=== PATIENT | male | born 1965 | race Caucasian/White ===

== ENCOUNTER 2021-09-09 15:30 | Emergency (ER) | payer MEDICAID, SELFPAY ==
[2021-09-09 15:31] VITALS: BP 115/75; PULSE 68; RESP 18; TEMP 37.1; O2SAT 98; BMI 29.3
--- NOTE | 2021-09-09 15:49 | CT_ITS ---
EXAM: CT ABDOMEN AND PELVIS WITHOUT INTRAVENOUS CONTRAST CLINICAL INDICATION: abdominal pain TECHNIQUE: Helically acquired images were obtained of the abdomen and pelvis without intravenous contrast. This CT exam was performed using one or more of the following dose reduction techniques: automated exposure control, adjustment of the mA and/or kV according to patient size, and/or use of iterative reconstruction technique. This report was created using [employer] report generation technology. COMPARISON: None. FINDINGS: LOWER THORAX: Unremarkable. Lung bases are clear. No cardiomegaly. No significant pericardial effusion. ABDOMEN: LIVER: Unremarkable. Homogeneous. GALLBLADDER AND BILE DUCTS: Unremarkable. No calcified gallstones. No gallbladder distention or wall edema. No intra- or extrahepatic biliary ductal dilation. PANCREAS: Unremarkable. No focal cystic mass. SPLEEN: Unremarkable. Normal size without focal cystic or solid mass. ADRENALS: Unremarkable. No nodules. KIDNEYS AND URETERS: Unremarkable. Normal renal size and position. No hydronephrosis. STOMACH AND BOWEL: Unremarkable. No stomach or bowel distention. No focal inflammatory change. PELVIS: APPENDIX: No evidence of acute appendicitis. BLADDER: Unremarkable. REPRODUCTIVE: Unremarkable as visualized. No mass. ABDOMEN and PELVIS: INTRAPERITONEAL SPACE: Unremarkable. No ascites or other fluid collection. No free air. BONES/JOINTS: Unremarkable. No suspicious lytic or blastic abnormality. SOFT TISSUES: Unremarkable. No discrete abdominal or pelvic wall hernia. VASCULATURE: Unremarkable. Abdominal aorta is non-dilated. LYMPH NODES: Unremarkable. No enlarged lymph nodes. CT/Abdomen/Pelvis without Cont IMPRESSION: Negative CT of the abdomen and pelvis without intravenous contrast. Electronically Signed: Dennis Drew MD at 17:09 EDT ,
--- NOTE | 2021-09-09 15:50 | EDS_ITS ---
HPI History of Present Illness Chief Complaint: Cold Sx Detail of Chief Complaint: Vomiting and sore throat and headache and abdominal pain Informant: patient Narrative Narrative: Patient presents to the emergency department with multiple co mplaints. He is asking for a COVID test. Patient states that he is had abdominal pain for about 2 days. Yesterday started having nausea and vomiting and threw up about 3 or 4 times. Patient states that he was able to eat today and has not vomited today. Today he woke up with a sore throat and a headache. He has had subjective fever. He denies diarrhea. He denies exposures to COVID. He has had the COVID-vaccine but not the booster. Patient's had prior hernia repair. Prior similar symptoms: No PFSH PFSH Medical History (Updated 09/09/21 @ 18:[address] Margie Foster, DO) Asthma Myocardial infarct MARGARITO (obstructive sleep apnea) Allergy/AdvReac Type Severity Reaction Status Date / Time No Known Allergies Allergy Verified 09/09/21 15:33 Surgical History (Updated 09/09/21 @ 16:06 by Ida Rockwell) H/O hernia repair Stented coronary artery Social History Smoking Status: Former smoker ROS ROS ED Constitutional Constitutional ED: Reports systems reviewed and no addt'l complaints, except as documented; Denies body ache(s), change in weight or chills Eyes Eyes: Denies acute decrease in peripheral vision, change in vision, double vision or loss of vision ENT ENT ED: Reports none and sore throat; Denies ear pain, lip swelling, loss taste/smell, neck pain or otalgia Cardiovascular Cardiovascular: Reports none; Denies abdominal pain, chest pain with activity, leg edema, lightheadedness, palpitations, rapid heart rate or syncope Respiratory/Chest Respiratory/Chest: Reports none; Denies change in mental status, dry cough, dyspnea, hemoptysis, shortness of breath at rest or shortness of breath with exe rtion Gastrointestinal Gastrointestinal: Reports none, abdominal pain, nausea and vomiting; Denies sanford ge in stool character, diarrhea, hematemesis, hematochezia, melena or rectal bleeding Genitourinary Genitourinary ED: Reports none; Denies abdominal discomfort, anuria, dysuria, genital pain or polyuria Musculoskeletal Musculoskeletal: Reports none; Denies arthralgias, back pain, difficulty walking, extremity pain, muscle weakness or myalgias Integumentary Reports none; Denies abscess or rash Neurologic Neurologic: Reports none and headache(s); Denies abnormal gait, confusion, focal weakness, frequent falls, loss of vision, numbness, paresthesias, radicular pain, vertigo or weakness Psychiatric Psychiatric: Reports systems reviewed and no addt'l complaints, except as documented and none; Denies behavioral changes, confusion, difficulty concentrating, hallucinations, suicidal ideation, tactile hallucinations or visual hallucinations Endocrine Endocrinology: Denies none, cold intolerance, excessive sweating, fatigue or heat intolerance Hematologic/Lymphatic Hematologic/Lymphatic: Reports none; Denies anemia, easy bleeding or easy bruising Allergic/Immunologic Allergic/Immunologic ED: Denies as per HPI, none, lip swelling, mouth swelling, throat swelling, tongue swelling or hives EXAM Physical Exam Const Vital Signs: 09/09/21 15:31 09/09/21 16:07 Temperature 98.7 F Temperature Source Temporal Pulse Rate 68 Respiratory Rate 18 Respiratory Effort Normal Non-Labored Respiratory Pattern Normal Blood Pressure 115/75 Blood Pressure Mean 88 Pulse Ox 98 Oxygen Delivery Method Room Air Positive well nourished and well developed General Appearance ED: well developed and NAD HEENT Reports TM's clear and moist mucous membranes HEENT Narrative: Pharynx-no significant erythema. No exudates. Uvula midline. No trismus. normocephalic and atraumatic; Negative for trauma or tenderness Tympanic Membrane ED: Yes TM's clear Eyes PERRL and EOMs intact bilaterally General Eye ED: Negative for pale conjunctiva or scleral icterus Neck no lymphadenopathy, supple and no JVD General: Negative for tenderness Chest Wall inspection of chest normal and palpation of chest normal Chest: Negative for tenderness Resp normal respiratory effort and clear to auscultation bilaterally Effort and Inspection: Negative for respiratory distress or pain with movement Auscultation: Negative for rhonchi, wheezes or diminished lung sounds Cardio regular rate, regular rhythm, S1 normal heart sound, S2 normal heart sound and no murmurs Peripheral Pulses: pulses 2+ throughout GI normal to inspection, nondistended, normoactive bowel sounds, soft to palpation, non-distended and no masses GI Narrative: Patient with tenderness over the periumbilical region and right lower quadrant with some guarding. There is no rebound, rigidity, or peritoneal signs. No masses palpated. No evidence of incarcerated hernia noted. Palpation: soft and tender Back/Spine no CVA tenderness and no thoracic nor lumbar tenderness Extremity normal to inspection General Extremety ED: Negative for edema General Extremity: Negative for edema Neuro oriented x3, CN's II-XII intact bilaterally, no sensory deficits noted and gait normal Sensorium / Orientation: awake, alert, oriented to person, oriented to place and oriented to time Motor Exam: strength 5/5 throughout and strength abnormal Psych mental status grossly normal Skin no rashes or lesions noted and no wounds MDM MDM MDM Narrative Medical decision making narrative: IV line established on arrival. Lab work-up was unremarkable. Urinalysis was normal. CT of the abdomen pelvis were unremarkable. Patient was negative for influenza and COVID-19. At this point I suspect likely viral etiology for symptomatology. Given that his symptoms are started yesterday I advised him to repeat a home COVID test and 2 to 3 days. Patient to return if persistent vomiting, worsening abdominal pain, increasing shortness of breath, or condition should worsen anyway. Lab Data Attestation: I reviewed the patient's lab results. Labs: Laboratory Results - last 24 hr 09/09/21 09/09/21 09/09/21 16:00 16:00 17:00 WBC 7.5 RBC 4.81 Hgb 14.4 Hct 46.3 MCV 96.3 H MCH 29.9 MCHC 31.1 L RDW Std Deviation 47.5 H RDW Coeff of Leticia 13.2 Plt Count 316 MPV 9.7 Immature Gran % (Auto) 0.300 Neut % (Auto) 57.7 Lymph % (Auto) 22.3 Lyman % (Auto) 14.9 H Eos % (Auto) 3.2 Baso % (Auto) 1.6 H Absolute Neuts (auto) 4.4 Absolute Lymphs (auto) 1.68 Nucleated RBC % 0 Sodium 144 Potassium 3.6 Chloride 110 H Carbon Dioxide 28.0 Anion Gap 6 BUN 20 H Creatinine 0.91 Estim Creat Clear Calc 86.65 Est GFR (MDRD) Af Amer 110 Est GFR (MDRD) Non-Af 91 BUN/Creatinine Ratio 21.9 H Glucose 117 H Calcium 8.5 Total Bilirubin 0.50 AST 13 L ALT 22 Alkaline Phosphatase 120 H Total Protein 6.6 Albumin 3.0 L Globulin 3.6 Albumin/Globulin Ratio 0.8 L Urine Color Yellow Urine Clarity Clear Urine pH 6.0 Ur Specific [place] 1.025 Urine Protein Negative Urine Glucose (UA) Normal Urine Ketones Negative Urine Occult Blood Negative Urine Nitrite Negative Urine Bilirubin Negative Urine Urobilinogen Normal Ur Leukocyte Esterase Negative Radiography Diagnostic Testing: Clinical Impression(s) from Imaging Studies Abdomen/Pelvis CT 09/09/21 15:49 IMPRESSION: Negative CT of the abdomen and pelvis without intravenous contrast. Electronically Signed: Dennis Drew MD at 17:09 EDT , Discharge Plan Triage Chief Complaint: Cold Sx ED Provider: Margie Foster Dx/Rx/DC Orders Clinical Impression: Acute viral syndrome Instructions: ED Viral Syndrome (Adult) Primary Care Provider: Rekha Lyons NP Referrals: Rekha Lyons NP, HOUSE REPAIRER-C [Primary Care Provider] - 3-5 Days Disposition Disposition: Home, Self Care
[2021-09-09 16:10] LABS: Absolute Lymphocyte Count 1.68 X10^3/uL (0.83-4.51); Absolute Neutrophil Count 4.4 X10^3/uL (2.0-7.7); Basophil# 0.12 X10^3/uL; Basophil% 1.6 % (0-1); Eosinophil# 0.24 X10^3/uL; Eosinophils% 3.2 % (0-5); Hematocrit 46.3 % (40-54); Hemoglobin 14.4 g/dL (13.0-16.5); Lymphocyte # 1.68 X10^3/ul (0.83-4.51); Lymphocyte % 22.3 % (19-41); Mean Corp Hgb Conc 31.1 g/dL (32-36); Mean Corpuscular Hgb 29.9 pg (27.0-32.0); Mean Corpuscular Volume 96.3 fL (80-94); Mean Platelet Vol. 9.7 fl (6.2-12.0); Monocyte# 1.12 X10^3/uL; Monocyte% 14.9 % (0-10); NRBC Flagged by Analyzer 0 % (0-5); Neutrophil # 4.36 X10^3/uL (2.7-7.7); Neutrophil % 57.7 % (47-70); Platelet Count 316 K/mm3 (150-450); RBC Distribution Width CV 13.2 % (11.6-14.6); RBC Distribution Width SD 47.5 fl (35.1-43.9); Red Blood Count 4.81 M/mm3 (4.6-6.2); White Blood Count 7.5 K/mm3 (4.4-11.0)
[2021-09-09 16:26] LABS: ALB/GLOB Ratio 0.8 RATIO (0.9-2.4); AST(SGOT) 13 U/L (15-37); Alanine Aminotransfer ALT/SGPT 22 U/L (16-61); Alkaline Phosphatase 120 U/L (45-117); Anion Gap 6 (5-15); BUN 20 mg/dL (7-18); BUN/Creat Ratio 21.9 RATIO (10-20); Calcium,Total 8.5 mg/dL (8.5-10.1); Chloride 110 mmol/L (98-107); Creatinine, Serum 0.91 mg/dL (0.70-1.30); EST Glomerular Filtration Rate 91 mL/min (>60); Est Glom Filt Rate - Afr Amer 110 mL/min (>60); Estimated Creatinine Clearance 86.65 ml/min; Globulin 3.6 g/dL (2.2-4.2); Glucose 117 mg/dL (74-106); Potassium 3.6 mmol/L (3.5-5.1); Protein, Total 6.6 g/dL (6.4-8.2); Sodium Level 144 mmol/L (136-145)
[2021-09-09] MEDS: 0.9% Normal Saline 1,000 ML 150 ML IV (17:01)
[2021-09-09 17:08] LABS: Bacteria 0 SEEN /hpf (None Seen); Mucous, Urine 0 SEEN /hpf (<or=2+); Red Blood Cells-Urine 0 SEEN /hpf (0-5); Squamous Epithelial Cells - UA 0 SEEN /hpf (0-5); White Blood Cells 0 SEEN /hpf (0-5)
[2021-09-09 17:10] LABS: Color, Urine Yellow (Yellow); Glucose, Dipstick Normal (Normal); Ketone-Dipstick Negative (Negative); Leukocyte Esterase-Dipstick Negative /ul (Negative); Nitrite-Dipstick Negative (Negative); Occult Blood-Urine Negative /ul (Negative); Protein-Dipstick Negative (Negative); Specific Gravity, Urine 1.025 (1.002-1.030); Urine Bilirubin Dipstick Negative (Negative); Urine Clarity Clear (Clear); Urine Urobilinogen Normal (Normal)
[2021-09-09 18:00] VITALS: BP 142/94; PULSE 59; RESP 18; O2SAT 97
[2021-09-09 18:01] VITALS: BP 142/94; PULSE 59; RESP 16; O2SAT 97
== END 2021-09-09 18:17 | disposition home or self-care (01) ==
PROVIDERS: Emergency Provider Emergency Medicine; PCP Nurse Practitioner Family; Visit Provider Emergency Medicine
DX: B34.9 Viral infection, unspecified (principal); Z87.891 Personal history of nicotine dependence; R10.9 Unspecified abdominal pain; R11.2 Nausea with vomiting, unspecified; I25.2 Old myocardial infarction; J45.909 Unspecified asthma, uncomplicated; Z95.5 Presence of coronary angioplasty implant and graft
CPT/HCPCS: 74176; 80053; 81001; 85025; 87428; 96360; 96361; 99283; J7030; A4216

== ENCOUNTER 2021-11-09 15:16 | Observation (INO) | payer MEDICAID, SELFPAY ==
[2021-11-09 15:17] VITALS: BP 141/97; PULSE 81; RESP 18; TEMP 36.7; O2SAT 99; BMI 31.4
--- NOTE | 2021-11-09 15:44 | EDS_ITS ---
HPI History of Present Illness Chief Complaint: Wound Detail of Chief Complaint: Back pain postoperative, unable to care for self. Informant: patient Narrative Narrative: Patient had back surgery yesterday at [facility] with Dr. Jaimes. Patient states he was supposed to have L4 removed. He was discharged home in spite of his concerns for living alone. Patient states he is not able to care for himself. He has been in contact with his insurance company as well as Dr. Jaimes who advised him to come in for admission and will need placement. [facility] Medical History Asthma Encounter for laboratory testing for COVID-19 virus Myocardial infarct MARGARITO (obstructive sleep apnea) Shingles Home Medications prednisone 50 mg tablet 50 mg PO DAILY #5 tabs 09/12/21 [Rx Last Taken Unknown] valacyclovir 1 gram tablet 1,000 mg PO TID #21 tabs 09/12/21 [Rx Last Taken Unknown] acetaminophen 300 mg-codeine 30 mg tablet tab 11/09/21 [History Last Taken Unknown] albuterol sulfate 90 mcg/actuation aerosol inhaler (Ventolin HFA) inh inhalation 11/09/21 [History Last Taken Unknown] lisinopril 20 mg tablet tab 11/09/21 [History Last Taken Unknown] mometasone-formoterol HFA 200 mcg-5 mcg/actuation aerosol inhaler (Dulera) inh inhalation 11/09/21 [History Last Taken Unknown] valacyclovir 1 gram tablet mg 11/09/21 [History Last Taken Unknown] Allergy/AdvReac Type Severity Reaction Status Date / Time No Known Allergies Allergy Verified 11/09/21 15:18 Surgical History H/O hernia repair Stented coronary artery Social History Smoking Status: Former smoker ROS ROS ED Constitutional Constitutional ED: Denies chills or fever(s) Eyes Eyes: Denies change in vision or discharge from eye(s) ENT ENT ED: Denies discharge from eye(s), rhinorrhea or sore throat Cardiovascular Cardiovascular: Denies chest pain or palpitations Respiratory/Chest Respiratory/Chest: Denies cough or dyspnea Gastrointestinal Gastrointestinal: Denies abdominal pain, diarrhea, nausea or vomiting Genitourinary Genitourinary ED: Denies difficulty urinating or dysuria Musculoskeletal Musculoskeletal: Reports back pain and extremity pain Integumentary Denies Abrasions or rash Neurologic Neurologic: Denies headache(s) Psychiatric Psychiatric: Denies anxiety or depression Allergic/Immunologic Allergic/Immunologic ED: Denies lip swelling or urticaria EXAM Physical Exam Const Vital Signs: 11/09/21 15:17 Temperature 98.1 F Temperature Source Temporal Pulse Rate 81 Respiratory Rate 18 Blood Pressure 141/97 H Blood Pressure Mean 111 Pulse Ox 99 Oxygen Delivery Method Room Air Positive well nourished and well developed General Appearance ED: well developed HEENT Reports normocephalic and head/scalp atraumatic Eyes PERRL and EOMs intact bilaterally Neck supple Chest Wall inspection of chest normal and palpation of chest normal Resp normal respiratory effort and clear to auscultation bilaterally Cardio regular rate and regular rhythm GI normal to inspection, nondistended, normoactive bowel sounds Palpation: soft Back/Spine Back/Spine Narrative: Dressing in place to the lower back wound. No surrounding cellulitis noted. Extremity normal to inspection Neuro oriented x3 and no sensory deficits noted Sensorium / Orientation: alert Psych mental status grossly normal Skin no rashes or lesions noted MDM MDM MDM Narrative Medical decision making narrative: I did speak with social work. His insurance will require admission and a preauthorization. I will get CBC and chemistry studies will speak with the hospitalist for admission. Discharge Plan Triage Chief Complaint: Wound ED Provider: Calli Mcfadden Dx/Rx/DC Orders Clinical Impression: Post-op pain, Declining functional status Prescriptions: No Action valacyclovir 1 gram tablet 1,000 mg PO TID Qty: 21 0RF prednisone 50 mg tablet 50 mg PO DAILY Qty: 5 0RF valacyclovir 1 gram tablet Label Comments: TAKE 1 TABLET BY MOUTH 3 TIMES A DAY lisinopril 20 mg tablet acetaminophen-codeine 300-30 mg tablet Label Comments: take 1 tablet by mouth every 8 hours if needed for pain for 7 days albuterol sulfate [Ventolin HFA] 90 mcg/actuation HFA aerosol inhaler INHALATION Dulera 200-5 mcg/actuation HFA aerosol inhaler INHALATION Primary Care Provider: Rekha Lyons NP Referrals: Rekha Lyons NP, SOUNDSCRIBER MECHANIC-C [Primary Care Provider] - Disposition Disposition: Acute Care Hospital [facility]
--- NOTE | 2021-11-09 15:48 | CM.ED ---
CASI called and confirmed with ALECIA Faulkner and she confirmed patient will need precert for SNF with [facility]. CASI will update MD. Jenny JACKSON
[2021-11-09] MEDS: Ondansetron ODT 4 MG Tablet PO (16:05)
[2021-11-09 16:07] LABS: Absolute Neutrophil Count 8.4 X10^3/uL (2.0-7.7); Basophil# 0.07 X10^3/uL; Basophil% 0.5 % (0-1); Eosinophils% 0.7 % (0-5); Hematocrit 46.5 % (40-54); Hemoglobin 14.6 g/dL (13.0-16.5); Lymphocyte % 14.2 % (19-41); Mean Corp Hgb Conc 31.4 g/dL (32-36); Mean Corpuscular Hgb 30.3 pg (27.0-32.0); Mean Corpuscular Volume 96.5 fL (80-94); Mean Platelet Vol. 9.8 fl (6.2-12.0); Monocyte# 2.85 X10^3/uL; Monocyte% 21.3 % (0-10); NRBC Flagged by Analyzer 0 % (0-5); POSITIVE DIFFERENTIAL YES; Platelet Count 280 K/mm3 (150-450); RBC Distribution Width CV 13.6 % (11.6-14.6); RBC Distribution Width SD 48.6 fl (35.1-43.9); Red Blood Count 4.82 M/mm3 (4.6-6.2); White Blood Count 13.4 K/mm3 (4.4-11.0)
[2021-11-09 16:13] LABS: Differential Indicated SCAN CRITERIA MET
[2021-11-09 16:18] VITALS: BP 121/83; PULSE 76; RESP 16; TEMP 36.7; O2SAT 100
[2021-11-09 16:24] LABS: Anion Gap 3 (5-15); BUN 18 mg/dL (7-18); BUN/Creat Ratio 17.8 RATIO (10-20); Calcium,Total 8.8 mg/dL (8.5-10.1); Chloride 108 mmol/L (98-107); Creatinine, Serum 1.01 mg/dL (0.70-1.30); EST Glomerular Filtration Rate 81 mL/min (>60); Est Glom Filt Rate - Afr Amer 98 mL/min (>60); Estimated Creatinine Clearance 78.07 ml/min; Glucose 102 mg/dL (74-106); Sodium Level 142 mmol/L (136-145)
--- NOTE | 2021-11-09 16:28 | HP.PCM.HOS_ITS ---
HPI - General General Date of Admission: 11/09/21 HPI Narrative SHAWNA PRAJAPATI, is a 56 M who presents with intractable back pain. Per patient he underwent lumbar laminectomy at an outside hospital by Dr. Jaimes a day prior to his admission. He was apparently sent home following his procedure. Per patient has not been able to function since arriving at home. He is hardly been able to ambulate and carry out his activities of daily living. He called his orthopedic surgeon and was instructed to present to the ED. Admitted to regular nursing floor as a case of adult failure to thrive [facility] Medical History Asthma Encounter for laboratory testing for COVID-19 virus Myocardial infarct MARGARITO (obstructive sleep apnea) Shingles Home Medications acetaminophen 300 mg-codeine 30 mg tablet 1 tab PO Q8H pain 11/09/21 [History Last Taken 11/08/21] albuterol sulfate 90 mcg/actuation aerosol inhaler (Ventolin HFA) 1 inh inhalation BID SOB 11/09/21 [History Last Taken 11/09/21] lisinopril 20 mg tablet 20 mg PO DAILY bp 11/09/21 [History Last Taken 3 Months Ago ~08/10/21] mometasone-formoterol HFA 200 mcg-5 mcg/actuation aerosol inhaler (Dulera) 1 inh inhalation BID SOB 11/09/21 [History Last Taken 11/09/21] Allergy/AdvReac Type Severity Reaction Status Date / Time No Known Allergies Allergy Verified 11/09/21 15:18 Family History (Updated 11/09/21 @ 16:[address] Alfred Baptiste MD) Father No problems noted. Surgical History H/O hernia repair Stented coronary artery Social History Smoking Status: Former smoker ROS ROS Narrative GENERAL: denies fever, chills, night sweats, HEENT: denies headache, sinus congestion, RESPIRATORY: denies cough, sputum production, CARDIAC: denies chest pain, palpitations, orthopnea, GASTROINTESTINAL: denies abdominal pain, nausea, GENITOURINARY: denies dysuria, urgency, frequency, EXTREMITY: denies swelling MUSCULOSKELETAL: Back pain NEUROLOGIC: denies focal numbness, weakness, tingling HEMATOLOGIC: denies easy bruising and/or hemorrhage INTEGUMENT: denies rashes PSYCHIATRIC: denies suicidal or homicidal ideation Vital Signs Vital Signs Vital Signs: 11/09/21 15:17 11/09/21 16:18 Temperature 98.1 F 98.1 F Temperature Source Temporal Temporal Pulse Rate 81 76 Respiratory Rate 18 16 Blood Pressure 141/97 H 121/83 H Blood Pressure Mean 111 95 Pulse Ox 99 100 Oxygen Delivery Method Room Air Room Air Weight Weight: 93.894 kg Body Mass Index (BMI) 31.4 Physical Exam Narrative GENERAL: cooperative HEENT: Atraumatic; EYES; Anicteric, Normal Conjunctiva NECK; supple, normal thyroid, RESPIRATORY: Diminished to auscultation CARDIOVASCULAR: Regular S1 S2, GI: soft, normoactive bowel sounds, : No Renal angle tenderness; EXTREMITIES: No edema, no clubbing, MUSCULOSKELETAL: Surgical dressing on lower back NEURO: Awake; no lateralizing signs. SKIN: No Rash PSYCH; Flat affect Results Lab / Micro Data Result Diagrams: 11/09/21 16:00 11/09/21 16:00 Labs: Laboratory Results - last 24 hr 11/09/21 16:00: WBC 13.4 H, RBC 4.82, Hgb 14.6, Hct 46.5, MCV 96.5 H, MCH 30.3, MCHC 31.4 L, RDW Std Deviation 48.6 H, RDW Coeff of Leticia 13.6, Plt Count 280, MPV 9.8, Immature Gran % (Auto) 0.300, Neut % (Auto) 63.0, Lymph % (Auto) 14.2 L, [place] % (Auto) 21.3 H, Eos % (Auto) 0.7, Baso % (Auto) 0.5, Absolute Neuts (auto) 8.4 H, Absolute Lymphs (auto) 1.90, Nucleated RBC % 0 11/09/21 16:00: Sodium 142, Potassium 4.0, Chloride 108 H, Carbon Dioxide 31.0, Anion Gap 3 L, BUN 18, Creatinine 1.01, Estim Creat Clear Calc 78.07, Est GFR (MDRD) Af Amer 98, Est GFR (MDRD) Non-Af 81, BUN/Creatinine Ratio 17.8, Glucose 102, Calcium 8.8 Assessment & Plan Assessment/Plan (1) Declining functional status: (2) Post-op pain: PLAN: Plan Patient is a 56-year-old gentleman who presented to the [facility] ER a day after undergoing lumbar laminectomy at [facility] in [facility] 1. Adult failure to thrive ? Following recent back surgery at [place]. Patient has been admitted to regular nursing floor requested for PT OT eval and consultation placed to patient's surgeon 2. Coronary artery disease ? With previous stent placement 3. Mild intermittent asthma ? Currently not in exacerbation aerosol treatments as needed 4. COPD ? Stable aerosol treatments as needed 5. Hypertension - Blood pressure controlled, home medications continued with dose adjustment as needed 6. Class I obesity with BMI of 31.5 ? Weight loss advised 7. DVT prophylaxis ? SC Lovenox Charges/Coding Visit Charges OBSV E&M: 44727 Initial observation care L3
[2021-11-09 16:31] LABS: Anisocytosis RARE; Macrocytosis RARE; Platelet Estimate ADEQUATE (ADEQ); Red Cell Morphology N CHROM NORMAL (NORM C&C)
[2021-11-09] MEDS: Metoclopramide 10 MG/2 ML Vial 5 MG IV (17:17)
[2021-11-09] MEDS: DiphenhydrAMINE 50 MG/ML Syringe 25 MG IV (17:17)
[2021-11-09 17:54] VITALS: BMI 30.4
[2021-11-09 18:25] VITALS: BP 144/64; PULSE 92; RESP 18; TEMP 36.8; O2SAT 95
[2021-11-09] MEDS: Acetaminophen 500 MG Tablet 1000 MG PO ×2 (18:50→23:57)
--- NOTE | 2021-11-09 19:12 | MRI_ITS ---
EXAM: MR LUMBAR SPINE WITHOUT INTRAVENOUS CONTRAST CLINICAL INDICATION: post back surgery/ pain TECHNIQUE: Multiplanar and multisequence MR images of the lumbar spine without intravenous contrast. This report was created using [employer] technology. COMPARISON: CT scan of the abdomen and pelvis 09/09/2021. FINDINGS: VERTEBRAE: Status post L4 laminectomy. EPIDURAL SPACE: No definite epidural fluid collection. SPINAL CORD: Unremarkable. Normal position and signal intensity of the conus medullaris. SOFT TISSUES: Fluid collection measuring 6 x 4.5 x 2.2 cm with gas within it in the deep subcutaneous tissues at the wound site. DISCS/SPINAL CANAL/NEURAL FORAMINA: L1-L2: Unremarkable. Normal disc height and morphology. Normal spinal canal and lateral recesses. Normal neuroforamina. L2-L3: Unremarkable. Normal disc height and morphology. Normal spinal canal and lateral recesses. Normal neuroforamina. 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 Bilateral mild facet arthropathy. Normal neuroforamina. L4-L5: L4 laminectomy. Mild broad-based disc bulge. Severe spinal stenosis with narrowing of the sac to about 5 mm due to mild broad-based bulge and congenital narrowing of the canal with marked effacement of the CSF around the cauda equina. Severe degenerative changes about the L4-L5 facets. Normal neuroforamina. L5-S1: Mild generalized disc bulge. Moderate narrowing of the canal due to disc bulge and congenital short pedicles. Moderate bilateral facet arthropathy. Normal neuroforamina. MRI/Spine Lumbar (Routine) IMPRESSION: 1. Severe spinal stenosis at L4-L5 with narrowing of the canal to 5 mm and significant compression of the cauda equina. Status post L4 laminectomy. No definite epidural collection. 2. Fluid collection measuring 6 x 4.5 x 2.2 cm with gas within it in the deep subcutaneous tissues at the wound site. Abscess cannot be excluded. Electronically Signed: Marcus Alba MD at 20:25 EDT ,
[2021-11-09] MEDS: 0.9% Saline Lock 10 ML Syringe IV (21:01)
[2021-11-09] MEDS: Senna/Docusate Sodium 1 Tablet 2 TABLET PO (21:01)
[2021-11-09] MEDS: HYDROmorphone 1 MG/ML Syringe IV (21:01)
[2021-11-10] VITALS (10 sets, daily range): BP systolic 95–133; BP diastolic 58–90; PULSE 67–88; RESP 12–22; TEMP 36.8–37.2; O2SAT 96–99
[2021-11-10] MEDS: Acetaminophen 500 MG Tablet 1000 MG PO (06:07)
[2021-11-10 06:59] LABS: Absolute Lymphocyte Count 1.86 X10^3/uL (0.83-4.51); Absolute Neutrophil Count 7.9 X10^3/uL (2.0-7.7); Basophil# 0.09 X10^3/uL; Basophil% 0.7 % (0-1); Eosinophils% 0.8 % (0-5); Hematocrit 44.4 % (40-54); Hemoglobin 13.7 g/dL (13.0-16.5); Lymphocyte # 1.86 X10^3/ul (0.83-4.51); Lymphocyte % 14.7 % (19-41); Mean Corp Hgb Conc 30.9 g/dL (32-36); Mean Corpuscular Hgb 30.4 pg (27.0-32.0); Mean Corpuscular Volume 98.7 fL (80-94); Mean Platelet Vol. 10.1 fl (6.2-12.0); Monocyte# 2.69 X10^3/uL; Monocyte% 21.2 % (0-10); NRBC Flagged by Analyzer 0 % (0-5); Neutrophil # 7.87 X10^3/uL (2.7-7.7); Neutrophil % 62.2 % (47-70); POSITIVE DIFFERENTIAL YES; Platelet Count 254 K/mm3 (150-450); RBC Distribution Width CV 13.8 % (11.6-14.6); RBC Distribution Width SD 50.4 fl (35.1-43.9); White Blood Count 12.7 K/mm3 (4.4-11.0)
[2021-11-10 07:03] LABS: Differential Indicated SCAN CRITERIA MET
[2021-11-10 07:21] LABS: Differential Comment SCANNED
[2021-11-10] MEDS: Budesonide Respules 0.5 MG/2 ML AMPUL.NEB. INHALATION ×2 (07:21→18:59)
[2021-11-10] MEDS: Albuterol 2.5 MG/3 ML VIAL.NEB. INHALATION ×3 (07:21→18:59)
--- NOTE | 2021-11-10 07:24 | PCM.PN.HOSP ---
Subjective Subjective Patient is a 56-year-old gentleman who presented to the [facility] ER a day after undergoing lumbar laminectomy at [facility] in [facility] 11/10/2021; patient seen still complains of intractable pain. Scheduled to be evaluated by PT/OT and pediatric social worker Objective Data Objective Data Vital Signs: Vital Signs Temp Pulse Resp BP Pulse Ox O2 Del Method O2 Flow Rate 98.9 F 67 16 112/74 99 Nasal Cannula 2 11/10/21 05:45 11/10/21 05:45 11/10/21 05:45 11/10/21 05:45 11/10/21 05:45 11/10/21 05:45 11/10/21 00:00 Oxygen Flow Rate (L/min) 2 Oxygen Delivery Method Nasal Cannula Weight: 90.764 kg Body Mass Index (BMI) 30.4 Intake & Output: Intake and Output for Last 24 Hours 11/08/21 11/09/21 11/10/21 23:59 23:59 23:59 Intake Total 300 / 300 Output Total 350 / 350 Balance 300 / 200 -350 / -350 Lab / Micro Data Result Diagrams: 11/10/21 06:19 11/10/21 06:19 Labs: Laboratory Results - last 24 hr 11/09/21 16:00: WBC 13.4 H, RBC 4.82, Hgb 14.6, Hct 46.5, MCV 96.5 H, MCH 30.3, MCHC 31.4 L, RDW Std Deviation 48.6 H, RDW Coeff of Leticia 13.6, Plt Count 280, MPV 9.8, Immature Gran % (Auto) 0.300, Neut % (Auto) 63.0, Lymph % (Auto) 14.2 L, [place] % (Auto) 21.3 H, Eos % (Auto) 0.7, Baso % (Auto) 0.5, Absolute Neuts (auto) 8.4 H, Absolute Lymphs (auto) 1.90, Nucleated RBC % 0, Differential Comment SEE COMMENT, Diff Path Review May foll, Platelet Estimate ADEQUATE, RBC Morphology N CHROM, Anisocytosis RARE, Macrocytosis RARE 11/09/21 16:00: Sodium 142, Potassium 4.0, Chloride 108 H, Carbon Dioxide 31.0, Anion Gap 3 L, BUN 18, Creatinine 1.01, Estim Creat Clear Calc 78.07, Est GFR (MDRD) Af Amer 98, Est GFR (MDRD) Non-Af 81, BUN/Creatinine Ratio 17.8, Glucose 102, Calcium 8.8 11/10/21 06:19: WBC 12.7 H, RBC 4.50 L, Hgb 13.7, Hct 44.4, MCV 98.7 H, MCH 30.4, MCHC 30.9 L, RDW Std Deviation 50.4 H, RDW Coeff of Leticia 13.8, Plt Count 254, MPV 10.1, Immature Gran % (Auto) 0.400, Neut % (Auto) 62.2, Lymph % (Auto) 14.7 L, [place] % (Auto) 21.2 H, Eos % (Auto) 0.8, Baso % (Auto) 0.7, Absolute Neuts (auto) 7.9 H, Absolute Lymphs (auto) 1.86, Nucleated RBC % 0, Differential Comment SCANNED, Diff Path Review May foll Radiography Diagnostic Testing: Radiology Impression Lumbar Spine MRI 11/09/21 19:12 IMPRESSION: 1. Severe spinal stenosis at L4-L5 with narrowing of the canal to 5 mm and significant compression of the cauda equina. Status post L4 laminectomy. No definite epidural collection. 2. Fluid collection measuring 6 x 4.5 x 2.2 cm with gas within it in the deep subcutaneous tissues at the wound site. Abscess cannot be excluded. Electronically Signed: Marcus Alba MD at 20:25 EDT , Physical Exam Narrative GENERAL: cooperative HEENT: Atraumatic; EYES; Anicteric, Normal Conjunctiva NECK; supple, normal thyroid, RESPIRATORY: Diminished to auscultation CARDIOVASCULAR: Regular S1 S2, GI: soft, normoactive bowel sounds, : No Renal angle tenderness; EXTREMITIES: No edema, no clubbing, MUSCULOSKELETAL: Surgical dressing on lower back NEURO: Awake; no lateralizing signs. SKIN: No Rash PSYCH; Flat affect Assessment & Plan Assessment/Plan (1) Declining functional status: (2) Post-op pain: PLAN: Plan Patient is a 56-year-old gentleman who presented to the [facility] ER a day after undergoing lumbar laminectomy at [facility] in [facility] 1. Adult failure to thrive ? Following recent back surgery at [place]. Patient has been admitted to regular nursing floor requested for PT OT eval and consultation placed to patient's surgeon -11/10/2021; patient seen still complains of intractable pain. Scheduled to be evaluated by PT/OT and pediatric social worker 2. Coronary artery disease ? With previous stent placement 3. Mild intermittent asthma ? Currently not in exacerbation aerosol treatments as needed 4. COPD ? Stable aerosol treatments as needed 5. Hypertension - Blood pressure controlled, home medications continued with dose adjustment as needed 6. Class I obesity with BMI of 31.5 ? Weight loss advised 7. DVT prophylaxis ? SC Lovenox Charges/Coding Visit Charges OBSV E&M: 24277 Subsequent observation care L2
--- NOTE | 2021-11-10 07:26 | CPS ---
Pt wears a CPAP @[facility] at home, he will ask family to bring his machine. He was offered a [facility] machine but he declined.
[2021-11-10 07:31] LABS: Anion Gap 2 (5-15); BUN 18 mg/dL (7-18); BUN/Creat Ratio 18.2 RATIO (10-20); Calcium,Total 8.4 mg/dL (8.5-10.1); Chloride 109 mmol/L (98-107); Creatinine, Serum 0.99 mg/dL (0.70-1.30); EST Glomerular Filtration Rate 83 mL/min (>60); Est Glom Filt Rate - Afr Amer 100 mL/min (>60); Estimated Creatinine Clearance 79.65 ml/min; Glucose 94 mg/dL (74-106); Potassium 4.2 mmol/L (3.5-5.1); Sodium Level 142 mmol/L (136-145)
[2021-11-10] MEDS: HYDROmorphone 1 MG/ML Syringe IV ×2 (10:44→20:08)
[2021-11-10] MEDS: 0.9% Saline Lock 10 ML Syringe IV ×2 (10:45→20:08)
[2021-11-10] MEDS: Enoxaparin 40 MG/0.4 ML Syringe SC (10:48)
[2021-11-10] MEDS: Lisinopril 20 MG Tablet PO (10:48)
[2021-11-10] MEDS: Acetaminophen/Codeine #3 Tablet 1 TABLET PO (13:45)
[2021-11-10] MEDS: Senna/Docusate Sodium 1 Tablet 2 TABLET PO ×2 (13:45→20:10)
--- NOTE | 2021-11-10 16:31 | CASEMGMT ---
Social Work Note SW in to speak with pt. SW introduced self and role at [facility]. Pt confirms he is agreeable to going to SNF. Patient was provided a list of SNF providers including quality and resource use data and consistent with the patient?s preferred geographic region, medical needs, and insurance network. Pt states that his three choices are 1. [facility] 2. [facility] 3. [facility]. SW explained that referrals will be sent out Friday to SNF to inquire about bed availability and once a facility has accepted pt, a pre-cert will be needed. Pt states understanding. Plan: SNF pending acceptance and pre-cert Martita Meyer EARLY CHILDHOOD ASSISTANT, FLORICULTURIST
--- NOTE | 2021-11-10 22:32 | CPS ---
[2223] Pt. wasn't entirely sure what his CPAP pressure was at home, but he did state, I think there's a 1, 1 and 0 in a [place] on my machine. He did agree to wear one of our machines tonight because he's missing the pressure at night, and he stated that there was nobody able to bring in his home unit at this time. I put pt. on BiPAP 12/03 to see if he was okay with the settings. Pt. stated that the pressure felt really good, and he wanted to try BiPAP at this time, due to increase comfort it's providing him over CPAP +11.
[2021-11-11] VITALS (9 sets, daily range): BP systolic 112–143; BP diastolic 72–90; PULSE 66–95; RESP 12–22; TEMP 36.8–37.2; O2SAT 90–98
[2021-11-11] MEDS: Acetaminophen/Codeine #3 Tablet 1 TABLET PO ×2 (04:13→22:56)
--- NOTE | 2021-11-11 07:28 | PCM.PN.HOSP ---
Subjective Subjective Patient seen still complains of significant pain in the back. Patient was seen by case management plan is for patient to be transferred to a longterm facility pending insurance approval Objective Data Objective Data Vital Signs: Vital Signs Temp Pulse Resp BP Pulse Ox O2 Del Method O2 Flow Rate 98.3 F 66 18 112/72 94 Nasal Cannula 2 11/11/21 02:19 11/11/21 02:19 11/11/21 02:19 11/11/21 02:19 11/11/21 04:45 11/11/21 04:45 11/11/21 04:45 FiO2 28 11/11/21 00:31 Oxygen Flow Rate (L/min) 2 Oxygen Delivery Method Nasal Cannula Weight: 90.764 kg Body Mass Index (BMI) 30.4 Intake & Output: Intake and Output for Last 24 Hours 11/09/21 11/10/21 11/11/21 23:59 23:59 23:59 Intake Total 300 / 300 1650 / 1650 Output Total 1300 / 1900 1050 / 1050 Balance 300 / 200 350 / -250 -1050 / -1050 Lab / Micro Data Result Diagrams: 11/10/21 06:19 11/10/21 06:19 Labs: Laboratory Results - last 24 hr 11/10/21 06:19: Sodium 142, Potassium 4.2, Chloride 109 H, Carbon Dioxide 31.0, Anion Gap 2 L, BUN 18, Creatinine 0.99, Estim Creat Clear Calc 79.65, Est GFR (MDRD) Af Amer 100, Est GFR (MDRD) Non-Af 83, BUN/Creatinine Ratio 18.2, Glucose 94, Calcium 8.4 L Physical Exam Narrative GENERAL: cooperative HEENT: Atraumatic; EYES; Anicteric, Normal Conjunctiva NECK; supple, normal thyroid, RESPIRATORY: Diminished to auscultation CARDIOVASCULAR: Regular S1 S2, GI: soft, normoactive bowel sounds, : No Renal angle tenderness; EXTREMITIES: No edema, no clubbing, MUSCULOSKELETAL: Surgical dressing on lower back NEURO: Awake; no lateralizing signs. SKIN: No Rash PSYCH; Flat affect Assessment & Plan Assessment/Plan (1) Declining functional status: (2) Post-op pain: PLAN: Plan Patient is a 56-year-old gentleman who presented to the [facility] ER a day after undergoing lumbar laminectomy at [facility] in [facility] 1. Adult failure to thrive ? Following recent back surgery at [place]. Patient has been admitted to regular nursing floor requested for PT OT eval and consultation placed to patient's surgeon -11/10/2021; patient seen still complains of intractable pain. Scheduled to be evaluated by PT/OT and social studies teacher -11/11/2021; Patient seen still complains of significant pain in the back. Patient was seen by case management plan is for patient to be transferred to a longterm facility pending insurance approval 2. Coronary artery disease ? With previous stent placement 3. Mild intermittent asthma ? Currently not in exacerbation aerosol treatments as needed 4. COPD ? Stable aerosol treatments as needed 5. Hypertension - Blood pressure controlled, home medications continued with dose adjustment as needed 6. Class I obesity with BMI of 31.5 ? Weight loss advised 7. DVT prophylaxis ? MARIOLA Sherman Charges/Coding Visit Charges OBSV E&M: 47265 Subsequent observation care L2
[2021-11-11] MEDS: Budesonide Respules 0.5 MG/2 ML AMPUL.NEB. INHALATION ×2 (07:33→19:02)
[2021-11-11] MEDS: Albuterol 2.5 MG/3 ML VIAL.NEB. INHALATION ×3 (07:33→19:01)
[2021-11-11] MEDS: Senna/Docusate Sodium 1 Tablet 2 TABLET PO ×2 (08:26→22:56)
[2021-11-11] MEDS: Lisinopril 20 MG Tablet PO (10:13)
[2021-11-11] MEDS: Polyethylene Glycol 3350 17 GM PACKET PO (14:35)
--- NOTE | 2021-11-11 14:46 | NURSING ---
pt reports passing gas but that senna not working for constipation. not eating much as well d/t. dr. david texted and miralax ordered. pt given and told to not try and overdo it with fluids since bloated. pt refusing any pain meds till i move my bowels discussed with pt need of dulcolax if miralax not effective. pox only 90% on ra and pt given incentive spirometer and discussed importance of
--- NOTE | 2021-11-11 16:48 | RAD_ITS ---
INDICATION: r/o obstruction/ileus EXAMINATION/TECHNIQUE: X-RAY - AP XR Abdomen W/ Decub and/or Erect Views COMPARISON: CT abdomen and pelvis 09/09/2021 FINDINGS: BOWEL GAS PATTERN: No abnormally distended, air-filled bowel loops or air fluid levels. No abnormal stool load to suggest constipation. FREE AIR: Not assessed on a single supine view. ORGANOMEGALY: Not seen. CALCIFICATIONS: No abnormal calcifications observed. LOWER CHEST: No acute pathology. BONES AND SOFT TISSUES: No acute pathology. RAD/Abd Decub and/or Erect(Portabl IMPRESSION: No evidence of obstruction or ileus. Electronically Signed: Marcus Arellano DO at 19:57 EDT ,
[2021-11-11] MEDS: 0.9% Saline Lock 10 ML Syringe IV (18:36)
[2021-11-11] MEDS: Ondansetron 4 MG/2 ML Vial IV (18:36)
[2021-11-12] VITALS (11 sets, daily range): BP systolic 97–118; BP diastolic 52–70; PULSE 72–97; RESP 16–22; TEMP 36.6–36.8; O2SAT 86–97
[2021-11-12] MEDS: Albuterol 2.5 MG/3 ML VIAL.NEB. INHALATION ×3 (07:00→18:57)
[2021-11-12] MEDS: Budesonide Respules 0.5 MG/2 ML AMPUL.NEB. INHALATION ×2 (07:06→18:57)
--- NOTE | 2021-11-12 08:56 | CASEMGMT ---
Discharge Tanner Rotary Drum Continuous Process Leila Castro Recruitment Specialist faxed over a referral to [facility]. Will follow up. Leila Chinchilla Discharge Tanner Rotary [employer] Continuous Process
[2021-11-12] MEDS: Lisinopril 20 MG Tablet PO (09:41)
[2021-11-12] MEDS: Polyethylene Glycol 3350 17 GM PACKET PO (09:45)
[2021-11-12] MEDS: Fleet Enema 1 ML RC (10:13)
--- NOTE | 2021-11-12 10:20 | CASEMGMT ---
Discharge Pit Steward Leila Martin called [facility] to checked up on referral. Admissions is currently unavailable left a message with the telephone operator receptionist. Will keep following. Leila Chinchilla Discharge Pit Steward
--- NOTE | 2021-11-12 11:43 | PN.HOSP_ITS ---
Subjective Subjective Patient seen and examined. He complains of constipation and abdominal bloating. He is passing gas. He is still having some back pain. Review of systems is otherwise negative. Objective Data Objective Data Vital Signs: Vital Signs Temp Pulse Resp BP Pulse Ox O2 Del Method O2 Flow Rate 98.3 F 82 16 101/69 97 Room Air 2 11/12/21 09:29 11/12/21 09:29 11/12/21 09:29 11/12/21 09:29 11/12/21 09:29 11/12/21 09:29 11/12/21 08:00 FiO2 28 11/11/21 00:31 Oxygen Flow Rate (L/min) 2 Oxygen Delivery Method Room Air Weight: 200 lb 1.606 oz Body Mass Index (BMI) 30.4 Intake & Output: Intake and Output for Last 24 Hours 11/10/21 11/11/21 11/12/21 23:59 23:59 23:59 Intake Total 1650 / 1650 660 / 660 Output Total 1300 / 1900 1525 / 1975 700 / 700 Balance 350 / -250 -865 / -1315 -700 / -700 Lab / Micro Data Result Diagrams: 11/10/21 06:19 11/10/21 06:19 Radiography Diagnostic Testing: Radiology Impression Abdomen X-Ray 11/11/21 16:48 IMPRESSION: No evidence of obstruction or ileus. Electronically Signed: Marcus Arellano DO at 19:57 EDT , Physical Exam Const alert, oriented x3, no apparent distress and average body habitus HEENT head/scalp atraumatic, moist oral mucous membranes and oropharynx normal Eyes EOMs intact bilaterally and conjunctivae normal Neck no lymphadenopathy, supple and no JVD Resp normal respiratory effort and no retractions Cardio regular rate, regular rhythm, S1 normal heart sound, S2 normal heart sound and no murmurs GI GI Narrative: abdomen distended, normal bowel sounds, not tympanitic to percussion Extremity normal to inspection, full ROM and no clubbing, cyanosis or edema Neuro oriented x3, CN's II-XII intact bilaterally, moves all extremities and no focal motor deficits Sensorium / Orientation: awake and alert Motor Exam: strength 5/5 throughout Psych affect normal Assessment & Plan Assessment/Plan (1) Post-op pain: (2) Declining functional status: (3) Constipation: PLAN: Plan #Constipation * patient complains of distended abdomen; he is passing gas * abdominal xray showed no obsruction or ileus. * will give a water enema to help with bowel movement * this has likely been exacerbated by pain meds he is on for back pain post op * #Back pain * Still having back pain. Had back surgery a few days ago. * constipation is also likely contributing to this * Pt/OT on board. Fall precautions. * continue current pain meds * MRI of the lumbar spine done showed s/p laminectomy, and fluid collection measuriing 6 x 4.5 x 2.2cm with gas within it in the deep subcutaneous tissues at the wound site. Discussed with Dr Jaimes, and doesnt think this is an abscess. * #Spinal stenosis s/p L4 laminectomy * had surgery on 11/08/2021 * MRI as above. * PT./OT on board. Fall precautions * #Debility and adult failure to thrive * PT OT on board. Fall precautions. Awaiting placement. * #CAD s/p stent: Plan #mild intermittent asthma: Breathing treatments with bronchodilators. #Hypertension: Continue current home meds-lisinopril DVT prophylaxis: SCDs Disposition: Awaiting placement. Charges/Coding Visit Charges Inpatient E&M: 02371 Subs Hosp L2
[2021-11-12 11:58] LABS: Pathologist Review Reviewed
[2021-11-12 12:01] LABS: Pathologist Review Reviewed
--- NOTE | 2021-11-12 12:48 | CON.PCM.OR_ITS ---
HPI Consult Data Date of Consult: 11/12/21 HPI Narrative HPI Narrative: The patient is a 56-year-old male who is a patient of mine who underwent an L4 laminectomy decompression on 11/08/2021. My staff followed up with him over the phone and he was unable to care for himself. He was instructed to come to the ER here for admission until he can be placed at a facility for nursing care and rehab. He is doing well. He is sitting up in a chair relaxing eating lunch. His pain is controlled. He has been up with physical therapy walking the halls without difficulty. He states that he has had some constipation. He also complains of some mild vague paresthesias and weakness in the right lower extremity globally. Otherwise he denies any other acute numbness tingling weakness or changes in bowel or bladder function. He denies any fever chills nausea vomiting or headache. [facility], [facility] Medical History Asthma Encounter for laboratory testing for COVID-19 virus Myocardial infarct MARGARITO (obstructive sleep apnea) Shingles Home Medications acetaminophen 300 mg-codeine 30 mg tablet 1 tab PO Q8H pain 11/09/21 [History Last Taken 11/08/21] albuterol sulfate 90 mcg/actuation aerosol inhaler (Ventolin HFA) 1 inh inhalation BID SOB 11/09/21 [History Last Taken 11/09/21] lisinopril 20 mg tablet 20 mg PO DAILY bp 11/09/21 [History Last Taken 11/09/21] mometasone-formoterol HFA 200 mcg-5 mcg/actuation aerosol inhaler (Dulera) 1 inh inhalation BID SOB 11/09/21 [History Last Taken 11/09/21] Allergy/AdvReac Type Severity Reaction Status Date / Time cabbage Allergy can not Verified 11/09/21 17:52 swallow lettuce Allergy can not Verified 11/09/21 17:52 swallow onion Allergy Vomiting Verified 11/09/21 17:52 Family History (Updated 11/09/21 @ 16:[address] Alfred Baptiste MD) Father No problems noted. Surgical History H/O hernia repair Stented coronary artery Social History Smoking Status: Former smoker Vital Signs Vital Signs Vital Signs: 11/11/21 13:41 11/11/21 14:00 11/11/21 14:18 Temperature 99.0 F Temperature Source Oral Pulse Rate 91 Pulse Strength Respiratory Rate 22 H 16 Respiratory Effort Respiratory Depth Normal Respiratory Pattern Blood Pressure 127/79 H Blood Pressure Mean 95 Blood Pressure Source Monitor Blood Pressure Position Semi-Fowlers Blood Pressure Location Left Arm Pulse Ox 90 90 Oxygen Delivery Method Room Air Room Air Oxygen Flow Rate (L/min) 11/11/21 20:00 11/11/21 20:44 11/11/21 20:00 Temperature 98.7 F Temperature Source Oral Pulse Rate 95 Pulse Strength Weak (1+) Respiratory Rate 18 Respiratory Effort Normal Non-Labored Respiratory Depth Normal Respiratory Pattern Normal Blood Pressure 143/90 H Blood Pressure Mean 107 Blood Pressure Source Monitor Blood Pressure Position Semi-Fowlers Blood Pressure Location Right Arm Pulse Ox 94 Oxygen Delivery Method CPAP CPAP Oxygen Flow Rate (L/min) 11/11/21 19:03 11/12/21 02:00 11/12/21 07:00 Temperature 97.9 F Temperature Source Oral Pulse Rate 88 72 88 Pulse Strength Respiratory Rate 20 H 18 22 H Respiratory Effort Respiratory Depth Respiratory Pattern Normal Irregular Blood Pressure 118/52 L Blood Pressure Mean 74 Blood Pressure Source Monitor Blood Pressure Position Semi-Fowlers Blood Pressure Location Right Arm Pulse Ox 95 Oxygen Delivery Method CPAP Oxygen Flow Rate (L/min) 11/12/21 07:00 11/12/21 08:00 11/12/21 09:29 Temperature 98.3 F Temperature Source Oral Pulse Rate 82 Pulse Strength Respiratory Rate 16 Respiratory Effort Respiratory Depth Respiratory Pattern Blood Pressure 101/69 Blood Pressure Mean 79 Blood Pressure Source Monitor Blood Pressure Position Sitting Blood Pressure Location Right Arm Pulse Ox 86 95 97 Oxygen Delivery Method Room Air Room Air Oxygen Flow Rate (L/min) 2 Weight Weight: 200 lb 1.606 oz Body Mass Index (BMI) 30.4 Physical Exam Const alert, oriented x3 and no apparent distress General Appearance: cooperative, comfortable and well kempt HEENT normocephalic and head/scalp atraumatic Eyes EOMs intact bilaterally and conjunctivae normal Neck full ROM General: normal visual inspection Chest inspection of chest normal and palpation of chest normal Resp normal respiratory effort and normal air movement Effort and Inspection: able to speak in complete sentences Cardio regular rate and peripheral pulses 2+ throughout GI soft to palpation, non-tender and non-distended Back/Spine Back/Spine Narrative: Dressing clean dry and intact. 2 inch midline vertical incision in the lumbar region is well approximated with interrupted sutures in place. No tenderness erythema drainage or fluctuance Cervical Spine: cervical ROM normal Thoracic Spine / Upper Back: normal to inspection Lumbar Spine / Lower Back: normal to inspection Extremity normal to inspection, full ROM, normal capillary refill, no clubbing, cyanosis or edema and no calf tenderness Skin no rashes or lesions noted General Skin Exam: no breakdown Neuro oriented x3, CN's II-XII intact bilaterally, moves all extremities, no focal motor deficits, no sensory deficits noted and deep tendon reflexes 2+ bilaterally Motor Exam: strength 5/5 throughout and muscle tone normal throughout Lab / Micro Data Result Diagrams: 11/10/21 06:19 11/10/21 06:19 Labs: Laboratory Results - last 24 hr 11/09/21 16:00: Diff Path Review Reviewed 11/10/21 06:19: Diff Path Review Reviewed Radiology Impression Abdomen X-Ray 11/11/21 16:48 IMPRESSION: No evidence of obstruction or ileus. Electronically Signed: Marcus Arellano, at 19:57 EDT , Assessment & Plan Assessment/Plan (1) Lumbar stenosis: PLAN: Plan I had a lengthy discussion with the patient. I did review his most recent lumbar MRI which I feel shows normal postsurgical changes. At this point I recommend pain control and mobilization as tolerated with discharge planning to a facility for nursing and rehab. He can follow-up with me in the clinic as scheduled for suture removal in 3 weeks. He understands and agrees with the treatment plan.
--- NOTE | 2021-11-12 13:25 | CASEMGMT ---
Addendum entered by Leila Chinchilla 11/12/21 14:46: [facility] is still looking at referral will keep following up. Leila Chinchilla Discharge Supervisor [employer] Original Note: Discharge Supervisor [employer] Leila called [facility]. Spoke to Daria. Referral was never received. Leila sent referral via email. Will follow up. Leila Chinchilla Discharge Supervisor [employer]
--- NOTE | 2021-11-12 15:45 | CASEMGMT ---
Discharge Clinical Sciences Professor Leila Limon/jeffrey Real Estate Listing Consultant reached out to Daria at [facility]. Patient has been accepted and pre-cert has been started. CASI Escalante notified. Plan: Waiting on pre-cert, accepted at [facility] Leila Chinchilla Discharge Clinical Sciences Professor
--- NOTE | 2021-11-12 15:49 | CASEMGMT ---
Social Work SW met with pt and introduced self and role of SW. Pt has requested to go to SNF and preferred provider is [facility]. SW spoke with pt regarding his home situation. Pt lives alone in a first floor apartment with no steps to enter. Pt states that he had surgery on 11/08 and was discharged home on same day. Pt states he was having trouble getting out of bed, completing toileting tasks, cannot change the dressing on his back and cannot cook or do laundry. Pt states he has no family to help him. He does have a friend Fritz Trujillo who offered to help, but Fritz just left for a two week vacation. Pt has a walker, high rise toilet with grab bars, and a walk in shower with grab bars. Pt denies having alternate discharge plan as he states he cannot care for himself. Pt does state he has a Resolute Professional at [facility] who was suppose to set up aids but this never happened. Referral to [facility] and they have accepted. Pt aware and is also notified that precert will need to be received from insurance prior to discharge. LO Ramsey
[2021-11-13 04:11] VITALS: BP 110/72; PULSE 72; RESP 16; TEMP 36.6; O2SAT 93
[2021-11-13] MEDS: 0.9% Saline Lock 10 ML Syringe IV (05:40)
[2021-11-13] MEDS: Ondansetron 4 MG/2 ML Vial IV (05:40)
[2021-11-13 06:34] LABS: Absolute Lymphocyte Count 1.31 X10^3/uL (0.83-4.51); Absolute Neutrophil Count 5.6 X10^3/uL (2.0-7.7); Basophil# 0.09 X10^3/uL; Eosinophil# 0.27 X10^3/uL; Eosinophils% 3.1 % (0-5); Hematocrit 43.5 % (40-54); Hemoglobin 13.8 g/dL (13.0-16.5); Lymphocyte # 1.31 X10^3/ul (0.83-4.51); Lymphocyte % 14.8 % (19-41); Mean Corp Hgb Conc 31.7 g/dL (32-36); Mean Corpuscular Hgb 29.9 pg (27.0-32.0); Mean Corpuscular Volume 94.4 fL (80-94); Monocyte# 1.59 X10^3/uL; NRBC Flagged by Analyzer 0 % (0-5); Neutrophil # 5.55 X10^3/uL (2.7-7.7); Neutrophil % 62.8 % (47-70); POSITIVE DIFFERENTIAL YES; Platelet Count 295 K/mm3 (150-450); RBC Distribution Width CV 13.6 % (11.6-14.6); RBC Distribution Width SD 47.3 fl (35.1-43.9); Red Blood Count 4.61 M/mm3 (4.6-6.2); White Blood Count 8.8 K/mm3 (4.4-11.0)
[2021-11-13 06:38] LABS: Differential Indicated SCAN CRITERIA MET
[2021-11-13 07:03] LABS: Differential Comment SCANNED
[2021-11-13 07:05] LABS: Anion Gap 6 (5-15); BUN 23 mg/dL (7-18); BUN/Creat Ratio 24.7 RATIO (10-20); Calcium,Total 8.8 mg/dL (8.5-10.1); Chloride 101 mmol/L (98-107); Creatinine, Serum 0.93 mg/dL (0.70-1.30); EST Glomerular Filtration Rate 89 mL/min (>60); Est Glom Filt Rate - Afr Amer 107 mL/min (>60); Estimated Creatinine Clearance 84.78 ml/min; Glucose 90 mg/dL (74-106); Potassium 4.3 mmol/L (3.5-5.1); Sodium Level 137 mmol/L (136-145)
[2021-11-13 07:15] VITALS: PULSE 89; RESP 20
[2021-11-13] MEDS: Budesonide Respules 0.5 MG/2 ML AMPUL.NEB. INHALATION (07:17)
[2021-11-13] MEDS: Albuterol 2.5 MG/3 ML VIAL.NEB. INHALATION ×2 (07:17→13:43)
[2021-11-13 08:41] VITALS: O2SAT 93
[2021-11-13 09:00] VITALS: BP 110/66; PULSE 70; RESP 16; TEMP 36.7; O2SAT 96
[2021-11-13] MEDS: Polyethylene Glycol 3350 17 GM PACKET PO (09:18)
[2021-11-13] MEDS: Lisinopril 20 MG Tablet PO (09:18)
--- NOTE | 2021-11-13 09:45 | CASEMGMT ---
Discharge Supervisor Partial Denture Department Leila D/jeffrey Active Directory Architect faxed over CASI Escalante note to [facility]. Leila Chinchilla Discharge Supervisor Partial Denture Department
--- NOTE | 2021-11-13 11:10 | PN.HOSP_ITS ---
Subjective Subjective Patient seen and examined. He had a bowel movement yesterday after hte enema; He still complains of constipation and says he feels he still needs to have more bowel movements. He still complains of back pain. Review of systems otherwise negative. Objective Data Objective Data Vital Signs: Vital Signs Temp Pulse Resp BP Pulse Ox O2 Del Method O2 Flow Rate 98.0 F 70 16 110/66 96 Room Air 2 11/13/21 09:00 11/13/21 09:00 11/13/21 09:00 11/13/21 09:00 11/13/21 09:00 11/13/21 09:00 11/13/21 08:41 FiO2 28 11/11/21 00:31 Oxygen Flow Rate (L/min) 2 Oxygen Delivery Method Room Air Weight: 200 lb 1.606 oz Body Mass Index (BMI) 30.4 Intake & Output: Intake and Output for Last 24 Hours 11/11/21 11/12/21 11/13/21 23:59 23:59 23:59 Intake Total 660 / 660 200 / 200 Output Total 1525 / 1975 950 / 950 450 / 450 Balance -865 / -1315 -750 / -750 -450 / -450 Lab / Micro Data Result Diagrams: 11/13/21 05:40 11/13/21 05:40 Labs: Laboratory Results - last 24 hr 11/09/21 16:00: Diff Path Review Reviewed 11/10/21 06:19: Diff Path Review Reviewed 11/13/21 05:40: WBC 8.8, RBC 4.61, Hgb 13.8, Hct 43.5, MCV 94.4 H, MCH 29.9, MCHC 31.7 L, RDW Std Deviation 47.3 H, RDW Coeff of Leticia 13.6, Plt Count 295, MPV 10.0, Immature Gran % (Auto) 0.300, Neut % (Auto) 62.8, Lymph % (Auto) 14.8 L, [place] % (Auto) 18.0 H, Eos % (Auto) 3.1, Baso % (Auto) 1.0, Absolute Neuts (auto) 5.6, Absolute Lymphs (auto) 1.31, Nucleated RBC % 0, Differential Comment SCANNED 11/13/21 05:40: Sodium 137, Potassium 4.3, Chloride 101, Carbon Dioxide 30.0, Anion Gap 6, BUN 23 H, Creatinine 0.93, Estim Creat Clear Calc 84.78, Est GFR (MDRD) Af Amer 107, Est GFR (MDRD) Non-Af 89, BUN/Creatinine Ratio 24.7 H, Glucose 90, Calcium 8.8 Physical Exam Const alert, oriented x3, no apparent distress and average body habitus HEENT head/scalp atraumatic, moist oral mucous membranes and oropharynx normal Eyes PERRL, EOMs intact bilaterally and conjunctivae normal Neck no lymphadenopathy, supple and no JVD Resp normal respiratory effort and no retractions Cardio regular rate, regular rhythm, S1 normal heart sound, S2 normal heart sound and no murmurs GI GI Narrative: abdomen still mildly distended, normal bowel sounds, not tympanitic to percussion Extremity normal to inspection, full ROM and no clubbing, cyanosis or edema Neuro oriented x3, CN's II-XII intact bilaterally, moves all extremities and no focal motor deficits Sensorium / Orientation: awake and alert Motor Exam: strength 5/5 throughout Psych affect normal Assessment & Plan Assessment/Plan (1) Post-op pain: (2) Declining functional status: (3) Constipation: PLAN: Plan #Constipation * had a bowel movement yesterday, though he still feels constipated. * will repeat tap enema today. * * #Back pain * Still having back pain. * PT/OT on board. Fall precautions. * continue current pain meds * MRI of the lumbar spine done showed s/p laminectomy, and fluid collection measuriing 6 x 4.5 x 2.2cm with gas within it in the deep subcutaneous tissues at the wound site. Discussed with Dr Jaimes, and doesnt think this is an abscess. * #Spinal stenosis s/p L4 laminectomy * had surgery on 11/08/2021 * MRI as above. * PT./OT on board. Fall precautions * #Debility and adult failure to thrive * PT OT on board. Fall precautions. Awaiting placement. * #CAD s/p stent: stable. #mild intermittent asthma: Breathing treatments with bronchodilators. #Hypertension: Continue current home meds-lisinopril DVT prophylaxis: SCDs Disposition: Awaiting placement. Charges/Coding Visit Charges Inpatient E&M: 87589 Subs Hosp L2
[2021-11-13 14:19] VITALS: PULSE 84; RESP 18
--- NOTE | 2021-11-13 14:48 | CASEMGMT ---
Discharge Painter And Paperhanger Apprentice Liborio reached out. Pre-cert has been obtained. CASI Roberto notified. Leila Chinchilla Discharge Painter And Paperhanger Apprentice
--- NOTE | 2021-11-13 15:14 | DS.PCM_ITS ---
Providers Date of Admission: 11/09/21 Date of Discharge: 11/13/21 Primary Care Physician: Rekha Lyons, LIBBY-Amita Consultations 11/09/21 17:31 Consult: Orthopedics Routine Consulting Provider: Imer Jaimes Reason for Consult: s/p back surgery EMERGENT Consult: No MD Notified: Yes Date Notified: 11/09/21 Time Notified: 16:09 Method of Notification: telephone Method of Consult:: In-Person Reason For Visit: POST-OP PAIN Diagnosis Discharge Diagnosis (1) Post-op pain: Status: Acute Code(s): G89.18 - Other acute postprocedural pain (2) Declining functional status: Status: Acute Code(s): R53.81 - Other malaise (3) Constipation: Status: Acute Code(s): K59.00 - Constipation, unspecified Plan #Constipation * had a bowel movement yesterday, though he still feels constipated. * will repeat tap enema today. * * #Back pain * Still having back pain. * PT/OT on board. Fall precautions. * continue current pain meds * MRI of the lumbar spine done showed s/p laminectomy, and fluid collection me asuriing 6 x 4.5 x 2.2cm with gas within it in the deep subcutaneous tissues at the wound site. Discussed with Dr Jaimes, and doesnt think this is an abscess. * #Spinal stenosis s/p L4 laminectomy * had surgery on 11/08/2021 * MRI as above. * PT./OT on board. Fall precautions * #Debility and adult failure to thrive * PT OT on board. Fall precautions. Awaiting placement. * #CAD s/p stent: stable. #mild intermittent asthma: Breathing treatments with bronchodilators. #Hypertension: Continue current home meds-lisinopril DVT prophylaxis: SCDs Disposition: Awaiting placement. Medications at Discharge Home Medications acetaminophen 300 mg-codeine 30 mg tablet 1 tab PO Q8H pain 11/09/21 albuterol sulfate 90 mcg/actuation aerosol inhaler (Ventolin HFA) 1 inh inhalation BID SOB 11/09/21 lisinopril 20 mg tablet 20 mg PO DAILY bp 11/09/21 mometasone-formoterol HFA 200 mcg-5 mcg/actuation aerosol inhaler (Dulera) 1 inh inhalation BID SOB 11/09/21 Hospital Course Operations None Procedures None Summary of Care Provided Minutes Spent on Discharge: 40 Hospital Course: Patient is a 56-year-old male with a past medical history as outlined was admitted through the ED on 11/09/2021 with a complaint of intractable back pain. He had undergone lumbar laminectomy at an outside hospital a day prior to admission. He was discharged home but could not carry out his activities of daily living due to severe pain and so came back to the ED. He was admitted to be managed for debility due to intractable back pain from lumbar laminectomy. Orthopedic surgery was consulted and patient had an MRI of the lumbar spine which showed s/p laminectomy, and fluid collection measuriing 6 x 4.5 x 2.2cm with gas within it in the deep subcutaneous tissues at the wound site. His orthopedic surgeon did not think that this fluid collection was concerning for abscess and thought was likely normal postoperative changes. Hospital course was complicated by constipation which was relieved by tapwater enema. Patient remained stable and was discharged on 11/13/2021 to a skilled rehab facility. He is follow-up with his primary care doctor and follow-up with orthopedic surgery. Patient was seen and examined prior to discharge. He had no active complaints and had an uneventful night. Review of systems otherwise negative. Labs and vitals reviewed. Home medication reviewed and reconciled. Physical Exam Const alert, oriented x3, no apparent distress and average body habitus General Appearance: cooperative, comfortable and well kempt Exam Limitations: no limitations HEENT normocephalic, head/scalp atraumatic, hearing grossly normal bilaterally, moist oral mucous membranes and oropharynx normal Eyes PERRL, EOMs intact bilaterally and conjunctivae normal Neck no lymphadenopathy, supple and no JVD Resp normal respiratory effort and no retractions Cardio regular rate, regular rhythm, S1 normal heart sound, S2 normal heart sound and no murmurs GI GI Narrative: abdomen still mildly distended, normal bowel sounds, not tympanitic to percussion Extremity normal to inspection, full ROM and no clubbing, cyanosis or edema Skin no rashes or lesions noted and no wounds Neuro oriented x3, CN's II-XII intact bilaterally, moves all extremities and no focal motor deficits Sensorium / Orientation: awake and alert Motor Exam: strength 5/5 throughout Psych affect normal Weight / BMI Weight Weight: 200 lb 1.606 oz Body Mass Index (BMI) 30.4 ABG / Lab / Microbiology Data Result Diagrams: 11/13/21 05:40 11/13/21 05:40 Laboratory: Laboratory Results - last 24 hr 11/13/21 05:40: WBC 8.8, RBC 4.61, Hgb 13.8, Hct 43.5, MCV 94.4 H, MCH 29.9, MCHC 31.7 L, RDW Std Deviation 47.3 H, RDW Coeff of Leticia 13.6, Plt Count 295, MPV 10.0, Immature Gran % (Auto) 0.300, Neut % (Auto) 62.8, Lymph % (Auto) 14.8 L, [place] % (Auto) 18.0 H, Eos % (Auto) 3.1, Baso % (Auto) 1.0, Absolute Neuts (auto) 5.6, Absolute Lymphs (auto) 1.31, Nucleated RBC % 0, Differential Comment SCANNED 11/13/21 05:40: Sodium 137, Potassium 4.3, Chloride 101, Carbon Dioxide 30.0, Anion Gap 6, BUN 23 H, Creatinine 0.93, Estim Creat Clear Calc 84.78, Est GFR (MDRD) Af Amer 107, Est GFR (MDRD) Non-Af 89, BUN/Creatinine Ratio 24.7 H, Glucose 90, Calcium 8.8 D/C Instructions Discharge Diet: Low fat / Low cholesterol Discharge Activity: Return to Normal Activity Weight Bearing Status: Weight bearing as tolerated Call your doctor if your incision/area has: Continuous Slow Oozing, Sudden Increased Bleeding, Increased Pain/ Swelling, Increased Redness, Foul Smelling Discharge and Swelling at the incision site Call your doctor if you observe: Fever of 101 or Higher, Shortness of breath, Swelling in the ankles and Uncontrolled pain Meaningful Use Info Meaningful Use Diagnoses (Choose all that apply): None applicable Discharge Plan Admission Admit Date/Time: 11/09/21 16:03 Primary Reason for Your Visit: intractable back pain Attending Provider: Oyla Soliz Primary Care Provider: Rekha Lyons NP Consulting Providers: Imer Jaimes ; Alfred Baptiste Instructions Patient Instructions: Back Health After Surgery Discharge Orders/Prescriptions Prescriptions: Continued lisinopril 20 mg tablet 20 mg PO DAILY acetaminophen-codeine 300-30 mg tablet 1 tab PO Q8H Label Comments: take 1 tablet by mouth every 8 hours if needed for pain for 7 days albuterol sulfate [Ventolin HFA] 90 mcg/actuation HFA aerosol inhaler 1 inh INHALATION BID Dulera 200-5 mcg/actuation HFA aerosol inhaler 1 inh INHALATION BID Referrals / Follow Up: Imer Jaimes DO [STAFF PHYSICIAN] - Within 1 Week Rekha Lyons NP, NET DEVELOPMENT MANAGER-C [Primary Care Provider] - Within 2 Weeks Disposition Disposition (needs filled in before D/C Order can be placed): [facility] Facility Charges/Coding Visit Charges OBSV E&M: 69746 Observation care discharge
--- NOTE | 2021-11-13 15:19 | CASEMGMT ---
SW completed PASRR and submitted. [employer] Re[employer] Engineer to set up transport. D/c urban planning professor Leila spoke with family and patient. They are aware patient was approved and will go today. Plan: d/c to [place] under intermediate level of care on a PASRR as patient is observation status. [employer] Re[employer] Engineer is setting up transport. Felisa Stokes FEATHER DUSTER WINDER RONNELL
--- NOTE | 2021-11-13 15:21 | CASEMGMT ---
SW completed PASRR and submitted. Rough And Trueing Machine Operator to set up transport. SW spoke with patient and let him know he was approved to go to [facility] and he will go today. They are aware patient was approved and will go today. Plan: d/c to [facility] under intermediate level of care on a PASRR as patient is observation status. Rough And Trueing Machine Operator is setting up transport. Felisa REYNAGA
--- NOTE | 2021-11-13 15:22 | TREXTCAR_ITS ---
Diet Diet Order/Speech Therapy: 11/13/21 08:37 Diet: Cardiac - Heart Healthy Type of Dietary Supplement:: [place] Breakfast Is pt able to select menu?: Yes Routine Orders/Code Status Enema Type: Fleetz Enema Frequency: Daily PRN Suppository Type: Dulcolax 10mg Suppository Frequency: Daily PRN Wound(s) LOWER BACK: Wound Type: Surgical Incision Therapies Weight Bearing: Weight bearing as tolerated Physical Therapy: Eval and Treat Occupational Therapy: Eval and Treat Problem/Diagnosis (1) Post-op pain: Status: Acute Code(s): G89.18 - Other acute postprocedural pain (2) Declining functional status: Status: Acute Code(s): R53.81 - Other malaise (3) Constipation: Status: Acute Code(s): K59.00 - Constipation, unspecified Plan #Constipation * had a bowel movement yesterday, though he still feels constipated. * will repeat tap enema today. * * #Back pain * Still having back pain. * PT/OT on board. Fall precautions. * continue current pain meds * MRI of the lumbar spine done showed s/p laminectomy, and fluid collection measuriing 6 x 4.5 x 2.2cm with gas within it in the deep subcutaneous tissues at the wound site. Discussed with Dr Jaimes, and doesnt think this is an abscess. * #Spinal stenosis s/p L4 laminectomy * had surgery on 11/08/2021 * MRI as above. * PT./OT on board. Fall precautions * #Debility and adult failure to thrive * PT OT on board. Fall precautions. Awaiting placement. * #CAD s/p stent: stable. #mild intermittent asthma: Breathing treatments with bronchodilators. #Hypertension: Continue current home meds-lisinopril DVT prophylaxis: SCDs Disposition: Awaiting placement. Allergies/Procedures Done in Hospital Allergies cabbage Allergy (Verified 11/09/21 17:52) can not swallow lettuce Allergy (Verified 11/09/21 17:52) can not swallow onion Allergy (Verified 11/09/21 17:52) Vomiting Procedures: None Type of Care/Length of Stay Estimated LOS: Convalescent Care Less Than 30 days Type of Care Needed: Skilled Rehab Potential: Good Prognosis: Good Additional Orders/Day of Discharge Day of Discharge: 11/13/21 Dietary and Speech Recommendations Dietitian Recommendations/Changes: continue regular diet; will provide carnation instant breakfast w/ meals for additional protein if consumed. Discharge Plan Admission Admit Date/Time: 11/09/21 16:03 Primary Reason for Your Visit: intractable back pain Attending Provider: Olya Soliz Primary Care Provider: Rekha Lyons NP Consulting Providers: Imer Jaimes ; Alfred Baptiste Instructions Patient Instructions: Back Health After Surgery Discharge Orders/Prescriptions Prescriptions: Continued lisinopril 20 mg tablet 20 mg PO DAILY acetaminophen-codeine 300-30 mg tablet 1 tab PO Q8H Label Comments: take 1 tablet by mouth every 8 hours if needed for pain for 7 days albuterol sulfate [Ventolin HFA] 90 mcg/actuation HFA aerosol inhaler 1 inh INHALATION BID Dulera 200-5 mcg/actuation HFA aerosol inhaler 1 inh INHALATION BID Referrals / Follow Up: Imer Jaimes DO [STAFF PHYSICIAN] - Within 1 Week Rekha Lyons NP, OPERATIONS SUPPORT SPECIALIST-C [Primary Care Provider] - Within 2 Weeks Disposition Disposition (needs filled in before D/C Order can be placed): Group Home Facility
[2021-11-13 16:15] VITALS: BP 112/67; PULSE 81; RESP 16; TEMP 36.7; O2SAT 93
== END 2021-11-13 19:00 ==
LOC: ED 15:47 → MS3 16:28
PROVIDERS: Admitting Provider Internal Medicine; Emergency Provider Emergency Medicine; PCP Nurse Practitioner Family; Visit Provider Student in an Organized Health Care Education/Training Program
DX: G89.18 Other acute postprocedural pain (principal); J44.9 Chronic obstructive pulmonary disease, unspecified; M48.061 Spinal stenosis, lumbar region without neurogenic claudication; R62.7 Adult failure to thrive; K59.00 Constipation, unspecified; R53.81 Other malaise; Z79.51 Long term (current) use of inhaled steroids; I25.2 Old myocardial infarction; G47.33 Obstructive sleep apnea (adult) (pediatric); Z79.899 Other long term (current) drug therapy; Z79.52 Long term (current) use of systemic steroids; Z87.891 Personal history of nicotine dependence; E66.9 Obesity, unspecified; Z68.31 Body mass index [BMI] 31.0-31.9, adult; I25.10 Atherosclerotic heart disease of native coronary artery without angina pectoris
CPT/HCPCS: 36415; 72148; 74019; 80048; 85025; 87811; 94002; 94003; 94640; 94762; 96372; 96374; 96375; 96376; 97110; 97116; 97162; 97166; 97530; 97535; 97802; 99218; 99251; 99284; J7050; A4216; G0378; G0463; J2405

== ENCOUNTER 2022-02-18 13:48 | Emergency (ER) | payer MEDICAID, SELFPAY ==
[2022-02-18 13:49] VITALS: BP 187/132; PULSE 73; RESP 16; TEMP 36.4; O2SAT 92; BMI 33.3
--- NOTE | 2022-02-18 14:37 | RAD_ITS ---
STUDY: X-RAY CHEST REASON FOR EXAM: Male, 56 years old. Cough TECHNIQUE: Single AP portable view of the chest. COMPARISON: None. FINDINGS: EKG electrodes are seen. Hyperinflation. Partially calcified granuloma in the left lower lobe. There is no demonstrated pleural abnormality. Normal size heart. Normal mediastinum and joseph. Normal visualized pulmonary arteries. Normal visualized aortic arch and descending thoracic aorta. There are diffuse degenerative changes of the visualized thoracic spine. Normal visualized ribs, clavicles, and shoulders. There is no demonstrated abnormality of the visualized soft tissue structures of the upper abdomen. RAD/Chest 1 View (Portable) IMPRESSION: Hyperinflation. No acute abnormality is seen. Electronically Signed: Vladislav Mix MD at 15:11 EDT ,
--- NOTE | 2022-02-18 14:38 | EKG12_ITS ---
Test Reason : SOB Blood Pressure : / mmHG Vent. Rate : 070 BPM Atrial Rate : 070 BPM P-R Int : 152 ms QRS Dur : 094 ms QT Int : 380 ms P-R-T Axes : -04 077 049 degrees QTc Int : 410 ms Normal sinus rhythm Incomplete right bundle branch block Borderline ECG No previous ECGs available Confirmed by BAKARI FERRERA, JANEY ([id number]), newspaper editor WIN ARZATE ([id number]) on 02/22/2022 2:42:23 P M Referred By: Confirmed By:DANIEL VILLEGAS MD
--- NOTE | 2022-02-18 14:39 | EX.ED.VIS.UR ---
HPI HPI - URI History of Present Illness Chief Complaint: Shortness of Breath Informant: patient Narrative Narrative: Patient presents with about 2 or 3 days of cough variously productive of yellow-green white sputum other times no sputum. No real change in his wheezing. He has had fevers but has not measured it. He does live in a building where at least 1 person has COVID but he does not know who it is so he does not know how close he has been to them. He has had COVID immunizations. He states he has had some posttussive emesis but is not actually nauseated. He is not having chest pain. He does have some slight myalgias mostly in shoulders and lower back. He also has sore throat and nasal congestion. Nothing specifically makes this better or worse. He also does have high blood pressure I note his blood pressure is up today. He states he did not take his meds because he was not sure if he should take them when he was sick. I encouraged him to use his meds routinely. ROS ROS ED Constitutional Constitutional ED: Reports chills, fever(s) and subjective Eyes Eyes: Denies change in vision ENT ENT ED: Reports rhinorrhea and sore throat Cardiovascular Cardiovascular: Denies chest pain, palpitations or racing heartbeat Respiratory/Chest Respiratory/Chest: Reports cough and sputum; Denies dyspnea Gastrointestinal Gastrointestinal: Reports nausea, vomiting and other Details: Posttussive vomiting ; Denies abdominal pain or diarrhea Genitourinary Genitourinary ED: Denies hematuria Musculoskeletal Musculoskeletal: Reports myalgias Integumentary Denies rash Neurologic Neurologic: Denies headache(s) Endocrine Endocrinology: Denies polydipsia or polyuria Hematologic/Lymphatic Hematologic/Lymphatic: Reports other Details: Patient states he does take aspirin or is at least supposed to. Then he states he is taking it regularly. ; Denies easy bleeding, easy bruising or lymphadenopathy Allergic/Immunologic Allergic/Immunologic ED: Denies urticaria PFSH PFS Medical History Asthma Declining functional status Encounter for laboratory testing for COVID-19 virus Lumbar stenosis Myocardial infarct MARGARITO (obstructive sleep apnea) Post-op pain Shingles Home Medications albuterol sulfate 90 mcg/actuation aerosol inhaler (Ventolin HFA) 1 inh inhalation BID SOB 11/09/21 [History Last Taken 11/09/21] lisinopril 20 mg tablet 20 mg PO DAILY bp 11/09/21 [History Last Taken 11/09/21] mometasone-formoterol HFA 200 mcg-5 mcg/actuation aerosol inhaler (Dulera) 1 inh inhalation BID SOB 11/09/21 [History Last Taken 11/09/21] acetaminophen 300 mg-codeine 30 mg tablet 1 tab PO Q8H PRN Pain level 4-10 #6 tabs 11/13/21 [Rx Last Taken Unknown] acetaminophen 300 mg-codeine 30 mg tablet 1 tab PO Q8H pain 2 days #6 tabs 11/13/21 [Rx Last Taken 11/08/21] Allergy/AdvReac Type Severity Reaction Status Date / Time cabbage Allergy can not Verified 02/18/22 13:51 swallow lettuce Allergy can not Verified 02/18/22 13:51 swallow onion Allergy Vomiting Verified 02/18/22 13:51 Family History Father No problems noted. Surgical History H/O hernia repair Stented coronary artery Social History Smoking Status: Former smoker EXAM Physical Exam Const Vital Signs: 02/18/22 13:49 02/18/22 13:48 02/18/22 15:28 Temperature 97.6 F L Temperature Source Temporal Pulse Rate 73 Respiratory Rate 16 Respiratory Effort Short of Breath Respiratory Depth Normal Respiratory Pattern Normal Blood Pressure 187/132 H 122/81 H Blood Pressure Mean 150 94 Pulse Ox 92 Oxygen Delivery Method Room Air Room Air 02/18/22 15:28 Temperature Temperature Source Pulse Rate 68 Respiratory Rate 20 H Respiratory Effort Respiratory Depth Respiratory Pattern Blood Pressure 122/81 H Blood Pressure Mean 94 Pulse Ox 96 Oxygen Delivery Method Room Air Positive well nourished and well developed General Appearance ED: well developed; Negative for pallor HEENT Reports moist mucous membranes HEENT Narrative: Minimal erythema of the throat but no exudate or swelling. Face and Sinus: Negative for sinus tenderness Neck supple and no JVD Neck Narrative: No stridor. Resp normal respiratory effort Effort and Inspection: Negative for retractions or pain with movement Auscultation: Negative for rales, rhonchi or wheezes Cardio S1 normal heart sound and S2 normal heart sound Rate: Negative for tachycardic GI non-tender and non-distended Palpation: soft Back/Spine no CVA tenderness Extremity normal to inspection and full ROM General Extremety ED: Negative for tenderness Neuro Sensorium / Orientation: alert Psych mental status grossly normal Skin General Skin Exam: Negative for pallor MDM MDM MDM Narrative Medical decision making narrative: Chest x-ray shows no acute process. CBC is overall normal other than minimal nonspecific elevation of white count. Electrolytes look good. COVID is also negative as is influenza. Patient will go home. He has reading treatments at home. His blood pressure is down now when it was rechecked. He also stated he wanted to be checked for STDs. He has no symptoms whatsoever. He just wants to make sure that he does not have 1. I stated we would send this off but the result will not come back during the stay. Lab Data Attestation: I reviewed the patient's lab results. Labs: Laboratory Results - last 24 hr 02/18/22 02/18/22 14:45 14:45 WBC 11.8 H RBC 4.77 Hgb 14.3 Hct 46.0 MCV 96.4 H MCH 30.0 MCHC 31.1 L RDW Std Deviation 47.0 H RDW Coeff of Leticia 13.2 Plt Count 284 MPV 10.0 Immature Gran % (Auto) 0.300 Neut % (Auto) 72.0 H Lymph % (Auto) 11.4 L [place] % (Auto) 14.1 H Eos % (Auto) 1.4 Baso % (Auto) 0.8 Absolute Neuts (auto) 8.5 H Absolute Lymphs (auto) 1.34 Nucleated RBC % 0 Differential Comment SCANNED Diff Path Review May foll Sodium 143 Potassium 4.3 Chloride 109 H Carbon Dioxide 29.0 Anion Gap 5 BUN 16 Creatinine 1.00 Estim Creat Clear Calc 78.85 Est GFR (MDRD) Af Amer 99 Est GFR (MDRD) Non-Af 82 BUN/Creatinine Ratio 16.0 Glucose 108 H Calcium 9.4 Radiography Diagnostic Testing: Clinical Impression(s) from Imaging Studies Chest X-Ray 02/18/22 14:37 IMPRESSION: Hyperinflation. No acute abnormality is seen. Electronically Signed: Vladislav Mix MD at 15:11 EDT , Chest x-ray shows mild hyper inflation but no acute process Discharge Plan Triage Chief Complaint: Shortness of Breath ED Provider: Kenneth Zaragoza Dx/Rx/DC Orders Clinical Impression: Viral URI with cough Instructions: ED URI, Viral, No Abx (Adult) Prescriptions: No Action lisinopril 20 mg tablet 20 mg PO DAILY albuterol sulfate [Ventolin HFA] 90 mcg/actuation HFA aerosol inhaler 1 inh INHALATION BID Dulera 200-5 mcg/actuation HFA aerosol inhaler 1 inh INHALATION BID acetaminophen-codeine 300-30 mg Tablet 1 tab PO Q8H PRN (Reason: Pain level 4-10) Qty: 6 0RF acetaminophen-codeine 300-30 mg tablet 1 tab PO Q8H 2 Days Qty: 6 0RF Label Comments: take 1 tablet by mouth every 8 hours if needed for pain for 7 days Primary Care Provider: Rekha Lyons NP Referrals: Rekha Lyons NP, FINANCIAL REPORTING ADVISOR-C [Primary Care Provider] - 3-5 Days if not improving
[2022-02-18 14:59] LABS: Absolute Lymphocyte Count 1.34 X10^3/uL (0.83-4.51); Absolute Neutrophil Count 8.5 X10^3/uL (2.0-7.7); Basophil# 0.09 X10^3/uL; Basophil% 0.8 % (0-1); Eosinophil# 0.16 X10^3/uL; Eosinophils% 1.4 % (0-5); Hemoglobin 14.3 g/dL (13.0-16.5); Lymphocyte # 1.34 X10^3/ul (0.83-4.51); Lymphocyte % 11.4 % (19-41); Mean Corp Hgb Conc 31.1 g/dL (32-36); Mean Corpuscular Volume 96.4 fL (80-94); Monocyte# 1.66 X10^3/uL; Monocyte% 14.1 % (0-10); NRBC Flagged by Analyzer 0 % (0-5); Neutrophil # 8.51 X10^3/uL (2.7-7.7); POSITIVE DIFFERENTIAL YES; Platelet Count 284 K/mm3 (150-450); RBC Distribution Width CV 13.2 % (11.6-14.6); Red Blood Count 4.77 M/mm3 (4.6-6.2); White Blood Count 11.8 K/mm3 (4.4-11.0)
[2022-02-18 15:10] LABS: Differential Indicated SCAN CRITERIA MET
[2022-02-18 15:14] LABS: Anion Gap 5 (5-15); BUN 16 mg/dL (7-18); Calcium,Total 9.4 mg/dL (8.5-10.1); Chloride 109 mmol/L (98-107); EST Glomerular Filtration Rate 82 mL/min (>60); Est Glom Filt Rate - Afr Amer 99 mL/min (>60); Estimated Creatinine Clearance 78.85 ml/min; Glucose 108 mg/dL (74-106); Potassium 4.3 mmol/L (3.5-5.1); Sodium Level 143 mmol/L (136-145)
[2022-02-18 15:28] VITALS: BP 122/81; PULSE 68; RESP 20; O2SAT 96
[2022-02-18 15:28] LABS: Differential Comment SCANNED
[2022-02-18 16:42] VITALS: RESP 16
[2022-02-18 18:39] LABS: Chlamydia Trachomatis by PCR Negative (Negative); Neisserai gonorrhoeae by PCR Negative (Negative); Probe Check PASS; Sample Adequacy Control PASS; Specimen Processing Control PASS
[2022-02-19 15:13] LABS: Pathologist Review Reviewed
== END 2022-02-18 16:42 | disposition home or self-care (01) ==
PROVIDERS: Emergency Provider Emergency Medicine; PCP Nurse Practitioner Family; Visit Provider Emergency Medicine
DX: J06.9 Acute upper respiratory infection, unspecified (principal); G47.33 Obstructive sleep apnea (adult) (pediatric); Z87.891 Personal history of nicotine dependence
CPT/HCPCS: 71045; 80048; 85025; 87428; 87491; 87591; 93005; 99283; A4216

== ENCOUNTER 2022-04-12 13:04 | Emergency (ER) | payer MEDICAID, SELFPAY ==
[2022-04-12 13:06] VITALS: BP 126/73; PULSE 60; RESP 18; TEMP 36.6; O2SAT 94; BMI 25.5
--- NOTE | 2022-04-12 13:11 | RAD_ITS ---
STUDY: X-RAY CHEST REASON FOR EXAM: Male, 56 years old. Pneumonia. Cough TECHNIQUE: PA and lateral views of the chest. COMPARISON: Comparison is made with prior study 02/18/2022. FINDINGS: Hyperinflation. The lungs are clear. Scattered calcified granulomas. There is no demonstrated pleural abnormality. Normal size heart. Normal mediastinum and joseph. Normal visualized pulmonary arteries. Normal visualized aortic arch and descending thoracic aorta. Normal visualized thoracic spine. Normal visualized ribs, clavicles, and shoulders. There is no demonstrated abnormality of the visualized soft tissue structures of the upper abdomen. RAD/Chest PA and Lateral IMPRESSION: Hyperinflation. The lungs are clear. Electronically Signed: Vladislav Mix MD at 14:08 EST ,
--- NOTE | 2022-04-12 15:33 | EDS_ITS ---
HPI History of Present Illness Chief Complaint: Cough Informant: patient Narrative Narrative: Brought by EMS for evaluation worsening dyspnea and wheeze today. History of asthma COPD sleep apnea wears CPAP with oxygen at night. 5 days ago symptomatic cough sputum fevers headache myalgias. Saw his PCP 2 days ago clinically diagnosed with pneumonia placed on antibiotics and steroids and additional medicines that he cannot recall. He has inhaler and nebulizer at home. Has been using this. Today walked down the [place] got short of breath and was brought to ED by EMS. Is been in the waiting room noted for 2 hours due to busy department. Prior similar symptoms: Yes PFSH PFS Medical History Asthma Declining functional status Encounter for laboratory testing for COVID-19 virus Lumbar stenosis Myocardial infarct MARGARITO (obstructive sleep apnea) Post-op pain Shingles Home Medications albuterol sulfate 90 mcg/actuation aerosol inhaler (Ventolin HFA) 1 inh inhalation BID SOB 11/09/21 [History Last Taken 11/09/21] lisinopril 20 mg tablet 20 mg PO DAILY bp 11/09/21 [History Last Taken 11/09/21] mometasone-formoterol HFA 200 mcg-5 mcg/actuation aerosol inhaler (Dulera) 1 inh inhalation BID SOB 11/09/21 [History Last Taken 11/09/21] acetaminophen 300 mg-codeine 30 mg tablet 1 tab PO Q8H PRN Pain level 4-10 #6 tabs 11/13/21 [Rx Last Taken Unknown] acetaminophen 300 mg-codeine 30 mg tablet 1 tab PO Q8H pain 2 days #6 tabs 11/13/21 [Rx Last Taken 11/08/21] aspirin 81 mg tablet,delayed release 81 mg DAILY 04/12/22 [History Last Taken Unknown] atorvastatin 80 mg tablet 80 mg PO QHS 04/12/22 [History Last Taken Unknown] clopidogrel 75 mg tablet 75 mg PO DAILY 04/12/22 [History Last Taken Unknown] metoprolol tartrate 25 mg tablet 25 mg PO DAILY 04/12/22 [History Last Taken Unknown] Allergy/AdvReac Type Severity Reaction Status Date / Time cabbage Allergy can not Verified 04/12/22 13:05 swallow lettuce Allergy can not Verified 04/12/22 13:05 swallow onion Allergy Vomiting Verified 04/12/22 13:05 Family History Father No problems noted. Surgical History H/O hernia repair Stented coronary artery Social History Smoking Status: Former smoker ROS ROS ED Constitutional Constitutional ED: Reports chills and fever(s); Denies sweats Eyes Eyes: Denies change in vision ENT ENT ED: Denies dysphagia or sore throat Cardiovascular Cardiovascular: Denies chest pain, leg edema, palpitations or racing heartbeat Respiratory/Chest Respiratory/Chest: Reports cough, dyspnea and dyspnea on exertion Gastrointestinal Gastrointestinal: Denies abdominal pain, diarrhea, nausea or vomiting Genitourinary Genitourinary ED: Denies dysuria, hematuria or urinary frequency Musculoskeletal Musculoskeletal: Denies back pain, extremity pain or neck pain Integumentary Denies rash or wounds Neurologic Neurologic: Denies headache(s), paresthesias or weakness EXAM Physical Exam Const Vital Signs: 04/12/22 13:06 04/12/22 15:52 04/12/22 16:08 Temperature 97.8 F Temperature Source Temporal Pulse Rate 60 66 Respiratory Rate 18 20 H Respiratory Effort Short of Breath Respiratory Depth Normal Respiratory Pattern Normal Normal Blood Pressure 126/73 H Blood Pressure Mean 90 Pulse Ox 94 Oxygen Delivery Method Room Air Room Air 04/12/22 16:09 Temperature Temperature Source Pulse Rate 65 Respiratory Rate 18 Respiratory Effort Respiratory Depth Respiratory Pattern Blood Pressure 101/67 Blood Pressure Mean 78 Pulse Ox 93 Oxygen Delivery Method Room Air Positive well nourished and well developed General Appearance ED: well developed and NAD HEENT Reports moist mucous membranes normocephalic and atraumatic Eyes PERRL, EOMs intact bilaterally and conjunctivae normal General Eye ED: Yes normal appearance of both eyes Neck no lymphadenopathy and supple General: Negative for tenderness Chest Wall Chest: Negative for tenderness Resp Resp Narrative: Diminished breath sounds in the bases no active wheezing, no retractions. Effort and Inspection: symmetric chest movement; Negative for respiratory distress Cardio regular rate, regular rhythm and no murmurs Peripheral Pulses: pulses 2+ throughout GI normal to inspection, nondistended, normoactive bowel sounds and non-tender Palpation: Negative for guarding or rebound tenderness present Back/Spine no CVA tenderness and no thoracic nor lumbar tenderness Extremity normal to inspection General Extremety ED: Negative for edema or tenderness General Extremity: Negative for edema Neuro oriented x3 and no sensory deficits noted Sensorium / Orientation: awake and alert Skin no rashes or lesions noted and no wounds MDM MDM MDM Narrative Medical decision making narrative: Patient vital stable on arrival 94 in room air slight diminished breath sounds at bases. Clinical history possible concerns for influenza discussed this with the patient with viral syndrome he reports underlying COPD with asthma probably treated by his PCP steroids antibiotics as an outpatient. I discussed likely viral syndrome at this time. With him waiting 2 half hours with minutes sounds, will give a breathing treatment. Will reevaluate and ambulate with a pulse ox for disposition. Patient ambulated per nursing slight shortness of breath pulse ox maintained 91%. This not below 88. Discussed patient extending his treatment at home finishing his steroids and antibiotics. Adjunct therapy treatment discussed. Return precautions. All questions were answered. Radiography Diagnostic Testing: Clinical Impression(s) from Imaging Studies Chest X-Ray 04/12/22 13:11 IMPRESSION: Hyperinflation. The lungs are clear. Electronically Signed: Vladislav Mix MD at 14:08 EST , Discharge Plan Triage Chief Complaint: Cough Other Complaint: Fever Shortness of Breath ED Provider: Lance Prado Dx/Rx/DC Orders Clinical Impression: Viral illness, COPD (chronic obstructive pulmonary disease) Instructions: Asthma and COPD, Asthma COPD Trigger Control, ED Viral Syndrome (Adult) Prescriptions: No Action lisinopril 20 mg tablet 20 mg PO DAILY albuterol sulfate [Ventolin HFA] 90 mcg/actuation HFA aerosol inhaler 1 inh INHALATION BID Dulera 200-5 mcg/actuation HFA aerosol inhaler 1 inh INHALATION BID acetaminophen-codeine 300-30 mg Tablet 1 tab PO Q8H PRN (Reason: Pain level 4-10) Qty: 6 0RF acetaminophen-codeine 300-30 mg tablet 1 tab PO Q8H 2 Days Qty: 6 0RF Label Comments: take 1 tablet by mouth every 8 hours if needed for pain for 7 days atorvastatin 80 mg tablet 80 mg PO QHS Label Comments: TAKE 1 TABLET BY MOUTH AT BEDTIME clopidogrel 75 mg tablet 75 mg PO DAILY Label Comments: TAKE 1 TABLET BY MOUTH ONCE DAILY aspirin 81 mg tablet,delayed release (DR/EC) 81 mg DAILY Label Comments: TAKE 1 TABLET BY MOUTH DAILY metoprolol tartrate 25 mg tablet 25 mg PO DAILY Label Comments: TAKE 1 TABLET BY MOUTH TWICE DAILY Primary Care Provider: Rekha Lyons NP Referrals: Rekha Lyons NP, [employer] [Primary Care Provider] - 3-5 Days if not improving Activity Restrictions/Additional Instructions: Finish your antibiotic and steroids provided by your doctor. Continue inhaler treatments at home. May add humidifier vapor rubs to help with cough symptoms. Follow-up with your doctor return if any worsening symptoms. Disposition Disposition: Home, Self Care
[2022-04-12] MEDS: Ipratropium/Albuterol Sulfate 3 ML AMPUL.NEB INHALATION (15:51)
[2022-04-12 15:52] VITALS: PULSE 66; RESP 20
[2022-04-12 16:08] VITALS: O2SAT 92
[2022-04-12 16:09] VITALS: BP 101/67; PULSE 65; RESP 18; O2SAT 93
[2022-04-12 16:14] VITALS: O2SAT 93
== END 2022-04-12 16:36 | disposition home or self-care (01) ==
PROVIDERS: Emergency Provider Emergency Medicine; PCP Nurse Practitioner Family; Visit Provider Emergency Medicine
DX: B34.9 Viral infection, unspecified (principal); J44.9 Chronic obstructive pulmonary disease, unspecified; G47.33 Obstructive sleep apnea (adult) (pediatric); Z79.82 Long term (current) use of aspirin; Z79.02 Long term (current) use of antithrombotics/antiplatelets; Z79.899 Other long term (current) drug therapy; Z87.891 Personal history of nicotine dependence
CPT/HCPCS: 71046; 94640; 99284

== ENCOUNTER 2022-06-15 19:47 | Emergency (ER) | payer MEDICAID, SELFPAY ==
[2022-06-15 19:48] VITALS: BP 157/92; PULSE 58; RESP 16; TEMP 36.4; O2SAT 99; BMI 32.3
[2022-06-15 20:09] VITALS: BP 156/83; PULSE 55; RESP 18; O2SAT 96
--- NOTE | 2022-06-15 20:11 | ED.RN ---
PT REPORTS HE HAD A BOWEL MOVEMENT TODAY. PT REPORTS STOOL WAS HARD. PT WAS ABLE TO PASS HARD STOOL AND THEN HAD BRIGHT RED BLOOD AFTER BOWEL MOVEMENT. PT STATES HE THINKS ITS THE HEMORRHOIDS.
[2022-06-15 21:20] LABS: Absolute Neutrophil Count 5.1 X10^3/uL (2.0-7.7); Basophil# 0.11 X10^3/uL; Basophil% 1.2 % (0-1); Eosinophil# 0.31 X10^3/uL; Eosinophils% 3.5 % (0-5); Hematocrit 46.2 % (40-54); Lymphocyte % 23.6 % (19-41); Mean Corp Hgb Conc 30.3 g/dL (32-36); Mean Corpuscular Hgb 30.2 pg (27.0-32.0); Mean Corpuscular Volume 99.8 fL (80-94); Mean Platelet Vol. 10.1 fl (6.2-12.0); Monocyte# 1.26 X10^3/uL; Monocyte% 14.2 % (0-10); NRBC Flagged by Analyzer 0 % (0-5); Neutrophil # 5.09 X10^3/uL (2.7-7.7); Neutrophil % 57.2 % (47-70); Platelet Count 283 K/mm3 (150-450); RBC Distribution Width CV 13.9 % (11.6-14.6); RBC Distribution Width SD 50.4 fl (35.1-43.9); Red Blood Count 4.63 M/mm3 (4.6-6.2); White Blood Count 8.9 K/mm3 (4.4-11.0)
[2022-06-15 21:33] LABS: Prothrombin Time (Protime)PT. 13.1 SECONDS (11.7-14.9)
[2022-06-15 21:34] LABS: Partial Thromboplast Time 27.8 Seconds (24.1-36.2)
[2022-06-15 21:41] LABS: ALB/GLOB Ratio 0.9 RATIO (0.9-2.4); AST(SGOT) 17 U/L (15-37); Alanine Aminotransfer ALT/SGPT 32 U/L (16-61); Albumin, Serum 3.4 g/dL (3.2-5.0); Alkaline Phosphatase 147 U/L (45-117); Anion Gap 4 (5-15); BUN 15 mg/dL (7-18); BUN/Creat Ratio 15.1 RATIO (10-20); Calcium,Total 9.2 mg/dL (8.5-10.1); Chloride 106 mmol/L (98-107); Creatinine, Serum 0.99 mg/dL (0.70-1.30); EST Glomerular Filtration Rate 82 mL/min (>60); Est Glom Filt Rate - Afr Amer 100 mL/min (>60); Estimated Creatinine Clearance 76.97 ml/min; Globulin 3.7 g/dL (2.2-4.2); Glucose 84 mg/dL (74-106); Potassium 4.1 mmol/L (3.5-5.1); Protein, Total 7.1 g/dL (6.4-8.2); Sodium Level 143 mmol/L (136-145)
--- NOTE | 2022-06-15 21:41 | EDS_ITS ---
HPI HPI - GI History of Present Illness Chief Complaint: GI Bleed Informant: patient Abdominal Pain/Flank Pain Worsened by: Nothing Relieved by: Nothing Nausea/Vomiting/Emesis GI Symptom: Negative for Nausea or Vomiting Diarrhea/Melena/Hematochezia GI Symptom: Positive for Hematochezia Stool Quality: Positive for BRB per rectum Episodes: 1 Associated Symptoms Associated Symptoms: Negative for Dysuria, Frequency or Hematuria Narrative Narrative: Patient presents with rectal bleeding that began tonight. Patient states he was straining while he was having a bowel movement and then noted some bleeding from his rectum tonight. Patient states that he noted blood on the toilet paper when he wipes. Patient states he put this in the toilet bowl and sat there for nathaly le bit longer. Patient states that when he got up he noted more blood in the toilet. Patient denies any rectal pain. Patient denies any abdominal pain. Patient denies any other episodes of hematochezia. Patient denies any nausea or vomiting. Patient denies any fevers or chills. Patient denies any urinary complaints. [facility] Medical History Asthma Declining functional status Encounter for laboratory testing for COVID-19 virus Lumbar stenosis Myocardial infarct MARGARITO (obstructive sleep apnea) Post-op pain Shingles Home Medications albuterol sulfate 90 mcg/actuation aerosol inhaler (Ventolin HFA) 1 inh in halation BID SOB 11/09/21 [History Last Taken 11/09/21] lisinopril 20 mg tablet 20 mg PO DAILY bp 11/09/21 [History Last Taken 11/09/21] mometasone-formoterol HFA 200 mcg-5 mcg/actuation aerosol inhaler (Dulera) 1 inh inhalation BID SOB 11/09/21 [History Last Taken 11/09/21] acetaminophen 300 mg-codeine 30 mg tablet 1 tab PO Q8H PRN Pain level 4-10 #6 tabs 11/13/21 [Rx Last Taken Unknown] acetaminophen 300 mg-codeine 30 mg tablet 1 tab PO Q8H pain 2 days #6 tabs 11/13/21 [Rx Last Taken 11/08/21] aspirin 81 mg tablet,delayed release 81 mg DAILY 04/12/22 [History Last Taken Unknown] atorvastatin 80 mg tablet 80 mg PO QHS 04/12/22 [History Last Taken Unknown] clopidogrel 75 mg tablet 75 mg PO DAILY 04/12/22 [History Last Taken Unknown] metoprolol tartrate 25 mg tablet 25 mg PO DAILY 04/12/22 [History Last Taken Unknown] hydrocortisone 2.5 % topical cream with perineal applicator (Anusol-HC) 1 applic OR BID #30 grams 06/15/22 [Rx Last Taken Unknown] Allergy/AdvReac Type Severity Reaction Status Date / Time cabbage Allergy can not Verified 06/15/22 20:08 swallow lettuce Allergy can not Verified 06/15/22 20:08 swallow onion Allergy Vomiting Verified 06/15/22 20:08 Family History Father No problems noted. Surgical History H/O hernia repair Stented coronary artery Social History Smoking Status: Former smoker ROS ROS ED Constitutional Constitutional ED: Denies chills or fever(s) Eyes Eyes: Denies blurry vision or change in vision ENT ENT ED: Reports rhinorrhea; Denies sore throat Cardiovascular Cardiovascular: Denies chest pain or palpitations Respiratory/Chest Respiratory/Chest: Reports cough; Denies dyspnea Gastrointestinal Gastrointestinal: Denies nausea or vomiting Genitourinary Genitourinary ED: Denies dysuria or hematuria Musculoskeletal Musculoskeletal: Reports back pain; Denies neck pain Integumentary Denies abscess or rash Neurologic Neurologic: Denies headache(s) or weakness Allergic/Immunologic Allergic/Immunologic ED: Denies mouth swelling or urticaria EXAM Physical Exam Const Vital Signs: 06/15/22 19:48 06/15/22 20:09 Temperature 97.5 F L Temperature Source Temporal Pulse Rate 58 L 55 L Respiratory Rate 16 18 Blood Pressure 157/92 H 156/83 H Blood Pressure Mean 113 107 Pulse Ox 99 96 Oxygen Delivery Method Room Air Room Air Positive well nourished and well developed General Appearance ED: well developed HEENT Reports moist mucous membranes Neck supple and no JVD Resp normal respiratory effort and clear to auscultation bilaterally Cardio regular rate, regular rhythm and no murmurs GI normal to inspection, nondistended, normoactive bowel sounds and non-tender Palpation: soft Rectal Exam: normal sphincter tone, heme positive stool gross blood, external hemorrhoid(s) and tenderness Extremity normal to inspection General Extremety ED: Negative for edema or tenderness General Extremity: Negative for edema Neuro oriented x3, CN's II-XII intact bilaterally and no sensory deficits noted Sensorium / Orientation: alert Motor Exam: strength 5/5 throughout Psych mental status grossly normal Skin no rashes or lesions noted MDM MDM MDM Narrative Medical decision making narrative: Differential diagnosis includes lower gastrointestinal bleeding, external hemorrhoid bleeding, rectal fissure, coagulopathy, and internal hemorrhoid bleeding. Rectal exam showed bleeding external hemorrhoids so this is most likely the source. CBC will be obtained to assess for anemia and leukocytosis. PT with INR and PTT will be obtained to assess for coagulopathy. Comprehensive metabolic profile will be obtained to assess for renal function, hepatic function, and electrolyte abnormality. Lab Data Attestation: I reviewed the patient's lab results. Lab results narrative: CBC was reviewed and was within normal limits. There is no evidence of anemia. PT was INR and PTT were reviewed and were within normal limits. Comprehensive metabolic profile was reviewed and was within normal limits. Labs: Laboratory Results - last 24 hr 06/15/22 06/15/22 06/15/22 21:07 21:07 21:07 WBC 8.9 RBC 4.63 Hgb 14.0 Hct 46.2 MCV 99.8 H MCH 30.2 MCHC 30.3 L RDW Std Deviation 50.4 H RDW Coeff of Leticia 13.9 Plt Count 283 MPV 10.1 Immature Gran % (Auto) 0.300 Neut % (Auto) 57.2 Lymph % (Auto) 23.6 Cherry % (Auto) 14.2 H Eos % (Auto) 3.5 Baso % (Auto) 1.2 H Absolute Neuts (auto) 5.1 Absolute Lymphs (auto) 2.10 Nucleated RBC % 0 PT 13.1 INR 1.0 APTT 27.8 Sodium 143 Potassium 4.1 Chloride 106 Carbon Dioxide 33.0 H Anion Gap 4 L BUN 15 Creatinine 0.99 Estim Creat Clear Calc 76.97 Est GFR (MDRD) Af Amer 100 Est GFR (MDRD) Non-Af 82 BUN/Creatinine Ratio 15.1 Glucose 84 Calcium 9.2 Total Bilirubin 0.60 AST 17 ALT 32 Alkaline Phosphatase 147 H Total Protein 7.1 Albumin 3.4 Globulin 3.7 Albumin/Globulin Ratio 0.9 Treatment and Re-Evaluation Narrative: Patient was advised that this is most likely external hemorrhoidal bleeding. Patient was given a prescription for Anusol HC. Patient was instructed to follow-up with his primary care physician in 5 to 7 days. Patient understood and was agreeable with the plan. All questions were answered. Discharge Plan Triage Chief Complaint: GI Bleed ED Provider: Arley Alvarado Dx/Rx/DC Orders Clinical Impression: External hemorrhoid, bleeding Instructions: ED Hemorrhoids Prescriptions: New hydrocortisone [Anusol-HC] 2.5 % cream with perineal applicator 1 applic OR BID Qty: 30 0RF No Action lisinopril 20 mg tablet 20 mg PO DAILY albuterol sulfate [Ventolin HFA] 90 mcg/actuation HFA aerosol inhaler 1 inh INHALATION BID Dulera 200-5 mcg/actuation HFA aerosol inhaler 1 inh INHALATION BID acetaminophen-codeine 300-30 mg Tablet 1 tab PO Q8H PRN (Reason: Pain level 4-10) Qty: 6 0RF acetaminophen-codeine 300-30 mg tablet 1 tab PO Q8H 2 Days Qty: 6 0RF Label Comments: take 1 tablet by mouth every 8 hours if needed for pain for 7 days atorvastatin 80 mg tablet 80 mg PO QHS Label Comments: TAKE 1 TABLET BY MOUTH AT BEDTIME clopidogrel 75 mg tablet 75 mg PO DAILY Label Comments: TAKE 1 TABLET BY MOUTH ONCE DAILY aspirin 81 mg tablet,delayed release (DR/EC) 81 mg DAILY Label Comments: TAKE 1 TABLET BY MOUTH DAILY metoprolol tartrate 25 mg tablet 25 mg PO DAILY Label Comments: TAKE 1 TABLET BY MOUTH TWICE DAILY Primary Care Provider: Samir Hay Referrals: Samir Hay MD [Primary Care Provider] -
--- NOTE | 2022-06-15 22:25 | ED.RN ---
PER DR. HEBERT, STOOL SAMPLE (IFOB) NOT NEEDED PRIOR TO DISCHARGE.
[2022-06-15 22:28] VITALS: BP 161/76; PULSE 54; RESP 18; O2SAT 98
[2022-06-15] MEDS: Hydrocortisone 25 MG Suppository RC (22:35)
== END 2022-06-15 22:43 | disposition home or self-care (01) ==
LOC: ED 20:44
PROVIDERS: Emergency Provider Emergency Medicine; PCP Internal Medicine; Visit Provider Emergency Medicine
DX: K64.4 Residual hemorrhoidal skin tags (principal); G47.33 Obstructive sleep apnea (adult) (pediatric); I25.2 Old myocardial infarction; Z87.891 Personal history of nicotine dependence
CPT/HCPCS: 80053; 85025; 85610; 85730; 99283; A4216

== ENCOUNTER → 2022-06-24 | Outpatient (CLI) | payer MEDICAID, SELFPAY ==
--- NOTE | 2022-06-24 16:10 | RAD_ITS ---
INDICATION: M96.1 EXAMINATION/TECHNIQUE: X-RAY - XR Spine Lumbar 2 or 3 Views COMPARISON: MRI lumbar spine November 09, 2021. FINDINGS: VERTEBRAE: Preserved vertebral body height. No fracture. L4-5 laminectomy with suggestion of moderate bilateral facet arthropathy and unchanged grade 1 anterolisthesis compared with November 09, 2021. Mild facet arthropathy L5-S1 without listhesis. Preservation of the normal lumbar lordosis. Minimal diffuse endplate osteophyte formation.. DISCS: Mild disc height loss at L4-5. INCLUDED ABDOMEN: Included bowel gas pattern is non-obstructive. RAD/Lumbar Spine 2 or 3 Views IMPRESSION: L4-5 laminectomy with degenerative discogenic change and concern for moderate facet arthropathy. Unchanged L4-5 grade 1 anterolisthesis compared November 09, 2021. Electronically Signed: Marcel Palacios MD at 0:43 EST ,
== END | disposition home or self-care (01) ==
LOC: RAD 16:06
PROVIDERS: PCP Internal Medicine; Visit Provider Anesthesiology Pain Medicine
DX: M96.1 Postlaminectomy syndrome, not elsewhere classified (principal)
CPT/HCPCS: 72100

== ENCOUNTER 2022-09-04 09:43 | Emergency (ER) | payer MEDICAID, SELFPAY ==
[2022-09-04 09:44] VITALS: BP 140/89; PULSE 57; RESP 14; TEMP 36.8; O2SAT 97; BMI 32.8
--- NOTE | 2022-09-04 09:58 | EX.ED.UPPERE ---
HPI History of Present Illness Chief Complaint: Upper Extremity Injury Narrative Narrative: Patient presents with pain around the right shoulder. Patient states he was working to build a table all day yesterday. He was doing cutting wood lifting it screwing it together by using a drill that he had to push very hard on. It was a little bit sore doing this work but it was not hurting that much. In the evening it got a little more sore. When he woke up this morning it is tighter. He can internally and externally rotate his shoulder well. But if he tries to lift it over his head it hurts. He has pain around the scapula on the right. He denies feeling sick. He states he has no chest pain trouble breathing shortness of breath nausea or vomiting. He has had heart disease but states that this is nothing like that. He is on aspirin but no Plavix anymore. He has not had any fevers. No recent infections. He has had dislocation of the left shoulder in the past but never the right. He did not have a fall or impact trauma to the shoulder. This was more of an overuse episode yesterday. If he presses on the muscles around the shoulder and scapula it hurts. If he does not move it it feels better. [facility] Medical History Asthma Declining functional status Encounter for laboratory testing for COVID-19 virus Lumbar stenosis Myocardial infarct MARGARITO (obstructive sleep apnea) Post-op pain Shingles Home Medications albuterol sulfate 90 mcg/actuation aerosol inhaler (Ventolin HFA) 1 inh inhalation BID SOB 11/09/21 [History Last Taken 11/09/21] lisinopril 20 mg tablet 20 mg PO DAILY bp 11/09/21 [History Last Taken 11/09/21] mometasone-formoterol HFA 200 mcg-5 mcg/actuation aerosol inhaler (Dulera) 1 inh inhalation BID SOB 11/09/21 [History Last Taken 11/09/21] acetaminophen 300 mg-codeine 30 mg tablet 1 tab PO Q8H PRN Pain level 4-10 #6 tabs 11/13/21 [Rx Last Taken Unknown] acetaminophen 300 mg-codeine 30 mg tablet 1 tab PO Q8H pain 2 days #6 tabs 11/13/21 [Rx Last Taken 11/08/21] aspirin 81 mg tablet,delayed release 81 mg DAILY 04/12/22 [History Last Taken Unknown] atorvastatin 80 mg tablet 80 mg PO QHS 04/12/22 [History Last Taken Unknown] clopidogrel 75 mg tablet 75 mg PO DAILY 04/12/22 [History Last Taken Unknown] metoprolol tartrate 25 mg tablet 25 mg PO DAILY 04/12/22 [History Last Taken Unknown] hydrocortisone 2.5 % topical cream with perineal applicator (Anusol-HC) 1 applic TN BID #30 grams 06/15/22 [Rx Last Taken Unknown] acetaminophen 300 mg-codeine 30 mg tablet 1 tab PO Q6H PRN pain 3 days #10 tabs 09/04/22 [Rx Last Taken Unknown] Allergy/AdvReac Type Severity Reaction Status Date / Time cabbage Allergy can not Verified 09/04/22 09:45 swallow lettuce Allergy can not Verified 09/04/22 09:45 swallow onion Allergy Vomiting Verified 09/04/22 09:45 Family History Father No problems noted. Surgical History H/O hernia repair Stented coronary artery Social History Smoking Status: Former smoker ROS ROS ED Constitutional Constitutional ED: Denies chills, fever(s), subjective or sweats ENT ENT ED: Denies rhinorrhea Cardiovascular Cardiovascular: Denies chest pain, palpitations or racing heartbeat Respiratory/Chest Respiratory/Chest: Denies cough, dyspnea or dyspnea on exertion Gastrointestinal Gastrointestinal: Denies abdominal pain, nausea or vomiting Musculoskeletal Musculoskeletal: Reports myalgias and other Details: See history of present illness. ; Denies neck pain Integumentary Reports other Details: No recent skin infections ; Denies abscess or rash Endocrine Endocrinology: Denies polydipsia or polyuria Hematologic/Lymphatic Hematologic/Lymphatic: Denies easy bleeding or easy bruising Allergic/Immunologic Allergic/Immunologic ED: Denies urticaria EXAM Physical Exam Narrative Exam Narrative: Patient is awake and alert looks comfortable and pleasant sitting on the bed I walk in. HEENT shows no sign of trauma. Mucous membranes are moist. No petechiae intraorally. Neck is supple. He really does not have any paraspinal tenderness at this time or pain with range of motion. Lungs are clear bilaterally. He can take a good deep breath without difficulties. His saturations are normal at 97% on room air showing no hypoxia. Heart is regular with a rate of about 60. Note he is on metoprolol which is likely the cause of the slightly lower heart rate. But it is asymptomatic and his blood pressure is good. Abdomen is soft completely nontender. He has a small periumbilical hernia but it easily reduces is chronic and it is not tender. Extremity: Lower extremities show no swelling edema or cords. He has excellent range of motion of the left upper extremity. The right upper extremity has tenderness around the muscles really diffusely around the shoulder scapular region. I can feel humeral head lateral to the acromion. There is no anterior fullness. No indication on exam whatsoever of dislocation. I can internally and externally rotate his arm through excellent range of motion passively or actively. I see no indication of infected or inflamed joint. I think this is muscular injury around the shoulder. Skin shows no sign of erythema rash vesicles or other acute process. Neurologically he has no distal numbness tingling or weakness. Patient has excellent distal pulses and capillary refill. Const Vital Signs: 09/04/22 09:44 Temperature 98.3 F Temperature Source Temporal Pulse Rate 57 L Respiratory Rate 14 Blood Pressure 140/89 H Blood Pressure Mean 106 Pulse Ox 97 Oxygen Delivery Method Room Air MDM MDM MDM Narrative Medical decision making narrative: Patient has reproducible muscular tenderness around the shoulder after an overuse episode. There is no indication by history or exam of acute cardiac disease. There is no indication of septic joint. I do not think he needs blood work or x-rays. There is no indication of dislocation. He did not have an acute impact type trauma. Patient is comfortable with this plan. I discussed medication options with him. Although he can use Tylenol I do not know if this will help his symptoms significantly. With his history of heart disease and already being on aspirin I really would prefer not using nonsteroidals. Of note, although his med list lists Plavix he has been off of this for about a month now. He does not want to use Vicodin or Percocet due to family history of abuse although he has never had this. He has used Tylenol with codeine without difficulties in the past. I did do online prescribing report that shows a single prescription for this in the last 2 years. We will write him for a short course of this. We also discussed using ice rather than heat and reasons to return. Discharge Plan Triage Chief Complaint: Upper Extremity Injury ED Provider: Kenneth Zaragoza Dx/Rx/DC Orders Clinical Impression: Muscle strain of right scapular region Instructions: ED Shoulder Sprain Prescriptions: New acetaminophen-codeine 300-30 mg tablet 1 tab PO Q6H PRN (Reason: pain) 3 Days Qty: 10 0RF No Action lisinopril 20 mg tablet 20 mg PO DAILY albuterol sulfate [Ventolin HFA] 90 mcg/actuation HFA aerosol inhaler 1 inh INHALATION BID Dulera 200-5 mcg/actuation HFA aerosol inhaler 1 inh INHALATION BID acetaminophen-codeine 300-30 mg Tablet 1 tab PO Q8H PRN (Reason: Pain level 4-10) Qty: 6 0RF acetaminophen-codeine 300-30 mg tablet 1 tab PO Q8H 2 Days Qty: 6 0RF Label Comments: take 1 tablet by mouth every 8 hours if needed for pain for 7 days atorvastatin 80 mg tablet 80 mg PO QHS Label Comments: TAKE 1 TABLET BY MOUTH AT BEDTIME clopidogrel 75 mg tablet 75 mg PO DAILY Label Comments: TAKE 1 TABLET BY MOUTH ONCE DAILY aspirin 81 mg tablet,delayed release (DR/EC) 81 mg DAILY Label Comments: TAKE 1 TABLET BY MOUTH DAILY metoprolol tartrate 25 mg tablet 25 mg PO DAILY Label Comments: TAKE 1 TABLET BY MOUTH TWICE DAILY hydrocortisone [Anusol-HC] 2.5 % cream with perineal applicator 1 applic TN BID Qty: 30 0RF Primary Care Provider: Samir Hay Referrals: Samir Hay MD [Primary Care Provider] - 3-5 Days if not improving Disposition Disposition: Home, Self Care
== END 2022-09-04 10:21 | disposition home or self-care (01) ==
PROVIDERS: Emergency Provider Emergency Medicine; PCP Internal Medicine; Visit Provider Emergency Medicine
DX: S46.811A Strain of other muscles, fascia and tendons at shoulder and upper arm level, right arm, initial encounter (principal); X50.9XXA Other and unspecified overexertion or strenuous movements or postures, initial encounter; Y93.89 Activity, other specified; I25.2 Old myocardial infarction; Z79.82 Long term (current) use of aspirin; Z87.891 Personal history of nicotine dependence
CPT/HCPCS: 99282

== ENCOUNTER 2022-11-30 08:00 | Emergency (ER) | payer MEDICAID, SELFPAY ==
[2022-11-30 08:00] VITALS: BP 166/127; PULSE 63; RESP 18; TEMP 36; O2SAT 99; BMI 32.8
--- NOTE | 2022-11-30 08:38 | EKG12_ITS ---
Test Reason : Blood Pressure : / mmHG Vent. Rate : 057 BPM Atrial Rate : 057 BPM P-R Int : 178 ms QRS Dur : 096 ms QT Int : 446 ms P-R-T Axes : 053 067 042 degrees QTc Int : 434 ms Sinus bradycardia Incomplete right bundle branch block Borderline ECG Confirmed by SAY FERRERA, JACOB ([id number]), slot editor WIN ARZATE ([id number]) on 12/02/2022 1:24:07 PM Referred By: Confirmed By:JACOB DEAL MD
--- NOTE | 2022-11-30 08:55 | RAD_ITS ---
HISTORY: chest pain. TECHNIQUE: XR Chest 1 View. COMPARISON: 04/12/2022. FINDINGS: CARDIOMEDIASTINAL BORDERS: Cardiac silhouette within normal limits in size. Mediastinal contour unremarkable. LUNGS: Mild linear left basilar opacity. PLEURA: No pleural effusion or pneumothorax seen. OSSEOUS STRUCTURES: Degenerative change. RAD/Chest 1 View (Portable) IMPRESSION: Mild left basilar opacity, likely atelectasis. Electronically Signed: Laura Crowley MD at 9:26 EDT ,
--- NOTE | 2022-11-30 09:02 | ED.VIS.DYS ---
HPI History of Present Illness Chief Complaint: Cough Narrative Narrative: 57-year-old male presenting with blood that he coughed up. He brought this in a cup. There is 1 small clot and some sputum. Patient states he coughed up this morning. Patient states yesterday he was packing up to move because he is being evicted from his home and all of the work which he was doing caused him to have some chest discomfort. He states he is not really supposed to work that hard because he has a history of cardiac disease. When I asked the patient if he had any lung issues he states that he has had them since he was hatched. He states that he was not born, however [place] then he was adopted by his cousin and his bitch . 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 He does state that he is short of breath with exertion most of the time. He did a breathing treatment before coming in today. States this did not really help. He has not had any history of blood clots, recent travel, recent surgery, recent bleed being bedridden immobilized, history of exogenous hormones. He does not have any chest pain today. He denies fever or chills. He denies nausea or vomiting. He states the only blood thinner is on his aspirin. [facility] Medical History Asthma Declining functional status Encounter for laboratory testing for COVID-19 virus Lumbar stenosis Myocardial infarct MARGARITO (obstructive sleep apnea) Post-op pain Shingles Home Medications albuterol sulfate 90 mcg/actuation aerosol inhaler (Ventolin HFA) 1 inh inhalation BID SOB 11/09/21 [History Last Taken 11/09/21] lisinopril 20 mg tablet 20 mg PO DAILY bp 11/09/21 [History Last Taken 11/09/21] mometasone-formoterol HFA 200 mcg-5 mcg/actuation aerosol inhaler (Dulera) 1 inh inhalation BID SOB 11/09/21 [History Last Taken 11/09/21] acetaminophen 300 mg-codeine 30 mg tablet 1 tab PO Q8H PRN Pain level 4-10 #6 tabs 11/13/21 [Rx Last Taken Unknown] acetaminophen 300 mg-codeine 30 mg tablet 1 tab PO Q8H pain 2 days #6 tabs 11/13/21 [Rx Last Taken 11/08/21] aspirin 81 mg tablet,delayed release 81 mg DAILY 04/12/22 [History Last Taken Unknown] atorvastatin 80 mg tablet 80 mg PO QHS 04/12/22 [History Last Taken Unknown] clopidogrel 75 mg tablet 75 mg PO DAILY 04/12/22 [History Last Taken Unknown] metoprolol tartrate 25 mg tablet 25 mg PO DAILY 04/12/22 [History Last Taken Unknown] hydrocortisone 2.5 % topical cream with perineal applicator (Anusol-HC) 1 applic [place] BID #30 grams 06/15/22 [Rx Last Taken Unknown] acetaminophen 300 mg-codeine 30 mg tablet 1 tab PO Q6H PRN pain 3 days #10 tabs 09/04/22 [Rx Last Taken Unknown] prednisone 50 mg tablet 50 mg PO DAILY #5 tabs 11/30/22 [Rx Last Taken Unknown] Allergy/AdvReac Type Severity Reaction Status Date / Time cabbage Allergy can not Verified 09/04/22 09:45 swallow lettuce Allergy can not Verified 09/04/22 09:45 swallow onion Allergy Vomiting Verified 09/04/22 09:45 Family History Father No problems noted. Surgical History H/O hernia repair Stented coronary artery Social History Smoking Status: Former smoker ROS ROS ED Constitutional Constitutional ED: Denies chills, fever(s) or sweats Eyes Eyes: Denies blurry vision or change in vision ENT ENT ED: Denies ear pain or sore throat Cardiovascular Cardiovascular: Reports chest pain; Denies palpitations or racing heartbeat Respiratory/Chest Respiratory/Chest: Reports dyspnea, sputum and other Details: Hemoptysis ; Denies cough Gastrointestinal Gastrointestinal: Denies abdominal pain, constipation, diarrhea, nausea or vomiting Genitourinary Genitourinary ED: Denies dysuria, hematuria or urinary frequency Musculoskeletal Musculoskeletal: Denies arthralgias, myalgias or neck pain Integumentary Denies abscess, Abrasions or rash Neurologic Neurologic: Denies headache(s), paresthesias or weakness Psychiatric Psychiatric: Denies anxiety, depression, suicidal ideation or suicidal thoughts Endocrine Endocrinology: Denies polydipsia or polyuria EXAM Physical Exam Const Vital Signs: 11/30/22 08:00 11/30/22 08:21 11/30/22 08:38 Temperature 96.8 F L Temperature Source Temporal Pulse Rate 63 Respiratory Rate 18 Respiratory Effort Short of Breath Respiratory Depth Normal Respiratory Pattern Normal Blood Pressure 166/127 H Blood Pressure Mean 140 Pulse Ox 99 Oxygen Delivery Method Room Air Room Air Room Air 11/30/22 09:39 11/30/22 09:39 Temperature Temperature Source Pulse Rate 57 L Respiratory Rate 18 Respiratory Effort Respiratory Depth Respiratory Pattern Blood Pressure Blood Pressure Mean Pulse Ox 96 Oxygen Delivery Method Room Air Positive well nourished General Appearance ED: NAD; Negative for pallor HEENT Reports moist mucous membranes atraumatic Eyes PERRL and EOMs intact bilaterally Neck no lymphadenopathy Resp normal respiratory effort Auscultation: wheezes; Negative for rales or rhonchi Cardio regular rate and regular rhythm GI non-tender Neuro oriented x3 and CN's II-XII intact bilaterally Sensorium / Orientation: alert Psych Mood & Affect: Negative for anxious Skin no wounds and skin turgor normal General Skin Exam: Negative for jaundice or pallor MDM MDM MDM Narrative Medical decision making narrative: Patient presenting with hemoptysis. He said he was having some chest pain yesterday while he was working around the house and is not responsive to that due to his cardiac history. HEART score of 3. Differential includes ACS, CHF, PE, pneumonia, COPD exacerbation, dehydration, electrolyte normalities, anemia. Patient has mild wheezes on exam he is given breathing treatment and Solu-Medrol. CBC shows no leukocytosis. Hemoglobin hematocrit are stable. Platelets are normal. Renal function and electrolytes within normal limits. High-sensitivity troponin initially 15 and his delta troponin was 12. D-dimer 0.53. EKG on my interpretation shows sinus bradycardia with a ventricular to 57 bpm with out signs of ischemia or ectopy. Chest x-ray on my interpretation shows no acute cardiopulmonary process. The radiologist interprets and agrees. Given the patient's hemoptysis we did go ahead and do a CTA today to rule out PE or other acute etiologies and the CTA is negative for PE, dissection, pneumonia. I suspect this is bronchitis with wheezing. He is given steroids for home. He has home breathing treatments. Patient discharged home in stable condition. Impression: 1. Acute bronchitis 2. Hemoptysis Lab Data Attestation: I reviewed the patient's lab results. Labs: Laboratory Results - last 24 hr 11/30/22 11/30/22 08:50 11:10 WBC 8.3 RBC 4.41 L Hgb 13.7 Hct 44.5 MCV 100.9 H MCH 31.1 MCHC 30.8 L RDW Std Deviation 49.0 H RDW Coeff of Leticia 13.3 Plt Count 249 MPV 10.1 Immature Gran % (Auto) 0.500 Neut % (Auto) 66.9 Lymph % (Auto) 16.9 L Marin % (Auto) 12.8 H Eos % (Auto) 1.8 Baso % (Auto) 1.1 H Absolute Neuts (auto) 5.6 Absolute Lymphs (auto) 1.41 Nucleated RBC % 0 D-Dimer Quant (PE/DVT) 0.53 H* Sodium 141 Potassium 3.7 Chloride 105 Carbon Dioxide 32.0 Anion Gap 4 L BUN 14 Creatinine 0.99 Estim Creat Clear Calc 76.04 Est GFR (MDRD) Af Amer 100 Est GFR (MDRD) Non-Af 83 BUN/Creatinine Ratio 14.2 Glucose 104 Calcium 8.3 L Troponin I High Sens 15 12 Radiography Diagnostic Testing: Clinical Impression(s) from Imaging Studies Chest X-Ray 11/30/22 08:55 IMPRESSION: Mild left basilar opacity, likely atelectasis. Electronically Signed: Laura Crowley MD at 9:26 EDT , Chest CTA 11/30/22 10:19 IMPRESSION: No evidence of pulmonary embolism. Moderate pulmonary emphysema with mild biapical scarring and mild lingular atelectasis. Electronically Signed: Laura Crowley MD at 11:09 EDT , Discharge Plan Triage Chief Complaint: Cough ED Provider: Ki Vazquez Dx/Rx/DC Orders Instructions: ED Bronchitis with Wheezing (Adult) Prescriptions: New prednisone 50 mg tablet 50 mg PO DAILY Qty: 5 0RF No Action lisinopril 20 mg tablet 20 mg PO DAILY albuterol sulfate [Ventolin HFA] 90 mcg/actuation HFA aerosol inhaler 1 inh INHALATION BID Dulera 200-5 mcg/actuation HFA aerosol inhaler 1 inh INHALATION BID acetaminophen-codeine 300-30 mg Tablet 1 tab PO Q8H PRN (Reason: Pain level 4-10) Qty: 6 0RF acetaminophen-codeine 300-30 mg tablet 1 tab PO Q8H 2 Days Qty: 6 0RF Patient Comments: take 1 tablet by mouth every 8 hours if needed for pain for 7 days atorvastatin 80 mg tablet 80 mg PO QHS Patient Comments: TAKE 1 TABLET BY MOUTH AT BEDTIME clopidogrel 75 mg tablet 75 mg PO DAILY Patient Comments: TAKE 1 TABLET BY MOUTH ONCE DAILY aspirin 81 mg tablet,delayed release (DR/EC) 81 mg DAILY Patient Comments: TAKE 1 TABLET BY MOUTH DAILY metoprolol tartrate 25 mg tablet 25 mg PO DAILY Patient Comments: TAKE 1 TABLET BY MOUTH TWICE DAILY hydrocortisone [Anusol-HC] 2.5 % cream with perineal applicator 1 applic MO BID Qty: 30 0RF acetaminophen-codeine 300-30 mg tablet 1 tab PO Q6H PRN (Reason: pain) 3 Days Qty: 10 0RF Primary Care Provider: Samir Hay Referrals: Samir Hay MD [Primary Care Provider] - Disposition Disposition: Home, Self Care
[2022-11-30 09:12] LABS: Absolute Lymphocyte Count 1.41 X10^3/uL (0.83-4.51); Absolute Neutrophil Count 5.6 X10^3/uL (2.0-7.7); Basophil# 0.09 X10^3/uL; Basophil% 1.1 % (0-1); Eosinophil# 0.15 X10^3/uL; Eosinophils% 1.8 % (0-5); Hematocrit 44.5 % (40-54); Hemoglobin 13.7 g/dL (13.0-16.5); Lymphocyte # 1.41 X10^3/ul (0.83-4.51); Lymphocyte % 16.9 % (19-41); Mean Corp Hgb Conc 30.8 g/dL (32-36); Mean Corpuscular Hgb 31.1 pg (27.0-32.0); Mean Corpuscular Volume 100.9 fL (80-94); Mean Platelet Vol. 10.1 fl (6.2-12.0); Monocyte# 1.07 X10^3/uL; Monocyte% 12.8 % (0-10); NRBC Flagged by Analyzer 0 % (0-5); Neutrophil # 5.57 X10^3/uL (2.7-7.7); Neutrophil % 66.9 % (47-70); Platelet Count 249 K/mm3 (150-450); RBC Distribution Width CV 13.3 % (11.6-14.6); Red Blood Count 4.41 M/mm3 (4.6-6.2); White Blood Count 8.3 K/mm3 (4.4-11.0)
[2022-11-30 09:15] LABS: Anion Gap 4 (5-15); BUN 14 mg/dL (7-18); BUN/Creat Ratio 14.2 RATIO (10-20); Calcium,Total 8.3 mg/dL (8.5-10.1); Chloride 105 mmol/L (98-107); Creatinine, Serum 0.99 mg/dL (0.70-1.30); EST Glomerular Filtration Rate 83 mL/min (>60); Est Glom Filt Rate - Afr Amer 100 mL/min (>60); Estimated Creatinine Clearance 76.04 ml/min; Glucose 104 mg/dL (74-106); Potassium 3.7 mmol/L (3.5-5.1); Sodium Level 141 mmol/L (136-145); Troponin-I HS 15 pg/mL (3.0-78.0); Troponin-I HS (w/2H Reflex) 15 pg/mL (3.0-78.0)
[2022-11-30] MEDS: MethylPREDNISolone 125 MG/2 ML Vial IV (09:21)
[2022-11-30 09:29] LABS: D-Dimer Quantitative (DVT/PE) 0.53 FEU/ug/m (0.27-0.49)
[2022-11-30] MEDS: Albuterol 2.5 MG/3 ML VIAL.NEB. INHALATION (09:37)
[2022-11-30] MEDS: Ipratropium/Albuterol Sulfate 3 ML AMPUL.NEB INHALATION (09:37)
[2022-11-30 09:39] VITALS: PULSE 57; RESP 18; O2SAT 96
--- NOTE | 2022-11-30 10:19 | CT_ITS ---
HISTORY: hemoptysis. TECHNIQUE: CT angiogram of the chest was performed after the intravenous administration of 100 mL Isovue 370. Post-processing of the angiographic images was performed with multiplanar reformation and 3D reconstruction. Individualized dose optimization techniques were used for this CT. 1208 images. COMPARISON: XR same day. FINDINGS: CENTRAL AIRWAYS: Patent. LUNGS: Moderate emphysema with mild apical scarring. Mild lingular atelectasis. PLEURA: No pneumothorax or significant pleural effusion. HEART/PERICARDIUM: Heart within normal limits in size. No pericardial effusion. PULMONARY ARTERIES: No filling defect. AORTA/VESSELS: No thoracic aortic aneurysm or dissection flap. MEDIASTINUM/DIA: No pathologically enlarged lymph nodes. OSSEOUS STRUCTURES: Degenerative change. UPPER ABDOMEN: Unremarkable. CT/CTA Chest W/WO Contrast IMPRESSION: No evidence of pulmonary embolism. Moderate pulmonary emphysema with mild biapical scarring and mild lingular atelectasis. Electronically Signed: Laura Crowley MD at 11:09 EDT ,
[2022-11-30 10:55] LABS: Reflex Troponin-HS? (from REC) Y
[2022-11-30 11:41] LABS: Troponin-I HS 12 pg/mL (3.0-78.0)
[2022-11-30 12:00] VITALS: BP 164/101; PULSE 65; RESP 18; O2SAT 95
== END 2022-11-30 12:09 | disposition home or self-care (01) ==
PROVIDERS: Emergency Provider Student in an Organized Health Care Education/Training Program; PCP Internal Medicine; Visit Provider Student in an Organized Health Care Education/Training Program
DX: J20.9 Acute bronchitis, unspecified (principal); R04.2 Hemoptysis; I25.2 Old myocardial infarction; Z95.5 Presence of coronary angioplasty implant and graft; Z79.02 Long term (current) use of antithrombotics/antiplatelets; Z79.82 Long term (current) use of aspirin; Z79.899 Other long term (current) drug therapy; Z87.891 Personal history of nicotine dependence
CPT/HCPCS: 71045; 71275; 80048; 84484; 85025; 85379; 93005; 94640; 96374; 99285; Q9967; A4216

== ENCOUNTER 2022-12-21 21:28 | Inpatient (IN) | payer MEDICAID, SELFPAY ==
[2022-12-21 21:30] VITALS: BP 139/94; PULSE 72; RESP 16; TEMP 35.9; O2SAT 94; BMI 34.2
[2022-12-21 21:33] VITALS: BP 139/94; PULSE 72; RESP 16; TEMP 35.9; O2SAT 94
--- NOTE | 2022-12-21 21:56 | EKG12_ITS ---
Test Reason : DYSRYTHMIA Blood Pressure : / mmHG Vent. Rate : 071 BPM Atrial Rate : 071 BPM P-R Int : 160 ms QRS Dur : 098 ms QT Int : 418 ms P-R-T Axes : 064 072 031 degrees QTc Int : 454 ms Sinus rhythm with Premature atrial complexes Incomplete right bundle branch block Borderline ECG When compared with ECG of 30-NOV-2022 08:38, Premature atrial complexes are now Present Confirmed by SAY FERRERA, JACOB ([id number]), editor managing newspaper KOREY ALLRED ([id number]) on 02/12/2023 2:03:58 PM Referred By: Confirmed By:JACOB DEAL MD
[2022-12-21 22:10] LABS: Absolute Lymphocyte Count 1.17 X10^3/uL (0.83-4.51); Absolute Neutrophil Count 5.9 X10^3/uL (2.0-7.7); Basophil# 0.08 X10^3/uL; Eosinophil# 0.21 X10^3/uL; Eosinophils% 2.5 % (0-5); Hematocrit 43.6 % (40-54); Hemoglobin 13.4 g/dL (13.0-16.5); Lymphocyte # 1.17 X10^3/ul (0.83-4.51); Lymphocyte % 13.9 % (19-41); Mean Corp Hgb Conc 30.7 g/dL (32-36); Mean Corpuscular Hgb 30.3 pg (27.0-32.0); Mean Corpuscular Volume 98.6 fL (80-94); Mean Platelet Vol. 9.6 fl (6.2-12.0); Monocyte# 0.98 X10^3/uL; Monocyte% 11.7 % (0-10); NRBC Flagged by Analyzer 0 % (0-5); Neutrophil # 5.94 X10^3/uL (2.7-7.7); Neutrophil % 70.5 % (47-70); Platelet Count 272 K/mm3 (150-450); RBC Distribution Width CV 13.1 % (11.6-14.6); RBC Distribution Width SD 47.2 fl (35.1-43.9); Red Blood Count 4.42 M/mm3 (4.6-6.2); White Blood Count 8.4 K/mm3 (4.4-11.0)
--- NOTE | 2022-12-21 22:10 | RAD_ITS ---
INDICATION: chest pain EXAMINATION/TECHNIQUE: X-RAY - XR Chest 1 View COMPARISON: Chest x-ray from 11/30/2022 FINDINGS: LINES/DEVICES: None. LUNGS: Hyperexpanded upper lungs again noted. No pulmonary edema or focal airspace consolidation. No sizable pleural effusion. No pneumothorax detected. MEDIASTINUM AND CARDIOVASCULAR STRUCTURES: Heart size within normal limits. Mediastinal contours unremarkable. BONES AND SOFT TISSUES: Skeletal degenerative changes. RAD/Chest 1 View (Portable) IMPRESSION: COPD Electronically Signed: Leroy Briscoe MD at 22:34 EDT ,
[2022-12-21 22:39] LABS: Anion Gap 3 (5-15); BNP,B-Type NATRIURETIC PEPTIDE 40.6 pg/mL (0-100); BUN 11 mg/dL (7-18); BUN/Creat Ratio 10.2 RATIO (10-20); Calcium,Total 8.5 mg/dL (8.5-10.1); Chloride 108 mmol/L (98-107); Creatinine, Serum 1.08 mg/dL (0.70-1.30); EST Glomerular Filtration Rate 75 mL/min (>60); Est Glom Filt Rate - Afr Amer 90 mL/min (>60); Glucose 102 mg/dL (74-106); Potassium 3.4 mmol/L (3.5-5.1); Sodium Level 141 mmol/L (136-145); Troponin-I HS 14 pg/mL (3.0-78.0)
--- NOTE | 2022-12-21 22:45 | ED.VIS.DYS ---
HPI History of Present Illness Chief Complaint: Edema Detail of Chief Complaint: Bilateral lower leg swelling with shortness of breath. Informant: patient Onset/Context/Timing Onset: Weeks Context: gradual Timing: Intermittent Quality: Positive for Dyspnea on exertion and Orthopnea Current Severity: Moderate Maximum Severity: Moderate Worsened by: Exertion and Lying flat Relieved by: Rest Associated Symptoms Chest Pain: Positive for Intermittent Narrative Narrative: 57-year-old male history of an OR with 2 stents in 2020. He is on aspirin only no other blood thinners. States he quit smoking at that time. States the last several weeks maybe even months he had bilateral lower extremity swelling that comes and goes. He has had intermittent chest pain. And he gets short of breath. Shortness of breath is worse with exertion. Walking steps or lying flat. No prior history of CHF. No history of DVT or PE. No history of liver disease or kidney disease. PE Risk Factors: Negative for Cancer, OCP + Smoking + > 35, Prior DVT or PE, Recent immobilization, Recent surgery or Recent travel Prior similar symptoms: Yes Recent Illness/Hospitalization: No PFSH PFSH Medical History Asthma Declining functional status Encounter for laboratory testing for COVID-19 virus Lumbar stenosis Myocardial infarct MARGARITO (obstructive sleep apnea) Post-op pain Shingles Home Medications albuterol sulfate 90 mcg/actuation aerosol inhaler (Ventolin HFA) 1 inh inhalation BID SOB 11/09/21 [History Last Taken 11/09/21] lisinopril 20 mg tablet 20 mg PO DAILY bp 11/09/21 [History Last Taken 11/09/21] mometasone-formoterol HFA 200 mcg-5 mcg/actuation aerosol inhaler (Dulera) 1 inh inhalation BID SOB 11/09/21 [History Last Taken 11/09/21] acetaminophen 300 mg-codeine 30 mg tablet 1 tab PO Q8H PRN Pain level 4-10 #6 tabs 11/13/21 [Rx Last Taken Unknown] acetaminophen 300 mg-codeine 30 mg tablet 1 tab PO Q8H pain 2 days #6 tabs 11/13/21 [Rx Last Taken 11/08/21] aspirin 81 mg tablet,delayed release 81 mg PO DAILY 04/12/22 [History Last Taken Unknown] atorvastatin 80 mg tablet 80 mg PO QHS 04/12/22 [History Last Taken Unknown] metoprolol tartrate 25 mg tablet 25 mg PO DAILY 04/12/22 [History Last Taken Unknown] acetaminophen 300 mg-codeine 30 mg tablet 1 tab PO Q6H PRN pain 3 days #10 tabs 09/04/22 [Rx Last Taken Unknown] Allergy/AdvReac Type Severity Reaction Status Date / Time cabbage Allergy can not Verified 12/21/22 21:35 swallow lettuce Allergy can not Verified 12/21/22 21:35 swallow onion Allergy Vomiting Verified 12/21/22 21:35 garlic AdvReac Mild Abd Verified 12/21/22 21:35 cramps/diarrhea Family History Father No problems noted. Family History no significant family his Surgical History H/O hernia repair Stented coronary artery Social History housing: homeless Smoking Status: Former smoker ROS ROS ED ROS Narrative Shortness of breath. Chest pain. Bilateral leg swelling. Review of Systems ROS Unobtainable: Denies due to encephalopathy Constitutional Constitutional ED: Denies chills or fever(s) Eyes Eyes: Denies blurry vision ENT ENT ED: Denies ear pain Cardiovascular Cardiovascular: Reports chest pain and orthopnea; Denies palpitations or racing heartbeat Respiratory/Chest Respiratory/Chest: Reports dyspnea, dyspnea on exertion and orthopnea; Denies cough Gastrointestinal Gastrointestinal: Denies abdominal pain, constipation, diarrhea, melena, nausea or vomiting Genitourinary Genitourinary ED: Denies dysuria or hematuria Musculoskeletal Musculoskeletal: Denies arthralgias Integumentary Denies abscess Neurologic Neurologic: Denies headache(s) Psychiatric Psychiatric: Denies anxiety Endocrine Endocrinology: Denies cold intolerance Hematologic/Lymphatic Hematologic/Lymphatic: Denies easy bleeding, easy bruising or lymphadenopathy EXAM Physical Exam Narrative Exam Narrative: Well-appearing 49-year-old male sitting upright in bed. Vital signs are stable. He is afebrile. He does not look septic or toxic. He is in no distress. Pulse ox 94% on room air no signs hypoxia. H EENT exam unremarkable. Posterior pharynx normal. Neck nontender. No JVD. No lymphadenopathy. Lungs clear to auscultation bilaterally. Heart regular rhythm rate about 70 no murmur. Abdomen soft nontender normal bowel sounds no peritoneal signs. Moving all 4 extremities. 1+ pitting edema both lower extremities. Calves are nontender. Neurologically is awake and alert with no focal motor deficits. Const Vital Signs: 12/21/22 21:30 12/21/22 21:33 12/21/22 21:47 Temperature 96.6 F L 96.6 F L Temperature Source Temporal Temporal Pulse Rate 72 72 Respiratory Rate 16 16 Respiratory Effort Short of Breath Blood Pressure 139/94 H 139/94 H Blood Pressure Mean 109 109 Pulse Ox 94 94 Oxygen Delivery Method Room Air Room Air 12/21/22 22:12 Temperature Temperature Source Pulse Rate Respiratory Rate Respiratory Effort Blood Pressure Blood Pressure Mean Pulse Ox Oxygen Delivery Method Room Air Positive well nourished and well developed; Negative for cachectic, contractures or unkempt General Appearance ED: well developed and NAD; Negative for unkempt, cachectic, contractures or pallor Nutritional Appearance: Negative for cachectic HEENT Reports moist mucous membranes; Denies dry mucous membranes atraumatic; Negative for trauma or tenderness Mouth ED: No dry mucous membranes Mouth: No dry mucous membranes Eyes PERRL and EOMs intact bilaterally General Eye ED: Negative for pale conjunctiva or scleral icterus Neck no lymphadenopathy, supple, no meningeal signs and no JVD General: Negative for tenderness Lymph Lymphatic: Negative for other Chest Wall Chest: Negative for other Resp normal respiratory effort and clear to auscultation bilaterally Effort and Inspection: Negative for pain with movement Auscultation: Negative for rales, rhonchi or wheezes Cardio regular rate, regular rhythm, S1 normal heart sound, S2 normal heart sound and no murmurs Rate: Negative for bradycardia or tachycardic Rhythm: Negative for abnormal rhythm GI non-tender, non-distended and no masses Inspection: Negative for other Auscultation: normoactive bowel sounds Palpation: soft; Negative for tender or guarding Bladder / Kidney Exam: No other Back/Spine no CVA tenderness and normal to inspection General Back: Negative for CVA tenderness Extremity Negative for normal to inspection Extremity Narrative: Bilateral lower extremity 1+ pitting edema. General Extremety ED: Yes edema; Negative for tenderness General Extremity: edema Neuro oriented x3 and CN's II-XII intact bilaterally Sensorium / Orientation: alert, oriented to person, oriented to place and oriented to time; Negative for orientation impaired, confused, lethargic or stuporous Speech: speech normal Motor Exam: strength 5/5 throughout Psych mental status grossly normal Appearance: Negative for unkempt Attitude: No agitated Mood & Affect: Negative for depressed, anxious or tearful Thought Process: normal thought process Skin no wounds and skin turgor normal General Skin Exam: Negative for jaundice or pallor Lesions: no lesions Rashes: no rashes Trauma: Negative for abrasion or laceration MDM MDM MDM Narrative Medical decision making narrative: 57-year-old male OR 2 years ago with 2 stents. Now developing signs and symptoms of congestive heart failure with bilateral pedal edema, exertional dyspnea and orthopnea. Undergo cardiac work-up. Repeat exam patient is resting comfortably at 11:06 PM. He is sitting upright in bed. He and I went over his test results. He is unsure if he is ever had an echocardiogram. He has never had one here. Told me that he parked about 50 yards from the front door of the emergency department. Stated he had to stop 3 times prior to walking in because he gets so short of breath. I already spoke to the hospitalist he will be admitted for suspected CHF. She did want me to obtain a D-dimer prior to admission. If that is positive we will order a CTA. Be checked out the overnight physician. History & Record Review Discussion w/independent historian: Patient Additional record(s) reviewed:: Prior inpatient record, Prior outpatient record, Prior ED visit and Prior labs Lab Data Attestation: I reviewed the patient's lab results. Lab results narrative: CBC unremarkable white count 8.4. H&H of 13 and 43. Platelets 272. BMP shows a potassium of 3.4. A gap of 3. Normal BUN of 11 and creatinine of 1. Troponin is normal at 14. BNP is 40. Labs: Laboratory Results - last 24 hr 12/21/22 22:01 WBC 8.4 RBC 4.42 L Hgb 13.4 Hct 43.6 MCV 98.6 H MCH 30.3 MCHC 30.7 L RDW Std Deviation 47.2 H RDW Coeff of Leticia 13.1 Plt Count 272 MPV 9.6 Immature Gran % (Auto) 0.400 Neut % (Auto) 70.5 H Lymph % (Auto) 13.9 L [place] % (Auto) 11.7 H Eos % (Auto) 2.5 Baso % (Auto) 1.0 Absolute Neuts (auto) 5.9 Absolute Lymphs (auto) 1.17 Nucleated RBC % 0 Sodium 141 Potassium 3.4 L Chloride 108 H Carbon Dioxide 30.0 Anion Gap 3 L BUN 11 Creatinine 1.08 Estim Creat Clear Calc 69.70 Est GFR (MDRD) Af Amer 90 Est GFR (MDRD) Non-Af 75 BUN/Creatinine Ratio 10.2 Glucose 102 Calcium 8.5 Troponin I High Sens 14 B-Natriuretic Peptide 40.6 Radiography Chest X-Ray - ED: 1 View, Read by ED Physician, Normal, Heart, Lungs, Mediastinum, Bony Structures and No Acute Disease Diagnostic Testing: Clinical Impression(s) from Imaging Studies Chest X-Ray 12/21/22 22:10 IMPRESSION: COPD Electronically Signed: Leroy Briscoe MD at 22:34 EDT , Chest x-ray, portable, single view interpreted both by myself and the radiologist shows chronic changes no acute process. No cardiomegaly. No CHF or pleural effusions. Rhythm Strip Rhythm Strip: Sinus Rhythm Rate: 71 Ectopy: PAC(s) EKG Initial EKG: Attestation: I personally reviewed and interpreted this EKG as follows: Comments: Normal sinus rhythm rate of 71. No acute signs of OR or ischemia. Incomplete right bundle branch block. Occasional PACs. Discharge Plan Triage Chief Complaint: Edema ED Provider: Chucho Raphael Dx/Rx/DC Orders Clinical Impression: History of OR (myocardial infarction), Bilateral lower extremity edema, History of COPD, Exertional dyspnea, History of coronary artery stent placement, CHF (congestive heart failure) Prescriptions: No Action lisinopril 20 mg tablet 20 mg PO DAILY albuterol sulfate [Ventolin HFA] 90 mcg/actuation HFA aerosol inhaler 1 inh INHALATION BID Dulera 200-5 mcg/actuation HFA aerosol inhaler 1 inh INHALATION BID acetaminophen-codeine 300-30 mg Tablet 1 tab PO Q8H PRN (Reason: Pain level 4-10) Qty: 6 0RF acetaminophen-codeine 300-30 mg tablet 1 tab PO Q8H 2 Days Qty: 6 0RF Patient Comments: take 1 tablet by mouth every 8 hours if needed for pain for 7 days atorvastatin 80 mg tablet 80 mg PO QHS Patient Comments: TAKE 1 TABLET BY MOUTH AT BEDTIME aspirin 81 mg tablet,delayed release (DR/EC) 81 mg PO DAILY Patient Comments: TAKE 1 TABLET BY MOUTH DAILY metoprolol tartrate 25 mg tablet 25 mg PO DAILY Patient Comments: TAKE 1 TABLET BY MOUTH TWICE DAILY acetaminophen-codeine 300-30 mg tablet 1 tab PO Q6H PRN (Reason: pain) 3 Days Qty: 10 0RF Primary Care Provider: Samir Hay Referrals: Samir Hay MD [Primary Care Provider] - Disposition Disposition: Acute Care Hospital [facility]
[2022-12-21 23:12] LABS: AST(SGOT) 35 U/L (15-37); Alanine Aminotransfer ALT/SGPT 51 U/L (16-61); Albumin, Serum 2.9 g/dL (3.2-5.0); Alkaline Phosphatase 135 U/L (45-117); Bilirubin, Direct 0.16 mg/dL (0.00-0.30); Globulin 3.5 g/dL (2.2-4.2); Protein, Total 6.4 g/dL (6.4-8.2)
--- NOTE | 2022-12-21 23:16 | HP.PCM.HOS_ITS ---
[facility] - General General Date of Admission: 12/21/22 Date of Service: 12/21/22 Chief Complaint: Exertional SOB and LE Edema HPI Narrative SHAWNA PRAJAPATI, is a 57 M who presented to the emergency department at [facility] on 12/21/2022 complaining of exertional dyspnea and bilateral lower extremity swelling. He stated initially a few weeks ago he started having swelling and the swelling would go down when his legs were elevated however now its been persistent. He is currently homeless and living out of his jeep and has been doing so for pretty much the entire month of November at this point. He is supposed to be on oxygen at 2 L [id number] at baseline and then wearing a CPAP nocturnally. He has not been able to do this at all since he is been homeless living out of his jeep. He does complain of some right-sided calf pain with ambulation however not much at rest. There is some tenderness with palpation however. 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 He reported that he was hatched at area and then adopted by his cousin and his bitch . He did reiterate that to nursing as well however did not report this to me this evening. Patient denies any chest pain. He is not short of breath at rest. He does follow with Dr. Daria Escamilla at [facility] for pulmonary medicine and I was able to review her most recent note. He has gold stage III COPD at baseline. He has history of remote tobacco abuse and has been an asthmatic his whole life. He reports he quit smoking when he had his heart attack. He had a recent stress test that was performed on 11/18/2022 that was unremarkable for inducible ischemia and his EF on that was 71%. On presentation his temperature is 96.6, heart rate 72, blood pressure was 139/94, respiratory rate was 16 oxygen saturation was 94% on room air at rest however with exertion on room air his oxygen saturations dropped to 84%. This was done on room air. During the time of my eval we discussed his lung disease further and he admitted that he is to be on 2 L [id number] but is not due to the above circumstances. CBC is unremarkable. Chemistry panel showed mild hypokalemia with a potassium of 3.4 but was otherwise unremarkable. Liver functions normal. Troponin was 14 and BNP was 40.6. EKG was normal sinus rhythm with no ST-T wave changes concerning for acute ischemia and normal intervals. D-dimer was elevated at 1.54. Chest x-ray was unremarkable other than findings consistent with COPD and CTA of his chest was done given an elevated D-dimer and showed COPD and atherosclerotic disease but no pulmonary embolus. [facility] Medical History (Updated 12/22/22 @ 02:[address] Cammy Alberto DO) Asthma CAD (coronary artery disease) History of COPD History of OK (myocardial infarction) HTN (hypertension) Hyperlipemia Lumbar stenosis Myocardial infarct MARGARITO (obstructive sleep apnea) Home Medications albuterol sulfate 90 mcg/actuation aerosol inhaler (Ventolin HFA) 1 inh inhalation BID SOB 11/09/21 [History Last Taken 11/09/21] lisinopril 20 mg tablet 20 mg PO DAILY bp 11/09/21 [History Last Taken 11/09/21] mometasone-formoterol HFA 200 mcg-5 mcg/actuation aerosol inhaler (Dulera) 1 inh inhalation BID SOB 11/09/21 [History Last Taken 11/09/21] acetaminophen 300 mg-codeine 30 mg tablet 1 tab PO Q8H PRN Pain level 4-10 #6 tabs 11/13/21 [Rx Last Taken Unknown] acetaminophen 300 mg-codeine 30 mg tablet 1 tab PO Q8H pain 2 days #6 tabs 11/13/21 [Rx Last Taken 11/08/21] aspirin 81 mg tablet,delayed release 81 mg PO DAILY 04/12/22 [History Last Taken Unknown] atorvastatin 80 mg tablet 80 mg PO QHS 04/12/22 [History Last Taken Unknown] metoprolol tartrate 25 mg tablet 25 mg PO DAILY 04/12/22 [History Last Taken Unknown] acetaminophen 300 mg-codeine 30 mg tablet 1 tab PO Q6H PRN pain 3 days #10 tabs 09/04/22 [Rx Last Taken Unknown] Allergy/AdvReac Type Severity Reaction Status Date / Time cabbage Allergy can not Verified 12/21/22 21:35 swallow lettuce Allergy can not Verified 12/21/22 21:35 swallow onion Allergy Vomiting Verified 12/21/22 21:35 garlic AdvReac Mild Abd Verified 12/21/22 21:35 cramps/diarrhea Family History Father No problems noted. Family History no significant family his Surgical History H/O hernia repair Stented coronary artery Social History (Updated 12/22/22 @ 02:[address] Cammy Alberto DO) housing: homeless other: Patient is currently living out of his car and is supposed to be on o xygen Smoking Status: Former smoker alcohol intake: never substance use type: does not use ROS Constitutional Constitutional: Reports change in weight; Denies anorexia, chills, fatigue, fever(s), malaise, night sweats, weakness or other Eyes Eyes: Denies blurry vision, change in eye color, change in vision, discharge from eye(s), double vision, erythema, eye pain, loss of vision or other ENT HEENT: Denies abnormal hearing, dysphagia, ear pain, epistaxis, headache(s), hearing loss, nasal congestion, nasal discharge, post nasal drip, sinus pressure, sore throat or other Cardiovascular Cardiovascular: Reports dyspnea on exertion, edema and paroxysmal nocturnal d yspnea; Denies chest pain, claudication, lightheadedness, orthopnea, palpitations, rapid heart rate, syncope or other Respiratory/Chest Respiratory/Chest: Reports dyspnea and shortness of breath with exertion; Denies cough, excessive phlegm production, hemoptysis, productive cough, shortness of breath at rest, wheezing or other Gastrointestinal Gastrointestinal: Denies abdominal pain, coffee ground emesis, constipation, diarrhea, dyspepsia, hematemesis, hematochezia, loose stools, melena, nausea, vomiting or other Genitourinary Genitourinary: Denies burning urination, difficulty urinating, dysuria, hematuria, nocturia, urinary frequency, urinary hesitancy, urinary incontinence, urinary urgency or other Musculoskeletal Musculoskeletal: Denies arthralgias, back pain, joint pain, joint stiffness, joint swelling, myalgias, neck pain or other Neurologic Neurologic: Denies abnormal gait, abnormal speech, confusion, disequilibrium, dizziness, focal weakness, headache(s), numbness, paresthesias, seizure-like activity, seizures, syncope, tingling, tremor(s) or other Psychiatric Psychiatric: Denies anxiety, depression, homicidal ideation, suicidal ideation or other Endocrine Endocrinology: Denies change in body appearance, cold intolerance, excessive sweating, heat intolerance, polydipsia, polyuria or other Hematologic/Lymphatic Hematologic/Lymphatic: Denies anemia, easy bleeding, easy bruising, lymphadenopathy or other Allergic/Immunologic Allergic/Immunologic: Denies rhinitis, hives, eczemia, asthma or other Vital Signs Vital Signs Vital Signs: 12/21/22 21:30 12/21/22 21:33 12/21/22 21:47 Temperature 96.6 F L 96.6 F L Temperature Source Temporal Temporal Pulse Rate 72 72 Respiratory Rate 16 16 Respiratory Effort Short of Breath Blood Pressure 139/94 H 139/94 H Blood Pressure Mean 109 109 Pulse Ox 94 94 Oxygen Delivery Method Room Air Room Air 12/21/22 22:12 Temperature Temperature Source Pulse Rate Respiratory Rate Respiratory Effort Blood Pressure Blood Pressure Mean Pulse Ox Oxygen Delivery Method Room Air Weight Weight: 99.1 kg Body Mass Index (BMI) 34.2 Physical Exam Const alert, oriented x3, no apparent distress and well nourished Constitutional Narrative: Obese, middle-aged, white male, appears older than stated age, sitting up in bed, appears comfortable and nontoxic, currently on 2 L nasal cannula with saturations at 97%. General Appearance: cooperative HEENT normocephalic, head/scalp atraumatic and hearing grossly normal bilaterally HEENT Narrative: Dentures in place, Mallampati 3, no thrush Eyes PERRL, EOMs intact bilaterally and conjunctivae normal Eyes Narrative: No scleral icterus Neck no lymphadenopathy and supple Neck Narrative: Trachea midline, no thyroid enlargement Resp normal respiratory effort, no retractions, no use of accessory muscles and clear to auscultation bilaterally Resp Narrative: Diffusely diminished but clear improved aeration at the bases compared to the apices Auscultation: Negative for rales, rhonchi or wheezes Cardio regular rate, regular rhythm, S1 normal heart sound, S2 normal heart sound, no murmurs, no rub, no gallops and no clicks GI normal to inspection, nondistended, normoactive bowel sounds and soft to palpation GI Narrative: Umbilical hernia noted-tender at this area Extremity Extremity Narrative: 2+ doughy pitting edema up to just distal to the knees, no cyanosis or clubbing, positive Homans' sign on right Skin no wounds, skin turgor normal, no jaundice, no petechiae and no mottling Skin Narrative: Skin is pale without any significant wounds noted, seborrheic dermatitis noted on his face Neuro oriented x3, CN's II-XII intact bilaterally, moves all extremities and no focal motor deficits Speech: speech normal Psych cooperative and affect normal Psych Narrative: Patient with tangential thought processes at time and Appearance: unkempt and disheveled Attitude: calm and engaged Activity / Motor Behavior: appropriate eye contact Speech: normal speech Mood & Affect: euthymic mood Thought Process: illogical Thought Content: delusion(s) Delusional Thought Content Details: Positive for other Insight: limited Judgement: fair Results Lab / Micro Data Attestation: I reviewed the patient's lab results. 12/21/22 22:01 12/21/22 22:01 Labs: Laboratory Results - last 24 hr 12/21/22 22:01: WBC 8.4, RBC 4.42 L, Hgb 13.4, Hct 43.6, MCV 98.6 H, MCH 30.3, MCHC 30.7 L, RDW Std Deviation 47.2 H, RDW Coeff of Leticia 13.1, Plt Count 272, MPV 9.6, Immature Gran % (Auto) 0.400, Neut % (Auto) 70.5 H, Lymph % (Auto) 13.9 L, Christian % (Auto) 11.7 H, Eos % (Auto) 2.5, Baso % (Auto) 1.0, Absolute Neuts (auto) 5.9, Absolute Lymphs (auto) 1.17, Nucleated RBC % 0, Sodium 141, Potassium 3.4 L , Chloride 108 H, Carbon Dioxide 30.0, Anion Gap 3 L, BUN 11, Creatinine 1.08, Estim Creat Clear Calc 69.70, Est GFR (MDRD) Af Amer 90, Est GFR (MDRD) Non-Af 75, BUN/Creatinine Ratio 10.2, Glucose 102, Calcium 8.5, Total Bilirubin 0.60, Direct Bilirubin 0.16, AST 35, ALT 51, Alkaline Phosphatase 135 H, Troponin I High Sens 14, B-Natriuretic Peptide 40.6, Total Protein 6.4, Albumin 2.9 L, Globulin 3.5 Rhythm Strip Rhythm Strip: Sinus Rhythm Rate: 71 Ectopy: PAC(s) Radiology Impression Chest X-Ray 12/21/22 22:10 IMPRESSION: COPD Electronically Signed: Leroy Briscoe MD at 22:34 EDT , Assessment & Plan Assessment/Plan (1) Exertional dyspnea: (2) Hypokalemia: (3) Bilateral lower extremity edema: (4) Delusions: (5) Hypoxia: (6) Homelessness: PLAN: Plan Exertional dyspnea/hypoxia/bilateral lower extremity edema -Patient is supposed to be on 2 L nasal cannula [id number] however he has not been doing this due to being homeless and not having supplies -He to is also supposed to be wearing CPAP at night and again has not been able to do this due to his homelessness -I highly suspect this is the probable cause for his shortness of breath with exertion as well as his edema in his lower extremities--> the chronic hypoxia over the last month is probably caused increasing pulmonary hypertension causing swelling and exertional dyspnea -We will consult social work/case management to assist with discharge planning and to assure patient can get his oxygen and have CPAP available -Continue supplemental oxygen at 2 L -We will check bilateral lower extremity Dopplers with negative CTA of chest, positive Homans' sign, and elevated D-dimer -We will place him on Eliquis 10 mg twice daily for now until we can rule out DVT -Check echocardiogram -Lasix 40 mg IV push twice daily -Fluid restriction to 1750 cc daily -Sodium restricted diet -Daily weights -Monitor electrolytes Hypokalemia -Potassium replacement 40 mill equivalents x1 dose -We will monitor given diuretics and check a.m. magnesium level Elevated D-dimer -CTA negative for PE -With swelling we will check Dopplers of lower extremities -Homans' sign is positive on right -We will fully anticoagulate until we can rule out DVT with Dopplers Delusions -Patient has told people many times that he was hat[place] 50 and that he is not human and has multiple bits of different types of DNA. He also reports that he was adopted by his cousin and his bitch . -May need psychiatric evaluation while he is hospitalized as I suspect this may be contributing to his homelessness and overall social issues Gold stage III COPD/asthma/overlap syndrome -Continue home inhalers -Patient is oxygen dependent at baseline at 2 L however has not been compliant due to social circumstances as noted above -Continue oxygen at 2 L -As needed albuterol CAD/HTN/HPL -Previous PCI in [place] remotely -Patient had a stress test done on 11/18/2022 that was negative for any inducible ischemia and estimated EF at that time was 71% -Continue home aspirin -Continue home atorvastatin -Continue home metoprolol -Continue home lisinopril DVT prophylaxis -Full anticoagulation for now given elevated D-dimer and positive Homans' sign -Eliquis 10 mg p.o. twice daily -Dopplers are negative [facility] CODE STATUS Full code Charges/Coding Visit Charges Inpatient E&M: 43120 Init Hosp L3
[2022-12-21 23:54] LABS: D-Dimer Quantitative (DVT/PE) 1.66 FEU/ug/m (0.27-0.49)
[2022-12-22] VITALS (12 sets, daily range): BP systolic 107–155; BP diastolic 69–98; PULSE 54–89; RESP 12–24; TEMP 35.9–36.7; O2SAT 84–98; BMI 33.1; BMI 32.7
--- NOTE | 2022-12-22 02:48 | VDLE_ITS ---
Reason For Study: Bilateral leg swelling RIGHT LEFT GSV is normal. GSV is normal. CFV is compressible, spontaneous, phasic, CFV is compressible, spontaneous, phasic, competent and demonstrates normal competent, and demonstrates normal augmentation. augmentation. FV is compressible, spontaneous, phasic, FV is compressible, spontaneous, phasic, competent and demonstrates normal competent and demonstrates normal augmentation. augmentation. POP V is compressible, spontaneous, phasic, POP V is compressible, spontaneous, phasic, competent and demonstrates normal competent and demonstrates normal augmentation. augmentation. T/P Trunk is compressible. T/P Trunk is compressible. PTV is compressible. PTV is compressible. RT PerV is compressible. LT PerV is compressible. Right Gastroc vein is partially noncompressible with bright intraluminal echoes. Procedure This is a venous duplex using B-mode, color flow and spectral Doppler. Exam performed portable in patient room. A preliminary report was called and/or faxed to [facility]. VL/Venous Duplex US - Dionisio Extrem Interpretation Summary Chronic deep vein thrombosis is noted in the right gastrocnemius vein. Deep veins of the left lower extremity are patent and compressible segmentally. There is no evidence of left lower extremity deep vein thrombosis. The bilateral great saphenous vei ns appear patent and compressible segmentally. Ordering Physician: Cammy Alberto Referring Physician: Samir Hay M.D. Performed By: Martita Gold RVT
--- NOTE | 2022-12-22 02:48 | ECHOCS_ITS ---
Version 2 Reason For Study: SOB, Edema Procedure This was a 2D Doppler, Color Flow transthoracic echocardiogram. The study was technically difficult. Contrast injection was performed. Exam performed portable in patient room. Left Ventricle Normal LV size. The estimated ejection fraction is 55-60 %. No evidence for diastolic dysfunction. No regional wall motion abnormalities noted. Right Ventricle Normal RV size. Normal systolic function. Atria Normal left atrium. Normal right atrium. No doppler evidence for ASD. A few bubbles are noticed in the left atrium. The right-sided chambers are very well opacified with bubbles at the beginning of imaging. It is unclear how soon after right-sided opacification the bubbles enter the left side. If further evaluation of right to left shunt is required, consider repeating echo with bubble study. Mitral Valve There is no mitral valve stenosis. No mitral valve insufficiency. Tricuspid Valve There is no tricuspid stenosis. Trivial tricuspid valve insufficiency. Pulmonary artery systolic pressure is 35 mmHg. Aortic Valve Trisinus/trileaflet aortic valve. There is no aortic stenosis. No aortic valve insufficiency. Pulmonic Valve There is no pulmonic valvular stenosis. Trivial pulmonic valve insufficiency. Great Vessels Normal aortic root. Pericardium/Pleural No pericardial effusion. Medication Diluted definity 2ml given slow IV push to enhance endocardial definition. Performed a rapid injection of agitated mix of 9 cc saline and 1cc air to assess for atrial septal defect. MMode/2D Measurements & Calculations LVIDd: 4.0 cm IVSd: 1.0 cm Ao root diam: 3.1 cm LVIDs: 2.9 cm LVPWd: 1.1 cm LA dimension: 3.3 cm RVDd: 4.1 cm FS: 27.6 % LAV(MOD-bp): 25.0 ml LVAd ap4: 31.5 cm2 SV(MOD-sp4): 66.8 ml LAV(MOD-bp) Indexed: 11.9 ml/m2 LVLd ap4: 8.5 cm LAV(MOD-sp2): 19.1 ml EDV(MOD-sp4): 96.5 ml LAV(MOD-sp4): 28.5 ml EDV(sp4-el): 99.6 ml LVAs ap4: 15.6 cm2 LVLs ap4: 6.6 cm ESV(MOD-sp4): 29.7 ml ESV(sp4-el): 31.1 ml EF(MOD-sp4): 69.2 % EF(sp4-el): 68.8 % SV(sp4-el): 68.5 ml LA A4 area: 13.4 cm2 RA A4 area: 11.6 cm2 TAPSE: 2.3 cm Time Measurements MV dec time: 0.22 sec Doppler Measurements & Calculations MV E max jaswinder: 54.2 cm/sec Lat Peak E' Jaswinder: 12.7 cm/sec Med Peak E' Jaswinder: 8.1 cm/sec MV A max jaswinder: 69.3 cm/sec E/E' lat: 4.3 E/E' med: 6.7 MV E/A: 0.78 MV V2 max: 68.9 cm/sec MV P1/2t max jaswinder: 61.7 cm/sec Ao V2 max: 116.2 cm/sec MV max P.9 mmHg MV P1/2t: 75.1 msec Ao max P.4 mmHg MV V2 mean: 38.6 cm/sec Ao V2 mean: 71.6 cm/sec MV mean P.69 mmHg MV dec slope: 240.8 cm/sec2 Ao mean P.5 mmHg MV V2 VTI: 21.1 cm MVA(P1/2t): 2.9 cm2 Ao V2 VTI: 22.1 cm AV (velocity ratio): 0.93 LV V1 max: 109.9 cm/sec PA V2 max: 148.2 cm/sec TR max jaswinder: 268.4 cm/sec LV V1 max P.8 mmHg TR max P.8 mmHg LV V1 mean P.2 mmHg LV V1 mean: 68.9 cm/sec LV V1 VTI: 20.5 cm ECHO/Echo Complete W/ Contrast Interpretation Summary The estimated ejection fraction is 55-60 %. No evidence for diastolic dysfunction. Please see the body of the report for details regarding bubble study. Ordering Physician: Cammy Alberto Referring Physician: Samir Hay M.D. Performed By: Gerry Eric RCS
[2022-12-22] MEDS: Furosemide 40 MG/4 ML Vial IV ×3 (04:26→17:22)
[2022-12-22] MEDS: Potassium Chloride Oral Tablet 20 MEQ 40 MEQ PO (04:26)
[2022-12-22] MEDS: APIXABAN 5 MG TABLET 10 MG PO ×3 (05:18→21:31)
[2022-12-22] MEDS: Acetaminophen 500 MG Tablet 1000 MG PO ×3 (05:20→21:31)
[2022-12-22 06:53] LABS: Absolute Lymphocyte Count 1.25 X10^3/uL (0.83-4.51); Absolute Neutrophil Count 3.5 X10^3/uL (2.0-7.7); Basophil# 0.08 X10^3/uL; Basophil% 1.3 % (0-1); Eosinophil# 0.18 X10^3/uL; Hematocrit 44.5 % (40-54); Hemoglobin 14.2 g/dL (13.0-16.5); Lymphocyte # 1.25 X10^3/ul (0.83-4.51); Lymphocyte % 20.8 % (19-41); Mean Corp Hgb Conc 31.9 g/dL (32-36); Mean Corpuscular Hgb 31.6 pg (27.0-32.0); Mean Corpuscular Volume 98.9 fL (80-94); Mean Platelet Vol. 9.6 fl (6.2-12.0); Monocyte# 0.96 X10^3/uL; NRBC Flagged by Analyzer 0 % (0-5); Neutrophil # 3.52 X10^3/uL (2.7-7.7); Neutrophil % 58.7 % (47-70); Platelet Count 268 K/mm3 (150-450); RBC Distribution Width CV 13.2 % (11.6-14.6)
[2022-12-22] MEDS: Budesonide Respules 0.5 MG/2 ML AMPUL.NEB. INHALATION (07:07)
[2022-12-22] MEDS: Albuterol 2.5 MG/3 ML VIAL.NEB. INHALATION ×2 (07:07→12:39)
[2022-12-22 07:28] LABS: Anion Gap 1 (5-15); BUN 10 mg/dL (7-18); BUN/Creat Ratio 8.2 RATIO (10-20); Calcium,Total 8.6 mg/dL (8.5-10.1); Chloride 106 mmol/L (98-107); Creatinine, Serum 1.22 mg/dL (0.70-1.30); EST Glomerular Filtration Rate 65 mL/min (>60); Est Glom Filt Rate - Afr Amer 78 mL/min (>60); Estimated Creatinine Clearance 61.71 ml/min; Glucose 106 mg/dL (74-106); Phosphorus 3.1 mg/dL (2.5-4.9); Potassium 3.5 mmol/L (3.5-5.1); Sodium Level 141 mmol/L (136-145); Thyroid Stim Hormone (TSH) 1.38 uIU/mL (0.358-3.74)
--- NOTE | 2022-12-22 07:43 | PN.HOSP_ITS ---
Reason for Visit Reason for Visit: Diagnoses Hypokalemia (12/22/22) Delusional disorders (12/22/22) Other forms of dyspnea (12/22/22) Hypoxemia (12/22/22) Localized edema (12/22/22) Homelessness unspecified (12/22/22) Subjective Subjective Patient is a 57-year-old male admitted with shortness of breath with exertion as well as bilateral lower extremity edema Objective Data Objective Data Vital Signs: Vital Signs Temp Pulse Resp BP Pulse Ox O2 Del Method O2 Flow Rate 98.0 F 68 18 107/70 94 Nasal Cannula 2 12/22/22 06:39 12/22/22 07:07 12/22/22 07:07 12/22/22 06:39 12/22/22 07:07 12/22/22 07:07 12/22/22 07:07 Oxygen Flow Rate (L/min) 2 Oxygen Delivery Method Nasal Cannula Weight: 94.8 kg Body Mass Index (BMI) 32.7 Intake & Output: Intake and Output for Last 24 Hours 12/20/22 12/21/22 12/22/22 23:59 23:59 23:59 Intake Total 220 / 220 Output Total 1700 / 1700 Balance -1480 / -1480 Lab / Micro Data 12/22/22 06:16 12/22/22 06:16 Labs: Laboratory Results - last 24 hr 12/21/22 22:01: WBC 8.4, RBC 4.42 L, Hgb 13.4, Hct 43.6, MCV 98.6 H, MCH 30.3, MCHC 30.7 L, RDW Std Deviation 47.2 H, RDW Coeff of Leticia 13.1, Plt Count 272, MPV 9.6, Immature Gran % (Auto) 0.400, Neut % (Auto) 70.5 H, Lymph % (Auto) 13.9 L, [place] % (Auto) 11.7 H, Eos % (Auto) 2.5, Baso % (Auto) 1.0, Absolute Neuts (auto) 5.9, Absolute Lymphs (auto) 1.17, Nucleated RBC % 0, Sodium 141, Potassium 3.4 L , Chloride 108 H, Carbon Dioxide 30.0, Anion Gap 3 L, BUN 11, Creatinine 1.08, Estim Creat Clear Calc 69.70, Est GFR (MDRD) Af Amer 90, Est GFR (MDRD) Non-Af 75, BUN/Creatinine Ratio 10.2, Glucose 102, Calcium 8.5, Total Bilirubin 0.60, Direct Bilirubin 0.16, AST 35, ALT 51, Alkaline Phosphatase 135 H, Troponin I High Sens 14, B-Natriuretic Peptide 40.6, Total Protein 6.4, Albumin 2.9 L, Globulin 3.5 12/21/22 23:16: D-Dimer Quant (PE/DVT) 1.66 H* 12/22/22 06:16: WBC 6.0, RBC 4.50 L, Hgb 14.2, Hct 44.5, MCV 98.9 H, MCH 31.6, MCHC 31.9 L, RDW Std Deviation 48.0 H, RDW Coeff of Leticia 13.2, Plt Count 268, MPV 9.6, Immature Gran % (Auto) 0.200, Neut % (Auto) 58.7, Lymph % (Auto) 20.8, [place] % (Auto) 16.0 H, Eos % (Auto) 3.0, Baso % (Auto) 1.3 H, Absolute Neuts (auto) 3. 5, Absolute Lymphs (auto) 1.25, Nucleated RBC % 0, Sodium 141, Potassium 3.5, Chloride 106, Carbon Dioxide 34.0 H, Anion Gap 1 L, BUN 10, Creatinine 1.22, Estim Creat Clear Calc 61.71, Est GFR (MDRD) Af Amer 78, Est GFR (MDRD) Non-Af 65, BUN/Creatinine Ratio 8.2 L, Glucose 106, Calcium 8.6, Phosphorus 3.1, Magnesium 2.0, TSH 1.38 Radiography Diagnostic Testing: Radiology Impression Chest X-Ray 12/21/22 22:10 IMPRESSION: COPD Electronically Signed: Leroy Briscoe MD at 22:34 EDT , Chest CTA 12/22/22 23:54 IMPRESSION: COPD and atherosclerotic disease with no pulmonary embolus identified. Electronically Signed: Leroy Briscoe MD at 1:55 EDT , Rhythm Strip Rhythm Strip: Sinus Rhythm Rate: 71 Ectopy: PAC(s) Physical Exam Narrative GENERAL: cooperative HEENT: Atraumatic; normocephalic EYES; Anicteric, Normal Conjunctiva NECK; supple, normal thyroid, RESPIRATORY: Diminished to auscultation CARDIOVASCULAR: Regular S1 S2, GI: soft, normoactive bowel sounds, : No Renal angle tenderness; EXTREMITIES: edema, no clubbing, MUSCULOSKELETAL: no muscle wasting NEURO: Awake; no lateralizing signs. SKIN: No Rash PSYCH; Flat affect Assessment & Plan Assessment/Plan (1) Exertional dyspnea: PLAN: Plan Patient is a 57-year-old male admitted with shortness of breath with exertion as well as bilateral lower extremity edema 1. Acute congestive heart failure ? Unspecified. Admitted to monitored bed. Managed with diuresis, strict input and output, daily weight supplemental oxygen. Echo ordered for EF assessment 2. Coronary artery disease ? With previous stent placement 3. Hypokalemia -Corrected per protocol 4. Overlap syndrome with mild intermittent asthma/COPD ? Aerosol treatment as needed 5. Hypertension - Blood pressure controlled, home medications continued with dose adjustment as needed 6. Class I obesity with BMI of 32 ? Complicating care weight loss advised 7. Dyslipidemia -Patient is on statin therapy, continued at home dose 8. Obstructive sleep apnea ? Patient is apparently supposed to be on CPAP. Patient patient is however Homeless and has therefore not been compliant 9. Elevated D-dimer ? CTA of the chest was negative for PE patient was however started on full dose systemic anticoagulation and venous duplex ordered if negative will be discontinued and patient placed on prophylactic dose 10. DVT prophylaxis ? Patient is on full dose systemic anticoagulation Time spent in the patient's overall evaluation,decision-making process, review of diagnostic data, adjustment of management, discussion with other providers, nursing nursing and ancillary staff involved in patient's care documentation, 50 Minutes Charges/Coding Visit Charges Inpatient E&M: 68085 [facility] Hosp L3
[2022-12-22] MEDS: Metoprolol Tartrate 25 MG Tablet PO (09:33)
[2022-12-22] MEDS: Aspirin E.C. 81 MG Tablet PO (09:33)
[2022-12-22] MEDS: Lisinopril 20 MG Tablet PO (09:36)
[2022-12-22] MEDS: 0.9% Saline Lock 10 ML Syringe IV (17:22)
[2022-12-22] MEDS: MELATONIN 3 MG TABLET PO (21:31)
[2022-12-22] MEDS: Atorvastatin Calcium 80 MG Tablet PO (21:31)
--- NOTE | 2022-12-22 23:54 | CT_ITS ---
STUDY: CTA CHEST REASON FOR EXAM: Male, 57 years old with dyspnea with elevated d-dimer TECHNIQUE: CT angiogram of chest was performed with the intravenous administration of 100 ml Isovue-370. Post-processing of the angiographic images was performed, with MIP and MPR reconstructions. Individualized dose optimization techniques were used for this CT. COMPARISON: CTA chest from 11/30/2022 FINDINGS: PULMONARY ARTERIES: No pulmonary arterial filling defects identified. AORTA AND VISUALIZED GREAT VESSELS: No thoracic aortic aneurysm or dissection. Great vessels are patent. HEART AND PERICARDIUM: Heart size within normal limits. Coronary arterial calcifications and stents noted. No significant pericardial effusion. MEDIASTINUM AND DIA: No mediastinal or hilar adenopathy. Esophagus is unremarkable. LUNGS, PLEURA AND LARGE AIRWAYS: Hyperexpanded lungs and pulmonary emphysema again noted with mild apical scarring. No pulmonary mass or consolidation. No pleural effusion. No pneumothorax. BONES: Intact with no suspicious osseous lesion. CHEST WALL: No chest wall mass or acute findings. VISUALIZED ABDOMEN: No acute findings. CT/CTA Chest W/WO Contrast IMPRESSION: COPD and atherosclerotic disease with no pulmonary embolus identified. Electronically Signed: Leroy Briscoe MD at 1:55 EDT ,
[2022-12-23] VITALS (9 sets, daily range): BP systolic 104–129; BP diastolic 64–80; PULSE 54–81; RESP 14–19; TEMP 36.2–36.6; O2SAT 94–98; BMI 31.9
--- NOTE | 2022-12-23 03:27 | CPS ---
RT did not get to pt for tx or I.s and PEP. Increased work load caused RT to be later than normal time. By then, pt was already sleeping. RN notified.
[2022-12-23] MEDS: Acetaminophen 500 MG Tablet 1000 MG PO ×3 (05:29→21:15)
[2022-12-23] MEDS: Albuterol 2.5 MG/3 ML VIAL.NEB. INHALATION ×3 (07:50→19:45)
[2022-12-23] MEDS: Budesonide Respules 0.5 MG/2 ML AMPUL.NEB. INHALATION ×2 (07:50→19:45)
[2022-12-23] MEDS: Aspirin E.C. 81 MG Tablet PO (09:27)
[2022-12-23] MEDS: Metoprolol Tartrate 25 MG Tablet PO (09:28)
[2022-12-23] MEDS: APIXABAN 5 MG TABLET 10 MG PO (09:28)
[2022-12-23] MEDS: Lisinopril 20 MG Tablet PO (09:28)
[2022-12-23] MEDS: Furosemide 40 MG/4 ML Vial IV ×2 (09:30→17:22)
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
--- NOTE | 2022-12-23 20:31 | PN.HOSP_ITS ---
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 Patient has stated some nonsensical conversations to social work administrator and case management today, echocardiogram was done today which showed minimal pulmonary hypertension and normal EF, patient had venous duplexes of his legs which showed a chronic DVT in the right gastrocnemius vein, I talked to vascular surgery concerning this and they felt that it was best that the patient be monitored and he not be placed on anticoagulation partially due to the fact that he is noncompliant with medications and he does not have reliable follow-up with physicians. Objective Data Objective Data Vital Signs: Vital Signs Temp Pulse Resp BP Pulse Ox O2 Del Method O2 Flow Rate 97.1 F L 75 18 104/64 94 Nasal Cannula 2 12/23/22 14:26 12/23/22 15:30 12/23/22 15:30 12/23/22 14:26 12/23/22 14:26 12/23/22 15:00 12/23/22 16:08 Oxygen Flow Rate (L/min) 2 Oxygen Delivery Method Nasal Cannula Weight: 92.5 kg Body Mass Index (BMI) 31.9 Intake & Output: Intake and Output for Last 24 Hours 12/21/22 12/22/22 12/23/22 23:59 23:59 23:59 Intake Total 900 / 900 320 / 320 Output Total 6050 / 6050 450 / 450 Balance -5150 / -5150 -130 / -130 Lab / Micro Data 12/22/22 06:16 12/22/22 06:16 Radiography Diagnostic Testing: Radiology Impression Echocardiogram 12/22/22 02:48 Interpretation Summary The estimated ejection fraction is 55-60 %. No evidence for diastolic dysfunction. Ordering Physician: Cammy Alberto Referring Physician: Samir Hay M.D. Performed By: Gerry Eric RCS Venous Doppler Study 12/22/22 02:48 Interpretation Summary Chronic deep vein thrombosis is noted in the right gastrocnemius vein. Deep veins of the left lower extremity are patent and compressible segmentally. There is no evidence of left lower extremity deep vein thrombosis. The bilateral great saphenous veins appear patent and compressible segmentally. Ordering Physician: Cammy Alberto Referring Physician: Samir Hay M.D. Performed By: Martita Gold RVT Rhythm Strip Rhythm Strip: Sinus Rhythm Rate: 71 Ectopy: PAC(s) Physical Exam Const alert, oriented x3, no apparent distress, average body habitus and healthy appearing General Appearance: cooperative, well kempt and well developed Orientation / Consciousness: awake, oriented to person, oriented to place and oriented to time HEENT normocephalic, head/scalp atraumatic and moist oral mucous membranes Eyes PERRL, EOMs intact bilaterally and conjunctivae normal Neck supple, no JVD, thyroid normal and no carotid bruits General: trachea midline Resp normal respiratory effort, no retractions, no use of accessory muscles and clear to auscultation bilaterally Auscultation: Negative for rales, rhonchi or wheezes Cardio regular rate, regular rhythm, S1 normal heart sound, S2 normal heart sound, no murmurs, no rub and no gallops GI normal to inspection, nondistended, normoactive bowel sounds, soft to palpation, non-tender and non-distended Extremity Extremity Narrative: There is some generalized edema in the lower legs bilaterally this is not severe. Skin no rashes or lesions noted General Skin Exam: no breakdown Neuro oriented x3, CN's II-XII intact bilaterally, no focal motor deficits and no sensory deficits noted Sensorium / Orientation: awake, alert, oriented to person, oriented to place and oriented to time Speech: speech normal Psych Psych Narrative: Patient has bizarre affect and talks about nonsensical topics while carrying on conversation. Assessment & Plan Assessment/Plan (1) Hypoxia: PLAN: Plan 1. Chronic hypoxia-we are attempting to locate a facility where the patient will be able to live and uses oxygen concentrator. Patient has an oxygen concentrator but it is in the storage unit and he has been living out of his car. #2 chronic COPD-complicates care, medical course, recovery, and prognosis #3 peripheral edema-etiology unclear, patient has responded to IV diuretics, hayden singer's ejection fraction was 55 to 60% on his echocardiogram and his pulmonary artery pressures 35 mm #4 probable schizoaffective disorder-patient has some nonsensical conversation with this examiner and fellow care workers, he is on no medication for any psychiatric illness. Patient does not appear to be a threat to himself. Total clinical time spent by myself addressing the patient's medical issues, reviewing the data, and collaborating with the patient's care team: 35 minutes Charges/Coding Visit Charges Inpatient E&M: 95718 Subs Hosp L2
[2022-12-23] MEDS: Atorvastatin Calcium 80 MG Tablet PO (21:15)
[2022-12-23] MEDS: MELATONIN 3 MG TABLET PO (21:26)
[2022-12-24] VITALS (9 sets, daily range): BP systolic 95–130; BP diastolic 62–84; PULSE 57–72; RESP 16–18; TEMP 36.4–36.5; O2SAT 89–97; BMI 31.9
[2022-12-24] MEDS: Acetaminophen 500 MG Tablet 1000 MG PO ×2 (05:22→13:21)
[2022-12-24] MEDS: Budesonide Respules 0.5 MG/2 ML AMPUL.NEB. INHALATION (07:38)
[2022-12-24] MEDS: Albuterol 2.5 MG/3 ML VIAL.NEB. INHALATION ×2 (07:38→13:02)
[2022-12-24] MEDS: Metoprolol Tartrate 25 MG Tablet PO (08:23)
[2022-12-24] MEDS: Lisinopril 20 MG Tablet PO (08:23)
[2022-12-24] MEDS: Aspirin E.C. 81 MG Tablet PO (08:23)
[2022-12-24] MEDS: Furosemide 40 MG/4 ML Vial IV (08:24)
[2022-12-24] MEDS: 0.9% Saline Lock 10 ML Syringe IV (08:25)
--- NOTE | 2022-12-24 14:56 | CASEMGMT ---
SW met with patient to see if he had the name of the residential he said he could go to in [place] and SW could try and call. Patient said he called [facility] in [place] and they can take him. SW asked patient if he will get his concentrator and cpap out of storage so he can use it. Patient said he is not going to take it out of storage until he has a permanent place to go. CASI updated physician. Felisa Stokes ALMOND PASTE MOLDER RONNELL
--- NOTE | 2022-12-24 15:35 | PCM.DC ---
Discharge Instructions Diet Discharge Diet: No restrictions Activity Discharge Activity: Return to Normal Activity Weight Bearing Status: Full weight bearing Follow Up Care Test Results: Test results from this visit will be discussed in further detail at your follow-up appointment, if applicable. Discharge Plan Admission Admit Date/Time: 12/22/22 02:00 Primary Reason for Your Visit: Hypoxia Attending Provider: Leroy Keating Primary Care Provider: Samir Hay Consulting Providers: Cammy Alberto; Alfred Baptiste Instructions Additional Instructions / Restrictions: I would recommend you use your CPAP at night along with 2 L of oxygen Discharge Orders/Prescriptions Prescriptions: New furosemide [Lasix] 40 mg tablet 40 mg PO DAILY Qty: 30 0RF Rx Instructions: For leg swelling potassium chloride 10 mEq tablet extended release 20 meq PO DAILY Qty: 60 0RF Continued lisinopril 20 mg tablet 20 mg PO DAILY albuterol sulfate [Ventolin HFA] 90 mcg/actuation HFA aerosol inhaler 1 inh INHALATION BID Dulera 200-5 mcg/actuation HFA aerosol inhaler 1 inh INHALATION BID acetaminophen-codeine 300-30 mg Tablet 1 tab PO Q8H PRN (Reason: Pain level 4-10) Qty: 6 0RF acetaminophen-codeine 300-30 mg tablet 1 tab PO Q8H 2 Days Qty: 6 0RF Patient Comments: take 1 tablet by mouth every 8 hours if needed for pain for 7 days atorvastatin 80 mg tablet 80 mg PO QHS Patient Comments: TAKE 1 TABLET BY MOUTH AT BEDTIME aspirin 81 mg tablet,delayed release (DR/EC) 81 mg PO DAILY Patient Comments: TAKE 1 TABLET BY MOUTH DAILY metoprolol tartrate 25 mg tablet 25 mg PO DAILY Patient Comments: TAKE 1 TABLET BY MOUTH TWICE DAILY acetaminophen-codeine 300-30 mg tablet 1 tab PO Q6H PRN (Reason: pain) 3 Days Qty: 10 0RF Referrals / Follow Up: Samir Hay MD [Primary Care Provider] - Within 1 Month Disposition Disposition (needs filled in before D/C Order can be placed): Home, Self Care
--- NOTE | 2022-12-24 15:40 | PCM.DC.SUM ---
Providers Date of Admission: 12/22/22 Date of Discharge: 12/24/22 Primary Care Physician: Dr. Samir Hay MD Reason For Visit: HYPOXIA AND EDEMA Diagnosis Discharge Diagnosis (1) Exertional dyspnea: Status: Acute Code(s): R06.09 - Other forms of dyspnea Plan 1. Chronic hypoxia-we are attempting to locate a facility where the patient will be able to live and uses oxygen concentrator. Patient has an oxygen concentrator but it is in the storage unit and he has been living out of his car. #2 chronic COPD-complicates care, medical course, recovery, and prognosis #3 peripheral edema-etiology unclear, patient has responded to IV diuretics, patient's ejection fraction was 55 to 60% on his echocardiogram and his pulmonary artery pressures 35 mm #4 probable schizoaffective disorder-patient has some nonsensical conversation with this examiner and fellow care workers, he is on no medication for any psychiatric illness. Patient does not appear to be a threat to himself. Medications at Discharge Home Medications albuterol sulfate 90 mcg/actuation aerosol inhaler (Ventolin HFA) 1 inh inhalation BID SOB 11/09/21 lisinopril 20 mg tablet 20 mg PO DAILY bp 11/09/21 mometasone-formoterol HFA 200 mcg-5 mcg/actuation aerosol inhaler (Dulera) 1 inh inhalation BID SOB 11/09/21 acetaminophen 300 mg-codeine 30 mg tablet 1 tab PO Q8H PRN Pain level 4-10 #6 tabs 11/13/21 acetaminophen 300 mg-codeine 30 mg tablet 1 tab PO Q8H pain 2 days #6 tabs 11/13/21 aspirin 81 mg tablet,delayed release 81 mg PO DAILY 04/12/22 atorvastatin 80 mg tablet 80 mg PO QHS 04/12/22 metoprolol tartrate 25 mg tablet 25 mg PO DAILY 04/12/22 acetaminophen 300 mg-codeine 30 mg tablet 1 tab PO Q6H PRN pain 3 days #10 tabs 09/04/22 furosemide 40 mg tablet (Lasix) 40 mg PO DAILY #30 tabs 12/24/22 potassium chloride 10 mEq tablet,extended release 20 meq (2 x 10 mEq) PO DAILY #60 tabs 12/24/22 Hospital Course Operations None Procedures 2-D Echocardiogram Summary of Care Provided Minutes Spent on Discharge: 31 Hospital Course: In theThis 57-year-old white male urgency room at [facility] with complaints of dyspnea on exertion and orthopnea. The symptoms had been present over the last several weeks and possibly months, he was supposed to wear home oxygen with CPAP but the patient is homeless and lives out of his car and his oxygen concentrator and CPAP order and a storage unit. Evaluation in the emergency room included a chest x-ray which showed no evidence of congestive heart failure-possible COPD was noted, patient's labs were unremarkable. Patient was admitted to PCU, he was placed on IV Lasix and had an echocardiogram performed which showed a normal ejection fraction, patient required 2 L of oxygen during his hospital stay and this examiner did not feel the patient had congestive heart failure. Due to the patient's chronic hypoxia, attempts were made to locate a homeless detention for the patient to be discharged to at the time of discharge from the hospital, patient made arrangements to go to a homeless detention in [place], he made a decision not to go get his oxygen concentrator and he felt he was stable for discharge there without oxygen even though he knew that he would require oxygen at least at night. Patient's pulse ox on room air was 94% at the time of discharge. On 12/24/2022, patient was seen and examined: On examination he appeared in good health and spirits. Vital signs as documented. Skin warm and dry and without overt rashes. Neck without JVD, neck was supple, trachea midline, thyroid was normal. Lungs clear bilaterally, normal air movement was noted. Heart exam notable for regular rhythm, normal sounds and absence of murmurs, rubs or gallops. Abdomen unremarkable and without evidence of organomegaly, masses, or abdominal aortic enlargement. Bowel sounds are present, abdomen is not distended. Extremities nonedematous, no cyanosis was noted, no clubbing was noted. Neuro: Cranial nerves II through XII are grossly intact, no focal motor deficits were noted, sensation to light touch and pinprick intact, motor exam 5/5 throughout. Psych: Patient is alert and oriented x3, he does not appear anxious or depressed, he does not appear agitated. Patient was discharged in stable condition on 12/24/2022 Weight / BMI Weight Weight: 92.5 kg Body Mass Index (BMI) 31.9 ABG / Lab / Microbiology Data 12/22/22 06:16 12/22/22 06:16 Radiography Diagnostic Testing: Radiology Impression Echocardiogram 12/22/22 02:48 Interpretation Summary The estimated ejection fraction is 55-60 %. No evidence for diastolic dysfunction. Please see the body of the report for details regarding bubble study. Ordering Physician: Cammy Alberto Referring Physician: Samir Hay M.D. Performed By: Gerry Eric RCS D/C Instructions Discharge Diet: No restrictions Weight Bearing Status: Full weight bearing Meaningful Use Info Meaningful Use Diagnoses (Choose all that apply): None applicable Discharge Plan Admission Admit Date/Time: 12/22/22 02:00 Primary Reason for Your Visit: Hypoxia Attending Provider: Leroy Keating Primary Care Provider: Samir Hay Consulting Providers: Cammy Alberto; Alfred Baptiste Instructions Additional Instructions / Restrictions: I would recommend you use your CPAP at night along with 2 L of oxygen Discharge Orders/Prescriptions Prescriptions: New furosemide [Lasix] 40 mg tablet 40 mg PO DAILY Qty: 30 0RF Rx Instructions: For leg swelling potassium chloride 10 mEq tablet extended release 20 meq PO DAILY Qty: 60 0RF Continued lisinopril 20 mg tablet 20 mg PO DAILY albuterol sulfate [Ventolin HFA] 90 mcg/actuation HFA aerosol inhaler 1 inh INHALATION BID Dulera 200-5 mcg/actuation HFA aerosol inhaler 1 inh INHALATION BID acetaminophen-codeine 300-30 mg Tablet 1 tab PO Q8H PRN (Reason: Pain level 4-10) Qty: 6 0RF acetaminophen-codeine 300-30 mg tablet 1 tab PO Q8H 2 Days Qty: 6 0RF Patient Comments: take 1 tablet by mouth every 8 hours if needed for pain for 7 days atorvastatin 80 mg tablet 80 mg PO QHS Patient Comments: TAKE 1 TABLET BY MOUTH AT BEDTIME aspirin 81 mg tablet,delayed release (DR/EC) 81 mg PO DAILY Patient Comments: TAKE 1 TABLET BY MOUTH DAILY metoprolol tartrate 25 mg tablet 25 mg PO DAILY Patient Comments: TAKE 1 TABLET BY MOUTH TWICE DAILY acetaminophen-codeine 300-30 mg tablet 1 tab PO Q6H PRN (Reason: pain) 3 Days Qty: 10 0RF Referrals / Follow Up: Samir Hay MD [Primary Care Provider] - Within 1 Month Disposition Disposition (needs filled in before D/C Order can be placed): Home, Self Care Charges/Coding Visit Charges Inpatient E&M: 40169 Disch Hosp >30min
== END 2022-12-24 17:42 | disposition home or self-care (01) | DRG 144 ==
LOC: ED 23:09 → PCU 12-22 03:07
PROVIDERS: Admitting Provider Internal Medicine; Emergency Provider Emergency Medicine; PCP Internal Medicine; Visit Provider Internal Medicine
DX: R09.02 Hypoxemia (principal); F25.9 Schizoaffective disorder, unspecified; Z99.81 Dependence on supplemental oxygen; J44.9 Chronic obstructive pulmonary disease, unspecified; I82.561 Chronic embolism and thrombosis of right calf muscular vein; I10 Essential (primary) hypertension; J45.20 Mild intermittent asthma, uncomplicated; I25.10 Atherosclerotic heart disease of native coronary artery without angina pectoris; E78.5 Hyperlipidemia, unspecified; I25.2 Old myocardial infarction; E87.6 Hypokalemia; E66.9 Obesity, unspecified; Z68.34 Body mass index [BMI] 34.0-34.9, adult; R79.1 Abnormal coagulation profile; Z91.148 Patient's other noncompliance with medication regimen for other reason; Z91.198 Patient's noncompliance with other medical treatment and regimen for other reason; Z59.02 Unsheltered homelessness; Z95.5 Presence of coronary angioplasty implant and graft; Z79.51 Long term (current) use of inhaled steroids; Z79.82 Long term (current) use of aspirin; Z79.899 Other long term (current) drug therapy; Z87.891 Personal history of nicotine dependence
CPT/HCPCS: 36415; 71045; 71275; 80048; 80076; 83735; 83880; 84100; 84443; 84484; 85025; 85379; 93005; 93306; 93970; 94640; 94668; 97161; 97166; 97530; 97535; 99285; Q9957; Q9967; A4216; C8929; J1940

== ENCOUNTER 2023-02-09 13:28 | Emergency (ER) | payer MEDICAID, SELFPAY ==
[2023-02-09 13:30] VITALS: BP 149/110; PULSE 68; RESP 18; TEMP 36.3; O2SAT 96; BMI 34.5
--- NOTE | 2023-02-09 14:01 | EDS_ITS ---
HPI History of Present Illness Chief Complaint: Back Informant: patient Narrative Narrative: 3 days of gradual onset soreness in his low back without any associated neurologic symptoms, or systemic symptoms such as fevers or chills. Yesterday he noticed a small amount of drainage coming from there. He was at latter day today and noticed that the pain was worse and hurts more to walk so he presents to the ER. He had surgery on his low back a year or more ago. [facility] Medical History Asthma CAD (coronary artery disease) History of COPD History of [place] (myocardial infarction) Homelessness HTN (hypertension) Hyperlipemia Lumbar stenosis Myocardial infarct MARGARITO (obstructive sleep apnea) Home Medications albuterol sulfate 90 mcg/actuation aerosol inhaler (Ventolin HFA) 1 inh inhalation BID SOB 11/09/21 [History Last Taken 11/09/21] lisinopril 20 mg tablet 20 mg PO DAILY bp 11/09/21 [History Last Taken 11/09/21] aspirin 81 mg tablet,delayed release 81 mg PO DAILY 04/12/22 [History Last Taken Unknown] atorvastatin 80 mg tablet 80 mg PO QHS 04/12/22 [History Last Taken Unknown] metoprolol tartrate 25 mg tablet 25 mg PO DAILY 04/12/22 [History Last Taken Unknown] budesonide 160 mcg-glycopyr 9 mcg-formot 4.8 mcg/actuation HFA inhaler (Breztri Aerosphere) 2 inh inhalation BID 02/09/23 [History Last Taken Unknown] rivaroxaban 15 mg (42)-20 mg (9) tablets in a starter pack (Xarelto DVT-PE Treatment 30-Day Starter) 1 tab PO DAILY 02/09/23 [History Last Taken Unknown] sulfamethoxazole 800 mg-trimethoprim 160 mg tablet 1 tab PO BID #14 TABLETS 02/09/23 [Rx Last Taken Unknown] Allergy/AdvReac Type Severity Reaction Status Date / Time cabbage Allergy can not Verified 02/09/23 13:30 swallow lettuce Allergy can not Verified 02/09/23 13:30 swallow onion Allergy Vomiting Verified 02/09/23 13:30 peanut Allergy Anaphylaxis Verified 02/09/23 13:30 garlic AdvReac Mild Abd Verified 02/09/23 13:30 cramps/diarrhea Family History Father No problems noted. Family History no significant family his Surgical History H/O hernia repair Stented coronary artery Social History housing: homeless other: Patient is currently living out of his car and is supposed to be on oxygen Smoking Status: Former smoker alcohol intake: never substance use type: does not use ROS ROS ED Constitutional Constitutional ED: Denies chills or fever(s) Gastrointestinal Gastrointestinal: Denies abdominal pain, constipation, fecal incontinence, nausea or vomiting Genitourinary Genitourinary ED: Reports other Details: no urinary retention ; Denies abdominal discomfort or urinary incontinence Musculoskeletal Musculoskeletal: Reports as per HPI and back pain; Denies neck pain Integumentary Reports abscess and wounds; Denies rash Neurologic Neurologic: Denies headache(s), paresthesias or weakness EXAM Physical Exam Const Vital Signs: 02/09/23 13:30 Temperature 97.4 F L Temperature Source Temporal Pulse Rate 68 Respiratory Rate 18 Blood Pressure 149/110 H Blood Pressure Mean 123 Pulse Ox 96 Oxygen Delivery Method Room Air Positive well nourished and well developed General Appearance ED: well developed and NAD HEENT Negative for trauma or tenderness Eyes PERRL and EOMs intact bilaterally Neck full ROM and supple GI normal to inspection, nondistended, normoactive bowel sounds, soft to palpation and non-tender Back/Spine Back/Spine Narrative: Well-healed surgical incision midline lumbosacral spine, there is a very small superficial abscess with mild amount of surrounding erythema within the mid- caudal aspect of the incision, this is not dehiscence it is a small abscess. There is small amount of purulent material easily expressible from it, and it is not fluctuant. It is tender. Lumbar Spine / Lower Back: ROM limited, paraspinal muscle tenderness and straight leg raise negative bilaterally; Negative for lumbar spinal tenderness Extremity normal to inspection, full ROM and no pedal edema Neuro oriented x3 and no sensory deficits noted Sensorium / Orientation: alert Motor Exam: strength 5/5 throughout and clonus absent Deep Tendon Reflexes: Rt Patellar (L4): 2+, Lt Patellar (L4): 2+, Rt Ankle (S1): 2+ and Lt Ankle (S1): 2+ Deep Tendon Reflexes Back: Rt Patellar (L4): 2+, Lt Patellar (L4): 2+, Rt Ankle (S1): 2+ and Lt Ankle (S1): 2+ Plantar Reflex: Downgoing: bilateral Psych mental status grossly normal and thought process normal Skin Skin Narrative: Small abscess superficial in the skin of the low back incision see above MDM MDM MDM Narrative Medical decision making narrative: There are 2 small openings over this abscess, I was able to express purulent material from both of them, and I do not think it will benefit the patient more to perform formal incision and the loculation/drainage. I advised him with regards to soaks, dressing changes, and prescribed him Bactrim and advised close outpatient follow-up with his doctor. Discharge Plan Triage Chief Complaint: Back ED Provider: Tyler Desir Dx/Rx/DC Orders Clinical Impression: Cutaneous abscess of back excluding buttocks Instructions: ED Abscess Antibiotic Treatment Only Prescriptions: New sulfamethoxazole-trimethoprim [sulfamethoxazole-trimethoprim] 800-160 mg tablet 1 tab PO BID Qty: 14 0RF No Action lisinopril 20 mg tablet 20 mg PO DAILY albuterol sulfate [Ventolin HFA] 90 mcg/actuation HFA aerosol inhaler 1 inh INHALATION BID atorvastatin 80 mg tablet 80 mg PO QHS Patient Comments: TAKE 1 TABLET BY MOUTH AT BEDTIME aspirin 81 mg tablet,delayed release (DR/EC) 81 mg PO DAILY Patient Comments: TAKE 1 TABLET BY MOUTH DAILY metoprolol tartrate 25 mg tablet 25 mg PO DAILY Patient Comments: TAKE 1 TABLET BY MOUTH TWICE DAILY Xarelto DVT-PE Treat 30d Start 15 mg (42)- 20 mg (9) tablets,dose pack 1 tab PO DAILY Patient Comments: TAKE ONE 15MG TABLET BY MOUTH TWICE DAILY WITH FOOD FOR 21 DAYS, THEN TAKE ONE 20MG TABLET ONCE DAILY WITH FOOD FOR 9 DAYS Breztri Aerosphere 160-9-4.8 mcg/actuation HFA aerosol inhaler 2 inh INHALATION BID Patient Comments: INHALE TWO (2) PUFFS BY MOUTH TWICE DAILY INSTRUCTED Primary Care Provider: Samir Hay Referrals: Samir Hay MD [Primary Care Provider] - 3-5 Days if not improving Activity Restrictions/Additional Instructions: For the next 2 nights, soaking your low back in bathtub with warm-hot soapy water would be a good idea, patting dry and placing a clean dressing afterwards with antibiotic ointment on it to the affected area. Change the dressing 2-3 times per day for the first couple days then once thereafter until no more drainage on it. Disposition Disposition: Home, Self Care
[2023-02-09] MEDS: Smz/Tmp Ds Tablet 1 TABLET PO (14:22)
== END 2023-02-09 14:23 | disposition home or self-care (01) ==
PROVIDERS: Emergency Provider Emergency Medicine; PCP Internal Medicine; Visit Provider Emergency Medicine
DX: L02.91 Cutaneous abscess, unspecified (principal); J44.9 Chronic obstructive pulmonary disease, unspecified; I25.10 Atherosclerotic heart disease of native coronary artery without angina pectoris; E78.5 Hyperlipidemia, unspecified; Z87.891 Personal history of nicotine dependence; I10 Essential (primary) hypertension; Z59.02 Unsheltered homelessness; G47.33 Obstructive sleep apnea (adult) (pediatric); Z79.899 Other long term (current) drug therapy; Z79.82 Long term (current) use of aspirin; Z79.01 Long term (current) use of anticoagulants
CPT/HCPCS: 99282

== ENCOUNTER 2023-06-15 02:14 | Emergency (ER) | payer MEDICAID, SELFPAY ==
[2023-06-15 02:17] VITALS: BP 170/101; PULSE 79; RESP 24; TEMP 36.4; O2SAT 87; BMI 32.6
[2023-06-15 02:23] VITALS: O2SAT 93
--- NOTE | 2023-06-15 03:16 | ED.VIS.DYS ---
HPI History of Present Illness Chief Complaint: Shortness of Breath Informant: patient Onset/Context/Timing Onset: Yesterday Context: gradual Timing: Continuous Quality: Positive for Dyspnea on exertion Worsened by: Exertion Relieved by: Rest Associated Symptoms cough, rhinorrhea, subjective, chills, white sputum and green sputum; Negative for ear pain, fever, sore throat, clear sputum or yellow sputum Chest Pain: Positive for None and Dull Narrative Narrative: Patient presents with shortness of breath that began yesterday. Patient states it came on gradually. Patient states it is worse with any exertion. Patient states it is better with rest. Patient was to a cough with some white and green sputum. Patient admits to some rhinorrhea. Patient admits to some subjective chills. Patient also admits to some mild substernal chest pain. Patient also states his feet feel like they are frozen. Patient states this has been constant for the past week. Patient states he saw his primary care physician for this who diagnosed him with arthritis. Patient states he does not believe that his pain is due to arthritis in his feet. PE Risk Factors: Negative for Cancer, OCP + Smoking + > 35, Prior DVT or PE, Recent immobilization, Recent surgery or Recent travel [facility] Medical History Asthma CAD (coronary artery disease) History of COPD History of [place] (myocardial infarction) Homelessness HTN (hypertension) Hyperlipemia Lumbar stenosis Myocardial infarct MARGARITO (obstructive sleep apnea) Home Medications albuterol sulfate 90 mcg/actuation aerosol inhaler (Ventolin HFA) 1 inh inhalation BID SOB 11/09/21 [History Last Taken 11/09/21] lisinopril 20 mg tablet 20 mg PO DAILY bp 11/09/21 [History Last Taken 11/09/21] aspirin 81 mg tablet,delayed release 81 mg PO DAILY 04/12/22 [History Last Taken Unknown] atorvastatin 80 mg tablet 80 mg PO QHS 04/12/22 [History Last Taken Unknown] metoprolol tartrate 25 mg tablet 25 mg PO DAILY 04/12/22 [History Last Taken Unknown] budesonide 160 mcg-glycopyr 9 mcg-formot 4.8 mcg/actuation HFA inhaler (Breztri Aerosphere) 2 inh inhalation BID 02/09/23 [History Last Taken Unknown] rivaroxaban 15 mg (42)-20 mg (9) tablets in a starter pack (Xarelto DVT-PE Treatment 30-Day Starter) 1 tab PO DAILY 02/09/23 [History Last Taken Unknown] sulfamethoxazole 800 mg-trimethoprim 160 mg tablet 1 tab PO BID #14 TABLETS 02/09/23 [Rx Last Taken Unknown] Allergy/AdvReac Type Severity Reaction Status Date / Time cabbage Allergy can not Verified 02/09/23 13:30 swallow lettuce Allergy can not Verified 02/09/23 13:30 swallow onion Allergy Vomiting Verified 02/09/23 13:30 peanut Allergy Anaphylaxis Verified 02/09/23 13:30 garlic AdvReac Mild Abd Verified 02/09/23 13:30 cramps/diarrhea Family History Father No problems noted. Family History no significant family his Surgical History H/O hernia repair Stented coronary artery Social History housing: homeless other: Patient is currently living out of his car and is supposed to be on oxygen Smoking Status: Former smoker alcohol intake: never substance use type: does not use ROS ROS ED Constitutional Constitutional ED: Reports chills; Denies fever(s) Eyes Eyes: Reports blurry vision; Denies change in vision ENT ENT ED: Reports rhinorrhea; Denies sore throat Cardiovascular Cardiovascular: Reports chest pain; Denies palpitations Respiratory/Chest Respiratory/Chest: Reports cough and dyspnea Gastrointestinal Gastrointestinal: Reports vomiting; Denies nausea Genitourinary Genitourinary ED: Denies dysuria or hematuria Musculoskeletal Musculoskeletal: Reports back pain; Denies neck pain Integumentary Denies abscess or rash Neurologic Neurologic: Denies headache(s) or weakness Allergic/Immunologic Allergic/Immunologic ED: Denies mouth swelling or urticaria EXAM Physical Exam Const Vital Signs: 06/15/23 02:17 06/15/23 02:22 06/15/23 02:23 Temperature 97.6 F L Temperature Source Oral Pulse Rate 79 Respiratory Rate 24 H Respiratory Effort Short of Breath Respiratory Depth Shallow Respiratory Pattern Tachypnea Blood Pressure 170/101 H Blood Pressure Mean 124 Pulse Ox 87 93 Oxygen Delivery Method Room Air Room Air 06/15/23 03:33 06/15/23 03:35 06/15/23 04:14 Temperature Temperature Source Pulse Rate 66 62 Respiratory Rate 21 H 20 H Respiratory Effort Respiratory Depth Respiratory Pattern Normal Blood Pressure 133/81 H Blood Pressure Mean 98 Pulse Ox 97 Oxygen Delivery Method Room Air Room Air Positive well nourished and well developed General Appearance ED: well developed and NAD HEENT Reports moist mucous membranes Neck supple and no JVD Resp normal respiratory effort Auscultation: wheezes expiratory wheezes and throughout Cardio regular rate and regular rhythm GI non-tender and non-distended Palpation: soft Extremity Extremity Narrative: There is 1+ edema of the lower extremities bilaterally. Pedal pulses are equal bilaterally. Sensation was intact to light touch in all digits. Capillary refill was less than 2 seconds in all digits. There is full range of motion of the lower extremities bilaterally. Neuro oriented x3, CN's II-XII intact bilaterally and no sensory deficits noted [place] Coma Scale: document GCS findings Spontaneous Obeys Commands Oriented 15 Sensorium / Orientation: alert Speech: speech normal Motor Exam: strength 5/5 throughout Psych mental status grossly normal MDM MDM MDM Narrative Medical decision making narrative: Differential diagnosis includes asthma exacerbation, COPD exacerbation, pneumonia, pneumothorax, cardiac dysrhythmia, cardiac ischemia, congestive heart failure, and anxiety. Chest x-ray will be obtained to assess for pneumonia, congestive heart failure, and pneumothorax. EKG will be obtained to assess for cardiac dysrhythmia and cardiac ischemia. CBC will be obtained to assess for leukocytosis and anemia. Basic metabolic profile will be obtained to assess for electrolyte abnormality and renal function. High-sensitivity troponin will be obtained to assess for cardiac ischemia. 2-hour repeat high-sensitivity troponin will be obtained to assess for ongoing cardiac ischemia. BNP will be obtained to assess for congestive heart failure. Lab Data Attestation: I reviewed the patient's lab results. Lab results narrative: CBC was reviewed and was within normal limits. Basic metabolic profile was reviewed and was within normal limits. High-sensitivity troponin was reviewed and was normal at 16. BNP was reviewed and was normal at 30.8. 2-hour repeat high-sensitivity troponin was reviewed and was normal at 18. COVID-19 PCR was reviewed and was negative. Influenza PCR was reviewed and was negative for influenza A and influenza B. RSV PCR was reviewed and was negative. Labs: Laboratory Results - last 24 hr 06/15/23 06/15/23 03:30 05:32 WBC 7.1 RBC 4.77 Hgb 14.6 Hct 46.8 MCV 98.1 H MCH 30.6 MCHC 31.2 L RDW Std Deviation 50.3 H RDW Coeff of Leticia 13.9 Plt Count 245 MPV 9.8 Immature Gran % (Auto) 0.400 Neut % (Auto) 62.0 Lymph % (Auto) 15.9 L Mchenry % (Auto) 17.6 H Eos % (Auto) 3.1 Baso % (Auto) 1.0 Absolute Neuts (auto) 4.4 Absolute Lymphs (auto) 1.13 Nucleated RBC % 0 Sodium 143 Potassium 3.9 Chloride 108 H Carbon Dioxide 33.0 H Anion Gap 2 L BUN 16 Creatinine 0.94 Estim Creat Clear Calc 93.85 Est GFR (MDRD) Af Amer 105 Est GFR (MDRD) Non-Af 87 BUN/Creatinine Ratio 16.9 Glucose 100 Calcium 8.9 Troponin I High Sens 16 18 B-Natriuretic Peptide 30.8 Radiography Chest X-Ray - ED: 2 View, Read by ED Physician, Read by Radiologist and No Acute Disease Diagnostic Testing: Clinical Impression(s) from Imaging Studies Chest X-Ray 06/15/23 03:41 IMPRESSION: No acute pulmonary disease. Electronically Signed: Tyler Carbajal MD at 4:35 EST , [place] and lateral chest x-ray was obtained. There are 2 views. On my independent interpretation, lung watkins are clear. There is normal cardiac silhouette. Bony thorax is normal. There is no acute process noted. Radiologist also interpreted the x-ray and agrees. EKG Initial EKG: Attestation: I personally reviewed and interpreted this EKG as follows: Interpretation: Sinus Rhythm (64) and No Acute Injury Pattern Comments: EKG was obtained. On my independent interpretation, it showed a normal sinus rhythm with a rate of 64. AL interval, QRS interval, and QTc intervals were all normal. [place] was normal. There are no acute ST or T wave changes. Prior EKG tracings: available for review Prior: Unchanged (12/22/2022) Treatment and Re-Evaluation :: Patient was given a DuoNeb aerosol here. Patient was advised of his findings. Patient has a HEART score of 3. Patient was advised that this is low risk for acute cardiac event. Patient is resting comfortably on reevaluation. Patient was instructed to follow-up with his primary care physician in 3 to 5 days. Patient was instructed to return if worse in any way. Patient understood and was agreeable with the plan. All questions were answered. Discharge Plan Triage Chief Complaint: Shortness of Breath ED Provider: Arley Alvarado Dx/Rx/DC Orders Clinical Impression: Exertional dyspnea, Asthma exacerbation in COPD Instructions: ED COPD Flare, ED Dyspnea Prescriptions: No Action lisinopril 20 mg tablet 20 mg PO DAILY albuterol sulfate [Ventolin HFA] 90 mcg/actuation HFA aerosol inhaler 1 inh INHALATION BID atorvastatin 80 mg tablet 80 mg PO QHS Patient Comments: TAKE 1 TABLET BY MOUTH AT BEDTIME aspirin 81 mg tablet,delayed release (DR/EC) 81 mg PO DAILY Patient Comments: TAKE 1 TABLET BY MOUTH DAILY metoprolol tartrate 25 mg tablet 25 mg PO DAILY Patient Comments: TAKE 1 TABLET BY MOUTH TWICE DAILY Xarelto DVT-PE Treat 30d Start 15 mg (42)- 20 mg (9) tablets,dose pack 1 tab PO DAILY Patient Comments: TAKE ONE 15MG TABLET BY MOUTH TWICE DAILY WITH FOOD FOR 21 DAYS, THEN TAKE ONE 20MG TABLET ONCE DAILY WITH FOOD FOR 9 DAYS Breztri Aerosphere 160-9-4.8 mcg/actuation HFA aerosol inhaler 2 inh INHALATION BID Patient Comments: INHALE TWO (2) PUFFS BY MOUTH TWICE DAILY INSTRUCTED sulfamethoxazole-trimethoprim [sulfamethoxazole-trimethoprim] 800-160 mg tablet 1 tab PO BID Qty: 14 0RF Primary Care Provider: Samir Hay Referrals: Samir Hay MD [Primary Care Provider] - 3-5 Days Disposition Disposition: Home, Self Care
--- NOTE | 2023-06-15 03:22 | EKG12_ITS ---
Test Reason : SOB Blood Pressure : / mmHG Vent. Rate : 064 BPM Atrial Rate : 064 BPM P-R Int : 152 ms QRS Dur : 086 ms QT Int : 422 ms P-R-T Axes : 073 086 067 degrees QTc Int : 435 ms Normal sinus rhythm Normal ECG Confirmed by SAY FERRERA, JACOB ([id number]), brands editor WIN ARZATE ([id number]) on 06/16/2023 10:09:41 AM Referred By: ANUP Confirmed By:JACOB DEAL MD
[2023-06-15 03:35] VITALS: PULSE 66; RESP 21
[2023-06-15] MEDS: Ipratropium/Albuterol Sulfate 3 ML AMPUL.NEB INHALATION (03:35)
[2023-06-15 03:39] LABS: Absolute Lymphocyte Count 1.13 X10^3/uL (0.83-4.51); Absolute Neutrophil Count 4.4 X10^3/uL (2.0-7.7); Basophil# 0.07 X10^3/uL; Eosinophil# 0.22 X10^3/uL; Eosinophils% 3.1 % (0-5); Hematocrit 46.8 % (40-54); Hemoglobin 14.6 g/dL (13.0-16.5); Lymphocyte # 1.13 X10^3/ul (0.83-4.51); Lymphocyte % 15.9 % (19-41); Mean Corp Hgb Conc 31.2 g/dL (32-36); Mean Corpuscular Hgb 30.6 pg (27.0-32.0); Mean Corpuscular Volume 98.1 fL (80-94); Mean Platelet Vol. 9.8 fl (6.2-12.0); Monocyte# 1.25 X10^3/uL; Monocyte% 17.6 % (0-10); NRBC Flagged by Analyzer 0 % (0-5); Platelet Count 245 K/mm3 (150-450); RBC Distribution Width CV 13.9 % (11.6-14.6); RBC Distribution Width SD 50.3 fl (35.1-43.9); Red Blood Count 4.77 M/mm3 (4.6-6.2); White Blood Count 7.1 K/mm3 (4.4-11.0)
--- NOTE | 2023-06-15 03:41 | RAD_ITS ---
INDICATION: Shortness of breath EXAMINATION: Frontal and lateral views of the chest. COMPARISON: Chest x-ray December 21, 2022. FINDINGS: Frontal and lateral views of the chest were obtained. The cardiac silhouette is not enlarged. Emphysematous changes. No confluent airspace disease. No pleural effusion or pneumothorax. RAD/Chest PA and Lateral IMPRESSION: No acute pulmonary disease. Electronically Signed: Tyler Carbajal MD at 4:35 EST ,
[2023-06-15 03:55] LABS: BNP,B-Type NATRIURETIC PEPTIDE 30.8 pg/mL (0-100)
[2023-06-15 04:00] LABS: Anion Gap 2 (5-15); BUN 16 mg/dL (7-18); BUN/Creat Ratio 16.9 RATIO (10-20); Calcium,Total 8.9 mg/dL (8.5-10.1); Chloride 108 mmol/L (98-107); Creatinine, Serum 0.94 mg/dL (0.70-1.30); EST Glomerular Filtration Rate 87 mL/min (>60); Est Glom Filt Rate - Afr Amer 105 mL/min (>60); Estimated Creatinine Clearance 93.85 ml/min; Glucose 100 mg/dL (74-106); Potassium 3.9 mmol/L (3.5-5.1); Sodium Level 143 mmol/L (136-145); Troponin-I HS (w/2H Reflex) 16 pg/mL (3.0-78.0)
[2023-06-15 04:14] VITALS: BP 133/81; PULSE 62; RESP 20; O2SAT 97
[2023-06-15 05:34] LABS: Reflex Troponin-HS? (from REC) Y
[2023-06-15 05:55] LABS: Troponin-I HS 18 pg/mL (3.0-78.0)
[2023-06-15 06:32] VITALS: BP 123/70; PULSE 70; RESP 16; TEMP 36.4; O2SAT 96
== END 2023-06-15 06:37 | disposition home or self-care (01) ==
PROVIDERS: Emergency Provider Emergency Medicine; PCP Internal Medicine; Visit Provider Emergency Medicine
DX: J44.1 Chronic obstructive pulmonary disease with (acute) exacerbation (principal); I25.10 Atherosclerotic heart disease of native coronary artery without angina pectoris; I25.2 Old myocardial infarction; I10 Essential (primary) hypertension; E78.5 Hyperlipidemia, unspecified; Z59.02 Unsheltered homelessness; Z79.51 Long term (current) use of inhaled steroids; Z79.82 Long term (current) use of aspirin; Z79.899 Other long term (current) drug therapy; Z87.891 Personal history of nicotine dependence
CPT/HCPCS: 71046; 80048; 83880; 84484; 85025; 87631; 93005; 94640; 99284; A4216

== ENCOUNTER 2023-07-26 22:38 | Emergency (ER) | payer MEDICAID, SELFPAY ==
[2023-07-26 22:38] VITALS: BP 106/91; PULSE 60; RESP 15; TEMP 36.1; O2SAT 95
[2023-07-27 00:28] LABS: Bacteria 0 SEEN /hpf (None Seen); Mucous, Urine 0 SEEN /hpf (<or=2+); Squamous Epithelial Cells - UA 0 SEEN /hpf (0-5)
[2023-07-27 00:32] LABS: Color, Urine Yellow (Yellow); Glucose, Dipstick Normal (Normal); Ketone-Dipstick Negative (Negative); Leukocyte Esterase-Dipstick 25 /ul (Negative); Nitrite-Dipstick Negative (Negative); Occult Blood-Urine 250 /ul (Negative); Protein-Dipstick 15 mg/dl (Negative); Urine Bilirubin Dipstick Negative (Negative); Urine Clarity Clear (Clear); Urine Urobilinogen Normal (Normal)
[2023-07-27 00:37] LABS: Absolute Lymphocyte Count 1.82 X10^3/uL (0.83-4.51); Absolute Neutrophil Count 3.4 X10^3/uL (2.0-7.7); Basophil# 0.12 X10^3/uL; Basophil% 1.7 % (0-1); Eosinophil# 0.33 X10^3/uL; Eosinophils% 4.8 % (0-5); Hematocrit 45.6 % (40-54); Hemoglobin 14.3 g/dL (13.0-16.5); Lymphocyte # 1.82 X10^3/ul (0.83-4.51); Lymphocyte % 26.3 % (19-41); Mean Corp Hgb Conc 31.4 g/dL (32-36); Mean Corpuscular Volume 95.8 fL (80-94); Mean Platelet Vol. 10.5 fl (6.2-12.0); Monocyte# 1.24 X10^3/uL; Monocyte% 17.9 % (0-10); NRBC Flagged by Analyzer 0 % (0-5); Platelet Count 260 K/mm3 (150-450); RBC Distribution Width CV 13.8 % (11.6-14.6); RBC Distribution Width SD 48.9 fl (35.1-43.9); Red Blood Count 4.76 M/mm3 (4.6-6.2); White Blood Count 6.9 K/mm3 (4.4-11.0)
[2023-07-27 00:38] VITALS: BP 137/84; PULSE 60; RESP 18; O2SAT 96
[2023-07-27 00:40] LABS: International Normalized Ratio 1.8; Prothrombin Time (Protime)PT. 20.7 SECONDS (11.7-14.9)
[2023-07-27 00:41] LABS: Partial Thromboplast Time 35.4 Seconds (24.1-36.2)
[2023-07-27] MEDS: Lidocaine Jelly 2% 20 ML Syringe (URO-JET) 1 APPLIC TOPICAL (00:44)
[2023-07-27 00:45] LABS: Anion Gap 4 (5-15); BUN 15 mg/dL (7-18); BUN/Creat Ratio 14.3 RATIO (10-20); Calcium,Total 8.9 mg/dL (8.5-10.1); Chloride 107 mmol/L (98-107); Creatinine, Serum 1.05 mg/dL (0.70-1.30); EST Glomerular Filtration Rate 77 mL/min (>60); Est Glom Filt Rate - Afr Amer 93 mL/min (>60); Glucose 93 mg/dL (74-106); Potassium 3.9 mmol/L (3.5-5.1); Sodium Level 141 mmol/L (136-145)
[2023-07-27 00:51] LABS: Red Blood Cells-Urine 5-10 SEEN /hpf (0-5); White Blood Cells 0-5 SEEN /hpf (0-5)
--- NOTE | 2023-07-27 01:28 | EX.ED.DYSGE1 ---
HPI History of Present Illness Chief Complaint: Complaint Informant: patient Narrative Narrative: Patient is a 58-year-old male with past medical history of hypertension hyperlipidemia COPD and cardiovascular disease currently on Xarelto. He states that this morning when he awoke and urinated it was slightly blood-tinged in nature. He states he did not have much concern for this but later in the day he started having gross blood with urination and oozing from his penis. He denies any trauma. He denies any back pain or history of prostate issues. He states that as symptoms have worsened throughout the day this concerned him and therefore he comes in for evaluation [facility] Medical History Asthma CAD (coronary artery disease) History of COPD History of [place] (myocardial infarction) Homelessness HTN (hypertension) Hyperlipemia Lumbar stenosis Myocardial infarct MARGARITO (obstructive sleep apnea) Home Medications albuterol sulfate 90 mcg/actuation aerosol inhaler (Ventolin HFA) 1 inh inhalation BID SOB 11/09/21 [History Last Taken 11/09/21] lisinopril 20 mg tablet 20 mg PO DAILY bp 11/09/21 [History Last Taken 11/09/21] aspirin 81 mg tablet,delayed release 81 mg PO DAILY 04/12/22 [History Last Taken Unknown] atorvastatin 80 mg tablet 80 mg PO QHS 04/12/22 [History Last Taken Unknown] metoprolol tartrate 25 mg tablet 25 mg PO DAILY 04/12/22 [History Last Taken Unknown] budesonide 160 mcg-glycopyr 9 mcg-formot 4.8 mcg/actuation HFA inhaler (Breztri Aerosphere) 2 inh inhalation BID 02/09/23 [History Last Taken Unknown] rivaroxaban 15 mg (42)-20 mg (9) tablets in a starter pack (Xarelto DVT-PE Treatment 30-Day Starter) 1 tab PO DAILY 02/09/23 [History Last Taken Unknown] sulfamethoxazole 800 mg-trimethoprim 160 mg tablet 1 tab PO BID #14 TABLETS 02/09/23 [Rx Last Taken Unknown] Allergy/AdvReac Type Severity Reaction Status Date / Time cabbage Allergy can not Verified 07/26/23 22:44 swallow lettuce Allergy can not Verified 07/26/23 22:44 swallow onion Allergy Vomiting Verified 07/26/23 22:44 peanut Allergy Anaphylaxis Verified 07/26/23 22:44 garlic AdvReac Mild Abd Verified 07/26/23 22:44 cramps/diarrhea Family History Father No problems noted. Family History no significant family his Surgical History H/O hernia repair Stented coronary artery Social History housing: homeless other: Patient is currently living out of his car and is supposed to be on oxygen Smoking Status: Former smoker alcohol intake: never substance use type: does not use ROS ROS ED Constitutional Constitutional ED: Denies chills or fever(s) ENT ENT ED: Denies sore throat Cardiovascular Cardiovascular: Denies chest pain Respiratory/Chest Respiratory/Chest: Denies cough or dyspnea Gastrointestinal Gastrointestinal: Denies abdominal pain, diarrhea, nausea or vomiting Genitourinary Genitourinary ED: Reports hematuria; Denies dysuria or urinary frequency Musculoskeletal Musculoskeletal: Denies back pain or myalgias Integumentary Denies rash Neurologic Neurologic: Denies headache(s) Hematologic/Lymphatic Hematologic/Lymphatic: Reports easy bleeding and easy bruising EXAM Physical Exam Const Vital Signs: 07/26/23 22:38 07/27/23 00:38 07/27/23 02:00 Temperature 97.0 F L Temperature Source Temporal Pulse Rate 60 60 65 Respiratory Rate 15 18 15 Blood Pressure 106/91 H 137/84 H 124/74 H Blood Pressure Mean 96 101 90 Pulse Ox 95 96 95 Oxygen Delivery Method Room Air Room Air Room Air 07/27/23 02:24 Temperature 98.1 F Temperature Source Pulse Rate 65 Respiratory Rate 15 Blood Pressure 124/74 H Blood Pressure Mean 90 Pulse Ox 95 Oxygen Delivery Method Positive well nourished and well developed General Appearance ED: well developed; Negative for pallor HEENT HEENT Narrative: Normocephalic atraumatic Eyes PERRL and EOMs intact bilaterally General Eye ED: Negative for pale conjunctiva or scleral icterus Neck supple Resp normal respiratory effort Resp Narrative: Breath sounds are diminished throughout with faint expiratory wheeze consistent with history of COPD but no nasal flaring retractions tachypnea or accessory muscle use Cardio regular rate and regular rhythm GI normal to inspection, nondistended, normoactive bowel sounds, non-tender, non-distended and no masses GI Narrative: Abdomen is soft nontender nondistended with normal active bowel sounds. No voluntary guarding or rigidity or pulsatile mass. No organomegaly noted Auscultation: normoactive bowel sounds Palpation: soft Narrative: Circumcised male with dried blood at the urethral meatus. No scrotal swelling or masses noted. No soft tissue changes to suggest Sosa's gangrene Back/Spine no CVA tenderness Extremity normal to inspection Neuro oriented x3, CN's II-XII intact bilaterally and no sensory deficits noted Sensorium / Orientation: alert Motor Exam: strength 5/5 throughout Psych mental status grossly normal Skin no rashes or lesions noted General Skin Exam: Negative for jaundice or pallor MDM MDM MDM Narrative Medical decision making narrative: Patient presented to the ER with stable vitals but reported gross hematuria. Differential diagnosis is for spontaneous internal bleeding secondary to Xarelto use versus urinary tract infection versus kidney stone versus urinary retention versus acute kidney injury. Secondary to his basic blood work was obtained. Labs revealed no white count as well as a stable H&H and normal platelet volume. Kidney function was normal as well going against acute kidney injury and there is no clinically significant electrolyte abnormality. Urine also showed no sign of infection. A Johnston catheter was placed as there was concern the patient may need continuous bladder irrigation. But after passage of a few small clots urine became clear yellow and there was no further bleeding. Therefore at this time his vitals are stable he does not have infectious process or signs of acute kidney injury and the bleeding has resolved there is no need for further workup or admission to the hospital and this can be followed on an outpatient basis History & Record Review Discussion w/independent historian: Patient Lab Data Attestation: I reviewed the patient's lab results. Labs: Laboratory Results - last 24 hr 07/27/23 00:20 WBC 6.9 RBC 4.76 Hgb 14.3 Hct 45.6 MCV 95.8 H MCH 30.0 MCHC 31.4 L RDW Std Deviation 48.9 H RDW Coeff of Leticia 13.8 Plt Count 260 MPV 10.5 Immature Gran % (Auto) 0.300 Neut % (Auto) 49.0 Lymph % (Auto) 26.3 [place] % (Auto) 17.9 H Eos % (Auto) 4.8 Baso % (Auto) 1.7 H Absolute Neuts (auto) 3.4 Absolute Lymphs (auto) 1.82 Nucleated RBC % 0 PT 20.7 H INR 1.8 APTT 35.4 Sodium 141 Potassium 3.9 Chloride 107 Carbon Dioxide 30.0 Anion Gap 4 L BUN 15 Creatinine 1.05 Est GFR (MDRD) Af Amer 93 Est GFR (MDRD) Non-Af 77 BUN/Creatinine Ratio 14.3 Glucose 93 Calcium 8.9 Urine Color Yellow Urine Clarity Clear Urine pH 6.0 Ur Specific [place] 1.010 Urine Protein 15 H Urine Glucose (UA) Normal Urine Ketones Negative Urine Occult Blood 250 H Urine Nitrite Negative Urine Bilirubin Negative Urine Urobilinogen Normal Ur Leukocyte Esterase 25 H Urine RBC 5-10 SEEN Urine WBC 0-5 SEEN Ur Squamous Epith Cells 0 SEEN Urine Bacteria 0 SEEN Urine Mucus 0 SEEN Discharge Plan Triage Chief Complaint: Complaint ED Provider: Domenic Senior Dx/Rx/DC Orders Clinical Impression: Hematuria, Coronary artery disease, 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, Hypertension Instructions: ED Hematuria Prescriptions: No Action lisinopril 20 mg tablet 20 mg PO DAILY albuterol sulfate [Ventolin HFA] 90 mcg/actuation HFA aerosol inhaler 1 inh INHALATION BID atorvastatin 80 mg tablet 80 mg PO QHS Patient Comments: TAKE 1 TABLET BY MOUTH AT BEDTIME aspirin 81 mg tablet,delayed release (DR/EC) 81 mg PO DAILY Patient Comments: TAKE 1 TABLET BY MOUTH DAILY metoprolol tartrate 25 mg tablet 25 mg PO DAILY Patient Comments: TAKE 1 TABLET BY MOUTH TWICE DAILY Xarelto DVT-PE Treat 30d Start 15 mg (42)- 20 mg (9) tablets,dose pack 1 tab PO DAILY Patient Comments: TAKE ONE 15MG TABLET BY MOUTH TWICE DAILY WITH FOOD FOR 21 DAYS, THEN TAKE ONE 20MG TABLET ONCE DAILY WITH FOOD FOR 9 DAYS Breztri Aerosphere 160-9-4.8 mcg/actuation HFA aerosol inhaler 2 inh INHALATION BID Patient Comments: INHALE TWO (2) PUFFS BY MOUTH TWICE DAILY INSTRUCTED sulfamethoxazole-trimethoprim [sulfamethoxazole-trimethoprim] 800-160 mg tablet 1 tab PO BID Qty: 14 0RF Primary Care Provider: Samir Hay Referrals: Juan Carlos Amezquita MD [Med Staff - Active Staff] - Samir Hay MD [Primary Care Provider] - Activity Restrictions/Additional Instructions: Your blood work shows no sign of kidney damage and normal blood volume and your urine shows no sign of infection indicating that your hematuria/blood in urine is most likely related to your Xarelto/blood thinner. Talk to your doctor about stopping this medication and return to the ER should you have any further concerns. Follow-up with urology for repeat evaluation Disposition Disposition: Home, Self Care Discharge Date/Time: 07/27/23 02:26
[2023-07-27 02:00] VITALS: BP 124/74; PULSE 65; RESP 15; O2SAT 95
[2023-07-27 02:24] VITALS: BP 124/74; PULSE 65; RESP 15; TEMP 36.7; O2SAT 95
== END 2023-07-27 02:26 | disposition home or self-care (01) ==
PROVIDERS: Emergency Provider Emergency Medicine; PCP Internal Medicine; Visit Provider Emergency Medicine
DX: R31.0 Gross hematuria (principal); J44.9 Chronic obstructive pulmonary disease, unspecified; I25.10 Atherosclerotic heart disease of native coronary artery without angina pectoris; Z59.02 Unsheltered homelessness; I10 Essential (primary) hypertension; I25.2 Old myocardial infarction; Z95.5 Presence of coronary angioplasty implant and graft; Z79.01 Long term (current) use of anticoagulants; Z79.51 Long term (current) use of inhaled steroids; Z79.82 Long term (current) use of aspirin; Z79.899 Other long term (current) drug therapy; Z87.891 Personal history of nicotine dependence
CPT/HCPCS: 51702; 80048; 81001; 85025; 85610; 85730; 99283; A4216

== ENCOUNTER 2023-10-20 16:23 | Emergency (ER) | payer MEDICAID, SELFPAY ==
[2023-10-20 16:24] VITALS: BP 110/66; PULSE 89; RESP 14; TEMP 36.1; O2SAT 94; BMI 31.4
--- NOTE | 2023-10-20 16:29 | ED.RN ---
DISCUSSED SX WITH DR. SAAB. WILL SEE WHEN PT IS IN A ROOM.
[2023-10-20 17:08] VITALS: BMI 31.6
[2023-10-20] MEDS: 0.9% Normal Saline (1000mL) 1,000 ML 1000 ML IV ×2 (17:33→18:36)
[2023-10-20 17:44] LABS: Absolute Lymphocyte Count 1.99 X10^3/uL (0.83-4.51); Basophil# 0.15 X10^3/uL; Basophil% 1.2 % (0-1); Eosinophils% 3.3 % (0-5); Hematocrit 49.4 % (40-54); Hemoglobin 15.3 g/dL (13.0-16.5); Lymphocyte # 1.99 X10^3/ul (0.83-4.51); Lymphocyte % 16.3 % (19-41); Mean Corpuscular Hgb 30.7 pg (27.0-32.0); Mean Corpuscular Volume 99.2 fL (80-94); Mean Platelet Vol. 9.6 fl (6.2-12.0); Monocyte# 1.56 X10^3/uL; Monocyte% 12.7 % (0-10); NRBC Flagged by Analyzer 0 % (0-5); Neutrophil # 8.04 X10^3/uL (2.7-7.7); Neutrophil % 65.7 % (47-70); POSITIVE DIFFERENTIAL YES; Platelet Count 320 K/mm3 (150-450); RBC Distribution Width CV 14.2 % (11.6-14.6); RBC Distribution Width SD 51.8 fl (35.1-43.9); Red Blood Count 4.98 M/mm3 (4.6-6.2); White Blood Count 12.2 K/mm3 (4.4-11.0)
[2023-10-20 17:59] LABS: Anion Gap 4 (5-15); BUN 22 mg/dL (7-18); BUN/Creat Ratio 17.9 RATIO (10-20); Calcium,Total 8.9 mg/dL (8.5-10.1); Chloride 104 mmol/L (98-107); Creatinine, Serum 1.23 mg/dL (0.70-1.30); EST Glomerular Filtration Rate 64 mL/min (>60); Est Glom Filt Rate - Afr Amer 77 mL/min (>60); Estimated Creatinine Clearance 72.11 ml/min; Glucose 98 mg/dL (74-106); Potassium 3.8 mmol/L (3.5-5.1); Sodium Level 139 mmol/L (136-145)
--- NOTE | 2023-10-20 18:00 | EDS_ITS ---
HPI History of Present Illness Chief Complaint: Neuro S/Sx Detail of Chief Complaint: Cramping swelling of his fingers and toes left side yesterday at [employer] Informant: patient Onset/Context/Timing Onset: Yesterday Context: Sudden Onset Timing: Intermittent and Lasts (Duration 15 minutes) Quality: Curling of his fingers and toes causing him pain on the left side Location: Left side Current Severity: Gone Maximum Severity: Severe Worsened by: Nothing Relieved by: Nothing Associated Symptoms Associated Symptoms: No other symptoms Narrative Narrative: Patient is a 58-year-old male. [facility]. He has been out in the warm weather the past several days. He has not been eating or drinking much. He is presently unemployed. Has been unemployed since 2011 due to back injury. Patient denies headache. Patient [place] visual, ocular auditory symptoms. Patient denies trouble with speech or swallowing. Patient denies paresthesia, anesthesia or motor weakness upper or lower extremities. Patient denies problems with coordination or balance. Patient has been out in the sun a lot. Prior similar symptoms: No Recent Illness/Hospitalization: [facility] Medical History Homelessness Hyperlipemia HTN (hypertension) CAD (coronary artery disease) History of COPD History of [place] (myocardial infarction) Lumbar stenosis MARGARITO (obstructive sleep apnea) Asthma Myocardial infarct Home Medications ?Medication ?Instructions ?Recorded ?Last Taken ?Type albuterol sulfate 90 mcg/actuation 1 inh inhalation BID SOB 11/09/21 11/09/21 History aerosol inhaler (Ventolin HFA) lisinopril 20 mg tablet 20 mg PO DAILY bp 11/09/21 11/09/21 History aspirin 81 mg tablet,delayed 81 mg PO DAILY 04/12/22 Unknown History release atorvastatin 80 mg tablet 80 mg PO QHS 04/12/22 Unknown History metoprolol tartrate 25 mg tablet 25 mg PO DAILY 04/12/22 Unknown History budesonide 160 mcg-glycopyr 9 2 inh inhalation BID 02/09/23 Unknown History mcg-formot 4.8 mcg/actuation HFA inhaler (Breztri Aerosphere) rivaroxaban 15 mg (42)-20 mg (9) 1 tab PO DAILY 02/09/23 Unknown History tablets in a starter pack (Xarelto DVT-PE Treatment 30-Day Starter) sulfamethoxazole 800 1 tab PO BID #14 TABLETS 02/09/23 Unknown Rx mg-trimethoprim 160 mg tablet chlorthalidone 25 mg tablet 25 mg PO DAILY 10/20/23 Unknown History Allergy/AdvReac Type Severity Reaction Status Date / Time cabbage Allergy can not Verified 10/20/23 17:12 swallow lettuce Allergy can not Verified 10/20/23 17:12 swallow onion Allergy Vomiting Verified 10/20/23 17:12 peanut Allergy Anaphylaxis Verified 10/20/23 17:12 garlic AdvReac Mild Abd Verified 10/20/23 17:12 cramps/diarrhea Family History Father No problems noted. Surgical History H/O hernia repair Stented coronary artery Social History housing: homeless other: Patient is currently living out of his car and is supposed to be on oxygen Smoking Status: Former smoker alcohol intake: never substance use type: does not use ROS ROS ED Constitutional Constitutional ED: Reports sweats and other Details: Sweats due to the hot weather and high heat index. ; Denies chills, fever(s), subjective or weight loss Eyes Eyes: Denies blurry vision, change in vision or diplopia ENT ENT ED: Denies ear pain, rhinorrhea or sore throat Cardiovascular Cardiovascular: Denies chest pain or palpitations Respiratory/Chest Respiratory/Chest: Denies cough, dyspnea or dyspnea on exertion Gastrointestinal Gastrointestinal: Denies abdominal pain, diarrhea, nausea or vomiting Genitourinary Genitourinary ED: Reports other Details: Urine has been darker recently. ; Denies dysuria, hematuria or urinary frequency Musculoskeletal Musculoskeletal: Denies arthralgias or myalgias Integumentary Reports other Details: Patient does have sunburn to his upper torso and extremities. ; Denies rash Neurologic Neurologic: Denies headache(s), paresthesias or weakness Psychiatric Psychiatric: Denies anxiety Hematologic/Lymphatic Hematologic/Lymphatic: Reports systems reviewed and no addt'l complaints, except as documented EXAM Physical Exam Const Vital Signs: 10/20/23 16:24 06/24/24 18:24 Temperature 96.9 F L Temperature Source Temporal Pulse Rate 89 79 Respiratory Rate 14 16 Blood Pressure 110/66 114/73 Blood Pressure Mean 80 86 Pulse Ox 94 95 Oxygen Delivery Method Room Air Room Air Positive well nourished, well developed and unkempt General Appearance ED: unkempt, well developed and NAD; Negative for cyanotic, diaphoretic or pallor HEENT Reports dry mucous membranes HEENT Narrative: Head is atraumatic and normocephalic. Ears normal. Nares patent. Mouth ED: Yes dry mucous membranes Mouth: dry mucous membranes Eyes PERRL and EOMs intact bilaterally General Eye ED: Negative for pale conjunctiva or scleral icterus Neck no lymphadenopathy, supple and no JVD Chest Wall inspection of chest normal and palpation of chest normal Chest Narrative: Sunburn left greater than right Resp normal respiratory effort and clear to auscultation bilaterally Cardio regular rate, regular rhythm, S1 normal heart sound, S2 normal heart sound and no murmurs GI normal to inspection, nondistended, normoactive bowel sounds, non-tender, non- distended and no masses; Negative for hepatosplenomegaly Auscultation: normoactive bowel sounds Palpation: soft Back/Spine no CVA tenderness Extremity Extremity Narrative: Edema of his lower extremities. He said this for the past several months. This may be due to the fact that he is sleeping in his jeep with his feet low on the floor board. General Extremety ED: Yes edema General Extremity: edema Neuro oriented x3, CN's II-XII intact bilaterally and no sensory deficits noted Sensorium / Orientation: alert Motor Exam: strength 5/5 throughout Psych mental status grossly normal Appearance: unkempt Skin no rashes or lesions noted and no wounds General Skin Exam: Negative for jaundice or pallor MDM MDM MDM Narrative Medical decision making narrative: Patient's symptoms are consistent with heat exhaustion. He also is probably having heat cramps. Will obtain electrolyte panel to assess renal function, electrolytes and CO2 anion gap. IV fluids were ordered. Lab Data Attestation: I reviewed the patient's lab results. Lab results narrative: Basic metabolic panel is remarkable for an elevated BUN/creatinine of 22 and 1.23 with an estimated GFR of 64. His BUN to creatinine ratio is approximately 18-1. Labs: Laboratory Results - last 24 hr 10/20/23 17:35 WBC 12.2 H RBC 4.98 Hgb 15.3 Hct 49.4 MCV 99.2 H MCH 30.7 MCHC 31.0 L RDW Std Deviation 51.8 H RDW Coeff of Leticia 14.2 Plt Count 320 MPV 9.6 Immature Gran % (Auto) 0.800 Neut % (Auto) 65.7 Lymph % (Auto) 16.3 L [place] % (Auto) 12.7 H Eos % (Auto) 3.3 Baso % (Auto) 1.2 H Absolute Neuts (auto) 8.0 H Absolute Lymphs (auto) 1.99 Nucleated RBC % 0 Differential Comment SEE COMMENT Diff Path Review May foll Platelet Estimate ADEQUATE RBC Morphology N CHROM Anisocytosis 1+ Macrocytosis 1+ Sodium 139 Potassium 3.8 Chloride 104 Carbon Dioxide 31.0 Anion Gap 4 L BUN 22 H Creatinine 1.23 Estim Creat Clear Calc 72.11 Est GFR (MDRD) Af Amer 77 Est GFR (MDRD) Non-Af 64 BUN/Creatinine Ratio 17.9 Glucose 98 Calcium 8.9 Treatment and Re-Evaluation :: Patient improved with IV fluids. Plan is to discharge to home. Discharge Plan Triage Chief Complaint: Neuro S/Sx ED Provider: Ángel Christie Dx/Rx/DC Orders Clinical Impression: Effects of heat cramp, Heat exhaustion Instructions: ED Heat Cramps, ED Heat Exhaustion Prescriptions: No Action lisinopril 20 mg tablet 20 mg PO DAILY albuterol sulfate [Ventolin HFA] 90 mcg/actuation HFA aerosol inhaler 1 inh INHALATION BID atorvastatin 80 mg tablet 80 mg PO QHS Patient Comments: TAKE 1 TABLET BY MOUTH AT BEDTIME aspirin 81 mg tablet,delayed release (DR/EC) 81 mg PO DAILY Patient Comments: TAKE 1 TABLET BY MOUTH DAILY metoprolol tartrate 25 mg tablet 25 mg PO DAILY Patient Comments: TAKE 1 TABLET BY MOUTH TWICE DAILY Xarelto DVT-PE Treat 30d Start 15 mg (42)- 20 mg (9) tablets,dose pack 1 tab PO DAILY Patient Comments: TAKE ONE 15MG TABLET BY MOUTH TWICE DAILY WITH FOOD FOR 21 DAYS, THEN TAKE ONE 20MG TABLET ONCE DAILY WITH FOOD FOR 9 DAYS Breztri Aerosphere 160-9-4.8 mcg/actuation HFA aerosol inhaler 2 inh INHALATION BID Patient Comments: INHALE TWO (2) PUFFS BY MOUTH TWICE DAILY INSTRUCTED sulfamethoxazole-trimethoprim [sulfamethoxazole-trimethoprim] 800-160 mg tablet 1 tab PO BID Qty: 14 0RF chlorthalidone 25 mg tablet 25 mg PO DAILY Primary Care Provider: Samir Hay Referrals: Samir Hay MD [Primary Care Provider] - As Needed Print Language: Serbian Disposition Disposition: Home, Self Care
[2023-10-20 18:24] VITALS: BP 114/73; PULSE 79; RESP 16; O2SAT 95
[2023-10-20 18:24] LABS: Differential Indicated SCAN CRITERIA MET
[2023-10-20 18:28] LABS: Anisocytosis 1+; Platelet Estimate ADEQUATE (ADEQ); Red Cell Morphology N CHROM NORMAL (NORM C&C)
[2023-10-20 18:29] LABS: Macrocytosis 1+
[2023-10-20 18:52] VITALS: BP 123/85; PULSE 72; RESP 20; TEMP 36.4; O2SAT 95
[2023-10-21 13:46] LABS: Pathologist Review Reviewed
== END 2023-10-20 18:59 | disposition home or self-care (01) ==
PROVIDERS: Emergency Provider Emergency Medicine; PCP Internal Medicine; Visit Provider Emergency Medicine
DX: T67.2XXA Heat cramp, initial encounter (principal); J44.9 Chronic obstructive pulmonary disease, unspecified; Z87.891 Personal history of nicotine dependence; Z59.00 Homelessness unspecified; E78.5 Hyperlipidemia, unspecified; I10 Essential (primary) hypertension; I25.10 Atherosclerotic heart disease of native coronary artery without angina pectoris; I25.2 Old myocardial infarction; Z79.899 Other long term (current) drug therapy; Z79.82 Long term (current) use of aspirin; Z79.51 Long term (current) use of inhaled steroids; Z79.01 Long term (current) use of anticoagulants
CPT/HCPCS: 80048; 85025; 96360; 96361; 99284; J7030; A4216

== ENCOUNTER 2024-05-31 18:24 | Emergency (ER) | payer MEDICAID, SELFPAY ==
[2024-05-31 18:25] VITALS: BP 112/80; PULSE 95; RESP 16; TEMP 36.3; O2SAT 69
[2024-05-31 18:29] VITALS: BMI 31.1
--- NOTE | 2024-05-31 21:17 | EKG12_ITS ---
Test Reason : DYSRHYTHMIA Blood Pressure : */* mmHG Vent. Rate : 64 BPM Atrial Rate : 64 BPM P-R Int : 168 ms QRS Dur : 90 ms QT Int : 394 ms P-R-T Axes : 75 82 50 degrees QTcB Int : 406 ms Normal sinus rhythm with sinus arrhythmia Normal ECG Confirmed by SAY FERRERA, JACOB ([id number]), commissioning editor WIN ARZATE ([id number]) on 06/01/2024 8:54:29 AM Referred By: Confirmed By: JACOB DEAL MD
--- NOTE | 2024-05-31 21:17 | CT_ITS ---
PROCEDURE: CTA ABD/PELVIS W/WO CONTRAST REASON FOR EXAM: Abdominal pain. Hypotension. TECHNIQUE: CTA imaging of the abdomen and pelvis with intravenous contrast. 3D reconstructions. COMPARISON: CT abdomen/pelvis from 09/09/2021. FINDINGS: Abdominal aorta demonstrates normal caliber with no evidence of aneurysm or dissection. There are atherosclerotic calcifications of the abdominal aorta. Celiac artery, superior mesenteric artery, bilateral renal arteries, and inferior mesenteric artery are patent. Bilateral common iliac, internal iliac, and external iliac arteries are patent with atherosclerotic calcifications. However, there is a focal aneurysm involving the left internal iliac artery measuring 2.6 x 2.4 x 2.3 cm. Lung bases demonstrates mild emphysematous changes. Gallbladder, pancreas, biliary system, and adrenal glands are unremarkable. Liver and spleen are limited due to the phase of contrast. Bilateral kidneys enhance homogeneously without hydronephrosis or hydroureter. Bilateral renal cysts are present. Urinary bladder is smoothly contoured. There is a fat containing right inguinal hernia and suggestion of a small fat containing left inguinal hernia. Colonic diverticulosis is identified without diverticulitis. There is [id number] retained stool in the colon without obstruction. Appendix is unremarkable. Small bowel demonstrates a normal caliber. No free air or free fluid is identified. Evaluation of the osseous structures demonstrates no acute findings. Degenerative changes are present. There is grade 1 anterolisthesis of L4-L5. There are prior postsurgical changes posteriorly at L4-L5. CT/CTA Abd/Pelvis W/WO Contrast IMPRESSION: 1. 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 2. Atherosclerotic calcifications with no evidence of abdominal aortic aneurysm or dissection. 3. Colonic diverticulosis without diverticulitis. 4. Additional findings as above. One or more dose reduction techniques were used (e.g., Automated exposure contr ol, adjustment of the mA and/or kV according to patient size, use of iterative reconstruction technique). [facility]
--- NOTE | 2024-05-31 21:19 | EX.ED.DYSGE1 ---
HPI History of Present Illness Chief Complaint: Hypotension Informant: patient Narrative Narrative: Sent from PCP office for worsening abdominal pain. Patient states pain for the last month and a half. Pain in the mid abdomen. Nausea and vomiting over a week ago. He had a bowel movement this morning. Nonbloody. Inguinal hernia repairs in the past. No other abdominal surgeries. He is on Xarelto for history of paroxysmal A-fib. He had 2 stents in 2020. He is on Xarelto and aspirin. He states he is in his doctor's office today was told he was A-fib. He had worsening pain therefore was sent here. Prior similar symptoms: No [facility] Medical History Homelessness Hyperlipemia HTN (hypertension) CAD (coronary artery disease) History of COPD History of [place] (myocardial infarction) Lumbar stenosis [place] (obstructive sleep apnea) Asthma Myocardial infarct Home Medications ?Medication ?Instructions ?Recorded ?Last Taken ?Type albuterol sulfate 90 mcg/actuation 1 inh inhalation BID SOB 11/09/21 11/09/21 History aerosol inhaler (Ventolin HFA) lisinopril 20 mg tablet 20 mg PO DAILY bp 11/09/21 11/09/21 History aspirin 81 mg tablet,delayed 81 mg PO DAILY 04/12/22 Unknown History release atorvastatin 80 mg tablet 80 mg PO QHS 04/12/22 Unknown History metoprolol tartrate 25 mg tablet 25 mg PO DAILY 04/12/22 Unknown History budesonide 160 mcg-glycopyr 9 2 inh inhalation BID 02/09/23 Unknown History mcg-formot 4.8 mcg/actuation HFA inhaler (Breztri Aerosphere) rivaroxaban 15 mg (42)-20 mg (9) 1 tab PO DAILY 02/09/23 Unknown History tablets in a starter pack (Xarelto DVT-PE Treatment 30-Day Starter) sulfamethoxazole 800 1 tab PO BID #14 TABLETS 02/09/23 Unknown Rx mg-trimethoprim 160 mg tablet chlorthalidone 25 mg tablet 25 mg PO DAILY 10/20/23 Unknown History Allergy/AdvReac Type Severity Reaction Status Date / Time cabbage Allergy can not Verified 10/20/23 17:12 swallow lettuce Allergy can not Verified 10/20/23 17:12 swallow onion Allergy Vomiting Verified 10/20/23 17:12 peanut Allergy Anaphylaxis Verified 10/20/23 17:12 garlic AdvReac Mild Abd Verified 10/20/23 17:12 cramps/diarrhea Family History Father No problems noted. Surgical History H/O hernia repair Stented coronary artery Social History housing: homeless other: Patient is currently living out of his car and is supposed to be on oxygen Smoking Status: Former smoker alcohol intake: never substance use type: does not use ROS ROS ED Constitutional Constitutional ED: Denies chills, fever(s) or sweats ENT ENT ED: Denies sore throat Cardiovascular Cardiovascular: Denies chest pain, leg edema, palpitations or racing heartbeat Respiratory/Chest Respiratory/Chest: Denies cough, dyspnea or dyspnea on exertion Gastrointestinal Gastrointestinal: Reports abdominal pain; Denies diarrhea, nausea or vomiting Genitourinary Genitourinary ED: Denies dysuria, hematuria or urinary frequency Musculoskeletal Musculoskeletal: Denies back pain, extremity pain or neck pain Integumentary Denies rash or wounds Neurologic Neurologic: Denies headache(s), paresthesias or weakness EXAM Physical Exam Const Vital Signs: 05/31/24 18:25 Temperature 97.4 F L Temperature Source Temporal Pulse Rate 95 Respiratory Rate 16 Blood Pressure 112/80 Blood Pressure Mean 90 Pulse Ox 69 Oxygen Delivery Method Room Air Positive well nourished and well developed General Appearance ED: well developed and NAD HEENT Reports moist mucous membranes normocephalic and atraumatic Eyes General Eye ED: Yes normal appearance of both eyes Neck full ROM Chest Wall Chest: Negative for tenderness Resp normal respiratory effort and normal air movement Effort and Inspection: symmetric chest movement; Negative for respiratory distress Cardio regular rate, regular rhythm and no murmurs Peripheral Pulses: pulses 2+ throughout GI GI Narrative: Distended tender mid abdomen. Negative De Santiago's or McBurney's tenderness. Palpation: Negative for guarding or rebound tenderness present Extremity normal to inspection General Extremety ED: Negative for edema or tenderness General Extremity: Negative for edema Neuro oriented x3 and no sensory deficits noted Sensorium / Orientation: awake and alert Skin no rashes or lesions noted and no wounds MDM MDM MDM Narrative Medical decision making narrative: Interventions / MDM: Differential diagnosis: Abdominal pain, aneurysm, Hernia Diagnosis considered but do not suspect: Ischemic colitis however CT negative. My EKG interpretation: Sinus rate of 64, no ST or T wave changes. Imaging independently reviewed and interpreted by myself: CT angiogram abdomen: Left iliac artery up to 2.6 cm. Bilateral fat containing inguinal hernia. Normal appendix. External documents reviewed: N/A Test considered but not ordered:N/A ED course: Worsening pain mid abdomen reported A-fib in the doctor's office earlier. Will obtain EKG. Abdominal labs. Will obtain CT angiogram for further evaluation. He declines any pain medicines stating never to give him opioids.. 0: CT scan normal appendix there is left iliac aneurysm up to 2.6 cm. Fat-containing inguinal hernias. No ventral hernias. Labs with slight renal sufficiency creatinine 1.4 up from 1.2,7 months ago. He was given a liter of IV fluids. Reassured on findings. He is given follow-up with vascular surgery for his iliac aneurysm. Also follow-up with his PCP to recheck labs. All questions were answered. Re-evaluation: stable Disposition discussed with patient/family/significant other: Patient Case discussed with consulting clinician: N/A This note was generated with [employer] dictation software. It may contain incorrect words, spelling, and punctuation that were not noted in checking the note before signing. Lab Data Attestation: I reviewed the patient's lab results. Labs: Laboratory Results - last 24 hr 05/31/24 21:25 WBC 10.1 RBC 4.12 L Hgb 11.5 L Hct 37.2 L MCV 90.3 MCH 27.9 MCHC 30.9 L RDW Std Deviation 46.0 H RDW Coeff of Leticia 14.0 Plt Count 412 MPV 9.3 Immature Gran % (Auto) 0.500 Neut % (Auto) 57.5 Lymph % (Auto) 21.8 [place] % (Auto) 15.8 H Eos % (Auto) 3.2 Baso % (Auto) 1.2 H Absolute Neuts (auto) 5.8 Absolute Lymphs (auto) 2.20 Nucleated RBC % 0 Differential Comment SCANNED Sodium 137 Potassium 4.2 Chloride 105 Carbon Dioxide 28.0 Anion Gap 5 BUN 34 H Creatinine 1.41 H Estim Creat Clear Calc 62.55 Est GFR (MDRD) Af Amer 66 Est GFR (MDRD) Non-Af 55 L BUN/Creatinine Ratio 24.1 H Glucose 92 Lactic Acid 0.7 Calcium 8.9 Total Bilirubin 0.30 Direct Bilirubin 0.10 AST 10 L ALT 15 L Alkaline Phosphatase 104 Total Protein 6.9 Albumin 3.2 Globulin 3.7 Albumin/Globulin Ratio 0.9 Lipase 34 Radiography Diagnostic Testing: Clinical Impression(s) from Imaging Studies Abdomen/Pelvis CTA 05/31/24 21:17 IMPRESSION: 1. 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 2. Atherosclerotic calcifications with no evidence of abdominal aortic aneurysm or dissection. 3. Colonic diverticulosis without diverticulitis. 4. Additional findings as above. One or more dose reduction techniques were used (e.g., Automated exposure control, adjustment of the mA and/or kV according to patient size, use of iterative reconstruction technique). Reading Location: [facility] Discharge Plan Triage Chief Complaint: Hypotension ED Provider: Lance Prado Dx/Rx/DC Orders Clinical Impression: Abdominal pain, Iliac artery aneurysm, left, Acute renal insufficiency Instructions: Abdominal Pain, ED Renal Insufficiency Prescriptions: No Action lisinopril 20 mg tablet 20 mg PO DAILY albuterol sulfate [Ventolin HFA] 90 mcg/actuation HFA aerosol inhaler 1 inh INHALATION BID atorvastatin 80 mg tablet 80 mg PO QHS Patient Comments: TAKE 1 TABLET BY MOUTH AT BEDTIME aspirin 81 mg tablet,delayed release (DR/EC) 81 mg PO DAILY Patient Comments: TAKE 1 TABLET BY MOUTH DAILY metoprolol tartrate 25 mg tablet 25 mg PO DAILY Patient Comments: TAKE 1 TABLET BY MOUTH TWICE DAILY Xarelto DVT-PE Treat 30d Start 15 mg (42)- 20 mg (9) tablets,dose pack 1 tab PO DAILY Patient Comments: TAKE ONE 15MG TABLET BY MOUTH TWICE DAILY WITH FOOD FOR 21 DAYS, THEN TAKE ONE 20MG TABLET ONCE DAILY WITH FOOD FOR 9 DAYS Breztri Aerosphere 160-9-4.8 mcg/actuation HFA aerosol inhaler 2 inh INHALATION BID Patient Comments: INHALE TWO (2) PUFFS BY MOUTH TWICE DAILY INSTRUCTED sulfamethoxazole-trimethoprim [sulfamethoxazole-trimethoprim] 800-160 mg tablet 1 tab PO BID Qty: 14 0RF chlorthalidone 25 mg tablet 25 mg PO DAILY Primary Care Provider: Samir Hay Referrals: Arley Pompa MD [Med Staff - Active Staff] - 1-2 Weeks Samir Hay MD [Primary Care Provider] - 3-5 Days Activity Restrictions/Additional Instructions: CTA abdomen notes left iliac aneurysm 2.6 cm. Follow-up with Dr. Pompa. Fat-containing bilateral inguinal hernia. No obstruction. Normal appendix. Labs slight renal insufficiency with creatinine 1.41 up from 1.2 this past September. You are given a liter of fluids. Continue oral fluids for hydration. Follow-up with your doctor. Print Language: Macedonian Disposition Disposition: Home, Self Care Discharge Date/Time: 05/31/24 22:59
[2024-05-31 21:34] LABS: Absolute Neutrophil Count 5.8 X10^3/uL (2.0-7.7); Basophil# 0.12 X10^3/uL; Basophil% 1.2 % (0-1); Eosinophil# 0.32 X10^3/uL; Eosinophils% 3.2 % (0-5); Hematocrit 37.2 % (40-54); Hemoglobin 11.5 g/dL (13.0-16.5); Lymphocyte % 21.8 % (19-41); Mean Corp Hgb Conc 30.9 g/dL (32-36); Mean Corpuscular Hgb 27.9 pg (27.0-32.0); Mean Corpuscular Volume 90.3 fL (80-94); Mean Platelet Vol. 9.3 fl (6.2-12.0); Monocyte# 1.59 X10^3/uL; Monocyte% 15.8 % (0-10); NRBC Flagged by Analyzer 0 % (0-5); Neutrophil % 57.5 % (47-70); POSITIVE DIFFERENTIAL YES; Platelet Count 412 K/mm3 (150-450); Red Blood Count 4.12 M/mm3 (4.6-6.2); White Blood Count 10.1 K/mm3 (4.4-11.0)
[2024-05-31 21:38] LABS: Differential Indicated SCAN CRITERIA MET
[2024-05-31] MEDS: 0.9% Normal Saline (500mL Bag) 500 ML 999 ML IV (21:44)
[2024-05-31 21:51] LABS: ALB/GLOB Ratio 0.9 RATIO (0.9-2.4); AST(SGOT) 10 U/L (15-37); Alanine Aminotransfer ALT/SGPT 15 U/L (16-61); Albumin, Serum 3.2 g/dL (3.2-5.0); Alkaline Phosphatase 104 U/L (45-117); Anion Gap 5 (5-15); BUN 34 mg/dL (7-18); BUN/Creat Ratio 24.1 RATIO (10-20); Calcium,Total 8.9 mg/dL (8.5-10.1); Chloride 105 mmol/L (98-107); Creatinine, Serum 1.41 mg/dL (0.70-1.30); EST Glomerular Filtration Rate 55 mL/min (>60); Est Glom Filt Rate - Afr Amer 66 mL/min (>60); Estimated Creatinine Clearance 62.55 ml/min; Globulin 3.7 g/dL (2.2-4.2); Glucose 92 mg/dL (74-106); Lipase 34 U/L (13-75); Potassium 4.2 mmol/L (3.5-5.1); Protein, Total 6.9 g/dL (6.4-8.2); Sodium Level 137 mmol/L (136-145)
[2024-05-31 22:04] LABS: Lactic Acid 0.7 mmol/L (0.4-1.9)
[2024-05-31 22:08] LABS: Differential Comment SCANNED
== END 2024-05-31 22:59 | disposition home or self-care (01) ==
PROVIDERS: Emergency Provider Emergency Medicine; PCP Internal Medicine; Visit Provider Emergency Medicine
DX: I72.3 Aneurysm of iliac artery (principal); I48.0 Paroxysmal atrial fibrillation; N28.9 Disorder of kidney and ureter, unspecified; I25.10 Atherosclerotic heart disease of native coronary artery without angina pectoris; I10 Essential (primary) hypertension; Z95.5 Presence of coronary angioplasty implant and graft; Z79.01 Long term (current) use of anticoagulants; Z79.899 Other long term (current) drug therapy; Z87.891 Personal history of nicotine dependence; Z59.02 Unsheltered homelessness
CPT/HCPCS: 74174; 80053; 82248; 83605; 83690; 85025; 93005; 96360; 99283; Q9967; A4216

== ENCOUNTER 2025-01-05 22:03 | Emergency (ER) | payer MEDICAID, SELFPAY ==
[2025-01-05 22:05] VITALS: BP 130/80; PULSE 93; RESP 14; TEMP 36.4; O2SAT 93
[2025-01-05 22:22] VITALS: BMI 33.8
[2025-01-06 00:07] VITALS: BP 139/76; PULSE 69; RESP 14; O2SAT 97
[2025-01-06] MEDS: Orphenadrine 100 MG Tablet PO (00:08)
[2025-01-06] MEDS: HYDROmorphone 0.5 MG/0.5 ML SYRINGE IV ×2 (00:08→01:00)
[2025-01-06 00:20] LABS: Hematocrit 37.4 % (40-54); Hemoglobin 11.1 g/dL (13.0-16.5); Immature Granulocytes Count 0.020 X10^3/uL (0.0-0.0); Mean Corp Hgb Conc 29.7 g/dL (32-36); Mean Corpuscular Volume 82.6 fL (80-94); Mean Platelet Vol. 9.7 fl (6.2-12.0); NRBC Flagged by Analyzer 0 % (0-5); POSITIVE DIFFERENTIAL YES; Platelet Count 342 K/mm3 (150-450); RBC Distribution Width CV 17.1 % (11.6-14.6); RBC Distribution Width SD 50.9 fl (35.1-43.9); Red Blood Count 4.53 M/mm3 (4.6-6.2); White Blood Count 8.6 K/mm3 (4.4-11.0)
[2025-01-06 00:22] LABS: Differential Indicated SCAN CRITERIA MET
[2025-01-06 00:30] LABS: Anion Gap 10 (5-15); BUN 22 mg/dL (4-19); BUN/Creat Ratio 14.7 RATIO (10-20); Calcium,Total 9.0 mg/dL (7.6-11.0); Carbon Dioxide 27.0 mmol/L (21.0-32.0); Chloride 101 mmol/L (98-108); Estimated Creatinine Clearance 59.93 ml/min (50-250); Glucose 98 mg/dL (70-99); Magnesium 2.0 mg/dL (1.5-2.2); Potassium 4.3 mmol/L (3.3-5.1)
--- OUTSIDE RECORDS SUMMARY | 2025-01-06 00:36 | XMS RPT_ITS | CCD ---
Author Organization [facility] Care Team Providers Care Artist Color Separation Name Role Phone Shawna Rodriguez Unavailable [phone] LORI SHAWNA LAYLA Primary Care Unavailab ALEA Cheatham Attending SHAWNA Flaherty Admitting Unavailab SHAWNA Rock Primary Care Unavailab SHAWNA Rock Primary Care Unavailab BEATRICE Foster Attending UnavailMELANIE Flores Admitting Unavai lable SYSTEM, PROVIDER NOT IN Referring Unavaila CRISTELA Padilla Consulting Unavaila Shawna Bernstein Primary Care Provider Charles Charles CNP Primary Care Provider JENNIFER FERRERA, YENNY Amador Consulting Unavailable CHARLES CHARLES Primary Care Unavailable DENT DO, FEMI K Attending Unavailable DENT DO, FEMI K Admitting Unavailable Joaquim [phone], Marcus [phone] C onsulting Unavailable DENT DO, FEMI K Consulting Unavailable CHARLES CHARLES Consulting Unavailable WOOD DO, TUCKER A Attending Unavailable WOOD DO, TUCKER A Admitting Unavailable ARGELIA DE LA VEGA APRN Consulting Unavail able CHARLES CHARLES Primary Care Unavailable CHARLES CHARLES Consulting Unavailable TITO TUCKER MD Consulting Unavailable TITO TUCKER MD Admitting Unavailable CHARLES CHARLES Primary Care Unavailable TITO TUCKER MD Attending Unavailable CHARLES CHARLES Consulting Unavailable WOOD DO, TUCKER A Attending Unavailable WOOD DO, TUCKER A Admitting Unavailable CHARLES CHARLES Primary Care Unavailable Ani CORTES Consulting Unavailable WOOD DO, TUCKER A Consulting Unavailable CHARLES CHARLES Consulting Unavailable Melvin INSTRUCTOR OF EDUCATION, INSTRUCTOR OF EDUCATION-C Charles Primary Care Provider [phone] Melvin INSTRUCTOR OF EDUCATION, INSTRUCTOR OF EDUCATION-C Charles Referring Provider Melissa RYAN, SHELBY Carrera Attending Provider [phone] Dr. Calli Mcfadden Emergency Provider Dr. Alfred Baptiste Admit Provider Unavailable Emile, Dr. Simon Attending Provider Unavailable Dr. Alfred Baptiste Other Provider Unavailable Dr. Imer Maldonado Other Provider [phone] Heydi, Dr. Olya Mejia Attending Provider Koram, Dr. Olya Mejia Other Provider MELVINCHARLES MICHAEL ASSISTANT TODDLER TEACHER Admitting Unavailable MELVIN, CHARLES ASSISTANT TODDLER TEACHER Primary Care Unavailable MELVIN, CHARLES ASSISTANT TODDLER TEACHER Consulting Unavailable MELVINCHARLES MICHAEL CNP Attending Unavailable PROVIDER, UNKNOWN Consulting Unavailable PROVIDER, UNKNOWN Consulting Unavailable MELVIN, CHARLES ASSISTANT TODDLER TEACHER Admitting Unavailable MELVIN, CHARLES ASSISTANT TODDLER TEACHER Primary Care Unavailable MELVINCHARLES MICHAEL ASSISTANT TODDLER TEACHER Consulting Unavailable MELVINCHARLES MICHAEL CNP Attending Unavailable PROVIDER, UNKNOWN Consulting Unavailable PROVIDER, UNKNOWN Consulting Unavailable MELVIN, CHARLES ASSISTANT TODDLER TEACHER Admitting Unavailable MELVINCHARLES ASSISTANT TODDLER TEACHER Primary Care Unavailable MELVINCHARLES ASSISTANT TODDLER TEACHER Consulting Unavailable MELVINCHARLES MICHAEL ASSISTANT TODDLER TEACHER Attending Unavailable PROVIDER, UNKNOWN Consulting Unavailable PROVIDER, UNKNOWN Consulting Unavailable MELVIN, CHARLES ASSISTANT TODDLER TEACHER Admitting Unavailable MELVIN, CHARLES ASSISTANT TODDLER TEACHER Primary Care Unavailable MELVIN, CHARLES ASSISTANT TODDLER TEACHER Attending Unavailable MELVIN, CHARLES ASSISTANT TODDLER TEACHER Consulting Unavailable PROVIDER, UNKNOWN Consulting Unavailable PROVIDER, UNKNOWN Consulting Unavailable CARLOS A, NATI PAC Primary Care Unavailable CARLOS A, NATI PAC Attending Unavailable MELVIN, CHARLES ASSISTANT TODDLER TEACHER Consulting Unavailable CARLOS A, NATI PAC Admitting Unavailable PROVIDER, UNKNOWN Consulting Unavailable PROVIDER, UNKNOWN Consulting Unavailable LUKE HOOK Attending Unavailable MELVINCHARLES ASSISTANT TODDLER TEACHER Consulting Unavailable HOOK, LUKE Admitting Unavailable HOOK, LUKE Primary Care Unavailable PROVIDER, UNKNOWN Consulting Unavailable PROVIDER, UNKNOWN Consulting Unavailable MELVIN, CHARLES ASSISTANT TODDLER TEACHER Primary Care Unavailable MELVIN, CHARLES ASSISTANT TODDLER TEACHER Consulting Unavailable EMLVIN, CHARLES ASSISTANT TODDLER TEACHER Admitting Unavailable MELVINCHARLES ASSISTANT TODDLER TEACHER Attending Unavailable PROVIDER, UNKNOWN Consulting Unavailable PROVIDER, UNKNOWN Consulting Unavailable MELVIN, CHARLES ASSISTANT TODDLER TEACHER Consulting Unavailable IMER MALDONADO DO Admitting Unavailable IMER MALDONADO DO Primary Care Unavailable IMER MALDONADO DO Attending Unavailable PROVIDER, UNKNOWN Consulting Unavailable PROVIDER, UNKNOWN Consulting Unavailable CHARLES CHARLES CNP Primary Care Unavailable CHARLES CHARLES CNP Consulting Unavailable CHARLES CHARLES CNP Admitting Unavailable CHARLES CHARLES CNP Attending Unavailable PROVIDER, UNKNOWN Consulting Unavailable PROVIDER, UNKNOWN Consulting Unavailable Melvin INSTRUCTOR OF EDUCATION, INSTRUCTOR OF EDUCATION-C Charles Primary Care Provider [phone] Melvin INSTRUCTOR OF EDUCATION, INSTRUCTOR OF EDUCATION-C Charles Primary Care Provider Dr. Claritza Galvez Attending Provider Dr. Kenneth Zaragoza Referring Provider Samir Jordan MD Primary Care Provider MING ALBARRAN Attending Unavailable SAMIR JORDAN Referring Unavailable SAMIR JORDAN Primary Care Unavailable Dr. Samir Jordan Primary Care Provider Dr. Chucho Raphael Emergency Provider Dr. Cammy Alberto Admit Provider Dr. Cammy Alberto Attending Provider Dr. Cammy Alberto Other Provider Dr. Alrfed Baptiste Attending Provider Unavailable Dr. Alfred Baptiste Other Provider Unavailable Dr. Arley Pompa Attending Provider Dr. Claritza Galvez Attending Provider Dr. Cammy Alberto Referring Provider Dr. Leroy Keating Attending Provider Dr. Leroy Keating Other Provider Samir Jordan MD Primary Care Provider Neel 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, Leah M Unavailable PROVIDER, UNKNOWN Admitting Unavailable PROVIDER, UNKNOWN Attending Unavailable SAMIR JORDAN Primary Care Unavailable Ángel Christie Attending Unavailable Satnam, Samir Primary Care Unavailable Marcus Sierra Attending Unavailable Samir Jordan Referring Unavailable Satnam, Samir Primary Care Unavailable Satnam, Samir Primary Care Unavailable Lance Prado Attending Unavailable SAMIR JORDAN Primary Care Unavailable JORDAN, JULIUS Referring Unavailable JORDAN, JULIUS Primary Care Unavailable MICHELLE CASTANEDA Attending Unavailable JORDAN, JULIUS Primary Care Unavailable LEAH SHAIKH Referring Unavailable JORDAN, JULIUS Primary Care Unavailable LEAH SHAIKH Referring Unavailable JORDAN, JULIUS Referring Unavailable JORDAN, SAMIR Hurley Primary Care Unavailable JORDAN, JULIUS Attending Unavailable JORDAN, SAMIR Hurley Primary Care Unavailable VICTORIA JURADO Attending Unavailable JORDAN, JULIUS Primary Care Unavailable JORDAN, JULIUS Referring Unavailable JORDAN, JULIUS Primary Care Unavailable ОЛЬГА HUGHES Attending Unavailable HOMERO ESCAMILLA Referring Unavailable JORDAN, JULIUS Primary Care Unavailable JORDAN, JULIUS Attending Unavailable JORDAN, SAMIR Hurley Primary Care Unavailable ОЛЬГА HUGHES Referring Unavailable JORDAN, JULISU Referring Unavailable JORDAN, SAMIR Hurley Primary Care Unavailable JORDAN, SAMIR Hurley Primary Care Unavailable JORDAN, SAMIR Hurley Primary Care Unavailable JORDAN, JULIUS Referring Unavailable ALISSA RACHEL Referring Unavailable JORDAN, JULIUS Primary Care Unavailable JORDAN, JULIUS Primary Care Unavailable LEAH SHAIKH Attending Unavailable LEAH SHAIKH Referring Unavailable ALISSA RACHEL Attending Unavailable JORDAN, JULIUS Primary Care Unavailable JORDAN, JULIUS Primary Care Unavailable HOMERO ESCAMILLA Referring Unavailable JORDAN, JULIUS Primary Care Unavailable MICHELLE CASTANEDA Referring Unavailable ALISSA RACHEL Attending Unavailable JORDAN, JULIUS Primary Care Unavailable ALISSA RACHEL Referring Unavailable JORDAN, JULIUS Primary Care Unavailable HOMERO ESCAMILLA Referring Unavailable JORDAN, SAMIR Hurley Primary Care Unavailable HOMERO ESCAMILLA Attending Unavailable LEAH SHAIKH Attending Unavailable JORDAN, JULIUS Primary Care Unavailable JORDAN, JULIUS Primary Care Unavailable LEAH SHAIKH Attending Unavailable MICHELLE CASTANEDA Attending Unavailable JORDAN, JULIUS Primary Care Unavailable Allergies Allergy Classification Reported Allergen(s) Allergy Type Date of Onset Reaction(s) Facility Cabbage preparation (5 sources) Cabbage preparation Drug Allergy 2 Other: See Comments [facility] Work Phone: Garlic preparation (5 sources) Garlic preparation Drug Allergy 3 GI Upset [facility] lettuce allergenic extract (5 sources) lettuce allergenic extract Drug Allergy 2 Other: See Comments [facility] Onion extract (5 sources) Onion extract Drug Allergy 2 Vomiting [facility] (20 sources) Cabbage preparation; Translations: [CABBAGE] Drug Allergy 2 Other: See Comments [facility] Work Phone: (20 sources) lettuce allergenic extract; Translations: [LETTUCE] Drug Allergy 2 Other: See Comments [facility] Work Phone: (20 sources) Onion extract Drug Allergy 2 Vomiting [facility] Work Phone: (1 source) Dicyclomine Drug Allergy [facility] Repository (20 sources) Garlic preparation; Translations: [GARLIC OIL] Drug Allergy 3 GI Upset [facility] (3 sources) Onion extract; Translations: [ONION EXTRACT] Drug Allergy 2 [facility] Repository (3 sources) peanut allergenic extract Drug Allergy 3 Anaphylaxis [facility] (20 sources) Nut - Unspecified; Translations: [NUT - UNSPECIFIED] Drug Allergy 5 Anaphylaxis [facility] (1 source) Cabbage preparation Drug Allergy 4 [facility] Repository (1 source) Garlic preparation Drug Allergy 4 [facility] Repository (1 source) lettuce allergenic extract Drug Allergy 4 [facility] Repository (1 source) Onion extract Drug Allergy 4 [facility] Repository (1 source) peanut allergenic extract Drug Allergy 4 [facility] Repository Medications Current Medications Medication Drug Class(es) Dates Sig (Normalized) Sig (Original) acetaminophen 325 mg / oxyCODONE hydrochloride 5 mg oral tablet (1 source) Opioid Agonist Start: 07-27-2024 End: 08-01-2024 take 1 tablet by mouth four times daily as needed for pain oxyCODONE-acetami nophen (PERCOCET) 5-325 mg tablet Indications: History of cigarette smoking Take 1 tablet by mouth four times a day as needed for pain for up to 5 days. FOR PAIN. 12 tablet 07/27/2024 12:19 PM EDT 07/27/2024 08/01/2024 Active albuterol 0.83 mg/ml inhalation solution (20 sources) beta2-Adrenergic Agonist Start: 07-20-2024 End: 10-01-2024 take 2 puff(s) by inhalation every four hours as needed albuterol HFA (PROVENTIL HFA, VENTOLIN HFA) 90 mcg/actuation inhaler Inhale 2 puffs as instructed every 4 hours as needed. 1 each 2 10/01/2024 Active Start: 08-20-2022 End: 10-12-2024 albuterol (PROVENTIL) 2.5 mg /3 mL (0.083 %) nebulizer solution Indications: Uncomplicated asthma, unspecified asthma severity, unspecified whether persistent (HCC) , Chronic obstructive pulmonary disease with acute exacerbation (HCC) Use one vial every 4 hours as needed for wheezing/shortness of breath. Use over 5-15minutes. 60 mL 5 10/12/2024 Active Start: 06-27-2022 End: 10-01-2024 take 2 puff(s) by inhalation every four hours as needed for wheezing albuterol HFA (PROVENTIL HFA, VENTOLIN HFA) 90 mcg/actuation inhaler Inhale 2 Puffs as instructed every 4 hours as needed for wheezing/shortness of breath. 18 g 11 12/17/2023 10/01/2024 Discontinued (Duplicate Entry) Start: 05-17-2022 End: 08-20-2022 take 2.5 mg by inhalation every four hours as needed albuterol (PROVENTIL) 2.5 mg /3 mL (0.083 %) nebulizer solution Use 3 mL via nebulizer every 4 hours as needed for wheezing/shortness of breath. Use over 5-15minutes. 0 05/17/2022 08/20/2022 Discontinued Start: 11-09-2021 Albuterol Sulf ate (Ventolin Hfa) 90 mcg/actuation HFA aerosol inhaler Active 1 INH INHALATION TWICE A DAY November 09, 2021 12:00am Start: 05-04-2020 End: 05-05-2020 take 2.5 mg by inhalation every six hours as needed albuterol (PROVENTIL) 2.5 mg /3 mL (0.083 %) nebulizer solution 2.5 mg Start: 09-15-2019 End: 06-25-2022 take 2 puff(s) by mouth every four hours as needed for cough albuterol HFA (PROVENTIL HFA, VENTOLIN HFA) 90 mcg/actuation inhaler INHALE 2 PUFFS BY MOUTH EVERY 4 HOURS NEEDED FOR SHORTNESS OF BREATH WHEEZING PERSISTANT COUGH 0 09/15/2019 06/25/2022 Discontinued Start: 01-29-2018 End: 05-05-2020 take 2 puff(s) by inhalation every six hours as needed for wheezing albuterol 90 mcg/actuation inhaler Inhale 2 (two) puffs every 6 (six) hours as needed for wheezing. 1 Inhaler 0 01/29/2018 05/05/2020 Discontinued albuterol 90 mcg /actuation inhaler Inhale 2 puffs every 6 (six) hours as needed for wheezing. Active Comment on above: INHALE 2 PUFFS BY MO UTH EVERY 4 HOURS NEEDED FOR SHORTNESS OF BREATH WHEEZING PERSISTANT COUGH Use 3 mL via nebuliz er every 4 hours as needed for wheezing/shortness of breath. Use over 5-15minutes. Inhale 2 Puffs as in structed every 4 hours as needed for wheezing/shortness of breath. Use one vial every 4 hours as needed for wheezing/shortness of breath. Use over 5-15minutes. albuterol 90 mcg/actuation inhaler (3 sources) Start: take 2 puff(s) by inhalation every six hours as needed for wheezing albuterol 90 mcg/actuation inhaler Inhale 2 (two) puffs every 6 (six) hours as needed for wheezing . 1 Inhaler 0 05/05/2020 Active Start: 05-05-2020 End: 06-04-2020 take 2 puff(s) by inhalation every six hours as needed for wheezing albuterol 90 mcg/actuation inhaler Inhale 2 (two) puffs every 6 (six) hours as needed for wheezing . 1 Inhaler 0 05/05/2020 06/04/2020 Active Start: 05-05-2020 End: 05-05-2020 take 2 puff(s) by inhalation every six hours as needed for wheezing albuterol 90 mcg/actuation inhaler Inhale 2 (two) puffs every 6 (six) hours as needed for wheezing . 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 30 tablet 5 10/12/2024 Active ASPIRIN 81 PO Ta ke by mouth. 0 Active Comment on above: Take 81 mg by mouth once daily. Take 1 tablet by mayda once daily. 120 actuat budesonide 0.16 mg/actuat / formoterol fumarate 0.0048 mg/actuat / glycopyrrolate 0.009 mg/actuat metered dose inhaler (20 sources) Corticosteroid, beta2-Adrenergic Agonist Start: 10-02-2023 End: 08-27-2024 take 2 puff(s) by mouth twice daily KAELAI AEROSPHERE 160-9-4.8 mcg/actuation HFA aerosol inhaler INHALE 2 PUFFS BY MOUTH TWICE DAILY DIRECTED 10.7 g 11 08/27/2024 Active Start: 02-09-2023 Budesonide-Gly copyr-Formoterol [Budesonide 160 Mcg-Glycopyr 9 Mcg-Formot 4.8 Mcg/Actuation Hfa Inhaler] (Budesonide 160 Mcg-Glycopyr 9 Mcg-Formot 4.8 ) 160-9-4.8 mcg/actuation HFA aerosol inhaler Active 2 INH INHALATION TWICE A DAY February 08, 2023 11:00pm Start: 02-09-2023 Budesonide-Gly copyr-Formoterol [Budesonide 160 Mcg-Glycopyr 9 Mcg-Formot 4.8 Mcg/Actuation Hfa Inhaler] (Budesonide 160 Mcg-Glycopyr 9 Mcg-Formot 4.8 ) 160-9-4.8 mcg/actuation HFA aerosol inhaler Active 2 INH INHALATION TWICE A DAY February 09, 2023 12:00am Start: 11-14-2022 End: 10-02-2023 take 2 puff(s) by inhalation twice daily BREZTRI AEROSPHERE 160-9-4.8 mcg/actuati on HFA aerosol inhaler INHALE TWO (2) PUFFS TWICE DAILY INSTRUCTED 10.7 g 10 11/14/2022 10/02/2023 Discontinued Start: 07-29-2022 End: 11-14-2022 take 2 puff(s) by inhalation twice daily mkyenmbbxr-ywzcihqi-vvvkzvaafc (BREZTRI) 160-9-4.8 mcg/actuation HFA aerosol inhaler Indications: Chronic bronchitis, unspecified chronic bronchitis type (HCC) Inhale 2 Puffs as instructed twice daily. 1 Each 3 07/29/2022 08/28/2022 Active Comment on above: Inhale 2 Puffs as in structed twice daily. INHALE TWO (2) PUFFS TWICE DAILY INSTRUCTED chlorthalidone 25 mg oral tablet (20 sources) Thiazide-like Diuretic Start: 024 End: take 1 tablet by mouth once daily chlorthalidone (HYGROTON) 25 mg tablet Indications: Bilateral edema of lower extremity Take 1 tablet by mouth once daily. 30 tablet 5 12/14/2024 Active Comment on above: Take 1 tablet by mayda once daily. enteric contrast (will be provided with radiology test) (1 source) Start: 023 End: 023 enteric contrast (will be provided with radiology test) For CT ABD/PEL W IVCON Routine order Administer, As Directed One Time Only, via Oral, Rectal, both Oral and Rectal, Enteric Tube, Stoma or Indwelling Catheter, Enteric Contrast as designated per enteric contrast guidelines 1 Each 0 07/02/2022 07/03/2022 Active Comment on above: For CT ABD/PEL W IVC ON Routine order Administer, As Directed One Time Only, via Oral, Rectal, both Oral and Rectal, Enteric Tube, Stoma or Indwelling Catheter, Enteric Contrast as designated per enteric contrast guidelines fluticasone propionate 0.05 mg/actuat metered dose nasal spray (20 sources) Corticosteroid Start: take 2 spray(s) nasal route once daily fluticasone (FLONASE ALLERGY RELIEF) 50 mcg/actuation nasal spray Use 2 Sprays in each nostril once daily. 3 Each 2 07/20/2024 Active Start: 07-29-2022 End: 09-27-2022 take 2 spray(s) nasal route twice daily, then take 2 spray(s) nasal route twice daily, then take 2 spray(s) nasal route once daily fluticasone (FLONASE ALLERGY RELIEF) 50 mcg/actuation nasal spray Indications: Chronic rhinitis Use 2 Sprays in each nostril twice daily. 2 Sprays in each nostril twice daily x 2 weeks, Then decrease to 2 sprays in each nostril once daily 9.9 mL 3 07/29/2022 08/16/2022 Discontinued Comment on above: Use 2 Sprays in each nostril twice daily. 2 Sprays in each nostril twice daily x 2 weeks, Then decrease to 2 sprays in each nostril once daily 24 hr isosorbide mononitrate 30 mg extended release oral tablet (2 sources) Nitrate Vasodilator Start: 05-05-19 21 End: 06-04-19 21 take 1 tablet by mouth once daily isosorbide mononitrate (IMDUR) 30 MG 24 hr tablet Take 1 (one) tablet (30 mg total) by mouth daily . 30 tablet 0 05/05/2020 Active iv contrast (will be provided with radiology test) (1 source) Start: 07-03-19 23 End: 07-04-19 23 iv contrast (will be provided with radiology test) CT ABD/PEL -Inject, intravenously, once for 1 dose.No IV access, insert saline lock prior to the beginning of sedation, infusion, injection of imaging exam. Discontinue saline lock post exam. If Pt. has a central line or IVAD, may access for administration according to line specific nursing protocol. Once exam is complete flush line and de-access according to line specific nursing protocol in the CT contrast administration guidelines link. 1 Each 0 07/02/2022 07/03/2022 Active Comment on above: CT ABD/PEL -Inject, intravenously, once for 1 dose.No IV access, insert saline lock prior to the beginning of sedation, infusion, injection of imaging exam. Discontinue saline lock post exam. If Pt. has a central line or IVAD, may access for administration according to line specific nursing protocol. Once exam is complete flush line and de-access according to line specific nursing protocol in the CT contrast administration guidelines link. lisinopril 5 mg oral tablet (20 sources) Angiotensin Converting Enzyme Inhibitor Start: 08-31-19 take 1 tablet by mouth once daily lisinopril (ZESTRIL) 5 mg tablet Indications: Primary hypertension Take 1 tablet by mouth once daily. 30 tablet 11 08/30/2024 Active Start: 07-17-2023 End: 08-30-2024 take 1 tablet by mouth once daily lisinopril (ZESTRIL) 10 mg tablet Indications: Primary hypertension Take 1 tablet by mouth once daily. 30 tablet 11 12/17/2023 08/30/2024 Discontinued Start: 11-09-2021 End: 07-17-2023 take 1 tablet by mouth once daily lisinopril (ZESTRIL) 20 mg tablet Take 1 tablet by mouth once daily. 30 tablet 5 03/27/2023 07/17/2023 Discontinued (Dosage adjustment) Start: 05-05-2020 End: 06-04-2020 take 1 tablet by mouth once daily at lunch lisinopriL (PRINIVIL,ZESTRIL) 5 MG tablet Take 1 (one) tablet (5 mg total) by mouth daily with lunch . 30 tablet 0 05/05/2020 Active Start: 05-05-2020 End: 05-05-2020 lisinopriL (PRINIVIL,ZESTRIL ) tablet 5 mg Comment on above: Take 20 mg by mouth once daily. Take 1 tablet by mayda th once daily. 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 60 tablet 5 10/12/2024 Active Start: 04-12-2022 take 25 mg by mouth once daily Metoprolol Tartrate Active 25 MG PO DAILY April 12, 2022 1:00am Start: 05-04-2020 End: 06-04-2020 take 1 tablet by mouth twice daily metoprolol tartrate (LOPRESSOR) 25 MG tablet Take 1 (one) tablet (25 mg total) by mouth 2 (two) times a day . 60 tablet 0 05/05/2020 Active Comment on above: Take 1 tablet by mayda twice daily. montelukast 10 mg oral tablet (20 sources) Leukotriene Receptor Antagonist Start: 07-21-19 take 1 tablet by mouth once daily at bedtime montelukast (SINGULAIR) 10 mg tablet Take 1 tablet by mouth daily at bedtime. 90 tablet 2 07/20/2024 Active omeprazole 40 mg delayed release oral capsule (20 sources) Proton Pump Inhibitor Start: 11-11-19 End: 07-14-19 take 1 capsule by mouth once daily omeprazole (PRILOSEC) 40 mg capsule Indications: Gastroesophageal reflux disease without esophagitis Take 1 capsule by mouth once daily. 30 capsule 5 07/13/2024 Active Start: 10-14-2022 End: 10-20-2024 take 1 capsule by mouth once daily omeprazole (PRILOSEC) 20 mg capsule Indications: Gastroesophageal reflux disease without esophagitis Take 1 capsule by mouth once daily. 90 capsule 3 03/27/2023 10/24/2023 Discontinued Start: 07-29-2022 End: 08-28-2022 take 1 capsule by mouth once daily omeprazole (PRILOSEC) 20 mg capsule Indications: Gastroesophageal reflux disease without esophagitis Take 1 capsule by mouth once daily. 30 capsule 3 07/29/2022 08/16/2022 Discontinued Comment on above: Take 1 capsule by [facility] once daily. predniSONE 20 mg oral tablet (20 sources) Start: 04-25-2024 End: 04-30-2024 take 2 tablets by mouth once daily predniSONE (DELTASONE) 20 mg tablet Take 2 tablets by mouth once daily for 5 days. 10 tablet 04/25/2024 04/30/2024 Active Start: 10-11-2023 End: 10-16-2023 take 2 tablets by mouth once daily predniSONE (DELTASONE) 20 mg tablet Indications: Sinobronchitis , History of COPD Take 2 tablets by mouth once daily for 5 days. 10 tablet 10/11/2023 10/16/2023 Start: 05-08-2023 End: 06-26-2023 take 4 tablets by mouth once daily, then take 3 tablets by mouth once daily, then take 2 tablets by mouth once daily, then take 1 tablet by mouth once daily predniSONE (DELTASONE) 10 mg tablet Indications: Podagra TAKE BY MOUTH 4 TABLETS DAILY FOR 2 DAYS, THEN 3 TABLETS DAILY FOR 2 DAYS, THEN 2 TABLETS DAILY FOR 2 DAYS, THEN 1 TABLET DAILY FOR 2 DAYS. 20 tablet 0 06/04/2023 06/26/2023 Discontinued Start: 04-23-2023 End: 04-28-2023 take 2 tablets by mouth once daily predniSONE (DELTASONE) 20 mg tablet Take 2 tablets by mouth once daily for 5 days. 10 tablet 04/23/2023 04/28/2023 Start: 11-30-2022 End: 12-21-2022 take 50 mg by mouth once daily Prednisone Discontinued 50 MG PO DAILY November 30, 2022 12:00am December 21, 2022 9:49pm Comment on above: TAKE BY MOUTH 4 TABL ETS DAILY FOR 2 DAYS, THEN 3 TABLETS DAILY FOR 2 DAYS, THEN 2 TABLETS DAILY FOR 2 DAYS, THEN 1 TABLET DAILY FOR 2 DAYS. rivaroxaban 20 mg oral tablet (20 sources) Factor Xa Inhibitor Start: 03-27-2023 End: 09-07-2024 take 1 tablet by mouth once daily at dinner rivaroxaban (XARELTO) 20 mg tablet Indications: Chronic deep vein thrombosis (DVT) of calf muscle vein of right lower extremity (HCC) Take 1 tablet by mouth daily with dinner. 30 tablet 5 09/07/2024 Active Start: 02-09-2023 take 1 tablet by mayda [facility] once daily Rivaroxaban (Rivaroxaban 15 Mg (42)-20 Mg (9) Tablets In A Starter Pack) 15 mg (42)- 20 mg (9) tablets,dose pack Active 1 TABLET PO DAILY February 08, 2023 11:00pm Start: 02-09-2023 take 1 tablet by [facility] once daily Rivaroxaban (Rivaroxaban 15 Mg (42)-20 Mg (9) Tablets In A Starter Pack) 15 mg (42)- 20 mg (9) tablets,dose pack Active 1 TABLET PO DAILY February 09, 2023 12:00am Start: 12-26-2022 End: 03-27-2023 take 1 tablet by mouth twice daily at mealtime rivaroxaban (XARELTO DVT-PE TREAT 30D START) 15 mg (42)- 20 mg (9) DsPk Indications: Chronic deep vein thrombosis (DVT) of calf muscle vein of right lower extremity (HCC) Take 1 tablet (15 mg) by mouth twice daily with food for 21 days. Then take 1 tablet (20 mg) by mouth once daily with food for 9 days. 51 tablet 0 12/26/2022 03/27/2023 Discontinued Comment on above: Take 1 tablet (15 mg ) by mouth twice daily with food for 21 days. Then take 1 tablet (20 mg) by mouth once daily with food for 9 days. Take 1 tablet by mayda th daily with dinner. sulfamethoxazole 800 mg / trimethoprim 160 mg oral tablet (3 sources) Dihydrofolate Reductase Inhibitor Antibacterial, Sulfonamide Antimicrobial Start: take 1 tablet by mouth twice daily Sulfamethoxazole -Trimethoprim Active 1 TABLET PO TWICE A DAY February 09, 2023 12:00am 60 actuat tiotropium 0.0025 mg/actuat metered dose inhaler (4 sources) Anticholinergic Start: End: take 1 puff(s) by inhalation once daily tiotropium bromide (SPIRIVA RESPIMAT) 2.5 mcg/actuation Mist Inhale 1 (one) puff daily Start: 05/06/20. 4 g 0 05/06/2020 Active Start: 05-04-2020 End: 05-05-2020 tiotropium bromide (SPIRIVA RESPIMAT) 2.5 mcg/actuation inhaler 2 puff Completed/Discontinued Medications Medication Drug Class(es) Dates Sig (Normalized) Sig (Original) acetaminophen 325 mg oral tablet (2 sources) Start: 05-03-2020 End: 05-05-2020 take 1 tablet by mouth every four hours as needed acetaminophen (TYLENOL) tablet 650 mg Start: 04-27-2017 End: 04-27-2017 take 1 tablet by mouth once acetaminophen (TYLENOL) ta blet 975 mg 975 mg, Oral, Once, 04/27/17 at 1225, For 1 dose Given 04/27/2017 13:06 EST 975 mg acetaminophen 300 mg / codeine phosphate 30 mg oral tablet (20 sources) Opioid Agonist Start: 09-04-2022 End: 02-09-2023 take 1 tablet by mouth every six hours Acetaminophen-Codeine Discontinued 1 TABLET PO EVERY 6 HOURS 10 3 September 04, 2022 10:01am February 09, 2023 1:38pm Start: 11-13-2021 End: 12-26-2022 take 1 tablet by mouth every six hours as needed acetaminophen-codeine (TYLENOL-COD #3) 300-30 mg per tablet Take 1 tablet by mouth every 6 hours as needed for pain. 0 09/04/2022 Active Start: 11-09-2021 End: 02-09-2023 take 1 tablet by mouth every eight hours Acetaminophen-Codeine Discontinued 1 TABLET PO Q8H 6 2 November 13, 2021 7:49pm February 09, 2023 1:38pm Comment on above: Take 1 tablet by mayda [facility] every 6 hours as needed for pain. EVERY 6 HOURS acetaminophen 325 mg / HYDROcodone bitartrate 5 mg oral tablet (4 sources) Opioid Agonist Start: 06-22-19 16 End: 05-05-19 take 1 tablet by mouth every six hours as needed HYDROcodone-acetamin ophen (NORCO) 5-325 mg per tablet Take 1 tablet by mouth every 6 (six) hours as needed for pain. 12 tablet 0 06/22/2015 05/05/2020 Discontinued (Stop Taking at Discharge) albuterol 0.833 mg/ml / ipratropium bromide 0.167 mg/ml inhalant solution (1 source) Anticholinergic, beta2-Adrenergic Agonist Start: 04-27-20 End: 04-27-20 take 3 mL by inhalation once, then take 3 mL by inhalation ipratropium-albutero l (DUO-NEB) 0.5-2.5 mg/3 ml nebulizer solution 3 mL 3 mL, Inhalation, Once, 04/27/17 at 1225, For 1 dose Given 04/27/2017 12:43 EST 3 mL aluminum hydroxide 40 mg/ml / magnesium hydroxide 40 mg/ml / simethicone 4 mg/ml oral suspension (1 source) Start: 05-03-19 End: 05-05-19 take 30 mL by mouth every four hours as needed aluminum-magnesium hydroxide-simethicon e (MAALOX PLUS) 200-200-20 mg/5 mL suspension 30 mL atorvastatin 80 mg oral tablet (20 sources) HMG-CoA Reductase Inhibitor Start: 05-05-19 End: 05-05-19 atorvastatin (LIPITOR) tablet 80 mg Start: 05-05-2020 End: 08-22-2023 take 1 tablet by mouth once daily atorvastatin (LIPITOR) 80 mg tablet Take 1 tablet by mouth once daily. 30 tablet 5 03/27/2023 08/22/2023 Discontinued (Clinical Decision) Start: 05-04-2020 End: 05-04-2020 atorvastatin (LIPITOR) table t 40 mg Comment on above: Take 80 mg by mouth once daily. Take 1 tablet by mayda once daily. azithromycin (3 sources) Macrolide Antimicrobial Start: End: take 2 tablets by mouth once daily, then take 1 tablet by mouth, then take 1 tablet by mouth once daily azithromycin (Z-JESUS) 5 day dose pack Take two tablets by mouth on day 1, then one tablet by mouth daily until finished.. 6 tablet 0 01/29/2018 05/05/2020 Discontinued (Stop Taking at Discharge) Start: 04-27-2017 take 2 tablets by [facility] once daily, then take 1 tablet by mouth, then take 1 tablet by mouth once daily azithromycin (Z-JESUS) 5 day dose pack Take two tablets by mouth on day 1, then one tablet by mouth daily until finished.. 6 tablet 0 04/27/2017 Active benzonatate 100 mg oral capsule (8 sources) Non-narcotic Antitussive Start: 04-25-2024 End: 07-15-2024 take 2 capsules by mouth every eight hours as needed benzonatate (TESSALON PERLE) 100 mg capsule Take 2 capsules by mouth three times a day as needed. 30 capsule 04/25/2024 07/15/2024 Discontinued Start: 01-29-2018 End: 05-05-2020 take 1 capsule by mouth three times daily as needed for cough benzonatate (TESSALON) 200 MG capsule Take 1 (one) capsule (200 mg total) by mouth 3 (three) times a day as needed for cough. 12 capsule 0 01/29/2018 05/05/2020 Discontinued (Stop Taking at Discharge) clopidogrel 75 mg oral tablet (20 sources) [id number] Platelet Inhibitor Start: 04-12-2022 End: 12-21-2022 take 75 mg by mouth once daily Clopidogrel Discontinued 75 MG PO DAILY April 12, 2022 1:00am December 21, 2022 9:50pm Comment on above: Take 75 mg by mouth once daily. cyclobenzaprine hydrochloride 10 mg oral tablet (12 sources) Muscle Relaxant Start: 04-14-2024 End: 07-15-2024 take 1 tablet by mouth at bedtime as needed for muscle spasms cyclobenzaprine (FLEXERIL) 10 mg tablet Indications: Bilateral leg cramps Take 1 tablet by mouth at bedtime as needed for muscle spasm. 14 tablet 04/14/2024 07/15/2024 Discontinued docusate sodium 100 mg oral capsule (1 source) Start: 05-03-2020 End: 05-05-2020 docusate sodium (COLACE) capsule 100 mg doxycycline hyclate 100 mg oral tablet (8 sources) Tetracycline-cl ass Drug Start: 10-11-2023 End: 10-18-2023 take 1 tablet by mouth twice daily doxycycline (VIBRA-TABS) 100 mg tablet Indications: Sinobronchitis Take 1 tablet by mouth two times a day for 7 days. 14 tablet 10/11/2023 10/18/2023 famotidine 20 mg oral tablet (12 sources) Histamine-2 Receptor Antagonist Start: 05-30-2017 End: 03-27-2023 take 1 tablet by mouth twice daily famotidine (PEPCID) 20 mg tablet Take 1 tablet by mouth twice daily. 0 05/30/2017 03/27/2023 Discontinued (Clinical Decision) Comment on above: Take 1 tablet by mayda th twice daily. fluticasone-umeclidi n-vilanter (TRELEGY ELLIPTA) 200-62.5-25 mcg inhalation powder (16 sources) Start: 05-28-2022 End: 10-14-2022 take 1 puff(s) by inhalation once daily fluticasone-umeclidi n-vilanter (TRELEGY ELLIPTA) 200-62.5-25 mcg inhalation powder Inhale 1 Puff as instructed once daily. 1 Each 05/28/2022 10/14/2022 Discontinued (Not on Formulary) Start: 05-28-2022 take 1 puff(s) by inhalation once daily skgnhmzlpyk-ujgbytvxy-luthloni (TRELEGY ELLIPTA) 200-62.5-25 mcg inhalation powder Inhale 1 Puff as instructed once daily. 1 Each 05/28/2022 Active Comment on above: Inhale 1 Puff as ins tructed once daily. 60 actuat formoterol fumarate 0.005 mg/actuat / mometasone furoate 0.2 mg/actuat metered dose inhaler (8 sources) Corticosteroid, beta2-Adrenergic Agonist Start: 0 End: 3 take 2 puff(s) by inhalation twice daily DULERA 200-5 mcg/actuation inhaler Inhale 2 Puffs as instructed twice daily. 0 09/15/2019 07/29/2022 Discontinued (Course of therapy completed) Comment on above: Inhale 2 Puffs as in structed twice daily. furosemide 40 mg oral tablet (6 sources) Loop Diuretic Start: 3 End: 3 take 1 tablet by mouth once daily Furosemide (Lasix) 40 mg tablet Discontinued 40 MG PO DAILY December 24, 2022 12:00am February 09, 2023 1:38pm For leg swelling Start: 05-18-2021 End: 05-23-2021 take 1 tablet by mouth once daily furosemide (LASIX) 20 MG tablet Take 1 tablet by mouth daily for 5 days. 5 tablet 0 05/18/2021 05/23/2021 Active Comment on above: Take 40 mg by mouth once daily. For leg swelling 12 hr guaiFENesin 600 mg extended release oral tablet (7 sources) Star t: 03-29 End: 06-27 25 take 2 tablets by mouth twice daily guaiFENesin (MUCINEX) 600 mg 12 hr tablet Take 2 tablets by mouth two times a day. 24 tablet 04/25/2024 07/15/2024 Discontinued 250 ml heparin sodium, porcine 100 unt/ml injection (1 source) Unfractionated Heparin, Anti-coagulant Star t: 11-14 End: 11-14 heparin (porcine) 25,000 unit/250 mL in 0.45% NaCl infusion hydroCHLOROthiazide 12.5 mg oral capsule (4 sources) Thiazide Diuretic Star t: 04-28 End: 06-27 take 1 capsule by mouth once daily hydroCHLOROthiazide 12.5 mg capsule Indications: Primary hypertension Take 1 capsule by mouth once daily. 30 capsule 5 05/08/2023 07/17/2023 Discontinued (Dosage adjustment) Comment on above: Take 1 capsule by [facility] once daily. hydrocortisone 25 mg/ml topical cream (8 sources) Corticosteroid Star t: 05-29 End: 11-27 Hydrocortisone (Anusol-Hc) 2.5 % cream with perineal applicator Discontinued 1 APPLIC RC TWICE A DAY June 15, 2022 1:00am December 21, 2022 9:50pm iopamidol (1 source) Radiographic Contrast Agent Star t: 07-15 End: 07-15 iopamidol (ISOVUE-370) 76 % injection 75 mL 200 actuat ipratropium bromide 0.017 mg/actuat metered dose inhaler (4 sources) Anticholinergic End: 12-15 take 2 puff(s) by inhalation four times daily ipratropium (ATROVENT HFA) 17 mcg/actuation inhaler Inhale 2 puffs 4 (four) times a day. 0 05/05/2020 Discontinued (Stop Taking at Discharge) 1 ml ketorolac tromethamine 30 mg/ml injection (2 sources) Nonsteroidal Anti-inflammatory Drug, Cyclooxygenase Inhibitor Star t: 11-14 End: 11-14 keTORolac 30 mg injection (Toradol) Start: 09-05-2022 End: 09-05-2022 keTORolac 60 mg injection (T oradol) Mometasone-Formoterol (Duler a) 200-5 mcg/actuation HFA aerosol inhaler (12 sources) Start: 11-09-2021 End: 02-09-2023 Mometasone-Formoterol (Duler a) 200-5 mcg/actuation HFA aerosol inhaler Discontinued 1 INH INHALATION TWICE A DAY November 08, 2021 11:00pm February 09, 2023 12:41pm Start: 11-09-2021 End: 02-09-2023 Mometasone-Formoterol (Duler a) 200-5 mcg/actuation HFA aerosol inhaler Discontinued 1 INH INHALATION TWICE A DAY November 09, 2021 12:00am February 09, 2023 1:41pm Start: 11-09-2021 Mometasone-For moterol (Dulera) 200-5 mcg/actuation HFA aerosol inhaler Active 1 INH INHALATION TWICE A DAY November 08, 2021 11:00pm Start: 11-09-2021 Mometasone-For moterol (Dulera) 200-5 mcg/actuation HFA aerosol inhaler Active 1 INH INHALATION TWICE A DAY November 09, 2021 12:00am nitroglycerin 0.4 mg sublingual tablet (1 source) Nitrate Vasodilator Start: 05-03-2020 End: 05-05-2020 nitroGLYCERIN (NITROSTAT) SL tablet 0.4 mg nystatin 579948 unt/ml oral suspension (20 sources) Polyene Antifungal Start: 10-13-2023 End: 07-15-2024 nystatin (MYCOSTATIN) 100,000 unit/mL suspension Indications: Thrush (oral) Take 5 mL by mouth four times daily. 1tsp swish in mouth for several minutes, then swallow (or expectorate) 4 times daily until gone. 200 mL 10/21/2023 07/15/2024 Discontinued 2 ml ondansetron 2 mg/ml injection (1 source) Serotonin-3 Receptor Antagonist Start: 04-27-2017 End: 04-27-2017 ondansetron (ZOFRAN) injection 4 mg 4 mg, Intravenous, Once, 04/27/17 at 1225, For 1 dose Given 04/27/2017 13:06 EST 4 mg ondansetron (ZOFRAN-ODT) disintegrating tablet 4 mg (1 source) Start: 05-03-2020 End: 05-05-2020 take 1 tablet by mouth every six hours as needed ondansetron (ZOFRAN-ODT) disintegrating tablet 4 mg pantoprazole 40 mg delayed release oral tablet (3 sources) Proton Pump Inhibitor Start: 10-28-2017 End: 05-05-2020 take 1 tablet by mouth once daily pantoprazole (PROTONIX) 40 MG tablet Take 1 (one) tablet (40 mg total) by mouth daily. 30 tablet 0 10/28/2017 05/05/2020 Discontinued (Stop Taking at Discharge) Start: 10-28-2017 pantoprazole ( PROTONIX) injection 40 mg perflutren lipid microspheres (DEFINITY) 0.143 mg/mL solution 0-10 mL of mixture (1 source) Start: 05-04-2020 End: 05-05-2020 perflutren lipid microspheres (DEFINITY) 0.143 mg/mL solution 0-10 mL of mixture polyethylene glycol 3350 12975 mg powder for oral solution (16 sources) Osmotic Laxative Start: 11-11-2023 End: 07-15-2024 polyethylene glycol 3350 (MIRALAX) 17 gram packet Take 1 Packet by mouth once daily. Dissolve dose in 4 - 8 ounces of liquid 30 Packet 5 11/11/2023 07/15/2024 Discontinued polyethylene glycol 3350 657328 mg / potassium chloride 2980 mg / sodium bicarbonate 6720 mg / sodium chloride 5840 mg / sodium sulfate 50117 mg powder for oral solution (1 source) Osmotic Laxative Start: 08-15-2022 End: 08-15-2022 peg 3350-electrolytes (COLYTE) 240-22.72-6.72 -5.84 gram solution Indications: Special screening for malignant neoplasms, colon Take 4,000 mL by mouth one time only for 1 dose. 4000 mL 0 08/15/2022 08/15/2022 Comment on above: [facility] 1 dose. potassium chloride 10 meq extended release oral tablet (5 sources) Start: 12-24-2022 End: 12-26-2022 take 2 tablets by mouth once daily potassium chloride (K-TAB) 10 mEq tablet Take 2 tablets by mouth once daily. 0 12/24/2022 12/26/2022 Discontinued (Clinical Decision) Start: 12-24-2022 End: 02-09-2023 take 20 mEq by mouth once daily Potassium Chloride Discontinued 20 MEQ PO DAILY 60 December 24, 2022 12:00am February 09, 2023 1:41pm Comment on above: Take 2 tablets by [facility] once daily. Sodium Chloride (1 source) Start: 05-03-2020 End: 05-05-2020 sodium chloride (PF) (NS) flush 5 mL ticagrelor 90 mg oral tablet (5 sources) Start: 05-04-2020 End: 06-04-2020 take 1 tablet by mouth twice daily ticagrelor (BriLINTA) 90 mg Tab tablet Take 1 (one) tablet (90 mg total) by mouth 2 (two) times a day . 60 tablet 11 05/05/2020 05/05/2020 Discontinued Problems Active Problems Problem Classification Problem Date Documented Da te Episodic/Chronic Acute myocardial infarction (3 sources) Myocardial infarction; Translations: [NSTEMI (non-ST elevated myocardial infarction)] Onset: 1 05-03-2020 Chronic Aortic; peripheral; and visceral artery aneurysms (20 sources) Aneurysm of left iliac artery; Translations: [Aneurysm of iliac artery] Onset: 5 09-03-2024 Chronic Asthma (20 sources) Asthma; Translations: [Unspecified asthma, uncomplicated] Onset: 1 05-17-2022 Chronic Chronic obstructive pulmonary disease and bronchiectasis (20 sources) Acute exacerbation of chronic obstructive airways disease; Translations: [Chronic obstructive lung disease] Onset: 5 03-22-2015 Chronic Coronary atherosclerosis and other heart disease (20 sources) Coronary arteriosclerosis in [place] artery; Translations: [Coronary arteriosclerosis] Onset: 3 Chronic Disorders of lipid metabolism (20 sources) Hyperlipidemia, unspecified; Translations: [Hyperlipidemia] Onset: 2 05-17-2022 Chronic Esophageal disorders (20 sources) Gastroesophageal reflux disease without esophagitis; Translations: [Gastro-esophageal reflux disease without esophagitis] Onset: 3 Chronic Essential hypertension (20 sources) Essential (primary) hypertension; Translations: [Hypertensive disorder] Onset: 2 05-17-2022 Chronic Fluid and electrolyte disorders (8 sources) Hypokalemia; Translations: [Hypokalemia] 12-21-2022 Episodic Genitourinary symptoms and ill-defined conditions (1 source) Blood in urine; Translations: [Hematuria, unspecified] 07-27-2023 Episodic Gout and other crystal arthropathies (1 source) Podagra; Translations: [Gout, unspecified] 06-04-2023 Chronic Hemorrhoids (8 sources) Bleeding external hemorrhoids; Translations: [Residual hemorrhoidal skin tags] 06-15-2022 Episodic Immunizations and screening for infectious disease (20 sources) Patient encounter status; Translations: [Encounter for laboratory testing for COVID-19 virus] Onset: 2 Episodic Malaise and fatigue (10 sources) Decline in functional status; Translations: [Other malaise] Episodic Mycoses (2 sources) Candidiasis of mouth; Translations: [Candidal stomatitis] 10-13-2023 Episodic Nonspecific chest pain (2 sources) Chest pain, unspecified; Translations: [CHEST PAIN UNSPECIFIED] Onset: 1 Episodic Other circulatory disease (1 source) Low blood pressure; Translations: [Hypotension, unspecified] 05-31-2024 Episodic Other connective tissue disease (1 source) Pain of toes of bilateral feet; Translations: [Pain in right toe(s)] 06-26-2023 Episodic Other connective tissue disease (1 source) Bilateral cramp of muscle of lower limbs; Translations: [Cramp and spasm] 04-14-2024 Episodic Other diseases of kidney and ureters (2 sources) Renal impairment; Translations: [Disorder of kidney and ureter, unspecified] 04-15-2024 Episodic Other gastrointestinal disorders (1 source) Dysphagia; Translations: [Dysphagia, unspecified] Episodic Other gastrointestinal disorders (3 sources) Swollen abdomen; Translations: [Abdominal distension (gaseous)] 01-15-2023 Episodic Other lower respiratory disease (2 sources) Shortness of breath; Translations: [SHORTNESS OF BREATH] Onset: 1 Episodic Other lower respiratory disease (5 sources) Dyspnea; Translations: [Shortness of breath] Episodic Other lower respiratory disease (6 sources) History of chronic obstructive airway disease; Translations: [Personal history of other diseases of the respiratory system] 12-22-2022 Episodic Other lower respiratory disease (5 sources) Dyspnea on exertion; Translations: [Other forms of dyspnea] 12-21-2022 Episodic Other lower respiratory disease (5 sources) Hypoxia; Translations: [Hypoxemia] 12-22-2022 Episodic Other lower respiratory disease (3 sources) Other forms of dyspnea; Translations: [Other respiratory abnormalities] 12-21-2022 Episodic Other lower respiratory disease (3 sources) Hypoxemia; Translations: [Hypoxemia] 12-21-2022 Episodic Other lower respiratory disease (2 sources) Cough; Translations: [Acute cough] 08-30-2024 Episodic Other nervous system disorders (12 sources) Postoperative pain ; Translations: [Other acute postprocedural pain] 11-21-2021 Episodic Other nervous system disorders (2 sources) Other acute postprocedural pain; Translations: [Other acute postoperative pain] Episodic Other non-traumatic joint disorders (1 source) Shoulder pain; Translations: [Pain in right shoulder] Episodic Other non-traumatic joint disorders (1 source) Pain in right shoulder; Translations: [Pain in joint, shoulder region] 09-05-2022 Episodic Other nutritional; endocrine; and metabolic disorders (1 source) Morbid (severe) obesity due to excess calories; Translations: [Morbid (severe) obesity due to excess calories] Onset: 2 Chronic Other nutritional; endocrine; and metabolic disorders (20 sources) Obese class I; Translations: [Obesity, unspecified] Onset: 3 12-26-2022 Chronic Other nutritional; endocrine; and metabolic disorders (1 source) Weight gain; Translations: [Abnormal weight gain] 01-15-2023 Episodic Other screening for suspected conditions (not mental disorders or infectious disease) (3 sources) Other specified abnormal findings of blood chemistry; Translations: [Other abnormal blood chemistry] 01-16-2023 Episodic Other skin disorders (1 source) Nodule of subcutaneous tissue of back; Translations: [Localized swelling, mass and lump, trunk] 09-24-2022 Episodic Other upper respiratory disease (1 source) Chronic rhinitis; Translations: [Chronic rhinitis] Chronic Other upper respiratory disease (5 sources) Unspecified disorder of nose and nasal sinuses; Translations: [Disorder of nasal sinus] 06-21-2015 Episodic Other upper respiratory disease (2 sources) Other specified disorders of nose and nasal sinuses; Translations: [OTH SPEC D/O NOSE NASAL SINUSES] Onset: 2 Episodic Other upper respiratory infections (1 source) Chronic sinusitis; Translations: [Chronic sinusitis, unspecified] 10-11-2023 Chronic Other upper respiratory infections (13 sources) Viral upper respiratory tract infection; Translations: [Acute upper respiratory infection, unspecified] 02-26-2022 Episodic Peripheral and visceral atherosclerosis (20 sources) Peripheral vascular disease; Translations: [Peripheral vascular disease, unspecified] Onset: 5 07-26-2024 Chronic Phlebitis; thrombophlebitis and thromboembolism (20 sources) Chronic deep venous thrombosis of calf; Translations: [Chronic embolism and thrombosis of right calf muscular vein] Onset: 3 12-26-2022 Chronic Residual codes; unclassified (20 sources) Obstructive sleep apnea syndrome; Translations: [Obstructive sleep apnea (adult) (pediatric)] Onset: 3 05-17-2022 Chronic Residual codes; unclassified (1 source) Obstructive sleep apnea (adult) (pediatric); Translations: [MARGARITO (obstructive sleep apnea)] Onset: 5 Chronic Residual codes; unclassified (4 sources) Other problems related to lifestyle; Translations: [Other problems related to lifestyle] Onset: 2 Episodic Residual codes; unclassified (1 source) Tobacco user; Translations: [Tobacco use] Episodic Residual codes; unclassified (3 sources) Localized edema; Translations: [Edema] 12-21-2022 Episodic Residual codes; unclassified (2 sources) H/O: respiratory disease; Translations: [Personal history of other specified conditions] 10-13-2023 Episodic Schizophrenia and other psychotic disorders (20 sources) Delusions; Translations: [Delusional disorders] Onset: 3 12-22-2022 Chronic Skin and subcutaneous tissue infections (3 sources) Abscess of back, except buttock; Translations: [Cutaneous abscess of back [any part, except buttock]] 02-09-2023 Episodic Spondylosis; intervertebral disc disorders; other back problems (3 sources) Spondylosis without myelopathy or radiculopathy, lumbar region; Translations: [Other intervertebral disc degeneration, lumbar region] Onset: 2 Chronic Spondylosis; intervertebral disc disorders; other back problems (20 sources) Backache; Translations: [Spinal stenosis of lumbar region] Onset: 2 06-21-2015 Episodic Sprains and strains (6 sources) Strain of muscle of upper limb; Translations: [Strain of unspecified muscle, fascia and tendon at shoulder and upper arm level, right arm, initial encounter] 09-12-2022 Episodic Substance-related disorders (3 sources) Tobacco dependence in remission; Translations: [Tobacco abuse, in remission] Onset: 1 05-04-2020 Chronic Superficial injury; contusion (1 source) Abrasion, left foot, initial encounter; Translations: [Abrasion or friction burn of foot and toe(s), without mention of infection] 08-22-2023 Episodic Unclassified (1 source) COUGH, UNSPECIFIED; Translations: [COUGH, UNSPECIFIED] Onset: 2 Unclassified (1 source) Acute cough; Translations: [Acute cough] Onset: 5 Unclassified (1 source) Autogenerated Problem Onset: 5 12-30-2024 Varicose veins of lower extremity (7 sources) Varicose veins of lower extremity; Translations: [Varicose veins of bilateral lower extremities with other complications] Onset: 5 11-16-2024 Episodic Viral infection (20 sources) Acute viral disease; Translations: [Viral infection, unspecified] Episodic Past or Other Problems Problem Classification Problem Date Documented Da te Episodic/Chronic Abdominal hernia (11 sources) Umbilical hernia; Translations: [Umbilical hernia without obstruction or gangrene] Onset: 07-27-2024 Episodic Abdominal pain (10 sources) Upper abdominal pain; Translations: [Generalized abdominal pain] Onset: 06-17-2024 11-11-2023 Episodic Administrative/social admission (20 sources) Homeless; Translations: [Homeless] Onset: 12-26-2022 12-22-2022 Episodic Other connective tissue disease (1 source) Cramp and spasm; Translations: [Bilateral leg cramps] Onset: 04-14-2024 Episodic Other diseases of kidney and ureters (1 source) Disorder of kidney and ureter, unspecified; Translations: [Kidney insufficiency] Onset: 07-20-2024 Episodic Other gastrointestinal disorders (20 sources) Constipation; Translations: [Constipation, unspecified] Onset: 11-26-2023 11-21-2021 Episodic Other gastrointestinal disorders (3 sources) Constipation, unspecified; Translations: [Constipation, unspecified] Onset: 11-26-2023 Episodic Other inflammatory condition of skin (20 sources) Seborrheic dermatitis; Translations: [Seborrheic dermatitis, unspecified] Onset: 11-26-2019 11-26-2019 Episodic Other injuries and conditions due to external causes (1 source) Heat cramp, initial encounter; Translations: [Heat cramp, initial encounter] Onset: 11-08-2023 Episodic Other lower respiratory disease (20 sources) Multiple nodules of lung; Translations: [Other nonspecific abnormal finding of lung field] Onset: 04-30-2024 01-28-2023 Episodic Other skin disorders (20 sources) Epidermoid cyst; Translations: [Epidermal cyst] Onset: 11-26-2019 Resolved: 05-17-2022 05-17-2022 Episodic Other skin disorders (20 sources) Folliculitis; Translations: [Follicular disorder, unspecified] Onset: 11-26-2019 Resolved: 05-17-2022 05-17-2022 Episodic Residual codes; unclassified (20 sources) Bilateral lower limb edema; Translations: [Localized edema] Onset: 07-17-2023 Episodic Screening and history of mental health and substance abuse codes (20 sources) Ex-cigarette smoker; Translations: [Personal history of nicotine dependence] Onset: 04-30-2024 Episodic Unclassified (1 source) COUGH, UNSPECIFIED; Translations: [COUGH, UNSPECIFIED] Onset: 06-21-2021 Results Test Name Value Interpretation Reference Range Facility [facility] 12-14-2024 [facility] Telephone (MICHELLED) SHAWNA PRAJAPATI ([id number]) 1965 M Date Time Provider Department 12/14/24 ALISSA RACHEL During your visit today, we recorded the following information about you: Abbie Hernandez 12/14/2024 2:30 PM Signed Patient is calling in regards to arranging a procedure please advise the patient Nava Caal 12/22/2024 8:59 AM Signed Patient called front edger regarding the procedure date. He stated he needs 48 hour notice due to needing a ride through his insurance company. Tracy Painter 12/23/2024 4:05 PM Signed Spoke to patient to schedule procedure, he will check with his transportation and he will call back to set up a date. Encounter closed. Allergies As of Date: 12/14/2024 Noted Allergy Reaction CABBAGE 11/09/2021 14 - Other: See Comments Comments: dysphagia LETTUCE 11/09/2021 14 - Other: See Comments Comments: dysphagia ONION EXTRACT 11/09/2021 11 - Vomiting GARLIC OIL 07/02/2022 8 - GI Upset NUT - UNSPECIFIED 08/30/2024 10 - Anaphylaxis Comments: ALL NUTS Date Reviewed: 11/23/2024 Reviewed by: Shayy Vasquez OCCA - Fully Assessed Reason for Visit: Appointment [[id number]] Prescriptions as of 12/23/2024 - chlorthalidone (HYGROTON) 25 mg tablet Take 1 tablet by mouth once daily. - albuterol (PROVENTIL) 2.5 mg /3 mL (0.083 %) nebulizer solution Use one vial every 4 hours as needed for wheezing/shortness of breath. Use over 5-15minutes. - aspirin, enteric coated (ASPIRIN, ENTERIC COATED) 81 mg EC tablet Take 1 tablet by mouth once daily. - metoprolol tartrate, short acting, (LOPRESSOR) 25 mg tablet Take 1 tablet by mouth two times a day. - albuterol HFA (PROVENTIL HFA, VENTOLIN HFA) 90 mcg/actuation inhaler Inhale 2 puffs as instructed every 4 hours as needed. - rivaroxaban (XARELTO) 20 mg tablet Take 1 tablet by mouth daily with dinner. - lisinopril (ZESTRIL) 5 mg tablet Take 1 tablet by mouth once daily. - BREZTRI AEROSPHERE 160-9-4.8 mcg/actuation HFA aerosol inhaler INHALE 2 PUFFS BY MOUTH TWICE DAILY DIRECTED - fluticasone (FLONASE ALLERGY RELIEF) 50 mcg/actuation nasal spray Use 2 Sprays in each nostril once daily. - montelukast (SINGULAIR) 10 mg tablet Take 1 tablet by mouth daily at bedtime. - omeprazole (PRILOSEC) 40 mg capsule Take 1 capsule by mouth once daily. Problem List As Of Date 12/14/2024 Noted Resolved EIC (epidermal inclusion cyst) [L72.0] 11/26/2019 05/17/2022 Folliculitis [L73.9] 11/26/2019 05/17/2022 Seborrheic dermatitis [L21.9] 11/26/2019 Asthma [J45.909] 1990 COPD (chronic obstructive pulmonary disease) (H*2021 MARGARITO on CPAP [G47.33] 2012 Hyperlipidemia [E78.5] 07/17/2021 Hypertension [I10] 07/17/2021 Coronary artery disease involving pechanga heart *08/15/2022 Obesity, Class I, BMI 30-34.9 [E66.811] 12/26/2022 Homelessness [Z59.00] 12/26/2022 Chronic deep vein thrombosis (DVT) of calf musc*03/27/2023 Gastroesophageal reflux disease without esophag*03/27/2023 Delusions (HCC) [F22] 03/28/2023 Bilateral edema of lower extremity [R60.0] 07/17/2023 Constipation [K59.00] 11/26/2023 Lung nodules [R91.8] 04/30/2024 History of cigarette smoking [Z87.891] 04/30/2024 PVD (peripheral vascular disease) [I73.9] 07/26/2024 Iliac artery aneurysm, left [I72.3] 09/03/2024 Encounter Status:Closed by TRACY PAINTER on 12/23/24 [facility] Neel[place] 11-29-2024 [place] Telephone ([facility]) SHAWNA PRAJAPATI ([id number]) 1965 M Date Time Provider Department 11/29/24 IGGY DARDEN [facility] During your visit today, we recorded the following information about you: Kemi Baig MA 11/29/2024 9:57 AM Signed We received pharmacy notification via fax that Breztri needs PA. PA has been submitted via cover my meds. Kemi Baig MA November 29, 2024 9:57 AM SHAWNA DAWKINS (Abrams: [id number]) [place] Rx #: [id number] Need Help? Call us at Status Sent to Plan today Drug Breztri Aerosphere 160-9-4.8MCG/ACT aerosol Form [place] Medicaid [employer] PA Form (2016 [facility]) Original Claim Info 75 Allergies As of Date: 11/29/2024 Noted Allergy Reaction CABBAGE 11/09/2021 14 - Other: See Comments Comments: dysphagia LETTUCE 11/09/2021 14 - Other: See Comments Comments: dysphagia ONION EXTRACT 11/09/2021 11 - Vomiting GARLIC OIL 07/02/2022 8 - GI Upset NUT - UNSPECIFIED 08/30/2024 10 - Anaphylaxis Comments: ALL NUTS Date Reviewed: 11/23/2024 Reviewed by: Shayy Vasquez OCCA - Fully Assessed Prescriptions as of 11/29/2024 - albuterol (PROVENTIL) 2.5 mg /3 mL (0.083 %) nebulizer solution Use one vial every 4 hours as needed for wheezing/shortness of breath. Use over 5-15minutes. - aspirin, enteric coated (ASPIRIN, ENTERIC COATED) 81 mg EC tablet Take 1 tablet by mouth once daily. - metoprolol tartrate, short acting, (LOPRESSOR) 25 mg tablet Take 1 tablet by mouth two times a day. - albuterol HFA (PROVENTIL HFA, VENTOLIN HFA) 90 mcg/actuation inhaler Inhale 2 puffs as instructed every 4 hours as needed. - rivaroxaban (XARELTO) 20 mg tablet Take 1 tablet by mouth daily with dinner. - lisinopril (ZESTRIL) 5 mg tablet Take 1 tablet by mouth once daily. - BREZTRI AEROSPHERE 160-9-4.8 mcg/actuation HFA aerosol inhaler INHALE 2 PUFFS BY MOUTH TWICE DAILY DIRECTED - fluticasone (FLONASE ALLERGY RELIEF) 50 mcg/actuation nasal spray Use 2 Sprays in each nostril once daily. - montelukast (SINGULAIR) 10 mg tablet Take 1 tablet by mouth daily at bedtime. - omeprazole (PRILOSEC) 40 mg capsule Take 1 capsule by mouth once daily. - chlorthalidone (HYGROTON) 25 mg tablet Take 1 tablet by mouth once daily. Problem List As Of Date 11/29/2024 Noted Resolved EIC (epidermal inclusion cyst) [L72.0] 11/26/2019 05/17/2022 Folliculitis [L73.9] 11/26/2019 05/17/2022 Seborrheic dermatitis [L21.9] 11/26/2019 Asthma [J45.909] 1990 COPD (chronic obstructive pulmonary disease) (H*2021 MARGARITO on CPAP [G47.33] 2012 Hyperlipidemia [E78.5] 07/17/2021 Hypertension [I10] 07/17/2021 Coronary artery disease involving pechanga heart *08/15/2022 Obesity, Class I, BMI 30-34.9 [E66.811] 12/26/2022 Homelessness [Z59.00] 12/26/2022 Chronic deep vein thrombosis (DVT) of calf musc*03/27/2023 Gastroesophageal reflux disease without esophag*03/27/2023 Delusions (HCC) [F22] 03/28/2023 Bilateral edema of lower extremity [R60.0] 07/17/2023 Constipation [K59.00] 11/26/2023 Lung nodules [R91.8] 04/30/2024 History of cigarette smoking [Z87.891] 04/30/2024 PVD (peripheral vascular disease) [I73.9] 07/26/2024 Iliac artery aneurysm, left [I72.3] 09/03/2024 Encounter Status:Closed by KEMI BAIG on 11/29/24 [facility] Erika 11-23-2024 CNOV Office Visit ([facility] ) SHAWNA PRAJAPATI ([id number]) 1965 M Date Time Provider Department 11/23/24 2:45 PM ALISSA RACHEL During your visit today, we recorded the following information about you: Pulse Blood pressure 60/minute 102/71 Alissa Rachel, DO 11/23/2024 5:24 PM Signed [facility]GERY OUTPATIENT VISIT DATE November 23, 2024 OUTPATIENT VISIT TYPE ESTABLISHED SERVICE DATE: 11/23/2024 SERVICE TIME: 2:55 PM PRIMARY CARE PHYSICIAN: Samir Jordan MD HISTORY OF PRESENT ILLNESS: Mr. Prajapati is a 59 year old male who presents today for a vascular surgery follow-up visit after venous reflux testing. PAST MEDICAL HISTORY Diagnosis Date Asthma ([facility]) 1990 Chronic deep vein thrombosis (DVT) of calf muscle vein of right lower extremity ([facility]) 03/27/2023 COPD (chronic obstructive pulmonary disease) ([facility]) 2021 Coronary artery disease COVID-19 07/05/2021 EIC (epidermal inclusion cyst) 11/26/2019 Fibromyalgia 10/28/2016 Folliculitis 11/26/2019 GERD (gastroesophageal reflux disease) 01/27/2019 Hyperlipidemia 07/17/2021 Hypertension 07/17/2021 Inguinal hernia Irregular heartbeat NSTEMI (non-ST elevation myocardial infarction) ([facility]) 05/03/2020 [place], [place] MARGARITO on CPAP 2012 with nocturnal O2. Pancreatitis, chronic ([facility]) 09/07/2019 Seborrheic dermatitis 11/26/2019 Shingles outbreak 09/12/2021 Spinal stenosis, lumbar region with neurogenic claudication 11/20/2015 PAST SURGICAL HISTORY Procedure Laterality Date CC CORONARY STENT 05/04/2020 [facility] to LAD AND Circ, [facility] HERNIA REPAIR HX Right 1965 inguinal HERNIA REPAIR HX Left 1990 inguinal HERNIA REPAIR HX 07/27/2024 LAMINECTOMY,LUMBAR 11/08/2021 Dr. Cristóbal Maldonado LAP HERNIA REPAIR W/MESH 07/27/2024 SOCIAL HISTORY Social History Tobacco Use Smoking status: Former Current packs/day: 0.00 Average packs/day: 3.0 packs/day for 38.8 years (116.4 ttl pk-yrs) Types: Cigarettes Start date: 1981 Quit date: 05/02/2020 Years since quittin.5 Smokeless tobacco: Former Types: Snuff Quit date: 05/02/2020 Tobacco comments: Age 16-05/02/2019 Vaping Use Vaping status: Former Substance Use Topics Alcohol use: Not Currently Drug use: Never MEDICATIONS: albuterol (PROVENTIL) 2.5 mg /3 mL (0.083 %) nebulizer solution Use one vial every 4 hours as needed for wheezing/shortness of breath. Use over 5-15minutes. aspirin, enteric coated (ASPIRIN, ENTERIC COATED) 81 mg EC tablet Take 1 tablet by mouth once daily. metoprolol tartrate, short acting, (LOPRESSOR) 25 mg tablet Take 1 tablet by mouth two times a day. albuterol HFA (PROVENTIL HFA, VENTOLIN HFA) 90 mcg/actuation inhaler Inhale 2 puffs as instructed every 4 hours as needed. rivaroxaban (XARELTO) 20 mg tablet Take 1 tablet by mouth daily with dinner. lisinopril (ZESTRIL) 5 mg tablet Take 1 tablet by mouth once daily. BREZTRI AEROSPHERE 160-9-4.8 mcg/actuation HFA aerosol inhaler INHALE 2 PUFFS BY MOUTH TWICE DAILY DIRECTED fluticasone (FLONASE ALLERGY RELIEF) 50 mcg/actuation nasal spray Use 2 Sprays in each nostril once daily. montelukast (SINGULAIR) 10 mg tablet Take 1 tablet by mouth daily at bedtime. omeprazole (PRILOSEC) 40 mg capsule Take 1 capsule by mouth once daily. chlorthalidone (HYGROTON) 25 mg tablet Take 1 tablet by mouth once daily. ALLERGIES: ALLERGIES Allergen Reactions Cabbage Other: See Comments dysphagia Lettuce Other: See Comments dysphagia Onion Extract Vomiting Garlic Oil GI Upset Nut - Unspecified Anaphylaxis ALL NUTS PHYSICAL EXAM: BP 102/71 (BP Site: Right Arm, BP Position: Sitting, BP Cuff Size: Regular Adult) Pulse 60 SpO2 97% General: Alert and oriented Integumentary: Normal color, no rash, no lesions. HEENT: EOM, pupils equal, round and reactive. Cardiovascular: Pulse regular. Lungs: No chest deformities or chest wall tenderness. Extremities: varicose veins bilaterally, trace edema Neurological: Normal cognition and motor skills. Diagnostic tests reviewed for today's visit: Most recent labs Most recent imaging Venous Reflux Testing RIGHT SIDE - DEEP VEINS Negative for acute deep vein thrombosis in vessels visualized. Positive for valvular incompetency in the common femoral vein. RIGHT SIDE - SUPERFICIAL VEINS Positive for valvular incompetency in the great saphenous vein. Incompetent GSV follows straight path to knee leads to several branches. Incompetent medical radiation therapist communicates at GSV at knee. Negative for valvular incompetency in the small saphenous vein. Negative for superficial thrombophlebitis in the great saphenous vein and small saphenous vein. LEFT SIDE - DEEP VEINS Negative for acute deep vein thrombosis in vessels visualized. Positive for valvular incompeten (more content not included)... Normal [facility] VENOUS INCOMPETENCY CARO V LABon 11-15-2024 VENOUS INCOMPETENCY CARO VAS LAB Non-Invasive Vascular Laboratory [facility] Venous Valvular Incompetency Bilateral/Complete Date of service/time: 11/15/2024 1:46:56 PM Name: MR. SHAWNA PRAJAPATI Date of : 1965 Age: 59 years Gender: M Clinical Indication Lower extremity swelling and varicose veins. TECHNIQUE -------- A venous duplex ultrasound examination was performed, including grayscale imaging with compression maneuvers and color Doppler and spectral Doppler examination with augmentation maneuvers and response to respiration of the below mentioned veins. FINDINGS -------- Patient position reverse Trendelenburg 45 degrees. RIGHT SIDE Method of augmentation: manual. Common femoral vein Doppler: normal flow. Compression: normal. Femoral vein Doppler: normal flow. Compression: normal. Popliteal vein Doppler: normal flow. Compression: normal. Great saphenous vein Compression: normal. Small saphenous vein Compression: normal. RIGHT GREAT SAPHENOUS VEIN Saphenofemoral junction Valsalva reflux greater than or equal to 0.5 second. Size 0.79 cm. Proximal thigh Augmentation reflux greater than or equal to 0.5 second. Size 0.56 cm. Mid thigh Augmentation reflux greater than or equal to 0.5 second. Size 0.56 cm. Distal thigh Augmentation reflux greater than or equal to 0.5 second. Size 0.51 cm. At Knee Augmentation reflux greater than or equal to 0.5 second. Size 0.62 cm. Proximal calf Augmentation reflux greater than or equal to 0.5 second. Size 0.41 cm. Mid calf Augmentation reflux greater than or equal to 0.5 second. Size 0.39 cm. Distal calf Augmentation reflux greater than or equal to 0.5 second. Size 0.34 cm. RIGHT SMALL SAPHENOUS VEIN Saphenopopliteal junction Size 0.16 cm. Proximal calf Size 0.18 cm. RIGHT BRANCHES AND PERFORATORS Canvas Cutter Machine vein at knee to GSV Augmentation reflux none. Size 0.32 cm. Varicosity off GSV knee Augmentation reflux greater than or equal to 0.5 second. Size 0.35 cm. Varicosity at knee off GSV Augmentation reflux greater than or equal to 0.5 second. Size 0.46 cm. Varicosity at knee off GSV Augmentation reflux greater than or equal to 0.5 second. Size 0.43 cm. Varicosity at knee off GSV Augmentation reflux greater than or equal to 0.5 second. Size 0.40 cm. Canvas Cutter Machine vein mid calf Augmentation reflux greater than or equal to 0.5 second. Size 0.40 cm. Varicosity off mid calf GSV Augmentation reflux greater than or equal to 0.5 second. Size 0.34 cm. LEFT SIDE Method of augmentation: manual. Common femoral vein Doppler: normal flow. Compression: normal. Femoral vein Doppler: normal flow. Compression: normal. Popliteal vein Doppler: normal flow. Compression: normal. Great saphenous vein Compression: normal. Small saphenous vein Compression: normal. LEFT GREAT SAPHENOUS VEIN Saphenofemoral junction Valsalva reflux greater than or equal to 0.5 second. Size 0.83 cm. Proximal thigh Augmentation reflux none. Size 0.50 cm. Mid calf Augmentation reflux greater than or equal to 0.5 second. Size 0.39 cm. Distal calf Augmentation reflux greater than or equal to 0.5 second. Size 0.34 cm. LEFT SMALL SAPHENOUS VEIN Saphenopopliteal junction Augmentation reflux none. Size 0.17 cm. Proximal calf Augmentation reflux none. Size 0.16 cm. LEFT BRANCHES AND PERFORATORS Canvas Cutter Machine vein proximal thigh to GSV Augmentation reflux greater than or equal to 0.5 second. Size 0.40 cm. Canvas Cutter Machine vein mid thigh to GSV Augmentation reflux greater than or equal to 0.5 second. Size 0.59 cm. Branch vein Mid thigh Augmentation reflux greater than or equal to 0.5 second. Size 0.57 cm. Branch vein distal thigh Augmentation reflux greater than or equal to 0.5 second. Size 0.57 cm. Branch vein at knee Augmentation reflux greater than or equal to 0.5 second. Size 0.31 cm. Varicosity off GSV branch at knee Augmentation reflux greater than or equal to 0.5 second. Size 0.75 cm. Varicosity off GSV branch at knee Augmentation reflux greater than or equal to 0.5 second. Size 0.51 cm. Varicosity off GSV branch at knee Augmentation reflux greater than or equal to 0.5 second. Size 0.49 cm. IMPRESSION RIGHT SIDE - DEEP VEINS Negative for acute deep vein thrombosis in vessels visualized. Positive for valvular incompetency in the common femoral vein. RIGHT SIDE - SUPERFICIAL VEINS Positive for valvular incompetency in the great saphenous vein. Incompetent GSV follows straight path to knee leads to several branches. Incompetent medical radiation therapist communicates at GSV at knee. Negative for valvular incompetency in the small saphenous vein. Negative for superficial thrombophlebitis in the great saphenous vein and small saphenous vein. LEFT SIDE - DEEP VEINS Negative for acute deep vein thro (more content not included)... Normal [facility] US Vein - bilateralon 2024 Non-Invasive Vascular Laboratory [facility] Venous Valvular Incompetency Bilateral/Complete Date of service/time: 11/15/2024 1:46:56 PM Name: MR. SHAWNA PRAJAPATI Date of : 1965 Age: 59 years Gender: M Clinical Indication Lower extremity swelling and varicose veins. TECHNIQUE -------- A venous duplex ultrasound examination was performed, including grayscale imaging with compression maneuvers and color Doppler and spectral Doppler examination with augmentation maneuvers and response to respiration of the below mentioned veins. FINDINGS -------- Patient position reverse Trendelenburg 45 degrees. RIGHT SIDE Method of augmentation: manual. Common femoral vein Doppler: normal flow. Compression: normal. Femoral vein Doppler: normal flow. Compression: normal. Popliteal vein Doppler: normal flow. Compression: normal. Great saphenous vein Compression: normal. Small saphenous vein Compression: normal. RIGHT GREAT SAPHENOUS VEIN Saphenofemoral junction Valsalva reflux greater than or equal to 0.5 second. Size 0.79 cm. Proximal thigh Augmentation reflux greater than or equal to 0.5 second. Size 0.56 cm. Mid thigh Augmentation reflux greater than or equal to 0.5 second. Size 0.56 cm. Distal thigh Augmentation reflux greater than or equal to 0.5 second. Size 0.51 cm. At Knee Augmentation reflux greater than or equal to 0.5 second. Size 0.62 cm. Proximal calf Augmentation reflux greater than or equal to 0.5 second. Size 0.41 cm. Mid calf Augmentation reflux greater than or equal to 0.5 second. Size 0.39 cm. Distal calf Augmentation reflux greater than or equal to 0.5 second. Size 0.34 cm. RIGHT SMALL SAPHENOUS VEIN Saphenopopliteal junction Size 0.16 cm. Proximal calf Size 0.18 cm. RIGHT BRANCHES AND PERFORATORS Canvas Cutter Machine vein at knee to GSV Augmentation reflux none. Size 0.32 cm. Varicosity off GSV knee Augmentation reflux greater than or equal to 0.5 second. Size 0.35 cm. Varicosity at knee off GSV Augmentation reflux greater than or equal to 0.5 second. Size 0.46 cm. Varicosity at knee off GSV Augmentation reflux greater than or equal to 0.5 second. Size 0.43 cm. Varicosity at knee off GSV Augmentation reflux greater than or equal to 0.5 second. Size 0.40 cm. Canvas Cutter Machine vein mid calf Augmentation reflux greater than or equal to 0.5 second. Size 0.40 cm. Varicosity off mid calf GSV Augmentation reflux greater than or equal to 0.5 second. Size 0.34 cm. LEFT SIDE Method of augmentation: manual. Common femoral vein Doppler: normal flow. Compression: normal. Femoral vein Doppler: normal flow. Compression: normal. Popliteal vein Doppler: normal flow. Compression: normal. Great saphenous vein Compression: normal. Small saphenous vein Compression: normal. LEFT GREAT SAPHENOUS VEIN Saphenofemoral junction Valsalva reflux greater than or equal to 0.5 second. Size 0.83 cm. Proximal thigh Augmentation reflux none. Size 0.50 cm. Mid calf Augmentation reflux greater than or equal to 0.5 second. Size 0.39 cm. Distal calf Augmentation reflux greater than or equal to 0.5 second. Size 0.34 cm. LEFT SMALL SAPHENOUS VEIN Saphenopopliteal junction Augmentation reflux none. Size 0.17 cm. Proximal calf Augmentation reflux none. Size 0.16 cm. LEFT BRANCHES AND PERFORATORS Canvas Cutter Machine vein proximal thigh to GSV Augmentation reflux greater than or equal to 0.5 second. Size 0.40 cm. Canvas Cutter Machine vein mid thigh to GSV Augmentation reflux greater than or equal to 0.5 second. Size 0.59 cm. Branch vein Mid thigh Augmentation reflux greater than or equal to 0.5 second. Size 0.57 cm. Branch vein distal thigh Augmentation reflux greater than or equal to 0.5 second. Size 0.57 cm. Branch vein at knee Augmentation reflux greater than or equal to 0.5 second. Size 0.31 cm. Varicosity off GSV branch at knee Augmentation reflux greater than or equal to 0.5 second. Size 0.75 cm. Varicosity off GSV branch at knee Augmentation reflux greater than or equal to 0.5 second. Size 0.51 cm. Varicosity off GSV branch at knee Augmentation reflux greater than or equal to 0.5 second. Size 0.49 cm. IMPRESSION RIGHT SIDE - DEEP VEINS Negative for acute deep vein thrombosis in vessels visualized. Positive for valvular incompetency in the common femoral vein. RIGHT SIDE - SUPERFICIAL VEINS Positive for valvular incompetency in the great saphenous vein. Incompetent GSV follows straight path to knee leads to several branches. Incompetent medical radiation therapist communicates at GSV at knee. Negative for valvular incompetency in the small saphenous vein. Negative for superficial thrombophlebitis in the great saphenous vein and small saphenous vein. LEFT SIDE - DEEP VEINS Neg (more content not included)... [facility] Neel[place] 11-12-2024 [place] Telephone ([facility]) SHAWNA PRAJAPATI ([id number]) 1965 M Date Time Provider Department 11/12/24 SAMIR JORDAN During your visit today, we recorded the following information about you: Kwabena Phelan 11/12/2024 4:23 PM Signed Patient called in wanting to know if the providers or clinic could help him with finding senior citizen housing/ housing, unsure if geriatric social work professor could possibly help. Sophia Pal MSW 11/15/2024 1:30 PM Signed Sw called patient to discuss housing needs. Patient reports that the property institution director and study manager where he lives are bothdumber then dog crap. Patient reports that he does have a case manage Tyler Gardiner through [facility]. Patient stateshe is no help and worthless. Sw asked patient about [employer] for help with housing support. Patient states [employer] does not do anything write. Patient states I am at an appt and will need you to call me back another time. Sw will try patient back another day. Sophia Pal MSW 11/17/2024 12:53 PM Signed Sw left patient message in regards to housing and if patient has any further housing assistance needs to let this SW know. Sophia Pal MSW 11/18/2024 3:50 PM Signed Patient reports that his residential case manager though counseling center is working actively on locating housing. Patient reports that the thought he found an apt, but it was a 2 bedroom and they would only rent to a couple. Patient notes that he may have a rental possibility that patient is looking in to regarding apt option. This Sw noted that if she learns of any rental housing options that are available, she will reach out to patient. Allergies As of Date: 11/12/2024 Noted Allergy Reaction CABBAGE 11/09/2021 14 - Other: See Comments Comments: dysphagia LETTUCE 11/09/2021 14 - Other: See Comments Comments: dysphagia ONION EXTRACT 11/09/2021 11 - Vomiting GARLIC OIL 07/02/2022 8 - GI Upset NUT - UNSPECIFIED 08/30/2024 10 - Anaphylaxis Comments: ALL NUTS Date Reviewed: 10/19/2024 Reviewed by: Shayy Vasquez OCCA - Fully Assessed Reason for Visit: Patient Question [0357] Prescriptions as of 11/18/2024 - albuterol (PROVENTIL) 2.5 mg /3 mL (0.083 %) nebulizer solution Use one vial every 4 hours as needed for wheezing/shortness of breath. Use over 5-15minutes. - aspirin, enteric coated (ASPIRIN, ENTERIC COATED) 81 mg EC tablet Take 1 tablet by mouth once daily. - metoprolol tartrate, short acting, (LOPRESSOR) 25 mg tablet Take 1 tablet by mouth two times a day. - albuterol HFA (PROVENTIL HFA, VENTOLIN HFA) 90 mcg/actuation inhaler Inhale 2 puffs as instructed every 4 hours as needed. - rivaroxaban (XARELTO) 20 mg tablet Take 1 tablet by mouth daily with dinner. - lisinopril (ZESTRIL) 5 mg tablet Take 1 tablet by mouth once daily. - BREZTRI AEROSPHERE 160-9-4.8 mcg/actuation HFA aerosol inhaler INHALE 2 PUFFS BY MOUTH TWICE DAILY DIRECTED - fluticasone (FLONASE ALLERGY RELIEF) 50 mcg/actuation nasal spray Use 2 Sprays in each nostril once daily. - montelukast (SINGULAIR) 10 mg tablet Take 1 tablet by mouth daily at bedtime. - omeprazole (PRILOSEC) 40 mg capsule Take 1 capsule by mouth once daily. - chlorthalidone (HYGROTON) 25 mg tablet Take 1 tablet by mouth once daily. Problem List As Of Date 11/12/2024 Noted Resolved EIC (epidermal inclusion cyst) [L72.0] 11/26/2019 05/17/2022 Folliculitis [L73.9] 11/26/2019 05/17/2022 Seborrheic dermatitis [L21.9] 11/26/2019 Asthma [J45.909] 1990 COPD (chronic obstructive pulmonary disease) (H*2021 MARGARITO on CPAP [G47.33] 2013 Hyperlipidemia [E78.5] 07/17/2021 Hypertension [I10] 07/17/2021 Coronary artery disease involving pechanga heart *08/15/2022 Obesity, Class I, BMI 30-34.9 [E66.811] 12/26/2022 Homelessness [Z59.00] 12/26/2022 Chronic deep vein thrombosis (DVT) of calf musc*03/27/2023 Gastroesophageal reflux disease without esophag*03/27/2023 Delusions (HCC) [F22] 03/28/2023 Bilateral edema of lower extremity [R60.0] 07/17/2023 Constipation [K59.00] 11/26/2023 Lung nodules [R91.8] 04/30/2024 History of cigarette smoking [Z87.891] 04/30/2024 PVD (peripheral vascular disease) [I73.9] 07/26/2024 Iliac artery aneurysm, left [I72.3] 09/03/2024 Encounter Status:Closed by SOPHIA PAL on 11/18/24 [facility] Neelima 11-11-2024 CNPN Telephone (GENSWS) SHAWNA PRAJAPATI ([id number]) 1965 M Date Time Provider Department 11/11/24 MICHELLE CASTANEDA During your visit today, we recorded the following information about you: Jackie Lackey, RN 11/11/2024 12:13 PM Signed Patient calling in with request for a letter for his landlord stating that can not walk up stairs due to hernia repair. Patient starts becoming more agitated on the phone as he explains other people have been evicted and that they are wanting evict him. Patient starts cussing at this nurse. This nurse asked the patient to please refrain from cussing at her and she understands that he is upset. Laparoscopic hernia repair was 07/27/24 No restrictions noted in Last office visit with Dr. Castaneda on 09/15/24. The following plan noted: PLAN: If the patient notes any problems or signs of wound infections, he should contact me immediately. The patient was recommended to be careful with lifting and avoid lifting heavy items that would cause him muscle strain and discomfort in the area. The hernia repair appears intact. From the standpoint of his repair he is now 8 weeks post and that he sites should be well-healed. The following plan noted from 08/11/24 visit with Victoria Jurado: PLAN: Post-op patient instructions were reviewed with the patient. I have explained to Mr. Prajapati that he may return to normal activity with the following restrictions: No heavy lifting, pushing, or pulling greater than 20 lbs for 8 weeks post-operatively. We discussed thoroughly the reason for the restrictions and he acknowledges potential adverse effects of not following the activity restrictions. I have encouraged him to contact me at any time with any questions or concerns that may arise. Patient becoming more upset when notified that no restrictions were noted. This nurse offered to send a message to Dr. Castaneda with patient request/question or sent him up with an appointment to see a provider. Patient keeps stating that he was told something different at his 09/15/24 appointment regarding incisional healing and states that he is going to contact his telemedicine physician due to feeling like he is getting inconsistent information. Due to patient raising voice at this nurse and becoming increasing agitated this nurse requested that he take a deep breath and allow her offer him the assistance that she can. The patient proceeded to yell How does it feel! I have something to say! [facility] [place] sucks! Patient hung up the phone. Filiberto Haley LPN 11/12/2024 4:15 PM Signed Called patient. No answer- left message. Patient is asking for restrictions despite Dr. Castaneda noting no restrictions as of . Patient can schedule an appointment with a provider if new issues GI are happening or he can see his PCP. Filiberto Haley LPN Allergies As of Date: 11/11/2024 Noted Allergy Reaction CABBAGE 11/09/2021 14 - Other: See Comments Comments: dysphagia LETTUCE 11/09/2021 14 - Other: See Comments Comments: dysphagia ONION EXTRACT 11/09/2021 11 - Vomiting GARLIC OIL 07/02/2022 8 - GI Upset NUT - UNSPECIFIED 08/30/2024 10 - Anaphylaxis Comments: ALL NUTS Date Reviewed: 10/19/2024 Reviewed by: Shayy Vasquez OCCA - Fully Assessed Reason for Visit: Activity Restrictions [Other] Prescriptions as of 11/25/2024 - albuterol (PROVENTIL) 2.5 mg /3 mL (0.083 %) nebulizer solution Use one vial every 4 hours as needed for wheezing/shortness of breath. Use over 5-15minutes. - aspirin, enteric coated (ASPIRIN, ENTERIC COATED) 81 mg EC tablet Take 1 tablet by mouth once daily. - metoprolol tartrate, short acting, (LOPRESSOR) 25 mg tablet Take 1 tablet by mouth two times a day. - albuterol HFA (PROVENTIL HFA, VENTOLIN HFA) 90 mcg/actuation inhaler Inhale 2 puffs as instructed every 4 hours as needed. - rivaroxaban (XARELTO) 20 mg tablet Take 1 tablet by mouth daily with dinner. - lisinopril (ZESTRIL) 5 mg tablet Take 1 tablet by mouth once daily. - BREZTRI AEROSPHERE 160-9-4.8 mcg/actuation HFA aerosol inhaler INHALE 2 PUFFS BY MOUTH TWICE DAILY DIRECTED - fluticasone (FLONASE ALLERGY RELIEF) 50 mcg/actuation nasal spray Use 2 Sprays in each nostril once daily. - montelukast (SINGULAIR) 10 mg tablet Take 1 tablet by mouth daily at bedtime. - omeprazole (PRILOSEC) 40 mg capsule Take 1 capsule by mouth once daily. - chlorthalidone (HYGROTON) 25 mg tablet Take 1 tablet by mouth once daily. Problem List As Of Date 11/11/2024 Noted Resolved EIC (epidermal inclusion cyst) [L72.0] 11/26/2019 05/17/2022 Folliculitis [L73.9] 11/26/2019 05/17/2022 Seborrheic dermatitis [L21.9] 11/26/2019 Asthma [J45.909] 1990 COPD (chronic obstructive pulmonary disease) (H*2021 MARGARITO on CPAP [G47.33] 2013 Hyperlipidemia [E78.5] 07/17/2021 Hypertension [I10] 07/17/2021 Coronary artery disease i (more content not included)... Normal [facility] CNPN Telephone (INTMWS) SHAWNA PRAJAPATI ([id number]) 1965 M Date Time Provider Department 11/11/24 SAMIR JORDAN INTMWS During your visit today, we recorded the following information about you: Abbie Davis RN 11/11/2024 12:23 PM Signed Patient calling in and states the Ordnance Keeper of the home he is currently residing at is trying to get him to move out of the home at the end of this month. Pt is requesting his PCP write a letter to give to the Ordnance Keeper that states that patient is not to move out/be evicted until he can find appropriate alternative housing due to his medical conditions of asthma, MARGARITO with CPAP, and arterial aneurysm near his groin awaiting vascular surgery. Pt reports he has a Clinical Admissions Manager who assists him with housing that he has been in contact with. Pt states he would like to come package pick up the letter, once it's completed, if provider agreeable to completing request. Please call patient with an update, . STAR Alejandre Naz M, 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.[facility] 11/12/2024 7:19 AM Signed Letter completed Leah Shaikh APRN.Homero Arzola MA 11/12/2024 12:17 PM Signed Letter is ready and at medical records for package pick up and patient notified Homero Carrasco Allergies As of Date: 11/11/2024 Noted Allergy Reaction CABBAGE 11/09/2021 14 - Other: See Comments Comments: dysphagia LETTUCE 11/09/2021 14 - Other: See Comments Comments: dysphagia ONION EXTRACT 11/09/2021 11 - Vomiting GARLIC OIL 07/02/2022 8 - GI Upset NUT - UNSPECIFIED 08/30/2024 10 - Anaphylaxis Comments: ALL NUTS Date Reviewed: 10/19/2024 Reviewed by: Shayy Vasquez OCCA - Fully Assessed Reason for Visit: Letter Request [Other] Prescriptions as of 11/12/2024 - albuterol (PROVENTIL) 2.5 mg /3 mL (0.083 %) nebulizer solution Use one vial every 4 hours as needed for wheezing/shortness of breath. Use over 5-15minutes. - aspirin, enteric coated (ASPIRIN, ENTERIC COATED) 81 mg EC tablet Take 1 tablet by mouth once daily. - metoprolol tartrate, short acting, (LOPRESSOR) 25 mg tablet Take 1 tablet by mouth two times a day. - albuterol HFA (PROVENTIL HFA, VENTOLIN HFA) 90 mcg/actuation inhaler Inhale 2 puffs as instructed every 4 hours as needed. - rivaroxaban (XARELTO) 20 mg tablet Take 1 tablet by mouth daily with dinner. - lisinopril (ZESTRIL) 5 mg tablet Take 1 tablet by mouth once daily. - BREZTRI AEROSPHERE 160-9-4.8 mcg/actuation HFA aerosol inhaler INHALE 2 PUFFS BY MOUTH TWICE DAILY DIRECTED - fluticasone (FLONASE ALLERGY RELIEF) 50 mcg/actuation nasal spray Use 2 Sprays in each nostril once daily. - montelukast (SINGULAIR) 10 mg tablet Take 1 tablet by mouth daily at bedtime. - omeprazole (PRILOSEC) 40 mg capsule Take 1 capsule by mouth once daily. - chlorthalidone (HYGROTON) 25 mg tablet Take 1 tablet by mouth once daily. Problem List As Of Date 11/11/2024 Noted Resolved EIC (epidermal inclusion cyst) [L72.0] 11/26/2019 05/17/2022 Folliculitis [L73.9] 11/26/2019 05/17/2022 Seborrheic dermatitis [L21.9] 11/26/2019 Asthma [J45.909] 1990 COPD (chronic obstructive pulmonary disease) (H*2021 MARGARITO on CPAP [G47.33] 2012 Hyperlipidemia [E78.5] 07/17/2021 Hypertension [I10] 07/17/2021 Coronary artery disease involving pechanga heart *08/15/2022 Obesity, Class I, BMI 30-34.9 [E66.811] 12/26/2022 Homelessness [Z59.00] 12/26/2022 Chronic deep vein thrombosis (DVT) of calf musc*03/27/2023 Gastroesophageal reflux disease without esophag*03/27/2023 Delusions (HCC) [F22] 03/28/2023 Bilateral edema of lower extremity [R60.0] 07/17/2023 Constipation [K59.00] 11/26/2023 Lung nodules [R91.8] 04/30/2024 History of cigarette smoking [Z87.891] 04/30/2024 PVD (peripheral vascular disease) [I73.9] 07/26/2024 Iliac artery aneurysm, left [I72.3] 09/03/2024 Letter Text Encounter Status:Closed by HOMERO CARRASCO on 11/12/24 [facility]20[facility] PRAJAPATI ([id number]) 1965 M Date Time Provider Department 10/20/24 LEAH SHAIKH INTWS During your visit today, we recorded the following information about you: Abbie Davis, STAR 10/20/2024 11:05 AM Signed Patient calling and asking if provider will type a note that states that due to his medical conditions, he needs to have air conditioning. Reports that he is living with others at a residence in [place] and one other resident there has removed the air conditioning control box last night, and pt does not have air conditioning currently. Pt states there is an institution director of the home and a Ordnance Keeper also. He has contacted the institution director who said to contact Ordnance Keeper. Pt contacted Ordnance Keeper by text and has not received a reply back yet. Expresses his frustration. States he is thinking of getting an dumb waiter operator involved. Patient states he would package pick up the letter when it was completed, if provider is agreeable to completing this. Please call patient with update. [phone] STAR Alejandre Helen E, LPN 10/26/2024 3:29 PM Signed Patient notified letter written AND faxed to [facility]. Promise Bernal LPN Allergies As of Date: 10/20/2024 Noted Allergy Reaction CABBAGE 11/09/2021 14 - Other: See Comments Comments: dysphagia LETTUCE 11/09/2021 14 - Other: See Comments Comments: dysphagia ONION EXTRACT 11/09/2021 11 - Vomiting GARLIC OIL 07/02/2022 8 - GI Upset NUT - UNSPECIFIED 08/30/2024 10 - Anaphylaxis Comments: ALL NUTS Date Reviewed: 10/19/2024 Reviewed by: Shayy Vasquez OCCA - Fully Assessed Reason for Visit: Letter Request [Other] Prescriptions as of 10/26/2024 - albuterol (PROVENTIL) 2.5 mg /3 mL (0.083 %) nebulizer solution Use one vial every 4 hours as needed for wheezing/shortness of breath. Use over 5-15minutes. - aspirin, enteric coated (ASPIRIN, ENTERIC COATED) 81 mg EC tablet Take 1 tablet by mouth once daily. - metoprolol tartrate, short acting, (LOPRESSOR) 25 mg tablet Take 1 tablet by mouth two times a day. - albuterol HFA (PROVENTIL HFA, VENTOLIN HFA) 90 mcg/actuation inhaler Inhale 2 puffs as instructed every 4 hours as needed. - rivaroxaban (XARELTO) 20 mg tablet Take 1 tablet by mouth daily with dinner. - lisinopril (ZESTRIL) 5 mg tablet Take 1 tablet by mouth once daily. - BREZTRI AEROSPHERE 160-9-4.8 mcg/actuation HFA aerosol inhaler INHALE 2 PUFFS BY MOUTH TWICE DAILY DIRECTED - fluticasone (FLONASE ALLERGY RELIEF) 50 mcg/actuation nasal spray Use 2 Sprays in each nostril once daily. - montelukast (SINGULAIR) 10 mg tablet Take 1 tablet by mouth daily at bedtime. - omeprazole (PRILOSEC) 40 mg capsule Take 1 capsule by mouth once daily. - chlorthalidone (HYGROTON) 25 mg tablet Take 1 tablet by mouth once daily. Problem List As Of Date 10/20/2024 Noted Resolved EIC (epidermal inclusion cyst) [L72.0] 11/26/2019 05/17/2022 Folliculitis [L73.9] 11/26/2019 05/17/2022 Seborrheic dermatitis [L21.9] 11/26/2019 Asthma [J45.909] 1990 COPD (chronic obstructive pulmonary disease) (H*2021 MARGARITO on CPAP [G47.33] 2012 Hyperlipidemia [E78.5] 07/17/2021 Hypertension [I10] 07/17/2021 Coronary artery disease involving pechanga heart *08/15/2022 Obesity, Class I, BMI 30-34.9 [E66.811] 12/26/2022 Homelessness [Z59.00] 12/26/2022 Chronic deep vein thrombosis (DVT) of calf musc*03/27/2023 Gastroesophageal reflux disease without esophag*03/27/2023 Delusions (HCC) [F22] 03/28/2023 Bilateral edema of lower extremity [R60.0] 07/17/2023 Constipation [K59.00] 11/26/2023 Lung nodules [R91.8] 04/30/2024 History of cigarette smoking [Z87.891] 04/30/2024 PVD (peripheral vascular disease) [I73.9] 07/26/2024 Iliac artery aneurysm, left [I72.3] 09/03/2024 Letter Text Encounter Status:Closed by PROMISE BERNAL on 10/26/24 [facility] CNOVdianne 10-19-2024 CNOV Office Visit (VASSWS ) SHAWNA PRAJAPATI ([id number]) 1965 M Date Time Provider Department 10/19/24 11:00 AM ALISSA RACHEL During your visit today, we recorded the following information about you: Pulse Blood pressure 68/minute 110/64 Alissa Rachel, DO 11/16/2024 5:31 PM Signed [facility] DEPART[facility] OF VASCULAR SURGERY OUTPATIENT VISIT DATE October 19, 2024 OUTPATIENT VISIT TYPE CONSULTATION SERVICE DATE: 10/19/2024 SERVICE TIME: 11:33 AM PRIMARY CARE PHYSICIAN: Samir Jordan MD REFERRING PROVIDER: Leah Shaikh [address] [facility] [id number] Consult requested for an opinion regarding the evaluation and treatment of the above. My final impression and recommendations will be communicated back to the requesting physician by way of the shared medical record or letter via [place] mail. CHIEF COMPLAINT: Iliac artery aneurysm HISTORY OF PRESENT ILLNESS: Vascular consultation at the request of Dr. Leah Shaikh. A copy of this consultation note will be provided to the requesting physician by way of shared Medical record or letter to requesting physician via US mail. Mr. Prajapati is a 59 year old male who is seen today for left internal iliac artery aneurysm. He does report bilateral lower extremity cramping especially at night- bilateral hips and thighs. He also reports fullness noted. He is very concerned about aneurysm and he was told he had issues with circulation returning back to his heart. PAST MEDICAL HISTORY Diagnosis Date Asthma ([facility]) 1990 Chronic deep vein thrombosis (DVT) of calf muscle vein of right lower extremity ([facility]) 03/27/2023 COPD (chronic obstructive pulmonary disease) ([facility]) 2021 Coronary artery disease COVID-19 07/05/2021 EIC (epidermal inclusion cyst) 11/26/2019 Fibromyalgia 10/28/2016 Folliculitis 11/26/2019 GERD (gastroesophageal reflux disease) 01/27/2019 Hyperlipidemia 07/17/2021 Hypertension 07/17/2021 Inguinal hernia Irregular heartbeat NSTEMI (non-ST elevation myocardial infarction) ([facility]) 05/03/2020 [place], [place] MARGARITO on CPAP 2012 with nocturnal O2. Pancreatitis, chronic ([facility]) 09/07/2019 Seborrheic dermatitis 11/26/2019 Shingles outbreak 09/12/2021 Spinal stenosis, lumbar region with neurogenic claudication 11/20/2015 PAST SURGICAL HISTORY Procedure Laterality Date CC CORONARY STENT 05/04/2020 [facility] to [facility], [facility] HERNIA REPAIR HX Right 1965 inguinal HERNIA REPAIR HX Left 1990 inguinal HERNIA REPAIR HX 07/27/2024 LAMINECTOMY,LUMBAR 11/08/2021 Dr. Cristóbal Maldonado LAP HERNIA REPAIR W/MESH 07/27/2024 SOCIAL HISTORY: Social History Tobacco Use Smoking status: Former Current packs/day: 0.00 Average packs/day: 3.0 packs/day for 38.8 years (116.4 ttl pk-yrs) Types: Cigarettes Start date: 1981 Quit date: 05/02/2020 Years since quittin.4 Smokeless tobacco: Former Types: Snuff Quit date: 05/02/2020 Tobacco comments: Age 16-05/02/2019 Vaping Use Vaping status: Former Substance Use Topics Alcohol use: Not Currently Drug use: Never FAMILY HISTORY Adopted: Yes Family history unknown: Yes MEDICATIONS: albuterol (PROVENTIL) 2.5 mg /3 mL (0.083 %) nebulizer solution Use one vial every 4 hours as needed for wheezing/shortness of breath. Use over 5-15minutes. aspirin, enteric coated (ASPIRIN, ENTERIC COATED) 81 mg EC tablet Take 1 tablet by mouth once daily. metoprolol tartrate, short acting, (LOPRESSOR) 25 mg tablet Take 1 tablet by mouth two times a day. albuterol HFA (PROVENTIL HFA, VENTOLIN HFA) 90 mcg/actuation inhaler Inhale 2 puffs as instructed every 4 hours as needed. rivaroxaban (XARELTO) 20 mg tablet Take 1 tablet by mouth daily with dinner. lisinopril (ZESTRIL) 5 mg tablet Take 1 tablet by mouth once daily. BREZTRI AEROSPHERE 160-9-4.8 mcg/actuation HFA aerosol inhaler INHALE 2 PUFFS BY MOUTH TWICE DAILY DIRECTED fluticasone (FLONASE ALLERGY RELIEF) 50 mcg/actuation nasal spray Use 2 Sprays in each nostril once daily. montelukast (SINGULAIR) 10 mg tablet Take 1 tablet by mouth daily at bedtime. omeprazole (PRILOSEC) 40 mg capsule Take 1 capsule by mouth once daily. chlorthalidone (HYGROTON) 25 mg tablet Take 1 tablet by mouth once daily. ALLERGIES: ALLERGIES Allergen Reactions Cabbage Other: See Comments dysphagia Lettuce Other: See Comments dysphagia Onion Extract Vomiting Garlic Oil GI Upset Nut - Unspecified Anaphylaxis ALL NUTS REVIEW OF SYSTEM: Constitutional: No weight loss, malaise or fevers. HEENT: Negative for frequent or significant headaches, Negative for significant change in vision and nasal discharge or nose bleeds, Ears Positive for hearing loss Respiratory: Positive for chronic cough and shortness of breath on exertion Cardiovascular: Negative for (more content not included)... Normal [facility] CNOVon 10-01-2024 CNOV Office Visit (INTMWS ) SHAWNA PRAJAPATI ([id number]) 1965 M Date Time Provider Department 10/01/24 1:00 PM LEAH SHAIKH INTMWS During your visit today, we recorded the following information about you: Pulse Respiration Blood pressure Weight 94/minute 12/minute 122/78 91.7 kg Leah Shaikh, 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 10/01/2024 1:03 PM Signed We discussed your blood pressure: - Your blood pressure today was 122/78, which is excellent. - Continue taking Lisinopril 5 mg daily as prescribed. This dosage appears to be working well for you. We discussed your asthma and inhaler use: - Continue using Breztri, 2 puffs twice daily, as your maintenance inhaler. This helps prevent asthma symptoms and reduces the need for your rescue inhaler. - Use Albuterol only as needed for emergencies, such as shortness of breath or chest tightness. If you find you are using more than one Albuterol inhaler per month, please let us know, as this may indicate your asthma is not well controlled. - Refills for Albuterol have been sent to your preferred pharmacy, [facility]. We discussed your artery aneurysm: - I will send a referral to a vascular specialist to evaluate and address the artery aneurysm near your groin. - Please stop at the front edger to schedule this appointment. Follow-up: - We will see you back in 6 months for a routine follow-up. - If you have any concerns or changes in your symptoms before then, please contact our office. Leah Shaikh, WILLIAM.ASSISTANT TODDLER TEACHER 10/01/2024 2:07 PM Signed CC: Patient presents with: Follow Up: 4 weeks BP HPI Recording using [employer] software for draft documentation of the visit was discussed with the patient/authorized patient portal representative; all questions welcomed and answered. Patient/authorized patient portal representative agreed to proceed Shawna Prajapati is a 59-year-old male with a history of HTN, asthma, and an arterial aneurysm, presenting for a blood pressure follow-up. Shawna reports confusion regarding his current medical management and expresses frustration with the coordination of his care. He mentions a recent CT scan of his abdomen, which was performed in the context of a hernia operation by Dr. Rai. The scan revealed an arterial aneurysm near his groin, described as a lump. He was informed that the condition could be managed with stent placement to improve blood flow. He has not yet been scheduled with vascular surgeon as recommended and would like assistance to facilitate appointment Shawna is currently taking lisinopril 5 mg daily for blood pressure control, which was recently adjusted from a higher dose due to episodes of hypotension. He reports that his blood pressure has been stable since the adjustment. He is also using Breztri inhaler, 2 puffs twice daily, as a maintenance medication for asthma. He has been using his albuterol inhaler more frequently than prescribed, taking 2 puffs in the morning and 2 in the afternoon because he thought he was instructed to take this way. He requests a refill for his albuterol inhaler. Review of Systems See HPI PAST MEDICAL HISTORY Diagnosis Date Asthma ([facility]) 1990 Chronic deep vein thrombosis (DVT) of calf muscle vein of right lower extremity ([facility]) 03/27/2023 COPD (chronic obstructive pulmonary disease) [facility] [place]) 2021 Coronary artery disease COVID-19 07/05/2021 EIC (epidermal inclusion cyst) 11/26/2019 Fibromyalgia 10/28/2016 Folliculitis 11/26/2019 GERD (gastroesophageal reflux disease) 01/27/2019 Hyperlipidemia 07/17/2021 Hypertension 07/17/2021 Inguinal hernia Irregular heartbeat NSTEMI (non-ST elevation myocardial infarction) (HCC) 05/03/2020 [place], [place] MARGARITO on CPAP 2012 with nocturnal O2. Pancreatitis, chronic (HCC) 09/07/2019 Seborrheic dermatitis 11/26/2019 Shingles outbreak 09/12/2021 Spinal stenosis, lumbar region with neurogenic claudication 11/20/2015 PAST SURGICAL HISTORY Procedure Laterality Date CC CORONARY STENT 05/04/2020 ARNOLD to LAD AND Circ, [facility] HERNIA REPAIR HX Right 1965 inguinal HERNIA REPAIR HX Left 1990 inguinal HERNIA REPAIR HX 07/27/2024 LAMINECTOMY,LUMBAR 11/08/2021 Dr. Cristóbal Maldonado LAP HERNIA REPAIR W/MESH 07/27/2024 ALLERGIES Cabbage, Lettuce, Onion Extract, Garlic Oil, and Nut - Unspecified MEDICATIONS rivaroxaban (XARELTO) 20 mg tablet Take 1 tablet by mouth daily with dinner. lisinopril (ZESTRIL) 5 mg tablet Take 1 tablet by mouth once daily. BREZTRI AEROSPHERE 160-9-4.8 mcg/actuation HFA aerosol inhaler INHALE 2 PUFFS BY MOUTH TWICE DAILY DIRECTED fluticasone (FLONASE ALLERGY RELIEF) 50 mcg/actuation nasal spray Use 2 Sprays in each nostril once daily. montelukast (SINGULAIR) 10 mg tablet Take 1 tablet by mouth daily at bedtime. omeprazole (PRILOSEC) 40 mg capsule Take 1 capsule by mouth once daily. aspirin, en (more content not included)... Normal [facility] CNOVon 09-15-2024 CNOV Office Visit (SWS ) SHAWNA PRAJAPATI ([id number]) 1965 M Date Time Provider Department 09/15/24 1:45 PM TONYA, MICHELLE T GENSWS During your visit today, we recorded the following information about you: Temperature Pulse Respiration Blood pressure 97.5 degrees 68/minute 16/minute 102/62 Weight Height 91.6 kg 1.702 m Michelle Castaneda MD 09/16/2024 8:34 AM Signed FOLLOW UP VISIT - POST OP NAME: Shawna Ochoa [facility] NO.: [id number] DATE OF SERVICE: 09/15/2024 : 1965 REFERRING PHYSICIAN: Samir Jordan MD Shawna is a patient I am following for a ventral hernia. He most recently presented to [facility] emergency department with complaint of worsening abdominal pain on May 31, 2024. He was noted to be on Xarelto at that time. On exam he was noted to be tender in the mid abdominal region. CT scan of the abdomen pelvis demonstrated a 2.6 cm left iliac aneurysm was felt to be a fat-containing inguinal hernia but no ventral hernia. It was recommended he follow-up with vascular surgery for his iliac aneurysm. I initially seen Shawna when he was a 56 year old male with a complaint of a bulge and discomfort in his mid abdomen. The patient notes discomfort in this area with pressing on the supraumbilical area. The symptoms have increased, over the past 3 months. The patient notes no symptoms of bowel obstruction and denies nausea or vomiting. The patient was seen by his primary care physician who felt the patient has a hernia. Shawna was referred for evaluation and treatment. On evaluation I suspect that he had a supraumbilical hernia but got approved so. I was also concerned given his past history that he could have a degree of cirrhosis and/or ascites. I obtained a CT scan of the abdomen pelvis. This was obtained on July 15, 2022. This demonstrated: IMPRESSION: 1. Small supraumbilical hernia with haziness of the fat suggesting some degree of inflammation. 2. 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 Suggest nonemergent vascular consult. 3. Hepatic steatosis. Patient has a history of asthma COPD. Spirometry notes an FVC of 69% predicted and an FEV1 of 37% predicted with an FEV1 of 1.43 L. He notes a history of myocardial infarction 2020 with stent placement and is currently on Plavix. He states his professor of psychology was Dr. Hanson in [place] but has not seen him for some time and needs to establish with cardiology locally. Did obtain records from Dr. Hanson's office. We received a reply that the patient did not follow-up with Dr. Hanson after his initial stent placement in 2000. Upon further discussion with the patient today he states he has not seen a professor of psychology since discharge from the hospital for stent placement after his myocardial infarction The patient is being seen by me at the request of Dr. Samir Jordan MD for my opinion and advice regarding ventral hernia. [facility] He had an echocardiogram in December 15, 2022. This demonstrated a 55 to 6% ejection fraction and otherwise no specific abnormalities. I performed a laparoscopic ventral hernia repair in conjunction with Carin Bueno on July 27, 2024. An 8.6 cm [place] mesh was placed for the repair. The patient had initial follow-up with Filiberto Jurado on August 11, 2024. He had no complaints at that time. The patient currently notes that he is having a pulling sensation in his upper abdomen. He made the appointment due to this discomfort. He had been lifting things which were relatively heavy. He states overall he feels better in the past few days. This actually is in his upper abdomen and subcostal area not at the site of his hernia repair. his appetite has been good. VITALS: Blood pressure 102/62, pulse 68, temperature 36.4 ?C (97.5 ?F), temperature source Temporal, resp. rate 16, height 170.2 cm (5' 7), weight 91.6 kg (202 lb), SpO2 97%. On examination, the hernia site is well-healed with no signs of recurrence Assessment IMPRESSION: Status post laparoscopic umbilical hernia repair reinforced with mesh. No signs of recurrent hernia PLAN: If the patient notes any problems or signs of wound infections, he should contact me immediately. The patient was recommended to be careful with lifting and avoid lifting heavy items that would cause him muscle strain and discomfort in the area. The hernia repair appears intact. From the standpoint of his repair he is now 8 weeks post and that he sites should be well-healed. Diagnoses: (K43.7) Ventral hernia with gangrene (primary encounter diagnosis) Return to Clinic: The patient is instructed to follow-up with me as needed. Michelle T Tonya, MD Allergies As of Date: 09/15/2024 Noted Allergy Reaction CABBAGE 11/09/2021 14 - Other: See Comments Comments: dyspha (more content not included)... Normal [facility] POLYSOMNOGRAM (PSG)/HOME SLE EP APNEA TEST (HSAT)on 09-07-2024 POLYSOMNOGRAM (PSG)/HOME SLEEP APNEA TEST (HSAT) [facility] at [address], [address] [address] ; Home Sleep Apnea Test (HSAT) Study Report Name: SHAWNA PRAJAPATI Date of Study: 09/07/2024 [facility]#: [id number] Age: 59 (: 1965) ESS: N/A Neck Circ. (cm): N/A Height (cm): 170.2 Weight (kg): 90.6 BMI: 31.3 Referring Provider: ОЛЬГА HUGHES Mailcode: Sleep history: The patient is a 59 year old male with a history of obstructive sleep apnea, no records available. The patient is not currently using PAP and endorses, witnessed apneas, and multiple awakenings from sleep. Repeat testing needed to requalify for PAP equipment/supplies. The patient is here for reassessment of obstructive sleep apnea. The patient does not endorse a habitual sleep position. Pertinent medical history: Asthma, Chronic obstructive pulmonary disease, Coronary artery disease, GERD, Hyperlipidemia, Hypertension, Obesity, Obstructive sleep apnea Medications: Albuterol, Aspirin, Chlorthalidone, Fluticasone, Lisinopril, Metoprolol Tartrate, Montelukast, Omeprazole, Xarelto Sleep procedure: PSG unattended Type III, minimum of 4 parameters (75002) Procedure: This study was performed using a Type III ambulatory PSG device and was unattended. The patient was instructed on proper use of the device by a registered certified ophthalmic technologist. The monitored parameters included heart rate, oxygen saturation, continuous airflow with thermistor and nasal pressure transducer, snoring via nasal pressure transducer, chest and abdominal effort, and body position. GEE definition: Respiratory event index (GEE), calculated as respiratory events x 60 / TRT (total recording time in minutes). Note: the apnea hypopnea index has been replaced by the respiratory event index for home sleep apnea test. Since the home sleep apnea test does not measure sleep, the GEE is most accurate index of respiratory events. The GEE is a surrogate of the AHI per the AASM Manual for Scoring of Sleep and Associated Events version 3. Apnea definition: The peak signal excursions drop by >90% of pre-event baseline using an oronasal thermal sensor (diagnostic study), PAP device flow (titration study) or an alternative apnea sensor (diagnostic study). The duration of the >90% drop in signal excursion is >=10 seconds. Hypopnea definition: The peak signal excursions drop by >= 30% of pre-event baseline using nasal pressure (diagnostic study), PAP device flow (titration study) or an alternative hypopnea sensor (diagnostic study). The duration of the >= 30% drop in signal excursion is >=10 seconds. There is a greater than or equal to 3% oxygen desaturation from pre-event baseline. RESPIRATORY DATA: The study started at 21:15:33 and ended at 02:35:06 and the total recording time was 319 minutes. By convention, sleep is assumed for the whole recording. Snoring was noted. There was a total of 36 respiratory events. Of these events, the total number of apneas was 2 (2 obstructive, 0 mixed, and 0 central (0.0%)) and 34 hypopneas. The central apnea index (NANCY) was 0.0. The respiratory event index (GEE) was 6.8 events per hour of study time. The mean oxygen saturation during the study was 89.0%, with a minimum oxygen saturation of 83.0%. The patient spent 189.4 minutes at oxygen saturation measured less than 90% (60.4% of recording time) and 116.5 minutes at oxygen saturation measured at or less than 88% (36.5% of recording time). Time GEE/AHI Supine 270.0 min 7.3 Off-Supine 49.5 min 3.6 Total 319.5 min 6.8 ECG DATA: The average heart rate was 60 bpm with a range of 49 bpm to 155 bpm. ICSD DIAGNOSIS: Obstructive Sleep Apnea Syndrome [G47.33] Sleep Related Hypoxia [G47.34] IMPRESSION/RECOMMENDAT IONS: 1. This study confirms a diagnosis of at least mild obstructive sleep apnea. 2. The results of this study may represent an underestimation of the degree of obstructive sleep apnea, especially hypopneas, because of the known limitations of HSAT, such as inability to record arousals because EEG is not recorded. 3. Treatment of mild sleep apnea can include weight loss, positional therapy, treatment of allergies, oral appliance therapy or ENT evaluation of any airway abnormalities. PAP therapy may be considered in patients with documented symptoms of daytime sleepiness, impaired cognition, mood disorder, insomnia, or documented hypertension, ischemic heart disease, or history of stroke. 4. Hypoxia was noted, even in the absence of respiratory events. It is uncertain if this represents true hypoxia or technical artifact. An in-lab sleep study or nocturnal pulse oximetry may help to clarify whether or not there is true hypoxia. INTERPRETING PHYSICIAN: Gutierrez Kitchen MD I attest that I have performed epoch by epoch review of the entire raw data and have found this study to be technically adeq (more content not included)... Normal [facility] CNOVon 09-03-2024 CNOV Office Visit (INTMWS ) SHAWNA PRAJAPATI ([id number]) 1965 M Date Time Provider Department 09/03/24 1:00 PM LEAH SHAIKH INTMWS During your visit today, we recorded the following information about you: Pulse Respiration Blood pressure Weight 58/minute 14/minute 116/86 90.6 kg Leah Shaikh, 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 09/03/2024 1:02 PM Addendum We discussed your abdominal pain: - You are still experiencing abdominal pain, though it has improved slightly. There are no new symptoms, and your chest x-ray was normal. - I recommend following up with general surgery to evaluate whether your abdominal pain could be related to your prior hernia surgery or any other issues. Please schedule this appointment at the front edger. - If your pain worsens or you develop new symptoms such as chest pain, worsening shortness of breath, heart palpitations, or severe abdominal pain, please go to the ER immediately. We discussed your blood pressure and medications: - Your blood pressure today was 116/86, which is an improvement from your last visit (100/66). You reported feeling less dizzy and less like you might pass out. - You mentioned you stopped taking your 10 mg dose of Lisinopril because you were unable to split the tablet. I have sent in a new prescription for the correct dose. Please pick this up and resume taking it as prescribed. We discussed your COPD: - Dr. Escamilla has confirmed that you have COPD. While there is no cure, avoiding smoking can help prevent further progression of the disease. - COPD is typically managed with inhalers. Please continue using your inhalers as prescribed. - Dr. Escamilla recommended a follow-up in 6 months to monitor your condition. We discussed your lab results: - Your kidney function has improved compared to the past 6 months, and your potassium levels are now back to normal. - Your blood count remains slightly anemic. Please let me know if you experience any worsening symptoms related to this. Next steps: - Schedule an appointment with general surgery to evaluate your abdominal pain and vascular concerns. 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 - Continue using your inhalers for COPD management and follow up with Dr. Escamilla in 6 months. - Monitor your symptoms and seek immediate care if you experience worsening abdominal pain, chest pain, worsening shortness of breath, or other concerning symptoms. Leah Shaikh, 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.[facility] 09/03/2024 1:33 PM Signed CC: Patient presents with: Abdominal Pain HPI Recording using [employer] software for draft documentation of the visit was discussed with the patient/authorized patient portal representative; all questions welcomed and answered. Patient/authorized patient portal representative agreed to proceed Shawna is a 59-year-old male with a history of asthma, COPD, and inguinal hernia, presenting for follow-up on abdominal pain. He was seen for this five days ago. Upper abdominal pain was an 8 out of 10 but not accompanied by any other symptoms including GI or . He recently had a ventral hernia repair last month but no pain in the surgical area. He also mentioned similar symptoms with a previous [place], EKG showed incomplete RBBB but otherwise no evidence of ischemia. He was advised to go to the ER due to severe pain however he declined. He was worked up outpatient with chest x-ray and labs which were unremarkable. Today Shawna reports persistent sharp abdominal pain, which has slightly improved but is not yet resolved. He denies new symptoms and has not experienced chest pain or worsening dyspnea, attributing any shortness of breath to his asthma. He denies heartburn, reflux, indigestion, or nausea when eating. He has a history of GERD and is taking Prilosec 40 mg daily. His BP had been chronically low and he reported symptoms of lightheadedness and fatigue, Lisinopril was decreased to 5 mg daily. He was unable to break the 10 mg tablets in half and has not taken the Lisinopril. He reports feeling less dizzy and less like he is going to pass out since stopping the medication. His blood pressure today is 116/86, an improvement from 100/66 last week. Review of Systems See HPI PAST MEDICAL HISTORY Diagnosis Date Asthma ([facility] [place]) 1990 Chronic deep vein thrombosis (DVT) of calf muscle vein of right lower extremity ([facility] [place]) 03/27/2023 COPD (chronic obstructive pulmonary disease) ([facility] [place]) 2021 Coronary artery disease COVID-19 07/05/2021 EIC (epidermal inclusion cyst) 11/26/2019 Fibromyalgia 10/28/2016 Folliculitis 11/26/2019 GERD (gastroesophageal reflux disease) 01/27/2019 Hyperlipidemia 07/17/2021 Hypertension 07/17/2021 Inguinal hernia Irregular heartbeat NSTEMI (non-ST elevation myocardial infarction) ([facility]) 05/03/2020 [facility] [place] on CPAP 2012 with nocturnal O2. Pancreatitis, chronic (more content not included)... Normal [facility] CBC panel Auto (Bld)on 08-30 Erythrocyte distribution width (RBC) [Ratio] 14.7 % 11.5 - 15.0 % [facility] Hematocrit (Bld) [Volume fraction] 39.3 % 39.0 - 51.0 % [facility] Hemoglobin (Bld) [Mass/Vol] 11.5 g/dL Low 13.0 - 17.0 g/dL [facility] Interpretation and review of laboratory results Abnormal [facility] MCH (RBC) [Entitic mass] 25.1 pg Low 26. 0 - 34.0 pg [facility] MCHC (RBC) [Mass/Vol] 29.3 g/dL Low 30.5 - 36.0 g/dL [facility] MCV (RBC) [Entitic vol] 85.6 fL 80.0 - 100.0 fL [facility] Nucleated RBC (Bld) [#/Vol] NINF [facility] Platelet mean volume (Bld) [Entitic vol] 10 fL 9.0 - 12.7 fL [facility] Platelets (Bld) [#/Vol] 370 10*3/uL [facility] RBC (Bld) [#/Vol] 4.59 10*6/uL 4.20 - 6.0 0 m/uL [facility] WBC (Bld) [#/Vol] 9.89 10*3/uL [facility] Erythrocyte distribution width (RBC) [Ratio] 14.7 % Normal 11.5-15.0 [facility] Comment on above: Order Comment: Speci men Type: BLOOD SPECIMENOrdering Facility: Address: [address] [place] [address] Performed By: #### 5 8410-2 ####[facility] PAL[facility] SPRINGS CAMPUSAlyssa [id number] [place] [address] [place] [facility] Hematocrit (Bld) [Volume fraction] 39.3 % Normal 39.0-51.0 [facility] Comment on above: Order Comment: Speci men Type: BLOOD SPECIMENOrdering Facility: Address: [address] [place] [address] Performed By: #### 5 8410-2 ####[facility] CENTERLIA [id number] [place] [address] [place] Hemoglobin (Bld) [Mass/Vol] 11.5 g/dL Low 13.0-17.0 [facility] Comment on above: Order Comment: Speci men Type: BLOOD SPECIMENOrdering Facility: Address: [address] [place] [address] Performed By: #### 5 8410-2 ####[facility] MED[facility] CENTERLIA [id number] [place] [address] [place] MCH (RBC) [Entitic mass] 25.1 pg Low 26.0-34.0 [facility] Comment on above: Order Comment: Speci men Type: BLOOD SPECIMENOrdering Facility: Address: [address] [place] [address] Performed By: #### 5 8410-2 ####[facility] [id number] [place] [address] [place] MCHC (RBC) [Mass/Vol] 29.3 g/dL Low 30.5-36.0 [facility] Comment on above: Order Comment: Speci men Type: BLOOD SPECIMENOrdering Facility: Address: [address] [place] [address] Performed By: #### 5 8410-2 ####[facility] [id number] [place] [address] [place] MCV (RBC) [Entitic vol] 85.6 fL Normal 80.0-100.0 [facility] Comment on above: Order Comment: Speci men Type: BLOOD SPECIMENOrdering Facility: Address: [address] [place] [address] Performed By: #### 5 8410-2 ####[facility] [id number] [place] [address] [place] Nucleated RBC (Bld) [#/Vol] 10*3/uL Normal <0.01 [facility] Comment on above: Order Comment: Speci men Type: BLOOD SPECIMENOrdering Facility: Address: [address] [place] [address] Performed By: #### 5 8410-2 ####[facility] [id number] [place] [address] [place] Platelet mean volume (Bld) [Entitic vol] 10.0 fL Normal 9.0-12.7 [facility] Comment on above: Order Comment: Speci men Type: BLOOD SPECIMENOrdering Facility: Address: [address] [place] [address] Performed By: #### 5 8410-2 ####[facility]MEENCL[facility] [id number] [place] [address] [place] Platelets (Bld) [#/Vol] 370 10*3/uL Normal 150-400 [facility] Comment on above: Order Comment: Speci men Type: BLOOD SPECIMENOrdering Facility: Address: [address] [place] [address] Performed By: #### 5 8410-2 ####[facility] [id number] [place] [address] [place] RBC (Bld) [#/Vol] 4.59 10*6/uL Normal 4.20-6.00 [facility] Comment on above: Order Comment: Speci men Type: BLOOD SPECIMENOrdering Facility: Address: [address] [place] [address] Performed By: #### 5 8410-2 ####[facility] [id number] [place] [address] [place] WBC (Bld) [#/Vol] 9.89 10*3/uL Normal 3.70-11.00 [facility] Comment on above: Order Comment: Speci men Type: BLOOD SPECIMENOrdering Facility: Address: [address] [place] [address] Performed By: #### 5 8410-2 ####[facility]ME[facility]CL[facility] [id number] [place] [address] [place] CNOVon 08-30-2024 CNOV Office Visit (INTMWS ) PRAJAPATISHAWNA CHINCHILLA ([id number]) 1965 M Date Time Provider Department 08/30/24 1:00 PM LEAH SHAIKH INTMWS During your visit today, we recorded the following information about you: Pulse Respiration Blood pressure Weight 72/minute 14/minute 100/66 90.9 kg Leah Shaikh, 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 08/30/2024 1:32 PM Signed We discussed your abdominal pain: - You reported new, sharp abdominal pain that worsens with movement, particularly when getting out of bed. This pain is different from the pain you experienced before your hernia surgery. - I performed an EKG, which showed changes compared to your May EKG. These changes are similar to those seen in 2020 when you had a heart attack. While I cannot confirm the cause of your abdominal pain (heart, lungs, or gastrointestinal), I strongly recommend that you go to the emergency room if this pain feels similar to your heart attack or if it worsens. - If you experience chest pain, back pain, or any new or worsening symptoms, please go to the emergency room immediately or call 911. - I ordered blood work and a chest x-ray to further evaluate your symptoms. Please complete these tests as soon as possible. - I will review the results and contact you with any updates or further recommendations We discussed your blood pressure: - Your blood pressure has been low, and you reported occasional lightheadedness. To address this, I am decreasing your Lisinopril dose from 10 mg to 5 mg daily. - Split your remaining 10 mg tablets in half to make 5 mg doses until your new prescription is ready. - Your new prescription for 5 mg Lisinopril has been sent to [facility]. Please take one whole 5 mg tablet daily once you pick it up. Important instructions: - If your abdominal pain worsens, or if you experience chest pain, back pain, or any new or concerning symptoms, please go to the emergency room immediately. - Continue monitoring your symptoms and let us know if anything changes. Leah Shaikh, WILLIAM.ASSISTANT TODDLER TEACHER 08/30/2024 1:45 PM Signed CC: Patient presents with: Abdominal Pain: X 1 days Cough: X 2 weeks HPI Recording using [employer] software for draft documentation of the visit was discussed with the patient/authorized patient portal representative; all questions welcomed and answered. Patient/authorized patient portal representative agreed to proceed Shawna is a 59-year-old male with a history of asthma and a previous [place], presenting for follow-up and evaluation of new-onset severe abdominal pain and a persistent cough. Shawna reports a new onset of severe, sharp abdominal pain that began early this morning and is distinct from any previous pain experienced before his recent hernia surgery. He describes the pain as feeling like somebody's in there with a knife just whacking away. The pain is constant but can lighten up at times; it intensifies with certain movements, particularly when standing up or getting out of bed. His appetite remains normal, and eating does not exacerbate the abdominal pain. He has been feeling bloated and reports a recent bowel movement at 1030, which was larger than usual and somewhat difficult to pass, though he does not consider it constipation. He denies any urinary symptoms such as burning, urgency, or frequency and feels that he empties his bladder completely when urinating. Shawna denies any similar pain prior to the surgery and notes that the pain is different from the hernia-related pain he had before. He denies any severe pain at the surgical site, noting only a small bump and some scarring. However he does report similar abdominal pain when he had his heart attack a few years ago. Shawna also reports a persistent cough that has been ongoing for 2-3 weeks, which sometimes causes him to nearly vomit. He denies any new dyspnea, chest pain, palpitations, or wheezing associated with the cough, noting that dyspnea only occurs when his asthma exacerbates. He denies fever or chills. He reports feeling more fatigued since the onset of the cough, stating, my giddy up and go seems like a giddy up and went. He denies any new or unusual swelling in his ankles or feet. Shawna is currently taking lisinopril 10 mg daily for blood pressure management but expresses concern about his blood pressure being a little bit low and reports occasional lightheadedness. Review of Systems See HPI PAST MEDICAL HISTORY Diagnosis Date Asthma (HCC) 1990 Chronic deep vein thrombosis (DVT) of calf muscle vein of right lower extremity ([facility]) 03/27/2023 COPD (chronic obstructive pulmonary disease) ([facility]) 2021 Coronary artery disease COVID-19 07/05/2021 EIC (epidermal inclusion cyst) 11/26/2019 Fibromyalgia 10/28/2016 Folliculitis 11/26/2019 GERD (gastroesophageal reflux disease) 01/27/2019 Hyperlipidemia 07/17/2021 Hypertension 06/27 (more content not included)... Normal [facility] 08-30-2024 CNPN Telephone (INTMWS) SHAWNA PRAJAPATI ([id number]) 1965 Date Time Provider Department 08/30/24 SAMIR JORDAN INTMWS During your visit today, we recorded the following information about you: Emi You 08/30/2024 3:20 PM Signed Spoke with patient and he asked when the results of the x-ray would be in. Please advise. Leah Norman, WILLIAM.ASSISTANT TODDLER TEACHER 08/30/2024 4:22 PM Signed Chest x-ray was normal Leah Shaikh APRN.Win Medel RN 08/30/2024 5:15 PM Signed Pt called and is notified of providers results. Pt voices understanding. Pt was asking about blood work and urine. I let him know that not all the results were in and they were probably waiting on all the results to come in to call on those. Win Pitt RN Allergies As of Date: 08/30/2024 Noted Allergy Reaction CABBAGE 11/09/2021 14 - Other: See Comments Comments: dysphagia LETTUCE 11/09/2021 14 - Other: See Comments Comments: dysphagia ONION EXTRACT 11/09/2021 11 - Vomiting GARLIC OIL 07/02/2022 8 - GI Upset NUT - UNSPECIFIED 08/30/2024 10 - Anaphylaxis Comments: ALL NUTS Date Reviewed: 08/30/2024 Reviewed by: Leah Shaikh APRN.ASSISTANT TODDLER TEACHER - Fully Assessed Reason for Visit: Results [95] Prescriptions as of 08/30/2024 - lisinopril (ZESTRIL) 5 mg tablet Take 1 tablet by mouth once daily. - BREZTRI AEROSPHERE 160-9-4.8 mcg/actuation HFA aerosol inhaler INHALE 2 PUFFS BY MOUTH TWICE DAILY DIRECTED - rivaroxaban (XARELTO) 20 mg tablet Take 20 mg by mouth daily with dinner. - fluticasone (FLONASE ALLERGY RELIEF) 50 mcg/actuation nasal spray Use 2 Sprays in each nostril once daily. - albuterol HFA (PROVENTIL HFA, VENTOLIN HFA) 90 mcg/actuation inhaler Inhale 2 Puffs as instructed every 4 hours as needed. - montelukast (SINGULAIR) 10 mg tablet Take 1 tablet by mouth daily at bedtime. - omeprazole (PRILOSEC) 40 mg capsule Take 1 capsule by mouth once daily. - aspirin, enteric coated (ASPIRIN, ENTERIC COATED) 81 mg EC tablet Take 1 tablet by mouth once daily. - metoprolol tartrate, short acting, (LOPRESSOR) 25 mg tablet Take 1 tablet by mouth two times a day. - albuterol (PROVENTIL) 2.5 mg /3 mL (0.083 %) nebulizer solution Use one vial every 4 hours as needed for wheezing/shortness of breath. Use over 5-15minutes. - albuterol HFA (PROVENTIL HFA, VENTOLIN HFA) 90 mcg/actuation inhaler Inhale 2 Puffs as instructed every 4 hours as needed for wheezing/shortness of breath. - chlorthalidone (HYGROTON) 25 mg tablet Take 1 tablet by mouth once daily. Problem List As Of Date 08/30/2024 Noted Resolved EIC (epidermal inclusion cyst) [L72.0] 11/26/2019 05/17/2022 Folliculitis [L73.9] 11/26/2019 05/17/2022 Seborrheic dermatitis [L21.9] 11/26/2019 Asthma [J45.909] 1990 COPD (chronic obstructive pulmonary disease) (H*2021 MARGARITO on CPAP [G47.33] 2012 Hyperlipidemia [E78.5] 07/17/2021 Hypertension [I10] 07/17/2021 Coronary artery disease involving pechanga heart *08/15/2022 Obesity, Class I, BMI 30-34.9 [E66.811] 12/26/2022 Homelessness [Z59.00] 12/26/2022 Chronic deep vein thrombosis (DVT) of calf musc*03/27/2023 Gastroesophageal reflux disease without esophag*03/27/2023 Delusions (HCC) [F22] 03/28/2023 Bilateral edema of lower extremity [R60.0] 07/17/2023 Constipation [K59.00] 11/26/2023 Lung nodules [R91.8] 04/30/2024 History of cigarette smoking [Z87.891] 04/30/2024 PVD (peripheral vascular disease) [I73.9] 07/26/2024 Encounter Status:Closed by WIN PITT on 08/30/24 Normal [facility] Comprehensive metabolic 2000 panelOrdered By: Kat Jacobs on 08-30-2024 Albumin [Mass/Vol] 3.8 g/dL Low 3.9 - 4.9 g/dL [facility] ALP [Catalytic activity/Vol] 126 U/L High 38 - 113 U/L [facility] ALT [Catalytic activity/Vol] 12 U/L 10 - 54 U/L [facility] Anion gap [Moles/Vol] 8 mmol/L 8 - 15 mmol/L [facility] AST [Catalytic activity/Vol] 15 U/L 14 - 40 U/L [facility] Bilirubin [Mass/Vol] 0.4 mg/dL 0.2 - 1 .3 mg/dL [facility] Calcium [Mass/Vol] 9.3 mg/dL 8.5 - 10. 2 mg/dL [facility] Chloride [Moles/Vol] 105 mmol/L 98 - 10 7 mmol/L [facility] CO2 [Moles/Vol] 27 mmol/L 22 - 30 mmol/L [facility] Creatinine [Mass/Vol] 1.33 mg/dL High 0.73 - 1.22 mg/dL [facility] GFR/1.73 sq M.predicted among non-blacks MDRD (S/P/Bld) [Vol rate/Area] 61 mL/min/{1.73_m2} - PINF [facility] Comment on above: Estimated Glomerular Filtration Rate (eGFR) is calculated using the 202 CKD-EPI creatinine equation. This equation utilizes serum creatinine, sex, and age as parameters. The creatinine assay has traceable calibration to isotope dilution-mass spectrometry. Refer to KDIGO guidelines for clinical interpretation. In patients with unstable renal function, e.g. those with acute kidney injury, the eGFR may not accurately reflect actual GFR. Glucose [Mass/Vol] 103 mg/dL High 74 - 99 mg/dL [facility] Comment on above: The Spanish Diabete s Association (ADA) provides guidance for cutoff values for fasting glucose and random glucose. The ADA defines fasting as no caloric intake for at least 8 hours. Fasting plasma glucose results between 100 to 125 mg/dL indicate increased risk for diabetes (prediabetes). Fasting plasma glucose results greater than or equal to 126 mg/dL meet the criteria for diagnosis of diabetes. In the absence of unequivocal hyperglycemia, results should be confirmed by repeat testing. In a patient with classic symptoms of hyperglycemia or hyperglycemic crisis, random plasma glucose results greater than or equal to 200 mg/dL meet the criteria for diagnosis of diabetes. Reference: Standards of Medical Care in Diabetes 2016, Spanish Diabetes Association. Diabetes Care. 2016.39(Suppl 1). Interpretation and review of laboratory results Abnormal [facility] Potassium [Moles/Vol] 4.7 mmol/L 3.7 - 5.1 mmol/L [facility] Protein [Mass/Vol] 7 g/dL 6.3 - 8.0 g/dL [facility] Sodium [Moles/Vol] 140 mmol/L 136 - 144 mmol/L [facility] Urea nitrogen [Mass/Vol] 26 mg/dL High 9 - 24 mg/dL [facility] Comprehensive metabolic 2000 panelon 08-30-2024 Albumin [Mass/Vol] 3.8 g/dL Low 3.9-4.9 [facility] Comment on above: Order Comment: Speci men Type: BLOOD SPECIMENOrdering Facility: Address: [facility] [place] [address] Performed By: #### 2 4323-8 ####[facility] [id number] [place] [address] [place]#### LIPNF ####[facility] LABCLIA [id number] [place] [address] [place] ALP [Catalytic activity/Vol] 126 U/L High 38-113 [facility] Comment on above: Order Comment: Speci men Type: BLOOD SPECIMENOrdering Facility: Address: [address] [place] [address] Performed By: #### 2 4323-8 ####[facility] [id number] [place] [address] [place]#### LIPNF ####[facility] LABCLIA [id number] [place] [address] [place] ALT [Catalytic activity/Vol] 12 U/L Normal 10-54 [facility] Comment on above: Order Comment: Speci men Type: BLOOD SPECIMENOrdering Facility: Address: [address] [place] [address] Performed By: #### 2 4323-8 ####[facility] [id number] [place] [address] [place]#### LIPNF ####[facility] LABCLIA [id number] [place] [address] [place] Anion gap [Moles/Vol] 8 mmol/L Normal 8-15 [facility] Comment on above: Order Comment: Speci men Type: BLOOD SPECIMENOrdering Facility: Address: [address] [place] [address] Performed By: #### 2 4323-8 ####[facility] MILLTOWNCLIA [id number] [place] [address] [place]#### LIPNF ####[facility] LABCLIA [id number] [address] [address] [place] AST [Catalytic activity/Vol] 15 U/L Normal 14-40 [facility] Comment on above: Order Comment: Speci men Type: BLOOD SPECIMENOrdering Facility: Address: [address] [place] [address] Performed By: #### 2 4323-8 ####[facility] MILLTOWNCLIA [id number] [place] [address] [place]#### LIPNF ####[facility] LABCLIA [id number] [place] [address] [place] Bilirubin [Mass/Vol] 0.4 mg/dL Normal 0.2-1.3 [facility] Comment on above: Order Comment: Speci men Type: BLOOD SPECIMENOrdering Facility: Address: [address] [place] [address] Performed By: #### 2 4323-8 ####[facility] [id number] [place] [address] [place]#### LIPNF ####[facility] LABCLIA [id number] [place] [address] [place] Calcium [Mass/Vol] 9.3 mg/dL Normal 8.5-10.2 [facility] Comment on above: Order Comment: Speci men Type: BLOOD SPECIMENOrdering Facility: Address: [address] [place], [place] [address] Performed By: #### 2 4323-8 ####[facility] MILLTOWNCLIA [id number] [place] [address] [place]#### LIPNF ####[facility] LABCLIA [id number] [place] [id number] [place] Chloride [Moles/Vol] 105 mmol/L Normal 98-107 [facility] Comment on above: Order Comment: Speci men Type: BLOOD SPECIMENOrdering Facility: Address: [address] [place] [address] Performed By: #### 2 4323-8 ####[facility] MILLTOWNCLIA [id number] [place] [address] [place]#### LIPNF ####[facility] LABCLIA [id number] [place] [address] [place] CO2 [Moles/Vol] 27 mmol/L Normal 22-30 [facility] Comment on above: Order Comment: Speci men Type: BLOOD SPECIMENOrdering Facility: Address: [address] [place] [address] Performed By: #### 2 4323-8 ####[facility] [id number] [place] [address] [place]#### LIPNF ####[facility] LABCLIA [id number] [place] [address] [place] Creatinine [Mass/Vol] 1.33 mg/dL High 0.73-1.22 [facility] Comment on above: Order Comment: Speci men Type: BLOOD SPECIMENOrdering Facility: Address: [address] [place] [address] Performed By: #### 2 4323-8 ####[facility] MILLWNCLIA [id number] [place] [address] [place]#### LIPNF ####[facility] LABCLIA [id number] [place] [address] [place] Creatinine and Glomerular filtration rate.predicted panel (S/P/Bld) 61 mL/min/1.73m??? Normal >=60 [facility] Comment on above: Order Comment: Gilma palomares Type: BLOOD SPECIMENOrdering Facility: Address: [address] [place] [address] Result Comment: Delaney mated Glomerular Filtration Rate (eGFR) is calculated using the 2020 CKD-EPI creatinine equation. This equation utilizes serum creatinine, sex, and age as parameters. The creatinine assay has traceable calibration to isotope dilution-mass spectrometry. Refer to KDIGO guidelines for clinical interpretation. In patients with unstable renal function, e.g. those with acute kidney injury, the eGFR may not accurately reflect actual GFR. Performed By: #### 2 4323-8 ####[facility] [id number] [place] [address] [place]#### LIPNF ####[facility] LABCLIA [id number] [place] [address] [place] Glucose [Mass/Vol] 103 mg/dL High 74-99 [facility] Comment on above: Order Comment: Gilma palomares Type: BLOOD SPECIMENOrdering Facility: Address: [address] [place] [address] Result Comment: The Spanish Diabetes Association (ADA) provides guidance for cutoff values for fasting glucose and random glucose. The ADA defines fasting as no caloric intake for at least 8 hours. Fasting plasma glucose results between 100 to 125 mg/dL indicate increased risk for diabetes (prediabetes). Fasting plasma glucose results greater than or equal to 126 mg/dL meet the criteria for diagnosis of diabetes. In the absence of unequivocal hyperglycemia, results should be confirmed by repeat testing. In a patient with classic symptoms of hyperglycemia or hyperglycemic crisis, random plasma glucose results greater than or equal to 200 mg/dL meet the criteria for diagnosis of diabetes. Reference: Standards of Medical Care in Diabetes 2016, Spanish Diabetes Association. Diabetes Care. 2016.39(Suppl 1). Performed By: #### 2 4323-8 ####[facility] [id number] [place] [address] [place]#### LIPNF ####[facility] LABCLIA [id number] [place] [id number] [place] Potassium [Moles/Vol] 4.7 mmol/L Normal 3.7-5.1 [facility] Comment on above: Order Comment: Speci men Type: BLOOD SPECIMENOrdering Facility: Address: [address] [place] [address] Performed By: #### 2 4323-8 ####[facility] MILLWNCLIA [id number] [place] [address] [place]#### LIPNF ####[facility] LABCLIA [id number] [place] [address] [place] Protein [Mass/Vol] 7.0 g/dL Normal 6.3-8.0 [facility] Comment on above: Order Comment: Speci men Type: BLOOD SPECIMENOrdering Facility: Address: [address] [place] [address] Performed By: #### 2 4323-8 ####[facility] [id number] [place] [address] [place]#### LIPNF ####[facility] LABCLIA [id number] [place] [address] [place] Sodium [Moles/Vol] 140 mmol/L Normal 136-144 [facility] Comment on above: Order Comment: Speci men Type: BLOOD SPECIMENOrdering Facility: Address: [address] [place], [place] [address] Performed By: #### 2 4323-8 ####[facility] MILLWNCLIA [id number] [place] [address] [place]#### LIPNF ####[facility] LABCLIA [id number] [address] [address] [place] Urea nitrogen [Mass/Vol] 26 mg/dL High 9-24 [facility] Comment on above: Order Comment: Speci men Type: BLOOD SPECIMENOrdering Facility: Address: [address] [place], [place] [address] Performed By: #### 2 4323-8 ####[facility] VICKYJACK[facility] ALTUSLIA [id number] [place] [address] [place]#### LIPNF ####[facility] LABCLIA [id number] [place] [id number] [facility] [id number] 08-30-2024 ECG01 Ventricular Rate : 5 8 BPM Atrial Rate : 58 BPM P-R Interval : 168 ms QRS Duration : 100 ms Q-T Interval : 404 ms QTC Calculation(Bazett) : 396 ms Calculated P Warren : 57 degrees Calculated R Warren : 78 degrees Calculated T Warren : 48 degrees SINUS BRADYCARDIA INCOMPLETE RIGHT BUNDLE BRANCH BLOCK BORDERLINE ECG Confirmed by JOSUE ESTRELLA MD ([id number]) on 10/01/2024 4:22:03 PM NAME : SHAWNA PRAJAPATI PID : [id number] : 1965 Gender : Male Race : ORD : Procedure Date : Aug 30 2024 13:19:38 Edit Date : Oct 01 2024 16:22:04 Diagnosis: SINUS BRADYCARDIA INCOMPLETE RIGHT BUNDLE BRANCH BLOCK BORDERLINE ECG Confirmed by JOSUE ESTRELLA MD ([id number]) on 10/01/2024 4:22:03 PM Test Reason : Location : 185 : [facility] Overread By : JOSUE ESTRELLA MD Edited By : JOSUE ESTRELLA MD Referred By : , Acquired by : eb, Normal [facility] LIPID PANEL, NONFASTINGon Cholesterol [Mass/Vol] 148 mg/dL NINF - 200 mg/dL [facility] Comment on above: <200 mg/dL, Desirabl e 200-239 mg/dL, Borderline high >239 mg/dL, High HDL Cholesterol, Nonfasting 23 mg/dL Low 39 - PINF mg/dL [facility] Comment on above: 40-59 mg/dL, Accepta ble >59 mg/dL, High: Negative risk factor for coronary heart disease <40 mg/dL, Low: Positive risk factor for coronary heart disease Interpretation and review of laboratory results Abnormal [facility] LDL Cholesterol Calculated, Nonfasting 105 mg/dL High NINF - 100 mg/dL [facility] Comment on above: <100 mg/dL, Optimal 100-129 mg/dL, Near optimal/above optimal 130-159 mg/dL, Borderline high 160-189 mg/dL, High >189 mg/dL, Very high Secondary prevention optimal LDL Cholesterol levels are recommended to be <70 mg/dL LDL cholesterol is calculated using the Wise-NIH equation. LDL/HDL Ratio, Nonfasting 4.57 mg/dL High NINF - 2.54 mg/dL [facility] Comment on above: Reference: 1. National Cholesterol Education Program ATP III Guideline At-A-Glance Quick Desk Reference: National Heart, Lung, and Blood [place]. National Institutes of Health. 2001: NIH Publication No. 01-3305. 2. An International Atherosclerosis Society position paper: global recommendations for the management of dyslipidemia: executive summary, Atherosclerosis. 2014: 232(2):410-413. Non HDL Cholesterol, Nonfasting 125 mg/dL NINF - 130 mg/dL [facility] Comment on above: <130 mg/dL, Optimal 130-159 mg/dL, Near optimal/above optimal 160-189 mg/dL, Borderline high 190-219 mg/dL, High >219 mg/dL, Very high Secondary prevention optimal non HDL Cholesterol levels are recommended to be <100 mg/dL Total Chol/HDL Ratio, Nonfasting 6.43 mg/dL High NINF - 5.10 mg/dL [facility] Triglycerides, Nonfasting 106 mg/dL NINF - 150 mg/dL [facility] Comment on above: <150 mg/dL, Normal 150-199 mg/dL, Borderline high 200-499 mg/dL, High >499 mg/dL, Very high VLDL Cholesterol, Nonfasting 18 mg/dL NINF - 30 mg/dL [facility] Cholesterol [Mass/Vol] 148 mg/dL Normal <200 [facility] Comment on above: Order Comment: Speci men Type: BLOOD SPECIMENOrdering Facility: Address: [address] [place] [address] Result Comment: <200 mg/dL, Desirable 200-239 mg/dL, Borderline high >239 mg/dL, High Performed By: #### 2 4323-8 ####[facility] MILLWNCLIA [id number] [place] [address] [place]#### LIPNF ####[facility] LABCLIA [id number] [place] [address] [place] HDL CHOLESTEROL, NF 23 mg/dL Low >39 [facility] Comment on above: Order Comment: Speci men Type: BLOOD SPECIMENOrdering Facility: Address: [address] [place] [address] Result Comment: 40-5 9 mg/dL, Acceptable >59 mg/dL, High: Negative risk factor for coronary heart disease <40 mg/dL, Low: Positive risk factor for coronary heart disease Performed By: #### 2 4323-8 ####[facility] [id number] [place] [address] [place]#### LIPNF ####[facility] LABCLIA [id number] [address] [place] LDL CHOLESTEROL CALCULATED, NF 105 mg/dL High <100 [facility] Comment on above: Order Comment: Speci men Type: BLOOD SPECIMENOrdering Facility: Address: [address] [place] [address] Result Comment: <100 mg/dL, Optimal 100-129 mg/dL, Near optimal/above optimal 130-159 mg/dL, Borderline high 160-189 mg/dL, High >189 mg/dL, Very high Secondary prevention optimal LDL Cholesterol levels are recommended to be <70 mg/dL LDL cholesterol is calculated using the Wise-NIH equation. Performed By: #### 2 4323-8 ####[facility] [id number] [place] [address] [place]#### LIPNF ####[facility] LABCLIA [id number] [place] [address] [place] LDL/HDL RATIO, NF 4.57 mg/dL High <2.54 [facility] Comment on above: Order Comment: Speci men Type: BLOOD SPECIMENOrdering Facility: Address: [address] [place] [address] Result Comment: Refe rence: 1. National Cholesterol Education Program ATP III Guideline At-A-Glance Quick Desk Reference: National Heart, Lung, and Blood [place]ck[place]. National Institutes of Health. 2001: NIH Publication No. 01-3305. 2. An International Atherosclerosis Society position paper: global recommendations for the management of dyslipidemia: executive summary, Atherosclerosis. 2014: 232(2):410-413. Performed By: #### 2 4323-8 ####[facility] [id number] [place] [address] [place]#### LIPNF ####[facility] [id number] [place] [address] [place] NON HDL CHOL, NF 125 mg/dL Normal <130 [facility] Comment on above: Order Comment: Speci men Type: BLOOD SPECIMENOrdering Facility: Address: [address] [place] [address] Result Comment: <130 mg/dL, Optimal 130-159 mg/dL, Near optimal/above optimal 160-189 mg/dL, Borderline high 190-219 mg/dL, High >219 mg/dL, Very high Secondary prevention optimal non HDL Cholesterol levels are recommended to be <100 mg/dL Performed By: #### 2 4323-8 ####[facility] [id number] [place] [address] [place]#### LIPNF ####[facility] LABIA [id number] [place] [address] [place] T CHOL/HDL RATIO NF 6.43 mg/dL High <5.10 [facility] Comment on above: Order Comment: Speci men Type: BLOOD SPECIMENOrdering Facility: Address: [address] [place] [address] Performed By: #### 2 4323-8 ####[facility] [id number] [place] [address] [place]#### LIPNF ####[facility] LABCLIA [id number] [place] [address] [place] TRIGLYCERIDES, NF 106 mg/dL Normal <150 [facility] Comment on above: Order Comment: Speci men Type: BLOOD SPECIMENOrdering Facility: Address: [address] [place] [address] Result Comment: <150 mg/dL, Normal 150-199 mg/dL, Borderline high 200-499 mg/dL, High >499 mg/dL, Very high Performed By: #### 2 4323-8 ####[facility] [id number] [place] [address] [place]#### LIPNF ####[facility] LABCLIA [id number] [place] [address] [place] VLDL CHOLESTEROL, NF 18 mg/dL Normal <30 [facility] Comment on above: Order Comment: Speci men Type: BLOOD SPECIMENOrdering Facility: Address: [address] [place] [address] Performed By: #### 2 4323-8 ####[facility] [id number] [place] [address] [place]#### LIPNF ####[facility] LABCLIA [id number] [place] [address] [place] Urinalysis complete panel (U )on 08-30-2024 Bacteria LM.HPF (Urine sed) [#/Area] Negative Negative /HPF [facility] Bilirubin Ql (U) Negative Negative [facility] Clarity (Unsp spec) Clear Clear [facility] Color (U) Yellow Yellow [facility] Epithelial cells LM.HPF (Urine sed) [#/Area] None Seen /HPF [facility] Glucose Test strip (U) [Mass/Vol] Negative Negative [facility] Hemoglobin Ql (U) Negative Negative [facility] Hyaline casts (Urine sed) [#/Area] 1-3 /LPF Abnormal 0 /LPF [facility] Interpretation and review of laboratory results Abnormal [facility] Ketones Ql (U) Negative Negative [facility] Leukocyte esterase Test strip Ql (U) Negative Negative [facility] Nitrite Ql (U) Negative Negative [facility] pH (U) 5.5 [pH] NINF - 8.5 [facility] Protein (U) [Mass/Vol] Negative Negative [facility] RBC LM.HPF (Urine sed) [#/Area] 0-2 /HPF 0-2 /HPF [facility] Specific gravity (U) [Rel density] 1.015 1.005 - 1.030 [facility] Urobilinogen Ql (U) 0.2 EU/dL 0.2-1.0 EU/dL [facility] WBC LM.HPF (Urine sed) [#/Area] 0-5 /HPF 0-5 /HPF [facility] This test was developed and its performance characteristics determined by [facility] Path[facility] Medicine [place] ([facility]). It has not been cleared or approved by the FDA. [facility] is regulated under CLIA as qualified to perform high-complexity testing. This test is used for clinical purposes. It should not be regarded as investigational or for research. [facility] Bacteria LM.HPF (Urine sed) [#/Area] Negative Normal Negative [facility] Comment on above: Order Comment: Speci men Type: URINE SPECIMENOrdering Facility: Address: [address] [place] [address] Performed By: #### 2 4356-8 ####[facility] LABCLIA [id number] [place] [address] [place] Bilirubin Ql (U) Negative Normal Negative [facility] Comment on above: Order Comment: Speci men Type: URINE SPECIMENOrdering Facility: Address: [facility] [place] [address] Performed By: #### 2 4356-8 ####[facility] LABCLIA [id number] [address] [place] [address] [place] Clarity (Unsp spec) Clear Normal Clear [facility] Comment on above: Order Comment: Speci men Type: URINE SPECIMENOrdering Facility: Address: [address] [place] [address] Performed By: #### 2 4356-8 ####[facility] LABCLIA [id number] [place] [address] [place] Color (U) Yellow Normal Yellow [facility] Comment on above: Order Comment: Speci men Type: URINE SPECIMENOrdering Facility: Address: [address] [place] [address] Performed By: #### 2 4356-8 ####[facility] LABCLIA [id number] [place] [address] [place] Epithelial cells LM.HPF (Urine sed) [#/Area] None Seen Normal [facility] Comment on above: Order Comment: Speci men Type: URINE SPECIMENOrdering Facility: Address: [address] [place] [address] Performed By: #### 2 4356-8 ####[facility] LABCLIA [id number] [address] [address] [place] Glucose Test strip (U) [Mass/Vol] Negative Normal Negative [facility] Comment on above: Order Comment: Speci men Type: URINE SPECIMENOrdering Facility: Address: [address] [place] [address] Performed By: #### 2 4356-8 ####[facility] LABCLIA [id number] [place] [address] [place] Hemoglobin Ql (U) Negative Normal Negative [facility] Comment on above: Order Comment: Speci men Type: URINE SPECIMENOrdering Facility: Address: [address] [place] [address] Performed By: #### 2 4356-8 ####[facility] LABCLIA [id number] [place] [address] [place] Hyaline casts (Urine sed) [#/Area] 1-3 /LPF Abnormal 0 /LPF [facility] Comment on above: Order Comment: Speci men Type: URINE SPECIMENOrdering Facility: Address: [address] [place] [address] Performed By: #### 2 4356-8 ####[facility] LABCLIA [id number] [place] [address] [place] Ketones Ql (U) Negative Normal Negative [facility] Comment on above: Order Comment: Speci men Type: URINE SPECIMENOrdering Facility: Address: [address] [place] [address] Performed By: #### 2 4356-8 ####[facility] LABCLIA [id number] [address], [place] [address] [place] Leukocyte esterase Test strip Ql (U) Negative Normal Negative [facility] Comment on above: Order Comment: Speci men Type: URINE SPECIMENOrdering Facility: Address: [address] [place] [address] Performed By: #### 2 4356-8 ####[facility] LABCLIA [id number] [place] [address] [place] Nitrite Ql (U) Negative Normal Negative [facility] Comment on above: Order Comment: Speci men Type: URINE SPECIMENOrdering Facility: Address: [address] [place] [address] Performed By: #### 2 4356-8 ####[facility] LABCLIA [id number] [place] [address] [place] pH (U) 5.5 [pH] Normal <8.5 [facility] Comment on above: Order Comment: Speci men Type: URINE SPECIMENOrdering Facility: Address: [address] [place] [address] Performed By: #### 2 4356-8 ####[facility] LABCLIA [id number] [place] [address] [place] Protein (U) [Mass/Vol] Negative Normal Negative [facility] Comment on above: Order Comment: Speci men Type: URINE SPECIMENOrdering Facility: Address: [address] [place] [address] Performed By: #### 2 4356-8 ####[facility] LABIA [id number] [place] [address] [place] RBC LM.HPF (Urine sed) [#/Area] 0-2 /HPF Normal 0-2 /HPF [facility] Comment on above: Order Comment: Speci men Type: URINE SPECIMENOrdering Facility: Address: [address] [place] [address] Performed By: #### 2 4356-8 ####[facility] LABIA [id number] [place] [address] [place] Specific gravity (U) [Rel density] 1.015 Normal 1.005-1.030 [facility] Comment on above: Order Comment: Speci men Type: URINE SPECIMENOrdering Facility: Address: [address] [place] [address] Performed By: #### 2 4356-8 ####[facility] LABIA [id number] [place] [id number] [place] Urobilinogen Ql (U) 0.2 EU/dL Normal 0.2-1.0 EU/dL [facility] Comment on above: Order Comment: Speci men Type: URINE SPECIMENOrdering Facility: Address: [address] [place] [address] Performed By: #### 2 4356-8 ####[facility] LABIA [id number] [place] [address] [place] WBC LM.HPF (Urine sed) [#/Area] 0-5 /HPF Normal 0-5 /HPF [facility] Comment on above: Order Comment: Speci men Type: URINE SPECIMENOrdering Facility: Address: [address] [place] [address] Performed By: #### 2 4356-8 ####[facility] [id number] [place] [address] [place] XR CHEST 2V FRONTAL/LATon XR CHEST 2V FRONTAL/LAT * * *Final Repor t* * * DATE OF EXAM: Aug 30 2024 1:57PM WOX 5291 - XR CHEST 2V FRONTAL/LAT / PROCEDURE REASON: multiple diagnoses * * * * Physician Interpretation * * * * EXAMINATION: CHEST RADIOGRAPH (2 VIEW FRONTAL and LATERAL) CLINICAL HISTORY: Upper abdominal pain Acute cough MQ: XC2_6 EXAM DATE/TIME: 08/30/2024 1:57 PM COMPARISON: Chest x-ray dated 04/14/2024 RESULT: Lines, tubes, and devices: None. Lungs and pleura: Stable right apical pleural-parenchymal scarring. No consolidation. No lung mass. No pleural effusion. No pneumothorax. Cardiomediastinal silhouette: Normal cardiomediastinal silhouette. Bones and soft tissues: Degenerative changes are present within the thoracic spine. IMPRESSION: No acute radiographic abnormality. Computer Analyst Supervisor: [employer] Transcribe Date/Time: Aug 30 2024 2:03P Dictated by : HOLGER HURTADO MD This examination was interpreted and the report reviewed and electronically signed by: HOLGER HURTADO MD on Aug 30 2024 2:04PM EST [id number] Normal [facility] XR Chest PA and Lateralon IMPRESSION: No acute radiographic abnormality. Computer Analyst Supervisor: MASON Transcribe Date/Time: Aug 30 2024 2:03P Dictated by : HOLGER HURTADO MD This examination was interpreted and the report reviewed and electronically signed by: HOLGER HURTADO MD on Aug 30 2024 2:04PM [facility] DIVISION OF RADIOLOGY * * *Final Report* * * DATE OF EXAM: Aug 30 2024 1:57PM WOX 5291 - XR CHEST 2V FRONTAL/LAT / PROCEDURE REASON: multiple diagnoses * * * * Physician Interpretation * * * * EXAMINATION: CHEST RADIOGRAPH (2 VIEW FRONTAL & LATERAL) CLINICAL HISTORY: Upper abdominal pain Acute cough MQ: XC2_6 EXAM DATE/TIME: 08/30/2024 1:57 PM COMPARISON: Chest x-ray dated 04/14/2024 RESULT: Lines, tubes, and devices: None. Lungs and pleura: Stable right apical pleural-parenchymal scarring. No consolidation. No lung mass. No pleural effusion. No pneumothorax. Cardiomediastinal silhouette: Normal cardiomediastinal silhouette. Bones and soft tissues: Degenerative changes are present within the thoracic spine. DIVISION OF RADIOLOGY Provider, [facility] - 08/30/2024 * * *Final Report* * * DATE OF EXAM: Aug 30 2024 1:57PM WOX 5291 - XR CHEST 2V FRONTAL/LAT / PROCEDURE REASON: multiple diagnoses * * * * Physician Interpretation * * * * EXAMINATION: CHEST RADIOGRAPH (2 VIEW FRONTAL & LATERAL) CLINICAL HISTORY: Upper abdominal pain Acute cough MQ: XC2_6 EXAM DATE/TIME: 08/30/2024 1:57 PM COMPARISON: Chest x-ray dated 04/14/2024 RESULT: Lines, tubes, and devices: None. Lungs and pleura: Stable right apical pleural-parenchymal scarring. No consolidation. No lung mass. No pleural effusion. No pneumothorax. Cardiomediastinal silhouette: Normal cardiomediastinal silhouette. Bones and soft tissues: Degenerative changes are present within the thoracic spine. IMPRESSION IMPRESSION: No acute radiographic abnormality. Computer Analyst Supervisor: [facility] Transcribe Date/Time: Aug 30 2024 2:03P Dictated by : HOLGER HURTADO MD This examination was interpreted and the report reviewed and electronically signed by: HOLGER HURTADO MD on Aug 30 2024 2:04PM EST [facility] Radiology Study observation (narrative) Raquel vaughan [facility] XR Chest PA and LateralOrder ed By: Ccf Provider on 08-30-2024 [facility] Basic metabolic 2000 panelon 08-19-2024 Anion gap [Moles/Vol] 11 mmol/L 8 - 15 mmol/L [facility] Calcium [Mass/Vol] 9.5 mg/dL 8.5 - 10. 2 mg/dL [facility] Chloride [Moles/Vol] 102 mmol/L 98 - 10 7 mmol/L [facility] CO2 [Moles/Vol] 24 mmol/L 22 - 30 mmol/L [facility] Creatinine [Mass/Vol] 1.48 mg/dL High 0.73 - 1.22 mg/dL [facility] GFR/1.73 sq M.predicted among non-blacks MDRD (S/P/Bld) [Vol rate/Area] 54 mL/min/{1.73_m2} Low - PINF [facility] Comment on above: Estimated Glomerular Filtration Rate (eGFR) is calculated using the 2020 CKD-EPI creatinine equation. This equation utilizes serum creatinine, sex, and age as parameters. The creatinine assay has traceable calibration to isotope dilution-mass spectrometry. Refer to KDIGO guidelines for clinical interpretation. In patients with unstable renal function, e.g. those with acute kidney injury, the eGFR may not accurately reflect actual GFR. Glucose [Mass/Vol] 87 mg/dL 74 - 99 mg/dL [facility] Comment on above: The [place] Diabete s Association (ADA) provides guidance for cutoff values for fasting glucose and random glucose. The ADA defines fasting as no caloric intake for at least 8 hours. Fasting plasma glucose results between 100 to 125 mg/dL indicate increased risk for diabetes (prediabetes). Fasting plasma glucose results greater than or equal to 126 mg/dL meet the criteria for diagnosis of diabetes. In the absence of unequivocal hyperglycemia, results should be confirmed by repeat testing. In a patient with classic symptoms of hyperglycemia or hyperglycemic crisis, random plasma glucose results greater than or equal to 200 mg/dL meet the criteria for diagnosis of diabetes. Reference: Standards of Medical Care in Diabetes 2016, [place] Diabetes Association. Diabetes Care. 2016.39(Suppl 1). Interpretation and review of laboratory results Abnormal [facility] Potassium [Moles/Vol] 5.2 mmol/L High 3.7 - 5.1 mmol/L [facility] Sodium [Moles/Vol] 137 mmol/L 136 - 144 mmol/L [facility] Urea nitrogen [Mass/Vol] 42 mg/dL High 9 - 24 mg/dL [facility] Anion gap [Moles/Vol] 11 mmol/L Normal 8-15 [facility] Comment on above: Order Comment: Speci men Type: BLOOD SPECIMENOrdering Facility: Address: [address] [place] [address] Performed By: #### 2 4321-2 ####[facility] LABCLIA [id number] [place] [address] [place] Calcium [Mass/Vol] 9.5 mg/dL Normal 8.5-10.2 [facility] Comment on above: Order Comment: Speci men Type: BLOOD SPECIMENOrdering Facility: Address: [address] [place] [address] Performed By: #### 2 4321-2 ####[facility] LABCLIA [id number] [place] [address] [place] Chloride [Moles/Vol] 102 mmol/L Normal 98-107 [facility] Comment on above: Order Comment: Speci men Type: BLOOD SPECIMENOrdering Facility: Address: [address] [place] [address] Performed By: #### 2 4321-2 ####[facility] LABCLIA [id number] [place] [id number] [place] CO2 [Moles/Vol] 24 mmol/L Normal 22-30 [facility] Comment on above: Order Comment: Speci men Type: BLOOD SPECIMENOrdering Facility: Address: [address] [place] [address] Performed By: #### 2 4321-2 ####[facility] LABCLIA [id number] [place] [id number] [place] Creatinine [Mass/Vol] 1.48 mg/dL High 0.73-1.22 [facility] Comment on above: Order Comment: Gilma palomares Type: BLOOD SPECIMENOrdering Facility: Address: [address] [place] [address] Performed By: #### 2 4321-2 ####[facility] LABIA [id number] [address] OF [facility] Creatinine and Glomerular filtration rate.predicted panel (S/P/Bld) 54 mL/min/1.73m??? Low >=60 [facility] Comment on above: Order Comment: Gilma palomares Type: BLOOD SPECIMENOrdering Facility: Address: [address] [place] [address] Result Comment: Delaney mated Glomerular Filtration Rate (eGFR) is calculated using the 2020 CKD-EPI creatinine equation. This equation utilizes serum creatinine, sex, and age as parameters. The creatinine assay has traceable calibration to isotope dilution-mass spectrometry. Refer to KDIGO guidelines for clinical interpretation. In patients with unstable renal function, e.g. those with acute kidney injury, the eGFR may not accurately reflect actual GFR. Performed By: #### 2 4321-2 ####[facility] LABCLIA [id number] [place] [address] [place] Glucose [Mass/Vol] 87 mg/dL Normal 74-99 [facility] Comment on above: Order Comment: Gilma palomares Type: BLOOD SPECIMENOrdering Facility: Address: [address] [place] [address] Result Comment: The [place] Diabetes Association (ADA) provides guidance for cutoff values for fasting glucose and random glucose. The ADA defines fasting as no caloric intake for at least 8 hours. Fasting plasma glucose results between 100 to 125 mg/dL indicate increased risk for diabetes (prediabetes). Fasting plasma glucose results greater than or equal to 126 mg/dL meet the criteria for diagnosis of diabetes. In the absence of unequivocal hyperglycemia, results should be confirmed by repeat testing. In a patient with classic symptoms of hyperglycemia or hyperglycemic crisis, random plasma glucose results greater than or equal to 200 mg/dL meet the criteria for diagnosis of diabetes. Reference: Standards of Medical Care in Diabetes 2016, [place] Diabetes Association. Diabetes Care. 2016.39(Suppl 1). Performed By: #### 2 4321-2 ####[facility] LABCLIA [id number] [address] [address] [place] Potassium [Moles/Vol] 5.2 mmol/L High 3.7-5.1 [facility] Comment on above: Order Comment: Salavdori men Type: BLOOD SPECIMENOrdering Facility: Address: [address] [place] [address] Performed By: #### 2 4321-2 ####[facility] LABCLIA [id number] [address] [address] [place] Sodium [Moles/Vol] 137 mmol/L Normal 136-144 [facility] Comment on above: Order Comment: Gilma palomares Type: BLOOD SPECIMENOrdering Facility: Address: [address] [place], [place] [address] Performed By: #### 2 1-2 ####[facility] LABCLIA [id number] [place] [id number] [place] Urea nitrogen [Mass/Vol] 42 mg/dL High 9-24 [facility] Comment on above: Order Comment: Gilma palomares Type: BLOOD SPECIMENOrdering Facility: Address: [address] [place] [address] Performed By: #### 2 4321-2 ####[facility] LABCLIA [id number] [address] [address] [place] CBC panel Auto (Bld)on 08-19 Erythrocyte distribution width (RBC) [Ratio] 14.8 % 11.5 - 15.0 % [facility] Hematocrit (Bld) [Volume fraction] 39.9 % 39.0 - 51.0 % [facility] Hemoglobin (Bld) [Mass/Vol] 11.6 g/dL Low 13.0 - 17.0 g/dL [facility] Interpretation and review of laboratory results Abnormal [facility] MCH (RBC) [Entitic mass] 25.1 pg Low 26. 0 - 34.0 pg [facility] MCHC (RBC) [Mass/Vol] 29.1 g/dL Low 30.5 - 36.0 g/dL [facility] MCV (RBC) [Entitic vol] 86.2 fL 80.0 - 100.0 fL [facility] Nucleated RBC (Bld) [#/Vol] NINF [facility] Platelet mean volume (Bld) [Entitic vol] 10.8 fL 9.0 - 12.7 fL [facility] Platelets (Bld) [#/Vol] 442 10*3/uL High [facility] RBC (Bld) [#/Vol] 4.63 10*6/uL 4.20 - 6.0 0 m/uL [facility] WBC (Bld) [#/Vol] 11.75 10*3/uL High [facility] Erythrocyte distribution width (RBC) [Ratio] 14.8 % Normal 11.5-15.0 [facility] Comment on above: Order Comment: Speci men Type: BLOOD SPECIMENOrdering Facility: Address: [address] [place] [address] Performed By: #### 5 8410-2 ####[facility] [id number] [place] [address] [place] Hematocrit (Bld) [Volume fraction] 39.9 % Normal 39.0-51.0 [facility] Comment on above: Order Comment: Speci men Type: BLOOD SPECIMENOrdering Facility: Address: [address] [place] [address] Performed By: #### 5 8410-2 ####[facility] LABIA [id number] [place] [address] [place] Hemoglobin (Bld) [Mass/Vol] 11.6 g/dL Low 13.0-17.0 [facility] Comment on above: Order Comment: Speci men Type: BLOOD SPECIMENOrdering Facility: Address: [address] [place] [address] Performed By: #### 5 8410-2 ####[facility] [id number] [place] [address] [place] MCH (RBC) [Entitic mass] 25.1 pg Low 26.0-34.0 [facility] Comment on above: Order Comment: Speci men Type: BLOOD SPECIMENOrdering Facility: Address: [address] [place] [address] Performed By: #### 5 8410-2 ####[facility] [id number] [place] [address] [place] MCHC (RBC) [Mass/Vol] 29.1 g/dL Low 30.5-36.0 [facility] Comment on above: Order Comment: Speci men Type: BLOOD SPECIMENOrdering Facility: Address: [address] [place] [address] Performed By: #### 5 8410-2 ####[facility] [id number] [place] [address] [place] MCV (RBC) [Entitic vol] 86.2 fL Normal 80.0-100.0 [facility] Comment on above: Order Comment: Speci men Type: BLOOD SPECIMENOrdering Facility: Address: [address] [place] [address] Performed By: #### 5 8410-2 ####[facility] [id number] [place] [address] [place] Nucleated RBC (Bld) [#/Vol] 10*3/uL Normal <0.01 [facility] Comment on above: Order Comment: Speci men Type: BLOOD SPECIMENOrdering Facility: Address: [address] [place] [address] Performed By: #### 5 8410-2 ####[facility] LABCLIA [id number] [address] [place] [address] [place] Platelet mean volume (Bld) [Entitic vol] 10.8 fL Normal 9.0-12.7 [facility] Comment on above: Order Comment: Speci men Type: BLOOD SPECIMENOrdering Facility: Address: [address] [place] [address] Performed By: #### 5 8410-2 ####[facility] LABCLIA [id number] [address], [facility]95 [place] Platelets (Bld) [#/Vol] 442 10*3/uL High 150-400 [facility] Comment on above: Order Comment: Speci men Type: BLOOD SPECIMENOrdering Facility: Address: [address] [place] [address] Performed By: #### 5 8410-2 ####[facility] LABIA [id number] [place] [address] [place] RBC (Bld) [#/Vol] 4.63 10*6/uL Normal 4.20-6.00 [facility] Comment on above: Order Comment: Speci men Type: BLOOD SPECIMENOrdering Facility: Address: [address] [place] [address] Performed By: #### 5 8410-2 ####[facility] LABIA [id number] [place] [id number] [place] WBC (Bld) [#/Vol] 11.75 10*3/uL High 3.70-11.00 [facility] Comment on above: Order Comment: Speci men Type: BLOOD SPECIMENOrdering Facility: Address: [address] [place] [address] Performed By: #### 5 8410-2 ####[facility] LABIA [id number] [place] [id number] [place] CNOVon 08-19-2024 CNOV Office Visit (SLEWST ) SHAWNA PRAJAPATI ([id number]) 1965 M Date Time Provider Department 08/19/24 1:00 PM ОЛЬГА HUGHES SLEWST During your visit today, we recorded the following information about you: Pulse Respiration Blood pressure Weight 64/minute 18/minute 98/62 91 kg Ольга Hughes APRN.CNP 08/19/2024 11:51 AM Signed A home sleep study will be scheduled for you; the sleep aquaculture and fisheries professor will arrange the delivery of the equipment via [employer]. When you receive the equipment, please review and follow the included photos for proper sensor placement At bedtime, turn on the device by pressing the start button, and turn it off when you wake up in the morning. If the device shows a red light, replace the battery with one of the extra batteries provided. Expect further communication regarding a new CPAP machine, as your current one is over 5 years old. The results will be available after 1-2 weeks. Then we'll see if we need a PAP titration study in the sleep lab. Then I will prescribe a new PAP machine for you. Ольга Hughes APRN.CNP 08/24/2024 7:36 AM Addendum Recording using ambient Güdpod software for draft documentation of the visit was discussed with the patient/authorized patient portal representative; all questions welcomed and answered. Patient/authorized patient portal representative agreed to proceed [facility] New Patient Evaluation PATIENT NAME: Shawna Prajapati DATE OF SERVICE: August 19, 2024 CONSULTING PROVIDER: Homero Escamilla (Maryam) [address] [facility] [id number] REASON FOR CONSULT: Homero Escamilla sends the patient for an opinion about MARGARITO, no longer has PAP (was homeless). My findings and recommendations will be transmitted electronically via shared medical record to the consulting provider. HPI: Shawna Prajapati is a 59 year old male. Sleep-related history: MARGARITO, needs a replacement PAP device, his was lost during a housing issue, it was >5 yrs old 1. Concerns: - Sleep Apnea - Patient is a 59-year-old male presenting with a history of sleep apnea. Needs a replacement CPAP. - Diagnosed with sleep apnea at [facility] over 5 years ago. - Previously used CPAP therapy, which was helpful. Got machine more than 5 yrs ago, it was lost due to a housing issue. - Used oxygen in conjunction with CPAP approximately 2-3 years ago. - Reports significant improvement in sleep quality with CPAP and oxygen. - Living Situation - Currently renting a room in a house with three other individuals. - Sleep Behaviors - Reports fighting, cussing, and screaming in his sleep. - These behaviors resolved with CPAP use. - Acid Reflux - Reports having acid reflux. - Leg Pains - Experiences sharp pains in his legs but denies restless legs. - Daytime Sleepiness - Denies significant daytime sleepiness. - Reports being active and willing to go about his day. - Caffeine Use - Drinks 1-2 cups of coffee daily with sugar and creamer. - Occasionally drinks sweet tea and prefers sugar-free sparkling water. 2. Sleep history: - Overall goals of treatment: Improve sleep quality and reduce apneas. - Sleep habits: - Typical bedtime: Between 20:00 and 21:00 - Typical wake time: Between 07:00 and 09:00 - Time to fall asleep: Varies; quicker with relaxing music. - Nighttime awakening number: Varies; 1-3 times per night to use the bathroom. - Nap schedule: Rarely takes naps. Patient Questionnaires Sleep Scores PAST TREATMENTS: PAP, w/ O2 bleed in about 2 yrs ago PRIOR SLEEP STUDIES: Not available OTHER RELEVANT LABS AND STUDIES: 12/22/22 Echo EF 55-60% PAST MEDICAL HISTORY Diagnosis Date Asthma ([facility]) 1990 Chronic deep vein thrombosis (DVT) of calf muscle vein of right lower extremity ([facility]) 03/27/2023 COPD (chronic obstructive pulmonary disease) ([facility]) 2021 Coronary artery disease COVID-19 07/05/2021 EIC (epidermal inclusion cyst) 11/26/2019 Fibromyalgia 10/28/2016 Folliculitis 11/26/2019 GERD (gastroesophageal reflux disease) 01/27/2019 Hyperlipidemia 07/17/2021 Hypertension 07/17/2021 Inguinal hernia Irregular heartbeat NSTEMI (non-ST elevation myocardial infarction) (HCC) 05/03/2020 [place], [place] MARGARITO on CPAP 2012 with nocturnal O2. Pancreatitis, chronic (HCC) 09/07/2019 Seborrheic dermatitis 11/26/2019 Shingles outbreak 09/12/2021 Spinal stenosis, lumbar region with neurogenic claudication 11/20/2015 PAST SURGICAL HISTORY Procedure Laterality Date CC CORONARY STENT 05/04/2020 [facility] to [facility], [facility] HERNIA REPAIR HX Right 1964 inguinal HERNIA REPAIR HX Left 1990 inguinal HERNIA REPAIR HX 07/27/2024 LAMINECTOMY,LUMBAR 11/08/2021 Dr. Cristóbal Maldonado ACTIVE PROBLEM LIST Seborrheic Dermatitis Asthma (Hcc) Copd (Chronic Obstructive Pulmonary Disease) (Hcc) Margarito On Cpap Hyperlipidemia H (more content not included)... Normal [facility] CNOVon 08-11-2024 CNOV Office Visit (GENSWS ) VICTORINASHAWNA ([id number]) 1965 M Date Time Provider Department 08/11/24 2:30 PM VICTORIA JURADO During your visit today, we recorded the following information about you: Temperature 98.3 degrees Victoria Jurado APRN.ASSISTANT TODDLER TEACHER 08/11/2024 2:57 PM Signed SUBJECTIVE: Shawna Ochoa Prajapati presents for follow up of his ventral hernia repair WITH mesh. On 07/27/2024 he underwent a hernia repair, tolerated the procedure well and was discharged home. Patient complaints: None He denies pain, drainage, redness around wound, difficulty voiding, and constipation. Shawna does admit to lifting 25lb sugar bag and not following the rules. He has had multiple hernia repairs and is aware of the consequences of not adhering to activity restrictions. OBJECTIVE: Temp 36.8 ?C (98.3 ?F) (Temporal) General Appearance: Well developed, No acute distress Abdomen: Abdomen soft, non-distended. Incision: no drainage, no erythema, no swelling, mild ecchymosis, and no tenderness Participation of a fellow, resident, medical student, or advanced practice provider student in performing the sensitive examination was discussed with the patient or authorized patient portal representative. The patient or authorized patient portal representative has agreed to proceed with the sensitive examination. IMPRESSION: Post op course: Normal PLAN: Post-op patient instructions were reviewed with the patient. I have explained to Mr. Prajapati that he may return to normal activity with the following restrictions: No heavy lifting, pushing, or pulling greater than 20 lbs for 8 weeks post-operatively. We discussed thoroughly the reason for the restrictions and he acknowledges potential adverse effects of not following the activity restrictions. I have encouraged him to contact me at any time with any questions or concerns that may arise. 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 - fluticasone (FLONASE ALLERGY RELIEF) 50 mcg/actuation nasal spray Use 2 Sprays in each nostril once daily. - albuterol HFA (PROVENTIL HFA, VENTOLIN HFA) 90 mcg/actuation inhaler Inhale 2 Puffs as instructed every 4 hours as needed. - montelukast (SINGULAIR) 10 mg tablet Take 1 tablet by mouth daily at bedtime. - omeprazole (PRILOSEC) 40 mg capsule Take 1 capsule by mouth once daily. - aspirin, enteric coated (ASPIRIN, ENTERIC COATED) 81 mg EC tablet Take 1 tablet by mouth once daily. - metoprolol tartrate, short acting, (LOPRESSOR) 25 mg tablet Take 1 tablet by mouth two times a day. - albuterol (PROVENTIL) 2.5 mg /3 mL (0.083 %) nebulizer solution Use one vial every 4 hours as needed for wheezing/shortness of breath. Use over 5-15minutes. - albuterol HFA (PROVENTIL HFA, VENTOLIN HFA) 90 mcg/actuation inhaler Inhale 2 Puffs as instructed every 4 hours as needed for wheezing/shortness of breath. - lisinopril (ZESTRIL) 10 mg tablet Take 1 tablet by mouth once daily. - chlorthalidone (HYGROTON) 25 mg tablet Take 1 tablet by mouth once daily. - BREZTRI AEROSPHERE 160-9-4.8 mcg/actuation HFA aerosol inhaler INHALE TWO (2) PUFFS BY MOUTH TWICE DAILY INSTRUCTED Problem List As Of Date 08/11/2024 Noted Resolved EIC (epidermal inclusion cyst) [L72.0] 11/26/2019 05/17/2022 Folliculitis [L73.9] 11/26/2019 05/17/2022 Seborrheic dermatitis [L21.9] 11/26/2019 Asthma [J45.909] 1990 COPD (chronic obstructive pulmonary disease) (H*2021 MARGARITO on CPAP [G47.33] 2012 Hyperlipidemia [E78.5] 07/17/2021 Hypertension [I10] 07/17/2021 Coronary artery disease involving pechanga heart *08/15/2022 Obesity, Class I, BMI 30-34.9 [E66.811] 12/26/2022 Homelessness [Z59.00] 12/26/2022 Chronic deep vein thrombosis (DVT) of calf musc*03/27/2023 Gastroesophageal reflux disease without esophag*03/27/2023 Delusions (HCC) [F22] 03/28/2023 Bilateral edema of lower extremity [R60.0] 07/17/2023 Constipation [K59.00] 11/26/2023 Lung nodules [R91.8] 04/30/2024 History of cigarette smoking [Z87.891] 04/30/2024 PVD (peripheral vascular disease) [I73.9] 07/26/2024 Encounter Status:Closed by VICTORIA JURADO [facility]/11/24 [facility] Tele[facility] (INTMWS) PRAJAPATISHAWNA REYNA ([id number]) 1965 M Date Time Provider Department 07/30/24 SAMIR JORDAN INTMWS During your visit today, we recorded the following information about you: Abbie Davis RN 07/30/2024 3:54 PM Signed Patient reports he had surgery 3 days ago (Per record: LAPAROSCOPIC HERNIORRHAPHY FOR REDUCIBLE VENTRAL LESS THAN 3cm with Michelle Castaneda MD on 07/27/2024 ). Patient asking Dr[address] Jordan if he should start taking his Xarelto and Metoprolol medication again? States he stopped taking them for the procedure and has not restarted them yet. Please call patient today, with reply, if possible. STAR Alejandre Victor H, MD 07/31/2024 8:15 AM Signed Resume all chronic medications, including metoprolol and Xarelto. Hiram Hair LPN 07/31/2024 8:48 AM Signed Phoned patient went over notes from Dr Jordan with understanding. He will restart the medications today. Allergies As of Date: 07/30/2024 Noted Allergy Reaction CABBAGE 11/09/2021 14 - Other: See Comments Comments: dysphagia LETTUCE 11/09/2021 14 - Other: See Comments Comments: dysphagia ONION EXTRACT 11/09/2021 11 - Vomiting GARLIC OIL 07/02/2022 8 - GI Upset Date Reviewed: 07/27/2024 Reviewed by: Jennifer Bravo, STAR - Fully Assessed Reason for Visit: Patient Question [6307] Prescriptions as of 07/31/2024 - rivaroxaban (XARELTO) 20 mg tablet Take 20 mg by mouth daily with dinner. - oxyCODONE-acetaminophe n (PERCOCET) 5-325 mg tablet Take 1 tablet by mouth four times a day as needed for pain for up to 5 days. FOR PAIN. - fluticasone (FLONASE ALLERGY RELIEF) 50 mcg/actuation nasal spray Use 2 Sprays in each nostril once daily. - albuterol HFA (PROVENTIL HFA, VENTOLIN HFA) 90 mcg/actuation inhaler Inhale 2 Puffs as instructed every 4 hours as needed. - montelukast (SINGULAIR) 10 mg tablet Take 1 tablet by mouth daily at bedtime. - omeprazole (PRILOSEC) 40 mg capsule Take 1 capsule by mouth once daily. - aspirin, enteric coated (ASPIRIN, ENTERIC COATED) 81 mg EC tablet Take 1 tablet by mouth once daily. - metoprolol tartrate, short acting, (LOPRESSOR) 25 mg tablet Take 1 tablet by mouth two times a day. - albuterol (PROVENTIL) 2.5 mg /3 mL (0.083 %) nebulizer solution Use one vial every 4 hours as needed for wheezing/shortness of breath. Use over 5-15minutes. - albuterol HFA (PROVENTIL HFA, VENTOLIN HFA) 90 mcg/actuation inhaler Inhale 2 Puffs as instructed every 4 hours as needed for wheezing/shortness of breath. - lisinopril (ZESTRIL) 10 mg tablet Take 1 tablet by mouth once daily. - chlorthalidone (HYGROTON) 25 mg tablet Take 1 tablet by mouth once daily. - BREZTRI AEROSPHERE 160-9-4.8 mcg/actuation HFA aerosol inhaler INHALE TWO (2) PUFFS BY MOUTH TWICE DAILY INSTRUCTED Problem List As Of Date 07/30/2024 Noted Resolved EIC (epidermal inclusion cyst) [L72.0] 11/26/2019 05/17/2022 Folliculitis [L73.9] 11/26/2019 05/17/2022 Seborrheic dermatitis [L21.9] 11/26/2019 Asthma [J45.909] 1990 COPD (chronic obstructive pulmonary disease) (H*2021 MARGARITO on CPAP [G47.33] 2012 Hyperlipidemia [E78.5] 07/17/2021 Hypertension [I10] 07/17/2021 Coronary artery disease involving pechanga heart *08/15/2022 Obesity, Class I, BMI 30-34.9 [E66.811] 12/26/2022 Homelessness [Z59.00] 12/26/2022 Chronic deep vein thrombosis (DVT) of calf musc*03/27/2023 Gastroesophageal reflux disease without esophag*03/27/2023 Delusions (HCC) [F22] 03/28/2023 Bilateral edema of lower extremity [R60.0] 07/17/2023 Constipation [K59.00] 11/26/2023 Lung nodules [R91.8] 04/30/2024 History of cigarette smoking [Z87.891] 04/30/2024 PVD (peripheral vascular disease) [I73.9] 07/26/2024 Encounter Status:Closed by HIRAM HAIR on 07/31/24 [facility] ANES POSTPROC EVALon 025 ANES POSTPROC EVAL HNO ID: [id number] Author: DEMAR BARNETT MD Service: Anesthesiology Author Type: Anesthesiologist Type: Anesthesia Postprocedure Evaluation Filed: 07/27/2024 12:39 Note Text: POST ANESTHESIA EVALUATION NOTE : 1965 Procedure Summary Date: 07/27/24 Room / Location: AL OR / AL OR Anesthesia Start: 1005 Anesthesia Stop: 1147 Procedure: LAPAROSCOPIC HERNIORRHAPHY FOR REDUCIBLE VENTRAL LESS THAN 3cm (Abdomen) Diagnosis: Ventral hernia with gangrene (Ventral hernia with gangrene [K43.7]) Surgeons: Michelle Castaneda MD Responsible Provider: Demar Barnett MD Anesthesia Type: general ASA Status: 3 Anesthesia Type: general Airway Type: ETT Last Vitals Vitals Value Taken Time BP 111/61 07/27/24 1230 Temp 36.3 ?C (97.3 ?F) 07/27/24 1145 Pulse 73 07/27/24 1238 Resp 17 07/27/24 1238 SpO2 97 % 07/27/24 1238 Vitals shown include unfiled device data. Post Anesthesia Patient Status Patient Evaluation: bedside. Anticipated Disposition: phase 2 then home. Neurological Status: aware and responsive. Pulmonary Status: breathing comfortably on room air Airway Control: returned to baseline unsupported. Cardiovascular Status: stable. Pain Management: clinically adequate Postoperative Hydration: acceptable. Intraoperative Events: no significant anesthesia events Post Operative Nausea/Vomiting Status: no significant post operative nausea or vomiting Recommendation: continue current plan of care. Anesthesia Observations No Documentation SIGNATURE: Demar Barnett MD PATIENT NAME: Shawna Prajapati DATE: July 27, 2024 TIME: 12:39 PM CSN: [id number] [facility] ANES PRE-OPon 07-27-2024 ANES PRE-OP HNO ID: [id number] Author: DEMAR BARNETT MD Service: Anesthesiology Author Type: Anesthesiologist Type: Anesthesia Preprocedure Evaluation Filed: 07/27/2024 08:01 Note Text: ANESTHESIOLOGY DAY OF SURGERY NOTE : 1965 Procedure Information Date/Time: 07/27/24915 Procedure: LAPAROSCOPIC HERNIORRHAPHY FOR REDUCIBLE VENTRAL LESS THAN 3cm (Abdomen) Location: AL OR05 / AL OR Surgeons: Michelle Castaneda MD Estimated body mass index is 31.17 kg/m? as calculated from the following: Height as of 07/20/24: 170.2 cm (5' 7). Weight as of 07/20/24: 90.3 kg (199 lb). Most recent hematocrit and potassium results: Hematocrit 39.8 07/20/2024 Potassium 4.7 07/20/2024 Relevant Problems ANESTHESIA (+) MARGARITO on CPAP CARDIO (+) Chronic deep vein thrombosis (DVT) of calf muscle vein of right lower extremity (HCC) (+) 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 (+) Hypertension GI (+) Gastroesophageal reflux disease without esophagitis PULMONARY (+) Asthma (HCC) (+) COPD (chronic obstructive pulmonary disease) (HCC) (+) MARGARITO on CPAP I - PHYSICAL EVALUATION AIRWAY Patient intubated: No. Tracheostomy tube not present Mallampati: II. TM distance: >3 FB. Neck ROM: full ROM without neurological symptoms. Mouth opening: adequate. Short neck: no. Thick neck: no DENTAL Normal dental observations. Dental findings: edentulous. Dentures, upper: complete. Dentures, lower: complete. II - ANESTHESIA PLAN ASA Score: 3 Anesthetic Plan: general Airway type: ETT The patient is not a current smoker. NPO Status: adequate Beta Abran Monitoring Plan Monitoring plan: standard ASA. Post Procedure Analgesic Plan Postoperative analgesic plan: parenteral or oral opioids and multimodal analgesia. Informed Consent Anesthetic risks, benefits, alternatives, personnel and consent discussed: yes. Patient / Responsible Libertarian agrees to proceed: yes Patient / Surrogate agrees to blood products: blood products not planned DNR status not reviewed with patient and/or family prior to surgery. Significant changes in the patient condition since the History and Physical, not otherwise documented in primary service progress note: no. Potential Anesthesia issues that may suggest increased risk of complications or contraindication to planned procedure: none. Discussed the possibility of lip / dental damage: yes No vitals data found for the desired time range. Facility-Administered Medications as of 07/27/2024 Medication Dose Route Frequency lidocaine (PF) 10 mg/mL (1 %) 1-2 mg injection (XYLOCAINE) 0.1-0.2 mL INTRADERMAL PRN lactated ringers iv infusion 5-30 mL/hr INTRAVENOUS CONTINUOUS NaCl 0.9% iv flush bag 20 mL INTRAVENOUS PRN ceFAZolin iv piggyback 2 g in D5W (iso-osmotic) 100 mL (ANCEF) 2 g INTRAVENOUS Pre-Op Once acetaminophen 1,000 mg tab(s) (TYLENOL) 1,000 mg ORAL Pre-Op Once promethazine 12.5 mg tab(s) (PHENERGAN) 12.5 mg ORAL Pre-Op Once scopolamine (delivers 1 mg over 3 days) 1 Patch (TRANSDERM-SCOP) 1 Patch TRANSDERMAL ONCE scopolamine - VERIFY patch OTHER q 8 H [START ON 07/28/2024] scopolamine - REMOVE PATCH OTHER ONCE lactated ringers iv infusion 30 mL/hr INTRAVENOUS CONTINUOUS ipratropium-albuterol 3 mL nebulizer solution (DUONEB) 3 mL INHALATION ONCE Outpatient Medications as of 07/27/2024 Medication Sig omeprazole (PRILOSEC) 40 mg capsule Take 1 capsule by mouth once daily. aspirin, enteric coated (ASPIRIN, ENTERIC COATED) 81 mg EC tablet Take 1 tablet by mouth once daily. metoprolol tartrate, short acting, (LOPRESSOR) 25 mg tablet Take 1 tablet by mouth two times a day. albuterol (PROVENTIL) 2.5 mg /3 mL (0.083 %) nebulizer solution Use one vial every 4 hours as needed for wheezing/shortness of breath. Use over 5-15minutes. lisinopril (ZESTRIL) 10 mg tablet Take 1 tablet by mouth once daily. chlorthalidone (HYGROTON) 25 mg tablet Take 1 tablet by mouth once daily. BREZTRI AEROSPHERE 160-9-4.8 mcg/actuation HFA aerosol inhaler INHALE TWO (2) PUFFS BY MOUTH TWICE DAILY INSTRUCTED rivaroxaban (XARELTO) 20 mg tablet Take 20 mg by mouth daily with dinner. albuterol HFA (PROVENTIL HFA, VENTOLIN HFA) 90 mcg/actuation inhaler Inhale 2 Puffs as instructed every 4 hours as needed for wheezing/shortness of breath. I have interviewed and examined the patient. I have reviewed the medical record and/or the pre-anesthesia evaluation, pertinent labs, and test results. This contains updated information obtained within 48 hours of Surgery/Procedure. SIGNATURE: Demar Barnett MD PATIENT NAME: Shawna Prajapati DATE: July 27, 2024 TIME: 8:01 AM CSN: [id number] [facility] BRIEF OP NOTon 07-27-2024 BRIEF OP NOT HNO ID: [id number] Author: MICHELLE CASTANEDA MD Service: General Surgery Author Type: Physician Type: Brief Op Note Filed: 07/29/2024 16:35 Note Text: BRIEF OPERATIVE NOTATION FOR SURGICAL PROCEDURE. Shawna Prajapati 1965 [id number] male LOG ID: [id number] Surgery/Procedure Date: 07/27/2024 Incision/Procedure Start Time: 10:30 AM Incision Close/Procedure End Time: 11:27 AM Surgeon(s)/Procedurali st(s) and Window Shade Ring Coverer(s): Surgeons and Role: * Michelle Castaneda MD - Primary Physician Window Shade Ring Coverer: Tess Lebron PA-C REFERRING PHYSICIAN: Outpatient DEPT: [facility] PROVIDER: Kassidy POS: 2B2=IUCENILRME ANESTHESIA: General ASA CLASS: 3 - Severe DIAGNOSIS: supraumbilical ventral hernia PROCEDURE: Initial anterior abdominal hernia repair: 23735 - <3 cm incarcerated or strangulated - Laparoscopic intraperitoneal onlay mesh repair IVF: 1500 EBL: 26 Specimens: hernia sac ADDITIONAL DIAGNOSES: FINDINGS: 1cm defect COMPLICATIONS: None PMHx - PAST MEDICAL HISTORY Diagnosis Date Asthma 1990 Chronic deep vein thrombosis (DVT) of calf muscle vein of right lower extremity ([facility]) 03/27/2023 COPD (chronic obstructive pulmonary disease) ([facility]) 2021 Coronary artery disease COVID-19 07/05/2021 EIC (epidermal inclusion cyst) 11/26/2019 Fibromyalgia 10/28/2016 Folliculitis 11/26/2019 GERD (gastroesophageal reflux disease) 01/27/2019 Hyperlipidemia 07/17/2021 Hypertension 07/17/2021 Inguinal hernia Irregular heartbeat NSTEMI (non-ST elevation myocardial infarction) ([facility]) 05/03/2020 [place] MARGARITO on CPAP 2012 with nocturnal O2. Pancreatitis, chronic ([facility]) 09/07/2019 Seborrheic dermatitis 11/26/2019 Shingles outbreak 09/12/2021 Spinal stenosis, lumbar region with neurogenic claudication 11/20/2015 COMORBIDITIES - COPD, Coumadin Tx, CAD, and [place] Post Op Occurrences - None Wound Classification - Clean Operative note dictated in the dictation system. Michelle Castaneda MD [facility] HISTORY PHYSICALon HISTORY PHYSICAL HNO ID: [id number] Author: MICHELLE CASTANEDA MD Service: General Surgery Author Type: Physician Type: H&P Filed: 07/27/2024 09:27 Note Text: HISTORY AND PHYSICAL Shawna Ochoa Victorina 1965 REFERRING PHYSICIAN: Samir Jordan MD CHIEF COMPLAINT: Consult (Umb hernia) HPI: Shawna returns today with complaints of worsening discomfort in his ventral hernia site along with questionable issues in his inguinal regions. He most recently presented to [facility] emergency department with complaint of worsening abdominal pain on May 31, 2024. He was noted to be on Xarelto at that time. On exam he was noted to be tender in the mid abdominal region. CT scan of the abdomen pelvis demonstrated a 2.6 cm left iliac aneurysm was felt to be a fat-containing inguinal hernia but no ventral hernia. It was recommended he follow-up with vascular surgery for his iliac aneurysm. I initially seen Shawna when he was a 56 year old male with a complaint of a bulge and discomfort in his mid abdomen. The patient notes discomfort in this area with pressing on the supraumbilical area. The symptoms have increased, over the past 3 months. The patient notes no symptoms of bowel obstruction and denies nausea or vomiting. The patient was seen by his primary care physician who felt the patient has a hernia. Shawna was referred for evaluation and treatment. On evaluation I suspect that he had a supraumbilical hernia but got approved so. I was also concerned given his past history that he could have a degree of cirrhosis and/or ascites. I obtained a CT scan of the abdomen pelvis. This was obtained on July 15, 2022. This demonstrated: IMPRESSION: 1. Small supraumbilical hernia with haziness of the fat suggesting some degree of inflammation. 2. 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 Suggest nonemergent vascular consult. 3. Hepatic steatosis. Patient has a history of asthma COPD. Spirometry notes an FVC of 69% predicted and an FEV1 of 37% predicted with an FEV1 of 1.43 L. He notes a history of myocardial infarction 2020 with stent placement and is currently on Plavix. He states his professor of psychology was Dr. Hanson in [place] but has not seen him for some time and needs to establish with cardiology locally. Did obtain records from Dr. Hanson's office. We received a reply that the patient did not follow-up with Dr. Hanson after his initial stent placement in 2000. Upon further discussion with the patient today he states he has not seen a professor of psychology since discharge from the hospital for stent placement after his myocardial infarction The patient is being seen by me at the request of Dr. Samir Jordan MD for my opinion and advice regarding ventral hernia. He did establish with the [facility] heart group. He had an echocardiogram in December 15, 2022. This demonstrated a 55 to 6% ejection fraction and otherwise no specific abnormalities. PAST MEDICAL HISTORY PAST MEDICAL HISTORY Diagnosis Date Asthma 1990 Chronic deep vein thrombosis (DVT) of calf muscle vein of right lower extremity ([facility]) 03/27/2023 COPD (chronic obstructive pulmonary disease) ([facility]) 2021 Coronary artery disease COVID-19 07/05/2021 EIC (epidermal inclusion cyst) 11/26/2019 Fibromyalgia 10/28/2016 Folliculitis 11/26/2019 GERD (gastroesophageal reflux disease) 01/27/2019 Hyperlipidemia 07/17/2021 Hypertension 07/17/2021 Inguinal hernia Irregular heartbeat NSTEMI (non-ST elevation myocardial infarction) (HCC) 05/03/2020 [place], [place] MARGARITO on CPAP 2012 with nocturnal O2. Pancreatitis, chronic (HCC) 09/07/2019 Seborrheic dermatitis 11/26/2019 Shingles outbreak 09/12/2021 Spinal stenosis, lumbar region with neurogenic claudication 11/20/2015 PAST SURGICAL HISTORY PAST SURGICAL HISTORY Procedure Laterality Date CC CORONARY STENT 05/04/2020 ARNOLD to LAD AND Circ, [facility] HERNIA REPAIR HX Right 1964 inguinal HERNIA REPAIR HX Left 1990 inguinal LAMINECTOMY,LUMBAR 11/08/2021 Dr. Cristóbal Maldonado CURRENT MEDICATIONS Current Outpatient Medications Medication Sig omeprazole (PRILOSEC) 40 mg capsule Take 1 capsule by mouth once daily. aspirin, enteric coated (ASPIRIN, ENTERIC COATED) 81 mg EC tablet Take 1 tablet by mouth once daily. metoprolol tartrate, short acting, (LOPRESSOR) 25 mg tablet Take 1 tablet by mouth two times a day. albuterol (PROVENTIL) 2.5 mg /3 mL (0.083 %) nebulizer solution Use one vial every 4 hours as needed for wheezing/shortness of breath. Use over 5-15minutes. albuterol HFA (PROVENTIL HFA, VENTOLIN HFA) 90 mcg/actuation inhaler Inhale 2 Puffs as instructed every 4 hours as needed for wheezing/shortness of breath. lisinopril (ZESTRIL) 10 mg tablet Take 1 tablet by mouth once daily. chlorthalidone (HYGROTON) 25 mg tablet Take 1 tablet by mouth once daily. BREZTRI AEROSPHERE 160-9-4.8 mcg/actuation HFA aerosol in (more content not included)... Normal [facility] OPERATIVE NOon 07-27-2024 OPERATIVE NO HNO ID: [id number] Author: MICHELLE CASTANEDA MD Service: General Surgery Author Type: Resident Type: Operative Report Filed: 07/28/2024 05:14 Note Text: Attestation signed by Michelle Castaneda MD at 07/28/2024 5:14 AM PARTICIPATION IN SURGERY/PROCEDURE: Resident performed the procedure, under direct supervision and the remainder of the procedure was performed by the primary surgeon/proceduralist with assistance. OPERATIVE/PROCEDURE REPORT LOG ID: [id number] SURGERY/PROCEDURE DATE: 07/27/2024 INCISION/PROCEDURE START TIME: 10:30 AM INCISION CLOSE/PROCEDURE END TIME: 11:27 AM SURGEON(S)/PROCEDURALI ST(S) AND ANIMAL KEEPER HEAD(S): Surgeons and Role: * Michelle Castaneda MD - Primary * Carin Bueno DO - Resident - Assisting Physician Window Shade Ring Coverer: Tess Lebron PA-C SURGERY/PROCEDURE(S): LAPAROSCOPIC HERNIORRHAPHY FOR REDUCIBLE VENTRAL LESS THAN 3cm: 38116 (CPT?) ANESTHESIA: General SURGERY/PROCEDURE DETAILS: The risks and benefits of the procedure were explained to the patient and informed consent obtained. The patient was transferred from preoperative area to the operating suite on [facility]. The patient was positioned supine with both arms tucked. A sign-in was conducted confirming the patient, procedure and laterality. Anesthesia was induced smoothly without complication. The patient was then prepped and draped in usual sterile fashion. A final timeout was then conducted. A supraumbilical vertical midline incision was sharply made, the subcutaneous tissue was dissected bluntly and the umbilical stalk grasped. There was a small 1-cm fascial defect containing a moderate amount of incarcerated preperitoneal fat. The hernia sac and preperitoneal fat was transected and sent to pathology. A 5-mm port was placed through the fascial defect, insufflation initiated and well tolerated. The abdomen was inspected, no injury was entry was found. Two 5-mm ports were placed in the left lateral abdomen. There was a single band with associated colon adhered to the fascial defect. This adhesion was sharply lysed to protect the bowel. A 12-mm port was then placed through the midline incision. An 8.6-cm round mesh with 2-0 prolene stitch at the middle was introduced into the abdomen. The prolene stitch was used to center the mesh under the fascial defect. The fascia was closed with interrupted 2-0 prolene in figure of eight fashion. The mesh was fixed with 4 cardinal trans-fascial sutures of 2-0 prolene and surgitacks. The mesh was well approximated and laying flat. Local anesthesia was injected at the skin and fascial level. The port sites were removed under direct vision and abdomen exsufflated. Skin incisions were closed with 4-0 subcuticular Monocryl and sterile dressings applied. All instrument, sponge and needle counts were correct. Anesthesia was reversed without difficulty and patient was taken to PACU in stable condition. PRE-OP/PRE-PROCEDURE DIAGNOSIS: Ventral hernia POST-OP/POST-PROCEDURE DIAGNOSIS: Same as Preop ESTIMATED BLOOD LOSS: 10 mls SPECIMENS: ID Type Source Tests Collected by Time Destination A : Tissue Hernia Sac SURGICAL PATHOLOGY Michelle Castaneda MD 07/27/2024 11:15 AM IMPLANTABLE DEVICES: Implant Name Type Inv. Item Serial No. Dough Maker Lot No. LRB No. Used Action MESH PARIETEX 8.6CM SMALL COLLAGEN SURGICAL PATCH SELF CENTER COMPOSITE - [id number] Mesh MESH PARIETEX 8.6CM SMALL COLLAGEN SURGICAL PATCH SELF CENTER COMPOSITE [employer] [id number] N/A 1 Implanted DRAINS: None COMPLICATIONS: None CLOSURE TECHNIQUE: Primary PARTICIPATION IN SURGERY/PROCEDURE: I/primary surgeon/proceduralist performed the procedure with assistance. The TEJ assisted with moving and prepping the patient. SIGNATURE: Carin Bueno DO PATIENT NAME: Shawna Prajapati DATE: July 27, 2024 TIME: 11:44 AM [facility] Pathology biopsy report Fred (Tiss)on 07-27-2024 AP DISCLAIMER [facility] Comment on above: Order Comment: Speci men Type: TISSUE SPECIMEN Ordering Facility: Address: [address] [place] [address] Result Comment: Harley romero Developed Test (LDT) Disclaimer: Performance characteristics of immunohistochemical, immunofluorescent, and chromogenic in-situ hybridization tests have been determined by the performing laboratory within [facility] Jhon Cristóbal [facility] Pathology and Laboratory Medicine Department ([facility], [facility], [facility], [facility], [facility], [facility], or [facility]) in a manner consistent with CLIA requirements. One or more of these tests may not have been cleared or approved by the FDA. [facility] is regulated under CLIA as qualified to perform high-complexity testing. These tests are used for clinical purposes. These should not be regarded as investigational or for research. Positive and negative controls stain appropriately. Performed By: #### 6 6121-5 #### [facility] CLIA [id number] [address] [place] [address] [place] CASE REPORT Normal [facility] Comment on above: Order Comment: Speci men Type: TISSUE SPECIMEN Ordering Facility: Address: [address] [place] [address] Result Comment: [facility] Report Case: [id number] Authorizing Provider: Michelle Castaneda MD Collected: 07/27/2024 11:15 AM Ordering Location: [facility] Surgery Received: 07/27/2024 12:06 PM Pathologist: Carmen Acuna MD Specimen: Hernia Sac Performed By: #### 6 6121-5 #### [facility] CLIA [id number] [address] [place] [address] [place] CLINICAL HISTORY Normal [facility] Comment on above: Order Comment: Speci men Type: TISSUE SPECIMEN Ordering Facility: Address: [address] [place] [address] Result Comment: Pre- op diagnosis: Ventral hernia with gangrene [K43.7] Performed By: #### 6 6121-5 #### [facility] CLIA [id number] [address] [place] [address] [place] FINAL DIAGNOSIS Normal [facility] Comment on above: Order Comment: Speci men Type: TISSUE SPECIMEN Ordering Facility: Address: [address] [place] [address] Result Comment: A. S oft tissue, ventral, herniorrhaphy: - Hernia sac. at 1408 EDT Performed By: #### 6 6121-5 #### [facility] CLIA [id number] [address] [place] [address] [place] FINAL PERFORMING LAB Normal [facility] Comment on above: Order Comment: Speci men Type: TISSUE SPECIMEN Ordering Facility: Address: [address] [place] [address] Result Comment: Diag nostic interpretation performed at: [facility], [address] [place] [address] CLIA# [id number] Metal Stamping Machine Operator: Jose Price MD Performed By: #### 6 6121-5 #### [facility] CLIA [id number] [address] [place] [address] [place] GROSS DESCRIPTION A. Hernia Sac Normal [facility] Comment on above: Order Comment: Speci men Type: TISSUE SPECIMEN Ordering Facility: Address: [address] [place] [address] Result Comment: Rece ived in formalin labeled hernia sac is a segment of yellow-pink fibroadipose and membranous soft tissue measuring 3.2 x 2.4 x 1.7 cm. No nodularity or induration is identified. A patient portal representative section is submitted in formalin in cassette A1. Gross examination performed at [facility], [address] [place] [address] 07/27/24 4:15 PM Performed By: #### 6 6121-5 #### [facility] CLIA [id number] [address] [place] [address] [place] Basic metabolic 2000 panelon 07-20-2024 Anion gap [Moles/Vol] 10 mmol/L Normal 8-15 [facility] Comment on above: Order Comment: Speci men Type: BLOOD SPECIMENOrdering Facility: Address: [address] [place] [address] Performed By: #### 2 4321-2 ####[facility] VICKY MILLTOWNCLIA [id number] [place] [address] [place] Calcium [Mass/Vol] 9.1 mg/dL Normal 8.5-10.2 [facility] Comment on above: Order Comment: Speci men Type: BLOOD SPECIMENOrdering Facility: Address: [address] [place] [address] Performed By: #### 2 4321-2 ####[facility] MILLTOWNCLIA [id number] [place] [address] [place] Chloride [Moles/Vol] 101 mmol/L Normal 98-107 [facility] Comment on above: Order Comment: Speci men Type: BLOOD SPECIMENOrdering Facility: Address: [address] [place] [address] Performed By: #### 2 4321-2 ####[facility] MILLTOWNCLIA [id number] [place] [address] [place] CO2 [Moles/Vol] 26 mmol/L Normal 22-30 [facility] Comment on above: Order Comment: Speci men Type: BLOOD SPECIMENOrdering Facility: Address: [address] [place] [address] Performed By: #### 2 4321-2 ####[facility] MILLTOWNCLIA [id number] [place] [address] [place] Creatinine [Mass/Vol] 1.43 mg/dL High 0.73-1.22 [facility] Comment on above: Order Comment: Speci men Type: BLOOD SPECIMENOrdering Facility: Address: [address] [place] [address] Performed By: #### 2 4321-2 ####[facility] [id number] [place] [address] [place] Creatinine and Glomerular filtration rate.predicted panel (S/P/Bld) 56 mL/min/1.73m??? Low >=60 [facility] Comment on above: Order Comment: Gilma palomares Type: BLOOD SPECIMENOrdering Facility: Address: [address] [place] [address] Result Comment: Delaney mated Glomerular Filtration Rate (eGFR) is calculated using the 2020 CKD-EPI creatinine equation. This equation utilizes serum creatinine, sex, and age as parameters. The creatinine assay has traceable calibration to isotope dilution-mass spectrometry. Refer to KDIGO guidelines for clinical interpretation. In patients with unstable renal function, e.g. those with acute kidney injury, the eGFR may not accurately reflect actual GFR. Performed By: #### 2 4321-2 ####[facility] [id number] [place] [address] [place] Glucose [Mass/Vol] 100 mg/dL High 74-99 [facility] Comment on above: Order Comment: Gilma palomares Type: BLOOD SPECIMENOrdering Facility: Address: [address] [place] [address] Result Comment: The [place] Diabetes Association (ADA) provides guidance for cutoff values for fasting glucose and random glucose. The ADA defines fasting as no caloric intake for at least 8 hours. Fasting plasma glucose results between 100 to 125 mg/dL indicate increased risk for diabetes (prediabetes). Fasting plasma glucose results greater than or equal to 126 mg/dL meet the criteria for diagnosis of diabetes. In the absence of unequivocal hyperglycemia, results should be confirmed by repeat testing. In a patient with classic symptoms of hyperglycemia or hyperglycemic crisis, random plasma glucose results greater than or equal to 200 mg/dL meet the criteria for diagnosis of diabetes. Reference: Standards of Medical Care in Diabetes 2016, [place] Diabetes Association. Diabetes Care. 2016.39(Suppl 1). Performed By: #### 2 4321-2 ####[facility] [id number] [place] [address] [place] Potassium [Moles/Vol] 4.7 mmol/L Normal 3.7-5.1 [facility] Comment on above: Order Comment: Speci men Type: BLOOD SPECIMENOrdering Facility: Address: [address] [place] [address] Performed By: #### 2 4321-2 ####[facility]ICWWILMERL[facility] [id number] [place] [address] [place] Sodium [Moles/Vol] 137 mmol/L Normal 136-144 [facility] Comment on above: Order Comment: Speci men Type: BLOOD SPECIMENOrdering Facility: Address: [address] [place] [address] Performed By: #### 2 4321-2 ####[facility] [id number] [place] [address] [place] Urea nitrogen [Mass/Vol] 32 mg/dL High 9-24 [facility] Comment on above: Order Comment: Speci men Type: BLOOD SPECIMENOrdering Facility: Address: [address] [place] [address] Performed By: #### 2 4321-2 ####[facility] [id number] [place] [address] [place] CBC panel Auto (Bld)on 07-20 Erythrocyte distribution width (RBC) [Ratio] 14.6 % Normal 11.5-15.0 [facility] Comment on above: Order Comment: Speci men Type: BLOOD SPECIMENOrdering Facility: Address: [address] [place] [address] Performed By: #### 5 8410-2 ####[facility] [id number] [place] [address] [place] Hematocrit (Bld) [Volume fraction] 39.8 % Normal 39.0-51.0 [facility] Comment on above: Order Comment: Speci men Type: BLOOD SPECIMENOrdering Facility: Address: [address] [place] [address] Performed By: #### 5 8410-2 ####[facility] ONEIDAOLIVER SPRINGSNCDANDRE [id number] [place] [address] [place] Hemoglobin (Bld) [Mass/Vol] 11.4 g/dL Low 13.0-17.0 [facility] Comment on above: Order Comment: Speci men Type: BLOOD SPECIMENOrdering Facility: Address: [address] [place] [address] Performed By: #### 5 8410-2 ####[facility] [id number] [place] [address] [place] MCH (RBC) [Entitic mass] 25.4 pg Low 26.0-34.0 [facility] Comment on above: Order Comment: Speci men Type: BLOOD SPECIMENOrdering Facility: Address: [address] [place] [address] Performed By: #### 5 8410-2 ####[facility] [id number] [address] [place] MCHC (RBC) [Mass/Vol] 28.6 g/dL Low 30.5-36.0 [facility] Comment on above: Order Comment: Speci men Type: BLOOD SPECIMENOrdering Facility: Address: [address] [place] [address] Performed By: #### 5 8410-2 ####[facility] [id number] [address] [place] MCV (RBC) [Entitic vol] 88.8 fL Normal 80.0-100.0 [facility] Comment on above: Order Comment: Speci men Type: BLOOD SPECIMENOrdering Facility: Address: [address] [place] [address] Performed By: #### 5 8410-2 ####[facility] ONEIDAMILEYA [id number] [place] [address] [place] Nucleated RBC (Bld) [#/Vol] 10*3/uL Normal <0.01 [facility] Comment on above: Order Comment: Speci men Type: BLOOD SPECIMENOrdering Facility: Address: [address] [place] [address] Performed By: #### 5 8410-2 ####[facility]IMMEEWILMERAlyssa [id number] [place] [address] [place] Platelet mean volume (Bld) [Entitic vol] 9.8 fL Normal 9.0-12.7 [facility] Comment on above: Order Comment: Speci men Type: BLOOD SPECIMENOrdering Facility: Address: [address] [place] [address] Performed By: #### 5 8410-2 ####[facility] [id number] [place] [address] [place] Platelets (Bld) [#/Vol] 384 10*3/uL Normal 150-400 [facility] Comment on above: Order Comment: Speci men Type: BLOOD SPECIMENOrdering Facility: Address: [address] [place] [address] Performed By: #### 5 8410-2 ####[facility] ONEIDARIVERVIEW HOSPITALLIA [id number] [place] [address] [place] RBC (Bld) [#/Vol] 4.48 10*6/uL Normal 4.20-6.00 [facility] Comment on above: Order Comment: Speci men Type: BLOOD SPECIMENOrdering Facility: Address: [address] [place] [address] Performed By: #### 5 8410-2 ####[facility]ICWNCLIA [id number] [place] [address] [place] WBC (Bld) [#/Vol] 11.95 10*3/uL High 3.70-11.00 [facility] Comment on above: Order Comment: Speci men Type: BLOOD SPECIMENOrdering Facility: Address: [facility] [place] [address] Performed By: #### 5 8410-2 ####[facility] K[facility]IMMEENCL[facility] [id number] [place] [address] [place] CNOVon 07-20-2024 CNOV Office Visit (PULMWS ) SHAWNA PRAJAPATI ([id number]) 1965 M Date Time Provider Department 07/20/24 10:30 AM HOMERO ESCAMILLA PULMWS During your visit today, we recorded the following information about you: Pulse Respiration Blood pressure Weight 65/minute 16/minute 128/58 91.2 kg Height 1.702 m Homero Escamilla MD 07/20/2024 11:14 AM Signed . Respiratory [place] Note Patient name: Shawna Prajapati PCP: Samir Jordan MD CC: Preoperative respiratory exam HPI: Shawna Prajapati 59 year old male former 40-ktpt-saau smoker quitting in 2020 with PMH significant for obesity, asthma COPD overlap syndrome/GOLD stage 3, GERD, HLD, HTN, MARGARITO requiring CPAP, CAD s/p stents, allergies requiring immunotherapy in the past pending ventral hernia repair. Current inhaled therapy consists of Breztri with as needed albuterol. He was homeless for a while so he no longer has his CPAP machine but has been compliant with his inhaler usage. Current issue with throat clearing and mucus production mainly related to postnasal drip. He has been having significant rhinorrhea as this is allergy season. He was previously on Singulair but has not had a refill in some time. He denies recent bronchitis or hospitalization for his COPD. He remains tobacco free and is pending updated lung cancer screening CT. He denies any wheezing, severe shortness of breath or chest pain. He uses his albuterol on a daily basis. DATA: PFT today: PFTs show severe obstruction without improvement postbronchodilator Imaging / Diagnostic Studies: 03/2024: Chest x-ray shows hyperinflation PAST MEDICAL HISTORY Diagnosis Date Asthma 1990 Chronic deep vein thrombosis (DVT) of calf muscle vein of right lower extremity ([facility]) 03/27/2023 COPD (chronic obstructive pulmonary disease) ([facility]) 2021 Coronary artery disease COVID-19 07/05/2021 EIC (epidermal inclusion cyst) 11/26/2019 Fibromyalgia 10/28/2016 Folliculitis 11/26/2019 GERD (gastroesophageal reflux disease) 01/27/2019 Hyperlipidemia 07/17/2021 Hypertension 07/17/2021 Inguinal hernia Irregular heartbeat NSTEMI (non-ST elevation myocardial infarction) ([facility]) 05/03/2020 [place] MARGARITO on CPAP 2012 with nocturnal O2. Pancreatitis, chronic ([facility]) 09/07/2019 Seborrheic dermatitis 11/26/2019 Shingles outbreak 09/12/2021 Spinal stenosis, lumbar region with neurogenic claudication 11/20/2015 ALLERGIES Allergen Reactions Cabbage Other: See Comments dysphagia Lettuce Other: See Comments dysphagia Onion Extract Vomiting Garlic Oil GI Upset omeprazole (PRILOSEC) 40 mg capsule Take 1 capsule by mouth once daily. aspirin, enteric coated (ASPIRIN, ENTERIC COATED) 81 mg EC tablet Take 1 tablet by mouth once daily. metoprolol tartrate, short acting, (LOPRESSOR) 25 mg tablet Take 1 tablet by mouth two times a day. albuterol (PROVENTIL) 2.5 mg /3 mL (0.083 %) nebulizer solution Use one vial every 4 hours as needed for wheezing/shortness of breath. Use over 5-15minutes. albuterol HFA (PROVENTIL HFA, VENTOLIN HFA) 90 mcg/actuation inhaler Inhale 2 Puffs as instructed every 4 hours as needed for wheezing/shortness of breath. lisinopril (ZESTRIL) 10 mg tablet Take 1 tablet by mouth once daily. chlorthalidone (HYGROTON) 25 mg tablet Take 1 tablet by mouth once daily. BREZTRI AEROSPHERE 160-9-4.8 mcg/actuation HFA aerosol inhaler INHALE TWO (2) PUFFS BY MOUTH TWICE DAILY INSTRUCTED Social History Tobacco Use Smoking status: Former Current packs/day: 0.00 Average packs/day: 3.0 packs/day for 38.8 years (116.4 ttl pk-yrs) Types: Cigarettes Start date: 1981 Quit date: 05/02/2020 Years since quittin.2 Smokeless tobacco: Former Types: Snuff Quit date: 05/02/2020 Tobacco comments: Age 16-05/02/2019 Vaping Use Vaping status: Former Substance Use Topics Alcohol use: Not Currently Drug use: Never FAMILY HISTORY Adopted: Yes Family history unknown: Yes PAST SURGICAL HISTORY Procedure Laterality Date CC CORONARY STENT 05/04/2020 ARNOLD to LAD AND Circ, [facility] HERNIA REPAIR HX Right 1964 inguinal HERNIA REPAIR HX Left 1990 inguinal LAMINECTOMY,LUMBAR 11/08/2021 Dr. Cristóbal Maldonado [facility], Social history, family history and surgical history reviewed and updated in EMR REVIEW OF SYSTEMS: CONSTITUTIONAL: No fevers, chills, nightsweats, unintended weight loss HEENT: Positive nasal congestion/sinus symptoms, allergy problems, postnasal drip CARDIOVASCULAR: No chest pain, dyspnea, palpitations, orthopnea, edema. PULM: See HPI GI: Abdominal pain NEURO: No balance problems, peripheral weakness/paresthesias or numbness of concern. MUSC-SKEL: No joint pain, swelling, or erythema. INTEGUMENTARY: No new skin changes ( PHYSICAL EXAMINATION: BP 128/58 Pulse 65 Resp 16 H (more content not included)... Normal [facility] Neelima 07-20-2024 RAFAEL Telephone ([email or web address]) SHAWNA PRAJAPATI ([id number]) 1965 M Date Time Provider Department 07/20/24 MICHELLE CASTANEDA During your visit today, we recorded the following information about you: iFliberto Haley LPN 07/20/2024 2:45 PM Signed Received medical records from [facility] Medical Records. Filiberto TAMRA Haley Allergies As of Date: 07/20/2024 Noted Allergy Reaction CABBAGE 11/09/2021 14 - Other: See Comments Comments: dysphagia LETTUCE 11/09/2021 14 - Other: See Comments Comments: dysphagia ONION EXTRACT 11/09/2021 11 - Vomiting GARLIC OIL 07/02/2022 8 - GI Upset Date Reviewed: 07/20/2024 Reviewed by: Kacie Palma APRN.ASSISTANT TODDLER TEACHER - Fully Assessed Reason for Visit: Received Outside Medical Records [[id number]] Prescriptions as of 07/20/2024 - fluticasone (FLONASE ALLERGY RELIEF) 50 mcg/actuation nasal spray Use 2 Sprays in each nostril once daily. - albuterol HFA (PROVENTIL HFA, VENTOLIN HFA) 90 mcg/actuation inhaler Inhale 2 Puffs as instructed every 4 hours as needed. - montelukast (SINGULAIR) 10 mg tablet Take 1 tablet by mouth daily at bedtime. - omeprazole (PRILOSEC) 40 mg capsule Take 1 capsule by mouth once daily. - aspirin, enteric coated (ASPIRIN, ENTERIC COATED) 81 mg EC tablet Take 1 tablet by mouth once daily. - metoprolol tartrate, short acting, (LOPRESSOR) 25 mg tablet Take 1 tablet by mouth two times a day. - albuterol (PROVENTIL) 2.5 mg /3 mL (0.083 %) nebulizer solution Use one vial every 4 hours as needed for wheezing/shortness of breath. Use over 5-15minutes. - albuterol HFA (PROVENTIL HFA, VENTOLIN HFA) 90 mcg/actuation inhaler Inhale 2 Puffs as instructed every 4 hours as needed for wheezing/shortness of breath. - lisinopril (ZESTRIL) 10 mg tablet Take 1 tablet by mouth once daily. - chlorthalidone (HYGROTON) 25 mg tablet Take 1 tablet by mouth once daily. - BREZTRI AEROSPHERE 160-9-4.8 mcg/actuation HFA aerosol inhaler INHALE TWO (2) PUFFS BY MOUTH TWICE DAILY INSTRUCTED Problem List As Of Date 07/20/2024 Noted Resolved EIC (epidermal inclusion cyst) [L72.0] 11/26/2019 05/17/2022 Folliculitis [L73.9] 11/26/2019 05/17/2022 Seborrheic dermatitis [L21.9] 11/26/2019 Asthma [J45.909] 1990 COPD (chronic obstructive pulmonary disease) (H*2021 MARGARITO on CPAP [G47.33] 2012 Hyperlipidemia [E78.5] 07/17/2021 Hypertension [I10] 07/17/2021 Coronary artery disease involving pechanga heart *08/15/2022 Obesity, Class I, BMI 30-34.9 [E66.811] 12/26/2022 Homelessness [Z59.00] 12/26/2022 Chronic deep vein thrombosis (DVT) of calf musc*03/27/2023 Gastroesophageal reflux disease without esophag*03/27/2023 Delusions (HCC) [F22] 03/28/2023 Bilateral edema of lower extremity [R60.0] 07/17/2023 Constipation [K59.00] 11/26/2023 Lung nodules [R91.8] 04/30/2024 History of cigarette smoking [Z87.891] 04/30/2024 Encounter Status:Closed by FILIBERTO HALEY on 07/20/24 [facility] HISTORY PHYSICALon HISTORY PHYSICAL HNO ID: [id number] Author: KACIE PALMA APRN.CNP Service: ? Author Type: Nurse Practitioner Type: H&P Filed: 07/26/2024 11:47 Note Text: [facility] HISTORY AND PHYSICAL EXAMINATION SERVICE DATE: 07/20/2024 SERVICE TIME: 11:45 AM PRIMARY CARE PHYSICIAN: Samir Jordan MD Assessment Patient has the following medical conditions which may affect sandra-operative course: COPD (chronic obstructive pulmonary disease) (HCC) Assessment: c/w inhaler usage, received pulmonary optimization below 07/20/2024 Dr. Escamilla, [facility] Pulmonary Assessment/Plan: 1. Preoperative pulmonary assessment -Patient is on maximal inhaled therapy -ARISCAT score 42 placing him at intermediate risk for postoperative pulmonary complications including pneumonia, atelectasis, bronchospasm -[facility] respiratory failure index 24 placing him at a 5% risk of postoperative respiratory failure -Continue Breztri -Perioperative therapy -Aggressive postoperative bronchopulmonary hygiene with flutter/Acapella device and Mucomyst 2. Severe COPD/GOLD stage 3 -Pulmonary function test shows severe obstruction with FEV1 of 40% -See #1 3. MARGARITO -Has history of severe sleep apnea previously on CPAP machine -Referral to sleep medicine -Recommend auto CPAP pre and postoperatively 4. Former cigarette smoker -Former smoker with sequelae of COPD -Continue abstinence -Pending updated lung cancer screening evaluation 5. Postnasal drip -Current mucus production likely related to his rhinorrhea with postnasal drip related to allergies -Restarted Singulair and recommend Flonase nasal spray Hypertension Assessment: controlled on rx Last 14 BP Last 14 Encounter BP Readings: Date: BP: 07/20/2024 128/58 07/20/2024 134/62 07/15/2024 116/70 05/31/2024 88/62 04/25/2024 82/60 04/14/2024 102/62 11/26/2023 100/64 11/11/2023 102/64 10/13/2023 100/62 10/11/2023 98/62 08/22/2023 118/78 07/30/2023 138/72 07/23/2023 116/73 07/17/2023 126/70 Hyperlipidemia Assessment: c/w statin 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 Assessment: hx stents, c/w daily ASA, statin, BB. PCP has been managing, hx homelessness 04/2020 Heart Cath Scanned into [employer] Echo Scanned into Epic 01/06/202310/2022 Pharm/stress test CONCLUSIONS: 1. SPECT Perfusion Study: Normal. 2. There is no scintigraphic evidence for inducible ischemia. 3. No evidence of scarred myocardium. 4. Left ventricle is normal in size. The left ventricle systolic function is normal. 5. Right ventricle is normal in size. The right ventricle systolic function is normal. 6. This is a low risk scan. Gated Stress FBP LVEF % 71 08/16/2022 Ming Ballesteros MD ASSESSMENT/PLAN: 1. 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, unspecified vessel or lesion type - ICD9: 414.01, ICD10: I25.10 (primary diagnosis) His coronary artery disease appears clinically stable at this time as he has no complaints of angina or any anginal equivalents. Having said this he is very minimally active due to his severe shortness of breath from his COPD. Continue aspirin, beta-abran, DIMITRIS inhibitor, statin. Would recommend discontinuing Plavix at this time as he has fulfilled over 2 years of dual antiplatelet therapy. - ECG B/O W INTERP (MED OFFICE) 2. Encounter for other preprocedural examination - ICD9: V72.83, ICD10: Z01.818 He had stenting to his proximal left anterior descending artery and his proximal dominant left circumflex coronary artery. Since then he has had no complaints of chest pain or pressure, but he is not significantly active as he has severe shortness of breath on minimal exertion. Recommend further risk stratification with a nuclear medicine stress test. Those results are readily available, I will report back to his surgeon for the next step. - NM CARDIAC PERF STRESS/PHARM 3. Essential hypertension - ICD9: 401.9, ICD10: I10 - good control - Recommended regular aerobic exercise. - Recommend home blood pressure monitoring, to bring results in on next visit - Goal of BP <130/80 4. Mixed hyperlipidemia - ICD9: 272.2, ICD10: E78.2 - good control - Continue current medication. MARGARITO on CPAP Assessment: 2/2 hx homelessness no current PAP use, following pulmonary History of cigarette smoking Assessment: former [id number]-yeba smoker quitting in 2020 Lung nodules Assessment: under surveillance, following pulmonary Gastroesophageal reflux disease without esophagitis Assessment: controlled on rx Chronic deep vein thrombosis (DVT) of calf muscle vein of right lower extremity (HCC) Assessment: hx, tx with Xarelto, daily ASA currently Bilateral edema of lower extremity Assessment: controlled on rx Delusions (HCC) Assessment: hx, pt with very elaborate stories of past social/family hx Homelessness Assessment: hx (more content not included)... Normal [facility] Panel Informationon 07-20 [facility] [address] [place] [address] Test Date: 2024-07-20 Pat Name: SHAWNA PRAJAPATI Department: Room: Gender: M Artist Color Separation: : 1965 Requested By: Order Number: [id number] Reading MD: Homero Escamilla MD Interpretive Statements Medications and Allergies were reviewed for possible drug interactions per policy. No contraindications or sensitivities were noted. Meds taken: Breztri and Albuterol 3 hours before testing. PRE/POST BRONCHODILATOR: The two largest FVCs were repeatable. The two largest FEV1s were repeatable. Glottic closure detected. 4 puffs Albuterol (360 mcg) delivered by MDI via holding chamber. HR pre = 64/min, HR post = 64/min. The two acceptable DLCO measurements obtained were repeatable. Breath hold time exceeded ATS criteria. IMPRESSION: Spirometry indicates severe obstruction. Negative bronchodilator response. The diffusing capacity (uncorrected for hemoglobin) is reduced. The reduced kCO (DLCO/VA) reflects an alteration of the normal transfer/diffusion of CO from the alveolar regions to the blood. Clinical correlation recommended. Electronically Signed On 07-20-2024 15:00:41 EDT by Homero Escamilla MD ID: [id number] Name: SHAWNA PRAJAPATI Race: White Ht: 67.00 in Wt: 209.99 lbs Age: 59 Gender: Male : 1965 Dx: Stage 3 severe COPD by GOLD classification_ Smoking Hx: Non-smoker Doctor: HOMERO ESCAMILLA Test Date: 07/20/2024 Site: [facility] [place]: Katrina Waite PRE-BRONCH POST-BRONCH Edith LLN Pred ULN %Pred ZScore Edith %Pred %Chg ZScore SPIROMETRY FVC 2.90 2.90 3.86 4.83 75 -1.64 2.89 74 0 -1.68 FEV1 1.22 2.26 3.04 3.78 40 -3.62 1.25 41 0 -3.56 FEV1/FVC 0.42 0.67 0.79 0.89 53 -3.82 0.43 55 3 -3.74 FEFMax 2.92 6.44 8.56 10.68 34 -4.37 2.74 31 -6 -4.51 FEF50 0.45 1.78 3.90 6.03 11 -2.67 0.46 11 3 -2.66 FIF50 2.14 2.17 1 FEF50/FIF50 0.21 90-100 0.21 1 FIVC 2.57 2.60 1 DCT06-90 0.40 1.36 2.78 4.69 14 -3.42 0.36 12 -11 -3.54 ExpiredTime 10.30 14.96 45 TimeToFEFMax 0.06 0.08 39 MOUSTAPHA 0.03 0.03 32 VolExtrap% 1 1 33 LUNG DIFFUSION DLCOunc 11.19 17.23 27.17 37.11 41 -2.65 DLCOStdPB 10.97 17.23 27.17 37.11 40 -2.68 VA 4.34 4.88 6.24 7.61 69 -2.30 Kco 2.53 3.27 4.32 5.46 58 -2.92 Comments: Medications and Allergies were reviewed for possible drug interactions per policy. No contraindications or sensitivities were noted. Meds taken: Breztri and Albuterol 3 hours before testing. PRE/POST BRONCHODILATOR: The two largest FVCs were repeatable. The two largest FEV1s were repeatable. Glottic closure detected. 4 puffs Albuterol (360 mcg) delivered by MDI via holding chamber. HR pre = 64/min, HR post = 64/min. The two acceptable DLCO measurements obtained were repeatable. Breath hold time exceeded ATS criteria. PULMONARY FUNCTION LAB [facility] SPIROMETRY WITH DILATOR IF O BSTRUCTEDon 07-20-2024 DLCO (ml/min/mmHg) 11.19 ml/min/mmHg [facility] DLCO LLN (ml/min/mmHg) 17.23 ml/min/mmHg [place] DLCO PREDICTED (ml/min/mmHg) 27.17 ml/min/mmHg [facility] DLCO ULN (ml/min/mmHg) 37.11 ml/min/mmHg C [facility] DLCO/VA (ml/min/mmHg/L) 0.03 ml/m in/mmHg /L [facility] DLCO/VA PREDICTED (ml/min/mmHg/L) 0.04 ml/min/mmHg /L [facility] DLCO/VAcor (ml/min/mmHg/L) 0.03 ml/min/mmHg /[facility] DLCOcor (ml/min/mmHg) 10.97 ml/min/mmHg [facility] DLCOcor PREDICTED (ml/min/mmHg) 27.17 ml/min/mmHg [facility] ERV PREDICTED (L) 1.29 L/S [facility] FEF25% POST (L/S) 1.18 L/S [facility] FEF25% PRE (L/S) 1.18 L[facility]S [facility] GBH28-50% LLN (L/S) 1.36 L/S [place] [facility] OCL32-20% POST (L/S) 0.36 L/S [facility] AGD89-75% PRE (L/S) 0.4 L/S [facility] land [facility] TKY32-11% PREDICTED (L/S) 2.78 L/S [facility] FEF75% LLN (L/S) 0.34 L/S [facility] FEF75% POST (L/S) 0.13 L[facility]S [facility] FEF75% PRE (L/S0 0.21 L/S [facility] FEF75% PREDICTED (L/S) 0.84 L/S [facility] FEF75% ULN (L/S) 1.95 L/S [facility] FET POST (S) 14.96 S [facility] FET PRE (S) 10.3 S [facility] FEV1 LLN (L) 2.26 L [facility] FEV1 PRE (L) 1.22 L [facility] FEV1 PREDICTED (L) 3.04 L [facility] FEV1 ULN (L) 3.[address] FEV1/FVC LLN (%) 67 % [facility] FEV1/FVC POST (%) 43 % [facility] FEV1/FVC PRE (%) 42 % [facility] FEV1/FVC PREDICTED (%) 79 % [facility] FEV1_POST (L) 1.[address] FVC LLN (L) 2.9 L [facility] FVC POST (L) 2.[address] [facility] FVC PRE (L) 2.9 L [facility] FVC PREDICTED (L) 3.86 L [facility] FVC ULN (L) 4.83 L [facility] IC PREDICTED (L) 2.57 L/S [facility] PEF LLN (L/S) 6.44 L/S [facility] PEF POST (L/S) 2.74 L/S [facility] PEF PRE (L/S) 2.92 L/S [facility] PEF ULN (L/S) 10.68 L/S [facility] SVC LLN (L) 2.9 L/S [facility] SVC PREDICTED (L) 3.86 L/S [facility] SVC ULN (L) 4.83 L/S [facility] VA (L) 4.34 L [facility] VA PREDICTED (L) 6.24 L [facility] CNOVon 07-15-2024 CN Office Visit (GENCASIS ) SHAWNA PRAJAPATI ([id number]) 1965 M Date Time Provider Department 07/15/24 1:30 PM MICHELLE CASTANEDA During your visit today, we recorded the following information about you: Temperature Pulse Respiration Blood pressure 98.2 degrees 80/minute 17/minute 116/70 Weight 88 kg Michelle Castaneda MD 07/15/2024 3:28 PM Signed The following instructions are important for you related to your office visit today with the [facility]. INSTRUCTIONS FOR YOUR SURGICAL PROCEDURE - HERNIA - NON SMOKER We discussed that a hernia is a weakness in the fascia - the strength layer of the abdominal wall. We discussed would rather you hernias repaired with mesh or sutures, open or laparoscopically, it is important to allow your bodies collagen to form a strong permanent repair to minimize the risk of hernia recurrence. It is very important that no heavy lifting be performed for 8 weeks following surgery. We discussed the risks and benefits of your planned procedure. If you have any additional questions, please contact our office immediately. Preadmission testing is an important part of preparation for your procedure. All laboratory studies, x-rays, and additional testing must be available for the preadmission testing staff to help ready you for surgery. You should not take your xeralto blood thinners for 5 days prior to surgery. You should not have anything to eat or drink after midnight the night prior to your surgery. You should wear comfortable clothes for your procedure. Please understand that the operating room schedule is an estimated time for your surgical procedure. Your procedure may be somewhat earlier or somewhat later than the estimated time. You'll be discharged home with postoperative instructions and typically pain medications. Please be aware that many pain medications may cause nausea. You should typically eat light foods as you take your pain medications. Your dressing will usually be able to be removed two to three days following surgery. You may typically shower three days after surgery. If you have Steri-Strips on your incision (little white tapes) you should leave these in place until they fall off. You will typically have a followup office visit 1 to 2 weeks after surgery. Again, if you have any difficulties or concerns, contact our office immediately. If you note any additional difficulties, questions, or concerns, you should contact our office immediately @ [phone] and ask to be transferred to the General Surgery department. Michelle Castaneda MD 07/16/2024 9:48 PM Signed HISTORY AND PHYSICAL Shawna Ochoa Prajapati 1965 REFERRING PHYSICIAN: Samir Jordan MD CHIEF COMPLAINT: Consult (Umb hernia) HPI: Shawna returns today with complaints of worsening discomfort in his ventral hernia site along with questionable issues in his inguinal regions. He most recently presented to [facility] emergency department with complaint of worsening abdominal pain on May 31, 2024. He was noted to be on Xarelto at that time. On exam he was noted to be tender in the mid abdominal region. CT scan of the abdomen pelvis demonstrated a 2.6 cm left iliac aneurysm was felt to be a fat-containing inguinal hernia but no ventral hernia. It was recommended he follow-up with vascular surgery for his iliac aneurysm. I initially seen Shawna when he was a 56 year old male with a complaint of a bulge and discomfort in his mid abdomen. The patient notes discomfort in this area with pressing on the supraumbilical area. The symptoms have increased, over the past 3 months. The patient notes no symptoms of bowel obstruction and denies nausea or vomiting. The patient was seen by his primary care physician who felt the patient has a hernia. Shawna was referred for evaluation and treatment. On evaluation I suspect that he had a supraumbilical hernia but got approved so. I was also concerned given his past history that he could have a degree of cirrhosis and/or ascites. I obtained a CT scan of the abdomen pelvis. This was obtained on July 15, 2022. This demonstrated: IMPRESSION: 1. Small supraumbilical hernia with haziness of the fat suggesting some degree of inflammation. 2. 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 Suggest nonemergent vascular consult. 3. Hepatic steatosis. Patient has a history of asthma COPD. Spirometry notes an FVC of 69% predicted and an FEV1 of 37% predicted with an FEV1 of 1.43 L. He notes a history of myocardial infarction 2020 with stent placement and is currently on Plavix. He states his professor of psychology was Dr. Hanson in [place] but has not seen him for some time and needs to establish with cardiology locally. Did obtain records from Dr. Hanson's office. We received a reply that the p (more content not included)... [facility]INTTagorizeWS[facility] VICTORINASHAWNA P ([id number]) 1965 M Date Time Provider Department 07/08/24 SAMIR JORDAN INTWS During your visit today, we recorded the following information about you: Deandre Ham, RN 07/08/2024 1:43 PM Signed Daiana Morelos- reports pt had some equipment with them, then became homeless for a while. Pt now has a home and would like to have the oxygen he had previous. She will tell pt to schedule and appt with pcp, to get new testing for the oxygen. Reports pt also had a non invasive ventilator at night, and would like to have that back. Tamy states she can push that through electronically with a verbal from pcp. Please phone Tamy for verbal and with any questions: [phone] Samir Jordan MD 07/08/2024 7:40 PM Signed Request information (original order, diagnosis, parameters, etc.) Homero Carrasco MA 2024 8:24 AM Signed Looking at chart patient used to see pulmonary and pcp advised needed to see pulmonary again but not scheduled. Called Tamy and she is aware nothing will be signed/ordered on our end and patient will need to schedule. PSS staff please call patient and schedule with pulmonology. FLORENCIA Gonzales Krystle, RN 07/15/2024 3:14 PM Signed Tamy with Daiana calls back to report that she has spoke with patient and he is not able to get in with Pulmonology until November 2024. Patient reported to Tamy that he is not able to sleep at night because of breathing. He reported to her that he feels he is dying a little each night. Tamy is asking if provider would consider ordering atleast the oxygen for patient until he can be seen by pulmonology if provider is not comfortable ordering the ventilator portion. Tamy reports she will fax over forms that would help qualify patient for the oxygen. Tamy requesting call back at [phone]. STAR Guerrero Victor H, MD 07/15/2024 5:30 PM Signed No. He needs to see pulmonary. Oxygen levels here have been good. Schedule follow up with Dr. Elena Escamilla or Cristóbal Desir. Last seen 07/30/23. November appointment is lung cancer screening, not COPD follow up. Win Pitt, STAR 07/15/2024 5:59 PM Signed Called and left a voicemail for Tamy with Daiana to call back and ask for a nurse to receive the providers message. PSS please schedule Pt with Pulmonary. STAR Graves Michelle 07/16/2024 9:19 AM Signed 1st attempt to reschedule appt in November Abbie Hernandez 07/16/2024 3:42 PM Signed Can pulmonary nurse review and advise what if any testing would be needed prior to arranging a follow up with Pulmonary providers. Thank you Alissa Ochoa LPN 07/19/2024 9:30 AM Signed Appointment in November is with Eliana Cortes for annual LCS follow up (booked as COPD), but CT is not scheduled. He was recently seen July 2023 with Catherine, he should schedule with Kat Click in next available appointment. Noted that patient is scheduled for hernia repair on 07/27 with [facility] on 07/20. Scheduled pre op with EB and PFTs prior at 10AM. LM for patient re: same. [facility] notified. TAMRA Bolaños Krista, LPN 07/19/2024 11:56 AM Signed Tamy with Daiana notified of provider's message. Tamy voiced understanding. TAMRA De Anda Kathleen, LPN 07/19/2024 1:08 PM Signed Spoke with patient about pre op appts Alissa Ochoa LPN Allergies As of Date: 07/08/2024 Noted Allergy Reaction CABBAGE 11/09/2021 14 - Other: See Comments Comments: dysphagia LETTUCE 11/09/2021 14 - Other: See Comments Comments: dysphagia ONION EXTRACT 11/09/2021 11 - Vomiting GARLIC OIL 07/02/2022 8 - GI Upset Date Reviewed: 05/31/2024 Reviewed by: Promise Bernal LPN - Fully Assessed Reason for Visit: Equipment for patient [Other] Prescriptions as of 07/19/2024 - omeprazole (PRILOSEC) 40 mg capsule Take 1 capsule by mouth once daily. - aspirin, enteric coated (ASPIRIN, ENTERIC COATED) 81 mg EC tablet Take 1 tablet by mouth once daily. - metoprolol tartrate, short acting, (LOPRESSOR) 25 mg tablet Take 1 tablet by mouth two times a day. - albuterol (PROVENTIL) 2.5 mg /3 mL (0.083 %) nebulizer solution Use one vial every 4 hours as needed for wheezing/shortness of breath. Use over 5-15minutes. - albuterol HFA (PROVENTIL HFA, VENTOLIN HFA) 90 mcg/actuation inhaler Inhale 2 Puffs as instructed every 4 hours as needed for wheezing/shortness of breath. - lisinopril (ZESTRIL) 10 mg tablet Take 1 tablet by mouth once daily. - chlorthalidone (HYGROTON) 25 mg tablet Take 1 tablet by mouth once daily. - BREZTRI AEROSPHERE 160-9-4.8 mcg/actuation HFA aerosol inhaler INHALE TWO (2) PUFFS BY MOUTH TWICE DAILY INSTRUCTED Problem List As Of Date 07/08/2024 Noted Resolved EIC (epidermal inclusion cyst) [L72.0] 11/26/2019 05/17/2022 Folliculiti (more content not included)... Normal [facility] 12 Lead EKGon 05-31-2024 12 Lead EKG [facility] Cardiovascular Services [address] [place] [address] 12 Lead EKG 05/31/24 2139 MR#: [id number] Acct: [id number] Name: SHAWNA PRAJAPATI Rep #: [id number] : 1965 58 From: Rei Negron MD Attending Dr: Status: DEP ER Ordering Dr: Lance Prado DO Date: 05/31/24 Location: ED Sex: M UTD Admitted: Test Reason : DYSRHYTHMIA Blood Pressure : */* mmHG Vent. Rate : 64 BPM Atrial Rate : 64 BPM P-R Int : 168 ms QRS Dur : 90 ms QT Int : 394 ms P-R-T Axes : 75 82 50 degrees QTcB Int : 406 ms Normal sinus rhythm with sinus arrhythmia Normal ECG Confirmed by REI NEGRON MD ([id number]), international editorial producer WIN ARZATE ([id number]) on 06/01/2024 8:54:29 AM Referred By: Confirmed By: REI NEGRON MD 06/01/24 0854 Date Rei Negron MD CC: Dr. Lance Prado DO; Dr. Samir Jordan MD Signed [facility] CBC W/Diff, Automatedon 02-0 SMEAR COMMENT SCANNED Normal [facility] Comment on above: Result Comment: MONO CYTOSIS NOTED Performed By: #### L 500.4050, L100.0100, L501.4700, L500.3400, L503.6005, L501.2450 #### [facility] [address] [place], [address] CNOVon 05-31-2024 CNOV Office Visit (INTMWS ) SHAWNA PRAJAPATI ([id number]) 1965 M Date Time Provider Department 05/31/24 5:20 PM SAMIR JORDAN INTMWS During your visit today, we recorded the following information about you: Temperature Pulse Respiration Blood pressure 98.5 degrees 72/minute 24/minute 88/62 Weight 96.3 kg Samir Jordan MD 05/31/2024 6:46 PM Signed This note was created using [employer]. Subjective Patient presents with: F/U 6 months Shawna Prajapati is a 58 year old male. He complained constant sharp moderate to severe abdominal pain for one month, that woke him up from sleep at times, occasionally radiating to his ribs. There was no specific trigger or relation to oral intake. He had non bloody diarrhea this weekend, and may have developed a hemorrhoid. His abdomen was feeling distended. Other symptoms were ongoing dyspnea and cough. He was diagnosed with Covid and chest X-ray was negative then. Review of Systems Constitutional: Positive for fatigue. Negative for chills, diaphoresis and fever. HENT: Negative for congestion and sore throat. Respiratory: Positive for cough, chest tightness and shortness of breath. Cardiovascular: Negative for chest pain, palpitations and leg swelling. Gastrointestinal: Positive for abdominal distention, abdominal pain and diarrhea. Negative for blood in stool, constipation, nausea and vomiting. Genitourinary: Negative for difficulty urinating and dysuria. Neurological: Positive for light-headedness. Negative for headaches. 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 Muscle Vein of Right Lower Extremity (Hcc) Gastroesophageal Reflux Disease Without Esophagitis Delusions (Hcc) Bilateral Edema of Lower Extremity Constipation Lung Nodules History of Cigarette Smoking Social History Tobacco Use Smoking status: Former Current packs/day: 0.00 Average packs/day: 3.0 packs/day for 38.8 years (116.4 ttl pk-yrs) Types: Cigarettes Start date: 1981 Quit date: 05/02/2020 Years since quittin.0 Smokeless tobacco: Former Types: Snuff Quit date: 05/02/2020 Tobacco comments: Age 16-05/02/2019 Vaping Use Vaping status: Former Substance Use Topics Alcohol use: Not Currently Drug use: Never Current Outpatient Medications Medication Sig aspirin, enteric coated (ASPIRIN, ENTERIC COATED) 81 mg EC tablet Take 1 tablet by mouth once daily. metoprolol tartrate, short acting, (LOPRESSOR) 25 mg tablet Take 1 tablet by mouth two times a day. albuterol (PROVENTIL) 2.5 mg /3 mL (0.083 %) nebulizer solution Use one vial every 4 hours as needed for wheezing/shortness of breath. Use over 5-15minutes. albuterol HFA (PROVENTIL HFA, VENTOLIN HFA) 90 mcg/actuation inhaler Inhale 2 Puffs as instructed every 4 hours as needed for wheezing/shortness of breath. lisinopril (ZESTRIL) 10 mg tablet Take 1 tablet by mouth once daily. chlorthalidone (HYGROTON) 25 mg tablet Take 1 tablet by mouth once daily. omeprazole (PRILOSEC) 40 mg capsule Take 1 capsule by mouth once daily. BREZTRI AEROSPHERE 160-9-4.8 mcg/actuation HFA aerosol inhaler INHALE TWO (2) PUFFS BY MOUTH TWICE DAILY INSTRUCTED benzonatate (TESSALON PERLE) 100 mg capsule Take 2 capsules by mouth three times a day as needed. (Patient not taking: Reported on 05/31/2024) guaiFENesin (MUCINEX) 600 mg 12 hr tablet Take 2 tablets by mouth two times a day. (Patient not taking: Reported on 05/31/2024) cyclobenzaprine (FLEXERIL) 10 mg tablet Take 1 tablet by mouth at bedtime as needed for muscle spasm. (Patient not taking: Reported on 05/31/2024) polyethylene glycol 3350 (MIRALAX) 17 gram packet Take 1 Packet by mouth once daily. Dissolve dose in 4 - 8 ounces of liquid (Patient not taking: Reported on 05/31/2024) nystatin (MYCOSTATIN) 100,000 unit/mL suspension Take 5 mL by mouth four times daily. 1tsp swish in mouth for several minutes, then swallow (or expectorate) 4 times daily until gone. (Patient not taking: Reported on 05/31/2024) No current facility-administered medications for this visit. Objective BP 88/62 (BP Site: Left Arm, BP Position: Sitting, BP Cuff Size: Large Adult) Pulse 72 Temp 36.9 ?C (98.5 ?F) (Temporal) Resp 24 Wt 96.3 kg (212 lb 4.9 oz) SpO2 94% BMI 33.25 kg/m? Physical Exam Constitutional: General: He is not in acute distress. Appearance: He is ill-appearing. He is not diaphoretic. HENT: Nose: No congestion or rhinorrhea. Mouth/Throat: Mouth: Mucous membranes are moist. Eyes: Conjunctiva/sclera: Conjunctivae normal. Cardiovascular: Rate and Rhythm: Normal rate and regular rhyt (more content not included)... Normal [facility] CTA Abd/Pelvis W/WO Contrast on 05-31-2024 CTA Abd/Pelvis W/WO Contrast [facility] Imaging Services [address] [place] [address] CTA Abd/Pelvis W/WO Contrast MR#: [id number] Acct: [id number] Name: SHAWNA PRAJAPATI Rep #: [id number] : 1965 M 58 From: [facility] DO PCP: Dr. Samir Jordan MD Status: REG ER Study: CTA Abd/Pelvis W/WO Contrast Date of Exam: 07/20 Exam# [id number] Ordering Dr: Lance Prado DO PROCEDURE: CTA ABD/PELVIS W/WO CONTRAST REASON FOR EXAM: Abdominal pain. Hypotension. TECHNIQUE: CTA imaging of the abdomen and pelvis with intravenous contrast. 3D reconstructions. COMPARISON: CT abdomen/pelvis from 09/09/2021. FINDINGS: Abdominal aorta demonstrates normal caliber with no evidence of aneurysm or dissection. There are atherosclerotic calcifications of the abdominal aorta. Celiac artery, superior mesenteric artery, bilateral renal arteries, and inferior mesenteric artery are patent. Bilateral common iliac, internal iliac, and external iliac arteries are patent with atherosclerotic calcifications. However, there is a focal aneurysm involving the left internal iliac artery measuring 2.6 x 2.4 x 2.3 cm. Lung bases demonstrates mild emphysematous changes. Gallbladder, pancreas, biliary system, and adrenal glands are unremarkable. Liver and spleen are limited due to the phase of contrast. Bilateral kidneys enhance homogeneously without hydronephrosis or hydroureter. Bilateral renal cysts are present. Urinary bladder is smoothly contoured. There is a fat containing right inguinal hernia and suggestion of a small fat containing left inguinal hernia. Colonic diverticulosis is identified without diverticulitis. There is [id number] retained stool in the colon without obstruction. Appendix is unremarkable. Small bowel demonstrates a normal caliber. No free air or free fluid is identified. Evaluation of the osseous structures demonstrates no acute findings. Degenerative changes are present. There is grade 1 anterolisthesis of L4-L5. There are prior postsurgical changes posteriorly at L4-L5. CT/CTA Abd/Pelvis W/WO Contrast IMPRESSION: 1. 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 2. Atherosclerotic calcifications with no evidence of abdominal aortic aneurysm or dissection. 3. Colonic diverticulosis without diverticulitis. 4. Additional findings as above. One or more dose reduction techniques were used (e.g., Automated exposure control, adjustment of the mA and/or kV according to patient size, use of iterative reconstruction technique). Reading Location: [facility] CC: Dr. Lance Prado DO; Dr. Samir Jordan MD Computer Analyst Supervisor: Signed Normal [facility] [id number] 05-31-2024 ECG01 Ventricular Rate : 6 3 BPM Atrial Rate : 63 BPM P-R Interval : 158 ms QRS Duration : 90 ms Q-T Interval : 394 ms QTC Calculation(Bazett) : 403 ms Calculated P Warren : 37 degrees Calculated R Warren : 84 degrees Calculated T Warren : 59 degrees NORMAL SINUS RHYTHM NORMAL ECG Confirmed by MD SHARMA QARAB ([id number]) on 06/04/2024 9:58:45 AM NAME : SHAWNA PRAJAPATI PID : [id number] : 1965 Gender : Male Race : ORD : Procedure Date : May 31 2024 17:52:04 Edit Date : Jun 04 2024 09:58:46 Diagnosis: NORMAL SINUS RHYTHM NORMAL ECG Confirmed by MD SHARMA QARAB ([id number]) on 06/04/2024 9:58:45 AM Test Reason : Location : [facility] : [facility] Overread By : MD SHARMA QARAB Edited By : MD SHARMA QARAB Referred By : Samir Jordan Acquired by : Janneth muñoz [facility] Emergency Department Summary on 05-31-2024 Emergency Department Summary [facility] Medical Records Department [address] [place] [address] Emergency Department Summary 05/31/24 MR#: [id number] Acct: [id number] Name: SHAWNA PRAJAPATI Rep #: [id number] : 1965 58 From: [facility] PCP: Dr. Samir Jordan MD Status:DEP ER Location: ED HPI History of Present Illness Chief Complaint: Hypotension Informant: patient Narrative Narrative: Sent from PCP office for worsening abdominal pain. Patient states pain for the last month and a half. Pain in the mid abdomen. Nausea and vomiting over a week ago. He had a bowel movement this morning. Nonbloody. Inguinal hernia repairs in the past. No other abdominal surgeries. He is on Xarelto for history of paroxysmal A-fib. He had 2 stents in 2020. He is on Xarelto and aspirin. He states he is in his doctor's office today was told he was A-fib. He had worsening pain therefore was sent here. Prior similar symptoms: No PFSH PFS Medical History Homelessness Hyperlipemia HTN (hypertension) CAD (coronary artery disease) History of COPD History of [place] (myocardial infarction) Lumbar stenosis MARGARITO (obstructive sleep apnea) Asthma Myocardial infarct Home Medications ???Medication ???Instructions ???Recorded ???Last Taken ???Type albuterol sulfate 90 mcg/actuation 1 inh inhalation BID SOB 2 11/09/21 History aerosol inhaler (Ventolin HFA) lisinopril 20 mg tablet 20 mg PO DAILY bp 11/09/21 2 History aspirin 81 mg tablet,delayed 81 mg PO DAILY 04/12/22 Unknown Hi story release atorvastatin 80 mg tablet 80 mg PO QHS 04/12/22 Unknown Hist ory metoprolol tartrate 25 mg tablet 25 mg PO DAILY 04/12/22 Unknown Hi story budesonide 160 mcg-glycopyr 9 2 inh inhalation BID 02/09/23 Unkn own History mcg-formot 4.8 mcg/actuation HFA inhaler (Breztri Aerosphere) rivaroxaban 15 mg (42)-20 mg (9) 1 tab PO DAILY 02/09/23 Unknown Hi story tablets in a starter pack (Xarelto DVT-PE Treatment 30-Day Starter) sulfamethoxazole 800 1 tab PO BID #14 TABLETS 02/09/23 Unknown Rx mg-trimethoprim 160 mg tablet chlorthalidone 25 mg tablet 25 mg PO DAILY 10/20/23 Unknown Hi story Allergy/AdvReac Type Severity Reaction Status Date / Time cabbage Allergy can not Verified 10/20/23 17:12 swallow lettuce Allergy can not Verified 10/20/23 17:12 swallow onion Allergy Vomiting Verified 10/20/23 17:12 peanut Allergy Anaphylaxis Verified 10/20/23 17:12 garlic AdvReac Mild Abd Verified 10/20/23 17:12 cramps/diarrhea Family History Father No problems noted. Surgical History H/O hernia repair Stented coronary artery Social History housing: homeless other: Patient is currently living out of his car and is supposed to be on oxygen Smoking Status: Former smoker alcohol intake: never substance use type: does not use ROS ROS ED Constitutional Constitutional ED: Denies chills, fever(s) or sweats ENT ENT ED: Denies sore throat Cardiovascular Cardiovascular: Denies chest pain, leg edema, palpitations or racing heartbeat Respiratory/Chest Respiratory/Chest: Denies cough, dyspnea or dyspnea on exertion Gastrointestinal Gastrointestinal: Reports abdominal pain; Denies diarrhea, nausea or vomiting Genitourinary Genitourinary ED: Denies dysuria, hematuria or urinary frequency Musculoskeletal Musculoskeletal: Denies back pain, extremity pain or neck pain Integumentary Denies rash or wounds Neurologic Neurologic: Denies headache(s), paresthesias or weakness EXAM Physical Exam Const Vital Signs: 05/31/24 18:25 Temperature 97.4 F L Temperature Source Temporal Pulse Rate 95 Respiratory Rate 16 Blood Pressure 112/80 Blood Pressure Mean 90 Pulse Ox 69 Oxygen Delivery Method Room Air Positive well nourished and well developed General Appearance ED: well developed and NAD HEENT Reports moist mucous membranes normocephalic and atraumatic Eyes General Eye ED: Yes normal appearance of both eyes Neck full ROM Chest Wall Chest: Negative for tenderness Resp normal respiratory effort and normal air movement Effort and Inspection: symmetric chest movement; Negative for respiratory distress Cardio regular rate, regular rhythm and no murmurs Peripheral Pulses: pulses 2+ throughout GI GI Narrative: Distended tender mid abdomen. Negative De Santiago's or McBurney's tenderness. Palpation: Negative for guarding or rebound tenderness present Extremity normal to inspection General Extremety ED: Negative for edema or tenderness General Extremity: Negative for edema (more content not included)... Normal [facility] Lactic Acidon 05-31-2024 Lactate [Moles/Vol] 0.7 mmol/L Normal 0.4-1.9 [facility] Comment on above: Order Comment: Y Performed By: #### L 500.4050, L100.0100, L501.4700, L500.3400, L503.6005, L501.2450 #### [facility] [address] [place], [address] Lipaseon 05-31-2024 Lipase [Catalytic activity/Vol] 34 U/L Normal 13-75 [facility] Comment on above: Result Comment: Lissette castrejon note: LIPASE revised reference range effective 22. New Lipase methodology. Expected to produce lower values than the previous assay method. NEW Reference Range: 13 - 75 U/L Performed By: #### L 500.4050, L100.0100, L501.4700, L500.3400, L503.6005, L501.2450 #### [facility] [address] [place], [address] Liver Profileon 05-31-2024 Albumin [Mass/Vol] 3.2 g/dL Normal 3.2-5.0 [facility] Comment on above: Performed By: #### L 500.4050, L100.0100, L501.4700, L500.3400, L503.6005, L501.2450 #### [facility] [address] [place], [address] ALK P 104 U/L Normal 45-117 [facility] Comment on above: Performed By: #### L 500.4050, L100.0100, L501.4700, L500.3400, L503.6005, L501.2450 #### [facility] [address] [place], [address] ALT [Catalytic activity/Vol] 15 U/L Low 16-61 [facility] Comment on above: Performed By: #### L 500.4050, L100.0100, L501.4700, L500.3400, L503.6005, L501.2450 #### [facility] [address] [place], [address] AST [Catalytic activity/Vol] 10 U/L Low 15-37 [facility] Comment on above: Performed By: #### L 500.4050, L100.0100, L501.4700, L500.3400, L503.6005, L501.2450 #### [facility] [address] [place], [address] Bilirubin [Mass/Vol] 0.30 mg/dL Normal 0.20-1.00 [facility] Comment on above: Result Comment: For patients on eltrombopag therapy, use of Dimension [place] TBIL is not recommended. Performed By: #### L 500.4050, L100.0100, L501.4700, L500.3400, L503.6005, L501.2450 #### [facility] [address] [place], [address] Bilirubin.direct [Mass/Vol] 0.10 mg/dL Normal 0.00-0.30 [facility] Comment on above: Performed By: #### L 500.4050, L100.0100, L501.4700, L500.3400, L503.6005, L501.2450 #### [facility] [address] [place], [address] Globulin (S) [Mass/Vol] 3.7 g/dL Normal 2.2-4.2 [facility] Comment on above: Performed By: #### L 500.4050, L100.0100, L501.4700, L500.3400, L503.6005, L501.2450 #### [facility] [address] [place], [address] T PROT 6.9 g/dL Normal 6.4-8.2 [facility] Comment on above: Performed By: #### L 500.4050, L100.0100, L501.4700, L500.3400, L503.6005, L501.2450 #### [facility] [address] [place], [address] Neelima 04-26-2024 [place] Telephone ([facility]) PRAJAPATISHAWNA REYNA ([id number]) 1965 M Date Time Provider Department 04/26/24 LENNY QUIÑONES [facility] During your visit today, we recorded the following information about you: Lenny Quiñones MD 04/26/2024 7:43 AM Signed COVID test was positive. Stay home until symptoms are improving and fever free for 24 hours without taking fever reducing medication. You can reduce spread of COVID by wearing a mask around others for 5 additional days. Treat with supportive care such as cough medicine, cold medicine, and pain relievers. Follow up with worsening symptoms; in the ER if severe. Alee Ruiz MA 04/26/2024 7:46 AM Signed Pt was notified of the results. Pt verbalized understanding. Alee Ruiz MA Allergies As of Date: 04/26/2024 Noted Allergy Reaction CABBAGE 11/09/2021 14 - Other: See Comments Comments: dysphagia LETTUCE 11/09/2021 14 - Other: See Comments Comments: dysphagia ONION EXTRACT 11/09/2021 11 - Vomiting GARLIC OIL 07/02/2022 8 - GI Upset Date Reviewed: 04/25/2024 Reviewed by: Shantelle Qureshi APRN.ASSISTANT TODDLER TEACHER - Fully Assessed Reason for Visit: Results [95] Cmt: COVID+ Prescriptions as of 04/26/2024 - predniSONE (DELTASONE) 20 mg tablet Take 2 tablets by mouth once daily for 5 days. - benzonatate (TESSALON PERLE) 100 mg capsule Take 2 capsules by mouth three times a day as needed. - guaiFENesin (MUCINEX) 600 mg 12 hr tablet Take 2 tablets by mouth two times a day. - cyclobenzaprine (FLEXERIL) 10 mg tablet Take 1 tablet by mouth at bedtime as needed for muscle spasm. - aspirin, enteric coated (ASPIRIN, ENTERIC COATED) 81 mg EC tablet Take 1 tablet by mouth once daily. - metoprolol tartrate, short acting, (LOPRESSOR) 25 mg tablet Take 1 tablet by mouth two times a day. - albuterol (PROVENTIL) 2.5 mg /3 mL (0.083 %) nebulizer solution Use one vial every 4 hours as needed for wheezing/shortness of breath. Use over 5-15minutes. - albuterol HFA (PROVENTIL HFA, VENTOLIN HFA) 90 mcg/actuation inhaler Inhale 2 Puffs as instructed every 4 hours as needed for wheezing/shortness of breath. - lisinopril (ZESTRIL) 10 mg tablet Take 1 tablet by mouth once daily. - chlorthalidone (HYGROTON) 25 mg tablet Take 1 tablet by mouth once daily. - omeprazole (PRILOSEC) 40 mg capsule Take 1 capsule by mouth once daily. - polyethylene glycol 3350 (MIRALAX) 17 gram packet Take 1 Packet by mouth once daily. Dissolve dose in 4 - 8 ounces of liquid - rivaroxaban (XARELTO) 20 mg tablet Take 1 tablet by mouth daily with dinner. - nystatin (MYCOSTATIN) 100,000 unit/mL suspension Take 5 mL by mouth four times daily. 1tsp swish in mouth for several minutes, then swallow (or expectorate) 4 times daily until gone. - BREZTRI AEROSPHERE 160-9-4.8 mcg/actuation HFA aerosol inhaler INHALE TWO (2) PUFFS BY MOUTH TWICE DAILY INSTRUCTED Problem List As Of Date 04/26/2024 Noted Resolved EIC (epidermal inclusion cyst) [L72.0] 11/26/2019 05/17/2022 Folliculitis [L73.9] 11/26/2019 05/17/2022 Seborrheic dermatitis [L21.9] 11/26/2019 Asthma [J45.909] 1990 COPD (chronic obstructive pulmonary disease) (H*2021 MARGARITO on CPAP [G47.33] 2012 Hyperlipidemia [E78.5] 07/17/2021 Hypertension [I10] 07/17/2021 Coronary artery disease involving pechanga heart *08/15/2022 Obesity, Class I, BMI 30-34.9 [E66.811] 12/26/2022 Homelessness [Z59.00] 12/26/2022 Chronic deep vein thrombosis (DVT) of calf musc*03/27/2023 Gastroesophageal reflux disease without esophag*03/27/2023 Delusions (HCC) [F22] 03/28/2023 Bilateral edema of lower extremity [R60.0] 07/17/2023 Constipation [K59.00] 11/26/2023 Encounter Status:Closed by ALEE RUIZ on 04/26/24 [facility] CNOVon 04-25-2024 CNOV Office Visit (UCWSTR ) SHAWNA PRAJAPATI ([id number]) 1965 M Date Time Provider Department 04/25/24 10:15 AM SHANTELLE QURESHI [facility] During your visit today, we recorded the following information about you: Temperature Pulse Respiration Blood pressure 98.4 degrees 79/minute 20/minute 82/60 Weight 88.3 kg Shantelle Qureshi APRN.ASSISTANT TODDLER TEACHER 04/25/2024 11:11 AM Signed Subjective The history is provided by the patient. No batch trucker was used. HPI Shawna Prajapati is a 58 year old male who presents today for CC of cough, congestion, short of breath, fever that started 12.26. He has used no treatment or medications.. He got flu/covid vaccine Friday . H/o asthma, copd BP 82/60 Pulse 79 Temp 36.9 ?C (98.4 ?F) (Right Tympanic) Resp 20 Wt 88.3 kg (194 lb 10.7 oz) SpO2 96% BMI 30.49 kg/m? Social History Tobacco Use Smoking status: Former Current packs/day: 0.00 Average packs/day: 3.0 packs/day for 38.8 years (116.4 ttl pk-yrs) Types: Cigarettes Start date: 1981 Quit date: 05/02/2020 Years since quittin.9 Smokeless tobacco: Former Types: Snuff Quit date: 05/02/2020 Tobacco comments: Age 16-05/02/2019 Vaping Use Vaping status: Former Substance Use Topics Alcohol use: Not Currently Drug use: Never PAST MEDICAL HISTORY Diagnosis Date Asthma 1990 Chronic deep vein thrombosis (DVT) of calf muscle vein of right lower extremity ([facility]) 03/27/2023 COPD (chronic obstructive pulmonary disease) ([facility]) 2021 Coronary artery disease COVID-19 07/05/2021 EIC (epidermal inclusion cyst) 11/26/2019 Fibromyalgia 10/28/2016 Folliculitis 11/26/2019 GERD (gastroesophageal reflux disease) 01/27/2019 Hyperlipidemia 07/17/2021 Hypertension 07/17/2021 Inguinal hernia Irregular heartbeat NSTEMI (non-ST elevation myocardial infarction) ([facility]) 05/03/2020 [facility] [place], [place] MARGARITO on CPAP 2012 with nocturnal O2. Pancreatitis, chronic ([facility]) 09/07/2019 Seborrheic dermatitis 11/26/2019 Shingles outbreak 09/12/2021 Spinal stenosis, lumbar region with neurogenic claudication 11/20/2015 I have confirmed and edited as necessary, the [facility] Review of Systems Constitutional: Positive for chills, fever and malaise/fatigue. HENT: Positive for congestion and sinus pain. Negative for ear pain and sore throat. Respiratory: Positive for cough and shortness of breath. Negative for sputum production and wheezing. Cardiovascular: Negative for chest pain. Gastrointestinal: Negative for abdominal pain, diarrhea, nausea and vomiting. Musculoskeletal: Negative for myalgias. Neurological: Negative for headaches. Objective Physical Exam Vitals and nursing note reviewed. Constitutional: Appearance: He is not toxic-appearing. HENT: Head: Normocephalic and atraumatic. Right Ear: Tympanic membrane, ear canal and external ear normal. Left Ear: Tympanic membrane, ear canal and external ear normal. Nose: Mucosal edema, congestion and rhinorrhea present. Right Sinus: No maxillary sinus tenderness or frontal sinus tenderness. Left Sinus: No maxillary sinus tenderness or frontal sinus tenderness. Mouth/Throat: Pharynx: Uvula midline. Posterior oropharyngeal erythema present. No oropharyngeal exudate. Tonsils: No tonsillar abscesses. Cardiovascular: Rate and Rhythm: Normal rate and regular rhythm. Heart sounds: Normal heart sounds. Pulmonary: Effort: Pulmonary effort is normal. Breath sounds: Normal breath sounds. No decreased breath sounds, wheezing, rhonchi or rales. Lymphadenopathy: Head: Right side of head: No submental, submandibular, tonsillar or preauricular adenopathy. Left side of head: No submental, submandibular, tonsillar or preauricular adenopathy. Cervical: No cervical adenopathy. Right cervical: No superficial cervical adenopathy. Left cervical: No superficial cervical adenopathy. Neurological: Mental Status: He is alert. ASSESSMENT/PLAN: 1. URI with cough and congestion - ICD9: 465.9, ICD10: J06.9 - Discussed viral etiology and rationale for treatment. - Symptomatic treatment with prn analgesia - Supportive care with fluids and rest - The patient may also use OTC cough and cold meds as needed and warm salt water gargles, throat lozenges and/or OTC throat spray as needed. - Follow up in one week if symptoms persist or sooner if worsening of symptoms - COVID AND INFLUENZA A/B AND RSV PCR, ROUTINE Prednisone, tessalon perls, mucinex Diagnosis and treatment plan were discussed and questions were answered to the patient's satisfaction. Pt acknowledged understanding of concepts and follow up plan. Specific signs and symptoms that would indicate the need for higher level of care were discussed in detail warranting prompt ER evaluation. Shantelle Qureshi APRN.Shantelle Marie APRN.[place] 04/25/2024 11:11 AM Signed covid and influenza test ordered You (more content not included)... Normal [facility] COVID AND INFLUENZA A/B AND RSV PCR, ROUTINEon 04-25-2024 SARS-CoV-2 (COVID-19) RNA STEPHEN+probe Ql (Unsp spec) SARS-COV-2 (AGENT OF COVID-19) RNA: Detected INFLUENZA A RNA: Not detected INFLUENZA B RNA: Not detected RESPIRATORY SYNCYTIAL VIRUS (RSV) RNA: Not detected Abnormal [facility] Comment on above: Performed By: #### C VFLRS ####[facility] LABCLIA [id number] [place] [address] [place] Neelima 04-15-2024 RAFAEL Telephone (INTMWS) VICTORINASHAWNA Ochoa ([id number]) 1965 M Date Time Provider Department 04/15/24 SAMIR JORDNA During your visit today, we recorded the following information about you: Promise Bernal LPN 04/15/2024 4:29 PM Signed ----- Message from Samir Jordan MD sent at 04/15/2024 4:19 PM EST ----- chest X-ray with no acute disease. Promise Bernal LPN 04/15/2024 4:31 PM Signed Patient notified, verbalized understanding. Promise Bernal LPN Allergies As of Date: 04/15/2024 Noted Allergy Reaction CABBAGE 11/09/2021 14 - Other: See Comments Comments: dysphagia LETTUCE 11/09/2021 14 - Other: See Comments Comments: dysphagia ONION EXTRACT 11/09/2021 11 - Vomiting GARLIC OIL 07/02/2022 8 - GI Upset Date Reviewed: 04/14/2024 Reviewed by: Promise Bernal LPN - Fully Assessed Reason for Visit: Results [95] Prescriptions as of 04/15/2024 - cyclobenzaprine (FLEXERIL) 10 mg tablet Take 1 tablet by mouth at bedtime as needed for muscle spasm. - aspirin, enteric coated (ASPIRIN, ENTERIC COATED) 81 mg EC tablet Take 1 tablet by mouth once daily. - metoprolol tartrate, short acting, (LOPRESSOR) 25 mg tablet Take 1 tablet by mouth two times a day. - albuterol (PROVENTIL) 2.5 mg /3 mL (0.083 %) nebulizer solution Use one vial every 4 hours as needed for wheezing/shortness of breath. Use over 5-15minutes. - albuterol HFA (PROVENTIL HFA, VENTOLIN HFA) 90 mcg/actuation inhaler Inhale 2 Puffs as instructed every 4 hours as needed for wheezing/shortness of breath. - lisinopril (ZESTRIL) 10 mg tablet Take 1 tablet by mouth once daily. - chlorthalidone (HYGROTON) 25 mg tablet Take 1 tablet by mouth once daily. - omeprazole (PRILOSEC) 40 mg capsule Take 1 capsule by mouth once daily. - polyethylene glycol 3350 (MIRALAX) 17 gram packet Take 1 Packet by mouth once daily. Dissolve dose in 4 - 8 ounces of liquid - rivaroxaban (XARELTO) 20 mg tablet Take 1 tablet by mouth daily with dinner. - nystatin (MYCOSTATIN) 100,000 unit/mL suspension Take 5 mL by mouth four times daily. 1tsp swish in mouth for several minutes, then swallow (or expectorate) 4 times daily until gone. - BREZTRI AEROSPHERE 160-9-4.8 mcg/actuation HFA aerosol inhaler INHALE TWO (2) PUFFS BY MOUTH TWICE DAILY INSTRUCTED Problem List As Of Date 04/15/2024 Noted Resolved EIC (epidermal inclusion cyst) [L72.0] 11/26/2019 05/17/2022 Folliculitis [L73.9] 11/26/2019 05/17/2022 Seborrheic dermatitis [L21.9] 11/26/2019 Asthma [J45.909] 1990 COPD (chronic obstructive pulmonary disease) (H*2021 MARGARITO on CPAP [G47.33] 2012 Hyperlipidemia [E78.5] 07/17/2021 Hypertension [I10] 07/17/2021 Coronary artery disease involving pechanga heart *08/15/2022 Obesity, Class I, BMI 30-34.9 [E66.811] 12/26/2022 Homelessness [Z59.00] 12/26/2022 Chronic deep vein thrombosis (DVT) of calf musc*03/27/2023 Gastroesophageal reflux disease without esophag*03/27/2023 Delusions (HCC) [F22] 03/28/2023 Bilateral edema of lower extremity [R60.0] 07/17/2023 Constipation [K59.00] 11/26/2023 Encounter Status:Closed by PROMISE BERNAL on 04/15/24 [facility] Telephone (INTMWS) VICTORINASHAWNA ([id number]) 1965 M Date Time Provider Department 04/15/24 SAMIR JORDAN During your visit today, we recorded the following information about you: Promise Bernal LPN 04/15/2024 4:32 PM Signed ----- Message from Samir Jordan MD sent at 04/15/2024 4:23 PM EST ----- Most labs are okay. Kidney function is down. Stress hydration. Repeat non fasting blood work in 3 weeks, before follow up appointment. Promise Bernal LPN 04/15/2024 4:33 PM Signed Patient notified of below results/recommendation s, verbalized understanding. Promise Bernal LPN Allergies As of Date: 04/15/2024 Noted Allergy Reaction CABBAGE 11/09/2021 14 - Other: See Comments Comments: dysphagia LETTUCE 11/09/2021 14 - Other: See Comments Comments: dysphagia ONION EXTRACT 11/09/2021 11 - Vomiting GARLIC OIL 07/02/2022 8 - GI Upset Date Reviewed: 04/14/2024 Reviewed by: Promise Bernal LPN - Fully Assessed Reason for Visit: Results [95] Prescriptions as of 04/15/2024 - cyclobenzaprine (FLEXERIL) 10 mg tablet Take 1 tablet by mouth at bedtime as needed for muscle spasm. - aspirin, enteric coated (ASPIRIN, ENTERIC COATED) 81 mg EC tablet Take 1 tablet by mouth once daily. - metoprolol tartrate, short acting, (LOPRESSOR) 25 mg tablet Take 1 tablet by mouth two times a day. - albuterol (PROVENTIL) 2.5 mg /3 mL (0.083 %) nebulizer solution Use one vial every 4 hours as needed for wheezing/shortness of breath. Use over 5-15minutes. - albuterol HFA (PROVENTIL HFA, VENTOLIN HFA) 90 mcg/actuation inhaler Inhale 2 Puffs as instructed every 4 hours as needed for wheezing/shortness of breath. - lisinopril (ZESTRIL) 10 mg tablet Take 1 tablet by mouth once daily. - chlorthalidone (HYGROTON) 25 mg tablet Take 1 tablet by mouth once daily. - omeprazole (PRILOSEC) 40 mg capsule Take 1 capsule by mouth once daily. - polyethylene glycol 3350 (MIRALAX) 17 gram packet Take 1 Packet by mouth once daily. Dissolve dose in 4 - 8 ounces of liquid - rivaroxaban (XARELTO) 20 mg tablet Take 1 tablet by mouth daily with dinner. - nystatin (MYCOSTATIN) 100,000 unit/mL suspension Take 5 mL by mouth four times daily. 1tsp swish in mouth for several minutes, then swallow (or expectorate) 4 times daily until gone. - BREZTRI AEROSPHERE 160-9-4.8 mcg/actuation HFA aerosol inhaler INHALE TWO (2) PUFFS BY MOUTH TWICE DAILY INSTRUCTED Problem List As Of Date 04/15/2024 Noted Resolved EIC (epidermal inclusion cyst) [L72.0] 11/26/2019 05/17/2022 Folliculitis [L73.9] 11/26/2019 05/17/2022 Seborrheic dermatitis [L21.9] 11/26/2019 Asthma [J45.909] 1990 COPD (chronic obstructive pulmonary disease) (H*2021 MARGARITO on CPAP [G47.33] 2012 Hyperlipidemia [E78.5] 07/17/2021 Hypertension [I10] 07/17/2021 Coronary artery disease involving pechanga heart *08/15/2022 Obesity, Class I, BMI 30-34.9 [E66.811] 12/26/2022 Homelessness [Z59.00] 12/26/2022 Chronic deep vein thrombosis (DVT) of calf musc*03/27/2023 Gastroesophageal reflux disease without esophag*03/27/2023 Delusions (HCC) [F22] 03/28/2023 Bilateral edema of lower extremity [R60.0] 07/17/2023 Constipation [K59.00] 11/26/2023 Encounter Status:Closed by PROMISE BERNAL on 04/15/24 [facility]INTM[facility] ) SHAWNA PRAJAPATI ([id number]) 1965 M Date Time Provider Department 04/14/24 1:00 PM SAMIR JORDAN INTMWS During your visit today, we recorded the following information about you: Temperature Pulse Respiration Blood pressure 98 degrees 68/minute 18/minute 102/62 Weight 90 kg Samir Jordan MD 04/14/2024 1:51 PM Signed This note was created using [employer]. Subjective Shawna Prajapati is a 58 year old male. He had moved to a new care home one week ago, and started having progressive leg cramps at night from laying down flat. Cramps started from both hips, radiating down the legs and feet. Symptoms have worsened and now woke him up. This was also now affecting his gait. He was also more short of breath the past month of so. He was taking all his medications. Review of Systems Constitutional: Negative for chills, diaphoresis, fatigue, fever and unexpected weight change. HENT: Negative. Respiratory: Positive for cough and shortness of breath. Negative for chest tightness. Cardiovascular: Negative for chest pain, palpitations and leg swelling. Gastrointestinal: Negative for diarrhea, nausea and vomiting. Neurological: Positive for numbness. Negative for weakness. 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 Muscle Vein of Right Lower Extremity (Hcc) Gastroesophageal Reflux Disease Without Esophagitis Delusions (Hcc) Bilateral Edema of Lower Extremity Constipation Social History Tobacco Use Smoking status: Former Current packs/day: 0.00 Average packs/day: 3.0 packs/day for 38.8 years (116.4 ttl pk-yrs) Types: Cigarettes Start date: 1981 Quit date: 05/02/2020 Years since quittin.9 Smokeless tobacco: Former Types: Snuff Quit date: 05/02/2020 Tobacco comments: Age 16-05/02/2019 Vaping Use Vaping status: Former Substance Use Topics Alcohol use: Not Currently Drug use: Never Current Outpatient Medications Medication Sig aspirin, enteric coated (ASPIRIN, ENTERIC COATED) 81 mg EC tablet Take 1 tablet by mouth once daily. metoprolol tartrate, short acting, (LOPRESSOR) 25 mg tablet Take 1 tablet by mouth two times a day. albuterol (PROVENTIL) 2.5 mg /3 mL (0.083 %) nebulizer solution Use one vial every 4 hours as needed for wheezing/shortness of breath. Use over 5-15minutes. albuterol HFA (PROVENTIL HFA, VENTOLIN HFA) 90 mcg/actuation inhaler Inhale 2 Puffs as instructed every 4 hours as needed for wheezing/shortness of breath. lisinopril (ZESTRIL) 10 mg tablet Take 1 tablet by mouth once daily. chlorthalidone (HYGROTON) 25 mg tablet Take 1 tablet by mouth once daily. omeprazole (PRILOSEC) 40 mg capsule Take 1 capsule by mouth once daily. polyethylene glycol 3350 (MIRALAX) 17 gram packet Take 1 Packet by mouth once daily. Dissolve dose in 4 - 8 ounces of liquid rivaroxaban (XARELTO) 20 mg tablet Take 1 tablet by mouth daily with dinner. nystatin (MYCOSTATIN) 100,000 unit/mL suspension Take 5 mL by mouth four times daily. 1tsp swish in mouth for several minutes, then swallow (or expectorate) 4 times daily until gone. BREZTRI AEROSPHERE 160-9-4.8 mcg/actuation HFA aerosol inhaler INHALE TWO (2) PUFFS BY MOUTH TWICE DAILY INSTRUCTED No current facility-administered medications for this visit. Objective BP 102/62 (BP Site: Right Arm, BP Position: Sitting, BP Cuff Size: Large Adult) Pulse 68 Temp 36.7 ?C (98 ?F) (Temporal) Resp 18 Wt 90 kg (198 lb 6.6 oz) BMI 31.08 kg/m? Physical Exam Constitutional: General: He is not in acute distress. Appearance: He is not ill-appearing or diaphoretic. HENT: Head: Normocephalic. Cardiovascular: Rate and Rhythm: Normal rate and regular rhythm. Pulses: Normal pulses. Heart sounds: S1 normal and S2 normal. No murmur heard. No gallop. Pulmonary: Effort: No respiratory distress. Breath sounds: Decreased breath sounds present. No wheezing, rhonchi or rales. Musculoskeletal: Lumbar back: No deformity, spasms or tenderness. Negative right straight leg raise test and negative left straight leg raise test. Right hip: Normal. Left hip: Normal. Right knee: Normal. Left knee: Normal. Right lower leg: No edema. Left lower leg: No edema. Skin: Capillary Refill: Capillary refill takes less than 2 seconds. Neurological: Mental Status: He is alert. Sensory: No sensory deficit. Motor: No weakness. Gait: Gait abnormal. Comments: Ambulating with a walking stick. Assessment and Plan. 1. Bilateral leg cramps - ICD9: 729.82, ICD10: R25.2 (primary diagnosis) Discussed medication dosage, usage, (more content not included)... Normal [facility] Comprehensive metabolic 2000 panelon 04-14-2024 Albumin [Mass/Vol] 3.8 g/dL Low 3.9-4.9 [facility] Comment on above: Order Comment: Speci men Type: BLOOD SPECIMENOrdering Facility: Address: [address] [place] [address] Performed By: #### 1 9123-9, ####[facility] LABCLIA [id number] [place] [address] [place] ALP [Catalytic activity/Vol] 108 U/L Normal 38-113 [facility] Comment on above: Order Comment: Speci men Type: BLOOD SPECIMENOrdering Facility: Address: [address] [place] [address] Performed By: #### 1 9123-9, ####[facility] LABCLIA [id number] [place] [address] [place] ALT [Catalytic activity/Vol] 12 U/L Normal 10-54 [facility] Comment on above: Order Comment: Speci men Type: BLOOD SPECIMENOrdering Facility: Address: [address] [place] [address] Performed By: #### 1 9123-9, 53359-3 ####[facility] LABCLIA [id number] [place] [address] [place] Anion gap [Moles/Vol] 11 mmol/L Normal 8-15 [facility] Comment on above: Order Comment: Speci men Type: BLOOD SPECIMENOrdering Facility: Address: [address] [place] [address] Performed By: #### 1 9123-9, 97218-5 ####[facility] LABCLIA [id number] [place] [address] [place] AST [Catalytic activity/Vol] 20 U/L Normal 14-40 [facility] Comment on above: Order Comment: Speci men Type: BLOOD SPECIMENOrdering Facility: Address: [address] [place] [address] Performed By: #### 1 9123-9, 74509-2 ####[facility] LABCLIA [id number] [place] [address] [place] Bilirubin [Mass/Vol] 0.4 mg/dL Normal 0.2-1.3 [facility] Comment on above: Order Comment: Speci men Type: BLOOD SPECIMENOrdering Facility: Address: [address] [place] [address] Performed By: #### 1 9123-9, 35746-0 ####[facility] LABCLIA [id number] [place] [address] [place] Calcium [Mass/Vol] 9.4 mg/dL Normal 8.5-10.2 [facility] Comment on above: Order Comment: Speci men Type: BLOOD SPECIMENOrdering Facility: Address: [address] [place] [address] Performed By: #### 1 9123-9, 50894-0 ####[facility] LABCLIA [id number] [place] [id number] [place] Chloride [Moles/Vol] 103 mmol/L Normal 98-107 [facility] Comment on above: Order Comment: Speci men Type: BLOOD SPECIMENOrdering Facility: Address: [address] [place] [address] Performed By: #### 1 9123-9, 54712-1 ####[facility] LABCLIA [id number] [place] [address] [place] CO2 [Moles/Vol] 25 mmol/L Normal 22-30 [facility] Comment on above: Order Comment: Speci men Type: BLOOD SPECIMENOrdering Facility: Address: [address] [place] [address] Performed By: #### 1 9123-9, 36487-4 ####[facility] LABCLIA [id number] [place] [address] [place] Creatinine [Mass/Vol] 1.39 mg/dL High 0.73-1.22 [facility] Comment on above: Order Comment: Speci men Type: BLOOD SPECIMENOrdering Facility: Address: [address] [place] [address] Performed By: #### 1 9123-9, 90145-7 ####[facility] LABCLIA [id number] [place] [address] [place] Creatinine and Glomerular filtration rate.predicted panel (S/P/Bld) 58 mL/min/1.73m??? Low >=60 [facility] Comment on above: Order Comment: Speci men Type: BLOOD SPECIMENOrdering Facility: Address: [address] [place] [address] Result Comment: Delaney mated Glomerular Filtration Rate (eGFR) is calculated using the 2020 CKD-EPI creatinine equation. This equation utilizes serum creatinine, sex, and age as parameters. The creatinine assay has traceable calibration to isotope dilution-mass spectrometry. Refer to KDIGO guidelines for clinical interpretation. In patients with unstable renal function, e.g. those with acute kidney injury, the eGFR may not accurately reflect actual GFR. Performed By: #### 1 9123-9, 08288-8 ####[facility] LABCLIA [id number] [address] [address] [place] Glucose [Mass/Vol] 88 mg/dL Normal 74-99 [facility] Comment on above: Order Comment: Speci men Type: BLOOD SPECIMENOrdering Facility: Address: [address] [place] [address] Result Comment: The [place] Diabetes Association (ADA) provides guidance for cutoff values for fasting glucose and random glucose. The ADA defines fasting as no caloric intake for at least 8 hours. Fasting plasma glucose results between 100 to 125 mg/dL indicate increased risk for diabetes (prediabetes). Fasting plasma glucose results greater than or equal to 126 mg/dL meet the criteria for diagnosis of diabetes. In the absence of unequivocal hyperglycemia, results should be confirmed by repeat testing. In a patient with classic symptoms of hyperglycemia or hyperglycemic crisis, random plasma glucose results greater than or equal to 200 mg/dL meet the criteria for diagnosis of diabetes. Reference: Standards of Medical Care in Diabetes 2016, [place] Diabetes Association. Diabetes Care. 2016.39(Suppl 1). Performed By: #### 1 9123-9, 52272-7 ####[facility] LABCLIA [id number] [place] [address] [place] Potassium [Moles/Vol] 4.6 mmol/L Normal 3.7-5.1 [facility] Comment on above: Order Comment: Speci men Type: BLOOD SPECIMENOrdering Facility: Address: [address] [place] [id number] Performed By: #### 1 9123-9, 69551-7 ####[facility] LABIA [id number] [place] [address] [place] Protein [Mass/Vol] 6.8 g/dL Normal 6.3-8.0 [facility] Comment on above: Order Comment: Speci men Type: BLOOD SPECIMENOrdering Facility: Address: [address] [place] [address] Performed By: #### 1 9123-9, 68862-6 ####[facility] LABCLIA [id number] [place] [address] [place] Sodium [Moles/Vol] 139 mmol/L Normal 136-144 [facility] Comment on above: Order Comment: Speci men Type: BLOOD SPECIMENOrdering Facility: Address: [address] [place] [address] Performed By: #### 1 9123-9, 86777-9 ####[facility] LABCLIA [id number] [place] [address] [place] Urea nitrogen [Mass/Vol] 30 mg/dL High 9-24 [facility] Comment on above: Order Comment: Speci men Type: BLOOD SPECIMENOrdering Facility: Address: [address] [place] [address] Performed By: #### 1 9123-9, 95829-5 ####[facility] LABCLIA [id number] [place] [address] [place] Magnesium SerPl-mCncon 04-14 Magnesium [Mass/Vol] 2.0 mg/dL Normal 1.7-2.3 [facility] Comment on above: Order Comment: Speci men Type: BLOOD SPECIMENOrdering Facility: Address: [address] [place] [address] Performed By: #### 1 9123-9, 77374-7 ####[facility] LABCLIA [id number] [place] [id number] [place] XR CHEST 2V FRONTAL/LATon XR CHEST 2V FRONTAL/LAT * * *Final Repor t* * * DATE OF EXAM: Apr 14 2024 2:25PM WOX 5291 - XR CHEST 2V FRONTAL/LAT / PROCEDURE REASON: Chronic obstructive pulmonary disease with acute exacerbation (HCC) * * * * Physician Interpretation * * * * EXAMINATION: CHEST RADIOGRAPH (2 VIEW FRONTAL and LATERAL) CLINICAL HISTORY: Chronic obstructive pulmonary disease with acute exacerbation (HCC) MQ: XC2_6 EXAM DATE/TIME: 04/14/2024 2:25 PM COMPARISON: Chest x-ray on 10/13/2023 RESULT: Lines, tubes, and devices: None. Lungs and pleura: No consolidation. No lung mass. There are mild reticulations in the right upper lung, probably unchanged. There is biapical scarring, with subpleural opacities, unchanged. No pleural effusion. No pneumothorax. Cardiomediastinal silhouette: Normal cardiomediastinal silhouette. Bones and soft tissues: The spine shows degenerative changes. IMPRESSION: No acute radiographic abnormality. Computer Analyst Supervisor: [facility] Transcribe Date/Time: Apr 14 2024 2:45P Dictated by : JESS FELICIANO MD This examination was interpreted and the report reviewed and electronically signed by: JESS FELICIANO MD on Apr 14 2024 2:46PM EST [id number] Normal [facility] XR Chest PA and Lateralon IMPRESSION: No acute radiographic abnormality. Computer Analyst Supervisor: [facility] Transcribe Date/Time: Apr 14 2024 2:45P Dictated by : JESS FELICIANO MD This examination was interpreted and the report reviewed and electronically signed by: JESS FELICIANO MD on Apr 14 2024 2:46PM EST DIVISION OF RADIOLOGY * * *Final Report* * * DATE OF EXAM: Apr 14 2024 2:25PM WOX 5291 - XR CHEST 2V FRONTAL/LAT / PROCEDURE REASON: Chronic obstructive pulmonary disease with acute exacerbation (HCC) * * * * Physician Interpretation * * * * EXAMINATION: CHEST RADIOGRAPH (2 VIEW FRONTAL & LATERAL) CLINICAL HISTORY: Chronic obstructive pulmonary disease with acute exacerbation (HCC) MQ: XC2_6 EXAM DATE/TIME: 04/14/2024 2:25 PM COMPARISON: Chest x-ray on 10/13/2023 RESULT: Lines, tubes, and devices: None. Lungs and pleura: No consolidation. No lung mass. There are mild reticulations in the right upper lung, probably unchanged. There is biapical scarring, with subpleural opacities, unchanged. No pleural effusion. No pneumothorax. Cardiomediastinal silhouette: Normal cardiomediastinal silhouette. Bones and soft tissues: The spine shows degenerative changes. DIVISION OF RADIOLOGY Provider, Eloise Candler [facility] - 04/14/2024 * * *Final Report* * * DATE OF EXAM: Apr 14 2024 2:25PM WOX 5291 - XR CHEST 2V FRONTAL/LAT / PROCEDURE REASON: Chronic obstructive pulmonary disease with acute exacerbation (HCC) * * * * Physician Interpretation * * * * EXAMINATION: CHEST RADIOGRAPH (2 VIEW FRONTAL & LATERAL) CLINICAL HISTORY: Chronic obstructive pulmonary disease with acute exacerbation (HCC) MQ: XC2_6 EXAM DATE/TIME: 04/14/2024 2:25 PM COMPARISON: Chest x-ray on 10/13/2023 RESULT: Lines, tubes, and devices: None. Lungs and pleura: No consolidation. No lung mass. There are mild reticulations in the right upper lung, probably unchanged. There is biapical scarring, with subpleural opacities, unchanged. No pleural effusion. No pneumothorax. Cardiomediastinal silhouette: Normal cardiomediastinal silhouette. Bones and soft tissues: The spine shows degenerative changes. IMPRESSION IMPRESSION: No acute radiographic abnormality. Computer Analyst Supervisor: [facility] Transcribe Date/Time: Apr 14 2024 2:45P Dictated by : JESS FELICIANO MD This examination was interpreted and the report reviewed and electronically signed by: JESS FELICIANO MD on Apr 14 2024 2:46PM EST [facility] Radiology Study observation (narrative) Raquel vaughan [facility] XR Chest PA and LateralOrder ed By: [facility] Provider on 04-14-2024 [facility] CBC W/Diff, Automatedon 09-27 PATH REV Reviewed Normal [facility] Comment on above: Result Comment: Leuk ocytosis. Macrocytosis Clinical correlation necessary. Manuel Wright M.D. 10/21/23 AMENDED REPORT 10/21/23 1344 PATH REV previously reported as: August Performed By: #### L 100.0100, L500.2500 ####[facility] [address] [place], [address] Basic Metabolic Profile (BMP )on 10-20-2023 BUN/CRE 17.9 RATIO Normal 10-20 [facility] Comment on above: Performed By: #### L 100.0100, L500.2500 ####[facility] [address] [place], [address] CA,Total 8.9 mg/dL Normal 8.5-10.1 [facility] Comment on above: Performed By: #### L 100.0100, L500.2500 ####[facility] [address] [place], [address] Chloride [Moles/Vol] 104 mmol/L Normal 98-107 [facility] Comment on above: Performed By: #### L 100.0100, L500.2500 ####[facility] [address] [place], [address] CO2 [Moles/Vol] 31.0 mmol/L Normal 21.0-32.0 [facility] Comment on above: Performed By: #### L 100.0100, L500.2500 ####[facility] [address] [place], [address] Creatinine [Mass/Vol] 1.23 mg/dL Normal 0.70-1.30 [facility] Comment on above: Result Comment: The validity of the calculated GFR GFRAA in patients over 70 years has not been determined. Clinical correlation is essential. Performed By: #### L 100.0100, L500.2500 ####[facility] [address] [place], [address] ECRCL 72.11 ml/min Normal [facility] Comment on above: Performed By: #### L 100.0100, L500.2500 ####[facility] [address] [place], [address] EST GFR - AA 77 mL/min Normal >60 [facility] Comment on above: Result Comment: Afri can Spanish GFR Calc Performed By: #### L 100.0100, L500.2500 ####[facility] [address] [place], [address] GAP 4 Low 5-15 [facility] Comment on above: Performed By: #### L 100.0100, L500.2500 ####[facility] [address] [place], [address] GFR/1.73 sq M.predicted among non-blacks MDRD (S/P/Bld) [Vol rate/Area] 64 mL/min/{1.73_m2} Normal >60 [facility] Comment on above: Result Comment: Non- GFR Calc Performed By: #### L 100.0100, L500.2500 ####[facility] [address] [place], [address] Glucose [Mass/Vol] 98 mg/dL Normal 74-106 [facility] Comment on above: Performed By: #### L 100.0100, L500.2500 ####[facility] [address] [place], [address] Potassium [Moles/Vol] 3.8 mmol/L Normal 3.5-5.1 [facility] Comment on above: Performed By: #### L 100.0100, L500.2500 ####[facility] [address] [place], [address] Sodium [Moles/Vol] 139 mmol/L Normal 136-145 [facility] Comment on above: Performed By: #### L 100.0100, L500.2500 ####[facility] [address] [place], [address] Urea nitrogen [Mass/Vol] 22 mg/dL High 7-18 [facility] Comment on above: Performed By: #### L 100.0100, L500.2500 ####[facility] [address] [place], [address] Emergency Department Summary on 10-20-2023 Emergency Department Summary [facility] Medical Records Department [address] [place] [address] Emergency Department Summary 10/20/23 MR#: [id number] Acct: [id number] Name: SHAWNA PRAJAPATI Rep #: [id number] : 1965 58 From: Ángel Christie MD PCP: Dr. Samir Jordan MD Status:REG ER Location: ED HPI History of Present Illness Chief Complaint: Neuro S/Sx Detail of Chief Complaint: Cramping swelling of his fingers and toes left side yesterday at [employer] Informant: patient Onset/Context/Timing Onset: Yesterday Context: Sudden Onset Timing: Intermittent and Lasts (Duration 15 minutes) Quality: Curling of his fingers and toes causing him pain on the left side Location: Left side Current Severity: Gone Maximum Severity: Severe Worsened by: Nothing Relieved by: Nothing Associated Symptoms Associated Symptoms: No other symptoms Narrative Narrative: Patient is a 58-year-old male. Patient lives in his [facility]. He has been out in the warm weather the past several days. He has not been eating or drinking much. He is presently unemployed. Has been unemployed since 2011 due to back injury. Patient denies headache. Patient [place] visual, ocular auditory symptoms. Patient denies trouble with speech or swallowing. Patient denies paresthesia, anesthesia or motor weakness upper or lower extremities. Patient denies problems with coordination or balance. Patient has been out in the sun a lot. Prior similar symptoms: No Recent Illness/Hospitalizatio n: No PFSH PFSH Medical History Homelessness Hyperlipemia HTN (hypertension) CAD (coronary artery disease) History of COPD History of [place] (myocardial infarction) Lumbar stenosis MARGARITO (obstructive sleep apnea) Asthma Myocardial infarct Home Medications ???Medication ???Instructions ???Recorded ???Last Taken ???Type albuterol sulfate 90 mcg/actuation 1 inh inhalation BID SOB 11/09/21 11/09/21 History aerosol inhaler (Ventolin HFA) lisinopril 20 mg tablet 20 mg PO DAILY bp 11/09/21 11/09/21 History aspirin 81 mg tablet,delayed 81 mg PO DAILY 04/12/22 Unknown History release atorvastatin 80 mg tablet 80 mg PO QHS 04/12/22 Unknown History metoprolol tartrate 25 mg tablet 25 mg PO DAILY 04/12/22 Unknown History budesonide 160 mcg-glycopyr 9 2 inh inhalation BID 02/09/23 Unknown History mcg-formot 4.8 mcg/actuation HFA inhaler (Breztri Aerosphere) rivaroxaban 15 mg (42)-20 mg (9) 1 tab PO DAILY 02/09/23 Unknown History tablets in a starter pack (Xarelto DVT-PE Treatment 30-Day Starter) sulfamethoxazole 800 1 tab PO BID #14 TABLETS 02/09/23 Unknown Rx mg-trimethoprim 160 mg tablet chlorthalidone 25 mg tablet 25 mg PO DAILY 10/20/23 Unknown History Allergy/AdvReac Type Severity Reaction Status Date / Time cabbage Allergy can not Verified 10/20/23 17:12 swallow lettuce Allergy can not Verified 10/20/23 17:12 swallow onion Allergy Vomiting Verified 10/20/23 17:12 peanut Allergy Anaphylaxis Verified 10/20/23 17:12 garlic AdvReac Mild Abd Verified 10/20/23 17:12 cramps/diarrhea Family History Father No problems noted. Surgical History H/O hernia repair Stented coronary artery Social History housing: homeless other: Patient is currently living out of his car and is supposed to be on oxygen Smoking Status: Former smoker alcohol intake: never substance use type: does not use ROS ROS ED Constitutional Constitutional ED: Reports sweats and other Details: Sweats due to the hot weather and high heat index. ; Denies chills, fever(s), subjective or weight loss Eyes Eyes: Denies blurry vision, change in vision or diplopia ENT ENT ED: Denies ear pain, rhinorrhea or sore throat Cardiovascular Cardiovascular: Denies chest pain or palpitations Respiratory/Chest Respiratory/Chest: Denies cough, dyspnea or dyspnea on exertion Gastrointestinal Gastrointestinal: Denies abdominal pain, diarrhea, nausea or vomiting Genitourinary Genitourinary ED: Reports other Details: Urine has been darker recently. ; Denies dysuria, hematuria or urinary frequency Musculoskeletal Musculoskeletal: Denies arthralgias or myalgias Integumentary Reports other Details: Patient does have sunburn to his upper torso and extremities. ; Denies rash Neurologic Neurologic: Denies headache(s), paresthesias or weakness Psychiatric Psychiatric: Denies anxiety Hematologic/Lymphatic Hematologic/Lymphatic: Reports systems reviewed and no addt'l complaints, except as documented EXAM Physical Exam Const Vital Signs: 10/20/23 16:24 10/20/23 18:24 Temperature 96.9 F L Temp (more content not included)... Normal [facility] XR Chest PA and Lateralon IMPRESSION: Stable exam without acute findings. Computer Analyst Supervisor: MASON Transcribe Date/Time: Oct 14 2023 5:09P Dictated by : JESS FELICIANO MD This examination was interpreted and the report reviewed and electronically signed by: JESS FELICIANO MD on Oct 14 2023 5:10PM [facility] DIVISION OF RADIOLOGY * * *Final Report* * * DATE OF EXAM: Oct 13 2023 4:28PM WOX 5291 - XR CHEST 2V FRONTAL/LAT / PROCEDURE REASON: multiple diagnoses * * * * Physician Interpretation * * * * EXAMINATION: CHEST RADIOGRAPH (2 VIEW FRONTAL & LATERAL) CLINICAL HISTORY: Chronic obstructive pulmonary disease with acute exacerbation (HCC) History of hemoptysis MQ: XC2_6 EXAM DATE/TIME: 10/13/2023 4:28 PM COMPARISON: Chest x-ray on 04/23/2023 RESULT: Lines, tubes, and devices: None. Lungs and pleura: No consolidation. No lung mass. No pleural effusion. No pneumothorax. Cardiomediastinal silhouette: Stable cardiomediastinal silhouette. Bones and soft tissues: There are degenerative changes in the spine. DIVISION OF RADIOLOGY Provider, [facility] - 10/14/2023 * * *Final Report* * * DATE OF EXAM: Oct 13 2023 4:28PM WOX 5291 - XR CHEST 2V FRONTAL/LAT / PROCEDURE REASON: multiple diagnoses * * * * Physician Interpretation * * * * EXAMINATION: CHEST RADIOGRAPH (2 VIEW FRONTAL & LATERAL) CLINICAL HISTORY: Chronic obstructive pulmonary disease with acute exacerbation (HCC) History of hemoptysis MQ: XC2_6 EXAM DATE/TIME: 10/13/2023 4:28 PM COMPARISON: Chest x-ray on 04/23/2023 RESULT: Lines, tubes, and devices: None. Lungs and pleura: No consolidation. No lung mass. No pleural effusion. No pneumothorax. Cardiomediastinal silhouette: Stable cardiomediastinal silhouette. Bones and soft tissues: There are degenerative changes in the spine. IMPRESSION IMPRESSION: Stable exam without acute findings. Computer Analyst Supervisor: MASON Transcribe Date/Time: Oct 14 2023 5:09P Dictated by : JESS FELICIANO MD This examination was interpreted and the report reviewed and electronically signed by: JESS FELICIANO MD on Oct 14 2023 5:10PM EST [facility] XR Chest PA and LateralOrder ed By: Ccf Provider on 10-14-2023 [facility] XR Chest PA and Lateralon Radiology Study observation (narrative) [facility] Absolute lymphocyte countOrd ered By: Domenic Senior on 07-27-2023 Lymphocytes Auto (Unsp spec) [#/Vol] 1.82 10*3/uL 0.83-4.51 [facility] Activated partial thrombopla stin time (aPTT) in platelet poor plasma by coagulation aOrdered By: Domenic Senior on 07-27-2023 aPTT Coag (PPP) [Time] 35.4 s 24.1-36.2 Wo [facility] Automated lymphocyte count a s percentage of total leukocytesOrdered By: Domenic Senior on 07-27-2023 Lymphocytes/100 WBC Auto (Unsp spec) 26.3 % 19-41 [facility] Basophil percentageOrdered B y: Domenic Senior on 07-27-2023 Basophil percentage 0-5 SEEN /hpf 0-5 Wo [facility] Basophils/100 WBC (Bld) 1.7 % 0-1 [facility] Chloride [Moles/Vol] 107 mmol/L 98-107 [facility] Eosinophils/100 WBC (Bld) 4.8 % 0-5 [facility] Glucose [Mass/Vol] 93 mg/dL 74-106 [facility] Hemoglobin (Bld) [Mass/Vol] 14.3 g/dL 13.0-16.5 [facility] Monocytes/100 WBC (Bld) 17.9 % 0-10 [facility] Neutrophils (Bld) [#/Vol] 3.4 10*3/uL 2.0-7.7 [facility] Neutrophils/100 WBC (Bld) 49.0 % 47-70 [facility] Potassium [Moles/Vol] 3.9 mmol/L 3.5-5.1 [facility] Sodium [Moles/Vol] 141 mmol/L 136-145 [facility] WBC (Bld) [#/Vol] 6.9 10*3/uL 4.4-11.0 [facility] Bilirubin Test strip Ql (U)O rdered By: Domenic Senior on 07-27-2023 Bilirubin Ql (U) Negative Negative [facility] Determination of erythrocyte mean corpuscular volume (MCV)Ordered By: Domenic Senior on 07-27-2023 MCV (RBC) [Entitic vol] 95.8 fL 80-94 [facility] Erythrocyte distribution wid th ratioOrdered By: Domenic Senior on 07-27-2023 Erythrocyte distribution width (RBC) [Ratio] 13.8 % 11.6-14.6 [facility] Erythrocyte distribution wid th standard deviationOrdered By: Domenic Senior on 07-27-2023 Erythrocyte distribution width (RBC) [Entitic vol] 48.9 fL 35.1-43.9 [facility] Hematocrit Auto (Bld) [Volum e fraction]Ordered By: Domenic Senior on 07-27-2023 Hematocrit (Bld) [Volume fraction] 45.6 % 40-54 [facility] Immature granulocytes/100 WB C Auto (Bld)Ordered By: Domenic Senior on 07-27-2023 Immature granulocytes/100 WBC (Bld) 0.300 % 0.0-0.9 [facility] Comment on above: IG% - Immature Granu locytes (promyelocytes, myelocytes and metamyelocytes) > 1% indicates that a LEFT SHIFT is Present. Ketones Test strip Ql (U)Ord ered By: Domenic Senior on 07-27-2023 Ketones Ql (U) Negative Negative [facility] Laboratory - Chemistry and C hemistry - challengeOrdered By: Domenic Senior on 07-27-2023 CO2 [Moles/Vol] 30.0 mmol/L 21.0-32.0 [facility] Urea nitrogen/Creatinine [Mass ratio] 14.3 mg/mg 10-20 [facility] Laboratory - CoagulationOrde red By: Domenic Senior on 07-27-2023 INR Coag (Bld) [Relative time] 1.8 {INR} [facility] PT Coag (PPP) [Time] 20.7 s 11.7-14.9 [facility] Laboratory - Hematology and Cell countsOrdered By: Domenic Senior on 07-27-2023 MCH (RBC) [Entitic mass] 30.0 pg 27.0-32.0 [facility] MCHC (RBC) [Mass/Vol] 31.4 g/dL 32-36 [facility] Nucleated RBC/100 WBC (Bld) [Ratio] 0 % 0-5 [facility] Platelet mean volume (Bld) [Entitic vol] 10.5 fL 6.2-12.0 [facility] Platelets (Bld) [#/Vol] 260 10*3/uL 150-450 [facility] Mucus LM Ql (Urine sed)Order ed By: Domenic Senior on 07-27-2023 Mucus Ql (Urine sed) 0 SEEN /hpf [facility] Nitrite Test strip Ql (U)Ord ered By: Domenic Senior on 07-27-2023 Nitrite Ql (U) Negative Negative [facility] No Panel InformationOrdered By: Domenic Senior on 07-27-2023 Estimated GFR (MDRD) Amer 93 mL/min >60 [facility] Comment on above: GFR Calc Estimated GFR (MDRD) Non-Af Amer 77 mL/min >60 [facility] Comment on above: Non- GFR Calc Urine RBC 5-10 SEEN /hpf 0-5 [facility] Protein Test strip Ql (U)Ord ered By: Domenic Senior on 07-27-2023 Protein Ql (U) 15 mg/dl Negative [facility] RBC Auto (Bld) [#/Vol]Ordere d By: Domenic Senior on 07-27-2023 RBC (Bld) [#/Vol] 4.76 10*6/uL 4.6-6.2 [facility] Serum or plasma calcium edith urement (mass/volume)Ordered By: Domenic Senior on 07-27-2023 Calcium [Mass/Vol] 8.9 mg/dL 8.5-10.1 [facility] Serum or plasma creatinine m easurement (mass/volume)Ordered By: Domenic Senior on 07-27-2023 Creatinine [Mass/Vol] 1.05 mg/dL 0.70-1.30 [facility] Comment on above: The validity of the calculated GFR & GFRAA in patients over 70 years has not been determined. Clinical correlation is essential. Serum or plasma urea nitroge n measurement (mass/volume)Ordered By: Domenic Senior on 07-27-2023 Urea nitrogen [Mass/Vol] 15 mg/dL 7-18 [facility] Squamous epithelial cells de tection in urine sediment by light microscopyOrdered By: Domenic Senior on 07-27-2023 Epithelial cells.squamous LM Ql (Urine sed) 0 SEEN /hpf 0-5 [facility] Thin prep Papanicolaou smear with manual screeningOrdered By: Domenic Senior on 07-27-2023 Thin prep Papanicolaou smear with manual screening 4 5-15 [facility] Urine blood detectionOrdered By: Domenic Senior on 07-27-2023 RBC Ql (U) 250 /ul Negative [facility] Urine clarityOrdered By: Shorty Senior on 07-27-2023 Clarity (U) Clear Clear [facility] Urine color determinationOrd ered By: Domenic Senior on 07-27-2023 Color (U) Yellow Yellow [facility] Urine glucose detectionOrder ed By: Domenic Senior on 07-27-2023 Glucose Ql (U) Normal mg/dl Normal [facility] Urine leukocyte esterase det ection by dipstickOrdered By: Domenic Senior on 07-27-2023 Leukocyte esterase Test strip Ql (U) 25 /ul Negative [facility] Urine pHOrdered By: Domenic bajwa on 07-27-2023 pH (U) 6.0 [pH] 5.0 - 8.0 [facility] Urine sediment bacteria coun t by microscopy (number/high power field)Ordered By: Domenic Senior on 07-27-2023 Bacteria LM.HPF (Urine sed) [#/Area] 0 /[HPF] None Seen [facility] Urine specific gravity measu rementOrdered By: Domenic Senior on 07-27-2023 Specific gravity (U) [Rel density] 1.010 1.002-1.030 [facility] Urine urobilinogen measureme ntOrdered By: Domenic Senior on 07-27-2023 Urobilinogen Ql (U) Normal mg/dl Normal [facility] Absolute lymphocyte countOrd ered By: Arley Alvarado on 06-15-2023 Lymphocytes Auto (Unsp spec) [#/Vol] 1.13 10*3/uL 0.83-4.51 [facility] Automated lymphocyte count a s percentage of total leukocytesOrdered By: Arley Alvarado on 06-15-2023 Lymphocytes/100 WBC Auto (Unsp spec) 15.9 % 19-41 [facility] Basophil percentageOrdered B y: Arley Alvarado on 06-15-2023 Basophils/100 WBC (Bld) 1.0 % 0-1 [facility] Chloride [Moles/Vol] 108 mmol/L 98-107 [facility] Eosinophils/100 WBC (Bld) 3.1 % 0-5 [facility] Glucose [Mass/Vol] 100 mg/dL 74-106 [facility] Comment on above: Fasting Glucose resu lt from 100 to 125 mg/dL suggests IMPAIRED HOMEOSTASIS per A.D.A. criteria. Hemoglobin (Bld) [Mass/Vol] 14.6 g/dL 13.0-16.5 [facility] Monocytes/100 WBC (Bld) 17.6 % 0-10 [facility] Neutrophils (Bld) [#/Vol] 4.4 10*3/uL 2.0-7.7 [facility] Neutrophils/100 WBC (Bld) 62.0 % 47-70 [facility] Potassium [Moles/Vol] 3.9 mmol/L 3.5-5.1 [facility] Sodium [Moles/Vol] 143 mmol/L 136-145 [facility] WBC (Bld) [#/Vol] 7.1 10*3/uL 4.4-11.0 [facility] Determination of erythrocyte mean corpuscular volume (MCV)Ordered By: Arley Alvarado on 06-15-2023 MCV (RBC) [Entitic vol] 98.1 fL 80-94 [facility] Erythrocyte distribution wid th ratioOrdered By: Arleylaurence Alvarado on 06-15-2023 Erythrocyte distribution width (RBC) [Ratio] 13.9 % 11.6-14.6 [facility] Erythrocyte distribution wid th standard deviationOrdered By: Arley Alvarado on 06-15-2023 Erythrocyte distribution width (RBC) [Entitic vol] 50.3 fL 35.1-43.9 [facility] Hematocrit Auto (Bld) [Volum e fraction]Ordered By: Arley Alvarado on 06-15-2023 Hematocrit (Bld) [Volume fraction] 46.8 % 40-54 [facility] Immature granulocytes/100 WB C Auto (Bld)Ordered By: Arley Alvarado on 06-15-2023 Immature granulocytes/100 WBC (Bld) 0.400 % 0.0-0.9 [facility] Comment on above: IG% - Immature Granu locytes (promyelocytes, myelocytes and metamyelocytes) > 1% indicates that a LEFT SHIFT is Present. Laboratory - Chemistry and C hemistry - challengeOrdered By: Arley Alvarado on 06-15-2023 CO2 [Moles/Vol] 33.0 mmol/L 21.0-32.0 [facility] Natriuretic peptide B (Bld) [Mass/Vol] 30.8 pg/mL 0-100 [facility] Urea nitrogen/Creatinine [Mass ratio] 16.9 mg/mg 10-20 [facility] Laboratory - Hematology and Cell countsOrdered By: Arley Alvarado on 06-15-2023 MCH (RBC) [Entitic mass] 30.6 pg 27.0-32.0 [facility] MCHC (RBC) [Mass/Vol] 31.2 g/dL 32-36 [facility] Nucleated RBC/100 WBC (Bld) [Ratio] 0 % 0-5 [facility] Platelet mean volume (Bld) [Entitic vol] 9.8 fL 6.2-12.0 [facility] Platelets (Bld) [#/Vol] 245 10*3/uL 150-450 [facility] Laboratory - Microbiology an d Antimicrobial susceptibilityOrdered By: Arley Alvarado on 06-15-2023 SARS-CoV-2 (COVID-19) RNA STEPHEN+probe Ql (Unsp spec) [facility] SARS-CoV-2 (COVID-19) RNA STEPHEN+probe Ql (Unsp spec) [facility] No Panel InformationOrdered By: Arley Alvarado on 06-15-2023 Troponin I High Sensitivity 18 pg/mL 3.0-78.0 [facility] Comment on above: Please Note: New Марина t Units and Gender Specific Reference Ranges. For more information see Policy Stat Procedure [place] High Sensitivity Troponin (TNIH) and attachments. Estimated Creatinine Clearance Calc 93.85 ml/min [facility] Estimated GFR (MDRD) Amer 105 mL/min >60 [facility] Comment on above: GFR Calc Estimated GFR (MDRD) Non-Af Amer 87 mL/min >60 [facility] Comment on above: Non- GFR Calc RBC Auto (Bld) [#/Vol]Ordere d By: Arley Alvarado on 06-15-2023 RBC (Bld) [#/Vol] 4.77 10*6/uL 4.6-6.2 [facility] Serum or plasma calcium edith urement (mass/volume)Ordered By: Arley Alvarado on 06-15-2023 Calcium [Mass/Vol] 8.9 mg/dL 8.5-10.1 [facility] Serum or plasma creatinine m easurement (mass/volume)Ordered By: Arley Alvarado on 06-15-2023 Creatinine [Mass/Vol] 0.94 mg/dL 0.70-1.30 [facility] Comment on above: The validity of the calculated GFR & GFRAA in patients over 70 years has not been determined. Clinical correlation is essential. Serum or plasma urea nitroge n measurement (mass/volume)Ordered By: Arley Alvarado on 06-15-2023 Urea nitrogen [Mass/Vol] 16 mg/dL 7-18 [facility] Thin prep Papanicolaou smear with manual screeningOrdered By: Arley Alvarado on 06-15-2023 Thin prep Papanicolaou smear with manual screening 2 5-15 [facility] XR Chest PA and Lateralon IMPRESSION: No acute radiographic abnormality. Emphysema. Computer Analyst Supervisor: PSCB Transcribe Date/Time: Apr 23 2023 10:50A Dictated by : ADALBERTO MANCUSO DO This examination was interpreted and the report reviewed and electronically signed by: ADALBERTO MANCUSO DO on Apr 23 2023 10:54AM [facility] DIVISION OF RADIOLOGY * * *Final Report* * * DATE OF EXAM: Apr 23 2023 10:47AM WOX 5291 - XR CHEST 2V FRONTAL/LAT / PROCEDURE REASON: Viral URI with cough * * * * Physician Interpretation * * * * EXAMINATION: CHEST RADIOGRAPH (2 VIEW FRONTAL & LATERAL) PATIENT/TECHNOLOGIST PROVIDED HISTORY: cough and congestion for 5 days CLINICAL HISTORY: 57 years old Male with Viral URI with cough MQ: XC2_6 EXAM DATE/TIME: 04/23/2023 10:47 AM COMPARISON: Chest radiograph 01/15/2023, CT 11/06/2022 RESULT: Lines, tubes, and devices: None. Lungs and pleura: Emphysema and mild biapical pleural-parenchymal scarring. No consolidation. No pleural effusion or pneumothorax. Cardiomediastinal silhouette: Normal cardiomediastinal silhouette. Coronary artery stents. Bones and soft tissues: Endplate degenerative changes in the thoracic spine. DIVISION OF RADIOLOGY Provider, [facility] - 04/23/2023 * * *Final Report* * * DATE OF EXAM: Apr 23 2023 10:47AM WOX 5291 - XR CHEST 2V FRONTAL/LAT / PROCEDURE REASON: Viral URI with cough * * * * Physician Interpretation * * * * EXAMINATION: CHEST RADIOGRAPH (2 VIEW FRONTAL & LATERAL) PATIENT/TECHNOLOGIST PROVIDED HISTORY: cough and congestion for 5 days CLINICAL HISTORY: 57 years old Male with Viral URI with cough MQ: XC2_6 EXAM DATE/TIME: 04/23/2023 10:47 AM COMPARISON: Chest radiograph 01/15/2023, CT 11/06/2022 RESULT: Lines, tubes, and devices: None. Lungs and pleura: Emphysema and mild biapical pleural-parenchymal scarring. No consolidation. No pleural effusion or pneumothorax. Cardiomediastinal silhouette: Normal cardiomediastinal silhouette. Coronary artery stents. Bones and soft tissues: Endplate degenerative changes in the thoracic spine. IMPRESSION IMPRESSION: No acute radiographic abnormality. Emphysema. Computer Analyst Supervisor: PSCCyndie Transcribe Date/Time: Apr 23 2023 10:50A Dictated by : ADALBERTO MANCUSO DO This examination was interpreted and the report reviewed and electronically signed by: ADALBERTO MANCUSO DO on Apr 23 2023 10:54AM EST [facility] Radiology Study observation (narrative) [facility] XR Chest PA and LateralOrder ed By: Ccf Provider on 04-23-2023 [facility] US ABDOMEN COMPLETEon 2022 [facility] GGT BLDon 01-16-2023 Gamma glutamyl transferase [Catalytic activity/Vol] 15 U/L 10 - 70 U/L [facility] CBC panel Auto (Bld)on 01-15 Erythrocyte distribution width (RBC) [Ratio] 13.4 % 11.5 - 15.0 % [facility] Hematocrit (Bld) [Volume fraction] 46.2 % 39.0 - 51.0 % [facility] Hemoglobin (Bld) [Mass/Vol] 14.2 g/dL 13.0 - 17.0 g/dL [facility] MCH (RBC) [Entitic mass] 30.7 pg 26. 0 - 34.0 pg [facility] MCHC (RBC) [Mass/Vol] 30.7 g/dL 30.5 - 36.0 g/dL [facility] MCV (RBC) [Entitic vol] 100.0 fL 80.0 - 100.0 fL [facility] Nucleated RBC (Bld) [#/Vol] <0.01 k/uL [facility] Platelet mean volume (Bld) [Entitic vol] 10.4 fL 9.0 - 12.7 fL [facility] Platelets (Bld) [#/Vol] 287 10*3/uL 150 - 400 k/uL [facility] RBC (Bld) [#/Vol] 4.62 10*6/uL 4.20 - 6.0 0 m/uL [facility] WBC (Bld) [#/Vol] 7.09 10*3/uL 3.70 - 11.00 k/uL [facility] Comprehensive metabolic 2000 panelon 01-15-2023 Albumin [Mass/Vol] 3.7 g/dL Low 3.9 - 4.9 g/dL [facility] ALP [Catalytic activity/Vol] 140 U/L High 38 - 113 U/L [facility] ALT [Catalytic activity/Vol] 16 U/L 10 - 54 U/L [facility] Anion gap [Moles/Vol] 8 mmol/L Low 9 - 18 mmol/L [facility] AST [Catalytic activity/Vol] 15 U/L 14 - 40 U/L [facility] Bilirubin [Mass/Vol] 0.6 mg/dL 0.2 - 1 .3 mg/dL [facility] Calcium [Mass/Vol] 9.0 mg/dL 8.5 - 10. 2 mg/dL [facility] Chloride [Moles/Vol] 105 mmol/L 97 - 10 5 mmol/L [facility] CO2 [Moles/Vol] 31 mmol/L High 22 - 30 mmol/L [facility] Creatinine [Mass/Vol] 1.06 mg/dL 0.73 - 1.22 mg/dL [facility] Estimated Glomerular Filtration Rate 81 mL/min/1.73m >=60 mL/min/1.73 m [facility] Glucose [Mass/Vol] 89 mg/dL 74 - 99 mg/dL [facility] Potassium [Moles/Vol] 4.2 mmol/L 3.7 - 5.1 mmol/L [facility] Protein [Mass/Vol] 6.6 g/dL 6.3 - 8.0 g/dL [facility] Sodium [Moles/Vol] 144 mmol/L 136 - 144 mmol/L [facility] Urea nitrogen [Mass/Vol] 9 mg/dL 9 - 24 mg/dL [facility] No Panel Informationon 01-15 [facility] Absolute lymphocyte countOrd ered By: Cammy Alberto on 12-22-2022 Lymphocytes Auto (Unsp spec) [#/Vol] 1.25 10*3/uL 0.83-4.51 [facility] Basophil percentageOrdered B y: Cammy Alberto on 12-22-2022 Basophil percentage 3.1 mg/dL 2.5-4.9 [facility] Basophils/100 WBC (Bld) 1.3 % 0-1 [facility] Chloride [Moles/Vol] 106 mmol/L 98-107 [facility] Eosinophils/100 WBC (Bld) 3.0 % 0-5 [facility] Glucose [Mass/Vol] 106 mg/dL 74-106 [facility] Comment on above: Fasting Glucose resu lt from 100 to 125 mg/dL suggests IMPAIRED HOMEOSTASIS per A.D.A. criteria. Neutrophils (Bld) [#/Vol] 3.5 10*3/uL 2.0-7.7 [facility] Neutrophils/100 WBC (Bld) 58.7 % 47-70 [facility] Potassium [Moles/Vol] 3.5 mmol/L 3.5-5.1 [facility] Sodium [Moles/Vol] 141 mmol/L 136-145 [facility] WBC (Bld) [#/Vol] 6.0 10*3/uL 4.4-11.0 [facility] Blood erythrocytes count (nu mber/volume)Ordered By: Cammy Alberto on 12-22-2022 RBC (Bld) [#/Vol] 4.50 10*6/uL 4.6-6.2 [facility] Blood hemoglobin measurement (mass/volume)Ordered By: Cammy Alberto on 12-22-2022 Hemoglobin (Bld) [Mass/Vol] 14.2 g/dL 13.0-16.5 [facility] Blood lymphocytes/100 leukoc ytesOrdered By: Cammy Alberto on 12-22-2022 Lymphocytes/100 WBC (Bld) 20.8 % 19-41 [facility] Blood monocytes/100 leukocyt esOrdered By: Cammy Alberto on 12-22-2022 Monocytes/100 WBC (Bld) 16.0 % 0-10 [facility] Blood platelet mean volumeOr dered By: Cammy Alberto on 12-22-2022 Platelet mean volume (Bld) [Entitic vol] 9.6 fL 6.2-12.0 [facility] Determination of erythrocyte mean corpuscular volume (MCV)Ordered By: Cammy Alberto on 12-22-2022 MCV (RBC) [Entitic vol] 98.9 fL 80-94 [facility] Hematocrit Auto (Bld) [Volum e fraction]Ordered By: Cammy Alberto on 12-22-2022 Hematocrit (Bld) [Volume fraction] 44.5 % 40-54 [facility] Laboratory - Chemistry and C hemistry - challengeOrdered By: Cammy Alberto on 12-22-2022 CO2 [Moles/Vol] 34.0 mmol/L 21.0-32.0 [facility] Magnesium [Mass/Vol] 2.0 mg/dL 1.6-2.6 [facility] Urea nitrogen/Creatinine [Mass ratio] 8.2 mg/mg 10-20 [facility] Laboratory - Hematology and Cell countsOrdered By: Cammy Alberto on 12-22-2022 Erythrocyte distribution width (RBC) [Entitic vol] 48.0 fL 35.1-43.9 [facility] Erythrocyte distribution width (RBC) [Ratio] 13.2 % 11.6-14.6 [facility] Immature granulocytes/100 WBC (Bld) 0.200 % 0.0-0.9 [facility] Comment on above: IG% - Immature Granu locytes (promyelocytes, myelocytes and metamyelocytes) > 1% indicates that a LEFT SHIFT is Present. MCH (RBC) [Entitic mass] 31.6 pg 27.0-32.0 [facility] Nucleated RBC/100 WBC (Bld) [Ratio] 0 % 0-5 [facility] MCHC Auto (RBC) [Mass/Vol]Or dered By: Cammy Alberto on 12-22-2022 MCHC (RBC) [Mass/Vol] 31.9 g/dL 32-36 [facility] No Panel InformationOrdered By: Cammy Alberto on 12-22-2022 Estimated Creatinine Clearance Calc 61.71 ml/min [facility] Estimated GFR (MDRD) Amer 78 mL/min >60 [facility] Comment on above: GFR Calc Estimated GFR (MDRD) Non-Af Amer 65 mL/min >60 [facility] Comment on above: Non- GFR Calc Thyroid Stimulating Hormone (TSH) 1.38 uIU/mL 0.358-3.74 [facility] Platelets bldOrdered By: Christina Alberto on 12-22-2022 Platelets (Bld) [#/Vol] 268 10*3/uL 150-450 [facility] Serum or plasma calcium edith urement (mass/volume)Ordered By: Cammy Alberto on 12-22-2022 Calcium [Mass/Vol] 8.6 mg/dL 8.5-10.1 [facility] Serum or plasma creatinine m easurement (mass/volume)Ordered By: Cammy Alberto on 12-22-2022 Creatinine [Mass/Vol] 1.22 mg/dL 0.70-1.30 [facility] Comment on above: The validity of the calculated GFR & GFRAA in patients over 70 years has not been determined. Clinical correlation is essential. Serum or plasma urea nitroge n measurement (mass/volume)Ordered By: Cammy Alberto on 12-22-2022 Urea nitrogen [Mass/Vol] 10 mg/dL 7-18 [facility] Thin prep Papanicolaou smear with manual screeningOrdered By: Cammy Alberto on 12-22-2022 Thin prep Papanicolaou smear with manual screening 1 5-15 [facility] Absolute lymphocyte countOrd ered By: Chucho Raphael on 12-21-2022 Lymphocytes Auto (Unsp spec) [#/Vol] 1.17 10*3/uL 0.83-4.51 [facility] Basophil percentageOrdered B y: Chucho Raphael on 12-21-2022 Basophils/100 WBC (Bld) 1.0 % 0-1 [facility] Bilirubin [Mass/Vol] 0.60 mg/dL 0.20-1.00 [facility] Comment on above: For patients on eltr ombopag therapy, use of Dimension [place] TBIL is not recommended. Chloride [Moles/Vol] 108 mmol/L 98-107 [facility] Eosinophils/100 WBC (Bld) 2.5 % 0-5 [facility] Glucose [Mass/Vol] 102 mg/dL 74-106 [facility] Comment on above: Fasting Glucose resu lt from 100 to 125 mg/dL suggests IMPAIRED HOMEOSTASIS per A.D.A. criteria. Neutrophils (Bld) [#/Vol] 5.9 10*3/uL 2.0-7.7 [facility] Neutrophils/100 WBC (Bld) 70.5 % 47-70 [facility] Potassium [Moles/Vol] 3.4 mmol/L 3.5-5.1 [facility] Protein [Mass/Vol] 6.4 g/dL 6.4-8.2 [facility] Sodium [Moles/Vol] 141 mmol/L 136-145 [facility] WBC (Bld) [#/Vol] 8.4 10*3/uL 4.4-11.0 [facility] Blood erythrocytes count (nu mber/volume)Ordered By: Chucho Raphael on 12-21-2022 RBC (Bld) [#/Vol] 4.42 10*6/uL 4.6-6.2 [facility] Blood hemoglobin measurement (mass/volume)Ordered By: Chucho Raphael on 12-21-2022 Hemoglobin (Bld) [Mass/Vol] 13.4 g/dL 13.0-16.5 [facility] Blood lymphocytes/100 leukoc ytesOrdered By: Chucho Raphael on 12-21-2022 Lymphocytes/100 WBC (Bld) 13.9 % 19-41 [facility] Blood monocytes/100 leukocyt esOrdered By: Chucho Raphael on 12-21-2022 Monocytes/100 WBC (Bld) 11.7 % 0-10 [facility] Blood platelet mean volumeOr dered By: Chucho Raphael on 12-21-2022 Platelet mean volume (Bld) [Entitic vol] 9.6 fL 6.2-12.0 [facility] Determination of erythrocyte mean corpuscular volume (MCV)Ordered By: Chucho Raphael on 12-21-2022 MCV (RBC) [Entitic vol] 98.6 fL 80-94 [facility] Direct bilirubinOrdered By: Chucho Raphael on 12-21-2022 Bilirubin.direct [Mass/Vol] 0.16 mg/dL 0.00-0.30 [facility] Hematocrit Auto (Bld) [Volum e fraction]Ordered By: Chucho Raphael on 12-21-2022 Hematocrit (Bld) [Volume fraction] 43.6 % 40-54 [facility] Laboratory - Chemistry and C hemistry - challengeOrdered By: Chucho Raphael on 12-21-2022 ALP [Catalytic activity/Vol] 135 U/L 45-117 [facility] ALT [Catalytic activity/Vol] 51 U/L 16-61 [facility] CO2 [Moles/Vol] 30.0 mmol/L 21.0-32.0 [facility] Globulin (S) [Mass/Vol] 3.5 g/dL 2.2-4.2 [facility] Natriuretic peptide B (Bld) [Mass/Vol] 40.6 pg/mL 0-100 [facility] Urea nitrogen/Creatinine [Mass ratio] 10.2 mg/mg 10-20 [facility] Laboratory - Hematology and Cell countsOrdered By: Chucho Raphael on 12-21-2022 Erythrocyte distribution width (RBC) [Entitic vol] 47.2 fL 35.1-43.9 [facility] Erythrocyte distribution width (RBC) [Ratio] 13.1 % 11.6-14.6 [facility] Immature granulocytes/100 WBC (Bld) 0.400 % 0.0-0.9 [facility] Comment on above: IG% - Immature Granu locytes (promyelocytes, myelocytes and metamyelocytes) > 1% indicates that a LEFT SHIFT is Present. MCH (RBC) [Entitic mass] 30.3 pg 27.0-32.0 [facility] Nucleated RBC/100 WBC (Bld) [Ratio] 0 % 0-5 [facility] MCHC Auto (RBC) [Mass/Vol]Or dered By: Chucho Raphael on 12-21-2022 MCHC (RBC) [Mass/Vol] 30.7 g/dL 32-36 [facility] No Panel InformationOrdered By: Chucho Raphael on 12-21-2022 D-Dimer Quantitative (PE/DVT) 1.66 FEU/ug/m 0.27-0.49 [facility] Comment on above: D-Dimer ELEVATED (>0 .49): Additional studies and clinicalassessments are indicated to conclude diagnosis of:Deep Vein Thrombosis (DVT) or Pulmonary Embolism (PE)CRITICAL VALUE VERIFIED. CALLED TO Deandre LUIS RN ER12/21/22 2354 Isaiah Salmeron.RESULTS READ BACK BY SAME. Estimated Creatinine Clearance Calc 69.70 ml/min [facility] Estimated GFR (MDRD) Amer 90 mL/min >60 [facility] Comment on above: GFR Calc Estimated GFR (MDRD) Non-Af Amer 75 mL/min >60 [facility] Comment on above: Non- GFR Calc Troponin I High Sensitivity 14 pg/mL 3.0-78.0 [facility] Comment on above: Please Note: New Марина t Units and Gender Specific Reference Ranges. For more information see Policy Stat Procedure [place] High Sensitivity Troponin (TNIH) and attachments. Platelets bldOrdered By: Garfield Raphael on 12-21-2022 Platelets (Bld) [#/Vol] 272 10*3/uL 150-450 [facility] Serum or plasma albumin edith urement (mass/volume)Ordered By: Chucho Raphael on 12-21-2022 Albumin [Mass/Vol] 2.9 g/dL 3.2-5.0 [facility] Serum or plasma calcium edith urement (mass/volume)Ordered By: Chucho Raphael on 12-21-2022 Calcium [Mass/Vol] 8.5 mg/dL 8.5-10.1 [facility] Serum or plasma creatinine m easurement (mass/volume)Ordered By: Chucho Raphael on 12-21-2022 Creatinine [Mass/Vol] 1.08 mg/dL 0.70-1.30 [facility] Comment on above: The validity of the calculated GFR & GFRAA in patients over 70 years has not been determined. Clinical correlation is essential. Serum or plasma urea nitroge n measurement (mass/volume)Ordered By: Chucho Raphael on 12-21-2022 Urea nitrogen [Mass/Vol] 11 mg/dL 7-18 [facility] Thin prep Papanicolaou smear with manual screeningOrdered By: Chucho Raphael on 12-21-2022 Thin prep Papanicolaou smear with manual screening 35 U/L 15-37 [facility] Thin prep Papanicolaou smear with manual screening 3 5-15 [facility] Absolute lymphocyte countOrd ered By: Ki Vazquez on 11-30-2022 Lymphocytes Auto (Unsp spec) [#/Vol] 1.41 10*3/uL 0.83-4.51 [facility] Basophil percentageOrdered B y: Ki Vazquez on 11-30-2022 Basophils/100 WBC (Bld) 1.1 % 0-1 [facility] Chloride [Moles/Vol] 105 mmol/L 98-107 [facility] Eosinophils/100 WBC (Bld) 1.8 % 0-5 [facility] Glucose [Mass/Vol] 104 mg/dL 74-106 [facility] Comment on above: Fasting Glucose resu lt from 100 to 125 mg/dL suggests IMPAIRED HOMEOSTASIS per A.D.A. criteria. Neutrophils (Bld) [#/Vol] 5.6 10*3/uL 2.0-7.7 [facility] Neutrophils/100 WBC (Bld) 66.9 % 47-70 [facility] Potassium [Moles/Vol] 3.7 mmol/L 3.5-5.1 [facility] Sodium [Moles/Vol] 141 mmol/L 136-145 [facility] WBC (Bld) [#/Vol] 8.3 10*3/uL 4.4-11.0 [facility] Blood erythrocytes count (nu mber/volume)Ordered By: Ki Vazquez on 11-30-2022 RBC (Bld) [#/Vol] 4.41 10*6/uL 4.6-6.2 [facility] Blood hemoglobin measurement (mass/volume)Ordered By: Ki Vazquez on 11-30-2022 Hemoglobin (Bld) [Mass/Vol] 13.7 g/dL 13.0-16.5 [facility] Blood lymphocytes/100 leukoc ytesOrdered By: Ki Vazquez on 11-30-2022 Lymphocytes/100 WBC (Bld) 16.9 % 19-41 [facility] Blood monocytes/100 leukocyt esOrdered By: Ki Vazquez on 11-30-2022 Monocytes/100 WBC (Bld) 12.8 % 0-10 [facility] Blood platelet mean volumeOr dered By: Ki Vazquez on 11-30-2022 Platelet mean volume (Bld) [Entitic vol] 10.1 fL 6.2-12.0 [facility] Determination of erythrocyte mean corpuscular volume (MCV)Ordered By: Ki Vazquez on 11-30-2022 MCV (RBC) [Entitic vol] 100.9 fL 80-94 [facility] Hematocrit Auto (Bld) [Volum e fraction]Ordered By: Ki Vazquez on 11-30-2022 Hematocrit (Bld) [Volume fraction] 44.5 % 40-54 [facility] Laboratory - Chemistry and C hemistry - challengeOrdered By: Ki Vazquez on 11-30-2022 CO2 [Moles/Vol] 32.0 mmol/L 21.0-32.0 [facility] Urea nitrogen/Creatinine [Mass ratio] 14.2 mg/mg 10-20 [facility] Laboratory - Hematology and Cell countsOrdered By: Ki Vazquez on 11-30-2022 Erythrocyte distribution width (RBC) [Entitic vol] 49.0 fL 35.1-43.9 [facility] Erythrocyte distribution width (RBC) [Ratio] 13.3 % 11.6-14.6 [facility] Immature granulocytes/100 WBC (Bld) 0.500 % 0.0-0.9 [facility] Comment on above: IG% - Immature Granu locytes (promyelocytes, myelocytes and metamyelocytes) > 1% indicates that a LEFT SHIFT is Present. MCH (RBC) [Entitic mass] 31.1 pg 27.0-32.0 [facility] Nucleated RBC/100 WBC (Bld) [Ratio] 0 % 0-5 [facility] MCHC Auto (RBC) [Mass/Vol]Or dered By: Ki Vazquez on 11-30-2022 MCHC (RBC) [Mass/Vol] 30.8 g/dL 32-36 [facility] No Panel InformationOrdered By: Ki Vazquez on 11-30-2022 Troponin I High Sensitivity 12 pg/mL 3.0-78.0 [facility] Comment on above: Please Note: New Марина t Units and Gender Specific Reference Ranges. For more information see Policy Stat Procedure [place] High Sensitivity Troponin (TNIH) and attachments. D-Dimer Quantitative (PE/DVT) 0.53 FEU/ug/m 0.27-0.49 [facility] Comment on above: D-Dimer ELEVATED (>0 .49): Additional studies and clinicalassessments are indicated to conclude diagnosis of:Deep Vein Thrombosis (DVT) or Pulmonary Embolism (PE)CRITICAL VALUE VERIFIED. CALLED TO JACLYN MANNING11/30/22 0927 Eliana Lindsey.RESULTS READ BACK BY SAME . Estimated Creatinine Clearance Calc 76.04 ml/min [facility] Estimated GFR (MDRD) Amer 100 mL/min >60 [facility] Comment on above: GFR Calc Estimated GFR (MDRD) Non-Af Amer 83 mL/min >60 [facility] Comment on above: Non- GFR Calc Platelets bldOrdered By: Jose J Vazquez on 11-30-2022 Platelets (Bld) [#/Vol] 249 10*3/uL 150-450 [facility] Serum or plasma calcium edith urement (mass/volume)Ordered By: Ki Vazquez on 11-30-2022 Calcium [Mass/Vol] 8.3 mg/dL 8.5-10.1 [facility] Serum or plasma creatinine m easurement (mass/volume)Ordered By: Ki Vazquez on 11-30-2022 Creatinine [Mass/Vol] 0.99 mg/dL 0.70-1.30 [facility] Comment on above: The validity of the calculated GFR & GFRAA in patients over 70 years has not been determined. Clinical correlation is essential. Serum or plasma urea nitroge n measurement (mass/volume)Ordered By: Ki Vazquez on 11-30-2022 Urea nitrogen [Mass/Vol] 14 mg/dL 7-18 [facility] Thin prep Papanicolaou smear with manual screeningOrdered By: Ki Vazquez on 11-30-2022 Thin prep Papanicolaou smear with manual screening 4 5-15 [facility] No Panel Informationon 11-[address] [facility] [address] LUNG SCREEN WO IVCONon [facility] US SOFT TISSUE PELVISon 08-28 [facility] XR Lumbar spine 3 Viewson IMPRESSION: Lumbar spine degenerative changes as described above. Computer Analyst Supervisor: PSCB Transcribe Date/Time: Sep 17 2022 12:06P Dictated by : JESS FELICIANO MD This examination was interpreted and the report reviewed and electronically signed by: JESS FELICIANO MD on Sep 17 2022 12:08PM [facility] DIVISION OF RADIOLOGY * * *Final Report* * * DATE OF EXAM: Sep 17 2022 12:02PM WOX 5228 - XR LUMBAR 3V AP/LAT/L5-S1 / PROCEDURE REASON: multiple diagnoses * * * * Physician Interpretation * * * * EXAM TITLE: XR LUMBAR 3V AP/LAT/L5-S1 EXAM DATE/TIME: 09/17/2022 12:02 PM COMPARISON: None. CLINICAL INDICATION/HISTORY: Low back pain. TECHNIQUE: AP, lateral and cone down lateral views of the lumbar spine are presented. FINDINGS: There are five kzz-yhy-ftlfphn lumbar vertebrae. No acute fracture seen. There is grade 1 L4 on L5 anterolisthesis. L4-5 disc space narrowing is visualized. There is mild osteophyte formation, with facet arthrosis in the lower lumbar spine. Kissing spine seen on lateral view. There appear to be deformities of the L4 posterior element. DIVISION OF RADIOLOGY Provider, [facility] - 09/17/2022 * * *Final Report* * * DATE OF EXAM: Sep 17 2022 12:02PM WOX 5228 - XR LUMBAR 3V AP/LAT/L5-S1 / PROCEDURE REASON: multiple diagnoses * * * * Physician Interpretation * * * * EXAM TITLE: XR LUMBAR 3V AP/LAT/L5-S1 EXAM DATE/TIME: 09/17/2022 12:02 PM COMPARISON: None. CLINICAL INDICATION/HISTORY: Low back pain. TECHNIQUE: AP, lateral and cone down lateral views of the lumbar spine are presented. FINDINGS: There are five fxa-fkl-mfvjrwb lumbar vertebrae. No acute fracture seen. There is grade 1 L4 on L5 anterolisthesis. L4-5 disc space narrowing is visualized. There is mild osteophyte formation, with facet arthrosis in the lower lumbar spine. Kissing spine seen on lateral view. There appear to be deformities of the L4 posterior element. IMPRESSION IMPRESSION: Lumbar spine degenerative changes as described above. Computer Analyst Supervisor: MASON Transcribe Date/Time: Sep 17 2022 12:06P Dictated by : JESS FELICIANO MD This examination was interpreted and the report reviewed and electronically signed by: JESS FELICIANO MD on Sep 17 2022 12:08PM [facility] Radiology Study observation (narrative) [facility] XR Lumbar spine 3 ViewsOrder ed By: Cc Provider on 09-17-2022 [facility] XR Shoulder - right 3 Viewso n 09-10-2022 IMPRESSION: Acromioclavicular joint degenerative changes. Computer Analyst Supervisor: MASON Transcribe Date/Time: Sep 10 2022 4:08P Dictated by : HOLGER HURTADO MD This examination was interpreted and the report reviewed and electronically signed by: HOLGER HURTADO MD on Sep 10 2022 4:09PM [facility] DIVISION OF RADIOLOGY * * *Final Report* * * DATE OF EXAM: Sep 05 2022 7:55PM WOX 5253 - XR SHLDR >/=3V AP/AMIE AP/OTHR RT / PROCEDURE REASON: Acute pain of right shoulder * * * * Physician Interpretation * * * * TITLE: XR SHLDR >/=3V AP/AMIE AP/OTHR RT CLINICAL INDICATION: Pain TECHNIQUE: 4 view radiographic study of the right shoulder COMPARISON: None FINDINGS: No acute fracture or dislocation identified. Severe acromioclavicular joint space narrowing with subchondral cystic change DIVISION OF RADIOLOGY Provider, [facility] - 09/10/2022 * * *Final Report* * * DATE OF EXAM: Sep 05 2022 7:55PM WOX 5253 - XR SHLDR >/=3V AP/AMIE AP/OTHR RT / PROCEDURE REASON: Acute pain of right shoulder * * * * Physician Interpretation * * * * TITLE: XR SHLDR >/=3V AP/AMIE AP/OTHR RT CLINICAL INDICATION: Pain TECHNIQUE: 4 view radiographic study of the right shoulder COMPARISON: None FINDINGS: No acute fracture or dislocation identified. Severe acromioclavicular joint space narrowing with subchondral cystic change IMPRESSION IMPRESSION: Acromioclavicular joint degenerative changes. Computer Analyst Supervisor: PSCB Transcribe Date/Time: Sep 10 2022 4:08P Dictated by : HOLGER HURTADO MD This examination was interpreted and the report reviewed and electronically signed by: HOLGER HURTADO MD on Sep 10 2022 4:09PM EST [facility] XR Shoulder - right 3 ViewsO rdered By: Ccf Provider on 09-10-2022 [facility] XR Shoulder - right 3 Viewso n 09-05-2022 [facility]iology [facility]narrative[facility] CNOVon 08-16-2022 CNOV Office Visit (AGCARDPOB) SHAWNA PRAJAPATI ([id number]) 1965 M Date Time Provider Department 08/16/22 10:20 AM MING ALBARRAN AGCDEAN During your visit today, we recorded the following information about you: Pulse Respiration Blood pressure Weight 51/minute 18/minute 123/74 94.8 kg Height 1.702 m Chely Ramos MA 08/16/2022 10:03 AM Signed Patient denies any cardiac issues or symptoms. Ming Albarran MD 08/16/2022 10:52 AM Signed Chief Complaint: Patient presents with: CARD New Patient Consult: Supervisor Refining ref for cad Shawna Prajapati is a 57 year old male referred to me by Samir Jordan. He has a known past medical history of coronary artery disease status post non-ST elevation myocardial infarction in April 2020 where he received a drug-eluting stent to his LAD and left circumflex coronary arteries in [place], hypertension, hyperlipidemia, COPD, who presents to establish cardiac care. He states that he had lower back surgery last year and is still recovering from that. He is in need of umbilical hernia repair surgery and is here for preop evaluation. He states that he has been somewhat active, but does get significantly short of breath on minimal exertion. He attributes this to his COPD, he denies any chest pain or pressure and denies any orthopnea, paroxysmal nocturnal dyspnea, syncope or presyncope and denies any palpitations or leg swelling. Remains on dual antiplatelet therapy since his stenting procedure a few years ago, and has denied any bleeding or bruising. PAST MEDICAL HISTORY Diagnosis Date Asthma 1990 COPD (chronic obstructive pulmonary disease) ([facility]) 2021 Coronary artery disease COVID-19 07/05/2021 EIC (epidermal inclusion cyst) 11/26/2019 Fibromyalgia 10/28/2016 Folliculitis 11/26/2019 GERD (gastroesophageal reflux disease) 01/27/2019 Hyperlipidemia 07/17/2021 Hypertension 07/17/2021 Irregular heartbeat NSTEMI (non-ST elevation myocardial infarction) ([facility]) 05/03/2020 [place] MARGARITO on CPAP 2012 with nocturnal O2. Pancreatitis, chronic (HCC) 09/07/2019 Seborrheic dermatitis 11/26/2019 Shingles outbreak 09/12/2021 Spinal stenosis, lumbar region with neurogenic claudication 11/20/2015 PAST SURGICAL HISTORY Procedure Laterality Date CC CORONARY STENT 05/04/2020 [facility] to LAD AND Circ, [facility] HERNIA REPAIR HX Right 1964 inguinal HERNIA REPAIR HX Left 1990 inguinal LAMINECTOMY,LUMBAR 11/08/2021 Dr. Cristóbal Maldonado FAMILY HISTORY Adopted: Yes Family history unknown: Yes Social History Tobacco Use Smoking status: Former Packs/day: 3.00 Years: 30.00 Pack years: 90.00 Types: Cigarettes Start date: 1981 Quit date: 05/02/2020 Years since quittin.2 Smokeless tobacco: Former Types: Snuff Quit date: 05/02/2020 Tobacco comments: Age 16-05/02/2019 Vaping Use Vaping Use: Never used Substance Use Topics Alcohol use: Not Currently Drug use: Never Current Outpatient Medications Medication Sig egjawqyoxi-ahhhnmba-ke rmoterol (BREZTRI) 160-9-4.8 mcg/actuation HFA aerosol inhaler Inhale 2 Puffs as instructed twice daily. albuterol HFA (PROVENTIL HFA, VENTOLIN HFA) 90 mcg/actuation inhaler Inhale 2 Puffs as instructed every 4 hours as needed for wheezing/shortness of breath. fluticasone-umeclidin- vilanter (TRELEGY ELLIPTA) 200-62.5-25 mcg inhalation powder Inhale 1 Puff as instructed once daily. aspirin, enteric coated (ASPIRIN, ENTERIC COATED) 81 mg EC tablet Take 81 mg by mouth once daily. atorvastatin (LIPITOR) 80 mg tablet Take 80 mg by mouth once daily. lisinopril (ZESTRIL, PRINIVIL) 20 mg tablet Take 20 mg by mouth once daily. albuterol (PROVENTIL) 2.5 mg /3 mL (0.083 %) nebulizer solution Use 3 mL via nebulizer every 4 hours as needed for wheezing/shortness of breath. Use over 5-15minutes. metoprolol tartrate, short acting, (LOPRESSOR) 25 mg tablet Take 1 tablet by mouth twice daily. No current facility-administered medications for this visit. ALLERGIES Allergen Reactions Cabbage Other: See Comments dysphagia Lettuce Other: See Comments dysphagia Onion Extract Vomiting Garlic Oil GI Upset Cardiac Testing Heart catheterization done in 04/2020: Operative findings: Completed the left heart cath using right radial approach for this nice 54-year-old gentleman who was admitted with acute coronary syndrome. He was found to have a critical stenosis of his proximal LAD at the bifurcation with a diagonal as well as high-grade stenosis involving the proximal circumflex which was a large dominant system. RCA was small nonsignificant system. He underwent complex but successful angioplasty and stenting of a proximal LAD with diagonal bifurcation. Both LAD and diagonal were wired and ballooned using 2.5 mm balloon. Subsequently 3.0 x 15 mm stent was placed in the proximal (more content not included)... Normal [facility] CNPNon 08-16-2022 CNPN Telephone (AGCARDPOB ) SHAWNA PRAJAPATI ([id number]) 1965 M Date Time Provider Department 08/16/22 MING ALBARRAN AGCARDPOB During your visit today, we recorded the following information about you: Perla Flynn 08/16/2022 2:01 PM Signed Appointment reminder and NM Stress Test preparation instructions have been mailed to the patient's home address on file. Allergies As of Date: 08/16/2022 Noted Allergy Reaction CABBAGE 11/09/2021 14 - Other: See Comments Comments: dysphagia LETTUCE 11/09/2021 14 - Other: See Comments Comments: dysphagia ONION EXTRACT 11/09/2021 11 - Vomiting GARLIC OIL 07/02/2022 8 - GI Upset Date Reviewed: 08/16/2022 Reviewed by: Chely Ramos MA - Fully Assessed Reason for Visit: Radiology Pre Procedure Instructions [1506] Prescriptions as of 08/16/2022 - kdebsjiayt-sfbktfhz-nz rmoterol (BREZTRI) 160-9-4.8 mcg/actuation HFA aerosol inhaler Inhale 2 Puffs as instructed twice daily. - albuterol HFA (PROVENTIL HFA, VENTOLIN HFA) 90 mcg/actuation inhaler Inhale 2 Puffs as instructed every 4 hours as needed for wheezing/shortness of breath. - fluticasone-umeclidin- vilanter (TRELEGY ELLIPTA) 200-62.5-25 mcg inhalation powder Inhale 1 Puff as instructed once daily. - aspirin, enteric coated (ASPIRIN, ENTERIC COATED) 81 mg EC tablet Take 81 mg by mouth once daily. - atorvastatin (LIPITOR) 80 mg tablet Take 80 mg by mouth once daily. - lisinopril (ZESTRIL, PRINIVIL) 20 mg tablet Take 20 mg by mouth once daily. - albuterol (PROVENTIL) 2.5 mg /3 mL (0.083 %) nebulizer solution Use 3 mL via nebulizer every 4 hours as needed for wheezing/shortness of breath. Use over 5-15minutes. - metoprolol tartrate, short acting, (LOPRESSOR) 25 mg tablet Take 1 tablet by mouth twice daily. Problem List As Of Date 08/16/2022 Noted Resolved EIC (epidermal inclusion cyst) [L72.0] 11/26/2019 05/17/2022 Folliculitis [L73.9] 11/26/2019 05/17/2022 Seborrheic dermatitis [L21.9] 11/26/2019 Asthma [J45.909] 1990 COPD (chronic obstructive pulmonary disease) (H*2021 MARGARITO on CPAP [G47.33, Z99.89] 2012 Hyperlipidemia [E78.5] 07/17/2021 Hypertension [I10] 07/17/2021 Coronary artery disease involving pechanga heart *08/15/2022 Encounter Status:Closed by PERLA FLYNN on 08/16/22 Normal [facility] CT ABD/PEL W IVCONon 023 [facility] Absolute lymphocyte countOrd ered By: Dr. Alvarado on 06-15-2022 Lymphocytes Auto (Unsp spec) [#/Vol] 2.10 10*3/uL 0.83-4.51 [facility] Basophil percentageOrdered B y: Dr. Alvarado on 06-15-2022 Basophils/100 WBC (Bld) 1.2 % 0-1 [facility] Bilirubin [Mass/Vol] 0.60 mg/dL 0.20-1.00 [facility] Comment on above: For patients on eltr ombopag therapy, use of Dimension [place] TBIL is not recommended. Chloride [Moles/Vol] 106 mmol/L 98-107 [facility] Eosinophils/100 WBC (Bld) 3.5 % 0-5 [facility] Glucose [Mass/Vol] 84 mg/dL 74-106 [facility] Neutrophils (Bld) [#/Vol] 5.1 10*3/uL 2.0-7.7 [facility] Neutrophils/100 WBC (Bld) 57.2 % 47-70 [facility] Potassium [Moles/Vol] 4.1 mmol/L 3.5-5.1 [facility] Protein [Mass/Vol] 7.1 g/dL 6.4-8.2 [facility] Sodium [Moles/Vol] 143 mmol/L 136-145 [facility] WBC (Bld) [#/Vol] 8.9 10*3/uL 4.4-11.0 [facility] Blood erythrocytes count (nu mber/volume)Ordered By: Dr. Alvarado on 06-15-2022 RBC (Bld) [#/Vol] 4.63 10*6/uL 4.6-6.2 [facility] Blood hemoglobin measurement (mass/volume)Ordered By: Dr. Alvarado on 06-15-2022 Hemoglobin (Bld) [Mass/Vol] 14.0 g/dL 13.0-16.5 [facility] Blood lymphocytes/100 leukoc ytesOrdered By: Dr. Alvarado on 06-15-2022 Lymphocytes/100 WBC (Bld) 23.6 % 19-41 [facility] Blood monocytes/100 leukocyt esOrdered By: Dr. Alvarado on 06-15-2022 Monocytes/100 WBC (Bld) 14.2 % 0-10 [facility] Blood platelet mean volumeOr dered By: Dr. Alvarado on 06-15-2022 Platelet mean volume (Bld) [Entitic vol] 10.1 fL 6.2-12.0 [facility] Determination of erythrocyte mean corpuscular volume (MCV)Ordered By: Dr. Alvarado on 06-15-2022 MCV (RBC) [Entitic vol] 99.8 fL 80-94 [facility] Hematocrit Auto (Bld) [Volum e fraction]Ordered By: Dr. Alvarado on 06-15-2022 Hematocrit (Bld) [Volume fraction] 46.2 % 40-54 [facility] INR in Blood by Coagulation assayOrdered By: Dr. Alvarado on 06-15-2022 INR Coag (Bld) [Relative time] 1.0 {INR} [facility] Laboratory - Chemistry and C hemistry - challengeOrdered By: Dr. Alvarado on 06-15-2022 ALP [Catalytic activity/Vol] 147 U/L 45-117 [facility] ALT [Catalytic activity/Vol] 32 U/L 16-61 [facility] CO2 [Moles/Vol] 33.0 mmol/L 21.0-32.0 [facility] Globulin (S) [Mass/Vol] 3.7 g/dL 2.2-4.2 [facility] Urea nitrogen/Creatinine [Mass ratio] 15.1 mg/mg 10-20 [facility] Laboratory - CoagulationOrde red By: Dr. Alvarado on 06-15-2022 aPTT Coag (Bld) [Time] 27.8 s 24.1-36.2 [facility] PT Coag (PPP) [Time] 13.1 s 11.7-14.9 [facility] Laboratory - Hematology and Cell countsOrdered By: Dr. Alvarado on 06-15-2022 Erythrocyte distribution width (RBC) [Entitic vol] 50.4 fL 35.1-43.9 [facility] Erythrocyte distribution width (RBC) [Ratio] 13.9 % 11.6-14.6 [facility] Immature granulocytes/100 WBC (Bld) 0.300 % 0.0-0.9 [facility] Comment on above: IG% - Immature Granu locytes (promyelocytes, myelocytes and metamyelocytes) > 1% indicates that a LEFT SHIFT is Present. MCH (RBC) [Entitic mass] 30.2 pg 27.0-32.0 [facility] Nucleated RBC/100 WBC (Bld) [Ratio] 0 % 0-5 [facility] MCHC Auto (RBC) [Mass/Vol]Or dered By: Dr. Alvarado on 06-15-2022 MCHC (RBC) [Mass/Vol] 30.3 g/dL 32-36 [facility] No Panel InformationOrdered By: Dr. Alvarado on 06-15-2022 Estimated Creatinine Clearance Calc 76.97 ml/min [facility] Estimated GFR (MDRD) Amer 100 mL/min >60 [facility] Comment on above: GFR Calc Estimated GFR (MDRD) Non-Af Amer 82 mL/min >60 [facility] Comment on above: Non- GFR Calc Platelets bldOrdered By: Dr. Alvarado on 06-15-2022 Platelets (Bld) [#/Vol] 283 10*3/uL 150-450 [facility] Serum or plasma albumin edith urement (mass/volume)Ordered By: Dr. Alvarado on 06-15-2022 Albumin [Mass/Vol] 3.4 g/dL 3.2-5.0 [facility] Serum or plasma albumin/glob ulin mass ratioOrdered By: Dr. Alvarado on 06-15-2022 Albumin/Globulin [Mass ratio] 0.9 {ratio} 0.9-2.4 [facility] Serum or plasma calcium edith urement (mass/volume)Ordered By: Dr. Alvarado on 06-15-2022 Calcium [Mass/Vol] 9.2 mg/dL 8.5-10.1 [facility] Serum or plasma creatinine m easurement (mass/volume)Ordered By: Dr. Alvarado on 06-15-2022 Creatinine [Mass/Vol] 0.99 mg/dL 0.70-1.30 [facility] Comment on above: The validity of the calculated GFR & GFRAA in patients over 70 years has not been determined. Clinical correlation is essential. Serum or plasma urea nitroge n measurement (mass/volume)Ordered By: Dr. Alvarado on 02-18-2023 Urea nitrogen [Mass/Vol] 15 mg/dL 7-18 [facility] Thin prep Papanicolaou smear with manual screeningOrdered By: Dr. Alvarado on 06-15-2022 Thin prep Papanicolaou smear with manual screening 17 U/L 15-37 [facility] Thin prep Papanicolaou smear with manual screening 4 5-15 [facility] NITRIC OXIDE, EXHALEDon 04-30 [facility] SPIROMETRY WITH DILATOR IF O BSTRUCTEDon 05-28-2022 IDX52-27% POST (L/S) 0.54 L/S [facility] DTS76-03% PRE (L/S) 0.32 L/S [facility] FEV1 PRE (L) 1.23 L [facility] FEV1/FVC POST (%) 44 % [facility] FEV1/FVC PRE (%) 42 % [facility] FEV1_POST (L) 1.43 L [facility] FVC POST (L) 3.22 L [facility] FVC PRE (L) 2.94 L [facility] PEF POST (L/S) 3.39 L/S [facility] PEF PRE (L/S) 2.99 L/S [facility] Absolute lymphocyte countOrd ered By: Dr. Zaragoza on 02-18-2022 Lymphocytes Auto (Unsp spec) [#/Vol] 1.34 10*3/uL 0.83-4.51 [facility] Basophil percentageOrdered B y: Dr. Zaragoza on 02-18-2022 C. trachomatis DNA STEPHEN+probe Ql (Unsp spec) Negative Negative [facility] Basophils/100 WBC (Bld) 0.8 % 0-1 [facility] Chloride [Moles/Vol] 109 mmol/L 98-107 [facility] Eosinophils/100 WBC (Bld) 1.4 % 0-5 [facility] Glucose [Mass/Vol] 108 mg/dL 74-106 [facility] Comment on above: Fasting Glucose resu lt from 100 to 125 mg/dL suggests IMPAIRED HOMEOSTASIS per A.D.A. criteria. Neutrophils (Bld) [#/Vol] 8.5 10*3/uL 2.0-7.7 [facility] Neutrophils/100 WBC (Bld) 72.0 % 47-70 [facility] Potassium [Moles/Vol] 4.3 mmol/L 3.5-5.1 [facility] Sodium [Moles/Vol] 143 mmol/L 136-145 [facility] WBC (Bld) [#/Vol] 11.8 10*3/uL 4.4-11.0 [facility] Blood erythrocytes count (nu mber/volume)Ordered By: Dr. Zaragoza on 02-18-2022 RBC (Bld) [#/Vol] 4.77 10*6/uL 4.6-6.2 [facility] Blood hemoglobin measurement (mass/volume)Ordered By: Dr. Zaragoza on 02-18-2022 Hemoglobin (Bld) [Mass/Vol] 14.3 g/dL 13.0-16.5 [facility] Blood lymphocytes/100 leukoc ytesOrdered By: Dr. Zaragoza on 02-18-2022 Lymphocytes/100 WBC (Bld) 11.4 % 19-41 [facility] Blood manual differential co mment interpretation (narrative result)Ordered By: Dr. Zaragoza on 02-18-2022 Manual differential comment Fred (Bld) [Interp] SCANNED [facility] Comment on above: MONOCYTOSIS NOTED Blood monocytes/100 leukocyt esOrdered By: Dr. Zaragoza on 02-18-2022 Monocytes/100 WBC (Bld) 14.1 % 0-10 [facility] Blood platelet mean volumeOr dered By: Dr. Zaragoza on 02-18-2022 Platelet mean volume (Bld) [Entitic vol] 10.0 fL 6.2-12.0 [facility] Determination of erythrocyte mean corpuscular volume (MCV)Ordered By: Dr. Zaragoza on 02-18-2022 MCV (RBC) [Entitic vol] 96.4 fL 80-94 [facility] Hematocrit Auto (Bld) [Volum e fraction]Ordered By: Dr. Zaragoza on 02-18-2022 Hematocrit (Bld) [Volume fraction] 46.0 % 40-54 [facility] Influenza virus A and B and SARS-CoV-2 (COVID-19) Ag panel - Upper respiratory specimOrdered By: Dr. Zaragoza on 02-18-2022 SARS-CoV-2 (COVID-19) RNA STEPHEN+probe Ql (Resp) [facility] Laboratory - Chemistry and C hemistry - challengeOrdered By: Dr. Zaragoza on 02-18-2022 CO2 [Moles/Vol] 29.0 mmol/L 21.0-32.0 [facility] Urea nitrogen/Creatinine [Mass ratio] 16.0 mg/mg 10- [facility] Laboratory - Hematology and Cell countsOrdered By: Dr. Zaragoza on 02-18-2022 Erythrocyte distribution width (RBC) [Entitic vol] 47.0 fL 35.1-43.9 [facility] Erythrocyte distribution width (RBC) [Ratio] 13.2 % 11.6-14.6 [facility] Immature granulocytes/100 WBC (Bld) 0.300 % 0.0-0.9 [facility] Comment on above: IG% - Immature Granu locytes (promyelocytes, myelocytes and metamyelocytes) > 1% indicates that a LEFT SHIFT is Present. MCH (RBC) [Entitic mass] 30.0 pg 27.0-32.0 [facility] Nucleated RBC/100 WBC (Bld) [Ratio] 0 % 0-5 [facility] MCHC Auto (RBC) [Mass/Vol]Or dered By: Dr. Zaragoza on 02-18-2022 MCHC (RBC) [Mass/Vol] 31.1 g/dL 32-36 [facility] Neisseria gonorrhoeae detect ion by PCROrdered By: Dr. Zaragoza on 02-18-2022 N. gonorrhoeae DNA STEPHEN+probe Ql (Cervical mucus) Negative Negative [facility] No Panel InformationOrdered By: Dr. Zaragoza on 02-18-2022 Estimated Creatinine Clearance Calc 78.85 ml/min [facility] Estimated GFR (MDRD) Amer 99 mL/min >60 [facility] Comment on above: GFR Calc Estimated GFR (MDRD) Non-Af Amer 82 mL/min >60 [facility] Comment on above: Non- GFR Calc Platelets bldOrdered By: Dr. Zaragoza on 02-18-2022 Platelets (Bld) [#/Vol] 284 10*3/uL 150-450 [facility] Review by pathologiston 01-27 Pathologist review Fred (Unsp spec) [Interp] Georgiana ballesteros [facility] Work Phone: Review by pathologistOrdered By: Dr. Zaragoza on 02-18-2022 Pathologist review Fred (Unsp spec) [Interp] Reviewed [facility] Comment on above: Previous reported re sult: Georgiana ballesteros Edited by: RGOOD on 02/19/22:1513Neutrophilic leukocytosis.Clinical correlation suggested.Cole Dominguez D.O. 02/19/22 AMENDED REPORT 02/19/22 1513 PATH REV previously reported as: Georgiana ballesteros Serum or plasma calcium edith urement (mass/volume)Ordered By: Dr. Zaragoza on 02-18-2022 Calcium [Mass/Vol] 9.4 mg/dL 8.5-10.1 [facility] Serum or plasma creatinine m easurement (mass/volume)Ordered By: Dr. Zaragoza on 02-18-2022 Creatinine [Mass/Vol] 1.00 mg/dL 0.70-1.30 [facility] Comment on above: The validity of the calculated GFR & GFRAA in patients over 70 years has not been determined. Clinical correlation is essential. Serum or plasma urea nitroge n measurement (mass/volume)Ordered By: Dr. Zaragoza on 02-18-2022 Urea nitrogen [Mass/Vol] 16 mg/dL 7-18 [facility] Thin prep Papanicolaou smear with manual screeningOrdered By: Dr. Zaragoza on 02-18-2022 Thin prep Papanicolaou smear with manual screening 5 -15 [facility] GC/CHLAM AMPLIFICATION URINE [CCL]on 01-10-2022 GC Amplification See Below Normal Negative for Neisseria go [facility] Comment on above: Result Comment: GC A MPLIFICATION Negative for Neisseria gonorrhoeae by amplification CHLAMYDIA AMPLIFICATION Negative for Chlamydia trachomatis by amplification SOURCE: URINE [facility] [address] [place] [id number] Jose Price III, M.D. [id number] Performed By: #### [id number] #### [facility],[address] [place] [address] OPERATIVE PROCEDURESon 12-12 OPERATIVE PROCEDURES [facility] OPERATIVE REPORT NAME ACCOUNT SEX AGE ADMIT DISCHARGE PT MED. RECORD# NUMBER DATE DATE TYPE VICTORINA [id number] Deandre 56 11/08/21 11/08/21 2 SHAWNA Gabriela [id number] ROOM: [facility] DATE OF : 1965 DICTATING PHYSICIAN: Imer Maldonado DATE OF SURGERY: November 08, 2021 SURGEON: Imer Maldonado DO ANIMAL KEEPER HEAD: ANESTHESIOLOGIST: ANESTHETIC: General. PREOPERATIVE DIAGNOSIS: Lumbar stenosis L4-5 with spondylosis. POSTOPERATIVE DIAGNOSES: (1) L4-5 stenosis with spondylosis. (2) Dural tear. OPERATION PERFORMED: L4 laminectomy decompression. COMPLICATIONS: ESTIMATED BLOOD LOSS: 25. IV FLUIDS: 1 liter. STATEMENT OF MEDICAL NECESSITY: The patient is a 56-year-old male with intractable back and leg pain. Imaging studies confirmed the above diagnosis. He has failed conservative treatment to include medications, physical therapy, and injections. The patient opted for operative intervention understanding the risks to include, but not limited to bleeding, infection, damage to nerves, arteries, and veins, possibility of spinal fluid leak, continued pain, need for further surgery, deep venous thrombosis, pulmonary embolism, heart attack, risk of stroke, or . DESCRIPTION OF OPERATION: The patient was identified in the preoperative holding area. There he received preoperative IV antibiotics, Ancef, and was then transferred to the operative suite. Once in the operative suite after general endotracheal anesthesia was established, the patient was transferred to the [place] operating table in the prone position. All bony prominences were padded accordingly. The lumbar spine was prepped and draped in the standard surgical fashion. A midline incision was made and Page 1 of 2 SHAWNA PRAJAPATI Operative Report SHAWNA PRAJAPATI : 1965 taken to the level of the lumbodorsal fascia. The fascia was divided and subperiosteal dissection was taken down to the level of the bilateral L4-5 facet joints. Marlyn retractors were placed. At this point, a series of Kerrison and rongeurs were used to perform laminectomy removing the spinous process and lamina from the midline. At this point, a dural tear was noted at the junction of the dura and axilla between the right L4-5 nerve roots. The incision was thoroughly irrigated. DuraGen was placed over the dural tear. Tisseel was placed over the dura as a hemostatic agent. The fascia was closed with #1 Vicryl, subcutaneous with 2-0 Vicryl, and the skin was closed with 2-0 Nylon. A sterile dressing was applied with 4x4's, ABD, and tape. Sponge, instrument, and needle counts were correct at the end of the case. The patient was extubated, and taken to the PACU without incident. Dictated By: Imer Maldonado DO 11/12/21 08:39 JOB #: [id number] Transcribed By: am 11/12/21 09:05 Electronically signed by: Mahesh Maldonado DO 12/12/21 11:42 Page 2 of 2 SHAWNA PRAJAPATI Operative Report Normal [facility] Absolute lymphocyte counton 11-13-2021 Lymphocytes Auto (Unsp spec) [#/Vol] 1.31 10*3/uL 0.83-4.51 [facility] Work Phone: Basophil percentageon 2021 Basophils/100 WBC (Bld) 1.0 % 0-1 [facility] Work Phone: Chloride [Moles/Vol] 101 mmol/L 98-107 [facility] Work Phone: Eosinophils/100 WBC (Bld) 3.1 % 0-5 [facility] Work Phone: Glucose [Mass/Vol] 90 mg/dL 74-106 [facility] Work Phone: Neutrophils (Bld) [#/Vol] 5.6 10*3/uL 2.0-7.7 [facility] Work Phone: Neutrophils/100 WBC (Bld) 62.8 % 47-70 [facility] Work Phone: Potassium [Moles/Vol] 4.3 mmol/L 3.5-5.1 [facility] Work Phone: Sodium [Moles/Vol] 137 mmol/L 136-145 [facility] Work Phone: WBC (Bld) [#/Vol] 8.8 10*3/uL 4.4-11.0 [facility] Work Phone: Blood erythrocytes count (nu mber/volume)on 11-13-2021 RBC (Bld) [#/Vol] 4.61 10*6/uL 4.6-6.2 [facility] Work Phone: Blood hemoglobin measurement (mass/volume)on 11-13-2021 Hemoglobin (Bld) [Mass/Vol] 13.8 g/dL 13.0-16.5 [facility] Work Phone: Blood lymphocytes/100 leukoc yteson 11-13-2021 Lymphocytes/100 WBC (Bld) 14.8 % 19-41 [facility] Work Phone: [phone] Blood manual differential co mment interpretation (narrative result)on 11-13-2021 Manual differential comment Fred (Bld) [Interp] SCANNED [facility] Work Phone: Comment on above: MONOCYTOSIS NOTED Blood monocytes/100 leukocyt eson 11-13-2021 Monocytes/100 WBC (Bld) 18.0 % 0-10 [facility] Work Phone: Blood platelet mean volumeon 11-13-2021 Platelet mean volume (Bld) [Entitic vol] 10.0 fL 6.2-12.0 [facility] Work Phone: [phone] Determination of erythrocyte mean corpuscular volume (MCV)on 11-13-2021 MCV (RBC) [Entitic vol] 94.4 fL 80-94 [facility] Work Phone: [phone] Hematocrit Auto (Bld) [Volum e fraction]on 11-13-2021 Hematocrit (Bld) [Volume fraction] 43.5 % 40-54 [facility] Work Phone: [phone] Laboratory - Chemistry and C hemistry - challengeon 11-13-2021 CO2 [Moles/Vol] 30.0 mmol/L 21.0-32.0 [facility] Work Phone: [phone] Urea nitrogen/Creatinine [Mass ratio] 24.7 mg/mg 10-20 [facility] Work Phone: Laboratory - Hematology and Cell countson 11-13-2021 Erythrocyte distribution width (RBC) [Entitic vol] 47.3 fL 35.1-43.9 [facility] Work Phone: [phone] Erythrocyte distribution width (RBC) [Ratio] 13.6 % 11.6-14.6 [facility] Work Phone: [phone] Immature granulocytes/100 WBC (Bld) 0.300 % 0.0-0.9 [facility] Work Phone: [phone] Comment on above: IG% - Immature Granu locytes (promyelocytes, myelocytes and metamyelocytes) > 1% indicates that a LEFT SHIFT is Present. MCH (RBC) [Entitic mass] 29.9 pg 27.0-32.0 [facility] Work Phone: [phone] Nucleated RBC/100 WBC (Bld) [Ratio] 0 % 0-5 [facility] Work Phone: [phone] MCHC Auto (RBC) [Mass/Vol]on 11-13-2021 MCHC (RBC) [Mass/Vol] 31.7 g/dL 32-36 [facility] Work Phone: [phone] No Panel Informationon 11-13 Estimated Creatinine Clearance Calc 84.78 ml/min [facility] Work Phone: [phone] Estimated GFR (MDRD) Amer 107 mL/min >60 [facility] Work Phone: [phone] Comment on above: GFR Calc Estimated GFR (MDRD) Non-Af Amer 89 mL/min >60 [facility] Work Phone: [phone] Comment on above: Non- GFR Calc Platelets bldon 11-13-2021 Platelets (Bld) [#/Vol] 295 10*3/uL 150-450 [facility] Work Phone: [phone] Serum or plasma calcium edith urement (mass/volume)on 11-13-2021 Calcium [Mass/Vol] 8.8 mg/dL 8.5-10.1 [facility] Work Phone: [phone] Serum or plasma creatinine m easurement (mass/volume)on 11-13-2021 Creatinine [Mass/Vol] 0.93 mg/dL 0.70-1.30 [facility] Work Phone: Comment on above: The validity of the calculated GFR & GFRAA in patients over 70 years has not been determined. Clinical correlation is essential. Serum or plasma urea nitroge n measurement (mass/volume)on 11-13-2021 Urea nitrogen [Mass/Vol] 23 mg/dL 11-12 [facility] Work Phone: Thin prep Papanicolaou smear with manual screeningon 11-13-2021 Thin prep Papanicolaou smear with manual screening 09-09 [facility] Work Phone: [phone] Review by pathologiston 10-26 Pathologist review Fred (Unsp spec) [Interp] Reviewed [facility] Work Phone: Comment on above: Previous reported re sult: Georgiana ballesteros Edited by: BLAINE on 11/12/21:1200Mature monocytosis present.Clinical correlation suggested.Cole Dominguez D.O. 11/12/21 AMENDED REPORT 11/12/21 1200 PATH REV previously reported as: August lesli Absolute lymphocyte counton 11-09-2021 Lymphocytes Auto (Unsp spec) [#/Vol] 1.90 10*3/uL 0.83-4.51 [facility] Work Phone: Basophil percentageon 2021 Basophils/100 WBC (Bld) 0.5 % 0-1 [facility] Work Phone: Chloride [Moles/Vol] 108 mmol/L 98-107 [facility] Work Phone: Eosinophils/100 WBC (Bld) 0.7 % 0-5 [facility] Work Phone: Glucose [Mass/Vol] 102 mg/dL 74-106 [facility] Work Phone: Comment on above: Fasting Glucose resu lt from 100 to 125 mg/dL suggests IMPAIRED HOMEOSTASIS per A.D.A. criteria. Neutrophils (Bld) [#/Vol] 8.4 10*3/uL 2.0-7.7 [facility] Work Phone: Neutrophils/100 WBC (Bld) 63.0 % 47-70 [facility] Work Phone: Potassium [Moles/Vol] 4.0 mmol/L 3.5-5.1 [facility] Work Phone: Sodium [Moles/Vol] 142 mmol/L 136-145 [facility] Work Phone: WBC (Bld) [#/Vol] 13.4 10*3/uL 4.4-11.0 [facility] Work Phone: Blood erythrocytes count (nu mber/volume)on 11-09-2021 RBC (Bld) [#/Vol] 4.82 10*6/uL 4.6-6.2 [facility] Work Phone: Blood hemoglobin measurement (mass/volume)on 11-09-2021 Hemoglobin (Bld) [Mass/Vol] 14.6 g/dL 13.0-16.5 [facility] Work Phone: Blood lymphocytes/100 leukoc yteson 11-09-2021 Lymphocytes/100 WBC (Bld) 14.2 % 19-41 [facility] Work Phone: Blood manual differential co mment interpretation (narrative result)on 11-09-2021 Manual differential comment Fred (Bld) [Interp] SEE COMMENT [facility] Work Phone: Comment on above: MONOCYTOSIS NOTED Blood monocytes/100 leukocyt eson 11-09-2021 Monocytes/100 WBC (Bld) 21.3 % 0-10 [facility] Work Phone: Blood platelet adequacy dete ction by light microscopyon 11-09-2021 Platelets LM Ql (Bld) ADEQUATE ADEQ [facility] Work Phone: Blood platelet mean volumeon 11-09-2021 Platelet mean volume (Bld) [Entitic vol] 9.8 fL 6.2-12.0 [facility] Work Phone: Determination of erythrocyte mean corpuscular volume (MCV)on 11-09-2021 MCV (RBC) [Entitic vol] 96.5 fL 80-94 [facility] Work Phone: [phone] Hematocrit Auto (Bld) [Volum e fraction]on 11-09-2021 Hematocrit (Bld) [Volume fraction] 46.5 % 40-54 [facility] Work Phone: [phone] Laboratory - Chemistry and C hemistry - challengeon 11-09-2021 CO2 [Moles/Vol] 31.0 mmol/L 21.0-32.0 [facility] Work Phone: [phone] Urea nitrogen/Creatinine [Mass ratio] 17.8 mg/mg 10-20 [facility] Work Phone: [phone] Laboratory - Hematology and Cell countson 11-09-2021 Anisocytosis Ql (Bld) RARE [facility] Work Phone: [phone] Erythrocyte distribution width (RBC) [Entitic vol] 48.6 fL 35.1-43.9 [facility] Work Phone: [phone] Erythrocyte distribution width (RBC) [Ratio] 13.6 % 11.6-14.6 [facility] Work Phone: [phone] Immature granulocytes/100 WBC (Bld) 0.300 % 0.0-0.9 [facility] Work Phone: [phone] Comment on above: IG% - Immature Granu locytes (promyelocytes, myelocytes and metamyelocytes) > 1% indicates that a LEFT SHIFT is Present. MCH (RBC) [Entitic mass] 30.3 pg 27.0-32.0 [facility] Work Phone: [phone] Nucleated RBC/100 WBC (Bld) [Ratio] 0 % 0-5 [facility] Work Phone: [phone] MCHC Auto (RBC) [Mass/Vol]on 11-09-2021 MCHC (RBC) [Mass/Vol] 31.4 g/dL 32-36 [facility] Work Phone: [phone] Macrocytes detectionon 11-09 Macrocytes Ql (Bld) RARE [facility] Work Phone: No Panel Informationon 11-09 Estimated Creatinine Clearance Calc 78.07 ml/min [facility] Work Phone: Estimated GFR (MDRD) Amer 98 mL/min >60 [facility] Work Phone: Comment on above: GFR Calc Estimated GFR (MDRD) Non-Af Amer 81 mL/min >60 [facility] Work Phone: Comment on above: Non- GFR Calc Platelets bldon 11-09-2021 Platelets (Bld) [#/Vol] 280 10*3/uL 150-450 [facility] Work Phone: RBC morphologyon 11-09-2021 RBC morphology finding Nom (Bld) N CHROM NORMAL NORM C&C [facility] Work Phone: Review by pathologiston 10-26 Pathologist review Fred (Unsp spec) [Interp] May foll [facility] Work Phone: Serum or plasma calcium edith urement (mass/volume)on 11-09-2021 Calcium [Mass/Vol] 8.8 mg/dL 8.5-10.1 [facility] Work Phone: Serum or plasma creatinine m easurement (mass/volume)on 11-09-2021 Creatinine [Mass/Vol] 1.01 mg/dL 0.70-1.30 [facility] Work Phone: Comment on above: The validity of the calculated GFR & GFRAA in patients over 70 years has not been determined. Clinical correlation is essential. Serum or plasma urea nitroge n measurement (mass/volume)on 11-09-2021 Urea nitrogen [Mass/Vol] 18 mg/dL 7-18 [facility] Work Phone: Thin prep Papanicolaou smear with manual screeningon 11-09-2021 Thin prep Papanicolaou smear with manual screening 3 5-15 [facility] Work Phone: [phone] APTTon 10-23-2021 aPTT Coag (Bld) [Time] 31.6 s Normal 25.4 - 38.4 [facility] Comment on above: Performed By: #### 2 [id number] #### [facility],[address] [place] [address] 88402 BMP with eGFRon 10-23-2021 AGE 56 years Normal [facility] Comment on above: Performed By: #### 2 97103 #### [facility],[address] [place] [address] Anion gap [Moles/Vol] 11 mmol/L Normal 10 - 20 [facility] Comment on above: Performed By: #### 2 94607 #### [facility],[address] [place] [address] 61612 BMP with eGFR Normal [facility] Comment on above: Result Comment: BASI C METABOLIC PANEL Performed By: #### 2 80122 #### [facility],[address] [place], [place] [id number] Calcium [Mass/Vol] 8.8 mg/dL Normal 8.5 - 10.1 [facility] Comment on above: Performed By: #### 2 05292 #### [facility],[address] [place], [place] [address] Chloride [Moles/Vol] 106 mmol/L Normal 98 - 107 [facility] Comment on above: Performed By: #### 2 15737 #### [facility],[address] [place] [address] 15378 CO2 [Moles/Vol] 29.6 mmol/L Normal 21.0 - 32.0 [facility] Comment on above: Performed By: #### 2 60043 #### [facility],[address] [place] [address]4946 Creatinine [Mass/Vol] 0.98 mg/dL Normal 0.70 - 1.30 [facility] Comment on above: Performed By: #### 2 73194 #### [facility],[address] [place] [address] 45539 GFR/1.73 sq M.predicted among non-blacks MDRD (S/P/Bld) [Vol rate/Area] mL/min/{1.73_m2} Normal 60 - 999 [facility] Comment on above: Performed By: #### 2 43613 #### [facility],[address] [place] [address] Result Comment: ACCO RDING TO THE NATIONAL KIDNEY DISEASE EDUCATION PROGRAM(NKDE), A NORMAL eGFR IS A VALUE GREATER THAN OR EQUAL TO 60 ML/MIN/1.73 SQ METERS. CHRONIC KIDNEY DISEASE: <60mL/MIN/1.73 SQ METERS KIDNEY FAILURE: <15mL/MIN/1.73 SQ METERS THIS TEST SHOULD ONLY BE USED FOR PATIENTS 18 YEARS OF AGE AND OLDER. Glucose [Mass/Vol] 82 mg/dL Normal 74 - 106 [facility] Comment on above: Performed By: #### 2 43145 #### [facility],[address] [place] [address]2801 Potassium [Moles/Vol] 4.1 mmol/L Normal 3.5 - 5.1 [facility] Comment on above: Performed By: #### 2 01953 #### [facility],[address] [place] [address] 85977 Sodium [Moles/Vol] 142 mmol/L Normal 136 - 145 [facility] Comment on above: Performed By: #### 2 45281 #### [facility],[address] [place] [address] 03862 Urea nitrogen [Mass/Vol] 17 mg/dL Normal 7 - 18 [facility] Comment on above: Performed By: #### 2 29053 #### [address] [address] CBC + DIFFon 10-23-2021 Baso # 0.10 x10EE3/UL Normal 0.00 - 0.10 [facility] Comment on above: Performed By: #### 2 56688 #### [facility],[address] [place] [address] 53087 Basophils/100 WBC (Bld) 1.5 % Normal 0.0 - 2.0 [facility] Comment on above: Performed By: #### 2 04650 #### [facility],[address] [place] [address] CBC + DIFF Normal [facility] Comment on above: Result Comment: CBC- COMPLETE BLOOD COUNT Performed By: #### 2 93762 #### [facility],[address] [place] [address] EO # 0.20 x10EE3/UL Normal 0.00 - 0.50 [facility] Comment on above: Performed By: #### 2 61641 #### [facility],[address] [place] [address] 67636 Eosinophils/100 WBC (Bld) 2.6 % Normal 0.0 - 7.0 [facility] Comment on above: Performed By: #### 2 52625 #### [facility],[address] [place] [address] Erythrocyte distribution width (RBC) [Ratio] 14.8 % Normal 12.0 - 15.6 [facility] Comment on above: Performed By: #### 2 83038 #### [facility],[address] [place], [place] [address] Hematocrit (Bld) [Volume fraction] 46.2 % Normal 40.0 - 52.0 [facility] Comment on above: Performed By: #### 2 04992 #### [facility],[address] [place] [address]227 Hemoglobin (Bld) [Mass/Vol] 14.8 g/dL Normal 13.0 - 17.5 [facility] Comment on above: Performed By: #### 2 74785 #### [facility],[address] [place], [place] [address] Lymph # 1.70 x10EE3/UL Normal 0.80 - 2.80 [facility] Comment on above: Performed By: #### 2 46419 #### [facility],[address] [place] [address] 40088 Lymphocytes/100 WBC (Bld) 24.3 % Normal 20.0 - 45.0 [facility] Comment on above: Performed By: #### 2 25193 #### [facility],[address] [place] [address]604 MANUAL DIFF N/A Normal [facility] Comment on above: Performed By: #### 2 74054 #### [facility],[address] [place] [address] 41560 MCH (RBC) [Entitic mass] 30 pg Normal 27 - 33 [facility] Comment on above: Performed By: #### 2 08525 #### [facility],[address] [place] [address] 96230 MCHC 32 X10 3 Normal 32 - 36 [facility] Comment on above: Performed By: #### 2 62060 #### [facility],[address] [place] [address] 86673 MCV (RBC) [Entitic vol] 94 fL Normal 81 - 98 [facility] Comment on above: Performed By: #### 2 91325 #### [facility],[address] [place] [address] 77256 [place] # 1.00 x10EE3/UL Normal 0.20 - 1.00 [facility] Comment on above: Performed By: #### 2 89981 #### [facility],[address] [place] [address] 48795 MONOS % 14.7 % High 0.0 - 10.0 [facility] Comment on above: Performed By: #### 2 13940 #### [facility],[address] [place] [address] 59549 Morphology Fred (Bld) [Interp] N/A Normal [facility] Comment on above: Result Comment: {CD] Performed By: #### 2 99769 #### [facility],[address] [place] [address] 05898 Neut # 3.90 x10EE3/UL Normal 1.50 - 7.10 [facility] Comment on above: Performed By: #### 2 20841 #### [facility],[address] [place] [address] 87903 Neutrophils/100 WBC (Bld) 56.9 % Normal 46.0 - 76.0 [facility] Comment on above: Performed By: #### 2 73524 #### [address] [address] PLATELET 297 x10EE3/UL Normal 150 - 450 [facility] Comment on above: Performed By: #### 2 24263 #### [address] [address] Platelet mean volume (Bld) [Entitic vol] 8.0 fL Normal 6.4 - 10.5 [facility] Comment on above: Result Comment: AUTO MATED DIFFERENTIAL Performed By: #### 2 62247 #### [facility],[address] [place] [address] 92329 RBC 4.93 x 10EE6/UL Normal 4.50 - 6.00 [facility] Comment on above: Performed By: #### 2 33286 #### [facility],[address] [place] [address] 75409 WBC 6.9 x 10EE3/UL Normal 4.5 - 10.8 [facility] Comment on above: Performed By: #### 2 74024 #### [facility],[address] [place] [address] 64285 CHEST 2 VIEWSon 10-23-2021 CHEST 2 VIEWS [place] [address] Patient: SHAWNA PRAJAPATI Phone#: : 1965 Age: 56 Gender: M Pt. Type: Out Account: [id number] Location: [facility] Ordering: IMER MALDONADO Exam Date: 10/23/2021/15:58 Family Phys: Charge Code: [id number] Physician: [place] Order #: [id number] DLP Dose#: PROCEDURE: X-RAY CHEST 2 VIEWS COMPARISON: [facility], , CHEST 2 VIEWS, 09/03/2021, 11:32. INDICATIONS: Preop. FINDINGS: LUNGS: Normal. No significant pulmonary parenchymal abnormalities. VASCULATURE: Normal. Unremarkable pulmonary vasculature. CARDIAC: Normal. No cardiac silhouette abnormality or cardiomegaly. MEDIASTINUM: Normal. No visible mass or adenopathy. PLEURA: Normal. No effusion or pleural thickening. BONES: Normal. No fracture or visible bony lesion. OTHER: Negative. CONCLUSION: No acute disease. No significant change has occurred. Dictated by: Adali Siegel MD on 10/23/2021 at 16:05 Approved by: Adali Siegel MD on 10/23/2021 at 16:07 Normal [facility] PROTHROMBIN TIME AND INRon 0 10-23-2021 INR Coag (PPP) [Relative time] 1.0 {INR} Normal 0.8 - 1.2 [facility] Comment on above: Result Comment: T HE HEMOSIL THROMBOPLASTIN REAGENT USED IN THE PROTHROMBIN TIME TEST INTERACTS WITH THE DRUG CUBICIN (DAPTOMYCIN) AND WILL RESULT IN FALSELY ELEVATED PT / INR RESULTS INR INTERPRETATION INR INDICATION PREVENTION AND TREATMENT OF THROMBOEMBOLISM ASSOCIATED WITH: 2.0 - 3.0 ATRIAL FIBRILLATION, BIOPROSTHETIC HEART VALVES, PULMONARY EMBOLISM, VENOUS THROMBOSIS, SYSTEMIC EMBOLISM POST MYOCARDIAL INFARCTION 2.5 - 3.5 MECHANICAL HEART VALVES Performed By: #### 2 64275 #### [facility],[address] [place] [address] PROTHROMBIN TIME AND INR Normal [facility] Comment on above: Result Comment: PROT HROMBIN TIME AND INR Performed By: #### 2 36432 #### [facility],[address] [place], [place] [address] PT-COUMADIN 12.0 sec Normal 9.3 - 14.1 [facility] Comment on above: Performed By: #### 2 81515 #### [facility],[address] [place] [address] Laboratory - Microbiology an d Antimicrobial susceptibilityon 09-12-2021 SARS-CoV-2 (COVID-19) RNA STEPHEN+probe Ql (Unsp spec) Not detected [facility] Work Phone: No Panel Informationon 09-12 Influenza Types A,B Rapid (Clinic) Not detected [facility] Work Phone: Absolute lymphocyte counton 09-09-2021 Lymphocytes Auto (Unsp spec) [#/Vol] 1.68 10*3/uL 0.83-4.51 [facility] Work Phone: Basophil percentageon 2021 Basophil percentage 0 SEEN /hpf 0-5 [facility] Work Phone: Basophils/100 WBC (Bld) 1.6 % 0-1 [facility] Work Phone: Bilirubin [Mass/Vol] 0.50 mg/dL 0.20-1.00 [facility] Work Phone: Comment on above: For patients on eltr ombopag therapy, use of [employer] [place] TBIL is not recommended. Chloride [Moles/Vol] 110 mmol/L 98-107 [facility] Work Phone: Eosinophils/100 WBC (Bld) 3.2 % 0-5 [facility] Work Phone: Glucose [Mass/Vol] 117 mg/dL 74-106 [facility] Work Phone: Comment on above: Fasting Glucose resu lt from 100 to 125 mg/dL suggests IMPAIRED HOMEOSTASIS per A.D.A. criteria. Neutrophils (Bld) [#/Vol] 4.4 10*3/uL 2.0-7.7 [facility] Work Phone: Neutrophils/100 WBC (Bld) 57.7 % 47-70 [facility] Work Phone: Potassium [Moles/Vol] 3.6 mmol/L 3.5-5.1 [facility] Work Phone: Protein [Mass/Vol] 6.6 g/dL 6.4-8.2 [facility] Work Phone: Sodium [Moles/Vol] 144 mmol/L 136-145 [facility]: WBC (Bld) [#/Vol] 7.5 10*3/uL 4.4-11.0 [facility] Work Phone: Bilirubin Test strip Ql (U)o n 09-09-2021 Bilirubin Ql (U) Negative Negative [facility] Work Phone: Blood erythrocytes count (nu mber/volume)on 09-09-2021 RBC (Bld) [#/Vol] 4.81 10*6/uL 4.6-6.2 [facility] Work Phone: Blood hemoglobin measurement (mass/volume)on 09-09-2021 Hemoglobin (Bld) [Mass/Vol] 14.4 g/dL 13.0-16.5 [facility] Work Phone: Blood lymphocytes/100 leukoc yteson 09-09-2021 Lymphocytes/100 WBC (Bld) 22.3 % 19-41 [facility] Work Phone: Blood monocytes/100 leukocyt eson 09-09-2021 Monocytes/100 WBC (Bld) 14.9 % 0-10 [facility] Work Phone: Blood platelet mean volumeon 09-09-2021 Platelet mean volume (Bld) [Entitic vol] 9.7 fL 6.2-12.0 [facility] Work Phone: Determination of erythrocyte mean corpuscular volume (MCV)on 09-09-2021 MCV (RBC) [Entitic vol] 96.3 fL 80-94 [facility] Work Phone: Hematocrit Auto (Bld) [Volum e fraction]on 09-09-2021 Hematocrit (Bld) [Volume fraction] 46.3 % 40-54 [facility] Work Phone: [phone] Ketones Test strip Ql (U)on 09-09-2021 Ketones Ql (U) Negative Negative [facility] Work Phone: [phone] Laboratory - Chemistry and C hemistry - challengeon 09-09-2021 ALP [Catalytic activity/Vol] 120 U/L 45-117 [facility] Work Phone: [phone] ALT [Catalytic activity/Vol] 22 U/L 16-61 [facility] Work Phone: [phone] CO2 [Moles/Vol] 28.0 mmol/L 21.0-32.0 [facility] Work Phone: [phone] Globulin (S) [Mass/Vol] 3.6 g/dL 2.2-4.2 [facility] Work Phone: [phone] Urea nitrogen/Creatinine [Mass ratio] 21.9 mg/mg 10-20 [facility] Work Phone: [phone] Laboratory - Hematology and Cell countson 09-09-2021 Erythrocyte distribution width (RBC) [Entitic vol] 47.5 fL 35.1-43.9 [facility] Work Phone: [phone] Erythrocyte distribution width (RBC) [Ratio] 13.2 % 11.6-14.6 [facility] Work Phone: [phone] Immature granulocytes/100 WBC (Bld) 0.300 % 0.0-0.9 [facility] Work Phone: [phone] Comment on above: IG% - Immature Granu locytes (promyelocytes, myelocytes and metamyelocytes) > 1% indicates that a LEFT SHIFT is Present. MCH (RBC) [Entitic mass] 29.9 pg 27.0-32.0 [facility] Work Phone: [phone] Nucleated RBC/100 WBC (Bld) [Ratio] 0 % 0-5 [facility] Work Phone: [phone] MCHC Auto (RBC) [Mass/Vol]on 09-09-2021 MCHC (RBC) [Mass/Vol] 31.1 g/dL 32-36 [facility] Work Phone: Mucus LM Ql (Urine sed)on Mucus Ql (Urine sed) 0 SEEN /hpf [facility] Work Phone: [phone] Nitrite Test strip Ql (U)on 09-09-2021 Nitrite Ql (U) Negative Negative [facility] Work Phone: No Panel Informationon 09-09 Estimated Creatinine Clearance Calc 86.65 ml/min [facility] Work Phone: [phone] Estimated GFR (MDRD) Amer 110 mL/min >60 [facility] Work Phone: Comment on above: GFR Calc Estimated GFR (MDRD) Non-Af Amer 91 mL/min >60 [facility] Work Phone: [phone] Comment on above: Non- GFR Calc SARS-CoV-2 & FLU Antigen (Rapid) [facility] Work Phone: Platelets bldon 09-09-2021 Platelets (Bld) [#/Vol] 316 10*3/uL 150-450 [facility] Work Phone: Protein Test strip Ql (U)on 09-09-2021 Protein Ql (U) Negative Negative [facility] Work Phone: Serum or plasma albumin edith urement (mass/volume)on 09-09-2021 Albumin [Mass/Vol] 3.0 g/dL 3.2-5.0 [facility] Work Phone: Serum or plasma albumin/glob ulin mass ratioon 09-09-2021 Albumin/Globulin [Mass ratio] 0.8 {ratio} 0.9-2.4 [facility] Work Phone: [phone] Serum or plasma calcium edith urement (mass/volume)on 09-09-2021 Calcium [Mass/Vol] 8.5 mg/dL 8.5-10.1 [facility] Work Phone: Serum or plasma creatinine m easurement (mass/volume)on 09-09-2021 Creatinine [Mass/Vol] 0.91 mg/dL 0.70-1.30 [facility] Work Phone: Comment on above: The validity of the calculated GFR & GFRAA in patients over 70 years has not been determined. Clinical correlation is essential. Serum or plasma urea nitroge n measurement (mass/volume)on 09-09-2021 Urea nitrogen [Mass/Vol] 20 mg/dL 7-18 [facility] Work Phone: [phone] Squamous epithelial cells de tection in urine sediment by light microscopyon 09-09-2021 Epithelial cells.squamous LM Ql (Urine sed) 0 SEEN /hpf 0-5 [facility] Work Phone: [phone] Thin prep Papanicolaou smear with manual screeningon 09-09-2021 Thin prep Papanicolaou smear with manual screening 13 U/L 15-37 [facility] Work Phone: [phone] Thin prep Papanicolaou smear with manual screening 6 - [facility] Work Phone: Urine blood detectionon 08-26 RBC Ql (U) Negative Negative [facility] Work Phone: RBC Ql (U) 0 SEEN /hpf 0-5 [facility] Work Phone: Urine clarityon 09-09-2021 Clarity (U) Clear Clear [facility] Work Phone: Urine color determinationon 09-09-2021 Color (U) Yellow Yellow [facility] Work Phone: Urine glucose detectionon Glucose Ql (U) Normal mg/dl Normal [facility] Work Phone: Urine leukocyte esterase det ection by dipstickon 09-09-2021 Leukocyte esterase Test strip Ql (U) Negative Negative [facility] Work Phone: [phone] Urine pHon 09-09-2021 pH (U) 6.0 [pH] 5.0 - 8.0 [facility] Work Phone: [phone] Urine sediment bacteria coun t by microscopy (number/high power field)on 09-09-2021 Bacteria LM.HPF (Urine sed) [#/Area] 0 /[HPF] None Seen [facility] Work Phone: Urine specific gravity measu rementon 09-09-2021 Specific gravity (U) [Rel density] 1.025 1.002-1.030 [facility] Work Phone: Urobilinogen Auto test strip Ql (U)on 09-09-2021 Urobilinogen Ql (U) Normal mg/dl Normal [facility] Work Phone: CBC + DIFFon 09-03-2021 Baso # 0.10 x10EE3/UL Normal 0.00 - 0.10 [facility] Comment on above: Performed By: #### 2 [id number] #### [facility],[address] [place] [address] 29190 Basophils/100 WBC (Bld) 1.2 % Normal 0.0 - 2.0 [facility] Comment on above: Performed By: #### 2 48681 #### [facility],[address] [place] [address] 70195 CBC + DIFF Normal [facility] Comment on above: Result Comment: CBC- COMPLETE BLOOD COUNT Performed By: #### 2 23130 #### [facility],[address] [place] [address] 96689 EO # 0.20 x10EE3/UL Normal 0.00 - 0.50 [facility] Comment on above: Performed By: #### 2 11151 #### [facility],[address] [place] [address] 90400 Eosinophils/100 WBC (Bld) 2.6 % Normal 0.0 - 7.0 [facility] Comment on above: Performed By: #### 2 76655 #### [facility],[address] [place] [address] 41280 Erythrocyte distribution width (RBC) [Ratio] 15.0 % Normal 12.0 - 15.6 [facility] Comment on above: Performed By: #### 2 50354 #### [facility],[address] [place] [address] 74854 Hematocrit (Bld) [Volume fraction] 42.6 % Normal 40.0 - 52.0 [facility] Comment on above: Performed By: #### 2 67017 #### [facility],[address] [place] [address] 42896 Hemoglobin (Bld) [Mass/Vol] 14.1 g/dL Normal 13.0 - 17.5 [facility] Comment on above: Performed By: #### 2 03346 #### [facility],[address] [place] [address] 13640 Lymph # 1.60 x10EE3/UL Normal 0.80 - 2.80 [facility] Comment on above: Performed By: #### 2 83553 #### [facility],[address] [place] [address] 66725 Lymphocytes/100 WBC (Bld) 20.5 % Normal 20.0 - 45.0 [facility] Comment on above: Performed By: #### 2 76277 #### [facility],[address] [place] [address] 31740 MANUAL DIFF N/A Normal [facility] Comment on above: Performed By: #### 2 38583 #### [facility],[address] [place] [address] 42882 MCH (RBC) [Entitic mass] 31 pg Normal 27 - 33 [facility] Comment on above: Performed By: #### 2 03349 #### [facility],[address] [place] [address] 91048 MCHC 33 X10 3 Normal 32 - 36 [facility] Comment on above: Performed By: #### 2 04358 #### [facility],[address] [place] [address] 84163 MCV (RBC) [Entitic vol] 92 fL Normal 81 - 98 [facility] Comment on above: Performed By: #### 2 77132 #### [facility],[address] [place] [address] 23909 [place] # 1.30 x10EE3/UL High 0.20 - 1.00 [facility] Comment on above: Performed By: #### 2 92673 #### [facility],[address] [place] [address] 63224 MONOS % 16.8 % High 0.0 - 10.0 [facility] Comment on above: Performed By: #### 2 03680 #### [facility],[address] [place] [address] 04494 Morphology Fred (Bld) [Interp] N/A Normal [facility] Comment on above: Result Comment: {CD] Performed By: #### 2 29322 #### [facility],[address] [place] [address] 83306 Neut # 4.50 x10EE3/UL Normal 1.50 - 7.10 [facility] Comment on above: Performed By: #### 2 72958 #### [facility],[address] [place] [address] 98291 Neutrophils/100 WBC (Bld) 58.9 % Normal 46.0 - 76.0 [facility] Comment on above: Performed By: #### 2 35105 #### [facility],[address] [place] [address] 69512 PLATELET 308 x10EE3/UL Normal 150 - 450 [facility] Comment on above: Performed By: #### 2 09101 #### [facility],[address] [place] [address] 33775 Platelet mean volume (Bld) [Entitic vol] 8.2 fL Normal 6.4 - 10.5 [facility] Comment on above: Result Comment: AUTO MATED DIFFERENTIAL Performed By: #### 2 45721 #### [facility],[address] [place] [address] 42799 RBC 4.61 x 10EE6/UL Normal 4.50 - 6.00 [facility] Comment on above: Performed By: #### 2 34857 #### [facility],[address] [place] [address] 80484 WBC 7.6 x 10EE3/UL Normal 4.5 - 10.8 [facility] Comment on above: Performed By: #### 2 72089 #### [facility],[address] [place] [address] 65570 CHEST 2 VIEWSon 09-03-2021 CHEST [address] [address] Patient: SHAWNA PRAJAPATI Phone#: : 1965 Age: 56 Gender: M Pt. Type: Out Account: [id number] Location: [facility] Ordering: CHARLES CHARLES Exam Date: 09/03/2021/11:32 Family Phys: Charge Code: [id number] Physician: [place] Order #: [id number] DLP Dose#: PROCEDURE: X-RAY CHEST 2 VIEWS COMPARISON: [facility], XR, CHEST 2 VIEWS, 03/09/2021, 13:47. INDICATIONS: Preoperative Testing. FINDINGS: LUNGS: Normal. No significant pulmonary parenchymal abnormalities. VASCULATURE: Normal. Unremarkable pulmonary vasculature. CARDIAC: Normal. No cardiac silhouette abnormality or cardiomegaly. MEDIASTINUM: Normal. No visible mass or adenopathy. PLEURA: Normal. No effusion or pleural thickening. BONES: Normal. No fracture or visible bony lesion. OTHER: Negative. CONCLUSION: No acute disease. No significant change has occurred. Dictated by: Adali Siegel MD on 09/03/2021 at 11:42 Approved by: Adali Siegel MD on 09/03/2021 at 11:42 Normal [facility] CMP with eGFRon 09-03-2021 AGE 56 years Normal [facility] Comment on above: Performed By: #### 2 55839 #### [facility],[address] [place] [address] 62296 Albumin [Mass/Vol] 3.1 g/dL Low 3.4 - 5.0 [facility] Comment on above: Performed By: #### 2 18168 #### [facility],[address] [place] [address] 46787 Albumin/Globulin [Mass ratio] 0.9 {ratio} Normal 0.9 - 1.6 [facility] Comment on above: Performed By: #### 2 59131 #### [facility],[address] [place] [address] ALK PHOS 112 U/L Normal 46 - 116 [facility] Comment on above: Performed By: #### 2 23107 #### [facility],[address] [place] [address] ALT [Catalytic activity/Vol] 23 U/L Normal 16 - 63 [facility] Comment on above: Performed By: #### 2 46328 #### [facility],[address] [place], [place] [id number] Anion gap [Moles/Vol] 10 mmol/L Normal 10 - 20 [facility] Comment on above: Performed By: #### 2 20951 #### [facility],[address] [place], [place] [address] AST [Catalytic activity/Vol] 15 U/L Normal 15 - 37 [facility] Comment on above: Performed By: #### 2 74941 #### [facility],[address] [place] [address] 78400 B/C RATIO 18 ratio Normal 0 - 30 [facility] Comment on above: Performed By: #### 2 16617 #### [facility],[address] [place] [address] 10501 Bilirubin [Mass/Vol] 0.3 mg/dL Normal 0.2 - 1.0 [facility] Comment on above: Performed By: #### 2 68049 #### [facility],[address] [place] [address] 59895 Calcium [Mass/Vol] 8.7 mg/dL Normal 8.5 - 10.1 [facility] Comment on above: Performed By: #### 2 49512 #### [facility],[address] [place] [address] 20974 Chloride [Moles/Vol] 106 mmol/L Normal 98 - 107 [facility] Comment on above: Performed By: #### 2 82054 #### [facility],[address] [place] [address] 87203 CMP with eGFR Normal [facility] Comment on above: Result Comment: COMP REHENSIVE METABOLIC PANEL Performed By: #### 2 64980 #### [facility],[address] [place] [address] CO2 [Moles/Vol] 29.4 mmol/L Normal 21.0 - 32.0 [facility] Comment on above: Performed By: #### 2 40363 #### [facility],[address] [place], [place] [address] Creatinine [Mass/Vol] 1.08 mg/dL Normal 0.70 - 1.30 [facility] Comment on above: Performed By: #### 2 80188 #### [facility],[address] [place] [address] 56705 GFR/1.73 sq M.predicted among non-blacks MDRD (S/P/Bld) [Vol rate/Area] mL/min/{1.73_m2} Normal 60 - 999 [facility] Comment on above: Performed By: #### 2 23268 #### [place] [id number] Result Comment: ACCO RDING TO THE NATIONAL KIDNEY DISEASE EDUCATION PROGRAM(NKDE), A NORMAL eGFR IS A VALUE GREATER THAN OR EQUAL TO 60 ML/MIN/1.73 SQ METERS. CHRONIC KIDNEY DISEASE: <60mL/MIN/1.73 SQ METERS KIDNEY FAILURE: <15mL/MIN/1.73 SQ METERS THIS TEST SHOULD ONLY BE USED FOR PATIENTS 18 YEARS OF AGE AND OLDER. Globulin (S) [Mass/Vol] 3.4 g/dL Normal 1.5 - 3.8 [facility] Comment on above: Performed By: #### 2 70309 #### [facility],[address] [place] [address] 50559 Glucose [Mass/Vol] 94 mg/dL Normal 74 - 106 [facility] Comment on above: Performed By: #### 2 73338 #### [facility],[address] [place] [address] 91909 Potassium [Moles/Vol] 4.0 mmol/L Normal 3.5 - 5.1 [facility] Comment on above: Performed By: #### 2 75652 #### [facility],[address] [place] [address] 84737 Protein [Mass/Vol] 6.5 g/dL Normal 6.4 - 8.2 [facility] Comment on above: Performed By: #### 2 07373 #### [facility],[address] [place] [address] 98119 Sodium [Moles/Vol] 141 mmol/L Normal 136 - 145 [facility] Comment on above: Performed By: #### 2 95832 #### [facility],[address] [place] [address] 37927 Urea nitrogen [Mass/Vol] 19 mg/dL High 7 - 18 [facility] Comment on above: Performed By: #### 2 54388 #### [facility],[address] [place] [address] 23674 CBC + DIFFon 07-17-2021 Baso # 0.00 x10EE3/UL Normal 0.00 - 0.10 [facility] Comment on above: Performed By: #### 2 74599 #### [facility],[address] [place] [address] 01306 Basophils/100 WBC (Bld) 0.5 % Normal 0.0 - 2.0 [facility] Comment on above: Performed By: #### 2 07518 #### [facility],[address] [place] [address] 95844 CBC + DIFF Normal [facility] Comment on above: Result Comment: CBC- COMPLETE BLOOD COUNT Performed By: #### 2 08137 #### [facility],[address] [place] [address] 85726 EO # 0.20 x10EE3/UL Normal 0.00 - 0.50 [facility] Comment on above: Performed By: #### 2 36270 #### [facility],[address] [place] [address] 01157 Eosinophils/100 WBC (Bld) 2.9 % Normal 0.0 - 7.0 [facility] Comment on above: Performed By: #### 2 95823 #### [facility],[address] [place] [address] Erythrocyte distribution width (RBC) [Ratio] 14.7 % Normal 12.0 - 15.6 [facility] Comment on above: Performed By: #### 2 74932 #### [facility],[address] [place], [place] [address] Hematocrit (Bld) [Volume fraction] 42.0 % Normal 40.0 - 52.0 [facility] Comment on above: Performed By: #### 2 92689 #### [facility],[address] [place] [address] 81580 Hemoglobin (Bld) [Mass/Vol] 13.7 g/dL Normal 13.0 - 17.5 [facility] Comment on above: Performed By: #### 2 79456 #### [facility],[address] [place] [address] 50170 Lymph # 1.40 x10EE3/UL Normal 0.80 - 2.80 [facility] Comment on above: Performed By: #### 2 17060 #### [facility],[address] [place] [address] 89188 Lymphocytes/100 WBC (Bld) 18.7 % Low 20.0 - 45.0 [facility] Comment on above: Performed By: #### 2 97883 #### [facility],[address] [place] [address] MANUAL DIFF N/A Normal [facility] Comment on above: Performed By: #### 2 55953 #### [facility],[address] [place] [address] MCH (RBC) [Entitic mass] 30 pg Normal 27 - 33 [facility] Comment on above: Performed By: #### 2 32401 #### [facility],[address] [place] [address] MCHC 33 X10 3 Normal 32 - 36 [facility] Comment on above: Performed By: #### 2 72856 #### [place] [address] MCV (RBC) [Entitic vol] 92 fL Normal 81 - 98 [facility] Comment on above: Performed By: #### 2 53746 #### [place] [address] [place] # 1.00 x10EE3/UL Normal 0.20 - 1.00 [facility] Comment on above: Performed By: #### 2 52115 #### [facility],[address] [place] [address] MONOS % 13.4 % High 0.0 - 10.0 [facility] Comment on above: Performed By: #### 2 08889 #### [place] [phone] Morphology Fred (Bld) [Interp] N/A Normal [facility] Comment on above: Performed By: #### 2 77973 #### [facility],[address] [place] [address] Neut # 4.70 x10EE3/UL Normal 1.50 - 7.10 [facility] Comment on above: Performed By: #### 2 92957 #### [facility],[address] [place] [address] 47669 Neutrophils/100 WBC (Bld) 64.5 % Normal 46.0 - 76.0 [facility] Comment on above: Performed By: #### 2 54737 #### [facility],[address] [place] [address] 32435 PLATELET 367 x10EE3/UL Normal 150 - 450 [facility] Comment on above: Performed By: #### 2 19093 #### [facility],[address] [place] [address] 35877 Platelet mean volume (Bld) [Entitic vol] 7.9 fL Normal 6.4 - 10.5 [facility] Comment on above: Result Comment: AUTO MATED DIFFERENTIAL Performed By: #### 2 74437 #### [facility],[address] [place] [address] 98515 RBC 4.57 x 10EE6/UL Normal 4.50 - 6.00 [facility] Comment on above: Performed By: #### 2 88334 #### [facility],[address] [place] [address] 65529 WBC 7.3 x 10EE3/UL Normal 4.5 - 10.8 [facility] Comment on above: Performed By: #### 2 08602 #### [facility],[address] [place] [address] 07512 CMP with eGFRon 07-17-2021 AGE 56 years Normal [facility] Comment on above: Performed By: #### 2 30959 #### [facility],[address] [place] [address] 65816 Albumin [Mass/Vol] 2.8 g/dL Low 3.4 - 5.0 [facility] Comment on above: Performed By: #### 2 82623 #### [facility],[address] [place] [address] 88307 Albumin/Globulin [Mass ratio] 0.7 {ratio} Low 0.9 - 1.6 [facility] Comment on above: Performed By: #### 2 82560 #### [facility],[address] [place] [address] 56291 ALK PHOS 125 U/L High 46 - 116 [facility] Comment on above: Performed By: #### 2 75256 #### [facility],[address] [place], [place] [address] ALT [Catalytic activity/Vol] 30 U/L Normal 16 - 63 [facility] Comment on above: Performed By: #### 2 82051 #### [facility],[address] [place] [address] Anion gap [Moles/Vol] 9 mmol/L Low 10 - 20 [facility] Comment on above: Performed By: #### 2 58188 #### [facility],[address] [place] [address] AST [Catalytic activity/Vol] 14 U/L Low 15 - 37 [facility] Comment on above: Performed By: #### 2 65450 #### [facility],[address] [place], [place] [address] B/C RATIO 15 ratio Normal 0 - 30 [facility] Comment on above: Performed By: #### 2 12533 #### [facility],[address] [place] [address] 20663 Bilirubin [Mass/Vol] 0.7 mg/dL Normal 0.2 - 1.0 [facility] Comment on above: Performed By: #### 2 26873 #### [facility],[address] [place] [address] 37173 Calcium [Mass/Vol] 8.4 mg/dL Low 8.5 - 10.1 [facility] Comment on above: Performed By: #### 2 64366 #### [facility],[address] [place] [address] 30562 Chloride [Moles/Vol] 110 mmol/L High 98 - 107 [facility] Comment on above: Performed By: #### 2 79162 #### [address] [address] CMP with eGFR Normal [facility] Comment on above: Result Comment: COMP REHENSIVE METABOLIC PANEL Performed By: #### 2 89819 #### [place] [id number] CO2 [Moles/Vol] 32.1 mmol/L High 21.0 - 32.0 [facility] Comment on above: Performed By: #### 2 08039 #### [place] [address] Creatinine [Mass/Vol] 0.98 mg/dL Normal 0.70 - 1.30 [facility] Comment on above: Performed By: #### 2 05877 #### [facility],[address] [place], [place] [address] GFR/1.73 sq M.predicted among non-blacks MDRD (S/P/Bld) [Vol rate/Area] mL/min/{1.73_m2} Normal 60 - 999 [facility] Comment on above: Performed By: #### 2 81246 #### [place] [address] Result Comment: ACCO RDING TO THE NATIONAL KIDNEY DISEASE EDUCATION PROGRAM(NKDE), A NORMAL eGFR IS A VALUE GREATER THAN OR EQUAL TO 60 ML/MIN/1.73 SQ METERS. CHRONIC KIDNEY DISEASE: <60mL/MIN/1.73 SQ METERS KIDNEY FAILURE: <15mL/MIN/1.73 SQ METERS THIS TEST SHOULD ONLY BE USED FOR PATIENTS 18 YEARS OF AGE AND OLDER. Globulin (S) [Mass/Vol] 3.8 g/dL Normal 1.5 - 3.8 [facility] Comment on above: Performed By: #### 2 85082 #### [place] [phone] Glucose [Mass/Vol] 81 mg/dL Normal 74 - 106 [facility] Comment on above: Performed By: #### 2 11197 #### [facility],[address] [place] [address] 39449 Potassium [Moles/Vol] 3.4 mmol/L Low 3.5 - 5.1 [facility] Comment on above: Performed By: #### 2 26569 #### [facility],[address] [place] [address] 70220 Protein [Mass/Vol] 6.6 g/dL Normal 6.4 - 8.2 [facility] Comment on above: Performed By: #### 2 58368 #### [facility],[address] [place] [address] 47240 Sodium [Moles/Vol] 148 mmol/L High 136 - 145 [facility] Comment on above: Performed By: #### 2 09229 #### [facility],[address] [place] [address] 30592 Urea nitrogen [Mass/Vol] 15 mg/dL Normal 7 - 18 [facility] Comment on above: Performed By: #### 2 06391 #### [facility],[address] [place] [address] 72808 LIPID PROFILEon 07-17-2021 Cholesterol [Mass/Vol] 123 mg/dL Normal 0 - 240 [facility] Comment on above: Performed By: #### 2 65929 #### [facility],[address] [place] [address] 22434 Cholesterol in HDL [Mass/Vol] 29 mg/dL Low 40 - 60 [facility] Comment on above: Performed By: #### 2 33029 #### [facility],[address] [place] [address] 08526 Cholesterol in LDL [Mass/Vol] 87 mg/dL Normal 0 - 129 [facility] Comment on above: Performed By: #### 2 16473 #### [facility],[address] [place] [address] 73766 Cholesterol.total/Choles terol in HDL [Mass ratio] 4.2 {ratio} Normal 0.0 - 5.0 [facility] Comment on above: Performed By: #### 2 09914 #### [facility],[address] [place] [address] 72029 Lipid 1996 panel Normal [facility] Comment on above: Result Comment: LIPI D PROFILE Performed By: #### 2 40455 #### [facility],[address] [place] [address] 44367 Triglyceride [Mass/Vol] 37 mg/dL Normal 0 - 150 [facility] Comment on above: Performed By: #### 2 97158 #### [facility],[address] [place] [address] 99888 GC/CHLAM AMPLIFICATION URINE [CCL]on 07-07-2021 GC Amplification See Below Normal Negative for Neisseria go [facility] Comment on above: Result Comment: GC A MPLIFICATION Negative for Neisseria gonorrhoeae by amplification CHLAMYDIA AMPLIFICATION Negative for Chlamydia trachomatis by amplification SOURCE: URINE [facility] [address] [place] [address] Jose Price III, M.D. [id number] Performed By: #### 2 18695 #### [facility],[address] [place] [address] 89596 CBC W Auto Differential pane l (Bld)on 06-21-2021 Basophils (Bld) [#/Vol] 0.01 10*3/uL Normal <=0.70 [facility] Comment on above: Performed By: #### 5 7021-8 #### [facility] [address] [facility] [address] [place], [place] [address] [employer] Janet FARAH [id number] Basophils/100 WBC (Bld) 0.2 % Normal <=2.0 [facility] Comment on above: Performed By: #### 5 7021-8 #### [facility] [address] [place] [address] [employer] Janet CAMARGOIA [id number] Eosinophils (Bld) [#/Vol] 0.09 10*3/uL Normal <=0.70 [facility] Comment on above: Performed By: #### 5 7021-8 #### [facility] [address] [place] [address] [employer] Janet CAMARGOIA [id number] Eosinophils/100 WBC (Bld) 1.5 % Normal <=10.0 [facility] Comment on above: Performed By: #### 5 7021-8 #### [address] [place] [address] [employer] Janet CAMARGOIA [id number] Erythrocyte distribution width (RBC) [Entitic vol] 47.9 fL High 35.1-43.9 [facility] Comment on above: Performed By: #### 5 7021-8 #### [place] [address] [place] [address] [employer] Janet CAMARGOIA [id number] Hematocrit (Bld) [Volume fraction] 46.4 % Normal 40.0-54.0 [facility] Comment on above: Performed By: #### 5 7021-8 #### [place] [address] [place] [address] [employer] Janet CAMARGOIA [id number] Hemoglobin (Bld) [Mass/Vol] 14.7 g/dL Normal 14.0-18.0 [facility] Comment on above: Performed By: #### 5 7021-8 #### [facility] [address] [place] [address] [employer] Janet CAMARGOIA [id number] Immature granulocytes (Bld) [#/Vol] 0.01 10*3/uL Normal <=0.10 [facility] Comment on above: Performed By: #### 5 7021-8 #### [place] [address] [place] [address] [employer] Janet CAMARGOIA [id number] Immature granulocytes/100 WBC (Bld) 0.20 % Normal <=1.50 [facility] Comment on above: Performed By: #### 5 7021-8 #### [place] [address] [facility] [place] [address] [employer] Janet CAMARGOIA [id number] Lymphocytes (Bld) [#/Vol] 0.98 10*3/uL Low 1.20-3.40 [facility] Comment on above: Performed By: #### 5 7021-8 #### [address] [place] [address] [employer] Janet CAMARGOIA [id number] Lymphocytes/100 WBC (Bld) 16.2 % Low 20.0-40.0 [facility] Comment on above: Performed By: #### 5 7021-8 #### [address] [place] [address] [employer] Janet CAMARGOIA [id number] MCH (RBC) [Entitic mass] 30.2 pg Normal 27.0-31.0 [facility] Comment on above: Performed By: #### 5 7021-8 #### [address] [place] [address] [employer] Janet CAMARGOIA [id number] MCHC (RBC) [Mass/Vol] 31.7 g/dL Low 32.0-36.0 [facility] Comment on above: Performed By: #### 5 7021-8 #### [address] [place] [address] [employer] Janet CAMARGOIA [id number] MCV (RBC) [Entitic vol] 95.3 fL Normal 80.0-100.0 [facility] Comment on above: Performed By: #### 5 7021-8 #### [address] [place] [address] [employer] Janet CAMARGOIA [id number] Monocytes (Bld) [#/Vol] 1.01 10*3/uL High 0.10-0.60 [facility] Comment on above: Performed By: #### 5 7021-8 #### [facility] [address] [place] [address] [employer] Janet CAMARGOIA [id number] Monocytes/100 WBC (Bld) 16.7 % High <=8.0 [facility] Comment on above: Performed By: #### 5 7021-8 #### [address] [place] [address] [employer] Janet CAMARGOIA [id number] Neutrophils (Bld) [#/Vol] 3.95 10*3/uL Normal 1.40-6.50 [facility] Comment on above: Performed By: #### 5 7021-8 #### [address] [place] [address] [employer] Janet CAMARGOIA [id number] Neutrophils/100 WBC (Bld) 65.2 % Normal 50.0-70.0 [facility] Comment on above: Performed By: #### 5 7021-8 #### [address] [place] [place] [address] [employer] Janet CAMARGOIA [id number] Nucleated RBC (Bld) [#/Vol] 0.00 10*3/uL Normal <=0.10 [facility] Comment on above: Performed By: #### 5 7021-8 #### [address] [place] [address] [employer] Janet CAMARGOIA [id number] Platelet mean volume (Bld) [Entitic vol] 10.3 fL Normal 9.0-13.0 [facility] Comment on above: Performed By: #### 5 7021-8 #### [address] [place] [address] [employer] Janet CAMARGOIA [id number] Platelets (Bld) [#/Vol] 160 10*3/uL Normal 130-400 [facility] Comment on above: Performed By: #### 5 7021-8 #### [facility] [address] [place] [address] [employer] Janet FARAH [id number] RBC (Bld) [#/Vol] 4.87 10*6/uL Normal 4.00-6.30 [facility] Comment on above: Performed By: #### 5 7021-8 #### [facility] [address] [place] [address] [employer] Janet CAMARGOIA [id number] WBC (Bld) [#/Vol] 6.05 10*3/uL Normal 4.80-10.80 [facility] Comment on above: Performed By: #### 5 7021-8 #### [facility] [address] [place] [address] [employer] FARAH [id number] CHEST AP PORTABLEon 06-21-19 CHEST AP PORTABLE EXAM: Portable chest REASON FOR EXAM: Burning sensation in the chest. TECHNIQUE: A portable frontal view of the chest was obtained. COMPARISON: 03/21/2021. FINDINGS: The lungs are well-inflated and clear. The heart and mediastinum are normal. There is no mass or pathologic adenopathy. Osseous structures are normal. IMPRESSION: No acute cardiopulmonary process. Normal [facility] Comprehensive metabolic 2000 panelon 06-21-2021 Albumin [Mass/Vol] 2.9 g/dL Low 3.4-5.0 [facility] Comment on above: Performed By: #### 2 4323-8, 48122-3, 0-3 #### [facility] [address] [place] [address] [employer] FARAH [id number] ALP [Catalytic activity/Vol] 110 U/L Normal 50-136 [facility] Comment on above: Performed By: #### 2 4323-8, 76312-6, 0-3 #### [facility] [address] [place] [address] [employer] Janet CAMARGOIA [id number] ALT [Catalytic activity/Vol] 42 U/L Normal 16-63 [facility] Comment on above: Performed By: #### 2 4322-8, , 3 #### [facility] [address] [place] [address] [employer] Janet CAMARGOIA [id number] Anion gap [Moles/Vol] 4.0 mmol/L Normal <=15.0 [facility] Comment on above: Performed By: #### 2 4322-8, , 3039- #### [facility] [address] [place] [address] [employer] Janet CAMARGOIA [id number] AST [Catalytic activity/Vol] 37 U/L Normal 15-37 [facility] Comment on above: Performed By: #### 2 4322-8, , 3039-06 #### [facility] [address] [place] [address] [employer] Janet CAMARGOIA [id number] Bilirubin [Mass/Vol] 0.7 mg/dL Normal 0.2-1.0 [facility] Comment on above: Performed By: #### 2 8, , 3039-06 #### [facility] [address] [place] [address] [employer] Janet CAMARGOIA [id number] Calcium [Mass/Vol] 8.4 mg/dL Low 8.5-10.1 [facility] Comment on above: Performed By: #### 2 4322-8, , 3 #### [facility] [address] [place] [address] [employer] Janet Simmons CLIA [id number] Chloride [Moles/Vol] 109 mmol/L High 98-107 [facility] Comment on above: Performed By: #### 2 4322-8, , 3 #### [facility] [address] [place] [address] [employer] Janet Simmons CLIA [id number] CO2 [Moles/Vol] 29 mmol/L Normal 21-32 [facility] Comment on above: Performed By: #### 2 4323-8, 28548-7, 3039-3 #### [facility] [address] [place] [address] [employer] Janet FARAH [id number] Creatinine [Mass/Vol] 0.90 mg/dL Normal 0.67-1.17 [facility] Comment on above: Performed By: #### 2 4323-8, , 3039-3 #### [facility] [address] [place] [address] [employer] Janet FARAH [id number] GFR/1.73 sq M.predicted MDRD (S/P/Bld) [Vol rate/Area] mL/min/{1.73_m2} Normal >=59 [facility] Comment on above: Performed By: #### 2 4323-8, , 3039-3 #### [facility] [address] [place] [address] [employer] Janet FARAH [id number] Glucose [Mass/Vol] 100 mg/dL Normal 74-106 [facility] Comment on above: Performed By: #### 2 4323-8, , 3039-3 #### [facility] [address] [place] [address] [employer] Janet FARAH [id number] HGFR GLOMERULAR FILTRATIO N RATE INTERPRETATION~The eGFR is calculated using the MDRD equation.~This equation has been validated in patients with chronic kidney disease;~however, it underestimates the GFR in healthy patients with GFR's over 60 mL/min.~The equation is not valid in children under the age of 18.~NOTE: Criteria for Chronic Kidney Disease:~ ~1. Kidney damage for at least three months, as defined~by structural or functional abnormalities of the kidney,~with or without decreased glomerular filtration rate, manifested by either:~* Pathological abnormalities or~* Markers of Kidney damage, including abnormalities in~the composition of the blood or urine or abnormalities in imaging tests.~ ~2. GFR <60 mL/min/1.73 m squared for at least three months, with or without kidney damage.~ Normal [facility] Comment on above: Performed By: #### 2 4322-8, 34239-7, 3039-3 #### [facility] [address] [place] [address] [employer] Janet FARAH [id number] Potassium [Moles/Vol] 4.4 mmol/L Normal 3.5-5.1 [facility] Comment on above: Performed By: #### 2 4322-8, , 3039-3 #### [facility] [address] [place] [address] [employer] Janet FARAH [id number] Protein [Mass/Vol] 6.5 g/dL Normal 6.4-8.2 [facility] Comment on above: Performed By: #### 2 4322-8, , 3039-3 #### [facility] [address] [place] [address] [employer] Janet FARAH [id number] Sodium [Moles/Vol] 142 mmol/L Normal 136-145 [facility] Comment on above: Performed By: #### 2 4322-8, , 3039-3 #### [facility] [address] [place] [address] [employer] Janet FARAH [id number] Urea nitrogen [Mass/Vol] 20 mg/dL Normal 9-20 [facility] Comment on above: Performed By: #### 2 4322-8, , 3039-3 #### [facility] [address] [place] [address] [employer] Janet FARAH [id number] LIPASEon 06-21-2021 Lipase [Catalytic activity/Vol] 124 U/L Normal 73-393 [facility] Comment on above: Performed By: #### 2 4322-8, , 3039-3 #### [facility] [address] [place] [address] [employer] - Janet FARAH [id number] MAGNESIUMon 06-21-2021 Magnesium [Mass/Vol] 2.0 mg/dL Normal 1.6-2.6 [facility] Comment on above: Performed By: #### 2 4323-8, 57857-6, 0-3 #### [facility] [address] [place] [address] [employer] [facility] [id number] TROPONIN HIGH SENSITIVITYon 06-21-2021 TNIH 13.10 pg/mL Normal <=59.00 [facility] Comment on above: Result Comment: <59 pg/mL is considered a negative result. Performed By: #### T ROP2 #### [facility] [address] [place] [address] [employer] - [facility] SOFI [id number] CORONAVIRUS ABBOTTon 022 HMOLE TESTING PERFORMED BY MOLECULAR METHOD Normal [facility] Comment on above: Performed By: #### 2 4323-8, , 3039-3 #### [facility] [address] [place] [address] [employer] - [facility] SOFI [id number] HPCRA TEST PERFORMED USING PAK ID NOW Normal [facility] Comment on above: Performed By: #### 2 4323-8, , 3039-3 #### [facility] [address] [place] [address] [employer] [facility]mons[facility]in FARAH [id number] SARS-CoV-2 (COVID-19) RNA STEPHEN+probe Ql (Unsp spec) Not detected Normal NOT DETECTED [facility] Comment on above: Performed By: #### 2 4323-8, 89897-9, 3039-3 #### [facility] [address] [place] [address] [employer] Janet FARAH [id number] BNPon 05-18-2021 Natriuretic peptide.B prohormone N-Terminal [Mass/Vol] 56 pg/mL 0 - 900 pg/mL [facility] Comment on above: An NT-pro-BNP <300 p g/ml effectively rules out acute congestive heart failure with a 99% negative predictive value. . [facility] CBC WITH DIFFERENTIALon 04-29 ABSOLUTE BASO 0.1 10 3/uL Normal 0.0-0.1 [facility] ABSOLUTE EOSIN 0.3 10 3/uL Normal 0.1-0.3 [facility] ABSOLUTE LYMPH 1.5 10 3/uL Normal 1.2-3.3 [facility] ABSOLUTE MONO 2 10 3/uL Normal [facility] ABSOLUTE NEUT 6.1 10 3/uL Normal 2.4-6.6 [facility] Basophils/100 WBC (Bld) 0.6 % Normal [facility] Eosinophils/100 WBC (Bld) 3.1 % Normal [facility] Erythrocyte distribution width (RBC) [Ratio] 11.8 % Normal 11.5-14.5 [facility] Hematocrit (Bld) [Volume fraction] 50.0 % Normal 37.7-51.1 [facility] Hemoglobin (Bld) [Mass/Vol] 15.3 g/dL Normal 12.8-17.7 [facility] IG ABSOLUTE 0.0 10 3/uL Normal 0 [facility] IG PERCENT 0.2 % Normal 0 [facility] Lymphocytes/100 WBC (Bld) 16.0 % Normal [facility] MCH (RBC) [Entitic mass] 30.1 pg Normal 27.0-34.2 [facility] MCHC (RBC) [Mass/Vol] 30.6 g/dL Low 31.4-36.2 [facility] MCV (RBC) [Entitic vol] 98.4 fL Normal 80.6-99.0 [facility] Monocytes/100 WBC (Bld) 16.5 % Normal [facility] Neutrophils/100 WBC (Bld) 63.6 % Normal [facility] PLATELET 344.0 x10 3/uL Normal 150.0-400.0 [facility] RBC 5.08 x10 6/uL Normal 3.70-5.70 [facility] WBC 9.6 x10 3/uL Normal 4.3-10.3 [facility] CBC with Differentialon 04-29 Absolute Immature Granulocytes 0.0 0 10 3/uL [facility] Absolute Lymph 1.5 [facility] Absolute [place] 2 10 3/uL [facility] Basophils (Bld) [#/Vol] 0.1 10*3/uL [facility] Basophils/100 WBC (Bld) 0.6 % G [facility] Eosinophils (Bld) [#/Vol] 0.3 10*3/uL [facility] Eosinophils/100 WBC (Bld) 3.1 % [facility] Erythrocyte distribution width (RBC) [Ratio] 11.8 % 11.5 - 14.5 % [facility] Hematocrit (Bld) [Volume fraction] 50.0 % 37.7 - 51.1 % [facility] Hemoglobin (Bld) [Mass/Vol] 15.3 g/dL 12.8 - 17.7 g/dL [facility] Immature granulocytes/100 WBC (Bld) 0.2 % 0 [facility] Interpretation and review of laboratory results Abnormal [facility] Lymphocytes/100 WBC (Bld) 16.0 % [facility] MCH (RBC) [Entitic mass] 30.1 pg 27. 0 - 34.2 pg [facility] MCHC (RBC) [Mass/Vol] 30.6 g/dL Low 31.4 - 36.2 g/dl [facility] MCV (RBC) [Entitic vol] 98.4 fL 80.6 - 99.0 fL [facility] Monocytes/100 WBC (Bld) 16.5 % G [facility] Neutrophils (Bld) [#/Vol] 6.1 10*3/uL [facility] Neutrophils/100 WBC (Bld) 63.6 % [facility] Platelets (Bld) [#/Vol] 344.0 10*3/uL [facility] RBC (Bld) [#/Vol] 5.08 10*6/uL [facility] WBC LM Ql (Sput) 9.6 [facility] Comprehensive metabolic pane l aka [facility] 05-18-2021 Albumin [Mass/Vol] 3.7 g/dL 3.5 - 5.0 g/dL [facility] Alk Phos 115 U/L 24 - 126 U/L [facility] ALT [Catalytic activity/Vol] 53 U/L 21 - 72 U/L [facility] AST [Catalytic activity/Vol] 40 U/L 3 - 55 U/L [facility] Bilirubin [Mass/Vol] 0.8 mg/dL 0.2 - 1 .6 mg/dL [facility] Calcium [Mass/Vol] 8.5 mg/dL 8.4 - 10. 4 mg/dL [facility] Chloride [Moles/Vol] 104 mmol/L 96 - 10 9 mmol/L [facility] CO2 [Moles/Vol] 32 mmol/L High 22 - 30 mmol/L [facility] Creatinine [Mass/Vol] 0.86 mg/dL 0.66 - 1.25 mg/dL [facility] Glucose [Mass/Vol] 92 mg/dL 65 - 100 mg/dL [facility] Interpretation and review of laboratory results Abnormal [facility] Potassium [Moles/Vol] 3.7 mmol/L 3.6 - 5.1 mmol/L [facility] Protein [Mass/Vol] 7.5 g/dL 6.3 - 8.2 g/dL [facility] Sodium [Moles/Vol] 142 mmol/L 135 - 147 mmol/L [facility] Urea nitrogen [Mass/Vol] 21 mg/dL 8 - 26 mg/dL [facility] GFRon 05-18-2021 GFR >60 Normal [facility] Comment on above: Result Comment: To e stimate the GFR for Americans, multiply the result provided by 1.21. Population mean GFR = 116 ml/min/1.73 sq.m. for ages 18-29 yrs. The MDRD is validated in individuals 18-70 years of age. It is less accurate in patients with extremes of muscle mass, restriction of dietary protein, ingestion of creatine, extra-renal metabolism of creatinine, or treatment with medications that affect renal tubular creatinine secretion. GFR Categories in Chronic Kidney Disease (CKD) Category: GFR(mL/min/1.73m^2) Interpretation: G1* 90 or greater Normal or high G2* 60-89 Mild decrease G3a 45-59 Mild to moderate decrease G3b 30-44 Moderate to severe decrease G4 15-29 Severe decrease G5 14 or less Kidney failure *G1&G2: In the absence of evidence of kidney damage, neither GFR category G1 nor G2 fulfill the criteria for CKD Kidney Int Suppl.2013;3:1-150 - GLOMERULAR FILTRATION RATEon 05-18-2021 GFR >60 [facility] Comment on above: To estimate the GFR for Americans, multiply the result provided by 1.21. Population mean GFR = 116 ml/min/1.73 sq.m. for ages 18-29 yrs. The MDRD is validated in individuals 18-70 years of age. It is less accurate in patients with extremes of muscle mass, restriction of dietary protein, ingestion of creatine, extra-renal metabolism of creatinine, or treatment with medications that affect renal tubular creatinine secretion. GFR Categories in Chronic Kidney Disease (CKD) Category: GFR(mL/min/1.73m^2) Interpretation: G1* 90 or greater Normal or high G2* 60-89 Mild decrease G3a 45-59 Mild to moderate decrease G3b 30-44 Moderate to severe decrease G4 15-29 Severe decrease G5 14 or less Kidney failure *G1&G2: In the absence of evidence of kidney damage, neither GFR category G1 nor G2 fulfill the criteria for CKD Kidney Int Suppl.2013;3:1-150 - METABOLIC PANELon 05-18-2021 Calcium [Mass/Vol] 8.5 mg/dL Normal 8.4-10.4 [facility] ALK PHOS 115 U/L Normal 24-126 [facility] ALT [Catalytic activity/Vol] 53 U/L Normal 21-72 [facility] AST [Catalytic activity/Vol] 40 U/L Normal 3-55 [facility] Bilirubin [Mass/Vol] 0.8 mg/dL Normal 0.2-1.6 [facility] CO2 [Moles/Vol] 32 mmol/L High 22-30 [facility] Creatinine [Mass/Vol] 0.86 mg/dL Normal 0.66-1.25 [facility] Glucose [Mass/Vol] 92 mg/dL Normal 65-100 [facility] Protein [Mass/Vol] 7.5 g/dL Normal 6.3-8.2 [facility] Urea nitrogen [Mass/Vol] 21 mg/dL Normal 8-26 [facility] Albumin [Mass/Vol] 3.7 g/dL Normal 3.5-5.0 [facility] Chloride [Moles/Vol] 104 mmol/L Normal 96-109 [facility] Potassium [Moles/Vol] 3.7 mmol/L Normal 3.6-5.1 [facility] Sodium [Moles/Vol] 142 mmol/L Normal 135-147 [facility] [id number] 05-18-2021 Natriuretic peptide B (Bld) [Mass/Vol] 56 pg/mL Normal 0-900 [facility] Comment on above: Result Comment: An N T-pro-BNP <300 pg/ml effectively rules out acute congestive heart failure with a 99% negative predictive value. . No Panel Informationon 05-18 [facility] XR CHEST 1 VIEWon 05-18-2021 XR CHEST 1 VIEW EXAMINATION: XR CHES T 1 VIEW REASON FOR EXAM: Leg swelling. FINDINGS: Single projection. Cardiomediastinal shadows are normal with no pneumothorax, edema, infiltrate or effusion. Bony thorax intact and lung volumes are normal. IMPRESSION: No acute or focal cardiopulmonary findings. B/L lower extremity swelling that began yesterday. Hx asthma No psh Normal [facility] XR Chest Single viewon 05-18 No acute or focal cardiopulmonary findings. [facility] EXAMINATION: XR CHES T 1 VIEW REASON FOR EXAM: Leg swelling. FINDINGS: Single projection. Cardiomediastinal shadows are normal with no pneumothorax, edema, infiltrate or effusion. Bony thorax intact and lung volumes are normal. [facility] Kenneth Rodriges MD - 05/18/2021 EXAMINATION: XR CHEST 1 VIEW REASON FOR EXAM: Leg swelling. FINDINGS: Single projection. Cardiomediastinal shadows are normal with no pneumothorax, edema, infiltrate or effusion. Bony thorax intact and lung volumes are normal. IMPRESSION: No acute or focal cardiopulmonary findings. [facility] Radiology Study observation (narrative) [employer] XR Chest Single viewOrdered By: Kenneth Rodriges on 05-18-2021 [employer] Work Phone: CORONAVIRUS ABBOTTon 11-28-2 021 HMOLE TESTING PERFORMED BY MOLECULAR METHOD Normal [facility] Comment on above: Performed By: #### 2 4323-8, , 3039-3 #### [facility] [address] [place], [place] [address] [employer] Janet FARAH [id number] HPCRA TEST PERFORMED USING PAK ID NOW Normal [facility] Comment on above: Performed By: #### 2 4323-8, 17323-9, 3039-3 #### [facility] [address] [place], [place] [address] [employer] Janet FARAH [id number] SARS-CoV-2 (COVID-19) RNA STEPHEN+probe Ql (Unsp spec) Not detected Normal NOT DETECTED [facility] Comment on above: Performed By: #### 2 3-8, , 3 #### [facility] [address] [place] [address] [employer] - Janet FARAH [id number] CBC W Reflex Manual Differen tial panel (Bld)on 03-22-2021 ACANTHROCYTES Normal NONE SEEN [facility] Comment on above: Performed By: #### 5 7022-6 #### [facility] [address] [place] [address] [employer] - Janet FARAH [id number] Performed for [facility] [address] [place], [place] [address] ANISOCYTES Normal NONE SEEN [facility] Comment on above: Performed By: #### 5 7022-6 #### [facility] [address] [place], [place] [address] [employer] Janet FARAH [id number] Performed for [facility] [address] [place], [place] [address] ATYPICAL LYMPHOCYTES Normal NONE SEEN [facility] Comment on above: Performed By: #### 5 7022-6 #### [facility] [address] [place], [place] [address] [employer] Janet FARAH [id number] Performed for [facility] [address] [place], [place] [address] LENNY RODS Normal NONE SEEN [facility] Comment on above: Performed By: #### 5 7022-6 #### [facility] [address] [place], [place] [address] [employer] Janet FARAH [id number] Performed for [facility] [address] [place], [place] [address] Band form neutrophils/100 WBC (Bld) 0 % Normal <=10 [facility] Comment on above: Performed By: #### 5 7022-6 #### [facility] [address] [place], [place] [address] [employer] Janet FARAH [id number] Performed for [facility] [address] [place], [place] [address] BASO STIPPLING Normal NONE SEEN [facility] Comment on above: Performed By: #### 5 7022-6 #### [facility] [address] [place], [place] [address] [employer] Janet FARAH [id number] Performed for [facility] [address] [place], [place] [address] Basophils (Bld) [#/Vol] 0.3 10*3/uL Normal 0.0-0.7 [facility] Comment on above: Performed By: #### 5 7022-6 #### [facility] [address] [place], [place] [address] [employer] Janet FARAH [id number] Performed for [facility] [address] [place], [place] [address] Basophils/100 WBC (Bld) 3 % High 0-2 [facility] Comment on above: Performed By: #### 5 7022-6 #### [facility] [address] [place], [place] [address] [employer] - Janet CAMARGOIA [id number] Performed for [facility] [address] [place], [place] [address] Blasts/100 WBC (Bld) Normal <=1 [facility] Comment on above: Performed By: #### 5 7022-6 #### [facility] [address] [place], [place] [address] [employer] Janet FARAH [id number] Performed for [facility] [address] [place], [place] [address] NAVID CELLS Normal NONE SEEN [facility] Comment on above: Performed By: #### 5 7022-6 #### [facility] [address] [place], [place] [address] [employer] Janet FARAH [id number] Performed for [facility] [address] [place], [place] [address] CABOT RINGS Normal NONE SEEN [facility] Comment on above: Performed By: #### 5 7022-6 #### [facility] [address] [place], [place] [address] [employer] - Janet FARAH [id number] Performed for [facility] [address] [place], [place] [address] DOHLE BODIES Normal NONE SEEN [facility] Comment on above: Performed By: #### 5 7022-6 #### [facility] [address] [place], [place] [address] [employer] - Janet FARAH [id number] Performed for [facility] [address] [place], [place] [address] Eosinophils (Bld) [#/Vol] 0.3 10*3/uL Normal 0.0-0.7 [facility] Comment on above: Performed By: #### 5 7022-6 #### [facility] [address] [place], [place] [address] [employer] FARAH [id number] Performed for [facility] [address] [place], [place] [address] Eosinophils/100 WBC (Bld) 3 % Normal 0-10 [facility] Comment on above: Performed By: #### 5 7022-6 #### [facility] [address] [place], [place] [address] [employer] FARAH [id number] Performed for [facility] [address] [place], [place] [address] Erythrocyte distribution width (RBC) [Entitic vol] 47.1 fL High 35.1-43.9 [facility] Comment on above: Performed By: #### 5 7022-6 #### [facility] [address] [place], [place] [address] [employer] FARAH [id number] Performed for [facility] [address] [place], [place] [address] GIANT PLATELETS Normal NONE SEEN [facility] Comment on above: Performed By: #### 5 7022-6 #### [facility] [address] [place] [address] [employer] FARAH [id number] Performed for [facility] [address] [place], [place] [address] HDIFF MANUAL DIFFERENTIAL Normal [facility] Comment on above: Performed By: #### 5 7022-6 #### [facility] [address] [place] [address] [employer] FARAH [id number] Performed for [facility] [address] [place], [place] [address] ANA BODIES Normal NONE SEEN [facility] Comment on above: Performed By: #### 5 7022-6 #### [facility] [address] [place] [address] [employer] FARAH [id number] Performed for [facility] [address] [place], [place] [address] Hematocrit (Bld) [Volume fraction] 46.5 % Normal 40.0-54.0 [facility] Comment on above: Performed By: #### 5 7022-6 #### [facility] [address] [place] [address] [employer] FARAH [id number] Performed for [facility] [address] [place], [place] [address] Hemoglobin (Bld) [Mass/Vol] 14.8 g/dL Normal 14.0-18.0 [facility] Comment on above: Performed By: #### 5 7022-6 #### [facility] [address] [place] [address] [employer] FARAH [id number] Performed for [facility] [address] [place], [place] [address] WEBER JOLLY BODIES Normal NONE SEEN [facility] Comment on above: Performed By: #### 5 7022-6 #### [facility] [address] [place], [place] [address] [employer] FARAH [id number] Performed for [facility] [address] [place], [place] [address] HSCAN RBC MORPHOLOGY SCAN Normal [facility] Comment on above: Performed By: #### 5 7022-6 #### [facility] [address] [place], [place] [address] [employer] FARAH [id number] Performed for [facility] [address] [place], [place] [address] HYPERSEGMENTED NEUT Normal NONE SEEN [facility] Comment on above: Performed By: #### 5 7022-6 #### [facility] [address] [place] [address] [employer] FARAH [id number] Performed for [facility] [address] [place], [place] [address] HYPOCHROMASIA Normal NONE SEEN [facility] Comment on above: Performed By: #### 5 7022-6 #### [facility] [address] [place], [place] [address] [employer] FARAH [id number] Performed for [facility] [address] [place], [place] [address] Immature granulocytes (Bld) [#/Vol] 0.00 10*3/uL Normal <=0.10 [facility] Comment on above: Performed By: #### 5 7022-6 #### [facility] [address] [place], [place] [address] [employer] FARAH [id number] Performed for [facility] [address] [place], [place] [address] Lymphocytes (Bld) [#/Vol] 1.5 10*3/uL Normal 1.2-3.4 [facility] Comment on above: Performed By: #### 5 7022-6 #### [facility] [address] [place], [place] [address] [employer] FARAH [id number] Performed for [facility] [address] [place], [place] [address] Lymphocytes/100 WBC (Bld) 16 % Low 20-40 [facility] Comment on above: Performed By: #### 5 7022-6 #### [facility] [address] [place] [address] [employer] FARAH [id number] Performed for [facility] [address] [place], [place] [address] MACROCYTES Normal NONE SEEN [facility] Comment on above: Performed By: #### 5 7022-6 #### [facility] [address] [place] [address] [employer] - [employer] FARAH [id number] Performed for [facility] [address] [place], [place] [address] MCH (RBC) [Entitic mass] 30.8 pg Normal 27.0-31.0 [facility] Comment on above: Performed By: #### 5 7022-6 #### [facility] [address] [place] [address] [employer] FARAH [id number] Performed for [facility] [address] [place], [place] [address] MCHC (RBC) [Mass/Vol] 31.8 g/dL Low 32.0-36.0 [facility] Comment on above: Performed By: #### 5 7022-6 #### [facility] [address] [place] [address] [employer] FARAH [id number] Performed for [facility] [address] [place], [place] [address] MCV (RBC) [Entitic vol] 96.7 fL Normal 80.0-100.0 [facility] Comment on above: Performed By: #### 5 7022-6 #### [facility] [address] [place] [address] [employer] FARAH [id number] Performed for [facility] [address] [place], [place] [address] Metamyelocytes/100 WBC (Bld) 0 % Normal 0-1 [facility] Comment on above: Performed By: #### 5 7022-6 #### [facility] [address] [place], [place] [address] [employer] FARAH [id number] Performed for [facility] [address] [place], [place] [address] MICROCYTES Normal NONE SEEN [facility] Comment on above: Performed By: #### 5 7022-6 #### [facility] [address] [place], [place] [address] [employer] FARAH [id number] Performed for [facility] [address] [place], [place] [address] Monocytes (Bld) [#/Vol] 1.4 10*3/uL High 0.1-0.6 [facility] Comment on above: Performed By: #### 5 7022-6 #### [facility] [address] [place], [place] [address] [employer] FARAH [id number] Performed for [facility] [address] [place], [place] [address] Monocytes/100 WBC (Bld) 15 % High 0-8 [facility] Comment on above: Performed By: #### 5 7022-6 #### [facility] [address] [place], [place] [address] [employer] FARAH [id number] Performed for [facility] [address] [place], [place] [address] Myelocytes/100 WBC (Bld) 0 % Normal [facility] Comment on above: Performed By: #### 5 7022-6 #### [facility] [address] [place], [place] [address] [employer] FARAH [id number] Performed for [facility] [address] [place], [place] [address] Neutrophils (Bld) [#/Vol] 6.0 10*3/uL Normal 1.4-6.5 [facility] Comment on above: Performed By: #### 5 7022-6 #### [facility] [address] [place], [place] [address] [employer] Janet FARAH [id number] Performed for [facility] [address] [place], [place] [address] Nucleated RBC/100 WBC (Bld) [Ratio] Normal 0-5 [facility] Comment on above: Performed By: #### 5 7022-6 #### [facility] [address] [place], [place] [address] [employer] - Janet CAMARGOIA [id number] Performed for [facility] [address] [place], [place] [address] OVALOCYTES Normal NONE SEEN [facility] Comment on above: Performed By: #### 5 7022-6 #### [facility] [address] [place] [address] [employer] - Janet CAMARGOIA [id number] Performed for [facility] [address] [place], [place] [address] PAPPENHEIMER BODIES Normal NONE SEEN [facility] Comment on above: Performed By: #### 5 7022-6 #### [facility] [address] [place], [place] [address] [employer] - Janet FARAH [id number] Performed for [facility] [address] [place], [place] [address] PLASMA CELLS Normal NONE SEEN [facility] Comment on above: Performed By: #### 5 7022-6 #### [facility] [address] [place], [place] [address] [employer] - Janet CAMARGOIA [id number] Performed for [facility] [address] [place], [place] [address] PLATELET CLUMPS Normal NONE SEEN [facility] Comment on above: Performed By: #### 5 7022-6 #### [facility] [address] [place], [place] [address] [employer] - Janet CAMARGOIA [id number] Performed for [facility] [address] [place], [place] [address] Platelet mean volume (Bld) [Entitic vol] 9.8 fL Normal 9.0-13.0 [facility] Comment on above: Performed By: #### 5 7022-6 #### [facility] [address] [place], [place] [address] [employer] - Janet CAMARGOIA [id number] Performed for [facility] [address] [place], [place] [address] PLATELET SATELLISM Normal NONE SEEN [facility] Comment on above: Performed By: #### 5 7022-6 #### [facility] [address] [place], [place] [address] [employer] - Janet CAMARGOIA [id number] Performed for [facility] [address] [place], [place] [address] Platelets (Bld) [#/Vol] 279 10*3/uL Normal 130-400 [facility] Comment on above: Performed By: #### 5 7022-6 #### [facility] [address] [place], [place] [address] [employer] - Janet CAMARGOIA [id number] Performed for [facility] [address] [place], [place] [address] POLYCHROMASIA Normal NONE SEEN [facility] Comment on above: Performed By: #### 5 7022-6 #### [facility] [address] [place], [place] [address] [employer] - Janet CAMARGOIA [id number] Performed for [facility] [address] [place], [place] [address] Promyelocytes/100 WBC (Bld) 0 % Normal [facility] Comment on above: Performed By: #### 5 7022-6 #### [facility] [address] [place], [place] [address] [employer] - Janet CAMARGOIA [id number] Performed for [facility] [address] [place], [place] [address] RBC (Bld) [#/Vol] 4.81 10*6/uL Normal 4.00-6.30 [facility] Comment on above: Performed By: #### 5 7022-6 #### [facility] [address] [place], [place] [address] [employer] Janet FARAH [id number] Performed for [facility] [address] [place], [place] [address] ROULEAUX Normal NONE SEEN [facility] Comment on above: Performed By: #### 5 7022-6 #### [facility] [address] [place], [place] [address] [employer] - Janet FARAH [id number] Performed for [facility] [address] [place], [place] [address] SCHISTOCYTES Normal NONE SEEN [facility] Comment on above: Performed By: #### 5 7022-6 #### [facility] [address] [place], [place] [address] [employer] - Janet FARAH [id number] Performed for [facility] [address] [place], [place] [address] Segmented neutrophils/100 WBC (Bld) 63 % Normal 50-70 [facility] Comment on above: Performed By: #### 5 7022-6 #### [facility] [address] [place], [place] [address] [employer] - Janet FARAH [id number] Performed for [facility] [address] [place], [place] [address] SICKLE CELLS Normal NONE SEEN [facility] Comment on above: Performed By: #### 5 7022-6 #### [facility] [address] [place], [place] [address] [employer] - Janet FARAH [id number] Performed for [facility] [address] [place], [place] [address] SMUDGE CELLS Normal NONE SEEN [facility] Comment on above: Performed By: #### 5 7022-6 #### [facility] [address] [place], [place] [address] [employer] - Janet FARAH [id number] Performed for [facility] [address] [place], [place] [address] SPHEROCYTES Normal NONE SEEN [facility] Comment on above: Performed By: #### 5 7022-6 #### [facility] [address] [place], [place] [address] [employer] - Janet FARAH [id number] Performed for [facility] [address] [place], [place] [address] STOMATOCYTES Normal NONE SEEN [facility] Comment on above: Performed By: #### 5 7022-6 #### [facility] [address] [place], [place] [address] [employer] - Janet CAMARGOIA [id number] Performed for [facility] [address] [place], [place] [address] TARGET CELLS Normal NONE SEEN [facility] Comment on above: Performed By: #### 5 7022-6 #### [facility] [address] [place], [place] [address] [employer] - Janet FARAH [id number] Performed for [facility] [address] [place], [place] [address] TEAR DROP CELLS Normal NONE SEEN [facility] Comment on above: Performed By: #### 5 7022-6 #### [facility] [address] [place], [place] [address] [employer] - Janet FARAH [id number] Performed for [facility] [address] [place], [place] [address] TOXIC GRANULATION Normal NONE SEEN [facility] Comment on above: Performed By: #### 5 7022-6 #### [facility] [address] [place], [place] [address] [employer] - Janet CAMARGOIA [id number] Performed for [facility] [address] [place], [place] [address] VACUOLES Normal NONE SEEN [facility] Comment on above: Performed By: #### 5 7022-6 #### [facility] [address] [place], [place] [address] [employer] - Janet FARAH [id number] Performed for [facility] [address] [place], [place] [address] WBC (Bld) [#/Vol] 9.54 10*3/uL Normal 4.80-10.80 [facility] Comment on above: Performed By: #### 5 7022-6 #### [facility] [address] [place] [address] [employer] - Janet FARAH [id number] Performed for [facility] [address] [place], [place] [address] CHEST AP PORTABLEon 03-22-20 CHEST AP PORTABLE EXAM: CHEST AP PORTABLE HISTORY: Chest pain COMPARISON: Two-view chest from 07/19/2013. TECHNIQUE: Portable chest was done 11:46 PM. FINDINGS: Trachea is midline. Mediastinum is not widened. Heart size is unremarkable. Lungs show hyperaeration with slight chronic changes bilaterally. No effusion or nodule or pneumothorax is noted. Diaphragm and bony elements are intact. IMPRESSION: Nonacute portable chest. Normal [facility] Comprehensive metabolic 2000 panelon 03-22-2021 Albumin [Mass/Vol] 3.4 g/dL Normal 3.4-5.0 [facility] Comment on above: Performed By: #### 1 0839-9, 52831-8 #### [facility] [address] [place] [address] [employer] - Janet FARAH [id number] ALP [Catalytic activity/Vol] 138 U/L High 50-136 [facility] Comment on above: Performed By: #### 1 0839-9, 92627-6 #### [facility] [address] [place] [address] [employer] - Janet FARAH [id number] ALT [Catalytic activity/Vol] 34 U/L Normal 16-63 [facility] Comment on above: Performed By: #### 1 0839-9, 67240-3 #### [facility] [address] [place] [address] [employer] - Janet FARAH [id number] Anion gap [Moles/Vol] 4.0 mmol/L Normal <=15.0 [facility] Comment on above: Performed By: #### 1 0839-9, 19694-8 #### [facility] [address] [place] [address] [employer] - Janet CAMARGOIA [id number] AST [Catalytic activity/Vol] 19 U/L Normal 15-37 [facility] Comment on above: Performed By: #### 1 0839-9, 25476-8 #### [facility] [address] [place] [address] [employer] - Janet CAMARGOIA [id number] Bilirubin [Mass/Vol] 1.0 mg/dL Normal 0.2-1.0 [facility] Comment on above: Performed By: #### 1 0839-9, 87627-8 #### [facility] [address] [place] [address] [employer] - Janet CAMARGOIA [id number] Calcium [Mass/Vol] 8.7 mg/dL Normal 8.5-10.1 [facility] Comment on above: Performed By: #### 1 0839-9, 92835-8 #### [facility] [address] [place] [address] [employer] - Janet Simmons CLIA [id number] Chloride [Moles/Vol] 107 mmol/L Normal 98-107 [facility] Comment on above: Performed By: #### 1 0839-9, 45000-0 #### [facility] [address] [place] [address] [employer] - Janet Simmons CLIA [id number] CO2 [Moles/Vol] 30 mmol/L Normal 21-32 [facility] Comment on above: Performed By: #### 1 0839-9, 02705-6 #### [facility] [address] [place] [address] [employer] - Janet CAMARGOIA [id number] Creatinine [Mass/Vol] 0.81 mg/dL Normal 0.67-1.17 [facility] Comment on above: Performed By: #### 1 0839-9, 65758-4 #### [facility] [address] [place] [address] [employer] - Janet CAMARGOСЕРГЕЙ [id number] GFR/1.73 sq M.predicted MDRD (S/P/Bld) [Vol rate/Area] mL/min/{1.73_m2} Normal >=59 [facility] Comment on above: Performed By: #### 1 0839-9, #### [facility] [address] [place] [address] [employer] - Janet FARAH [id number] Glucose [Mass/Vol] 102 mg/dL Normal 74-106 [facility] Comment on above: Performed By: #### 1 0839-9, #### [facility] [address] [place] [address] [employer] - Janet FARAH [id number] HGFR GLOMERULAR FILTRATIO N RATE INTERPRETATION~The eGFR is calculated using the MDRD equation.~This equation has been validated in patients with chronic kidney disease;~however, it underestimates the GFR in healthy patients with GFR's over 60 mL/min.~The equation is not valid in children under the age of 18.~NOTE: Criteria for Chronic Kidney Disease:~ ~1. Kidney damage for at least three months, as defined~by structural or functional abnormalities of the kidney,~with or without decreased glomerular filtration rate, manifested by either:~* Pathological abnormalities or~* Markers of Kidney damage, including abnormalities in~the composition of the blood or urine or abnormalities in imaging tests.~ ~2. GFR <60 mL/min/1.73 m squared for at least three months, with or without kidney damage.~ Normal [facility] Comment on above: Performed By: #### 1 0839-9, #### [facility] [address] [place] [address] [employer] - Janet FARAH [id number] Potassium [Moles/Vol] 3.6 mmol/L Normal 3.5-5.1 [facility] Comment on above: Performed By: #### 1 0839-9, #### [facility] [address] [place] [address] [employer] - Janet FARAH [id number] Protein [Mass/Vol] 7.1 g/dL Normal 6.4-8.2 [facility] Comment on above: Performed By: #### 1 0839-9, 10493-4 #### [facility] [address] [place] [address] [employer] - Janet FARAH [id number] Sodium [Moles/Vol] 141 mmol/L Normal 136-145 [facility] Comment on above: Performed By: #### 1 0839-9, 67968-0 #### [facility] [address] [place] [address] [employer] - Janet CAMARGOIA [id number] Urea nitrogen [Mass/Vol] 16 mg/dL Normal 9-20 [facility] Comment on above: Performed By: #### 1 0839-9, 72526-9 #### [facility] [address] [place] [address] [employer] - Janet CAMARGOIA [id number] TROPONIN Ion 03-22-2021 Troponin I.cardiac [Mass/Vol] ng/mL Normal <=0.045 [facility] Comment on above: Performed By: #### 1 0839-9, 15943-3 #### [facility] [address] [place] [address] [employer] - Janet CAAMRGOIA [id number] CBC + DIFFon 03-09-2021 Baso # 0.10 x10EE3/UL Normal 0.00 - 0.10 [facility] Comment on above: Performed By: #### 2 50692 #### [facility],[address] [place] [address] Basophils/100 WBC (Bld) 0.8 % Normal 0.0 - 2.0 [facility] Comment on above: Performed By: #### 2 75260 #### [facility],[address] [place] [address] CBC + DIFF Normal [facility] Comment on above: Result Comment: CBC- COMPLETE BLOOD COUNT Performed By: #### 2 29721 #### [facility],[address] [place] [address] EO # 0.30 x10EE3/UL Normal 0.00 - 0.50 [facility] Comment on above: Performed By: #### 2 05430 #### [facility],[address] [place] [address] Eosinophils/100 WBC (Bld) 3.7 % Normal 0.0 - 7.0 [facility] Comment on above: Performed By: #### 2 91662 #### [facility],[address] [place] [address] Erythrocyte distribution width (RBC) [Ratio] 14.4 % Normal 12.0 - 15.6 [facility] Comment on above: Performed By: #### 2 06[address] #### [facility],[address] [place] [address] Hematocrit (Bld) [Volume fraction] 45.5 % Normal 40.0 - 52.0 [facility] Comment on above: Performed By: #### 2 43852 #### [facility],[address] [place] [address] Hemoglobin (Bld) [Mass/Vol] 14.7 g/dL Normal 13.0 - 17.5 [facility] Comment on above: Performed By: #### 2 29914 #### [facility],[address] [place] [address] Lymph # 1.80 x10EE3/UL Normal 0.80 - 2.80 [facility] Comment on above: Performed By: #### 2 74002 #### [facility],[address] [place] [address] Lymphocytes/100 WBC (Bld) 19.9 % Low 20.0 - 45.0 [facility] Comment on above: Performed By: #### 2 69188 #### [facility],[address] [place], [place] [id number] MANUAL DIFF N/A Normal [facility] Comment on above: Performed By: #### 2 56570 #### [facility],[address] [place] [address] MCH (RBC) [Entitic mass] 31 pg Normal 27 - 33 [facility] Comment on above: Performed By: #### 2 06621 #### [facility],[address] [place] [address] MCHC 32 X10 3 Normal 32 - 36 [facility] Comment on above: Performed By: #### 2 64666 #### [facility] [facility],[address] [place] [address] 97536 MCV (RBC) [Entitic vol] 95 fL Normal 81 - 98 [facility] Comment on above: Performed By: #### 2 73667 #### [facility],[address] [place] [address] 61806 Pat[place] # 1.40 x10EE3/UL High 0.20 - 1.00 [facility] Comment on above: Performed By: #### 2 17506 #### [facility],[address] [place] [address] 10041 MONOS % 14.9 % High 0.0 - 10.0 [facility] Comment on above: Performed By: #### 2 55598 #### [facility],[address] [place] [address] 94933 Morphology Fred (Bld) [Interp] N/A Normal [facility] Comment on above: Result Comment: {CD] Performed By: #### 2 73459 #### [facility],[address] [place] [address] 98686 Neut # 5.50 x10EE3/UL Normal 1.50 - 7.10 [facility] Comment on above: Performed By: #### 2 94067 #### [facility],[address] [place] [address] 36807 Neutrophils/100 WBC (Bld) 60.7 % Normal 46.0 - 76.0 [facility] Comment on above: Performed By: #### 2 78743 #### [facility],[address] [place] [address] 91970 PLATELET 302 x10EE3/UL Normal 150 - 450 [facility] Comment on above: Performed By: #### 2 53592 #### [facility],[address] [place] [address] 14109 Platelet mean volume (Bld) [Entitic vol] 8.4 fL Normal 6.4 - 10.5 [facility] Comment on above: Result Comment: AUTO MATED DIFFERENTIAL Performed By: #### 2 85295 #### [facility],[address] [place] [address] 89378 RBC 4.79 x 10EE6/UL Normal 4.50 - 6.00 [facility] Comment on above: Performed By: #### 2 44077 #### [facility],[address] [place] [address] 28854 WBC 9.1 x 10EE3/UL Normal 4.5 - 10.8 [facility] Comment on above: Performed By: #### 2 69441 #### [facility],[address] [place] [address] 91744 CHEST 2 VIEWSon 03-09-2021 CHEST 2 VIEWS [place] [address] Patient: RenKaranDEYSI SHAWNA Andrés Phone#: : 1965 Age: 55 Gender: M Pt. Type: Out Account: [id number] Location: 052 Ordering: CHARLES CHARLES Exam Date: 03/09/2021/13:47 Family Phys: Charge Code: [id number] Physician: [place] Order #: [id number] DLP Dose#: PROCEDURE: X-RAY CHEST 2 VIEWS COMPARISON: [facility], , CHEST 1 VIEW, 05/03/2020, 15:45. INDICATIONS: Preoperative Clearance. FINDINGS: LUNGS: Normal. No significant pulmonary parenchymal abnormalities. VASCULATURE: Normal. Unremarkable pulmonary vasculature. CARDIAC: Normal. No cardiac silhouette abnormality or cardiomegaly. MEDIASTINUM: Normal. No visible mass or adenopathy. PLEURA: Normal. No effusion or pleural thickening. BONES: Normal. No fracture or visible bony lesion. OTHER: Negative. CONCLUSION: No acute disease. Dictated by: Ami King MD on 03/09/2021 at 16:43 Approved by: Ami King MD on 03/09/2021 at 16:44 Normal [facility] CMP with eGFRon 03-09-2021 AGE 55 years Normal [facility] Comment on above: Performed By: #### 2 31700 #### [address] [address] Albumin [Mass/Vol] 3.5 g/dL Normal 3.4 - 5.0 [facility] Comment on above: Performed By: #### 2 51220 #### [place] [address] Albumin/Globulin [Mass ratio] 1.0 {ratio} Normal 0.9 - 1.6 [facility] Comment on above: Performed By: #### 2 34049 #### [address] [address] ALK PHOS 121 U/L High 46 - 116 [facility] Comment on above: Performed By: #### 2 49602 #### [address] [address] ALT [Catalytic activity/Vol] 25 U/L Normal 16 - 63 [facility] Comment on above: Performed By: #### 2 73955 #### [address] [address] Anion gap [Moles/Vol] 12 mmol/L Normal 10 - 20 [facility] Comment on above: Performed By: #### 2 51909 #### [address] [address] AST [Catalytic activity/Vol] 15 U/L Normal 15 - 37 [facility] Comment on above: Performed By: #### 2 54118 #### [facility],[address] [place] [address] 45524 B/C RATIO 15 ratio Normal 0 - 30 [facility] Comment on above: Performed By: #### 2 85639 #### [facility],[address] [place] [address] 38043 Bilirubin [Mass/Vol] 0.6 mg/dL Normal 0.2 - 1.0 [facility] Comment on above: Performed By: #### 2 34941 #### [facility],[address] [place] [address] 74251 Calcium [Mass/Vol] 8.3 mg/dL Low 8.5 - 10.1 [facility] Comment on above: Performed By: #### 2 28446 #### [facility],[address] [place] [address] 42016 Chloride [Moles/Vol] 106 mmol/L Normal 98 - 107 [facility] Comment on above: Performed By: #### 2 35541 #### [facility],[address] [place], [place] [id number] CMP with eGFR Normal [facility] Comment on above: Result Comment: COMP REHENSIVE METABOLIC PANEL Performed By: #### 2 36154 #### [facility],[address] [place] [address] 70652 CO2 [Moles/Vol] 30.8 mmol/L Normal 21.0 - 32.0 [facility] Comment on above: Performed By: #### 2 09303 #### [address] [address] Creatinine [Mass/Vol] 0.85 mg/dL Normal 0.70 - 1.30 [facility] Comment on above: Performed By: #### 2 01204 #### [facility],[address] [place] [address] 16347 GFR/1.73 sq M.predicted among non-blacks MDRD (S/P/Bld) [Vol rate/Area] mL/min/{1.73_m2} Normal 60 - 999 [facility] Comment on above: Performed By: #### 2 35906 #### [facility],[address] [place] [address] 9[address]54 Result Comment: ACCO RDING TO THE NATIONAL KIDNEY DISEASE EDUCATION PROGRAM(NKDE), A NORMAL eGFR IS A VALUE GREATER THAN OR EQUAL TO 60 ML/MIN/1.73 SQ METERS. CHRONIC KIDNEY DISEASE: <60mL/MIN/1.73 SQ METERS KIDNEY FAILURE: <15mL/MIN/1.73 SQ METERS THIS TEST SHOULD ONLY BE USED FOR PATIENTS 18 YEARS OF AGE AND OLDER. Globulin (S) [Mass/Vol] 3.4 g/dL Normal 1.5 - 3.8 [facility] Comment on above: Performed By: #### 2 51040 #### [address] [address] Glucose [Mass/Vol] 91 mg/dL Normal 74 - 106 [facility] Comment on above: Performed By: #### 2 15715 #### [address] [address] Potassium [Moles/Vol] 3.6 mmol/L Normal 3.5 - 5.1 [facility] Comment on above: Performed By: #### 2 58736 #### [facility],[address] [place] [address] 71805 Protein [Mass/Vol] 6.9 g/dL Normal 6.4 - 8.2 [facility] Comment on above: Performed By: #### 2 55804 #### [facility],[address] [place] [address] 17330 Sodium [Moles/Vol] 145 mmol/L Normal 136 - 145 [facility] Comment on above: Performed By: #### 2 46161 #### [address],[place] [address] Urea nitrogen [Mass/Vol] 13 mg/dL Normal 7 - 18 [facility] Comment on above: Performed By: #### 2 56190 #### [facility],[address] [place], [place] [phone] HSV 1,2 Ab, IgG+IgM FOR REF LAB USE ONLYon 08-22-2020 Herpes Simplex IgM 0.19 OD Ratio Normal 0-0.90 [facility] Comment on above: Performed By: #### H SVGM #### [facility] Routine Lab [address] HSV IgM Qualitative Negative Normal Negative [facility] Comment on above: Performed By: #### H SVGM #### [facility]ine [facility] [address] [place] [address] HSV 1,2 Ab, IgG+IgM FOR REF LAB USE ONLYon 08-21-2020 Herpes Simplex IgG 1 >8.0 Normal [facility] Reference [facility] Comment on above: Performed By: #### H SVGM #### [facility] Routine [facility] [address] [place] [id number] Herpes Simplex IgG 2 <0.2 Normal [facility] Comment on above: Performed By: #### H SVGM #### [facility]ine [facility] [address] HSV IgG 1 Qualitative Positive Abnormal Negative [facility] Comment on above: Performed By: #### H SVGM #### [facility] Routine [facility] [address] [place] [address] HSV IgG 2 Qualitative Negative Normal Negative [facility] Comment on above: Performed By: #### H SVGM #### [facility]ine [facility] [address] [place] [address] RPRon 08-21-2020 Reagin Ab RPR Ql (S) NR Normal Non Reactive [facility] Comment on above: Performed By: #### R MA #### [facility] Immunology [address] [place] [address] #### [id number] #### [facility] Routine Lab [address] [place], [place] [id number] Hep C Ab IA w/Confon 021 Hepatitis C Ab IA NEGAT Normal Negative [facility] Comment on above: Performed By: #### R MA #### [facility] Immunology [address] [place] [address] #### AHCV1B #### [facility] Routine Lab [address] [place], [place] [id number] Basic Metabolic Panelon Anion gap [Moles/Vol] 15 mmol/L 10 - 2 0 mmol/L [facility] Calcium [Mass/Vol] 9.2 mg/dL 8.4 - 10. 2 mg/dL [facility] Chloride [Moles/Vol] 100 mmol/L 98 - 10 8 mmol/L [facility] Creatinine [Mass/Vol] 0.92 mg/dL 0.50 - 1.30 [facility] GFR/1.73 sq M predicted among non-blacks MDRD (S/P/Bld) [Vol rate/Area] The eGFR should be used for monitoring renal function only and not for medication dosing. [facility] GFR/1.73 sq M.predicted CKD-EPI (S/P/Bld) [Vol rate/Area] 93 >=60 mL/min/1.73 m2 [facility] Glucose [Mass/Vol] 160 mg/dL High 65 - 99 mg/dL [facility] HCO3 [Moles/Vol] 24 mmol/L 21 - 32 mmol/L [facility] Interpretation and review of laboratory results Abnormal [facility] Potassium [Moles/Vol] 3.9 mmol/L 3.5 - 5.1 mmol/L [facility] Sodium [Moles/Vol] 135 mmol/L 135 - 145 mmol/L [facility] Urea nitrogen [Mass/Vol] 13 mg/dL 8 - 25 mg/dL [facility] Urea nitrogen/Creatinine [Mass ratio] 14.1 mg/mg [facility] Magnesium Levelon 05-05-2020 Interpretation and review of laboratory results Normal [facility] Magnesium [Mass/Vol] 1.9 mg/dL 1.6 - 2 .4 mg/dL [facility] APTTon 05-04-2020 aPTT Coag (Bld) [Time] 117 s High [facility] aPTT Coag (Bld) [Time] Therapeutic range for APTT's is 68 - 104 seconds [facility] Interpretation and review of laboratory results Abnormal [facility] aPTT Coag (Bld) [Time] 41 s High [facility] aPTT Coag (Bld) [Time] Therapeutic range for APTT's is 68 - 104 seconds [facility] Interpretation and review of laboratory results Abnormal [facility] CARDIAC CATHETERIZATIONon Patient Name: SHWANA SALAMANCA Date of : 1965 Procedure Date: 05/04/2020 Cath #: [id number] Physician(s): Cristela Bell MD Ref. Physician: PROCEDURE(S) PERFORMED: Heart Cath: Left with Coronary Angio & LV gram Intervention: Drug Eluting Stent LAD Intervention: Drug Eluting Stent LAD Ultrasound Intracoronary of LAD Intervention: Pressure wire Circumflex Intervention: Drug Eluting Stent Circumflex Clinical History: Prior smoker, quit date: 2016 Chronic Lung Disease: Yes , on meds. Pre-OP Diagnosis/Indication: ACC Indications: ACS <= 24 hrs NSTEMI ASA Classification: II Modified Mallampati Class II ASA status unchanged immediately prior to sedation administration. Heart, lungs, and airway assessed prior to sedation. Following informed consent, the patient was brought to the procedure room in the fasting state. was prepped and draped in a sterile fashion. Local anesthesia was attained with 1% Lidocaine SQ, total injected 1 mls to the Right radial region. Using standard technique, sheath(s) were placed in the following site(s): right radial artery - 6F 11CM Catheters were advanced using standard guide wire technique. Multiple angiographic pictures were taken and appropriate pressures obtained. Hemodynamics: Time AIR REST ECG 14:22:13 LV 111/9, 17 14:36:56 LVp 109/5, 16 14:37:05 AOp 104/69 (85) 14:37:12 AO 102/64 (82) SA 14:37:21 After review of the angiography and assurance of the patient's stability, the catheter was withdrawn from the sheath and Radial sheath pulled Radial band used, inflated with 8 mls of air CORONARY_ANGIO/FINDING S LMCA within normal limits Tubular 85% Proximal lesion in LAD Tubular 85 % proximal lesion in LAD , Drug Eluting Stent to 0 % Pre PIEDAD flow: 3 ,Post PIEDAD flow: 3 Lesion complexity: High/C , bifurcation lesion Used 3.0X15 mm Xience ARNOLD in proximal LAD post dilated using 3.5 mm nc balloon. D was predilated using 2.5 mm balloon. IVUS: LAD -with inadequate stent expansion, further balloon angioplasty performed to achieve complete stent apposition Tubular 85% Proximal lesion in Circumflex Tubular 85 % proximal lesion in CIRC , Drug Eluting Stent to 0 % Pre PIEDAD flow: 3 ,Post PIEDAD flow: 3 Lesion complexity: High/C Used 3.5X15 mm Xience ARNOLD post dilated using 3.5 mmnc balloon. Pressure wire analysis of CIRC with IFR of 0.67 RCA within normal limits Tubular 85 % proximal lesion in LAD , Drug Eluting Stent to 0 % Pre PIEDAD flow: 3 ,Post PIEDAD flow: 3 Lesion complexity: High/C , bifurcation lesion Used 3.0X15 mm Xience ARNOLD in proximal LAD post dilated using 3.5 mm nc balloon. D was predilated using 2.5 mm balloon. < Left Dominant INTERVENTIONAL RESULTS: Drug Eluting Stent LAD Drug Eluting Stent LAD Pressure wire Circumflex Drug Eluting Stent Circumflex IVUS: LAD -with inadequate stent expansion, further balloon angioplasty performed to achieve complete stent apposition POST-OP DIAGNOSIS: Coronary Artery Disease angiographic greater than 50% Acute [place] - NSTEMI :Anterolateral CARDIAC RECOMMENDATIONS: Medical therapy Risk factor modification COMMENTS: No Complications _ Intraprocedure Medications: Fentanyl 50 mcg IV given for anxiety and general discomfort per verbal order of - Dr. Yosvany Bell Versed 2 mg IV given for anxiety and general discomfort per verbal order of - Dr. Yosvany Bell - Per Dr. Bell Heparin 3,000 Units, Verapamil 5 mg, Nitro 400 mcg Heparin dose doublechecked by victor hugo 3000 units IVP per verbal order of - Dr. Yosvany Bell Brilinta 180 mg PO per verbal order of - Dr. Yosvany Bell Equipment: Sheath(s) [employer] 6F 10CM .021 21G GLIDESHEATH SLENDER SS Wire(s) [employer] .035 X 260CM FIXED J WIRE Home[employer]iva .014 X 180CM RUNTHROUGH NS WIRE [employer] .014 X 180CM RUNTHROUGH NS WIRE [employer] LUGE WIRE .014 X 182CM Catheter(s) [employer] 5F JL3.5 DIAG CATH [employer] 5F JR5 DIAG CATH Guide(s) [employer] 6F XBLAD3.5 GUIDE Balloon(s) [employer] J[employer] 2.50MM X 12MM EMERGE RX BALLOON [employer] 2.50MM X 12MM EMERGE RX BALLOON [employer] 3.50 x 12 NC EMERGE RX BALLOON Stent(s) PAK VASCULAR 3.00 X 15 XIENCE BONILLA RX STENT PAK VASCULAR 3.50 X 15 XIENCE BONILLA RX STENT Other [employer] CAT[employer] .[address] TIP VERRATA PLUS PRESSUREWIRE See Nursing Notes for further details Signed By Cristela Bell MD On 05/04/2020 16:10:26 Cristela Bell MD _ [facility], Rad In [facility] Xper Echopacs - 05/04/2020 4:11 PM EST Patient Name: SHAWNA SALAMANCA Date of : 1965 Procedure Date: 05/04/2020 Cath #: [id number] Physician(s): Cristela Bell MD Ref. Physician: PROCEDURE(S) PERFORMED: Heart Cath: Left with Coronary Angio & LV gram Intervention: Drug Eluting Stent LAD Intervention: Drug Eluting Stent LAD Ultrasound Intracoronary of LAD Intervention: Pressure wire Circumflex Intervention: Drug Eluting Stent Circumflex Clinical History: Prior smoker, quit date: 2016 Chronic Lung Disease: Yes , on meds. Pre-OP Diagnosis/Indication: ACC Indications: ACS <= 24 hrs NSTEMI ASA Classification: II Modified Mallampati Class II ASA status unchanged immediately prior to sedation administration. Heart, lungs, and airway assessed prior to sedation. Following informed consent, the patient was brought to the procedure room in the fasting state. was prepped and draped in a sterile fashion. Local anesthesia was attained with 1% Lidocaine SQ, total injected 1 mls to the Right radial region. Using standard technique, sheath(s) were placed in the following site(s): right radial artery - 6F 11CM Catheters were advanced using standard guide wire technique. Multiple angiographic pictures were taken and appropriate pressures obtained. Hemodynamics: Time AIR REST ECG 14:22:13 LV 111/9, 17 14:36:56 LVp 109/5, 16 14:37:05 AOp 104/69 (85) 14:37:12 AO 102/64 (82) SA 14:37:21 After review of the angiography and assurance of the patient's stability, the catheter was withdrawn from the sheath and Radial sheath pulled Radial band used, inflated with 8 mls of air CORONARY_ANGIO/FINDING S LMCA within normal limits Tubular 85% Proximal lesion in LAD Tubular 85 % proximal lesion in LAD , Drug Eluting Stent to 0 % Pre PIEDAD flow: 3 ,Post PIEDAD flow: 3 Lesion complexity: High/C , bifurcation lesion Used 3.0X15 mm Xience ARNOLD in proximal LAD post dilated using 3.5 mm nc balloon. D was predilated using 2.5 mm balloon. IVUS: LAD -with inadequate stent expansion, further balloon angioplasty performed to achieve complete stent apposition Tubular 85% Proximal lesion in Circumflex Tubular 85 % proximal lesion in CIRC , Drug Eluting Stent to 0 % Pre PIEDAD flow: 3 ,Post PIEDAD flow: 3 Lesion complexity: High/C Used 3.5X15 mm Xience ARNOLD post dilated using 3.5 mmnc balloon. Pressure wire analysis of CIRC with IFR of 0.67 RCA within normal limits Tubular 85 % proximal lesion in LAD , Drug Eluting Stent to 0 % Pre PIEDAD flow: 3 ,Post PIEDAD flow: 3 Lesion complexity: High/C , bifurcation lesion Used 3.0X15 mm Xience ARNOLD in proximal LAD post dilated using 3.5 mm nc balloon. D was predilated using 2.5 mm balloon. < Left Dominant INTERVENTIONAL RESULTS: Drug Eluting Stent LAD Drug Eluting Stent LAD Pressure wire Circumflex Drug Eluting Stent Circumflex IVUS: LAD -with inadequate stent expansion, further balloon angioplasty performed to achieve complete stent apposition POST-OP DIAGNOSIS: Coronary Artery Disease angiographic greater than 50% Acute [place] - NSTEMI :Anterolateral CARDIAC RECOMMENDATIONS: Medical therapy Risk factor modification COMMENTS: No Complications _ _ Intraprocedure Medications: Fentanyl 50 mcg IV given for anxiety and general discomfort per verbal order of - Dr. Yosvany Bell Versed 2 mg IV given for anxiety and general discomfort per verbal order of - Dr. Yosvany Bell - Per Dr. Bell Heparin 3,000 Units, Verapamil 5 mg, Nitro 400 mcg Heparin dose doublechecked by victor hugo 3000 units IVP per verbal order of - Dr. Yosvany Bell Brilinta 180 mg PO per verbal order of - Dr. Yosvany Bell Equipment: Sheath(s) [employer] 6F 10CM .021 21G GLIDESHEATH SLENDER SS Wire(s) [employer] .035 X 260CM FIXED J WIRE [employer] .014 X 180CM RUNTHROUGH NS WIRE [employer] .014 X 180CM RUNTHROUGH NS WIRE [employer] LUGE WIRE .014 X 182CM Catheter(s) [employer] 5F JL3.5 DIAG CATH [employer] 5F JR5 DIAG CATH Guide(s) [employer] 6F XBLAD3.5 GUIDE Balloon(s) [employer] 2.50MM X 12MM EMERGE RX BALLOON [employer] 2.50MM X 12MM EMERGE RX BALLOON [employer] 3.50 x 12 NC EMERGE RX BALLOON Stent(s) PAK VASCULAR 3.00 X 15 XIENCE BONILLA RX STENT PAK VASCULAR 3.50 X 15 XIENCE BONILLA RX STENT Other [employer] .[address] TIP VERRATA PLUS PRESSUREWIRE See Nursing Notes for further details Signed By Cristela Bell MD On 05/04/2020 16:10:26 Cristela Bell MD _ _ [facility] CBC WITH AUTO DIFFERENTIALon 05-04-2020 Basophils (Bld) [#/Vol] 0.15 10*3/uL [facility] Basophils/100 WBC (Bld) 1.3 % [facility] Eosinophils (Bld) [#/Vol] 0.30 10*3/uL [facility] Eosinophils/100 WBC (Bld) 2.5 % [facility] Erythrocyte distribution width (RBC) [Entitic vol] 13.0 % 11.6 - 14.8 % [facility] Hematocrit (Bld) [Volume fraction] 44.0 % 41 - 53 % [facility] Hemoglobin (Bld) [Mass/Vol] 14.1 g/dL 13.5 - 17.5 g/dL [facility] Immature granulocytes (Bld) [#/Vol] 0.05 10*3/uL [facility] Immature granulocytes/100 WBC (Bld) 0.40 % [facility] Comment on above: The IG parameter is the percentage of metamyelocytes, myelocytes and promyelocytes. An immature granulocyte count (IG) of 1% or more suggests the possibility of infection, an IG count of 3% is very likely related to an infection. Interpretation and review of laboratory results Abnormal [facility] Lymphocytes (Bld) [#/Vol] 1.75 10*3/uL [facility] Lymphocytes/100 WBC (Bld) 14.7 % [facility] MCH (RBC) [Entitic mass] 30.5 pg 26 - 34 pg [facility] MCHC (RBC) [Mass/Vol] 32.0 g/dL 31 - 3 7 g/dL [facility] MCV (RBC) [Entitic vol] 95.0 fL 80 - 100 fL [facility] Monocytes (Bld) [#/Vol] 1.57 10*3/uL [facility] Monocytes/100 WBC (Bld) 13.1 % [facility] Neutrophils (Bld) [#/Vol] 8.12 10*3/uL [facility] Neutrophils/100 WBC (Bld) 68.0 % [facility] Nucleated RBC (Bld) [#/Vol] 0.00 10*3/uL [facility] Nucleated RBC/100 WBC (Bld) [Ratio] 0.0 % [facility] Platelet mean volume (Bld) [Entitic vol] 9.7 fL 9.4 - 12.4 fL [facility] Platelets (Bld) [#/Vol] 300 10*3/uL [facility] RBC (Bld) [#/Vol] 4.63 10*6/uL [facility] ealth WBC (Bld) [#/Vol] 11.94 10*3/uL [facility] Comprehensive Metabolic Pane fiorella 05-04-2020 Albumin [Mass/Vol] 3.6 g/dL 3.2 - 5.2 g/dL [facility] ALP [Catalytic activity/Vol] 98 U/L 40 - 150 U/L [facility] ALT [Catalytic activity/Vol] 19 U/L 0 - 40 U/L [facility] Anion gap [Moles/Vol] 14 mmol/L 10 - 2 0 mmol/L [facility] AST [Catalytic activity/Vol] 20 U/L 0 - 45 U/L [facility] Bilirubin [Mass/Vol] 0.6 mg/dL 0 - 1.3 mg/dL [facility] Calcium [Mass/Vol] 8.9 mg/dL 8.4 - 10. 2 mg/dL [facility] Chloride [Moles/Vol] 105 mmol/L 98 - 10 8 mmol/L [facility] Creatinine [Mass/Vol] 0.84 mg/dL 0.50 - 1.30 [facility] GFR/1.73 sq M predicted among non-blacks MDRD (S/P/Bld) [Vol rate/Area] The eGFR should be used for monitoring renal function only and not for medication dosing. [facility] GFR/1.73 sq M.predicted CKD-EPI (S/P/Bld) [Vol rate/Area] 99 >=60 mL/min/1.73 m2 [facility] Glucose [Mass/Vol] 99 mg/dL 65 - 99 mg/dL [facility] HCO3 [Moles/Vol] 25 mmol/L 21 - 32 mmol/L [facility] Interpretation and review of laboratory results Abnormal [facility] Potassium [Moles/Vol] 3.8 mmol/L 3.5 - 5.1 mmol/L [facility] Protein [Mass/Vol] 6.2 g/dL 6 - 8 g/dL [facility] alth Sodium [Moles/Vol] 140 mmol/L 135 - 145 mmol/L [facility] Urea nitrogen [Mass/Vol] 17 mg/dL 8 - 25 mg/dL [facility] Urea nitrogen/Creatinine [Mass ratio] 20.2 mg/mg High [facility] DRUGS OF ABUSE SCREEN, URINE on 05-04-2020 Amphetamines Ql (U) None Detected None Detected [facility] Comment on above: Urine Amphetamine Cu toff: < 1000 ng/mL = None Detected Barbiturates Screen Ql (U) None Detected None Detected [facility] Comment on above: Urine Barbiturates C utoff: < 200 ng/mL = None Detected Benzodiazepines Ql (U) None Detected None Detected [facility] Comment on above: Urine Benzodiazepine Cutoff: < 200 ng/mL = None Detected Buprenorphine Ql (U) None Detected None Detected [facility] Comment on above: Urine Buprenorphine Cutoff: < 5 ng/mL = None Detected Cannabinoids Screen Ql (U) None Detected None Detected [facility] Comment on above: Urine Cannabinoids C utoff: < 50 ng/mL = None Detected Cocaine Ql (U) None Detected None Detected [facility] Comment on above: Urine Cocaine Cutoff : < 300 ng/mL = None Detected Fentanyl+Norfentanyl Screen Ql (U) None Detected None Detected [facility] Comment on above: Urine Fentanyl Cutof f: < 1 ng/mL = None Detected Interpretation and review of laboratory results Abnormal [facility] Methadone Screen Ql (U) None Detected Non e Detected [facility] Comment on above: Urine Methadone Cuto ff: < 300 ng/mL = None Detected Opiates Screen Ql (U) Positive Abnormal None Detected [facility] Comment on above: Urine Opiates Cutoff : < 300 ng/mL = None Detected Oxycodone Ql (U) None Detected None Detected [facility] Comment on above: Urine Oxycodone Cuto ff: < 100 ng/mL = None Detected Screen results shoul d be used for treatment purposes only. Specimen will be kept for 2 weeks, if the sample is adequate. Confirmation testing can be initiated by calling the lab within 2 weeks. [facility] ECHOCARDIOGRAM COMPLETEon ECHOCARDIOGRAM COMPLETE Patient Info Name: SHAWNA JO Age: 54 years : 1965 Gender: Male Ht: 173 cm Wt: 83 kg BSA: 2.01 m2 BP: 95 / 59 mmHg Exam Date: 05/04/2020 9:18 AM Patient Status: Outpatient Scientist/Engineer: Dell Ryder RDCS Exam Type: ECHOCARDIOGRAM COMPLETE Study Info Indications - - Chest pain/tightness Attending Physician: MELANIE MORRIS Referring Physician: SYSTEM, PROVIDER NOT IN ; [id number] BMI: 27.83 kg/m2 Summary 1. Left ventricular systolic function is low normal, with ejection fraction estimated at 50 +/- 5%. 2. Right ventricular systolic function is normal. 3. There is no pulmonary hypertension, estimated right ventricle systolic pressure is 25 mmHg. History/Risk Factors Patient has a history of tobacco use-previous. Procedure(s): Complete two-dimensional, color flow and Doppler transthoracic echocardiogram is performed. Left Ventricle Left ventricular chamber dimension is normal. Left ventricular segmental wall motion is normal. Left ventricular systolic function is low normal, with ejection fraction estimated at 50 +/- 5%. Indeterminate diastolic function. Right Ventricle Right ventricular chamber dimension is normal. Right ventricular systolic function is normal. Left Atria Left atrial chamber dimension is normal. Right Atria Right atrial chamber dimension is normal. Aortic Valve The aortic valve is trileaflet. There is no aortic valve regurgitation. Pulmonic Valve There is no pulmonic valve stenosis. There is trace pulmonic regurgitation. Mitral Valve The mitral valve has normal leaflets. There is no mitral valve stenosis. There is trace mitral valve regurgitation. Tricuspid Valve The tricuspid valve leaflets are normal. There is no significant tricuspid valve stenosis. There is trace tricuspid valve regurgitation. There is no pulmonary hypertension, estimated right ventricle systolic pressure is 25 mmHg. Pericardium/Pleural The pericardium appears normal. There is no pericardial effusion. Inferior Vena Cava Normal inferior vena cava with >50% collapse upon inspiration consistent with normal right atrial pressure. Aorta The aortic measurements are indexed to age and body surface area. The aortic root is normal measuring 2.90 cm with an index of 1.44 cm/m2. The proximal ascending aorta is normal measuring 2.8 cm with an index of 1.39 cm/m2. Left Ventricular Outflow Tract ---- Name Value Normal ---- LVOT 2D ---- LVOT Diameter 2.00 cm LVOT Doppler ---- LVOT Peak Velocity 0.94 m/s LVOT Mean Gradient 2 mmHg LVOT VTI 17.70 cm LVOT Stroke Volume 55.58 ml LVOT Stroke Index 27.60 ml/m2 Mitral Valve ---- Name Value Normal ---- MV Doppler ---- MV PHT 95 ms MV Area (PHT) 2.32 cm2 4.00-5.00 MV Diastolic Function ---- MV E Peak Velocity 0.60 m/s MV A Peak Velocity 0.43 m/s MV E/A 1.41 MV Decel Time 327 ms MV Annular TDI ---- MV Septal e' Velocity 6.31 cm/s >=8.00 MV E/e' (Septal) 9.52 <=8.00 MV Lateral e' Velocity 8.05 cm/s >=10.00 MV E/e' (Lateral) 7.47 <=8.00 MV e' Average 7.18 MV E/e' (Average) 8.50 Tricuspid Valve ---- Name Value Normal ---- TV Regurgitation Doppler ---- TR Peak Velocity 2.36 m/s Estimated PAP/RSVP ---- PA Systolic Pressure 25 mmHg <=36 Aorta ---- Name Value Normal ---- Ascending Aorta ---- Ao Root Diameter (2D) 2.90 cm 3.10-3.70 Ao Root Diam Index (2D) 1.44 cm/m2 1.50-1.90 Prox Asc Ao Diameter 2.8 cm 2.6-3.4 Prox Asc Ao Diameter Index 1.39 cm/m2 1.30-1.70 Aortic Valve ---- Name Value Normal ---- AV Doppler ---- AV Peak Velocity 1.1 m/s AV Area (Cont Eq Jaswinder) 2.60 cm2 LVOT Vmax/AV Vmax 0.83 AV Regurgitation 2D ---- LVOT Area 3.14 cm2 Ventricles ---- Name Value Normal ---- LV Dimensions 2D/MM ---- IVS Diastolic Thickness (2D) 1.00 cm 0.60-1.00 LVID Diastole (2D) 4.40 cm 4.20-5.80 LVIW Diastolic Thickness (2D) 1.00 cm 0.60-1.00 LVID Systole (2D) 3.20 cm 2.50-4.00 LVOT Diameter 2.00 cm LV Mass (2D Cubed) 148 g 88-224 LV Mass Index (2D Cubed) 73 g/m2 49-115 Relative Wall Thickness (2D) 0.45 <=0.42 LV Fractional Shortening/Ejection Fraction 2D/MM ---- LV Fractional Shortening (2D) 26 % 25-43 RV Dimensions 2D/MM ---- RV Basal Diastolic Dimension 3.90 cm 2.50-4.10 RV Mid-Cavity Diastolic Dimension 3.20 cm 1.90-3.50 TAPSE 2.72 cm >=1.70 RV Systolic Function ---- RV s' Velocity 0.12 m/s 0.10-0.19 Atria ---- Name Value Normal ---- LA Dimensions ---- LA Dimension (2D) 3.00 cm 3.00-4.10 LA Dimen Index (2D) 1.49 cm/m2 Report Signatures Finalized by Jerry Dickerson MD on 05/04/2020 02:49 PM [facility] Patient Info Name: SHAWNA JO Age: 54 years : 1965 Gender: Male Ht: 173 cm Wt: 83 kg BSA: 2.01 m2 BP: 95 / 59 mmHg Exam Date: 05/04/2020 9:18 AM Patient Status: Outpatient Scientist/Engineer: Dell Ryder RDCS Exam Type: ECHOCARDIOGRAM COMPLETE Study Info Indications - - Chest pain/tightness Attending Physician: MELANIE MORRIS Referring Physician: SYSTEM, PROVIDER NOT IN ; [id number] BMI: 27.83 kg/m2 Summary 1. Left ventricular systolic function is low normal, with ejection fraction estimated at 50 +/- 5%. 2. Right ventricular systolic function is normal. 3. There is no pulmonary hypertension, estimated right ventricle systolic pressure is 25 mmHg. History/Risk Factors Patient has a history of tobacco use-previous. Procedure(s): Complete two-dimensional, color flow and Doppler transthoracic echocardiogram is performed. Left Ventricle Left ventricular chamber dimension is normal. Left ventricular segmental wall motion is normal. Left ventricular systolic function is low normal, with ejection fraction estimated at 50 +/- 5%. Indeterminate diastolic function. Right Ventricle Right ventricular chamber dimension is normal. Right ventricular systolic function is normal. Left Atria Left atrial chamber dimension is normal. Right Atria Right atrial chamber dimension is normal. Aortic Valve The aortic valve is trileaflet. There is no aortic valve regurgitation. Pulmonic Valve There is no pulmonic valve stenosis. There is trace pulmonic regurgitation. Mitral Valve The mitral valve has normal leaflets. There is no mitral valve stenosis. There is trace mitral valve regurgitation. Tricuspid Valve The tricuspid valve leaflets are normal. There is no significant tricuspid valve stenosis. There is trace tricuspid valve regurgitation. There is no pulmonary hypertension, estimated right ventricle systolic pressure is 25 mmHg. Pericardium/Pleural The pericardium appears normal. There is no pericardial effusion. Inferior Vena Cava Normal inferior vena cava with >50% collapse upon inspiration consistent with normal right atrial pressure. Aorta The aortic measurements are indexed to age and body surface area. The aortic root is normal measuring 2.90 cm with an index of 1.44 cm/m2. The proximal ascending aorta is normal measuring 2.8 cm with an index of 1.39 cm/m2. Left Ventricular Outflow Tract ---- Name Value Normal ---- LVOT 2D ---- LVOT Diameter 2.00 cm LVOT Doppler ---- LVOT Peak Velocity 0.94 m/s LVOT Mean Gradient 2 mmHg LVOT VTI 17.70 cm LVOT Stroke Volume 55.58 ml LVOT Stroke Index 27.60 ml/m2 Mitral Valve ---- Name Value Normal ---- MV Doppler ---- MV PHT 95 ms MV Area (PHT) 2.32 cm2 4.00-5.00 MV Diastolic Function ---- MV E Peak Velocity 0.60 m/s MV A Peak Velocity 0.43 m/s MV E/A 1.41 MV Decel Time 327 ms MV Annular TDI ---- MV Septal e' Velocity 6.31 cm/s >=8.00 MV E/e' (Septal) 9.52 <=8.00 MV Lateral e' Velocity 8.05 cm/s >=10.00 MV E/e' (Lateral) 7.47 <=8.00 MV e' Average 7.18 MV E/e' (Average) 8.50 Tricuspid Valve ---- Name Value Normal ---- TV Regurgitation Doppler ---- TR Peak Velocity 2.36 m/s Estimated PAP/RSVP ---- PA Systolic Pressure 25 mmHg <=36 Aorta ---- Name Value Normal ---- Ascending Aorta ---- Ao Root Diameter (2D) 2.90 cm 3.10-3.70 Ao Root Diam Index (2D) 1.44 cm/m2 1.50-1.90 Prox Asc Ao Diameter 2.8 cm 2.6-3.4 Prox Asc Ao Diameter Index 1.39 cm/m2 1.30-1.70 Aortic Valve ---- Name Value Normal ---- AV Doppler ---- AV Peak Velocity 1.1 m/s AV Area (Cont Eq Jaswinder) 2.60 cm2 LVOT Vmax/AV Vmax 0.83 AV Regurgitation 2D ---- LVOT Area 3.14 cm2 Ventricles ---- Name Value Normal ---- LV Dimensions 2D/MM ---- IVS Diastolic Thickness (2D) 1.00 cm 0.60-1.00 LVID Diastole (2D) 4.40 cm 4.20-5.80 LVIW Diastolic Thickness (2D) 1.00 cm 0.60-1.00 LVID Systole (2D) 3.20 cm 2.50-4.00 LVOT Diameter 2.00 cm LV Mass (2D Cubed) 148 g 88-224 LV Mass Index (2D Cubed) 73 g/m2 49-115 Relative Wall Thickness (2D) 0.45 <=0.42 LV Fractional Shortening/Ejection Fraction 2D/MM ---- LV Fractional Shortening (2D) 26 % 25-43 RV Dimensions 2D/MM ---- RV Basal Diastolic Dimension 3.90 cm 2.50-4.10 RV Mid-Cavity Diastolic Dimension 3.20 cm 1.90-3.50 TAPSE 2.72 cm >=1.70 RV Systolic Function ---- RV s' Velocity 0.12 m/s 0.10-0.19 Atria ---- Name Value Normal ---- LA Dimensions ---- LA Dimension (2D) 3.00 cm 3.00-4.10 LA Dimen Index (2D) 1.49 cm/m2 Report Signatures Finalized by Jerry Dcikerson MD on 05/04/2020 02:49 PM [facility] Interface, Rad In [facility] Xper Echopacs - 05/04/2020 2:50 PM EST Patient Info Name: SHAWNA JO Age: 54 years : 1965 Gender: Male Ht: 173 cm Wt: 83 kg BSA: 2.01 m2 BP: 95 / 59 mmHg Exam Date: 05/04/2020 9:18 AM Patient Status: Outpatient Scientist/Engineer: Dell Ryder RDCS Exam Type: ECHOCARDIOGRAM COMPLETE Study Info Indications - - Chest pain/tightness Attending Physician: MELANIE MORRIS Referring Physician: SYSTEM, PROVIDER NOT IN ; [id number] BMI: 27.83 kg/m2 Summary 1. Left ventricular systolic function is low normal, with ejection fraction estimated at 50 +/- 5%. 2. Right ventricular systolic function is normal. 3. There is no pulmonary hypertension, estimated right ventricle systolic pressure is 25 mmHg. History/Risk Factors Patient has a history of tobacco use-previous. Procedure(s): Complete two-dimensional, color flow and Doppler transthoracic echocardiogram is performed. Left Ventricle Left ventricular chamber dimension is normal. Left ventricular segmental wall motion is normal. Left ventricular systolic function is low normal, with ejection fraction estimated at 50 +/- 5%. Indeterminate diastolic function. Right Ventricle Right ventricular chamber dimension is normal. Right ventricular systolic function is normal. Left Atria Left atrial chamber dimension is normal. Right Atria Right atrial chamber dimension is normal. Aortic Valve The aortic valve is trileaflet. There is no aortic valve regurgitation. Pulmonic Valve There is no pulmonic valve stenosis. There is trace pulmonic regurgitation. Mitral Valve The mitral valve has normal leaflets. There is no mitral valve stenosis. There is trace mitral valve regurgitation. Tricuspid Valve The tricuspid valve leaflets are normal. There is no significant tricuspid valve stenosis. There is trace tricuspid valve regurgitation. There is no pulmonary hypertension, estimated right ventricle systolic pressure is 25 mmHg. Pericardium/Pleural The pericardium appears normal. There is no pericardial effusion. Inferior Vena Cava Normal inferior vena cava with >50% collapse upon inspiration consistent with normal right atrial pressure. Aorta The aortic measurements are indexed to age and body surface area. The aortic root is normal measuring 2.90 cm with an index of 1.44 cm/m2. The proximal ascending aorta is normal measuring 2.8 cm with an index of 1.39 cm/m2. Left Ventricular Outflow Tract ---- Name Value Normal ---- LVOT 2D ---- LVOT Diameter 2.00 cm LVOT Doppler ---- LVOT Peak Velocity 0.94 m/s LVOT Mean Gradient 2 mmHg LVOT VTI 17.70 cm LVOT Stroke Volume 55.58 ml LVOT Stroke Index 27.60 ml/m2 Mitral Valve ---- Name Value Normal ---- MV Doppler ---- MV PHT 95 ms MV Area (PHT) 2.32 cm2 4.00-5.00 MV Diastolic Function ---- MV E Peak Velocity 0.60 m/s MV A Peak Velocity 0.43 m/s MV E/A 1.41 MV Decel Time 327 ms MV Annular TDI ---- MV Septal e' Velocity 6.31 cm/s >=8.00 MV E/e' (Septal) 9.52 <=8.00 MV Lateral e' Velocity 8.05 cm/s >=10.00 MV E/e' (Lateral) 7.47 <=8.00 MV e' Average 7.18 MV E/e' (Average) 8.50 Tricuspid Valve ---- Name Value Normal ---- TV Regurgitation Doppler ---- TR Peak Velocity 2.36 m/s Estimated PAP/RSVP ---- PA Systolic Pressure 25 mmHg <=36 Aorta ---- Name Value Normal ---- Ascending Aorta ---- Ao Root Diameter (2D) 2.90 cm 3.10-3.70 Ao Root Diam Index (2D) 1.44 cm/m2 1.50-1.90 Prox Asc Ao Diameter 2.8 cm 2.6-3.4 Prox Asc Ao Diameter Index 1.39 cm/m2 1.30-1.70 Aortic Valve ---- Name Value Normal ---- AV Doppler ---- AV Peak Velocity 1.1 m/s AV Area (Cont Eq Jaswinder) 2.60 cm2 LVOT Vmax/AV Vmax 0.83 AV Regurgitation 2D ---- LVOT Area 3.14 cm2 Ventricles ---- Name Value Normal ---- LV Dimensions 2D/MM ---- IVS Diastolic Thickness (2D) 1.00 cm 0.60-1.00 LVID Diastole (2D) 4.40 cm 4.20-5.80 LVIW Diastolic Thickness (2D) 1.00 cm 0.60-1.00 LVID Systole (2D) 3.20 cm 2.50-4.00 LVOT Diameter 2.00 cm LV Mass (2D Cubed) 148 g 88-224 LV Mass Index (2D Cubed) 73 g/m2 49-115 Relative Wall Thickness (2D) 0.45 <=0.42 LV Fractional Shortening/Ejection Fraction 2D/MM ---- LV Fractional Shortening (2D) 26 % 25-43 RV Dimensions 2D/MM ---- RV Basal Diastolic Dimension 3.90 cm 2.50-4.10 RV Mid-Cavity Diastolic Dimension 3.20 cm 1.90-3.50 TAPSE 2.72 cm >=1.70 RV Systolic Function ---- RV s' Velocity 0.12 m/s 0.10-0.19 Atria ---- Name Value Normal ---- LA Dimensions ---- LA Dimension (2D) 3.00 cm 3.00-4.10 LA Dimen Index (2D) 1.49 cm/m2 Report Signatures Finalized by Jerry Dickerson MD on 05/04/2020 02:49 PM [facility] Hemoglobin A1con 05-04-2020 Average glucose Estimated from glycated hemoglobin mass conc (Bld) 117 mg/dL High 74 - 114 mg/dL [facility] HbA1c (Bld) [Mass fraction] 5.7 % High 4.2 - 5.6 % [facility] Interpretation and review of laboratory results Abnormal [facility] Normal: 4.2% - 5.6% Increased risk for diabetes: 5.7% - 6.4% Diabetes: >= 6.5% Pediatrics: No established reference range Estimated average glucose: 74-114 mg/dL [facility] Lipid Panelon 05-04-2020 Cholesterol [Mass/Vol] 166 mg/dL 100 - 199 mg/dL [facility] Cholesterol in HDL [Mass/Vol] 29 mg/dL Low 40 - 59 [facility] Cholesterol in LDL [Mass/Vol] 120 mg/dL 10 - 130 mg/dL [facility] Comment on above: National Cholesterol Education Program Guidelines: LDL Cholesterol Optimal: <100 mg/dL Near Optimal/above Optimal: 100-129 mg/dL Borderline High: 130-159 mg/dL High: 160-189 mg/dL Very High: greater than or equal to 190 mg/dL Cholesterol non HDL [Mass/Vol] 137 mg/dL [facility] Comment on above: National Cholesterol Education Program Guidelines: NON HDL Cholesterol Desirable: <130 mg/dL Borderline High: 130-159 mg/dL High: 160-189 mg/dL Very High: > or = 190 mg/dL Cholesterol.total/Choles terol in HDL [Mass ratio] 5.7 {ratio} ratio [facility] Comment on above: Males Cholesterol/HD L Ratio: Average risk: 5.0 1/2 average risk: 3.4 2 x average risk: 9.6 Interpretation and review of laboratory results Abnormal [facility] Triglyceride [Mass/Vol] 87 mg/dL 30 - 150 mg/dL [facility] TROPONINon 05-04-2020 Interpretation and review of laboratory results Abnormal [facility] Troponin T.cardiac [Mass/Vol] Probable non-acute cardiac injury or late presentation of acute injury. [facility] Troponin T.cardiac [Mass/Vol] 340 ng/L Critically high <=22 [facility] Troponin T.cardiac [Mass/Vol] 16 % <20% of Baseline Troponin [facility] TSHon 05-04-2020 Interpretation and review of laboratory results Normal [facility] TSH Qn 1.91 m[IU]/L [facility] APTTon 05-03-2020 aPTT Coag (Bld) [Time] 26 s [facility] aPTT Coag (Bld) [Time] Therapeutic range for APTT's is 68 - 104 seconds [facility] Interpretation and review of laboratory results Normal [facility] CBC WITH AUTO DIFFERENTIALon 05-03-2020 Basophils (Bld) [#/Vol] 0.14 10*3/uL [facility] Basophils/100 WBC (Bld) 1.7 % [facility] Eosinophils (Bld) [#/Vol] 0.36 10*3/uL [facility] Eosinophils/100 WBC (Bld) 4.3 % [facility] Erythrocyte distribution width (RBC) [Entitic vol] 13.0 % 11.6 - 14.8 % [facility] Hematocrit (Bld) [Volume fraction] 47.2 % 41 - 53 % [facility] Hemoglobin (Bld) [Mass/Vol] 14.9 g/dL 13.5 - 17.5 g/dL [facility] Immature granulocytes (Bld) [#/Vol] 0.02 10*3/uL [facility] Immature granulocytes/100 WBC (Bld) 0.20 % [facility] Comment on above: The IG parameter is the percentage of metamyelocytes, myelocytes and promyelocytes. An immature granulocyte count (IG) of 1% or more suggests the possibility of infection, an IG count of 3% is very likely related to an infection. Interpretation and review of laboratory results Abnormal [facility] Lymphocytes (Bld) [#/Vol] 2.03 10*3/uL [facility] Lymphocytes/100 WBC (Bld) 24.4 % [facility] MCH (RBC) [Entitic mass] 29.9 pg 26 - 34 pg [facility] MCHC (RBC) [Mass/Vol] 31.6 g/dL 31 - 3 7 g/dL [facility] MCV (RBC) [Entitic vol] 94.6 fL 80 - 100 fL [facility] Monocytes (Bld) [#/Vol] 1.15 10*3/uL High [facility] Monocytes/100 WBC (Bld) 13.8 % [facility] Neutrophils (Bld) [#/Vol] 4.63 10*3/uL [facility] Neutrophils/100 WBC (Bld) 55.6 % [facility] Nucleated RBC (Bld) [#/Vol] 0.00 10*3/uL [facility] Nucleated RBC/100 WBC (Bld) [Ratio] 0.0 % [facility] Platelet mean volume (Bld) [Entitic vol] 9.5 fL 9.4 - 12.4 fL [facility] Platelets (Bld) [#/Vol] 311 10*3/uL [facility] RBC (Bld) [#/Vol] 4.99 10*6/uL [facility] WBC (Bld) [#/Vol] 8.33 10*3/uL [facility] Comprehensive Metabolic Pane fiorella 05-03-2020 Albumin [Mass/Vol] 3.8 g/dL 3.2 - 5.2 g/dL [facility] ALP [Catalytic activity/Vol] 110 U/L 40 - 150 U/L [facility] ALT [Catalytic activity/Vol] 21 U/L 0 - 40 U/L [facility] Anion gap [Moles/Vol] 14 mmol/L 10 - 2 0 mmol/L [facility] AST [Catalytic activity/Vol] 21 U/L 0 - 45 U/L [facility] Bilirubin [Mass/Vol] 0.6 mg/dL 0 - 1.3 mg/dL [facility] Calcium [Mass/Vol] 9.3 mg/dL 8.4 - 10. 2 mg/dL [facility] Chloride [Moles/Vol] 105 mmol/L 98 - 10 8 mmol/L [facility] Creatinine [Mass/Vol] 0.88 mg/dL 0.50 - 1.30 [facility] GFR/1.73 sq M predicted among non-blacks MDRD (S/P/Bld) [Vol rate/Area] The eGFR should be used for monitoring renal function only and not for medication dosing. [facility] GFR/1.73 sq M.predicted CKD-EPI (S/P/Bld) [Vol rate/Area] 97 >=60 mL/min/1.73 m2 [facility] Glucose [Mass/Vol] 94 mg/dL 65 - 99 mg/dL [facility] HCO3 [Moles/Vol] 27 mmol/L 21 - 32 mmol/L [facility] Interpretation and review of laboratory results Normal [facility] Potassium [Moles/Vol] 3.8 mmol/L 3.5 - 5.1 mmol/L [facility] Protein [Mass/Vol] 7.0 g/dL 6 - 8 g/dL [facility] [place] alth Sodium [Moles/Vol] 142 mmol/L 135 - 145 mmol/L [facility] Urea nitrogen [Mass/Vol] 17 mg/dL 8 - 25 mg/dL [facility] Urea nitrogen/Creatinine [Mass ratio] 19.3 mg/mg [facility] TROPONINon 05-03-2020 Interpretation and review of laboratory results Abnormal [facility] Troponin T.cardiac [Mass/Vol] Possible acute cardiac injury. [facility] Troponin T.cardiac [Mass/Vol] 293 ng/L Critically high <=22 [facility] GC/Chlamydia Amp, Uron 04-07 Chlamydia Amplif, Ur CLNEG Normal [facility] Comment on above: Performed By: #### U GCCT #### [facility] Routine Lab [address] [place], [place] [address] GC Amplification, Ur NGNEG Normal [facility] Comment on above: Performed By: #### U GCCT #### [facility] Routine Lab [address] [place], [place] [address] [id number] Ag +[id number] Abon 04-06 HIV 12 Ag/Ab NR Normal Non Reactive [facility] Comment on above: Performed By: #### R MA #### [facility] Chemistry [address] [place] [phone] #### HIV12C, AHCV1B #### [facility] Routine Lab [address] [place] [phone] HIV Interpretation Negative Normal [facility] Comment on above: Performed By: #### R MA #### [facility] Chemistry [address] [phone] #### HIV12C, AHCV1B #### [facility] Routine Lab [address] [phone] HIV-1/2 Antibody NOTI Normal [facility] Reference Lab Comment on above: Performed By: #### R MA #### [facility] Chemistry [address] [phone] #### HIV12C, AHCV1B #### [facility] Routine Lab [address] [phone] Hep C Ab IA w/Confon 020 Hepatitis C Ab IA NEGAT Normal Negative [facility] Reference Lab Comment on above: Performed By: #### R MA #### [facility] Chemistry [address] [phone] #### HIV12C, AHCV1B #### [facility] Routine Lab [address] [phone] RPRon 04-06-2020 Reagin Ab RPR Ql (S) NR Normal Non Reactive [facility] Reference Lab Comment on above: Performed By: #### R MA #### [facility] Chemistry [address] [phone] #### HIV12C, AHCV1B #### [facility] Routine Lab [address] [place], [place] [address] Coronavirus 2019on 0 SARS-CoV-2 (COVID-19) RNA STEPHEN+probe Ql (Unsp spec) Normal Negative for COVID19 (SARS CoV2) by PCR. [facility] Comment on above: Result Comment: Nega tive for This test was developed and its performance characteristics determined by [facility] Pathology and Laboratory Medicine [place]. This test has been authorized by [facility] under an Emergency Use Authorization (EUA). This test has been validated in accordance with the FDA's Guidance Document Policy for Diagnostics Testing in Laboratories Certified to Perform High Complexity Testing under CLIA prior to Emergency use Authorization for Coronavirus Disease 2019 during the Public Health Emergency issued on June 26, 2019. COVID19 (SARS This test was developed and its performance characteristics determined by [facility] [place]. This test has been authorized by FDA under an Emergency Use Authorization (EUA). This test has been validated in accordance with the FDA's Guidance Document Policy for Diagnostics Testing in Laboratories Certified to Perform High Complexity Testing under CLIA prior to Emergency use Authorization for Coronavirus Disease 2019 during the Public Health Emergency issued on June 26, 2019. CoV2) by PCR. This test was developed and its performance characteristics determined by [facility] and Laboratory Medicine [place]. This test has been authorized by FDA under an Emergency Use Authorization (EUA). This test has been validated in accordance with the FDA's Guidance Document Policy for Diagnostics Testing in Laboratories Certified to Perform High Complexity Testing under CLIA prior to Emergency use Authorization for Coronavirus Disease 2019 during the Public Health Emergency issued on June 26, 2019. Performed By: #### C OVID #### [facility] Reference [address] [place], [place] [address] Coronavirus 2019on 0 SARS-CoV-2 (COVID-19) RNA STEPHEN+probe Ql (Unsp spec) Normal [facility] Comment on above: Result Comment: Naso pharyngeal Corrected on 02/22 AT 0951: Previously reported as U Swab Corrected on 02/22 AT 0951: Previously reported as U Performed By: #### C OVID #### [facility] Reference [address] [id number] Dermatopathologyon 0 Dermatopathology [facility] Dermatopathology Laboratory [address] [facility] [address] [place] [phone] DERMATOPATHOLOGY REPORT Name:HSAWNA PRAJAPATI [facility] Rec #. [id number] Location: [facility] Date of Procedure: 01/06/2020 Race: Date Received: 01/10/2020 /Sex: 1965 (Age: 54) / M Date Reported: 01/11/2020 Other: Submitting Physician:ANJALI PATTERSON MD FINAL DIAGNOSIS A. SKIN, MID UPPER BACK, EXCISION: EPIDERMAL INCLUSION CYST. B. SKIN, LEFT LOWER BACK, EXCISION: EPIDERMAL INCLUSION CYST. Electronically Signed Out by GISELA LUNSFORD M.D. Electronically Signed Out By GISELA LUNSFORD MD/[facility] By the signature on this report, the individual or group listed as making the Final Interpretation/Diagnos is certifies that they have reviewed this case. Clinical History: A,B: EIC (Epidermal includion cyst) (L72.0). Mid upper back 1.5cm 1.7cm. Left lower back 2.1cm 2.1cm. Sub epidermal nodule, r/o EIC. Excisions. Specimens Submitted As: A: SKIN, MID UPPER BACK B: SKIN, LEFT LOWER BACK Gross Description: A: Received in formalin is a morrison ellipsopdi piece of skin measuring [id number]. The specimen is embedded in toto. B: Received in formalin is a morrison ellipsoid piece of skin measuring [id number]. The specimen is embedded in part. ink/01/10/2020 Microscopic Description: A. Microscopic analysis shows a cyst with cyst wall composed of keratinizing epithelium with a granular layer. Laminated keratin fills the cyst cavity. B. Microscopic analysis shows a cyst with cyst wall composed of keratinizing epithelium with a granular layer. Laminated keratin fills the cyst cavity. Normal [facility] Comment on above: Performed By: #### D #### Dermatopathology Coronavirus 2019on 0 SARS-CoV-2 (COVID-19) RNA STEPHEN+probe Ql (Unsp spec) Normal Negative for COVID19 (SARS CoV2) by PCR. [facility] Comment on above: Result Comment: Nega tive for This test was developed and its performance characteristics determined by [facility]ology [facility] Laboratory [facility] [place]. This test has been authorized by FDA under an Emergency Use Authorization (EUA). This test has been validated in accordance with the FDA's Guidance Document Policy for Diagnostics Testing in Laboratories Certified to Perform High Complexity Testing under CLIA prior to Emergency use Authorization for Coronavirus Disease 2019 during the Public Health Emergency issued on June 26, 2019. COVID19 (SARS This test was developed and its performance characteristics determined by [facility]ology [facility] Laboratory [facility] [place]. This test has been authorized by FDA under an Emergency Use Authorization (EUA). This test has been validated in accordance with the FDA's Guidance Document Policy for Diagnostics Testing in Laboratories Certified to Perform High Complexity Testing under CLIA prior to Emergency use Authorization for Coronavirus Disease 2019 during the Public Health Emergency issued on June 26, 2019. CoV2) by PCR. This test was developed and its performance characteristics determined by [facility]ology [facility] Laboratory [facility] [place]. This test has been authorized by FDA under an Emergency Use Authorization (EUA). This test has been validated in accordance with the FDA's Guidance Document Policy for Diagnostics Testing in Laboratories Certified to Perform High Complexity Testing under CLIA prior to Emergency use Authorization for Coronavirus Disease 2019 during the Public Health Emergency issued on June 26, 2019. Performed By: #### C OVID #### [facility] Routine Lab [address] [place], [place] [address] SARS-CoV-2 (COVID-19) RNA STEPHEN+probe Ql (Unsp spec) INSTRUCTOR OF EDUCATION Normal [facility] Reference [facility] Comment on above: Performed By: #### C OVID #### [facility] Routine Lab [address] [place], [place] [address] Test Result Ejection Fractio non 02-09-2018 Test Result Ejection Fraction 60 Normal [facility] BMPon 10-28-2017 Anion gap 17 mmol/L Invalid Interpretation Code 10 - 20 mmol/L [facility] Bicarbonate (HCO3) 27 mmol/L Invalid Interpretation Code 21 - 32 mmol/L [facility] BUN/Creatinine Ratio 21.1 mg/mg High 10.0 - 20.0 [facility] Calcium 9.0 mg/dL Invalid Interpretation Code 8.4 - 10.2 mg/dL [facility] Chloride 105 mmol/L Invalid Interpretation Code 98 - 108 mmol/L [facility] Creatinine 0.71 mg/dL Invalid Interpretation Code 0.5 - 1.3 mg/dL [facility] eGFR (non-black) 107 mL/min/{1.73_m2} Invalid Interpretation Code >=60 [facility] eGFR (non-black) The eGFR should be used for monitoring renal function only and not for medication dosing. Invalid Interpretation Code [facility] Glucose mass conc 95 mg/dL Invalid Interpretation Code 65 - 99 mg/dL [facility] Interpretation and review of laboratory results Abnormal Invalid Interpretation Code [facility] Potassium molar conc 3.4 mmol/L Low 3.5 - 5 .1 mmol/L [facility] Sodium 146 mmol/L High 135 - 145 mmol/L [facility] Urea nitrogen 15 mg/dL Invalid Interpretation Code 8 - 25 mg/dL [facility] CBC Auto Differentialon Basophils Auto #/vol (Bld) 0.14 K/mcL Invalid Interpretation Code 0.00 - 0.30 [facility] Basophils/100 WBC Auto (Bld) 1.7 % Invalid Interpretation Code [facility] Eosinophils 0.46 K/mcL Invalid Interpretation Code 0.00 - 0.50 [facility] Eosinophils/100 leukocytes 5.5 % Invalid Interpretation Code [facility] Erythrocyte distribution width Auto Entitic volume (RBC) 12.8 % Invalid Interpretation Code 11.6 - 14.8 % [facility] Erythrocytes (RBC) 4.48 M/mcL Low 4.50 - 5.90 [facility] Hematocrit (HCT) 42.7 % Invalid Interpretation Code 41 - 53 % [facility] Hemoglobin mass conc (Bld) 13.9 g/dL Invalid Interpretation Code 13.5 - 17.5 g/dL [facility] Immature granulocytes #/vol (Bld) 0.02 K/mcL Invalid Interpretation Code 0.00 - 0.30 [facility] Immature granulocytes/100 WBC (Bld) 0.20 % Invalid Interpretation Code [facility] Comment on above: The IG parameter is the percentage of metamyelocytes, myelocytes, and promyelocytes. Lymphocytes 2.11 K/mcL Invalid Interpretation Code 0.90 - 4.00 [facility] Lymphocytes/100 leukocytes 25.0 % Invalid Interpretation Code [facility] MCH 31.0 pg Invalid Interpretation Code 26 - 34 pg [facility] MCHC mass conc (RBC) 32.6 g/dL Invalid Interpretation Code 31 - 37 g/dL [facility] MCV 95.3 fL Invalid Interpretation Code 80 - 100 fL [facility] Monocytes 1.44 K/mcL High 0.30 - 0.90 [facility] Monocytes/100 leukocytes 17.1 % Invalid Interpretation Code [facility] Neutrophils 4.26 K/mcL Invalid Interpretation Code 1.70 - 7.00 [facility] Neutrophils/100 WBC Auto (Bld) 50.5 % Invalid Interpretation Code [facility] Nucleated erythrocytes 0.00 K/mcL Invalid Interpretation Code 0.00 - 0.00 [facility] Nucleated erythrocytes/100 erythrocytes 0.0 % Invalid Interpretation Code [facility] Platelet mean volume (PMV) 10.3 fL Invalid Interpretation Code 9 - 15.5 fL [facility] Platelets 226 K/mcL Invalid Interpretation Code 150 - 400 [facility] WBC (Leukocytes) 8.43 K/mcL Invalid Interpretation Code 4.50 - 11.00 [facility] CBC w/ Diffon 10-28-2017 Creatinine The following orders were created for panel order CBC w/ Diff. Procedure Abnormality Status --------- ------ CBC Auto Differential[[id number] ] Abnormal Final result Please view results for these tests on the individual orders. Invalid Interpretation Code [facility] CT Abdomen Pelvis With IV Co ntrast Onlyon 10-28-2017 CT Abdomen Pelvis With IV Contrast Only 1. No acute findings in the abdomen or pelvis. 2. A few mildly enlarged retroperitoneal lymph nodes measure up to 1.2 cm in short axis. Clinical follow-up is recommended. If indicated, repeat imaging could be obtained in 3 to 6 months to evaluate for ion exchange operator time. [id number] Workstation ID: [id number] Invalid Interpretation Code [employer] [facility] CT Abdomen Pelvis With IV Contrast Only EXAMINATION: CT OF THE ABDOMEN AND PELVIS WITH CONTRAST 10/28/2017 TECHNIQUE: CT of the abdomen and pelvis was performed with the administration of intravenous contrast. Multiplanar reformatted images are provided for review. Dose modulation, iterative reconstruction, and/or weight based adjustment of the mA/kV was utilized to reduce the radiation dose to as low as reasonably achievable. COMPARISON: None. HISTORY: ORDERING SYSTEM PROVIDED HISTORY: abd pain; TECHNOLOGIST PROVIDED HISTORY: Reason for Exam: middle abd pain Illness/Other Acuity: Acute Type of Encounter: Initial Additional signs and symptoms: x couple days FINDINGS: Lower Chest: The imaged lung bases are clear. Organs: 9 mm fluid-attenuation lesion in the spleen most likely represents a cyst. The gallbladder is present without radiopaque cholelithiasis. The liver, pancreas, kidneys and adrenal glands are without significant findings. GI/Bowel: There is no mechanical bowel obstruction. The appendix is normal in caliber. Pelvis: The prostate and seminal vesicles are present. The urinary bladder is partially distended without contour abnormality. Peritoneum/Retroperito neum: Mild atherosclerotic plaque. No ascites or pneumoperitoneum. There are a few mildly enlarged retroperitoneal lymph nodes measuring up to 1.2 cm. Bones/Soft Tissues: No acute or aggressive osseous lesions. Invalid Interpretation Code [employer] [facility] CT Abdomen Pelvis With IV Contrast Only Interface, Rad In [employer] Speechq - 10/28/2017 6:43 AM EDT EXAMINATION: CT OF THE ABDOMEN AND PELVIS WITH CONTRAST 10/28/2017 TECHNIQUE: CT of the abdomen and pelvis was performed with the administration of intravenous contrast. Multiplanar reformatted images are provided for review. Dose modulation, iterative reconstruction, and/or weight based adjustment of the mA/kV was utilized to reduce the radiation dose to as low as reasonably achievable. COMPARISON: None. HISTORY: ORDERING SYSTEM PROVIDED HISTORY: abd pain; TECHNOLOGIST PROVIDED HISTORY: Reason for Exam: middle abd pain Illness/Other Acuity: Acute Type of Encounter: Initial Additional signs and symptoms: x couple days FINDINGS: Lower Chest: The imaged lung bases are clear. Organs: 9 mm fluid-attenuation lesion in the spleen most likely represents a cyst. The gallbladder is present without radiopaque cholelithiasis. The liver, pancreas, kidneys and adrenal glands are without significant findings. GI/Bowel: There is no mechanical bowel obstruction. The appendix is normal in caliber. Pelvis: The prostate and seminal vesicles are present. The urinary bladder is partially distended without contour abnormality. Peritoneum/Retroperito neum: Mild atherosclerotic plaque. No ascites or pneumoperitoneum. There are a few mildly enlarged retroperitoneal lymph nodes measuring up to 1.2 cm. Bones/Soft Tissues: No acute or aggressive osseous lesions. IMPRESSION: 1. No acute findings in the abdomen or pelvis. 2. A few mildly enlarged retroperitoneal lymph nodes measure up to 1.2 cm in short axis. Clinical follow-up is recommended. If indicated, repeat imaging could be obtained in 3 to 6 months to evaluate for ion exchange operator time. [employer] Workstation ID: [id number] Invalid Interpretation Code [employer] [facility] [place] Topon 10-28-2017 Extra Tube Hold for add-ons. Invalid Interpretation Code [facility] Comment on above: Auto resulted. Lipaseon 10-28-2017 Lipase 28 U/L Invalid Interpretation Code 15 - 65 U/L [facility] [place] Drawon 10-28-2017 Creatinine The following orders were created for panel order [place] Draw. Procedure Abnormality Status --------- ------ Gold Top[[id number]] Final result Light Blue Top[[id number]] Final result [place] Top[[id number]] Final result Urine Culture [place] Conta...[[id number]] Final result Please view results for these tests on the individual orders. Invalid Interpretation Code [facility] Urinalysison 10-28-2017 Bilirubin Ql (U) Negative Invalid Interpretation Code Negative [facility] Blood, Urine Negative Invalid Interpretation Code Negative [facility] Interpretation and review of laboratory results Normal Invalid Interpretation Code [facility] Mucus, Urine Rare Invalid Interpretation Code None Seen, Rare /lpf [facility] Nitrite, Urine Negative Invalid Interpretation Code Negative [facility] Squamous Epithelial <1 Invalid Interpretation Code 0 - 4 /hpf [facility] Urine, bacteria in sediment None Seen Invalid Interpretation Code None Seen /hpf [facility] Urine, clarity Clear Invalid Interpretation Code Clear [facility] Urine, color Yellow Invalid Interpretation Code Colorless, Yellow [facility] Urine, erythrocytes 3 /hpf Invalid Interpretation Code 0 - 3 [facility] Urine, glucose presence Negative Invalid Interpretation Code Negative mg/dL [facility] Urine, ketones presence Negative Invalid Interpretation Code Negative mg/dL [facility] Urine, leukocyte esterase presence Negative Invalid Interpretation Code Negative [facility] Urine, pH 5.0 [pH] Invalid Interpretation Code 5.0 - 7.0 [facility] Urine, protein Negative Invalid Interpretation Code Negative mg/dL [facility] Urine, specific gravity 1.017 1 Invalid Interpretation Code 1.005 - 1.025 [facility] Urine, urobilinogen <2.0 Invalid Interpretation Code <2.0 mg/dL [facility] WBCs, Urine 1 /hpf Invalid Interpretation Code 0 - 5 [facility] Urinalysis Microscopic examination is performed on all urinalysis samples and only positive findings are reported. The test for blood on the chemical analytic portion of urinalysis may also be positive due to hemoglobinuria and myoglobinuria and if red blood cells are present they are quantified by microscopic examination. Invalid Interpretation Code [facility] Urine Culture [place] on 10-28-2017 Urine Culture [place] Container Invalid Interpretation Code [facility] BMPon 04-27-2017 Anion gap 13 mmol/L Invalid Interpretation Code 10 - 20 mmol/L [facility] Bicarbonate (HCO3) 28 mmol/L Invalid Interpretation Code 21 - 32 mmol/L [facility] BUN/Creatinine Ratio 15.4 mg/mg Invalid Interpretation Code 10.0 - 20.0 [facility] Calcium 8.9 mg/dL Invalid Interpretation Code 8.4 - 10.2 mg/dL [facility] Chloride 106 mmol/L Invalid Interpretation Code 98 - 108 mmol/L [facility] Creatinine 0.65 mg/dL Invalid Interpretation Code 0.5 - 1.3 mg/dL [facility] eGFR (non-black) 112 mL/min/{1.73_m2} Invalid Interpretation Code >=60 [facility] eGFR (non-black) The eGFR should be used for monitoring renal function only and not for medication dosing. Invalid Interpretation Code [facility] Glucose 98 mg/dL Invalid Interpretation Code 65 - 99 mg/dL [facility] Potassium 4.2 mmol/L Invalid Interpretation Code 3.5 - 5.1 mmol/L [facility] Sodium 143 mmol/L Invalid Interpretation Code 135 - 145 mmol/L [facility] Urea nitrogen 10 mg/dL Invalid Interpretation Code 8 - 25 mg/dL [facility] CBC Auto Differentialon 03-30 Basophils 0.10 K/mcL Invalid Interpretation Code 0.00 - 0.30 [facility] Basophils/100 leukocytes 1.0 % Invalid Interpretation Code [facility] Eosinophils 0.23 K/mcL Invalid Interpretation Code 0.00 - 0.50 [facility] Eosinophils/100 leukocytes 2.3 % Invalid Interpretation Code [facility] Erythrocytes (RBC) 4.36 M/mcL Low 4.50 - 5.90 [facility] AB Erythrocytes (RBC) 0.00 K/mcL Invalid Interpretation Code 0.00 - 0.00 [facility] Hematocrit (HCT) 42.1 % Invalid Interpretation Code 41 - 53 % [facility] Hemoglobin (HGB) 13.4 g/dL Low 13.5 - 17.5 g/dL [facility] IG Absolute 0.04 K/mcL Invalid Interpretation Code 0.00 - 0.30 [facility] IG Percent 0.40 % Invalid Interpretation Code [facility] Interpretation and review of laboratory results Abnormal Invalid Interpretation Code [facility] Lymphocytes 1.78 K/mcL Invalid Interpretation Code 0.90 - 4.00 [facility] Lymphocytes/100 leukocytes 17.8 % Invalid Interpretation Code [facility] MCH 30.7 pg Invalid Interpretation Code 26 - 34 pg [facility] MCHC 31.8 g/dL Invalid Interpretation Code 31 - 37 g/dL [facility] MCV 96.6 fL Invalid Interpretation Code 80 - 100 fL [facility] Monocytes 1.38 K/mcL High 0.30 - 0.90 [facility] Monocytes/100 leukocytes 13.8 % Invalid Interpretation Code [facility] Neutrophils 6.45 K/mcL Invalid Interpretation Code 1.70 - 7.00 [facility] Neutrophils/100 leukocytes 64.7 % Invalid Interpretation Code [facility] Nucleated erythrocytes/100 erythrocytes 0.0 % Invalid Interpretation Code [facility] Platelet mean volume (PMV) 10.0 fL Invalid Interpretation Code 9 - 15.5 fL [facility] Platelets 273 K/mcL Invalid Interpretation Code 150 - 400 [facility] RDW-CA 12.4 % Invalid Interpretation Code 11.6 - 14.8 % [facility] WBC (Leukocytes) 9.98 K/mcL Invalid Interpretation Code 4.50 - 11.00 [facility] CBC w/ Diffon 04-27-2017 Creatinine The following orders were created for panel order CBC w/ Diff. Procedure Abnormality Status --------- ------ CBC Auto Differential[[id number] ] Abnormal Final result Please view results for these tests on the individual orders. Invalid Interpretation Code [employer] Work Phone: EKG 12-leadon 04-27-2017 EKG 12-lead Delores Thomas MD 04/27/2017 3:16 PM EKG 12-lead Date/Time: 04/27/2017 11:35 AM Performed by: DELORES THOMAS Authorized by: FILIBERTO FINLEY Interpreted by ED attending physician Comparison: not compared with previous ECG Rhythm: sinus rhythm BPM: 61 Conduction: conduction normal ST Segments: ST segments normal T Inversion: V1 Clinical impression: non-specific ECG Invalid Interpretation Code [facility] Work Phone: Influenza A,B Rapid Molecula nithin 04-27-2017 Influenza A Not Detected Invalid Interpretation Code Not Detected [facility] Influenza B Not Detected Invalid Interpretation Code Not Detected [facility] Influenza A,B Rapid Molecular Test Method: Nucleic Acid Amplification Invalid Interpretation Code [facility] Light Blue Topon 04-27-2017 Extra Tube Hold for add-ons. Invalid Interpretation Code [facility] NT Pro BNPon 04-27-2017 BNP 241 pg/mL Invalid Interpretation Code 0 - 300 pg/mL [facility] Interpretation and review of laboratory results Normal Invalid Interpretation Code [facility] NT Pro BNP Pride Study Cut-offs Rule In: < /= 50 Years >450 pg/mL 51 Years- 75 Years >900 pg/mL 76 Years - 99 Years >1800 pg/mL Rule Out: All patients <300 pg/mL Invalid Interpretation Code [facility] [place] Drawon 04-27-2017 Creatinine The following orders were created for panel order [place] Draw. Procedure Abnormality Status --------- ------ Light Blue Top[[id number]] Final result [place] Top[[id number]] Final result Urine Culture [place] Conta...[[id number]] Final result Please view results for these tests on the individual orders. Invalid Interpretation Code [facility] Work Phone: Troponinon 04-27-2017 Troponin T ug/L Invalid Interpretation Code <0.040 ng/mL [facility] Urinalysison 04-27-2017 Bilirubin, Urine Negative Invalid Interpretation Code Negative [facility] Blood, Urine Negative Invalid Interpretation Code Negative [facility] Interpretation and review of laboratory results Abnormal Invalid Interpretation Code [facility] Nitrite, Urine Negative Invalid Interpretation Code Negative [facility] RBCs, Urine 2 /hpf Invalid Interpretation Code 0 - 3 [facility] Urine, bacteria in sediment None Seen Invalid Interpretation Code None Seen /hpf [facility] Urine, clarity Clear Invalid Interpretation Code Clear [facility] Urine, color Colorless Invalid Interpretation Code Colorless, Yellow [facility] Urine, glucose presence Negative Invalid Interpretation Code Negative mg/dL [facility] Urine, ketones presence Negative Invalid Interpretation Code Negative mg/dL [facility] Urine, leukocyte esterase presence Negative Invalid Interpretation Code Negative [facility] Urine, pH 8.0 [pH] High 5.0 - 7.0 [facility] Urine, protein Negative Invalid Interpretation Code Negative mg/dL [facility] Urine, specific gravity 1.013 1 Invalid Interpretation Code 1.005 - 1.025 [facility] Urine, urobilinogen <2.0 Invalid Interpretation Code <2.0 mg/dL [facility] WBCs, Urine <1 Invalid Interpretation Code 0 - 5 /hpf [facility] Urinalysis Microscopic examination is performed on all urinalysis samples and only positive findings are reported. The test for blood on the chemical analytic portion of urinalysis may also be positive due to hemoglobinuria and myoglobinuria and if red blood cells are present they are quantified by microscopic examination. Invalid Interpretation Code [facility] Urine Culture [place] [employer] on 04-27-2017 Urine Culture [place] [facility] Invalid Interpretation Code [facility] XR Chest AP/PA and LATon XR Chest AP/PA and LAT No acute cardiopulmonary disease. [employer] Workstation ID: [id number] Invalid Interpretation Code [employer] [facility] XR Chest AP/PA and LAT EXAMINATION: TWO VIEWS OF THE CHEST 04/27/2017 12:33 pm COMPARISON: 03/22/2015. HISTORY: ORDERING SYSTEM PROVIDED HISTORY: cough/sob/cp; TECHNOLOGIST PROVIDED HISTORY: Reason for Exam: cough/sob/cp Illness/Other Acuity: Acute Cancer History: Skin Surgery, Radiation History: no Type of Encounter: Initial FINDINGS: No lines or tubes. Normal cardiomediastinal silhouette. The lungs are clear without focal consolidation or pleural effusion. No suspicious pulmonary nodules. No pulmonary edema. No pneumothorax. No acute osseous abnormality. Invalid Interpretation Code [employer] [facility] XR Chest AP/PA and LAT Interface, Rad In [employer] - 04/27/2017 2:20 PM EST EXAMINATION: TWO VIEWS OF THE CHEST 04/27/2017 12:33 pm COMPARISON: 03/22/2015. HISTORY: ORDERING SYSTEM PROVIDED HISTORY: cough/sob/cp; TECHNOLOGIST PROVIDED HISTORY: Reason for Exam: cough/sob/cp Illness/Other Acuity: Acute Cancer History: Skin Surgery, Radiation History: no Type of Encounter: Initial FINDINGS: No lines or tubes. Normal cardiomediastinal silhouette. The lungs are clear without focal consolidation or pleural effusion. No suspicious pulmonary nodules. No pulmonary edema. No pneumothorax. No acute osseous abnormality. IMPRESSION: No acute cardiopulmonary disease. [employer]/dandre Workstation ID: [id number] Invalid Interpretation Code [facility] [place] XR Lumbar Spine 2-3 Views (S tandard)on 01-14-2017 XR Lumbar Spine 2-3 Views (Standard) 1. No acute findings in the lumbar spine. 2. Mild to moderate lumbar spine degenerative changes. 3. Unchanged grade 1 anterolisthesis of L4 on L5, most likely degenerative in nature. 4. Bony demineralization. Workstation ID: [id number] Invalid Interpretation Code [facility] [place] XR Lumbar Spine 2-3 Views (Standard) EXAMINATION: 3 VIEWS OF THE LUMBAR SPINE 01/14/2017 3:23 pm COMPARISON: Chest radiograph 04/13/2012, lumbar spine radiograph 11/09/2010 HISTORY: ORDERING SYSTEM PROVIDED HISTORY: Low back pain; TECHNOLOGIST PROVIDED HISTORY: Reason for Exam: Pain on and off Illness/Other Comment: Accident in the past Acuity: Chronic Cancer History: Skin Surgery, Radiation History: no Type of Encounter: Subsequent/Follow-up Additional signs and symptoms: Radiates down to hip and legs and tup to neck ORDERING SYSTEM PROVIDED DIAGNOSIS CODES: M54.5 Low back pain FINDINGS: Bilateral vestigial ribs at T12. Diffuse osseous demineralization. No acute fracture. Straightening of lumbar lordosis. Unchanged grade 1 anterolisthesis of L4 on L5, measuring approximately 0.4 cm. Moderate degenerative disc disease at L5/S1 with minimal to mild involvement at other levels. Mild to severe facet hypertrophy, most severe at L4/L5. Invalid Interpretation Code [facility] [place] XR Lumbar Spine 2-3 Views (Standard) Interface, Rad In [employer] - 01/14/2017 5:17 PM EDT EXAMINATION: 3 VIEWS OF THE LUMBAR SPINE 01/14/2017 3:23 pm COMPARISON: Chest radiograph 04/13/2012, lumbar spine radiograph 11/09/2010 HISTORY: ORDERING SYSTEM PROVIDED HISTORY: Low back pain; TECHNOLOGIST PROVIDED HISTORY: Reason for Exam: Pain on and off Illness/Other Comment: Accident in the past Acuity: Chronic Cancer History: Skin Surgery, Radiation History: no Type of Encounter: Subsequent/Follow-up Additional signs and symptoms: Radiates down to hip and legs and tup to neck ORDERING SYSTEM PROVIDED DIAGNOSIS CODES: M54.5 Low back pain FINDINGS: Bilateral vestigial ribs at T12. Diffuse osseous demineralization. No acute fracture. Straightening of lumbar lordosis. Unchanged grade 1 anterolisthesis of L4 on L5, measuring approximately 0.4 cm. Moderate degenerative disc disease at L5/S1 with minimal to mild involvement at other levels. Mild to severe facet hypertrophy, most severe at L4/L5. IMPRESSION: 1. No acute findings in the lumbar spine. 2. Mild to moderate lumbar spine degenerative changes. 3. Unchanged grade 1 anterolisthesis of L4 on L5, most likely degenerative in nature. 4. Bony demineralization. Workstation ID: [id number] Invalid Interpretation Code [employer] [facility] Influenza virus A and B and SARS-CoV-2 (COVID-19) Ag panel - Upper respiratory specim SARS-CoV-2 (COVID-19) RNA STEPHEN+probe Ql (Resp) [facility] Work Phone: No Panel Information SARS-CoV-2 & FLU Antigen (Rapid) [facility] Work Phone: Vital Signs Date Time Vital Sign Value Performing Clinician Nathan smith 11-23-2024 14:39-0400 Diastolic blood pressure 71 mm[Hg] Alissa Rachel DO Work Phone: [facility] 11-23-2024 14:39-0400 Heart rate 60 /min Alissa Rachel DO Work Phone: [facility] 11-23-2024 14:39-0400 SaO2% (BldA) [Mass fraction] 97 % Alissa Rachel DO Work Phone: [facility] 11-23-2024 14:39-0400 Systolic blood pressure 102 mm[Hg] Alissa Rachel DO Work Phone: [facility] 10-19-2024 11:30-0400 Diastolic blood pressure 64 mm[Hg] Alissa Rachel DO Work Phone: [facility] 10-19-2024 11:30-0400 Heart rate 68 /min Alissa Rachel DO Work Phone: [facility] 10-19-2024 11:30-0400 SaO2% (BldA) [Mass fraction] 97 % Alissa Rachel DO Work Phone: [facility] 10-19-2024 11:30-0400 Systolic blood pressure 110 mm[Hg] Alissa Rachel DO Work Phone: [facility] 10-01-2024 12:49-0400 Body mass index (BMI) [Ratio] 31.66 kg/m2 Leah Neel 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 Work Phone: [facility] 10-01-2024 12:49-0400 Body weight 91.7 kg Leah Neel 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 Work Phone: [facility] 10-01-2024 12:49-0400 Diastolic blood pressure 78 mm[Hg] Leah Neel 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 Work Phone: [facility] 10-01-2024 12:49-0400 Heart rate 94 /min Leah Neel 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 Work Phone: [facility] 10-01-2024 12:49-0400 Respiratory rate 12 /min Leah Neel 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 Work Phone: [facility] 10-01-2024 12:49-0400 SaO2% (BldA) [Mass fraction] 98 % Leah Neel 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 Work Phone: [facility] 10-01-2024 12:49-0400 Systolic blood pressure 122 mm[Hg] Leah Neel 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 Work Phone: [facility] 09-03-2024 12:36-0400 Body mass index (BMI) [Ratio] 31.28 kg/m2 Leah Neel 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 Work Phone: [facility] 09-03-2024 12:36-0400 Body weight 90.6 kg Leah Neel 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 Work Phone: [facility] 09-03-2024 12:36-0400 Diastolic blood pressure 86 mm[Hg] Leah Neel 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 Work Phone: [facility] 09-03-2024 12:36-0400 Heart rate 58 /min Leah Neel 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 Work Phone: [facility] 09-03-2024 12:36-0400 Respiratory rate 14 /min Leah Neel 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 Work Phone: [facility] 09-03-2024 12:36-0400 SaO2% (BldA) [Mass fraction] 99 % Leah Neel 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 Work Phone: [facility] 09-03-2024 12:36-0400 Systolic blood pressure 116 mm[Hg] Leah Neel 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 Work Phone: [facility] 08-30-2024 12:44-0400 Body mass index (BMI) [Ratio] 31.39 kg/m2 Leah Neel 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 Work Phone: [facility] 08-30-2024 12:44-0400 Body weight 90.9 kg Leah Neel 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 Work Phone: [facility] 08-30-2024 12:44-0400 Diastolic blood pressure 66 mm[Hg] Leah Neel 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 Work Phone: [facility] 08-30-2024 12:44-0400 Heart rate 72 /min Leah Neel 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 Work Phone: [facility] 08-30-2024 12:44-0400 Respiratory rate 14 /min Leah Neel 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 Work Phone: [facility] 08-30-2024 12:44-0400 SaO2% (BldA) [Mass fraction] 96 % Leah Neel 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 Work Phone: [facility] 08-30-2024 12:44-0400 Systolic blood pressure 100 mm[Hg] Leah Neel 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 Work Phone: [facility] 08-19-2024 11:28-0400 Body mass index (BMI) [Ratio] 31.42 kg/m2 Ольга Renita 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 Work Phone: [facility] 08-19-2024 11:28-0400 Body weight 90.99 kg Ольга Renita 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 Work Phone: [facility] 08-19-2024 11:28-0400 Diastolic blood pressure 62 mm[Hg] Ольга Renita 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 Work Phone: [facility] 08-19-2024 11:28-0400 Heart rate 64 /min Ольга Renita 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 Work Phone: [facility] 08-19-2024 11:28-0400 Respiratory rate 18 /min Ольга Renita 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 Work Phone: [facility] 08-19-2024 11:28-0400 SaO2% (BldA) [Mass fraction] 93 % Ольга Renita 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 Work Phone: [facility] 08-19-2024 11:28-0400 Systolic blood pressure 98 mm[Hg] Ольга Renita 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 Work Phone: [facility] 08-11-2024 14:12-0400 Body temperature 98.29 [degF] Victoria Adrien 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 Work Phone: [facility] 07-20-2024 12:21-0400 Body height 170.2 cm [facility] 1 Work Phone: [facility] 07-20-2024 12:21-0400 Body mass index (BMI) [Ratio] 31.17 kg/m2 Pacc 1 Work Phone: [facility] 07-20-2024 12:21-0400 Body temperature 98.2 [degF] Pacc 1 Work Phone: [facility] 07-20-2024 12:21-0400 Body weight 90.27 kg Pacc 1 Work Phone: [facility] 07-20-2024 12:21-0400 Diastolic blood pressure 62 mm[Hg] Pacc 1 Work Phone: [facility] 07-20-2024 12:21-0400 Heart rate 52 /min Pacc 1 Work Phone: [facility] 07-20-2024 12:21-0400 Respiratory rate 14 /min Pacc 1 Work Phone: [facility] 07-20-2024 12:21-0400 SaO2% (BldA) [Mass fraction] 94 % Pacc 1 Work Phone: [facility] 07-20-2024 12:21-0400 Systolic blood pressure 134 mm[Hg] Pacc 1 Work Phone: [facility] 07-20-2024 10:27-0400 Body height 170.2 cm Homero Escamilla MD Work Phone: [facility] 07-20-2024 10:27-0400 Body mass index (BMI) [Ratio] 31.48 kg/m2 Homero Escamilla MD Work Phone: [facility] 07-20-2024 10:27-0400 Body weight 91.17 kg Hmoero Escamilla MD Work Phone: [facility] 07-20-2024 10:27-0400 Diastolic blood pressure 58 mm[Hg] Homero Escamilla MD Work Phone: [facility] 07-20-2024 10:27-0400 Heart rate 65 /min Homero Escamilla MD Work Phone: [facility] 07-20-2024 10:27-0400 Respiratory rate 16 /min Homero Escamilla MD Work Phone: [facility] 07-20-2024 10:27-0400 SaO2% (BldA) [Mass fraction] 93 % Homero Escamilla MD Work Phone: [facility] 07-20-2024 10:27-0400 Systolic blood pressure 128 mm[Hg] Homero Escamilla MD Work Phone: [facility] 07-20-2024 10:26-0400 Body height 170.2 cm Pulm Wstr Work Phone: [facility] 07-20-2024 10:26-0400 Body mass index (BMI) [Ratio] 31.48 kg/m2 Pulm Wstr Work Phone: [facility] 07-20-2024 10:26-0400 Body weight 91.17 kg Pulm Wstr Work Phone: [facility] 07-20-2024 10:26-0400 Heart rate 65 /min Pulm Wstr Work Phone: [facility] 07-20-2024 10:26-0400 Respiratory rate 16 /min Pulm Wstr Work Phone: [facility] 07-20-2024 10:26-0400 SaO2% (BldA) [Mass fraction] 93 % Pulm Wstr Work Phone: [facility] 07-15-2024 13:39-0400 Body mass index (BMI) [Ratio] 30.38 kg/m2 Michelle Castaneda MD Work Phone: [facility] 07-15-2024 13:39-0400 Body temperature 98.2 [degF] Michelle Castaneda MD Work Phone: [facility] 07-15-2024 13:39-0400 Body weight 88 kg Michelle Castaneda MD Work Phone: [facility] 07-15-2024 13:39-0400 Diastolic blood pressure 70 mm[Hg] Michelle Castaneda MD Work Phone: [facility] 07-15-2024 13:39-0400 Heart rate 80 /min Michelle Castaneda MD Work Phone: [facility] 07-15-2024 13:39-0400 Respiratory rate 17 /min Michelle Castaneda MD Work Phone: [facility] 07-15-2024 13:39-0400 SaO2% (BldA) [Mass fraction] 95 % Michelle Castaneda MD Work Phone: [facility] 07-15-2024 13:39-0400 Systolic blood pressure 116 mm[Hg] Michelle Castaneda MD Work Phone: [facility] 05-31-2024 17:06-0500 Body mass index (BMI) [Ratio] 33.25 kg/m2 Samir Jordan MD Work Phone: [facility] 05-31-2024 17:06-0500 Body temperature 98.49 [degF] Samir Jordan MD Work Phone: [facility] 05-31-2024 17:06-0500 Body weight 96.3 kg Samir Jordan MD Work Phone: [facility] 05-31-2024 17:06-0500 Diastolic blood pressure 62 mm[Hg] Samir Jordan MD Work Phone: [facility] 05-31-2024 17:06-0500 Heart rate 72 /min Samir Jordan MD Work Phone: [facility] 05-31-2024 17:06-0500 Respiratory rate 24 /min Samir Jordan MD Work Phone: [facility] 05-31-2024 17:06-0500 SaO2% (BldA) [Mass fraction] 94 % Samir Jordan MD Work Phone: [facility] 05-31-2024 17:06-0500 Systolic blood pressure 88 mm[Hg] Samir Jordan MD Work Phone: [facility] 04-25-2024 10:51-0500 Body mass index (BMI) [Ratio] 30.49 kg/m2 Shantelle Billy 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 Work Phone: [facility] 04-25-2024 10:51-0500 Body temperature 98.4 [degF] Shantelle Billy 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 Work Phone: [facility] 04-25-2024 10:51-0500 Body weight 88.3 kg Shantelle Billy 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 Work Phone: [facility] 04-25-2024 10:51-0500 Diastolic blood pressure 60 mm[Hg] Shantelle Billy 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 Work Phone: [facility] 04-25-2024 10:51-0500 Heart rate 79 /min Shantelle Billy 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 Work Phone: [facility] 04-25-2024 10:51-0500 Respiratory rate 20 /min Shantelle Billy 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 Work Phone: [facility] 04-25-2024 10:51-0500 SaO2% (BldA) [Mass fraction] 96 % Shantelle Billy 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 Work Phone: [facility] 04-25-2024 10:51-0500 Systolic blood pressure 82 mm[Hg] Shantelle Billy 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 Work Phone: [facility] 04-14-2024 12:56-0500 Body mass index (BMI) [Ratio] 31.08 kg/m2 Samir Jordan MD Work Phone: [facility] 04-14-2024 12:56-0500 Body temperature 98.01 [degF] Samir Jordan MD Work Phone: [facility] 04-14-2024 12:56-0500 Body weight 90 kg Samir Jordan MD Work Phone: [facility] 04-14-2024 12:56-0500 Diastolic blood pressure 62 mm[Hg] Samir Jordan MD Work Phone: [facility] 04-14-2024 12:56-0500 Heart rate 68 /min Samir Jordan MD Work Phone: [facility] 04-14-2024 12:56-0500 Respiratory rate 18 /min Samir Jordan MD Work Phone: [facility] 04-14-2024 12:56-0500 Systolic blood pressure 102 mm[Hg] Samir Jordan MD Work Phone: [facility] 11-26-2023 15:01-0400 Body mass index (BMI) [Ratio] 30.84 kg/m2 Samir Jordan MD Work Phone: [facility] 11-26-2023 15:01-0400 Body temperature 97.81 [degF] Samir Jordan MD Work Phone: [facility] 11-26-2023 15:01-0400 Body weight 89.31 kg Samir Jordan MD Work Phone: [facility] 11-26-2023 15:01-0400 Diastolic blood pressure 64 mm[Hg] Samir Jordan MD Work Phone: [facility] 11-26-2023 15:01-0400 Heart rate 72 /min Samir Jordan MD Work Phone: [facility] 11-26-2023 15:01-0400 Respiratory rate 18 /min Samir Jordan MD Work Phone: [facility] 11-26-2023 15:01-0400 Systolic blood pressure 100 mm[Hg] Samir Jordan MD Work Phone: [facility] 11-11-2023 12:10-0400 Body mass index (BMI) [Ratio] 31.79 kg/m2 Leah Shaikh 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 Work Phone: [facility] 11-11-2023 12:10-0400 Body temperature 98.4 [degF] Leah Shaikh 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 Work Phone: [facility] 11-11-2023 12:10-0400 Body weight 92.08 kg Leah Neel 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 Work Phone: [facility] 11-11-2023 12:10-0400 Diastolic blood pressure 64 mm[Hg] Leah Neel 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 Work Phone: [facility] 11-11-2023 12:10-0400 Heart rate 60 /min Leah Neel 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 Work Phone: [facility] 11-11-2023 12:10-0400 Respiratory rate 22 /min Leah Neel 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 Work Phone: [facility] 11-11-2023 12:10-0400 SaO2% (BldA) [Mass fraction] 93 % Leah Neel 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 Work Phone: [facility] 11-11-2023 12:10-0400 Systolic blood pressure 102 mm[Hg] Leah Neel 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 Work Phone: [facility] 10-13-2023 15:26-0400 Body mass index (BMI) [Ratio] 32.42 kg/m2 Samir Jordan MD Work Phone: [facility] 10-13-2023 15:26-0400 Body temperature 98.1 [degF] Samir Jordan MD Work Phone: [facility] 10-13-2023 15:26-0400 Body weight 93.89 kg Samir Jordan MD Work Phone: [facility] 10-13-2023 15:26-0400 Diastolic blood pressure 62 mm[Hg] Samir Jordan MD Work Phone: [facility] 10-13-2023 15:26-0400 Heart rate 64 /min Samir Jordan MD Work Phone: [facility] 10-13-2023 15:26-0400 Respiratory rate 20 /min Samir Jordan MD Work Phone: [facility] 10-13-2023 15:26-0400 SaO2% (BldA) [Mass fraction] 93 % Samir Jordan MD Work Phone: [facility] 10-13-2023 15:26-0400 Systolic blood pressure 100 mm[Hg] Samir Jordan MD Work Phone: [facility] 10-11-2023 12:18-0400 Body mass index (BMI) [Ratio] 32.56 kg/m2 Varinder Rey 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 Work Phone: [facility] 10-11-2023 12:18-0400 Body temperature 98.29 [degF] Varinder Rey 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 Work Phone: [facility] 10-11-2023 12:18-0400 Body weight 94.3 kg Varinder Rey APRN.ASSISTANT TODDLER TEACHER Work Phone: [facility] 10-11-2023 12:18-0400 Diastolic blood pressure 62 mm[Hg] Varinder Rey 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 Work Phone: [facility] 10-11-2023 12:18-0400 Heart rate 80 /min Varinder Rey 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 Work Phone: [facility] 10-11-2023 12:18-0400 Respiratory rate 20 /min Varinder Rey APRN.ASSISTANT TODDLER TEACHER Work Phone: [facility] 10-11-2023 12:18-0400 SaO2% (BldA) [Mass fraction] 93 % Varinder Rey 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 Work Phone: [facility] 10-11-2023 12:18-0400 Systolic blood pressure 98 mm[Hg] Varinder Rey 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 Work Phone: [facility] 08-22-2023 11:46-0400 Body mass index (BMI) [Ratio] 30.7 kg/m2 Leah Shaikh APRN.ASSISTANT TODDLER TEACHER Work Phone: [facility] 08-22-2023 11:46-0400 Body weight 88.91 kg Leah Shaikh APRN.ASSISTANT TODDLER TEACHER Work Phone: [facility] 08-22-2023 11:46-0400 Diastolic blood pressure 78 mm[Hg] Leah Neel 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 Work Phone: [facility] 08-22-2023 11:46-0400 Heart rate 57 /min Leah Neel 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 Work Phone: [facility] 08-22-2023 11:46-0400 Respiratory rate 14 /min Leah Neel 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 Work Phone: [facility] 08-22-2023 11:46-0400 SaO2% (BldA) [Mass fraction] 97 % Leah Neel 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 Work Phone: [facility] 08-22-2023 11:46-0400 Systolic blood pressure 118 mm[Hg] Leah Neel 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 Work Phone: [facility] 07-30-2023 14:47-0400 Body weight 92.35 kg Calli Thang PA-C Work Phone: [facility] 07-30-2023 14:47-0400 Diastolic blood pressure 72 mm[Hg] Calli Thang PA-C Work Phone: [facility] 07-30-2023 14:47-0400 Heart rate 58 /min Calli Thang PA-C Work Phone: [facility] 07-30-2023 14:47-0400 SaO2% (BldA) [Mass fraction] 93 % Calli Thang PA-C Work Phone: [facility] 07-30-2023 14:47-0400 Systolic blood pressure 138 mm[Hg] Calli Thang PA-C Work Phone: [facility] 07-27-2023 02:24-0400 Body temperature 98.1 [degF] [facility] 07-27-2023 02:24-0400 Diastolic blood pressure 74 mm[Hg] [facility] 07-27-2023 02:24-0400 Heart rate 65 /min [facility] 07-27-2023 02:24-0400 Respiratory rate 15 /min [facility] 07-27-2023 02:24-0400 SaO2% (BldA) [Mass fraction] 95 % [facility] 07-27-2023 02:24-0400 Systolic blood pressure 124 mm[Hg] [facility] 07-26-2023 22:38-0400 Body height 172.72 cm [facility] 07-17-2023 12:52-0400 Body temperature 98.4 [degF] Samir Jordan MD Work Phone: [facility] 07-17-2023 12:52-0400 Body weight 90.27 kg Samir Jordan MD Work Phone: [facility] 07-17-2023 12:52-0400 Diastolic blood pressure 70 mm[Hg] Samir Jordan MD Work Phone: [facility] 07-17-2023 12:52-0400 Heart rate 80 /min Samir Jordan MD Work Phone: [facility] 07-17-2023 12:52-0400 Respiratory rate 16 /min Samir Jordan MD Work Phone: [facility] 07-17-2023 12:52-0400 Systolic blood pressure 126 mm[Hg] Samir Jordan MD Work Phone: [facility] 06-26-2023 14:46-0500 Diastolic blood pressure 82 mm[Hg] Samir Jordan MD Work Phone: [facility] 06-26-2023 14:46-0500 Heart rate 64 /min Samir Jordan MD Work Phone: [facility] 06-26-2023 14:46-0500 Systolic blood pressure 146 mm[Hg] Samir Jordan MD Work Phone: [facility] 06-26-2023 14:42-0500 Body temperature 97.59 [degF] Samir Jordan MD Work Phone: [facility] 06-26-2023 14:42-0500 Body weight 92.72 kg Samir Jordan MD Work Phone: [facility] 06-15-2023 06:32-0500 Body temperature 97.5 [degF] [facility] 06-15-2023 06:32-0500 Diastolic blood pressure 70 mm[Hg] [facility] 06-15-2023 06:32-0500 Heart rate 70 /min [facility] 06-15-2023 06:32-0500 Respiratory rate 16 /min [facility] 06-15-2023 06:32-0500 SaO2% (BldA) [Mass fraction] 96 % [facility] 06-15-2023 06:32-0500 Systolic blood pressure 123 mm[Hg] [facility] 06-15-2023 02:17-0500 Body height 170.18 cm [facility] 06-15-2023 02:17-0500 Body mass index (BMI) [Ratio] 32.6 kg/m2 [facility] 06-15-2023 02:17-0500 Body weight 94.5 kg [facility] 06-04-2023 12:30-0500 Body temperature 98.4 [degF] Samir Jordan MD Work Phone: [facility] 06-04-2023 12:30-0500 Body weight 94.76 kg Samir Jordan MD Work Phone: [facility] 06-04-2023 12:30-0500 Diastolic blood pressure 72 mm[Hg] Samir Jordan MD Work Phone: [facility] 06-04-2023 12:30-0500 Heart rate 76 /min Samir Jordan MD Work Phone: [facility] 06-04-2023 12:30-0500 Respiratory rate 16 /min Samir Jordan MD Work Phone: [facility] 06-04-2023 12:30-0500 Systolic blood pressure 120 mm[Hg] Samir Jordan MD Work Phone: [facility] 03-27-2023 16:47-0500 Body weight 94.8 kg Samir Jordan MD Work Phone: [facility] 03-27-2023 16:47-0500 Diastolic blood pressure 70 mm[Hg] Samir Jordan MD Work Phone: [facility] 03-27-2023 16:47-0500 Heart rate 76 /min Samir Jordan MD Work Phone: [facility] 03-27-2023 16:47-0500 Respiratory rate 18 /min Samir Jordan MD Work Phone: [facility] 03-27-2023 16:47-0500 SaO2% (BldA) [Mass fraction] 94 % Samir Jordan MD Work Phone: [facility] 03-27-2023 16:47-0500 Systolic blood pressure 122 mm[Hg] Samir Jordan MD Work Phone: [facility] 02-09-2023 13:30-0400 Body height 170.[address] Samir Jordan Work Phone: [facility] 02-09-2023 13:30-0400 Body mass index (BMI) [Ratio] 34.5 kg/m2 Dr. Samir Jordan Work Phone: [facility] 02-09-2023 13:30-0400 Body temperature 97.4 [degF] Dr. Samir Jordan Work Phone: [phone] [place] [address] 02-09-2023 13:30-0400 Body weight 100.[address] Samir Jordan Work Phone: [facility] 02-09-2023 13:30-0400 Diastolic blood pressure 110 mm[Hg] Dr. Samir Jordan Work Phone: [facility] 02-09-2023 13:30-0400 Heart rate 68 /min Dr. Samir Jordan Work Phone: [phone] [place] [address] 02-09-2023 13:30-0400 Respiratory rate 18 /min Dr. Samir Jordan Work Phone: [facility] 02-09-2023 13:30-0400 SaO2% (BldA) [Mass fraction] 96 % Dr. Samir Jordan Work Phone: [facility] 02-09-2023 13:30-0400 Systolic blood pressure 149 mm[Hg] Dr. Samir Jordan Work Phone: [facility] 01-28-2023 14:00-0400 Body weight 96.16 kg Homero Escamilla MD Work Phone: [facility] 01-28-2023 14:00-0400 Diastolic blood pressure 68 mm[Hg] Homero Escamilla MD Work Phone: [facility] 01-28-2023 14:00-0400 Heart rate 76 /min Homero Escamilla MD Work Phone: [facility] 01-28-2023 14:00-0400 Respiratory rate 18 /min Homero Escamilla MD Work Phone: [facility] 01-28-2023 14:00-0400 SaO2% (BldA) [Mass fraction] 96 % Homero Escamilla MD Work Phone: [facility] 01-28-2023 14:00-0400 Systolic blood pressure 120 mm[Hg] Homero Escamilla MD Work Phone: [facility] 01-15-2023 15:23-0400 Body temperature 96.69 [degF] Leah Older 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 Work Phone: [facility] 01-15-2023 15:23-0400 Body weight 97.98 kg Leah Older 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 Work Phone: [facility] 01-15-2023 15:23-0400 Diastolic blood pressure 68 mm[Hg] Leah Older 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 Work Phone: [facility] 01-15-2023 15:23-0400 Heart rate 68 /min Leah Older 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 Work Phone: [facility] 01-15-2023 15:23-0400 SaO2% (BldA) [Mass fraction] 95 % Leah Older 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 Work Phone: [facility] 01-15-2023 15:23-0400 Systolic blood pressure 126 mm[Hg] Leah Older 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 Work Phone: [facility] 12-26-2022 15:41-0400 Body weight 94.35 kg Samir Jordan MD Work Phone: [facility] 12-26-2022 15:41-0400 Diastolic blood pressure 70 mm[Hg] Samir Jordan MD Work Phone: [facility] 12-26-2022 15:41-0400 Heart rate 84 /min Samir Jordan MD Work Phone: [facility] 12-26-2022 15:41-0400 Respiratory rate 20 /min Samir Jordna MD Work Phone: [facility] 12-26-2022 15:41-0400 SaO2% (BldA) [Mass fraction] 95 % Samir Jordan MD Work Phone: [facility] 12-26-2022 15:41-0400 Systolic blood pressure 110 mm[Hg] Samir Jordan MD Work Phone: [facility] 12-24-2022 14:48-0400 Heart rate 70 /min Dr. Samir Jordan Work Phone: [facility] 12-24-2022 14:45-0400 Body temperature 97.6 [degF] Dr. Samir Jordan Work Phone: [facility] 12-24-2022 14:45-0400 Diastolic blood pressure 62 mm[Hg] Dr. Samir Jordan Work Phone: [facility] 12-24-2022 14:45-0400 Respiratory rate 18 /min Dr. Samir Jordan Work Phone: [facility] 12-24-2022 14:45-0400 SaO2% (BldA) [Mass fraction] 94 % Dr. Samir Jordan Work Phone: [facility] 12-24-2022 14:45-0400 Systolic blood pressure 95 mm[Hg] Dr. Samir Jordan Work Phone: [facility] 12-24-2022 13:09-0400 Inhaled oxygen flow rate 2 L/min Dr. Samir Jordan Work Phone: [facility] 12-24-2022 05:34-0400 Body mass index (BMI) [Ratio] 31.9 kg/m2 Dr. Samir Jordan Work Phone: [facility] 12-24-2022 05:34-0400 Body weight 92.[address] Samir Jordan Work Phone: [facility] 12-22-2022 02:49-0400 Body height 170.[address] Samir Jordan Work Phone: [facility] 12-22-2022 02:41-0400 Body temperature 97.9 [degF] [facility] 12-22-2022 02:41-0400 Diastolic blood pressure 88 mm[Hg] [facility] 12-22-2022 02:41-0400 Heart rate 89 /min [facility] 12-22-2022 02:41-0400 Inhaled oxygen flow rate 2 L/min [facility] 12-22-2022 02:41-0400 Respiratory rate 24 /min [facility] 12-22-2022 02:41-0400 SaO2% (BldA) [Mass fraction] 91 % [facility] 12-22-2022 02:41-0400 Systolic blood pressure 155 mm[Hg] [facility] 12-21-2022 21:30-0400 Body height 170.18 cm [facility] 12-21-2022 21:30-0400 Body mass index (BMI) [Ratio] 34.2 kg/m2 [facility] 12-21-2022 21:30-0400 Body weight 99.1 kg [facility] 11-30-2022 12:00-0400 Diastolic blood pressure 101 mm[Hg] [facility] 11-30-2022 12:00-0400 Heart rate 65 /min [facility] 11-30-2022 12:00-0400 Respiratory rate 18 /min [facility] 11-30-2022 12:00-0400 SaO2% (BldA) [Mass fraction] 95 % [facility] 11-30-2022 12:00-0400 Systolic blood pressure 164 mm[Hg] [facility] 11-30-2022 08:00-0400 Body height 170.18 cm [facility] 11-30-2022 08:00-0400 Body mass index (BMI) [Ratio] 32.8 kg/m2 [facility] 11-30-2022 08:00-0400 Body temperature 96.8 [degF] [facility] 11-30-2022 08:00-0400 Body weight 95.25 kg [facility] 10-22-2022 13:43-0400 Body weight 95.71 kg Eliana Cortes 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 Work Phone: [facility] 10-22-2022 13:43-0400 Diastolic blood pressure 76 mm[Hg] Eliana Concepcionter 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 Work Phone: [facility] 10-22-2022 13:43-0400 Heart rate 54 /min Eliana Concepcionter 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 Work Phone: [facility] 10-22-2022 13:43-0400 Respiratory rate 17 /min Eliana Concepcionter 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 Work Phone: [facility] 10-22-2022 13:43-0400 SaO2% (BldA) [Mass fraction] 99 % Eliana Cortes 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 Work Phone: [facility] 10-22-2022 13:43-0400 Systolic blood pressure 122 mm[Hg] Eliana [place] 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 Work Phone: [facility] 10-14-2022 13:06-0400 Body weight 95.71 kg Calli Thang PA-C Work Phone: [facility] 10-14-2022 13:06-0400 Diastolic blood pressure 64 mm[Hg] Calli Thang PA-C Work Phone: [facility] 10-14-2022 13:06-0400 Heart rate 73 /min Calli Thang PA-C Work Phone: [facility] 10-14-2022 13:06-0400 Respiratory rate 18 /min Calli Thang PA-C Work Phone: [facility] 10-14-2022 13:06-0400 SaO2% (BldA) [Mass fraction] 96 % Calli Thang PA-C Work Phone: [facility] 10-14-2022 13:06-0400 Systolic blood pressure 120 mm[Hg] Calli Thang PA-C Work Phone: [facility] 09-05-2022 18:41-0400 Body temperature 96.49 [degF] Samir Jordan MD Work Phone: [facility] 09-05-2022 18:41-0400 Body weight 96.39 kg Samir Jordan MD Work Phone: [facility] 09-05-2022 18:41-0400 Diastolic blood pressure 76 mm[Hg] Samir Jordan MD Work Phone: [facility] 09-05-2022 18:41-0400 Heart rate 58 /min Samir Jordan MD Work Phone: [facility] 09-05-2022 18:41-0400 Respiratory rate 16 /min Samir Jordan MD Work Phone: [facility] 09-05-2022 18:41-0400 SaO2% (BldA) [Mass fraction] 96 % Samir Jordan MD Work Phone: [facility] 09-05-2022 18:41-0400 Systolic blood pressure 110 mm[Hg] Samir Jordan MD Work Phone: [facility] 09-04-2022 09:44-0400 Body mass index (BMI) [Ratio] 32.8 kg/m2 [facility] 09-04-2022 09:44-0400 Body temperature 98.3 [degF] [facility] 09-04-2022 09:44-0400 Body weight 95.25 kg [facility] 09-04-2022 09:44-0400 Diastolic blood pressure 89 mm[Hg] [facility] 09-04-2022 09:44-0400 Heart rate 57 /min [facility] 09-04-2022 09:44-0400 Respiratory rate 14 /min [facility] 09-04-2022 09:44-0400 SaO2% (BldA) [Mass fraction] 97 % [facility] 09-04-2022 09:44-0400 Systolic blood pressure 140 mm[Hg] [facility] 08-16-2022 09:57-0400 Body height 170.2 cm Ming Albarran MD Work Phone: [facility] 08-16-2022 09:57-0400 Body weight 94.8 kg Ming Albarran MD Work Phone: [facility] 08-16-2022 09:57-0400 Diastolic blood pressure 74 mm[Hg] Ming Albarran MD Work Phone: [facility] 08-16-2022 09:57-0400 Heart rate 51 /min Ming Albarran MD Work Phone: [facility] 08-16-2022 09:57-0400 Respiratory rate 18 /min Ming Albarran MD Work Phone: [facility] 08-16-2022 09:57-0400 SaO2% (BldA) [Mass fraction] 96 % Ming Albarran MD Work Phone: [facility] 08-16-2022 09:57-0400 Systolic blood pressure 123 mm[Hg] Ming Albarran MD Work Phone: [facility] 08-15-2022 15:49-0400 Body weight 95.25 kg Samir Jordan MD Work Phone: [facility] 08-15-2022 15:49-0400 Diastolic blood pressure 66 mm[Hg] Samir Jordan MD Work Phone: [facility] 08-15-2022 15:49-0400 Heart rate 60 /min Samir Jordan MD Work Phone: [facility] 08-15-2022 15:49-0400 Respiratory rate 16 /min Samir Jordan MD Work Phone: [facility] 08-15-2022 15:49-0400 Systolic blood pressure 114 mm[Hg] Samir Jordan MD Work Phone: [facility] 07-29-2022 12:41-0400 Body height 170.2 cm Calli Thang PA-C Work Phone: [facility] 07-29-2022 12:41-0400 Body weight 95.71 kg Calli Thang PA-C Work Phone: [facility] 07-29-2022 12:41-0400 Diastolic blood pressure 74 mm[Hg] Calli Thang PA-C Work Phone: [facility] 07-29-2022 12:41-0400 Heart rate 60 /min Calli Thang PA-C Work Phone: [facility] 07-29-2022 12:41-0400 Respiratory rate 16 /min Calli Thang PA-C Work Phone: [facility] 07-29-2022 12:41-0400 SaO2% (BldA) [Mass fraction] 96 % Calli Thang PA-C Work Phone: [facility] 07-29-2022 12:41-0400 Systolic blood pressure 112 mm[Hg] Calli Thang PA-C Work Phone: [facility] 07-23-2022 13:58-0400 Body temperature 97.7 [degF] Michelle Castaneda MD Work Phone: [facility] 07-23-2022 13:58-0400 Body weight 94.98 kg Michelle Castaneda MD Work Phone: [facility] 07-23-2022 13:58-0400 Diastolic blood pressure 80 mm[Hg] Michelle Castaneda MD Work Phone: [facility] 07-23-2022 13:58-0400 Heart rate 64 /min Michelle Castaneda MD Work Phone: [facility] 07-23-2022 13:58-0400 SaO2% (BldA) [Mass fraction] 96 % Michelle Castaneda MD Work Phone: [facility] 07-23-2022 13:58-0400 Systolic blood pressure 132 mm[Hg] Michelle Castaneda MD Work Phone: [facility] 07-02-2022 15:05-0500 Body height 170.2 cm Michelle Castaneda MD Work Phone: [facility] 07-02-2022 15:05-0500 Body temperature 97.59 [degF] Michelle Castaneda MD Work Phone: [facility] 07-02-2022 15:05-0500 Body weight 94.17 kg Michelle Castaneda MD Work Phone: [facility] 07-02-2022 15:05-0500 Diastolic blood pressure 88 mm[Hg] Michelle Castaneda MD Work Phone: [facility] 07-02-2022 15:05-0500 Heart rate 69 /min Michelle Castaneda MD Work Phone: [facility] 07-02-2022 15:05-0500 SaO2% (BldA) [Mass fraction] 93 % Michelle Castaneda MD Work Phone: [facility] 07-02-2022 15:05-0500 Systolic blood pressure 138 mm[Hg] Michelle Castaneda MD Work Phone: [facility] 06-28-2022 15:07-0500 Body temperature 98.71 [degF] Samir Jordan MD Work Phone: [facility] 06-28-2022 15:07-0500 Body weight 93.89 kg Samir Jordan MD Work Phone: [facility] 06-28-2022 15:07-0500 Diastolic blood pressure 82 mm[Hg] Samir Jordan MD Work Phone: [facility] 06-28-2022 15:07-0500 Heart rate 75 /min Samir Jordan MD Work Phone: [facility] 06-28-2022 15:07-0500 Respiratory rate 16 /min Samir Jordan MD Work Phone: [facility] 06-28-2022 15:07-0500 Systolic blood pressure 129 mm[Hg] Samir Jordan MD Work Phone: [facility] 06-15-2022 22:28-0500 Diastolic blood pressure 76 mm[Hg] INSTRUCTOR OF EDUCATION-C Charles Charles INSTRUCTOR OF EDUCATION Work Phone: [facility] 06-15-2022 22:28-0500 Heart rate 54 /min INSTRUCTOR OF EDUCATION-C Charles Charles INSTRUCTOR OF EDUCATION Work Phone: [facility] 06-15-2022 22:28-0500 Respiratory rate 18 /min INSTRUCTOR OF EDUCATION-C Charles Charles INSTRUCTOR OF EDUCATION Work Phone: [facility] 06-15-2022 22:28-0500 SaO2% (BldA) [Mass fraction] 98 % INSTRUCTOR OF EDUCATION-C Charles Charles INSTRUCTOR OF EDUCATION Work Phone: [facility] 06-15-2022 22:28-0500 Systolic blood pressure 161 mm[Hg] INSTRUCTOR OF EDUCATION-C Charles Charles INSTRUCTOR OF EDUCATION Work Phone: [facility] 06-15-2022 19:48-0500 Body height 170.18 cm INSTRUCTOR OF EDUCATION-C Charles Charles INSTRUCTOR OF EDUCATION Work Phone: [facility] 06-15-2022 19:48-0500 Body mass index (BMI) [Ratio] 32.3 kg/m2 INSTRUCTOR OF EDUCATION-C Charles Charles INSTRUCTOR OF EDUCATION Work Phone: [facility] 06-15-2022 19:48-0500 Body temperature 97.5 [degF] INSTRUCTOR OF EDUCATION-C Charles Charles INSTRUCTOR OF EDUCATION Work Phone: [facility] 06-15-2022 19:48-0500 Body weight 93.46 kg INSTRUCTOR OF EDUCATION-C Charles Charles INSTRUCTOR OF EDUCATION Work Phone: [facility] 05-28-2022 12:52-0500 Heart rate 65 /min Pulm Wstr Work Phone: [facility] 05-28-2022 12:52-0500 Respiratory rate 14 /min Pulm Wstr Work Phone: [facility] 05-28-2022 12:52-0500 SaO2% (BldA) [Mass fraction] 95 % Pulm Wstr Work Phone: [facility] 04-12-2022 16:09-0500 Diastolic blood pressure 67 mm[Hg] INSTRUCTOR OF EDUCATION-C Charles Charles INSTRUCTOR OF EDUCATION Work Phone: [facility] 04-12-2022 16:09-0500 Heart rate 65 /min INSTRUCTOR OF EDUCATION-C Charles Charles INSTRUCTOR OF EDUCATION Work Phone: [facility] 04-12-2022 16:09-0500 Respiratory rate 18 /min INSTRUCTOR OF EDUCATION-Amita Charles INSTRUCTOR OF EDUCATION Work Phone: [facility] 04-12-2022 16:09-0500 SaO2% (BldA) [Mass fraction] 93 % INSTRUCTOR OF EDUCATION-Amita Charles INSTRUCTOR OF EDUCATION Work Phone: [facility] 04-12-2022 16:09-0500 Systolic blood pressure 101 mm[Hg] INSTRUCTOR OF EDUCATION-Amita Charles INSTRUCTOR OF EDUCATION Work Phone: [facility] 04-12-2022 13:06-0500 Body height 172.72 cm INSTRUCTOR OF EDUCATION-Amita Charles INSTRUCTOR OF EDUCATION Work Phone: [facility] Work Phone: 04-12-2022 13:06-0500 Body mass index (BMI) [Ratio] 25.5 kg/m2 INSTRUCTOR OF EDUCATION-C Charles Charles INSTRUCTOR OF EDUCATION Work Phone: [facility] 04-12-2022 13:06-0500 Body temperature 97.8 [degF] INSTRUCTOR OF EDUCATION-C Charles Charles INSTRUCTOR OF EDUCATION Work Phone: [facility] 04-12-2022 13:06-0500 Body weight 76.2 kg INSTRUCTOR OF EDUCATION-C Charles Charles INSTRUCTOR OF EDUCATION Work Phone: [facility] 02-18-2022 16:42-0400 Respiratory rate 16 /min INSTRUCTOR OF EDUCATION-C Charles Charles INSTRUCTOR OF EDUCATION Work Phone: [facility] 02-18-2022 15:28-0400 Diastolic blood pressure 81 mm[Hg] INSTRUCTOR OF EDUCATION-C Charles Charles INSTRUCTOR OF EDUCATION Work Phone: [facility] 02-18-2022 15:28-0400 Heart rate 68 /min INSTRUCTOR OF EDUCATION-C Charles Charles INSTRUCTOR OF EDUCATION Work Phone: [facility] 02-18-2022 15:28-0400 SaO2% (BldA) [Mass fraction] 96 % INSTRUCTOR OF EDUCATION-C Charles Charles INSTRUCTOR OF EDUCATION Work Phone: [facility] 02-18-2022 15:28-0400 Systolic blood pressure 122 mm[Hg] INSTRUCTOR OF EDUCATION-C Charles Charles INSTRUCTOR OF EDUCATION Work Phone: [facility] 02-18-2022 13:49-0400 Body height 172.72 cm INSTRUCTOR OF EDUCATION-Amita Charles INSTRUCTOR OF EDUCATION Work Phone: [facility] Work Phone: 02-18-2022 13:49-0400 Body mass index (BMI) [Ratio] 33.3 kg/m2 INSTRUCTOR OF EDUCATION-Amita Charles INSTRUCTOR OF EDUCATION Work Phone: [facility] 02-18-2022 13:49-0400 Body temperature 97.6 [degF] INSTRUCTOR OF EDUCATION-C Charles Charles INSTRUCTOR OF EDUCATION Work Phone: [facility] 02-18-2022 13:49-0400 Body weight 99.33 kg INSTRUCTOR OF EDUCATION-C Charles Charles INSTRUCTOR OF EDUCATION Work Phone: [facility] 11-13-2021 16:15-0400 Body temperature 98.1 [degF] INSTRUCTOR OF EDUCATION-C Charles Charles INSTRUCTOR OF EDUCATION Work Phone: [facility] Work Phone: 11-13-2021 16:15-0400 Diastolic blood pressure 67 mm[Hg] INSTRUCTOR OF EDUCATION-C Charles Charles INSTRUCTOR OF EDUCATION Work Phone: [facility] Work Phone: 11-13-2021 16:15-0400 Heart rate 81 /min INSTRUCTOR OF EDUCATION-C Charles Charles INSTRUCTOR OF EDUCATION Work Phone: [facility] Work Phone: 11-13-2021 16:15-0400 Respiratory rate 16 /min INSTRUCTOR OF EDUCATION-C Charles Charles INSTRUCTOR OF EDUCATION Work Phone: [facility] Work Phone: 11-13-2021 16:15-0400 SaO2% (BldA) [Mass fraction] 93 % INSTRUCTOR OF EDUCATION-C Charles Charles INSTRUCTOR OF EDUCATION Work Phone: [facility] Work Phone: 11-13-2021 16:15-0400 Systolic blood pressure 112 mm[Hg] INSTRUCTOR OF EDUCATION-C Charles Charles INSTRUCTOR OF EDUCATION Work Phone: [facility] Work Phone: 11-13-2021 08:41-0400 Inhaled oxygen flow rate 2 L/min INSTRUCTOR OF EDUCATION-C Charles Charles INSTRUCTOR OF EDUCATION Work Phone: [facility] Work Phone: 11-11-2021 00:31-0400 Inhaled oxygen concentration 28 % INSTRUCTOR OF EDUCATION-C Charles Charles INSTRUCTOR OF EDUCATION Work Phone: [facility] Work Phone: 11-10-2021 11:54-0400 Body height 172.72 cm INSTRUCTOR OF EDUCATION-C Charles Charles INSTRUCTOR OF EDUCATION Work Phone: [facility] Work Phone: 11-10-2021 11:54-0400 Body weight 90.76 kg INSTRUCTOR OF EDUCATION-C Charles Charles INSTRUCTOR OF EDUCATION Work Phone: [facility] Work Phone: 11-09-2021 17:54-0400 Body mass index (BMI) [Ratio] 30.4 kg/m2 INSTRUCTOR OF EDUCATION-C Charles Charles INSTRUCTOR OF EDUCATION Work Phone: [facility] Work Phone: 11-09-2021 16:18-0400 Body temperature 98.1 [degF] INSTRUCTOR OF EDUCATION-C Charles Charles INSTRUCTOR OF EDUCATION Work Phone: [facility] Work Phone: 11-09-2021 16:18-0400 Diastolic blood pressure 83 mm[Hg] INSTRUCTOR OF EDUCATION-C Charles Charles INSTRUCTOR OF EDUCATION Work Phone: [facility] Work Phone: 11-09-2021 16:18-0400 Heart rate 76 /min INSTRUCTOR OF EDUCATION-C Charles Charles INSTRUCTOR OF EDUCATION Work Phone: [facility] Work Phone: 11-09-2021 16:18-0400 Respiratory rate 16 /min INSTRUCTOR OF EDUCATION-C Charles Charles INSTRUCTOR OF EDUCATION Work Phone: [facility] Work Phone: 11-09-2021 16:18-0400 SaO2% (BldA) [Mass fraction] 100 % INSTRUCTOR OF EDUCATION-Amita Charles INSTRUCTOR OF EDUCATION Work Phone: [facility] Work Phone: 11-09-2021 16:18-0400 Systolic blood pressure 121 mm[Hg] INSTRUCTOR OF EDUCATION-C Charles Charles INSTRUCTOR OF EDUCATION Work Phone: [facility] Work Phone: 11-09-2021 15:17-0400 Body height 172.72 cm INSTRUCTOR OF EDUCATION-C Charles Charles INSTRUCTOR OF EDUCATION Work Phone: [facility] Work Phone: 11-09-2021 15:17-0400 Body mass index (BMI) [Ratio] 31.4 kg/m2 INSTRUCTOR OF EDUCATION-C Charles Charles INSTRUCTOR OF EDUCATION Work Phone: [facility] Work Phone: 11-09-2021 15:17-0400 Body weight 93.89 kg INSTRUCTOR OF EDUCATION-C Charles Charles INSTRUCTOR OF EDUCATION Work Phone: [facility] Work Phone: 09-12-2021 06:50-0400 Body mass index (BMI) [Ratio] 30.7 kg/m2 INSTRUCTOR OF EDUCATION-C Charles Charles INSTRUCTOR OF EDUCATION Work Phone: [facility] Work Phone: 09-12-2021 06:50-0400 Body temperature 98.6 [degF] INSTRUCTOR OF EDUCATION-C Charles Charles INSTRUCTOR OF EDUCATION Work Phone: [facility] Work Phone: 09-12-2021 06:50-0400 Body weight 91.62 kg INSTRUCTOR OF EDUCATION-C Charles Charles INSTRUCTOR OF EDUCATION Work Phone: [facility] Work Phone: 09-12-2021 06:50-0400 Diastolic blood pressure 80 mm[Hg] INSTRUCTOR OF EDUCATION-C Charles Charles INSTRUCTOR OF EDUCATION Work Phone: [facility] Work Phone: 09-12-2021 06:50-0400 Heart rate 74 /min INSTRUCTOR OF EDUCATION-C Charles Charles INSTRUCTOR OF EDUCATION Work Phone: [facility] Work Phone: 09-12-2021 06:50-0400 Respiratory rate 18 /min INSTRUCTOR OF EDUCATION-C Charles Charles INSTRUCTOR OF EDUCATION Work Phone: [facility] Work Phone: 09-12-2021 06:50-0400 SaO2% (BldA) [Mass fraction] 96 % INSTRUCTOR OF EDUCATION-C Charles Charles INSTRUCTOR OF EDUCATION Work Phone: [facility] Work Phone: 09-12-2021 06:50-0400 Systolic blood pressure 142 mm[Hg] INSTRUCTOR OF EDUCATION-C Charles Charles INSTRUCTOR OF EDUCATION Work Phone: [facility] Work Phone: 09-09-2021 18:01-0400 Diastolic blood pressure 94 mm[Hg] [facility] Work Phone: 09-09-2021 18:01-0400 Heart rate 59 /min [facility] Work Phone: 09-09-2021 18:01-0400 Respiratory rate 16 /min [facility] Work Phone: 09-09-2021 18:01-0400 SaO2% (BldA) [Mass fraction] 97 % [facility] Work Phone: 09-09-2021 18:01-0400 Systolic blood pressure 142 mm[Hg] [facility] Work Phone: 09-09-2021 15:31-0400 Body height 172.72 cm [facility] Work Phone: 09-09-2021 15:31-0400 Body mass index (BMI) [Ratio] 29.3 kg/m2 [facility] Work Phone: 09-09-2021 15:31-0400 Body temperature 98.7 [degF] [facility] Work Phone: 09-09-2021 15:31-0400 Body weight 87.54 kg [facility] Work Phone: 05-18-2021 14:35-0500 Body temperature 97.59 [degF] Zuleyma Motta MD Work Phone: [facility] 05-18-2021 14:35-0500 Diastolic blood pressure 67 mm[Hg] Zuleyma Motta MD Work Phone: [facility] 05-18-2021 14:35-0500 Heart rate 73 /min Zuleyma Motta MD Work Phone: [facility] 05-18-2021 14:35-0500 Respiratory rate 18 /min Zuleyma Motta MD Work Phone: [facility] 05-18-2021 14:35-0500 SaO2% (BldA) [Mass fraction] 95 % Zuleyma Motta MD Work Phone: [facility] 05-18-2021 14:35-0500 Systolic blood pressure 171 mm[Hg] Zuleyma Motta MD Work Phone: [facility] 05-18-2021 13:19-0500 Body height 172.7 cm Zuleyma Motta MD Work Phone: [facility] 05-18-2021 13:19-0500 Body mass index (BMI) [Ratio] 31.93 kg/m2 Zuleyma Motta MD Work Phone: [facility] 05-18-2021 13:19-0500 Body weight 95.25 kg Zuleyma Motta MD Work Phone: [facility] 05-05-2020 15:00-0500 BP Diastolic 75 mm[Hg] Generic [facility] 05-05-2020 15:00-0500 BP Systolic 114 mm[Hg] Generic [facility] 05-05-2020 15:00-0500 Pulse (Heart Rate) 65 /min Generic [facility] 05-05-2020 15:00-0500 Pulse Oximetry 94 % Generic [facility] 05-05-2020 15:00-0500 Respiratory Rate 16 /min Generic [facility] 05-05-2020 07:34-0500 Body Temperature 98.01 [degF] Generic [facility] 05-05-2020 04:05-0500 BMI (Body Mass Index) 27.59 kg/m2 Generic [facility] 05-05-2020 04:05-0500 Body weight 82.3 kg Generic [facility] 05-03-2020 22:32-0500 Height 172.7 cm [facility] 10-28-2017 06:45-0400 BP Diastolic 104 mm[Hg] Raciel Herring [facility] 10-28-2017 06:45-0400 BP Systolic 142 mm[Hg] Raciel Herring [facility] 10-28-2017 06:45-0400 Pulse (Heart Rate) 61 /min Raciel Carringtonriel [facility] 10-28-2017 06:45-0400 Pulse Oximetry 97 % Raciel Carringtonriel [facility] 10-28-2017 01:30-0400 Body Temperature 98.1 [degF] Raciel Herring [facility] 10-28-2017 01:30-0400 Respiratory Rate 16 /min Raciel Carringtonriel [facility] 04-27-2017 14:27-0500 Pulse Oximetry 93 % [employer] [facility] Work Phone: 04-27-2017 14:25-0500 BP Diastolic 71 mm[Hg] Delores Dials [facility] Work Phone: 04-27-2017 14:25-0500 BP Systolic 107 mm[Hg] Delores Dials [facility] Work Phone: 04-27-2017 13:21-0500 Pulse (Heart Rate) 59 /min Delores Dials [facility] Work Phone: 04-27-2017 13:21-0500 Respiratory Rate 16 /min Delores Dials [facility] Work Phone: 04-27-2017 11:35-0500 Body Temperature 97.5 [degF] Delores Dials [facility] Work Phone: Encounters Encounter Date Encounter Type Care Provider Facility Start: 12-30-2024 End: 12-30-2024 Orders Only Alissa Rachel DO Work Phone: Vascular Surgery Comment on above: Varicose veins of ri ght lower extremity with pain (Primary Dx) Start: 12-14-2024 End: 12-23-2024 Refill Samir Jordan MD Work Phone: [facility] Comment on above: Refill Request Appointment Start: 11-29-2024 End: 11-29-2024 Telephone encounter Iggy Saida MCCLELLANDASSISTANT TODDLER TEACHER Work Phone: [facility] Start: 11-23-2024 End: 11-23-2024 Patient encounter procedure Alissa Rachel DO Work Phone: Vascular Surgery Comment on above: Symptomatic varicose veins, bilateral (Primary Dx); Symptomatic varicose veins of both lower extremities Start: 11-23-2024 End: 11-23-2024 ambulatory ALISSA RACHEL Facility:[facility] Start: 11-15-2024 End: 11-15-2024 ambulatory ALISSA RACHEL Facility:[facility] Start: 11-12-2024 End: 11-18-2024 Telephone encounter Samir Jordan MD Work Phone: [facility] [place] Comment on above: Patient Question Start: 11-11-2024 End: 11-25-2024 Telephone encounter Samir Jordan MD Work Phone: [facility] [place] Comment on above: Letter Request Activity Restriction s Start: 10-20-2024 End: 10-26-2024 Telephone encounter Leah Shaikh APRN.ASSISTANT TODDLER TEACHER Work Phone: [facility] [place] Comment on above: Letter Request Start: 10-19-2024 End: 10-19-2024 Patient encounter procedure Alissa Rachel DO Work Phone: Vascular Surgery Comment on above: Symptomatic varicose veins of both lower extremities (Primary Dx); Iliac artery aneurysm, left; 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 Start: 10-19-2024 End: 10-19-2024 ambulatory LEAH SHAIKH Facility:[facility] Start: 10-12-2024 End: 10-12-2024 Refill Samir Jordan MD Work Phone: [facility] [place] Comment on above: Refill Request Start: 10-01-2024 End: 10-01-2024 Office outpatient visit 25 minutes Leah Shaikh APRN.ASSISTANT TODDLER TEACHER Work Phone: [facility] [place] Comment on above: Primary hypertension (Primary Dx); Iliac artery aneurysm, left; Chronic obstructive pulmonary disease, unspecified COPD type (HCC) Start: 10-01-2024 End: 10-01-2024 ambulatory SAMIR JORDAN Facility:[facility] Start: 09-30-2024 ambulatory Marcus Sierra Facility :[facility] Start: 09-15-2024 End: 09-15-2024 ambulatory MICHELLE TILLEYAN Facility:[facility] Start: 09-14-2024 End: 11-14-2024 Follow-up encounter Ольга Hughes APRN.ASSISTANT TODDLER TEACHER Work Phone: Neurology Start: 09-07-2024 End: 09-07-2024 Refill Samir Jordan MD Work Phone: [facility] [place] Comment on above: Refill Request Start: 09-06-2024 End: 09-07-2024 ambulatory SAMIR JORDAN Facility:[facility] Start: 09-03-2024 End: 09-09-2024 [facility] Work Phone: Neurology Start: 09-03-2024 End: 09-03-2024 Office outpatient visit 25 minutes Leah Shaikh APRN.ASSISTANT TODDLER TEACHER Work Phone: [facility] [place] Comment on above: Upper abdominal pain (Primary Dx); Chronic obstructive pulmonary disease, unspecified COPD type (HCC); Iliac artery aneurysm, left; Primary hypertension Start: 09-03-2024 End: 09-03-2024 ambulatory SAMIR JORDAN Facility:[facility] Start: 08-31-2024 End: 08-31-2024 Follow-up encounter Leah Shaikh APRN.ASSISTANT TODDLER TEACHER Work Phone: [facility] [place] Start: 08-30-2024 End: 08-30-2024 Telephone encounter Samir Jordan MD Work Phone: [facility] [place] Comment on above: Results Start: 08-30-2024 End: 08-30-2024 Subsequent hospital visit by physician [facility] Work Phone: Radiology Comment on above: Upper abdominal pain [R10.10] Start: 08-30-2024 End: 08-30-2024 ambulatory SAMIR JORDAN Facility:[facility] Start: 08-30-2024 End: 08-30-2024 Office outpatient visit 25 minutes Leah Shaikh APRN.ASSISTANT TODDLER TEACHER Work Phone: [facility] [place] Comment on above: Upper abdominal pain (Primary Dx); 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, unspecified vessel or lesion type; Primary hypertension; Acute cough; Hyperlipidemia, unspecified hyperlipidemia type; Constipation, unspecified constipation type Start: 08-30-2024 End: 08-30-2024 ambulatory LEAH SHAIKH Facility:[facility] Start: 08-26-2024 End: 08-27-2024 Refill Iggy Darden APRN.ASSISTANT TODDLER TEACHER Work Phone: Pulmonary Medicine Comment on above: Refill Request Start: 08-19-2024 End: 08-24-2024 Patient encounter procedure Ольга Hughes 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 Work Phone: Neurology Comment on above: MARGARITO (obstructive sle ep apnea) Start: 08-19-2024 End: 08-19-2024 ambulatory SAMIR JORDAN Facility:[facility] Start: 08-19-2024 End: 08-19-2024 ambulatory SAMIR JORDAN Facility:[facility] Start: 08-11-2024 End: 08-11-2024 Patient encounter procedure Victoria Jurado APRN.ASSISTANT TODDLER TEACHER Work Phone: General Surgery Comment on above: Ventral hernia with gangrene (Primary Dx) Start: 08-11-2024 End: 08-11-2024 ambulatory VICTORIA ADRIEN Facility:[facility] Start: 07-30-2024 End: 07-31-2024 Telephone encounter Samir Jordan MD Work Phone: [facility] [place] Comment on above: Patient Question Start: 07-27-2024 End: 07-27-2024 ambulatory UNKNOWN PROVIDER Facility:[facility] Start: 07-21-2024 End: 09-20-2024 Follow-up encounter Samir Jordan MD Work Phone: [facility] [place] Start: 07-20-2024 End: 07-20-2024 Telephone encounter Michelle Castaneda MD Work Phone: General Surgery Comment on above: [facility] Start: 07-20-2024 End: 07-20-2024 [facility] Work [facility]: [facility] Start: 07-20-2024 End: 07-20-[address] 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 1 Work Phone: [facility] Start: 07-20-2024 End: 07-20-2024 [facility] Work Phone: [facility] Comment on above: Spirometry Start: 07-20-2024 End: 07-20-2024 Patient encounter procedure Pulm [facility] Work Phone: [facility] Comment on above: Stage 3 severe COPD by GOLD classification (HCC) (Primary Dx); MARGARITO (obstructive sleep apnea); Former cigarette smoker; Post-nasal drip Start: 07-19-2024 End: 07-19-2024 Orders Only Homero Escamilla MD Work Phone: Pulmonary Medicine Comment on above: Chronic obstructive pulmonary disease, unspecified COPD type (HCC) (Primary Dx) Start: 07-15-2024 End: 07-15-2024 ambulatory SAMIR JORDAN Facility:[facility] Start: 07-15-2024 End: 07-15-2024 Patient encounter procedure Michelle Castaneda MD Work Phone: General Surgery Comment on above: Ventral hernia with gangrene (Primary Dx) Start: 07-13-2024 End: 07-13-2024 Refill Samir Jordan MD Work Phone: [facility] [place] Comment on above: Refill Request Start: 07-08-2024 End: 07-19-2024 Telephone encounter Samir Jordan MD Work Phone: Internal Medicine [place] Comment on above: Equipment for patien t Start: 05-31-2024 End: 05-31-2024 Emergency department patient visit Samir Jordan Facility:[facility] Start: 05-31-2024 End: 05-31-2024 ambulatory SAMIR JORDAN Facility:[facility] Start: 05-31-2024 End: 05-31-2024 Patient encounter procedure Samir Jordan MD Work Phone: Internal Medicine [place] Comment on above: Hypotension, unspeci fied hypotension type (Primary Dx); Generalized abdominal pain; Dyspnea, unspecified type Start: 04-30-2024 End: 04-30-2024 Orders Only Isabella Malin Work Phone: Pulmonary Medicine Comment on above: History of cigarette smoking (Primary Dx); Lung nodules Start: 04-26-2024 End: 04-26-2024 Telephone encounter Lenny Quiñones MD Work Phone: [facility] Comment on above: Results (COVID+) Start: 04-25-2024 End: 04-25-2024 ambulatory SAMIR JORDAN Facility:[facility] Start: 04-25-2024 End: 04-25-2024 Patient encounter procedure Shantelle Qureshi APRN.CNP Work Phone: [facility] Comment on above: URI with cough and c ongestion (Primary Dx) Start: 04-15-2024 End: 04-15-2024 Telephone encounter Samir Jordan MD Work Phone: Internal Medicine [place] Comment on above: Results Kidney insufficiency (Primary Dx) Start: 04-14-2024 End: 04-14-2024 Subsequent hospital visit by physician [facility] Work Phone: Radiology Comment on above: Chronic obstructive pulmonary disease with acute exacerbation (HCC) [J44.1] Start: 04-14-2024 End: 04-14-2024 ambulatory SAMIR JORDAN Facility:[facility] Start: 04-14-2024 End: 04-14-2024 Patient encounter procedure Samir Jordan MD Work Phone: Internal [facility] [place] Comment on above: Bilateral leg cramps (Primary Dx); Encounter for immunization; Need for influenza vaccination; Chronic obstructive pulmonary disease with acute exacerbation (HCC) Start: 04-09-2024 End: 04-09-2024 Refill Samir Jordan MD Work Phone: Internal Medicine [place] Comment on above: Refill Request Start: 12-17-2023 End: 12-17-2023 Refill Samir Jordan MD Work Phone: [facility] [place] Comment on above: Refill Request (Sarir felicia called) Start: 11-26-2023 End: 11-26-2023 Patient encounter procedure Samir Jordan MD Work Phone: [facility] [place] Comment on above: Gastroesophageal ref lux disease without esophagitis (Primary Dx); Constipation, unspecified constipation type; Screening for depression; Encounter for screening examination for other mental health and behavioral disorders; History of tobacco use Start: 11-11-2023 Telephone encounter Samir dahl MD Work Phone: [facility] [place] Comment on above: Future Appointment Start: 11-11-2023 End: 11-11-2023 Patient encounter procedure Leah Shaikh APRN.CNP Work Phone: [facility] [place] Comment on above: Generalized abdomina l pain (Primary Dx); Constipation, unspecified constipation type; Gastroesophageal reflux disease without esophagitis Start: 10-24-2023 Refill Samir gudino MD Work Phone: [facility] [place] Comment on above: Refill Request Start: 10-21-2023 Telephone encounter Samir dahl MD Work Phone: Internal [facility] [place] Comment on above: Medication Problem Refill Request Start: 10-20-2023 End: 10-20-2023 Emergency department patient visit Count Includes [facility] Facility:[facility] Start: 10-20-2023 Telephone encounter Samir dahl MD Work Phone: Family Medicine [place] Comment on above: Patient Update Start: 10-15-2023 Refill Calli Silver PA-C Work Phone: Pulmonary Medicine Comment on above: Refill Request Start: 10-14-2023 Telephone encounter Samir dahl MD Work Phone: Internal Medicine [place] Comment on above: Patient Question Start: 10-13-2023 End: 10-13-2023 Subsequent hospital visit by physician [facility] Work Phone: Radiology Comment on above: Chronic obstructive pulmonary disease with acute exacerbation (HCC) [J44.1] Start: 10-13-2023 End: 10-13-2023 Patient encounter procedure Samir Jordan MD Work Phone: Internal Medicine [place] Comment on above: Chronic obstructive pulmonary disease with acute exacerbation (HCC) (Primary Dx); History of hemoptysis; Thrush (oral) Start: 10-11-2023 ambulatory Perla Ching RN NURSE INTEGRATION PROJECT MANAGER Comment on above: Information (Medicat ion adjustment ) Information Start: 10-11-2023 Telephone encounter Varinder acosta APRN.ASSISTANT TODDLER TEACHER Work Phone: [facility] Comment on above: Medication Problem Start: 10-11-2023 End: 10-11-2023 Patient encounter procedure Varinder Rey APRN.ASSISTANT TODDLER TEACHER Work Phone: [facility] Comment on above: Sinobronchitis (Prim jeanie Dx); History of COPD Start: 10-01-2023 Refill Iggy kelley APRN.ASSISTANT TODDLER TEACHER Work Phone: Pulmonary Medicine Comment on above: Refill Request Start: 08-22-2023 End: 08-22-2023 Patient encounter procedure Leah Shaikh APRN.ASSISTANT TODDLER TEACHER Work Phone: Internal Medicine [place] Comment on above: Primary hypertension (Primary Dx); Bilateral edema of lower extremity; Abnormal finding on liver function; Hyperlipidemia, unspecified hyperlipidemia type; Abrasion of foot or toe, left, initial encounter Start: 08-04-2023 ambulatory Samir gudino MD Work Phone: Ambulatory Surgery Comment on above: colorectal cancer sc reening Start: 07-30-2023 End: 07-30-2023 Patient encounter procedure Calli Desir PA-C Work Phone: Pulmonary Medicine Comment on above: Stage 3 severe COPD by GOLD classification (HCC) (Primary Dx); Former cigarette smoker; Lung nodules Start: 07-26-2023 End: 07-27-2023 Emergency department patient visit [facility] Work Phone: Start: 07-18-2023 Telephone encounter Samir dahl MD Work Phone: Internal Medicine [place] Comment on above: Patient Update Start: 07-17-2023 Telephone encounter Sophia Carrera [facility] Comment on above: housing assistance Start: 07-17-2023 End: 07-17-2023 Patient encounter procedure Samir Jordan MD Work Phone: Internal Medicine [place] Comment on above: Chronic deep vein th rombosis (DVT) of calf muscle vein of right lower extremity (HCC) (Primary Dx); Bilateral edema of lower extremity; Primary hypertension; Homelessness Start: 07-10-2023 Telephone encounter Brian pittman MD Work Phone: General Surgery Comment on above: Appointment; Patient Question Start: 06-26-2023 End: 06-26-2023 Patient encounter procedure Samir Jordan MD Work Phone: Internal Medicine [place] Comment on above: Pain in toes of both feet (Primary Dx); Chronic deep vein thrombosis (DVT) of calf muscle vein of right lower extremity (HCC); Chronic obstructive pulmonary disease, unspecified COPD type (HCC); 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, unspecified vessel or lesion type; Primary hypertension Start: 06-15-2023 End: 06-15-2023 [facility] Start: 06-04-2023 End: 06-04-2023 Patient encounter procedure Samir Jordan MD Work Phone: Internal Medicine [place] Comment on above: Podagra (Primary Dx) ; Chronic deep vein thrombosis (DVT) of calf muscle vein of right lower extremity (HCC); Primary hypertension Start: 04-23-2023 End: 04-23-2023 Subsequent hospital visit by physician [facility] Work Phone: Radiology Comment on above: Viral URI with cough [J06.9] Start: 03-27-2023 End: 03-27-2023 Refill Samir Jordan MD Work Phone: Internal Medicine [place] Comment on above: Refill Request Chronic deep vein th rombosis (DVT) of calf muscle vein of right lower extremity (HCC) (Primary Dx); Gastroesophageal reflux disease without esophagitis; Homelessness; Primary hypertension; Need for COVID-19 vaccine; Delusions ([facility]) Start: 02-09-2023 End: 02-09-2023 Emergency department patient visit Dr. [facility] Start: 01-29-2023 Telephone encounter Leah Marcus APRN.CNP Work Phone: Internal Medicine [place] Comment on above: Results Start: 01-28-2023 End: 01-28-2023 Patient encounter procedure Homero Escamilla MD Work Phone: Pulmonary Medicine Comment on above: Stage 3 severe COPD by GOLD classification ([facility]) (Primary Dx); Former cigarette smoker; Lung nodules Start: 01-27-2023 Telephone encounter Obdulio Wharton [facility] Surgery Comment on above: Colonoscopy cancella tion Start: 01-24-2023 End: 01-24-2023 Subsequent hospital visit by physician [facility] Work Phone: Radiology Comment on above: Abdominal distension [R14.0] Start: 01-16-2023 Telephone encounter Leah Marcus APRN.ASSISTANT TODDLER TEACHER Work Phone: Internal Medicine [place] Start: 01-15-2023 End: 01-15-2023 Subsequent hospital visit by physician [facility] [place] [facility] Work Phone: Radiology Comment on above: SOB (shortness of br eath) [R06.02] Start: 01-15-2023 End: 01-15-2023 Patient encounter procedure Leah Older 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 Work Phone: Internal Medicine [place] Comment on above: Bilateral edema of l ower extremity (Primary Dx); SOB (shortness of breath); Abdominal distension; Weight gain; Fatigue, unspecified type; Delusions (HCC); Need for influenza vaccination Start: 01-01-2023 Telephone encounter Calli snyder [facility] Work Phone: Psychology Comment on above: consult Start: 12-27-2022 Telephone encounter Calli snyder [facility] Work Phone: Psychology Comment on above: bh consult Start: 12-26-2022 End: 12-26-2022 Patient encounter procedure Samir Jordan MD Work Phone: Internal Medicine [place] Comment on above: Chronic deep vein th rombosis (DVT) of calf muscle vein of right lower extremity (HCC) (Primary Dx); Obesity, Class I, BMI 30-34.9; 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, unspecified vessel or lesion type; Chronic obstructive pulmonary disease, unspecified COPD type (HCC); Hyperlipidemia, unspecified hyperlipidemia type; Primary hypertension; Homelessness; Delusions (HCC) Start: 12-24-2022 Non-patient / Non-visit Dr. Chanell Jordan Work Phone: [facility] Work Phone: Start: 12-24-2022 Refill Samir gudino MD Work Phone: Internal Medicine [place] Comment on above: Refill Request Start: 12-23-2022 Non-patient / Non-visit Dr. Chanell Jordan Work Phone: [facility] Work Phone: Start: 12-23-2022 Non-patient / Non-visit Dr. Chanell Jordan Work Phone: [facility] Start: 12-23-2022 Non-patient / Non-visit Dr. Chanell Jordan Work Phone: [facility] Start: 12-22-2022 End: 12-24-2022 Evaluation and management of inpatient Dr. Samir Jordan Work Phone: [facility] Work Phone: Start: 12-22-2022 Non-patient / Non-visit Dr. Chanell Jordan Work Phone: [facility] Work Phone: Start: 12-21-2022 Evaluation and manag ement of inpatient [facility] Work Phone: Start: 12-21-2022 Non-patient / Non-visit Dr. Chanell Jordan Work Phone: [facility] Work Phone: Start: 11-30-2022 End: 11-30-2022 Emergency department patient visit [facility] Work Phone: Start: 11-18-2022 End: 11-18-2022 Patient encounter status Injection Wstr Work Phone: [facility] Start: 11-18-2022 End: 11-18-2022 Subsequent hospital visit by physician [facility] Work Phone: Nuclear Medicine Comment on above: Encounter for other preprocedural examination [Z01.818] Start: 11-12-2022 Telephone encounter Nurse Card Admin [facility] Work Phone: Cardiology Comment on above: Procedure Start: 11-11-2022 Refill Iggy kelley APRN.ASSISTANT TODDLER TEACHER Work Phone: Pulmonary Medicine Comment on above: Refill Request Start: 11-08-2022 Telephone encounter Samir dahl MD Work Phone: Internal Medicine [place] Comment on above: Results Start: 11-06-2022 End: 11-06-2022 Subsequent hospital visit by physician Ct [facility] (I-Stat) Work Phone: Cat Scan Comment on above: Former cigarette smo ker [Z87.891] Start: 10-24-2022 Refill Samir gudino MD Work Phone: Internal Medicine [place] Comment on above: Refill Request Start: 10-22-2022 End: 10-22-2022 Patient encounter procedure Eliana Cortes APRN.ASSISTANT TODDLER TEACHER Work Phone: Pulmonary Medicine Comment on above: Encounter for screen ing for lung cancer (Primary Dx); Former cigarette smoker Start: 10-14-2022 End: 10-14-2022 Patient encounter procedure Calli Desir PA-C Work Phone: Pulmonary Medicine Comment on above: Stage 3 severe COPD by GOLD classification (HCC) (Primary Dx); Gastroesophageal reflux disease without esophagitis; Former cigarette smoker; Dysphagia, unspecified type Start: 10-01-2022 Telephone encounter Leah Marcus APRN.ASSISTANT TODDLER TEACHER Work Phone: Internal Medicine [place] Comment on above: Results Start: 09-24-2022 End: 09-24-2022 Subsequent hospital visit by physician Us [facility] Work Phone: Radiology Comment on above: Subcutaneous nodule of back [R22.2] Start: 09-17-2022 End: 09-17-2022 Subsequent hospital visit by physician Xr [facility] [place] Work Phone: Radiology Comment on above: Chronic bilateral lo w back pain with bilateral sciatica [M54.42, M54.41, G89.29] Start: 09-07-2022 Telephone encounter Samir dahl MD Work Phone: Internal Medicine [place] Comment on above: Results Start: 09-05-2022 End: 09-05-2022 Subsequent hospital visit by physician Xr [facility] Work Phone: Radiology Comment on above: Acute pain of right shoulder [M25.511] Start: 09-05-2022 End: 09-05-2022 Patient encounter procedure Samir Jordan MD Work Phone: Internal Medicine [place] Comment on above: Acute pain of right shoulder (Primary Dx) Start: 09-04-2022 End: 09-04-2022 Emergency department patient visit [facility] Work Phone: Start: 08-21-2022 ambulatory Win Newman 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 Work Phone: Pulmonary Medicine Start: 08-16-2022 Telephone encounter Ming Perez MD Work Phone: [facility] Cardiology [place] Comment on above: Radiology Pre Proced ure Instructions Start: 08-16-2022 End: 08-16-2022 ambulatory [facility] Facility:[facility] Start: 08-16-2022 Encounter for other preprocedural examination [facility] Start: 08-16-2022 End: 08-16-2022 Patient encounter procedure Ming Albarran MD Work Phone: [facility] Cardiology [place] Comment on above: Coronary artery dise ase 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 pectoris, unspecified vessel or lesion type (Primary Dx); Encounter for other preprocedural examination; Preoperative cardiovascular examination; Essential hypertension; Mixed hyperlipidemia Start: 08-16-2022 End: 08-16-2022 Patient encounter status Ming Albarran MD Work Phone: [facility] [place] Start: 08-15-2022 End: 08-15-2022 Patient encounter procedure Samir Jordan MD Work Phone: Internal Medicine [place] Comment on above: Chronic obstructive pulmonary disease, unspecified COPD type (HCC) (Primary Dx); Special screening for malignant neoplasms, colon; 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, unspecified vessel or lesion type; Uncomplicated asthma, unspecified asthma severity, unspecified whether persistent; Primary hypertension Start: 07-29-2022 End: 07-29-2022 Patient encounter procedure Calli Desir PA-C Work Phone: Pulmonary Medicine Comment on above: Chronic bronchitis, unspecified chronic bronchitis type (HCC) (Primary Dx); Chronic rhinitis; Gastroesophageal reflux disease without esophagitis Start: 07-23-2022 End: 07-23-2022 Patient encounter procedure Michelle Castaneda MD Work Phone: General Surgery Comment on above: Ventral hernia with gangrene (Primary Dx); MARGARITO on CPAP; Coronary artery disease, unspecified vessel or lesion type, unspecified whether angina present, unspecified whether pechanga or transplanted heart Start: 07-15-2022 End: 07-15-2022 Subsequent hospital visit by physician [facility] ([facility]) Work Phone: Cat Scan Comment on above: Umbilical hernia wit hout obstruction and without gangrene [K42.9] Start: 07-02-2022 End: 07-02-2022 Patient encounter procedure Michelle Castaneda MD Work Phone: General Surgery Comment on above: Ventral hernia with gangrene (Primary Dx); Umbilical hernia without obstruction and without gangrene; MARGARITO on CPAP; Chronic obstructive pulmonary disease, unspecified COPD type (HCC); Coronary artery disease, unspecified vessel or lesion type, unspecified whether angina present, unspecified whether pechanga or transplanted heart Start: 06-28-2022 End: 06-28-2022 Patient encounter procedure Samir Jordan MD Work Phone: Internal Medicine [place] Comment on above: Umbilical hernia wit hout obstruction and without gangrene (Primary Dx); Need for vaccination; Chronic obstructive pulmonary disease, unspecified COPD type (HCC) Start: 06-25-2022 Refill Samir gudino MD Work Phone: Internal Medicine [place] Comment on above: Refill Request Start: 06-24-2022 End: 06-24-2022 ambulatory [facility] Work Phone: Start: 06-24-2022 End: 06-24-2022 Patient encounter procedure [facility] Start: 06-15-2022 End: 06-15-2022 Emergency department patient visit INSTRUCTOR OF EDUCATION-Amita Charles INSTRUCTOR OF EDUCATION Work Phone: [facility] Start: 05-28-2022 End: 05-28-2022 ambulatory Pulm Lab [facility] Work Phone: PULM LAB [facility] Comment on above: Spirometry Start: 05-28-2022 End: 05-28-2022 Patient encounter procedure Pulm Lab [facility] Work Phone: [facility] Start: 04-12-2022 End: 04-12-2022 Emergency department patient visit INSTRUCTOR OF EDUCATION-Amita Charles INSTRUCTOR OF EDUCATION Work Phone: [facility] Start: 02-18-2022 End: 02-18-2022 Emergency department patient visit INSTRUCTOR OF EDUCATION-Amita Charles INSTRUCTOR OF EDUCATION Work Phone: [facility] Start: 02-18-2022 End: 02-18-2022 Non-patient / Non-visit INSTRUCTOR OF EDUCATION-Amita Charles INSTRUCTOR OF EDUCATION Work Phone: [facility] Start: 01-08-2022 End: 01-08-2022 ambulatory CHARLES CHARLES [facility] Start: 11-13-2021 Non-patient / Non-visit INSTRUCTOR OF EDUCATION-C Braxton Charles INSTRUCTOR OF EDUCATION Work Phone: [facility] Start: 11-12-2021 Non-patient / Non-visit INSTRUCTOR OF EDUCATION-C Braxton Charles INSTRUCTOR OF EDUCATION Work Phone: [facility] Start: 11-11-2021 Non-patient / Non-visit INSTRUCTOR OF EDUCATION-C Braxton Charles INSTRUCTOR OF EDUCATION Work Phone: [facility] Start: 11-10-2021 Non-patient / Non-visit INSTRUCTOR OF EDUCATION-C Braxton Charles INSTRUCTOR OF EDUCATION Work Phone: [facility] Start: 11-09-2021 Non-patient / Non-visit INSTRUCTOR OF EDUCATION-C Braxton Charles INSTRUCTOR OF EDUCATION Work Phone: [facility] Start: 11-09-2021 End: 11-13-2021 Evaluation and management of inpatient INSTRUCTOR OF EDUCATION-Amita Charles INSTRUCTOR OF EDUCATION Work Phone: [facility] 3 Start: 11-08-2021 End: 11-08-2021 ambulatory CHARLES FERRIS [facility] Start: 10-23-2021 End: 10-23-2021 ambulatory [facility] Start: 10-23-2021 End: 10-23-2021 Encounter for other preprocedural examination [facility] Start: 09-12-2021 End: 09-12-2021 Patient encounter procedure INSTRUCTOR OF EDUCATION-Amita Charles INSTRUCTOR OF EDUCATION Work Phone: [facility] Start: 09-09-2021 End: 09-09-2021 Emergency department patient visit [facility] Start: 09-03-2021 End: 09-03-2021 ambulatory CHARLES FERRIS [facility] Start: 09-03-2021 End: 09-03-2021 ambulatory CHARLES FERRIS [facility] Start: 08-30-2021 End: 08-30-2021 ambulatory LUKE HOKO [facility] Start: 07-17-2021 End: 07-17-2021 ambulatory CHARLES FERRIS [facility] Start: 07-05-2021 End: 07-05-2021 ambulatory CHARLES FERRIS [facility] Start: 06-21-2021 End: 06-21-2021 ambulatory YENNY RODRIGUEZ MD Facility:[facility] Start: 06-10-2021 End: 06-11-2021 ambulatory TUCKER A WOOD DO Facility:[facility] Start: 05-18-2021 End: 05-18-2021 Emergency department patient visit Zuleyma Motta MD Work Phone: [facility] Emergency Dept Comment on above: Bilateral lower extr emity edema (Primary Dx) Start: 03-25-2021 End: 03-25-2021 ambulatory TITO TUCKER MD Facility:[facility] Start: 03-22-2021 End: 03-22-2021 ambulatory TUCKER A WOOD DO Facility:[facility] Start: 03-09-2021 End: 03-09-2021 [facility] Start: 07-05-2020 End: 07-05-2020 Orders Only Rosa Elena Natarajanwarren Montoya Work Phone: [facility] Start: 05-04-2020 End: 05-05-2020 Evaluation and management of inpatient [facility] Start: 05-03-2020 End: 05-05-2020 Evaluation and management of inpatient Generic [facility] Hospital[facility] Work Phone: [facility] Cardiovascular Step Down Comment on above: Coronary artery dise ase involving pechanga coronary artery of pechanga heart, angina presence unspecified (Primary Dx); NSTEMI (non-ST elevated myocardial infarction) ([facility]); Chronic obstructive pulmonary disease, unspecified COPD type (HCC); Tobacco abuse, in remission Start: 03-06-2018 End: 03-10-2018 Patient encounter procedure SHAWNA [facility] Start: 01-29-2018 End: 01-30-2018 Emergency department patient visit [facility] Start: 10-28-2017 End: 10-28-2017 Emergency department patient visit Raciel Herring Work Phone: [facility] Start: 04-27-2017 End: 04-27-2017 Emergency department patient visit Delores Thomas Work Phone: [facility] Start: 01-14-2017 End: 01-14-2017 Ambulatory Shawna Rodriguez Work Phone: [facility] Building Imaging Procedures Date Procedure Procedure Detail Performing Clinician Start: 08-30-2024 Radiologic exam ches t 2 views Leah Shaikh 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 Work Phone: Start: 08-30-2024 Lipid 1996 panel - S raz or Plasma Leah Shaikh 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 Work Phone: Start: 07-20-2024 Brncdilat rspse spmt ry pre&post-brncdilat admn Homero Escamilla MD Work Phone: Start: 04-14-2024 Radiologic exam ches t 2 views Samir Jordan MD Work Phone: Start: 04-14-2024 PFIZER-BIONTECH COVI D-19 VACCINE AGE 12+ YR (COMIRNATY) Samir Jordan MD Work Phone: Start: 11-26-2023 Adult depression scr eening assessment Samir Jordan MD Work Phone: Start: 10-13-2023 Radiologic exam ches t 2 views Samir Jordan MD Work Phone: Start: 07-23-2023 Lipid 1996 panel - S raz or Plasma Calli Desir PA-C Work Phone: Start: 06-15-2023 SARS-CoV-2, Influenz a & RSV (PCR) Start: 06-15-2023 Plain chest X-ray Start: 04-23-2023 Radiologic exam ches t 2 views Leah Shaikh 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 Work Phone: Start: 03-27-2023 PFIZER-BIONTECH COVI D-19 VACCINE (2022- SEASON) AGE 12+ YR Samir Jordan MD Work Phone: Start: 01-24-2023 Us abdominal real ti me w/image documentation Leah Older 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 Work Phone: Start: 01-15-2023 Radiologic exam ches t 2 views Leah Older 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 Work Phone: Start: 01-15-2023 INFLUENZA VACCINE, A GE 6 MO - 64 YR, QUADRIVALENT (AFLURIA, FLULAVAL, FLUZONE) Leah Older 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 Work Phone: Start: 12-22-2022 CT angiography of ch est with contrast Start: 12-21-2022 Plain chest X-ray Start: 11-30-2022 CT angiography of ch est with contrast Start: 11-30-2022 Plain chest X-ray Start: 11-18-2022 Myocardial spect mul tiple studies Ming Albarran MD Work Phone: Start: 11-06-2022 CT LUNG SCREEN WO ARVIN Hartmanalyssa Cortes 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 Work Phone: Start: 09-24-2022 Us pelvic nonobstetr ic image dcmtn limited/f/u Leah Older 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 Work Phone: Start: 09-17-2022 Radex spine lumbosac ral 2/3 views Leah Deandre Shaikh 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 Work Phone: Start: 09-05-2022 Radex shoulder compl ete minimum 2 views Samir Jordan MD Work Phone: Start: 07-15-2022 Ct abdomen & pelvis w/contrast material Michelle Castaneda MD Work Phone: Start: 06-24-2022 X-ray of lumbar spin e, two or three views Start: 05-28-2022 Nitric oxide gas determination Hoemro Escamilla MD Work Phone: Start: 05-28-2022 Brncdilat rspse spmt ry pre&post-brncdilat admn Homero Escamilla MD Work Phone: Start: 05-18-2022 Lipid 1996 panel - S raz or Plasma Leah Older 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 Work Phone: Start: 04-12-2022 Plain chest X-ray INSTRUCTOR OF EDUCATION-C Charles Charles INSTRUCTOR OF EDUCATION Work Phone: Start: 02-18-2022 Plain chest X-ray INSTRUCTOR OF EDUCATION-C Charles Charles INSTRUCTOR OF EDUCATION Work Phone: Start: 11-11-2021 Plain X-ray abdomen INSTRUCTOR OF EDUCATION- C Charles Charles INSTRUCTOR OF EDUCATION Work Phone: Start: 11-09-2021 MRI of lumbar spine INSTRUCTOR OF EDUCATION- C Charles Charles INSTRUCTOR OF EDUCATION Work Phone: Start: 09-09-2021 CT of abdomen and pe lvis without contrast Start: 09-09-2021 SARS-CoV-2 & FLU Ant igen (Rapid) Start: 05-18-2021 Radiologic exam ches t single view Zuleyma Motta MD Work Phone: Start: 05-18-2021 CBC W Auto Different ial panel - Blood Zuleyma Motta MD Work Phone: Start: 05-18-2021 Comprehensive metabo lic panel Zuleyma Motta MD Work Phone: Start: 05-18-2021 GLOMERULAR FILTRATION RATE Zuleyma Motta MD Work Phone: Start: 05-05-2020 Basic metabolic 2000 panel - Serum or Plasma Beatrice Isela Jailene Work Phone: Start: 05-05-2020 Magnesium [Mass/volu me] in Serum or Plasma Beatrice Isela Ezeneke Work Phone: Start: 05-04-2020 APTT - reference Beatrice Isela Ezeneke Work Phone: Start: 05-04-2020 Cardiac catheterization Librado Grady Work Phone: Start: 05-04-2020 Drugs of abuse urine screening test Demar Hua Work Phone: Start: 05-04-2020 Echocardiography Marina Hua Work Phone: Start: 05-04-2020 APTT - reference Aref Deandre Chao Work Phone: Start: 05-04-2020 Complete blood count with white cell differential, automated Melanie Morris Work Phone: Start: 05-04-2020 Complete blood count with white cell differential, manual Melanie Morris Work Phone: Start: 05-04-2020 Comprehensive metabo lic 1999 panel - Serum or Plasma Melanie Morris Work Phone: Start: 05-04-2020 Hemoglobin A1c/Hemoglobin.total in Blood Demar Hua Work Phone: Start: 05-04-2020 Thyrotropin [Units/v olume] in Serum or Plasma by Detection limit <= 0.005 mIU/L Beatrice Dent Work Phone: Start: 05-04-2020 Troponin measurement Aldo Morris Work Phone: Start: 05-03-2020 aPTT in Blood by Coa gulation assay Melanie Morris Work Phone: Start: 05-03-2020 Complete blood count with white cell differential, automated Melanie Morris Work Phone: Start: 05-03-2020 Complete blood count with white cell differential, manual Melanie Morris Work Phone: Start: 05-03-2020 Comprehensive metabo lic 1999 panel - Serum or Plasma Melanie Morris Work Phone: Start: 05-03-2020 Lipid 1996 panel - S raz or Plasma Melanie Morris Work Phone: Start: 05-03-2020 Troponin measurement Aldo Morris Work Phone: SARS-CoV-2 & FLU Ant igen (Rapid) INSTRUCTOR OF EDUCATION-C Charles Charles INSTRUCTOR OF EDUCATION Work Phone: SARS-CoV-2 & FLU Ant igen (Rapid) INSTRUCTOR OF EDUCATION-C Charles Charles INSTRUCTOR OF EDUCATION Work Phone: Viral antigen assay INSTRUCTOR OF EDUCATION-C Fritz Charles INSTRUCTOR OF EDUCATION Work Phone: Plan of Treatment Date Care Activity Detail Author Start: 08-30-2029 Lipid panel Lipid Screening [facility] Start: 07-22-2028 Lipid panel Lipid Screening [facility] Start: 08-31-2027 Diabetes Screening Diabetes Screenin g [facility] Start: 08-20-2027 Diabetes Screening Diabetes Screenin g [facility] Start: 07-21-2027 Diabetes Screening Diabetes Screenin g [facility] Start: 05-18-2027 Lipid 1996 panel - S raz or Plasma Lipid Screening [facility] Start: 05-18-2027 Lipid panel Lipid Screening [facility] Start: 05-18-2027 LIPID SCREEN LIPID SCREEN [facility] Start: 05-18-2027 PROSTATE CANCER SCREENING DISCUSSION PROSTATE CANCER SCREENING DISCUSSION [facility] Start: 05-18-2027 Prostate specific antigen measurement Prostate Cancer Screening Discussion [facility] Start: 04-14-2027 Diabetes Screening Diabetes Screenin g [facility] Start: 07-22-2026 Diabetes Screening Diabetes Screenin g [facility] Start: 01-15-2026 Diabetes Screening Diabetes Screenin g [facility] Start: 10-01-2025 Annual PCP Team Seam Rubber trisha Disease Visit Annual PCP Team Chronic Disease Visit [facility] Start: 10-01-2025 BP Controlled (<130/80) BP Controlle d (<130/80) [facility] Start: 09-15-2025 BP Controlled (<130/80) BP Controlle d (<130/80) [facility] Start: 09-03-2025 Annual PCP Team Seam Rubber trisha Disease Visit Annual PCP Team Chronic Disease Visit [facility] Start: 08-30-2025 Annual PCP Team Seam Rubber trisha Disease Visit Annual PCP Team Chronic Disease Visit [facility] Start: 08-30-2025 BP Controlled (<130/80) BP Controlle d (<130/80) [facility] Start: 08-30-2025 Hepatitis B surface antibody level LDL Cholesterol [facility] Start: 08-19-2025 BP Controlled (<130/80) BP Controlle d (<130/80) [facility] Start: 07-15-2025 BP Controlled (<130/80) BP Controlle d (<130/80) [facility] Start: 06-06-2025 End: 06-06-2025 Patient encounter procedure 06/06/2025 2:00 PM EST Office Visit Cardiology [address] [place] [address] Alfred Shelby MD [address] [place] [address] New patient Referred by DR. Rachel Cardiology Comment on above: New patient Referred by DR. Rachel Start: 05-31-2025 Annual PCP Team Seam Rubber trisha Disease Visit Annual PCP Team Chronic Disease Visit [facility] Start: 05-31-2025 BP Controlled (<130/80) BP Controlle d (<130/80) [facility] Start: 05-18-2025 DIABETES SCREEN DIABETES SCREEN [facility] Start: 05-18-2025 Diabetes Screening Diabetes Screenin g [facility] Start: 04-25-2025 BP Controlled (<130/80) BP Controlle d (<130/80) [facility] Start: 04-14-2025 Annual PCP Team Seam Rubber trisha Disease Visit Annual PCP Team Chronic Disease Visit [facility] Start: 04-14-2025 BP Controlled (<130/80) BP Controlle d (<130/80) [facility] Start: 04-04-2025 End: 04-04-2025 Patient encounter procedure 04/04/2025 1:40 PM EST Office Visit Internal Medicine [place] [address] [place] [address] Leah Shaikh, 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 [address] [facility] [place] [address] 6 month follow up Internal Medicine [place] Comment on above: 6 month follow up Start: 01-21-2025 End: 01-21-2025 Patient encounter procedure Pulmonary Medicine Comment on above: 6 MTH F/U ASTHMA / C OPD Start: 01-13-2025 End: 01-13-2025 Admission to same day surgery center 01/13/2025 11:41 AM EDT - 01/13/2025 1:51 PM EDT Surgery [facility] Surgery [address] [place] [address] Alissa Rachel, DO [address] [place] [address] LASER ABLATION VEIN, EXTREMITY, FIRST VEIN TREATED [facility] Comment on above: LASER ABLATION VEIN, EXTREMITY, FIRST VEIN TREATED Start: 01-13-2025 End: 01-13-2025 Endoven abltj incmptnt vein xtr laser 1st vein LASER ABLATION VEIN, EXTREMITY, FIRST VEIN TREATED Varicose veins of right lower extremity with pain 01/13/2025 11:41 AM EDT ME OR Start: 01-13-2025 Subsequent hospital visit by physician 01/13/2025 11:41 AM EDT Hospital Encounter [facility] Surgery [address] [place] [address] Alissa Rachel, DO [address] [place] [address] Varicose veins of right lower extremity with pain [I83.811] [facility] Surgery Comment on above: Varicose veins of ri ght lower extremity with pain [I83.811] Start: 01-11-2025 End: 01-11-2025 Patient encounter procedure 01/11/2025 11:00 AM EDT Office Visit Pulmonary Medicine [address] [place], [place] [id number] Kat Zazueta APRN.ASSISTANT TODDLER TEACHER [address] [place], [place] [id number] f/u / wants cpap machine back. pt wants reminder call the day before Pulmonary Medicine Comment on above: f/u / wants cpap mac blanca back. pt wants reminder call the day before Start: 12-27-2024 Influenza vaccination Influenza Vacc ine (#1) [facility] Start: 12-23-2024 End: 12-23-2024 Patient encounter procedure Pulmonary Medicine Comment on above: LCS Pt needs to do CT pr ior to visit. Annual LCS Start: 12-21-2024 End: 12-21-2024 Patient encounter procedure Pulmonary Medicine Comment on above: f/u / wants cpap mac blanca back. pt wants reminder call the day before Start: 12-06-2024 End: 12-06-2024 Patient encounter procedure 12/06/2024 2:30 PM EDT Office Visit Pulmonary Medicine [address] [place] [address] Eliana Cortes APRN.ASSISTANT TODDLER TEACHER [address] [place] [address] f/u Pulmonary Medicine Comment on above: f/u Start: 11-25-2024 Annual PCP Team Seam Rubber trisha Disease Visit Annual PCP Team Chronic Disease Visit [facility] Start: 11-25-2024 Anxiety Screening Anxiety Screening [facility] Start: 11-25-2024 BP Controlled (<130/80) BP Controlle d (<130/80) [facility] Start: 11-25-2024 Depression Screening Depression Scre ening [facility] Start: 11-25-2024 Screening for malign ant neoplasm of colon Colorectal Cancer Screening [facility] Comment on above: Postponed from 07/09 (Declined at this time) Start: 11-23-2024 End: 11-23-2024 Patient encounter procedure 11/23/2024 2:45 PM EDT Office Visit Vascular Surgery [address] [place] [address] Alissa Rachel, DO [address] [place] [address] follow up Vascular Surgery Comment on above: follow up Start: 11-15-2024 End: 11-15-2024 Patient encounter procedure 11/15/2024 1:30 PM EDT Office Visit Vasculary Surgery [address] [place], [place] [id number] Dx: Iliac artery aneurysm, left [I72.3] Vasculary Surgery Comment on above: Dx: Iliac artery ane urysm, left [I72.3] Start: 11-10-2024 Annual PCP Team Seam Rubber trisha Disease Visit Annual PCP Team Chronic Disease Visit [facility] Start: 11-10-2024 BP Controlled (<130/80) BP Controlle d (<130/80) [facility] Start: 10-19-2024 End: 10-19-2024 Patient encounter procedure 10/19/2024 11:00 AM EDT Office Visit Vascular Surgery [address] [facility] [place] [address] Alissa Rachel DO [address] [place] [address] Iliac artery aneurysm, left [I72.3] Vascular Surgery Comment on above: Iliac artery aneurys m, left [I72.3] Start: 10-12-2024 Annual PCP Team Seam Rubber trisha Disease Visit Annual PCP Team Chronic Disease Visit [facility] Start: 10-12-2024 BP Controlled (<130/80) BP Controlle d (<130/80) [facility] Start: 10-10-2024 BP Controlled (<130/80) BP Controlle d (<130/80) [facility] Start: 10-01-2024 End: 10-01-2024 Patient encounter procedure 10/01/2024 1:00 PM EDT Office Visit Internal Medicine [place] [address] [place] [address] Leah Shaikh, 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 [address] [place] [address] followup 4 weeks bp [facility] [place] Comment on above: followup 4 weeks bp Start: 09-15-2024 End: 09-15-2024 Patient encounter procedure General Surgery Comment on above: Abdominal Pain Abdominal Pain Lap V entral hernia complete Start: 09-07-2024 End: 09-07-2024 Patient encounter procedure 09/07/2024 2:00 PM EDT Office Visit Neurology [address] [place] [address] MARGARITO (obstructive sleep apnea) [G47.33] Neurology Comment on above: MARGARITO (obstructive sle ep apnea) [G47.33] Start: 09-03-2024 End: 09-03-2024 Patient encounter procedure 09/03/2024 1:00 PM EDT Office Visit Internal Medicine [place] [address] [place] [address] Leah Shaikh, 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 [address] [place] [address] abdomen pain [facility] [place] Comment on above: abdomen pain Start: 08-30-2024 End: 08-30-2024 Patient encounter procedure 08/30/2024 1:00 PM EDT Office Visit Internal Medicine [place] [address] [place] [address] Leah Shaikh, 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 [address] [place] [address] follow up 6 weeks [facility] [place] Comment on above: follow up 6 weeks Start: 08-21-2024 Annual PCP Team Seam Rubber trisha Disease Visit Annual PCP Team Chronic Disease Visit [facility] Start: 08-21-2024 BP Controlled (<130/80) BP Controlle d (<130/80) [facility] Start: 08-19-2024 End: 08-19-2024 Patient encounter procedure Neurology Comment on above: SLEEP APNEA Need records. SLEEP APNEA Start: 08-11-2024 End: 08-11-2024 Patient encounter procedure 08/11/2024 2:30 PM EDT Office Visit General Surgery [address] [place] [address] Victoria Jurado, 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 [address] [place] [address] Post op Surgery Hernia 07-27 General Surgery Comment on above: Post op Surgery Patrica ia 07-27 Start: 07-27-2024 End: 07-27-2024 Admission to same day surgery center [facility] Surgery Comment on above: LAPAROSCOPIC HERNIOR RHAPHY FOR REDUCIBLE VENTRAL LESS THAN 3cm Start: 07-27-2024 End: 07-27-2024 LAPAROSCOPIC HERNIORRHAPHY FOR REDUCIBLE VENTRAL LESS THAN 3cm ME OR Start: 07-27-2024 Subsequent hospital visit by physician [facility] Surgery Comment on above: Ventral hernia with gangrene [K43.7] Start: 07-27-2024 End: 07-27-2024 Admission to same day surgery center 07/27/2024 7:30 AM EDT - 07/27/2024 8:52 AM EDT Surgery [facility] Surgery [address] [place] [address] Michelle Castaneda MD [address] [facility] [place] [address] LAPAROSCOPIC HERNIORRHAPHY FOR REDUCIBLE VENTRAL LESS THAN 3cm [facility] Surgery Comment on above: LAPAROSCOPIC HERNIOR RHAPHY FOR REDUCIBLE VENTRAL LESS THAN 3cm Start: 07-27-2024 End: 07-27-2024 LAPAROSCOPIC HERNIORRHAPHY FOR REDUCIBLE VENTRAL LESS THAN 3cm LAPAROSCOPIC HERNIORRHAPHY FOR REDUCIBLE VENTRAL LESS THAN 3cm Ventral hernia with gangrene 07/27/2024 7:30 AM EDT ME OR Start: 07-27-2024 Subsequent hospital visit by physician 07/27/2024 7:30 AM EDT Hospital Encounter [facility] Surgery [address] [place] [address] Michelle Castaneda MD [address] [facility] [place] [address] Ventral hernia with gangrene [K43.7] [facility] Surgery Comment on above: Ventral hernia with gangrene [K43.7] Start: 07-22-2024 Annual PCP Team Seam Rubber trisha Disease Visit Annual PCP Team Chronic Disease Visit [facility] Start: 07-22-2024 Hepatitis B surface antibody level LDL Cholesterol [facility] Start: 07-20-2024 End: 07-20-2024 Anesthesia consultation 07/20/2024 12:40 PM EDT PAT Pre Anesthesia [address] [place] [address] 1, Pacc [place] [address] [place] [address] DOS 07/27 Pre Anesthesia Comment on above: DOS 07/27 Start: 07-20-2024 End: 07-20-2024 Patient encounter procedure 07/20/2024 10:30 AM EDT Office Visit Pulmonary Medicine [address] [place] [address] Homero Escamilla MD [address] [place] [address] Pre Op clearance Pulmonary Medicine Comment on above: Pre Op clearance Start: 07-20-2024 End: 07-20-2024 ambulatory [facility] Comment on above: pre-op clearance Start: 07-16-2024 Annual PCP Team Seam Rubber trisha Disease Visit Annual PCP Team Chronic Disease Visit [facility] Start: 07-16-2024 BP Controlled (<130/80) BP Controlle d (<130/80) [facility] Start: 07-15-2024 End: 07-15-2024 Patient encounter procedure 07/15/2024 1:30 PM EDT Office Visit General Surgery [address] [place] [address] Michelle Castaneda MD [address] [place] [address] Umbilical hernia without obstruction and without gangrene [K42.9] General Surgery Comment on above: Umbilical hernia wit hout obstruction and without gangrene [K42.9] Start: 2024 RSV Vaccine (1 - Ris k 60-74 years 1-dose series) RSV Vaccine (1 - Risk 60-74 years 1-dose series) [facility] Start: 06-25-2024 Annual PCP Team Seam Rubber trisha Disease Visit Annual PCP Team Chronic Disease Visit [facility] Start: 06-04-2024 Annual PCP Team Seam Rubber trisha Disease Visit Annual PCP Team Chronic Disease Visit [facility] Start: 06-04-2024 BP Controlled (<130/80) BP Controlle d (<130/80) [facility] Start: 05-27-2024 End: 05-27-2024 Patient encounter procedure 05/27/2024 1:40 PM EST Office Visit Internal Medicine [place] [address] [facility] [place] [address] Samir Jordan MD [address] [facility] [place] [address] 6 month follow-up Internal Medicine [place] Comment on above: 6 month follow-up Start: 05-13-2024 End: 08-12-2024 Basic metabolic 2000 panel - Serum or Plasma BASIC METABOLIC PANEL Lab Routine Kidney insufficiency Expected: 05/13/2024, Expires: 08/12/2024 [facility] Comment on above: Expected: 05/13/2024 , Expires: 08/12/2024 Start: 05-13-2024 End: 08-12-2024 CBC panel - Blood by Automated count COMPLETE BLOOD COUNT Lab Routine Kidney insufficiency Expected: 05/13/2024, Expires: 08/12/2024 [facility] Work Phone: Comment on above: Expected: 05/13/2024 , Expires: 08/12/2024 Start: 04-14-2024 End: 07-14-2024 Comprehensive metabolic 2000 panel - Serum or Plasma [facility] Work Phone: Comment on above: Expected: 04/14/2024 , Expires: 07/14/2024 Start: 04-14-2024 End: 07-14-2024 Magnesium [Mass/volume] in Serum or Plasma [facility] Comment on above: Expected: 04/14/2024 , Expires: 07/14/2024 Start: 03-27-2024 Annual PCP Team Seam Rubber trisha Disease Visit Annual PCP Team Chronic Disease Visit [facility] Start: 03-27-2024 BP Controlled (<130/80) BP Controlle d (<130/80) [facility] Start: 02-17-2024 End: 02-17-2024 Patient encounter procedure 02/17/2024 2:45 PM EDT Office Visit Pulmonary Medicine [address] [place] [address] Homero Escamilla MD [address] [place] [address] 6 MTH F/U COPD Pulmonary Medicine Comment on above: 6 MTH F/U COPD Start: 01-29-2024 BP Controlled (<130/80) BP Controlle d (<130/80) [facility] Start: 01-16-2024 Annual PCP Team Seam Rubber trisha Disease Visit Annual PCP Team Chronic Disease Visit [facility] Start: 01-16-2024 BP Controlled (<130/80) BP Controlle d (<130/80) [facility] Start: 01-16-2024 Hepatitis B Vaccine (1 of 3 - 19+ 3-dose series) Hepatitis B Vaccine (1 of 3 - 19+ 3-dose series) [facility] Comment on above: Postponed from 07/09 (Declined at this time) Start: 01-16-2024 Hepatitis B Vaccine (1 of 3 - 3-dose series) Hepatitis B Vaccine (1 of 3 - 3-dose series) [facility] Comment on above: Postponed from 07/09 (Declined at this time) Start: 12-28-2023 Covid-19 Vaccine ( season) Covid-19 Vaccine ( season) [facility] Start: 12-28-2023 Influenza vaccination Influenza Vacc ine (#1) [facility] Start: 12-27-2023 ANNUAL PCP TEAM RESEARCH ASSOCIATE PROFESSOR TRISHA DISEASE VISIT ANNUAL PCP TEAM CHRONIC DISEASE VISIT [facility] Start: 12-27-2023 BP CONTROLLED (<130/80) BP CONTROLLE D (<130/80) [facility] Start: 11-26-2023 End: 11-26-2023 Patient encounter procedure 11/26/2023 3:00 PM EDT Office Visit [facility] [place] [address] [place], [place] [id number] Samir Jordan MD [address] [place], [place] [id number] 3 month follow up with Dr. Jordan [facility] [place] Comment on above: 3 month follow up [facility] Dr. Jordan Start: 11-21-2023 End: 11-21-2023 Patient encounter procedure 11/21/2023 2:20 PM EDT Office Visit Internal Medicine [place] [address] [place], [place] [id number] Samir Jordan MD [address] [place], [place] [id number] 3 month follow up [address]. Jordan [facility] [place] Comment on above: 3 month follow up [facility] Dr. Jordan Start: 11-17-2023 End: 02-16-2024 Basic metabolic 2000 panel - Serum or Plasma BASIC METABOLIC PANEL Lab Routine Primary hypertension Expected: 11/17/2023 (Approximate), Expires: 02/16/2024 [facility] Comment on above: Expected: 11/17/2023 (Approximate), Expires: 02/16/2024 Start: 11-17-2023 End: 02-16-2024 Lipid 1996 panel - Serum or Plasma LIPID PANEL BASIC Lab Routine Hyperlipidemia, unspecified hyperlipidemia type Expected: 11/17/2023 (Approximate), Expires: 02/16/2024 [facility] Work Phone: Comment on above: Expected: 11/17/2023 (Approximate), Expires: 02/16/2024 Start: 11-07-2023 Influenza vaccination LUNG CANCER [facility] Start: 11-07-2023 Screening for malign ant neoplasm of lung Lung Cancer Screening [facility] Start: 10-23-2023 BP CONTROLLED (<130/80) BP CONTROLLE D (<130/80) [facility] Start: 10-15-2023 BP CONTROLLED (<130/80) BP CONTROLLE D (<130/80) [facility] Start: 10-13-2023 End: 10-13-2023 Patient encounter procedure 10/13/2023 3:40 PM EDT Office Visit Internal Medicine [place] [address] [place] [address] Samir Jordan MD [address] [place] [address] follow up from [facility] Medicine [place] Comment on above: follow up from exp c are Start: 09-18-2023 ANNUAL PCP TEAM RESEARCH ASSOCIATE PROFESSOR TRISHA DISEASE VISIT ANNUAL PCP TEAM CHRONIC DISEASE VISIT [facility] Start: 09-06-2023 ANNUAL PCP TEAM RESEARCH ASSOCIATE PROFESSOR TRISHA DISEASE VISIT ANNUAL PCP TEAM CHRONIC DISEASE VISIT [facility] Start: 09-06-2023 BP CONTROLLED (<130/80) BP CONTROLLE D (<130/80) [facility] Start: 08-17-2023 BP CONTROLLED (<130/80) BP CONTROLLE D (<130/80) [facility] Start: 08-16-2023 ANNUAL PCP TEAM RESEARCH ASSOCIATE PROFESSOR TRISHA DISEASE VISIT ANNUAL PCP TEAM CHRONIC DISEASE VISIT [facility] Start: 08-16-2023 BP CONTROLLED (<130/80) BP CONTROLLE D (<130/80) [facility] Start: 07-30-2023 BP CONTROLLED (<130/80) BP CONTROLLE D (<130/80) [facility] Start: 07-27-2023 [facility] Start: 06-29-2023 ANNUAL PCP TEAM RESEARCH ASSOCIATE PROFESSOR TRISHA DISEASE VISIT ANNUAL PCP TEAM CHRONIC DISEASE VISIT [facility] Start: 06-15-2023 [facility] Start: 06-15-2023 [facility] Start: 05-28-2023 BP CONTROLLED (<130/80) BP CONTROLLE D (<130/80) [facility] Start: 05-18-2023 Hepatitis B surface antibody level LDL CHOLESTEROL [facility] Start: 05-17-2023 ANNUAL PCP TEAM RESEARCH ASSOCIATE PROFESSOR TRISHA DISEASE VISIT ANNUAL PCP TEAM CHRONIC DISEASE VISIT [facility] Start: 05-17-2023 SHINGRIX VACCINE (1 of 2) SHINGRIX VACCINE (1 of 2) [facility] Comment on above: Postponed from 07/09 (Declined at this time) Start: 05-17-2023 Urine microalbumin profile [facility] Comment on above: Postponed from 07/09 (Declined at this time) Postponed from 07/31 (Declined at this time) Start: 04-28-2023 Behavioral Health Screening Behavioral Health Screening [facility] Start: 02-09-2023 [facility] Start: 01-15-2023 End: 03-17-2023 Natriuretic peptide.B prohormone N-Terminal [Mass/volume] in Serum or Plasma [facility] Work Phone: Comment on above: Expected: 01/15/2023 , Expires: 03/17/2023 Start: 01-15-2023 End: 03-17-2023 Thyrotropin [Units/volume] in Serum or Plasma [facility] Work Phone: Comment on above: Expected: 01/15/2023 , Expires: 03/17/2023 Start: 12-27-2022 Covid-19 Vaccine ( season) Covid-19 Vaccine ( season) [facility] Start: 12-27-2022 Influenza vaccination C [facility] Start: 12-24-2022 Patient discharge [facility] Start: 12-22-2022 Admission procedure [facility] Start: 12-22-2022 Following clinical pathway protocol [facility] Start: 12-22-2022 Assessment of risk o f venous thromboembolism [facility] Start: 12-22-2022 Catheterization of vein [facility] Start: 12-22-2022 Incentive spirometry [facility] Start: 12-22-2022 Insertion of cathete r into peripheral vein [facility] Start: 12-22-2022 Measuring intake and output [facility] Start: 12-22-2022 Oxygen therapy [facility] Start: 12-22-2022 Providing care accor ding to standard [facility] Start: 12-22-2022 Provision of activit y privileges [facility] Start: 12-22-2022 Referral to occupati onal therapist [facility] Start: 12-22-2022 Referral to service [facility] Start: 12-22-2022 [facility] Start: 12-22-2022 Verification routine [facility] Start: 12-22-2022 Consultation [facility] Start: 11-30-2022 [facility] Start: 10-25-2022 Influenza vaccination INFLUENZA (#1) [facility] Comment on above: Postponed from 12/27 (Declined at this time) Start: 07-29-2022 End: 09-28-2022 JAYLEN [facility] Work Phone: Comment on above: Expected: 07/29/2022 , Expires: 09/28/2022 Start: 06-15-2022 Measurement of occul t blood in stool specimen using immunoassay [facility] Start: 04-12-2022 [facility] Start: 02-18-2022 [facility] Work Phone: Start: 11-20-2021 Blood chemistry [facility] Work Phone: Start: 11-19-2021 Blood chemistry [facility] Work Phone: Start: 11-18-2021 Blood chemistry [facility] Work Phone: Start: 11-17-2021 Blood chemistry [facility] Work Phone: Start: 11-16-2021 Blood chemistry [facility] Work Phone: Start: 11-15-2021 Blood chemistry [facility] Work Phone: Start: 11-14-2021 Blood chemistry [facility] Work Phone: Start: 11-13-2021 Patient discharge [facility] Work Phone: Start: 11-13-2021 Application of intermittent pneumatic compression device [facility] Work Phone: Start: 11-10-2021 Dual pressure spontaneous ventilation support [facility] Work Phone: Start: 11-10-2021 Application of intermittent pneumatic compression device [facility] Work Phone: Start: 11-10-2021 [facility] Work Phone: Start: 11-09-2021 Wound care [facility] Work Phone: Start: 11-09-2021 Following clinical pathway protocol [facility] Work Phone: Start: 11-09-2021 Ambulation without limitation [facility] Work Phone: Start: 11-09-2021 Assessment of risk o f venous thromboembolism [facility] Work Phone: Start: 11-09-2021 Catheterization of vein [facility] Work Phone: Start: 11-09-2021 Consultation [facility] Work Phone: Start: 11-09-2021 Incentive spirometry [facility] Work Phone: Start: 11-09-2021 Insertion of cathete r into peripheral vein [facility] Work Phone: Start: 11-09-2021 Oxygen therapy [facility] Work Phone: Start: 11-09-2021 Providing care accor ding to standard [facility] Work Phone: Start: 11-09-2021 Provision of activit y privileges [facility] Work Phone: Start: 11-09-2021 Referral to occupati onal therapist [facility] Work Phone: Start: 11-09-2021 End: 11-09-2021 Referral to service [facility] Work Phone: Start: 11-09-2021 [facility] Work Phone: Start: 11-09-2021 Admission procedure [facility] Work Phone: Start: 11-09-2021 Verification routine [facility] Work Phone: Start: 11-09-2021 [facility] Work Phone: Start: 11-09-2021 Inhalation therapy procedure [facility] Work Phone: Start: 11-09-2021 Patient referral to dietitian [facility] Work Phone: Start: 12-27-2020 Influenza vaccinatio n given INFLUENZA VACCINE (#1) [facility] Start: 12-28-2019 Influenza vaccinatio n given Sequential Influenza Vaccine (#1) [facility] Start: 03-03-2019 Prostate specific antigen measurement PSA Level [facility] Start: 12-27-2017 Influenza vaccination SEQUENTI AL INFLUENZA VACCINE (#1) [facility] Start: 12-26-2017 End: 12-26-2017 Ambulatory 12/26/2017 Office Visit Physical Medicine and Rehabilitation Shawna Rodriguez MD [address] [place], [place] [id number] Aiden Esquivel, DO [address] [place] [address] [facility] Start: 12-27-2016 Influenza vaccination SEQUENTI AL INFLUENZA VACCINE (#1) [facility] Work Phone: Start: 2014 Administration of he rpes zoster vaccine Zoster Vaccines (1 of 2) [facility] Start: 2014 Influenza vaccination LUNG CANCER SC [facility] Start: 2014 Screening for malign ant neoplasm of colon [facility] Start: 2014 Shingrix Vaccine (1 of 2) Shingrix Vaccine (1 of 2) [facility] Start: 2014 Zoster vaccine hzv l dasha for subcutaneous use ZOSTER (SHINGLES) VACCINE (1 of 2) [facility] Start: 02-17-2012 Screening for malign ant neoplasm of lung Low-dose CT Lung Cancer Screen [facility] Start: 2009 COLOGUARD (FIT-DNA) COLOGUARD (FIT-D NA) [facility] Start: 2009 Colonoscopy COLONOSCOPY [facility] Start: 2009 COLORECTAL CANCER SCREENING COLORECTAL CANCER SCREENING [facility] Start: [address] COLONOGRAPHY [facility] Start: 2009 FECAL OCCULT BLOOD FECAL OCCULT BLOO D [facility] Start: 2009 Screening for malign ant neoplasm of colon [facility] Start: 2009 SIGMOIDOSCOPY SIGMOIDOSCOPY [facility] Start: 07-10-1999 Fasting lipid profile LIPID SCREENIN G [facility] Start: 07-31-1996 Urine microalbumin profile DTaP,Tdap,Td Vaccine (1 - Tdap) [facility] Start: 1994 Zoledronic acid therapy ALPHA- 1 ANTITRYPSIN DEFICIENCY SCREENING [facility] Start: 1982 ANNUAL WELLNESS VISIT ANNUAL WELLNES S VISIT [facility] Start: 1982 BP CONTROLLED (<130/80) BP CONTROLLE D (<130/80) [facility] Start: 1982 Hepatitis C antibody , confirmatory test Hepatitis C Screening [facility] Start: 1980 COVID-19 Vaccine (1 of 2) COVID-19 Vaccine (1 of 2) [facility] Start: 1976 Adolescent depressio n screening assessment Depression Screening (PHQ9) [facility] Start: 1976 Depression screening using PHQ-9 (Patient Health Questionnaire 9) score DEPRESSION SCREENING [facility] Start: 07-10-1975 Diphtheria + pertuss is + tetanus vaccine (product) DTAP/TDAP/TD VACCINE (1 - Tdap) [facility] Start: 1970 PNEUMOCOCCAL (1 - PCV) PNEUMOCOCCAL (1 - PCV) [facility] Start: 1969 COVID-19 VACCINE (1) COVID-19 VACCIN E (1) [facility] Start: 07-10-1967 History and physical examination, annual for health maintenance Wellness Visit [facility] Start: 1964 HEPATITIS B (1 of 3 - 3-dose series) HEPATITIS B (1 of 3 - 3-dose series) [facility] Start: 1964 Hepatitis C screening HEPATITIS C SC REENING [facility] Start: 1964 HEPATITIS C SCREENING HEPATITIS C SC [facility] Work Phone: Start: 1964 Screening colonoscopy [facility] Work Phone: Start: 1964 End: 1964 Tetanus vaccination [facility] Work Phone: End: 05-05-2020 12 lead ECG ECG 12 Lead ECG Routine Once for 1 Occurrences starting 05/05/2020 until 05/05/2020 [facility] Comment on above: Once for 1 Occurrenc es starting 05/05/2020 until 05/05/2020 Anion gap measurement [facility] Work Phone: BUN/Creatinine ratio [facility] Work Phone: Calcium [Mass/volume ] in Serum or Plasma [facility] Work Phone: Carbon dioxide, tota l [Moles/volume] in Serum or Plasma [facility] Work Phone: Chlamydia trachomati s DNA assay [facility] Work Phone: Chloride [Moles/volu me] in Serum or Plasma [facility] Work Phone: COVID & INFLUENZA A/ B & RSV PCR, ROUTINE COVID & INFLUENZA A/B & RSV PCR, ROUTINE Microbiology Routine URI with cough and congestion Ordered: 04/25/2024 [facility] Work Phone: Comment on above: Ordered: 04/25/2024 Creatinine [Moles/volume] in Serum or Plasma [facility] Work Phone: End: 08-01-2023 Ct abdomen & pelvis w/contrast material CT ABD/PEL W IVCON Radiology Routine Umbilical hernia without obstruction and without gangrene Ventral hernia with gangrene 1 Occurrences starting 07/02/2022 until 08/01/2023 [facility] Work Phone: Comment on above: 1 Occurrences starti ng 07/02/2022 until 08/01/2023 End: 05-30-2025 CT Chest for screening WO contrast CT LUNG SCREEN WO IVCON Radiology Routine History of cigarette smoking Lung nodules 1 Occurrences starting 04/30/2024 until 05/30/2025 [facility] Work Phone: Comment on above: 1 Occurrences starti ng 04/30/2024 until 05/30/2025 End: 11-21-2023 CT LUNG SCREEN WO IVCON CT LUNG SCREEN WO IVCON Radiology Routine Former cigarette smoker Encounter for screening for lung cancer 1 Occurrences starting 10/22/2022 until 11/21/2023 [facility] Work Phone: Comment on above: 1 Occurrences starti ng 10/22/2022 until 11/21/2023 ECG B/O W INTERP (ME D OFFICE) ECG B/O W INTERP (MED OFFICE) ECG Routine 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, unspecified vessel or lesion type Ordered: 08/16/2022 [facility] Work Phone: Comment on above: Ordered: 08/16/2022 End: 05-31-2025 ECG COMPLETE ECG COMPLETE ECG Routine Hypotension, unspecified hypotension type Generalized abdominal pain 1 Occurrences starting 05/31/2024 until 05/31/2025 [facility] Work Phone: Comment on above: 1 Occurrences starti ng 05/31/2024 until 05/31/2025 ECG COMPLETE ECG COMPLETE ECG Routine Upper abdominal pain Ordered: 08/30/2024 [facility] Work Phone: Comment on above: Ordered: 08/30/2024 Glucose [Mass/volume ] in Serum or Plasma [facility] Work Phone: Hematocrit [Volume Fraction] of Blood [facility] Work Phone: Hemoglobin [Mass/vol ume] in Blood [facility] Work Phone: End: 08-19-2025 HOME SLEEP APNEA TEST (HSAT) HOME SLEEP APNEA TEST (HSAT) Procedures Routine MARGARITO (obstructive sleep apnea) 1 Occurrences starting 08/19/2024 until 08/19/2025 [facility] Work Phone: Comment on above: 1 Occurrences starti ng 08/19/2024 until 08/19/2025 Leukocytes [#/volume ] in Blood [facility] Work Phone: End: 08-18-2025 LUNG DIFFUSION CAPACITY (DLCO) LUNG DIFFUSION CAPACITY (DLCO) PFT Routine Chronic obstructive pulmonary disease, unspecified COPD type (HCC) 1 Occurrences starting 07/19/2024 until 08/18/2025 [facility] Comment on above: 1 Occurrences starti ng 07/19/2024 until 08/18/2025 Mean corpuscular hemoglobin concentration determination [facility] Work Phone: Mean corpuscular hemoglobin determination [facility] Work Phone: Measurement of renal function [facility] Work Phone: Neisseria gonorrhoea e DNA [Presence] in Cervical mucus by STEPHEN with probe detection [facility] Work Phone: Neutrophil count [facility] Work Phone: Neutrophil percent differential count [facility] Work Phone: End: 09-15-2023 NM CARDIAC PERF STRESS/PHARM NM CARDIAC PERF STRESS/PHARM Radiology Routine Encounter for other preprocedural examination 1 Occurrences starting 08/16/2022 until 09/15/2023 [facility] Work Phone: Comment on above: 1 Occurrences starti ng 08/16/2022 until 09/15/2023 Patient Education [facility] Work Phone: Patient referral [facility] Work Phone: Platelets [#/volume] in Blood [facility] Work Phone: Potassium [Moles/vol ume] in Serum or Plasma [facility] Work Phone: Red blood cell count [facility] Work Phone: Red cell distributio n width determination [facility] Work Phone: End: 08-16-2023 Screening colonoscopy COLONOSCOPY SCREENING Endoscopy Routine Special screening for malignant neoplasms, colon 1 Occurrences starting 08/15/2022 until 08/16/2023 [facility] Work Phone: Comment on above: 1 Occurrences starti ng 08/15/2022 until 08/16/2023 Sodium [Moles/volume ] in Serum or Plasma [facility] Work Phone: End: 08-18-2025 SPIROMETRY WITH DILATOR IF OBSTRUCTED SPIROMETRY WITH DILATOR IF OBSTRUCTED PFT Routine Chronic obstructive pulmonary disease, unspecified COPD type (HCC) 1 Occurrences starting 07/19/2024 until 08/18/2025 [facility] Work Phone: Comment on above: 1 Occurrences starti ng 07/19/2024 until 08/18/2025 Urea nitrogen [Mass/volume] in Serum or Plasma [facility] Work Phone: End: 02-15-2024 US ABDOMEN COMPLETE US ABDOMEN COMPLETE Radiology STACEY Abdominal distension Elevated LFTs 1 Occurrences starting 01/16/2023 until 02/15/2024 [facility] Work Phone: Comment on above: 1 Occurrences starti ng 01/16/2023 until 02/15/2024 End: 10-19-2025 US Abdominal Aorta US ABD AORTA COMPLETE [facility] Vascular Lab Routine Iliac artery aneurysm, left 1 Occurrences starting 10/19/2024 until 10/19/2025 [facility] Work Phone: Comment on above: 1 Occurrences starti ng 10/19/2024 until 10/19/2025 End: 06-25-2024 US.doppler Extremity arteries - bilateral for physiologic artery study PVR ANK PRESS CARO [facility] Vascular Lab Routine Pain in toes of both feet 1 Occurrences starting 06/26/2023 until 06/25/2024 [facility] Work Phone: Comment on above: 1 Occurrences starti ng 06/26/2023 until 06/25/2024 End: 05-18-2021 US.doppler Lower extremity vein - bilateral [facility] [employer] Work Phone: Comment on above: One time imaging One time imaging for 1 Occurrences starting 05/18/2021 until 05/18/2021 End: 11-11-2024 XR Chest PA and Lateral XR CHEST 2V FRONTAL/LAT Radiology Routine Chronic obstructive pulmonary disease with acute exacerbation (HCC) History of hemoptysis 1 Occurrences starting 10/13/2023 until 11/11/2024 [facility] Work Phone: Comment on above: 1 Occurrences starti ng 10/13/2023 until 11/11/2024 XR Chest PA and Lateral XR CHEST 2V FRONTAL/LAT Radiology Routine Chronic obstructive pulmonary disease with acute exacerbation (HCC) History of hemoptysis 10/13/2023 4:28 PM EDT [facility] End: 10-05-2023 XR SHOULDER GENERAL 3V OR MORE AP/TRUE AP/OTHER RIGHT XR SHOULDER GENERAL 3V OR MORE AP/TRUE AP/OTHER RIGHT Radiology Routine Acute pain of right shoulder 1 Occurrences starting 09/05/2022 until 10/05/2023 [facility] Work Phone: Comment on above: 1 Occurrences starti ng 09/05/2022 until 10/05/2023 XR SHOULDER GENERAL 3V OR MORE AP/TRUE AP/OTHER RIGHT XR SHOULDER GENERAL 3V OR MORE AP/TRUE AP/OTHER RIGHT Radiology Routine Acute pain of right shoulder 09/05/2022 7:55 PM EDT [facility] Work Phone: [facility] Immunizations Immunization Date Immunization Notes Care Provider Fa yelena 04-14-2024 COVID-19 vaccine, ag e 12+ yr (PFIZER-BIONTECH [facility]) Samir Jordan MD Work Phone: [facility] 04-14-2024 influenza, seasonal, injectable Samir Jordan MD Work Phone: [facility] 04-14-2024 influenza virus vaccine, unspecified formulation Leah 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 Work Phone: [facility] 03-27-2023 COVID-19 vaccine, ag e 12+ yr, season (PFIZER-BIONTECH) Samir Jordan MD Work Phone: [facility] 01-15-2023 influenza, injectabl e, quadrivalent, contains preservative Leah Older 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 Work Phone: [facility] Work Phone: 01-15-2023 influenza virus vaccine, unspecified formulation Samir Jordan MD Work Phone: [facility] 06-28-2022 pneumococcal Conjugate, unspecified formulation Samir Jordan MD Work Phone: [facility] Work Phone: 06-28-2022 pneumococcal (PCV20) vaccine, 20 valent (PREVNAR 20) Samir Jordan MD Work Phone: [facility] 12-11-2021 COVID-19 booster vaccine, age 12+ yr, bivalent (MODERNA) Pulm Wstr Work Phone: [facility] 09-27-2020 COVID-19 original vaccine, full dose, monovalent (MODERNA) Pulm Wstr Work Phone: [facility] 09-01-2020 COVID-19 original vaccine, age 12+ yr, monovalent (PFIZER-BIONTECH - PURPLE TOP) Pulm Wstr Work Phone: [facility] 07-30-1996 TD(adult) unspecifie d formulation Samir Jordan MD Work Phone: [facility] Work Phone: Payers Date Payer Category Payer Self-pay [id number] 2018 Medicaid [id number] 2015 Unknown [id number] 1. [id number] 1964 Unknown [id number] 2.16.8 [id number] 1964 Unknown [id number] 2.16.8 [id number] 1964 Unknown [id number] 2.16.8 40.1.641538.3.579.2.902 1964 Unknown [id number] 2.16.8 [id number] 1964 Unknown [id number] 2.16.8 40.1.492523.3.579.2.419 1964 Unknown [id number] 2.16.8 40.1.893729.3.579.2.419 1964 Unknown [id number] 2.16.8 40.1.182497.3.579.2.419 1964 Unknown [id number] 2.16.84 0.1.500459.3.579.2.651 1964 Unknown [id number] 2.16.84 0.1.522830.3.579.2.651 1964 Unknown [id number] 2.16.84 0.1.875443.3.579.2.651 1964 Unknown [id number] 2.16.84 0.1.545658.3.579.2.651 1964 Unknown [id number] 2.16.84 0.1.319522.3.579.2.651 1964 Unknown [id number] 2.16.84 0.1.863860.3.579.2.651 1964 Unknown [id number] 2.16.84 0.1.899642.3.579.2.651 1964 Unknown [id number] 2.16.84 0.1.680693.3.579.2.651 1964 Unknown [id number] 2.16.84 0.1.752878.3.579.2.651 1959 Unknown [id number] 2. [id number] Unknown [id number] 2.16.8 [id number] Unknown [id number] 2.16.8 [id number] Unknown [id number] 2.16.8 [id number] Social History Date Type Detail Facility Start: 11-09-2015 [facility] Work Phone: Start: 1982 End: 05-02-2020 History of tobacco use Cigarette Smoker [facility] Work Phone: Start: 11-09-2015 End: 07-15-2024 Cigarettes smoked current (pack per day) - Reported [facility] Work Phone: End: 05-02-2020 History of tobacco use Chews Tobacco [facility] Work Phone: Start: 1965 Sex Assigned At Not on file O [facility] Work Phone: Start: 04-27-2017 End: 04-14-2024 Tobacco smoking status NHIS Former smoker [facility] Start: 1981 End: 05-02-2020 History of tobacco use Current smoker [facility] Work Phone: Start: 01-29-2018 End: 05-07-2020 Tobacco use and exposure Current user [facility] Start: 01-29-2018 End: 05-07-2020 Alcohol intake Current non-drinker of alcohol (finding) [facility] Exposure to SARS-CoV -2 (event) Not sure [facility] Start: 05-18-2021 End: 04-14-2024 Tobacco use and exposure Former user [facility] Start: 05-18-2021 End: 11-23-2024 Alcohol intake Ex-drinker (finding) [facility] Start: 09-09-2021 End: 07-26-2023 Tobacco smoking status NCIS Unknown if ever smoked [facility] Start: 1965 Sex Assigned At Male [facility] End: 05-02-2020 History of tobacco use Snuff User [facility] Work Phone: Start: 05-28-2022 End: 07-02-2022 Alcohol intake Lifetime non-drinker (finding) [facility] Start: 05-17-2022 History SDOH Stress 1 [facility] Start: 05-17-2022 Tobacco Comment Age 16-05/02/2019 [facility] Start: 10-22-2022 End: 07-15-2024 Tobacco use panel [facility] Work Phone: Start: 09-23-2019 Adult Depression Screening Assessment 0 [facility] Work Phone: Do you feel stress - tense, restless, nervous, or anxious, or unable to sleep at night because your mind is troubled all the time - these days [OSQ] Not at all [facility] Work Phone: Medical Equipment Procedure Code Equipment Code Equipment Origin al Text Equipment Identifier Dates Stent 3.00 X 15 Celsowilmerwarren Leavitta Rx - [id number] Start: 05-04-2020 Comment on above: Description: lad Stent 3.50 X 15 Xiejenn Beltre Rx - [id number] Start: 05-04-2020 Comment on above: Description: circ Mesh Parietex 8.6cm Small Collagen Surgical Patch [facility] - [id number] Start: 07-27-2024 Goals Date Patient Goal Desired Activity /State Personal health goal Personal health goal Functional Status Date Assessment Result Facility 12-24-2022 Functional status Ambulates [facility] Work Phone: 11-13-2021 Functional status Bathroom Privilege [facility] Work Phone: Mental Status Date Assessment Result Facility 12-24-2022 Cognitive function Voice/Name [facility] Work Phone: 12-21-2022 Cognitive function Level Of Cons ciousness Awake;Alert;Appropriate;Follow s Commands [facility] Work Phone: 11-13-2021 Cognitive function Voice/Name [facility] Work Phone: 11-12-2021 Cognitive function Appropriate;Cooperativ e [facility] Work Phone: 09-09-2021 Cognitive function Level Of Cons ciousness Awake;Alert;Appropriate [facility] Work Phone: Clinical Notes 11-26-2019 to 12-23-2024 Telephone Encounter - Tracy Painter - 12/23/2024 4:03 PM EDTTelephone Encounter - Tracy Painter - 12/23/2024 4:03 PM EDTTelephone Encounter - Nava Caal - 12/22/2024 8:57 AM EDT Note Date & Type Note Facility 12-23-2024 Telephone encounter Note Spoke to patient to schedule procedure, he will check with his transportation and he will call back to set up a date. Encounter closed. [facility] Work Phone: 12-23-2024 Miscellaneous Notes Spoke to patient to schedule procedure, he will check with his transportation and he will call back to set up a date. Encounter closed. Patient called front edger regarding the procedure date. He stated he needs 48 hour notice due to needing a ride through his insurance company. Patient is calling in regards to arranging a procedure please advise the patient documented in this encounter [facility] 12-22-2024 Telephone encounter Note Patient called front edger regarding the procedure date. He stated he needs 48 hour notice due to needing a ride through his insurance company. [facility] 12-14-2024 Telephone encounter Note Patient is calling in regards to arranging a procedure please advise the patient [facility] 12-14-2024 Telephone encounter Note Prescription Refill Information The patient has been identified by name and date of : Yes Caregiver verified no other encounters exist for this prescription request: Yes Caregiver confirmed with patient/requestor that no other refills are due, in the near future, with this provider at this time: Yes The last office visit in the department: 10/01/24 Does the patient have a future office visit with this provider/department: Yes 04/04/25 Requested Prescriptions Pending Prescriptions Disp Refills chlorthalidone (HYGROTON) 25 mg tablet 30 tablet 11 Sig: Take 1 tablet by mouth once daily. Clara Sue LPN December 14, 2024 12:22 PM [facility] 12-14-2024 Miscellaneous Notes Prescription Refill Information The patient has been identified by name and date of : Yes Caregiver verified no other encounters exist for this prescription request: Yes Caregiver confirmed with patient/requestor that no other refills are due, in the near future, with this provider at this time: Yes The last office visit in the department: 10/01/24 Does the patient have a future office visit with this provider/department: Yes 04/04/25 Requested Prescriptions Pending Prescriptions Disp Refills chlorthalidone (HYGROTON) 25 mg tablet 30 tablet 11 Sig: Take 1 tablet by mouth once daily. Clara Sue LPN December 14, 2024 12:22 PM documented in this encounter [facility] 11-29-2024 Telephone encounter Note Summary: SHELBY started Kayleetrdolores Images from the original note were not included. We received pharmacy notification via fax that Breztri needs PA. PA has been submitted via cover my meds. Kemi Baig MA November 29, 2024 9:57 AM SHAWNA DAWKINS (Abrams: [email or web address]) SHELBY Rx #: [id number] Need Help? Call us at Status Sent to Plan today Drug Breztri Aerosphere 160-9-4.8MCG/ACT aerosol Form [place] Medicaid [employer] Electronic PA Form (2016 [facility]) Original Claim Info 75 [facility] 11-29-2024 Miscellaneous Notes Summary: SHELBY started Breztri Images from the original note were not included. We received pharmacy notification via fax that Breztri needs PA. PA has been submitted via cover my meds. Kemi Baig MA November 29, 2024 9:57 AM SHAWNA DAWKINS (Abrams: [id number]) PA Rx #: [id number] Need Help? Call us at Status Sent to Plan today Drug Breztri Aerosphere 160-9-4.8MCG/ACT aerosol Form [place] Medicaid [employer] Electronic PA Form (2016 [facility]) Original Claim Info 75 documented in this encounter [facility] 11-23-2024 Note HNO ID: [id number] Author: ALISSA RACHEL, DO Service: ? Author Type: Physician Type: Progress Notes Filed: 11/23/2024 17:24 Note Text: [facility]PARTMENT OF VASCULAR SURGERY OUTPATIENT VISIT DATE November 23, 2024 OUTPATIENT VISIT TYPE ESTABLISHED SERVICE DATE: 11/23/2024 SERVICE TIME: 2:55 PM PRIMARY CARE PHYSICIAN: Samir Jordan MD HISTORY OF PRESENT ILLNESS: Mr. Prajapati is a 59 year old male who presents today for a vascular surgery follow-up visit after venous reflux testing. PAST MEDICAL HISTORY Diagnosis Date Asthma ([facility]) 1990 Chronic deep vein thrombosis (DVT) of calf muscle vein of right lower extremity ([facility]) 03/27/2023 COPD (chronic obstructive pulmonary disease) ([facility]) 2021 Coronary artery disease COVID-19 07/05/2021 EIC (epidermal inclusion cyst) 11/26/2019 Fibromyalgia 10/28/2016 Folliculitis 11/26/2019 GERD (gastroesophageal reflux disease) 01/27/2019 Hyperlipidemia 07/17/2021 Hypertension 07/17/2021 Inguinal hernia Irregular heartbeat NSTEMI (non-ST elevation myocardial infarction) ([facility]) 05/03/2020 [place], [place] MARGARITO on CPAP 2012 with nocturnal O2. Pancreatitis, chronic ([facility]) 09/07/2019 Seborrheic dermatitis 11/26/2019 Shingles outbreak 09/12/2021 Spinal stenosis, lumbar region with neurogenic claudication 11/20/2015 PAST SURGICAL HISTORY Procedure Laterality Date CC CORONARY STENT 05/04/2020 ARNOLD to LAD AND Circ, [facility] HERNIA REPAIR HX Right 1964 inguinal HERNIA REPAIR HX Left 1990 inguinal HERNIA REPAIR HX 07/27/2024 LAMINECTOMY,LUMBAR 11/08/2021 Dr. Cristóbal Maldonado LAP HERNIA REPAIR W/MESH 07/27/2024 SOCIAL HISTORY Social History Tobacco Use Smoking status: Former Current packs/day: 0.00 Average packs/day: 3.0 packs/day for 38.8 years (116.4 ttl pk-yrs) Types: Cigarettes Start date: 1981 Quit date: 05/02/2020 Years since quittin.5 Smokeless tobacco: Former Types: Snuff Quit date: 05/02/2020 Tobacco comments: Age 16-05/02/2019 Vaping Use Vaping status: Former Substance Use Topics Alcohol use: Not Currently Drug use: Never MEDICATIONS: albuterol (PROVENTIL) 2.5 mg /3 mL (0.083 %) nebulizer solution Use one vial every 4 hours as needed for wheezing/shortness of breath. Use over 5-15minutes. aspirin, enteric coated (ASPIRIN, ENTERIC COATED) 81 mg EC tablet Take 1 tablet by mouth once daily. metoprolol tartrate, short acting, (LOPRESSOR) 25 mg tablet Take 1 tablet by mouth two times a day. albuterol HFA (PROVENTIL HFA, VENTOLIN HFA) 90 mcg/actuation inhaler Inhale 2 puffs as instructed every 4 hours as needed. rivaroxaban (XARELTO) 20 mg tablet Take 1 tablet by mouth daily with dinner. lisinopril (ZESTRIL) 5 mg tablet Take 1 tablet by mouth once daily. BREZTRI AEROSPHERE 160-9-4.8 mcg/actuation HFA aerosol inhaler INHALE 2 PUFFS BY MOUTH TWICE DAILY DIRECTED fluticasone (FLONASE ALLERGY RELIEF) 50 mcg/actuation nasal spray Use 2 Sprays in each nostril once daily. montelukast (SINGULAIR) 10 mg tablet Take 1 tablet by mouth daily at bedtime. omeprazole (PRILOSEC) 40 mg capsule Take 1 capsule by mouth once daily. chlorthalidone (HYGROTON) 25 mg tablet Take 1 tablet by mouth once daily. ALLERGIES: ALLERGIES Allergen Reactions Cabbage Other: See Comments dysphagia Lettuce Other: See Comments dysphagia Onion Extract Vomiting Garlic Oil GI Upset Nut - Unspecified Anaphylaxis ALL NUTS PHYSICAL EXAM: BP 102/71 (BP Site: Right Arm, BP Position: Sitting, BP Cuff Size: Regular Adult) Pulse 60 SpO2 97% General: Alert and oriented Integumentary: Normal color, no rash, no lesions. HEENT: EOM, pupils equal, round and reactive. Cardiovascular: Pulse regular. Lungs: No chest deformities or chest wall tenderness. Extremities: varicose veins bilaterally, trace edema Neurological: Normal cognition and motor skills. Diagnostic tests reviewed for today's visit: Most recent labs Most recent imaging Venous Reflux Testing RIGHT SIDE - DEEP VEINS Negative for acute deep vein thrombosis in vessels visualized. Positive for valvular incompetency in the common femoral vein. RIGHT SIDE - SUPERFICIAL VEINS Positive for valvular incompetency in the great saphenous vein. Incompetent GSV follows straight path to knee leads to several branches. Incompetent medical radiation therapist communicates at GSV at knee. Negative for valvular incompetency in the small saphenous vein. Negative for superficial thrombophlebitis in the great saphenous vein and small saphenous vein. LEFT SIDE - DEEP VEINS Negative for acute deep vein thrombosis in vessels visualized. Positive for valvular incompetency in the common femoral vein. LEFT SIDE - SUPERFICIAL VEINS Positive for valvular incompetency in the great saphenous vein. GSV discontinuous. GSV leaves fascial layer at proximal thigh is tortuous and has several branches, returns t (more content not included)... [facility] 11-23-2024 History of Present illness Narrative Images from the original note were not included. [facility] DEPARTMENT OF VASCULAR SURGERY OUTPATIENT VISIT DATE November 23, 2024 OUTPATIENT VISIT TYPE ESTABLISHED SERVICE DATE: 11/23/2024 SERVICE TIME: 2:55 PM PRIMARY CARE PHYSICIAN: Samir Jordan MD HISTORY OF PRESENT ILLNESS: Mr. Prajapati is a 59 year old male who presents today for a vascular surgery follow-up visit after venous reflux testing. PAST MEDICAL HISTORY Diagnosis Date Asthma ([facility]) 1990 Chronic deep vein thrombosis (DVT) of calf muscle vein of right lower extremity ([facility]) 03/27/2023 COPD (chronic obstructive pulmonary disease) ([facility]) 2021 Coronary artery disease COVID-19 07/05/2021 EIC (epidermal inclusion cyst) 11/26/2019 Fibromyalgia 10/28/2016 Folliculitis 11/26/2019 GERD (gastroesophageal reflux disease) 01/27/2019 Hyperlipidemia 07/17/2021 Hypertension 07/17/2021 Inguinal hernia Irregular heartbeat NSTEMI (non-ST elevation myocardial infarction) ([facility]) 05/03/2020 [place], [place] MARGARITO on CPAP 2012 with nocturnal O2. Pancreatitis, chronic (HCC) 09/07/2019 Seborrheic dermatitis 11/26/2019 Shingles outbreak 09/12/2021 Spinal stenosis, lumbar region with neurogenic claudication 11/20/2015 PAST SURGICAL HISTORY Procedure Laterality Date CC CORONARY STENT 05/04/2020 ARNOLD to LAD & Circ, [facility] HERNIA REPAIR HX Right 1964 inguinal HERNIA REPAIR HX Left 1990 inguinal HERNIA REPAIR HX 07/27/2024 LAMINECTOMY,LUMBAR 11/08/2021 Dr. Cristóbal Maldonado LAP HERNIA REPAIR W/MESH 07/27/2024 SOCIAL HISTORY Social History Tobacco Use Smoking status: Former Current packs/day: 0.00 Average packs/day: 3.0 packs/day for 38.8 years (116.4 ttl pk-yrs) Types: Cigarettes Start date: 1981 Quit date: 05/02/2020 Years since quittin.5 Smokeless tobacco: Former Types: Snuff Quit date: 05/02/2020 Tobacco comments: Age 16-05/02/2019 Vaping Use Vaping status: Former Substance Use Topics Alcohol use: Not Currently Drug use: Never MEDICATIONS: albuterol (PROVENTIL) 2.5 mg /3 mL (0.083 %) nebulizer solution Use one vial every 4 hours as needed for wheezing/shortness of breath. Use over 5-15minutes. aspirin, enteric coated (ASPIRIN, ENTERIC COATED) 81 mg EC tablet Take 1 tablet by mouth once daily. metoprolol tartrate, short acting, (LOPRESSOR) 25 mg tablet Take 1 tablet by mouth two times a day. albuterol HFA (PROVENTIL HFA, VENTOLIN HFA) 90 mcg/actuation inhaler Inhale 2 puffs as instructed every 4 hours as needed. rivaroxaban (XARELTO) 20 mg tablet Take 1 tablet by mouth daily with dinner. lisinopril (ZESTRIL) 5 mg tablet Take 1 tablet by mouth once daily. BREZTRI AEROSPHERE 160-9-4.8 mcg/actuation HFA aerosol inhaler INHALE 2 PUFFS BY MOUTH TWICE DAILY DIRECTED fluticasone (FLONASE ALLERGY RELIEF) 50 mcg/actuation nasal spray Use 2 Sprays in each nostril once daily. montelukast (SINGULAIR) 10 mg tablet Take 1 tablet by mouth daily at bedtime. omeprazole (PRILOSEC) 40 mg capsule Take 1 capsule by mouth once daily. chlorthalidone (HYGROTON) 25 mg tablet Take 1 tablet by mouth once daily. ALLERGIES: ALLERGIES Allergen Reactions Cabbage Other: See Comments dysphagia Lettuce Other: See Comments dysphagia Onion Extract Vomiting Garlic Oil GI Upset Nut - Unspecified Anaphylaxis ALL NUTS PHYSICAL EXAM: BP 102/71 (BP Site: Right Arm, BP Position: Sitting, BP Cuff Size: Regular Adult) Pulse 60 SpO2 97% General: Alert and oriented Integumentary: Normal color, no rash, no lesions. HEENT: EOM, pupils equal, round and reactive. Cardiovascular: Pulse regular. Lungs: No chest deformities or chest wall tenderness. Extremities: varicose veins bilaterally, trace edema Neurological: Normal cognition and motor skills. Diagnostic tests reviewed for today's visit: Most recent labs Most recent imaging Venous Reflux Testing RIGHT SIDE - DEEP VEINS Negative for acute deep vein thrombosis in vessels visualized. Positive for valvular incompetency in the common femoral vein. RIGHT SIDE - SUPERFICIAL VEINS Positive for valvular incompetency in the great saphenous vein. Incompetent GSV follows straight path to knee leads to several branches. Incompetent medical radiation therapist communicates at GSV at knee. Negative for valvular incompetency in the small saphenous vein. Negative for superficial thrombophlebitis in the great saphenous vein and small saphenous vein. LEFT SIDE - DEEP VEINS Negative for acute deep vein thrombosis in vessels visualized. Positive for valvular incompetency in the common femoral vein. LEFT SIDE - SUPERFICIAL VEINS Positive for valvular incompetency in the great saphenous vein. GSV discontinuous. GSV leaves fascial layer at proximal thigh is tortuous and has several branches, returns to fascia at mid calf. Large incompetent branches, perforators and varicosities noted. Negative for valvular incompetency in the small saphenous vein. Negative for superficial thrombophlebitis in the great saphenous vein and small saphenous vein. PVRs (2023)- normal IMPRESSION: Mr. Prajapati is a 59 year old male with symptomatic varicose veins, venous insufficiency, . PLAN and RECOMMENDATIONS: Discussed procedures with Mr. Prajapati. He may benefit from intervention however his symptoms may be multifactorial in nature. He has been having persistent lower extremity heaviness and discomfort despite non-interventional therapy SIGNATURE: Alissa Rachel DO PATIENT NAME: Shawna Prajapati DATE: November 23, 2024 TIME: 2:55 PM documented in this encounter [facility] 11-18-2024 Telephone encounter Note Patient reports that his residential case manager though counseling center is working actively on locating housing. Patient reports that the thought he found an apt, but it was a 2 bedroom and they would only rent to a couple. Patient notes that he may have a rental possibility that patient is looking in to regarding apt option. This Sw noted that if she learns of any rental housing options that are available, she will reach out to patient. [facility] 11-18-2024 Miscellaneous Notes Patient reports that his residential case manager though counseling center is working actively on locating housing. Patient reports that the thought he found an apt, but it was a 2 bedroom and they would only rent to a couple. Patient notes that he may have a rental possibility that patient is looking in to regarding apt option. This Sw noted that if she learns of any rental housing options that are available, she will reach out to patient. Sw left patient message in regards to housing and if patient has any further housing assistance needs to let this SW know. Sw called patient to discuss housing needs. Patient reports that the property institution director and study manager where he lives are bothdumber then dog crap. Patient reports that he does have a case manage Tyler Durflur through [facility]. Patient stateshe is no help and worthless. Sw asked patient about [employer] for help with housing support. Patient states [employer] does not do anything write. Patient states I am at an appt and will need you to call me back another time. Sw will try patient back another day. Patient called in wanting to know if the providers or clinic could help him with finding senior citizen housing/ housing, unsure if geriatric social work professor could possibly help. documented in this encounter [facility] 11-17-2024 Telephone encounter Note Sw left patient message in regards to housing and if patient has any further housing assistance needs to let this SW know. [facility] 11-15-2024 Telephone encounter Note Sw called patient to discuss housing needs. Patient reports that the property institution director and study manager where he lives are bothdumber then dog crap. Patient reports that he does have a case manage Tyler Durflur through [facility]. Patient stateshe is no help and worthless. Sw asked patient about [employer] for help with housing support. Patient states [employer] does not do anything write. Patient states I am at an appt and will need you to call me back another time. Sw will try patient back another day. [facility] 11-12-2024 Telephone encounter Note Patient called in wanting to know if the providers or clinic could help him with finding senior citizen housing/ housing, unsure if geriatric social work professor could possibly help. [facility] 07-18-2025 Telephone encounter Note Called patient. No answer- left message. Patient is asking for restrictions despite Dr. Castaneda noting no restrictions as of . Patient can schedule an appointment with a provider if new issues GI are happening or he can see his PCP. Filiberto Haley LPN [facility] 11-12-2024 Miscellaneous Notes Called patient. No answer- left message. Patient is asking for restrictions despite Dr. Castaneda noting no restrictions as of . Patient can schedule an appointment with a provider if new issues GI are happening or he can see his PCP. Filiberto Haley LPN Patient calling in with request for a letter for his landlord stating that can not walk up stairs due to hernia repair. Patient starts becoming more agitated on the phone as he explains other people have been evicted and that they are wanting evict him. Patient starts cussing at this nurse. This nurse asked the patient to please refrain from cussing at her and she understands that he is upset. Laparoscopic hernia repair was 07/27/24 No restrictions noted in Last office visit with Dr. Castaneda on 09/15/24. The following plan noted: PLAN: If the patient notes any problems or signs of wound infections, he should contact me immediately. The patient was recommended to be careful with lifting and avoid lifting heavy items that would cause him muscle strain and discomfort in the area. The hernia repair appears intact. From the standpoint of his repair he is now 8 weeks post and that he sites should be well-healed. The following plan noted from 08/11/24 visit with Victoria Jurado: PLAN: Post-op patient instructions were reviewed with the patient. I have explained to Mr. Prajapati that he may return to normal activity with the following restrictions: No heavy lifting, pushing, or pulling greater than 20 lbs for 8 weeks post-operatively. We discussed thoroughly the reason for the restrictions and he acknowledges potential adverse effects of not following the activity restrictions. I have encouraged him to contact me at any time with any questions or concerns that may arise. Patient becoming more upset when notified that no restrictions were noted. This nurse offered to send a message to Dr. Castaneda with patient request/question or sent him up with an appointment to see a provider. Patient keeps stating that he was told something different at his 09/15/24 appointment regarding incisional healing and states that he is going to contact his telemedicine physician due to feeling like he is getting inconsistent information. Due to patient raising voice at this nurse and becoming increasing agitated this nurse requested that he take a deep breath and allow her offer him the assistance that she can. The patient proceeded to yell How does it feel! I have something to say! [facility] [place] sucks! Patient hung up the phone. documented in this encounter [facility] 11-12-2024 Telephone encounter Note Letter is ready and at medical records for package pick up and patient notified Homero Carrasco [facility] 11-12-2024 Miscellaneous Notes Letter is ready and at medical records for package pick up and patient notified Homero Carrasco Letter completed Leah Shaikh APRN.CNP Patient calling in and states the Ordnance Keeper of the home he is currently residing at is trying to get him to move out of the home at the end of this month. Pt is requesting his PCP write a letter to give to the Ordnance Keeper that states that patient is not to move out/be evicted until he can find appropriate alternative housing due to his medical conditions of asthma, MARGARITO with CPAP, and arterial aneurysm near his groin awaiting vascular surgery. Pt reports he has a Clinical Admissions Manager who assists him with housing that he has been in contact with. Pt states he would like to come package pick up the letter, once it's completed, if provider agreeable to completing request. Please call patient with an update, . Abbie Davis RN documented in this encounter [facility] 11-12-2024 Telephone encounter Note Letter completed Leah Shaikh APRN.[place] [facility] 11-11-2024 Telephone encounter Note Patient calling in and states the Ordnance Keeper of the home he is currently residing at is trying to get him to move out of the home at the end of this month. Pt is requesting his PCP write a letter to give to the Ordnance Keeper that states that patient is not to move out/be evicted until he can find appropriate alternative housing due to his medical conditions of asthma, MARGARITO with CPAP, and arterial aneurysm near his groin awaiting vascular surgery. Pt reports he has a Clinical Admissions Manager who assists him with housing that he has been in contact with. Pt states he would like to come package pick up the letter, once it's completed, if provider agreeable to completing request. Please call patient with an update, . Abbie Davis RN [facility] 11-11-2024 Telephone encounter Note Patient calling in with request for a letter for his landlord stating that can not walk up stairs due to hernia repair. Patient starts becoming more agitated on the phone as he explains other people have been evicted and that they are wanting evict him. Patient starts cussing at this nurse. This nurse asked the patient to please refrain from cussing at her and she understands that he is upset. Laparoscopic hernia repair was 07/27/24 No restrictions noted in Last office visit with Dr. Castaneda on 09/15/24. The following plan noted: PLAN: If the patient notes any problems or signs of wound infections, he should contact me immediately. The patient was recommended to be careful with lifting and avoid lifting heavy items that would cause him muscle strain and discomfort in the area. The hernia repair appears intact. From the standpoint of his repair he is now 8 weeks post and that he sites should be well-healed. The following plan noted from 08/11/24 visit with Victoria Jurado: PLAN: Post-op patient instructions were reviewed with the patient. I have explained to Mr. Prajapati that he may return to normal activity with the following restrictions: No heavy lifting, pushing, or pulling greater than 20 lbs for 8 weeks post-operatively. We discussed thoroughly the reason for the restrictions and he acknowledges potential adverse effects of not following the activity restrictions. I have encouraged him to contact me at any time with any questions or concerns that may arise. Patient becoming more upset when notified that no restrictions were noted. This nurse offered to send a message to Dr. Castaneda with patient request/question or sent him up with an appointment to see a provider. Patient keeps stating that he was told something different at his 09/15/24 appointment regarding incisional healing and states that he is going to contact his telemedicine physician due to feeling like he is getting inconsistent information. Due to patient raising voice at this nurse and becoming increasing agitated this nurse requested that he take a deep breath and allow her offer him the assistance that she can. The patient proceeded to yell How does it feel! I have something to say! [facility] [place] sucks! Patient hung up the phone. [facility] 10-26-2024 Telephone encounter Note Patient notified letter written & faxed to [employer]. Promise Bernal LPN [facility] 10-26-2024 Miscellaneous Notes Patient notified letter written & faxed to [employer]. Promise Beranl LPN Patient calling and asking if provider will type a note that states that due to his medical conditions, he needs to have air conditioning. Reports that he is living with others at a residence in [place] and one other resident there has removed the air conditioning control box last night, and pt does not have air conditioning currently. Pt states there is an institution director of the home and a Ordnance Keeper also. He has contacted the institution director who said to contact Ordnance Keeper. Pt contacted Ordnance Keeper by text and has not received a reply back yet. Expresses his frustration. States he is thinking of getting an dumb waiter operator involved. Patient states he would package pick up the letter when it was completed, if provider is agreeable to completing this. Please call patient with update. [phone] Abbie Davis RN documented in this encounter [facility] 10-20-2024 Telephone encounter Note Patient calling and asking if provider will type a note that states that due to his medical conditions, he needs to have air conditioning. Reports that he is living with others at a residence in [place] and one other resident there has removed the air conditioning control box last night, and pt does not have air conditioning currently. Pt states there is an institution director of the home and a Ordnance Keeper also. He has contacted the institution director who said to contact Ordnance Keeper. Pt contacted Ordnance Keeper by text and has not received a reply back yet. Expresses his frustration. States he is thinking of getting an dumb waiter operator involved. Patient states he would package pick up the letter when it was completed, if provider is agreeable to completing this. Please call patient with update. [phone] Abbie Davis RN [facility] 10-19-2024 Note HNO ID: [id number] Author: ALISSA RACHEL, DO Service: ? Author Type: Physician Type: Progress Notes Filed: 11/16/2024 17:31 Note Text: [facility]PARTMENT OF VASCULAR SURGERY OUTPATIENT VISIT DATE October 19, 2024 OUTPATIENT VISIT TYPE CONSULTATION SERVICE DATE: 10/19/2024 SERVICE TIME: 11:33 AM PRIMARY CARE PHYSICIAN: Samir Jordan MD REFERRING PROVIDER: Leha Shaikh [address] [facility] [id number] Consult requested for an opinion regarding the evaluation and treatment of the above. My final impression and recommendations will be communicated back to the requesting physician by way of the shared medical record or letter via [place] mail. CHIEF COMPLAINT: Iliac artery aneurysm HISTORY OF PRESENT ILLNESS: Vascular consultation at the request of Dr. Leah Shaikh. A copy of this consultation note will be provided to the requesting physician by way of shared Medical record or letter to requesting physician via [place] mail. Mr. Prajapati is a 59 year old male who is seen today for left internal iliac artery aneurysm. He does report bilateral lower extremity cramping especially at night- bilateral hips and thighs. He also reports fullness noted. He is very concerned about aneurysm and he was told he had issues with circulation returning back to his heart. PAST MEDICAL HISTORY Diagnosis Date Asthma ([facility]) 1990 Chronic deep vein thrombosis (DVT) of calf muscle vein of right lower extremity ([facility]) 03/27/2023 COPD (chronic obstructive pulmonary disease) ([facility]) 2021 Coronary artery disease COVID-19 07/05/2021 EIC (epidermal inclusion cyst) 11/26/2019 Fibromyalgia 10/28/2016 Folliculitis 11/26/2019 GERD (gastroesophageal reflux disease) 01/27/2019 Hyperlipidemia 07/17/2021 Hypertension 07/17/2021 Inguinal hernia Irregular heartbeat NSTEMI (non-ST elevation myocardial infarction) ([facility]) 05/03/2020 [place], [place] MARGARITO on CPAP 2012 with nocturnal O2. Pancreatitis, chronic ([facility]) 09/07/2019 Seborrheic dermatitis 11/26/2019 Shingles outbreak 09/12/2021 Spinal stenosis, lumbar region with neurogenic claudication 11/20/2015 PAST SURGICAL HISTORY Procedure Laterality Date CC CORONARY STENT 05/04/2020 [facility] to LAD AND Circ, [facility] HERNIA REPAIR HX Right 1965 inguinal HERNIA REPAIR HX Left 1990 inguinal HERNIA REPAIR HX 07/27/2024 LAMINECTOMY,LUMBAR 11/08/2021 Dr. Cristóbal Maldonado [facility] HERNIA REPAIR W/MESH 07/27/2024 SOCIAL HISTORY: Social History Tobacco Use Smoking status: Former Current packs/day: 0.00 Average packs/day: 3.0 packs/day for 38.8 years (116.4 ttl pk-yrs) Types: Cigarettes Start date: 1981 Quit date: 05/02/2020 Years since quittin.4 Smokeless tobacco: Former Types: Snuff Quit date: 05/02/2020 Tobacco comments: Age 16-05/02/2019 Vaping Use Vaping status: Former Substance Use Topics Alcohol use: Not Currently Drug use: Never FAMILY HISTORY Adopted: Yes Family history unknown: Yes MEDICATIONS: albuterol (PROVENTIL) 2.5 mg /3 mL (0.083 %) nebulizer solution Use one vial every 4 hours as needed for wheezing/shortness of breath. Use over 5-15minutes. aspirin, enteric coated (ASPIRIN, ENTERIC COATED) 81 mg EC tablet Take 1 tablet by mouth once daily. metoprolol tartrate, short acting, (LOPRESSOR) 25 mg tablet Take 1 tablet by mouth two times a day. albuterol HFA (PROVENTIL HFA, VENTOLIN HFA) 90 mcg/actuation inhaler Inhale 2 puffs as instructed every 4 hours as needed. rivaroxaban (XARELTO) 20 mg tablet Take 1 tablet by mouth daily with dinner. lisinopril (ZESTRIL) 5 mg tablet Take 1 tablet by mouth once daily. BREZTRI AEROSPHERE 160-9-4.8 mcg/actuation HFA aerosol inhaler INHALE 2 PUFFS BY MOUTH TWICE DAILY DIRECTED fluticasone (FLONASE ALLERGY RELIEF) 50 mcg/actuation nasal spray Use 2 Sprays in each nostril once daily. montelukast (SINGULAIR) 10 mg tablet Take 1 tablet by mouth daily at bedtime. omeprazole (PRILOSEC) 40 mg capsule Take 1 capsule by mouth once daily. chlorthalidone (HYGROTON) 25 mg tablet Take 1 tablet by mouth once daily. ALLERGIES: ALLERGIES Allergen Reactions Cabbage Other: See Comments dysphagia Lettuce Other: See Comments dysphagia Onion Extract Vomiting Garlic Oil GI Upset Nut - Unspecified Anaphylaxis ALL NUTS REVIEW OF SYSTEM: Constitutional: No weight loss, malaise or fevers. HEENT: Negative for frequent or significant headaches, Negative for significant change in vision and nasal discharge or nose bleeds, Ears Positive for hearing loss Respiratory: Positive for chronic cough and shortness of breath on exertion Cardiovascular: Negative for chest pain, leg swelling or palpitations Gatrointestinal: Negative for change in bowel habit and blood in stool and Positive for abdominal discomfort and black spots in stool Genitourinary: No difficulty urination, nocturia >1 times p (more content not included)... [facility] 10-19-2024 History of Present illness Narrative Images from the original note were not included. [facility] DEPARTMENT OF VASCULAR SURGERY OUTPATIENT VISIT DATE October 19, 2024 OUTPATIENT VISIT TYPE CONSULTATION SERVICE DATE: 10/19/2024 SERVICE TIME: 11:33 AM PRIMARY CARE PHYSICIAN: Samir Jordan MD REFERRING PROVIDER: Leah Shaikh [address] [place] [id number] Consult requested for an opinion regarding the evaluation and treatment of the above. My final impression and recommendations will be communicated back to the requesting physician by way of the shared medical record or letter via [place] mail. CHIEF COMPLAINT: Iliac artery aneurysm HISTORY OF PRESENT ILLNESS: Vascular consultation at the request of Dr. Leah Shaikh. A copy of this consultation note will be provided to the requesting physician by way of shared Medical record or letter to requesting physician via [place] mail. Mr. Prajapati is a 59 year old male who is seen today for left internal iliac artery aneurysm. He does report bilateral lower extremity cramping especially at night- bilateral hips and thighs. He also reports fullness noted. He is very concerned about aneurysm and he was told he had issues with circulation returning back to his heart. PAST MEDICAL HISTORY Diagnosis Date Asthma ([facility]) 1990 Chronic deep vein thrombosis (DVT) of calf muscle vein of right lower extremity ([facility]) 03/27/2023 COPD (chronic obstructive pulmonary disease) ([facility]) 2021 Coronary artery disease COVID-19 07/05/2021 EIC (epidermal inclusion cyst) 11/26/2019 Fibromyalgia 10/28/2016 Folliculitis 11/26/2019 GERD (gastroesophageal reflux disease) 01/27/2019 Hyperlipidemia 07/17/2021 Hypertension 07/17/2021 Inguinal hernia Irregular heartbeat NSTEMI (non-ST elevation myocardial infarction) ([facility]) 05/03/2020 [place], [place] MARGARITO on CPAP 2012 with nocturnal O2. Pancreatitis, chronic ([facility]) 09/07/2019 Seborrheic dermatitis 11/26/2019 Shingles outbreak 09/12/2021 Spinal stenosis, lumbar region with neurogenic claudication 11/20/2015 PAST SURGICAL HISTORY Procedure Laterality Date CC CORONARY STENT 05/04/2020 [facility] to LAD & Circ, [facility] HERNIA REPAIR HX Right 1964 inguinal HERNIA REPAIR HX Left 1990 inguinal HERNIA REPAIR HX 07/27/2024 LAMINECTOMY,LUMBAR 11/08/2021 Dr. Cristóbal Maldonado [facility] HERNIA REPAIR W/MESH 07/27/2024 SOCIAL HISTORY: Social History Tobacco Use Smoking status: Former Current packs/day: 0.00 Average packs/day: 3.0 packs/day for 38.8 years (116.4 ttl pk-yrs) Types: Cigarettes Start date: 1981 Quit date: 05/02/2020 Years since quittin.4 Smokeless tobacco: Former Types: Snuff Quit date: 05/02/2020 Tobacco comments: Age 16-05/02/2019 Vaping Use Vaping status: Former Substance Use Topics Alcohol use: Not Currently Drug use: Never FAMILY HISTORY Adopted: Yes Family history unknown: Yes MEDICATIONS: albuterol (PROVENTIL) 2.5 mg /3 mL (0.083 %) nebulizer solution Use one vial every 4 hours as needed for wheezing/shortness of breath. Use over 5-15minutes. aspirin, enteric coated (ASPIRIN, ENTERIC COATED) 81 mg EC tablet Take 1 tablet by mouth once daily. metoprolol tartrate, short acting, (LOPRESSOR) 25 mg tablet Take 1 tablet by mouth two times a day. albuterol HFA (PROVENTIL HFA, VENTOLIN HFA) 90 mcg/actuation inhaler Inhale 2 puffs as instructed every 4 hours as needed. rivaroxaban (XARELTO) 20 mg tablet Take 1 tablet by mouth daily with dinner. lisinopril (ZESTRIL) 5 mg tablet Take 1 tablet by mouth once daily. BREZTRI AEROSPHERE 160-9-4.8 mcg/actuation HFA aerosol inhaler INHALE 2 PUFFS BY MOUTH TWICE DAILY DIRECTED fluticasone (FLONASE ALLERGY RELIEF) 50 mcg/actuation nasal spray Use 2 Sprays in each nostril once daily. montelukast (SINGULAIR) 10 mg tablet Take 1 tablet by mouth daily at bedtime. omeprazole (PRILOSEC) 40 mg capsule Take 1 capsule by mouth once daily. chlorthalidone (HYGROTON) 25 mg tablet Take 1 tablet by mouth once daily. ALLERGIES: ALLERGIES Allergen Reactions Cabbage Other: See Comments dysphagia Lettuce Other: See Comments dysphagia Onion Extract Vomiting Garlic Oil GI Upset Nut - Unspecified Anaphylaxis ALL NUTS REVIEW OF SYSTEM: Constitutional: No weight loss, malaise or fevers. HEENT: Negative for frequent or significant headaches, Negative for significant change in vision and nasal discharge or nose bleeds, Ears Positive for hearing loss Respiratory: Positive for chronic cough and shortness of breath on exertion Cardiovascular: Negative for chest pain, leg swelling or palpitations Gatrointestinal: Negative for change in bowel habit and blood in stool and Positive for abdominal discomfort and black spots in stool Genitourinary: No difficulty urination, nocturia >1 times per night or hematuria Musculoskeletal: Positive for back pain Endocrine: Positive for cold intolerance and heat intolerance Hematology/Lymphatic: Positive for bruises easily Neurologic: No history or headaches, syncope, paralysis, seizures or tremors Integumentary: Negative for lesions, rash, and itching. PHYSICAL EXAM: VITALS: There were no vitals taken for this visit. General: Alert and oriented Integumentary: Normal color, no rash, no lesions. HEENT: EOM, pupils equal, round and reactive. Cardiovascular: Pulse regular. Lungs: No chest deformities or chest wall tenderness. Abdomen: Soft, non-tender, no rigidity. Extremities: No deformity, no edema or tenderness, no joint swelling or clubbing. Varicose veins Neurological: Normal cognition and motor skills. Vascular: Dorsalis Pedal Right: Normal - Left: Normal Diagnostic tests reviewed for today's visit: Most recent labs Most recent imaging IMPRESSION: Mr. Prajapati is a 59 year old male with symptomatic varicose veins, iliac artery aneurysm . PLAN and RECOMMENDATIONS: Will get venous reflux testing and aortic duplex Recommend continue use of compression, elevation and exercise Continue current medications including blood pressure and cholesterol control Follow up after testing SIGNATURE: Alissa Rachel DO PATIENT NAME: Shawna Prajapati DATE: October 19, 2024 TIME: 11:33 AM documented in this encounter [facility] 10-12-2024 Telephone encounter Note The patient has been identified by name and date of : Yes Caregiver verified no other encounters exist for this prescription request: Yes Caregiver confirmed with patient/requestor that no other refills are due, in the near future, with this provider at this time: Yes The last office visit in the department: 10/01/2024 Does the patient have a future office visit with this provider/department: Yes 04/04/2025 Requested Prescriptions Pending Prescriptions Disp Refills albuterol (PROVENTIL) 2.5 mg /3 mL (0.083 %) nebulizer solution 60 mL 5 Sig: Use one vial every 4 hours as needed for wheezing/shortness of breath. Use over 5-15minutes. aspirin, enteric coated (ASPIRIN, ENTERIC COATED) 81 mg EC tablet 30 tablet 5 Sig: Take 1 tablet by mouth once daily. metoprolol tartrate, short acting, (LOPRESSOR) 25 mg tablet 60 tablet 5 Sig: Take 1 tablet by mouth two times a day. Abbie Davis RN [facility] 10-12-2024 Miscellaneous Notes The patient has been identified by name and date of : Yes Caregiver verified no other encounters exist for this prescription request: Yes Caregiver confirmed with patient/requestor that no other refills are due, in the near future, with this provider at this time: Yes The last office visit in the department: 10/01/2024 Does the patient have a future office visit with this provider/department: Yes 04/04/2025 Requested Prescriptions Pending Prescriptions Disp Refills albuterol (PROVENTIL) 2.5 mg /3 mL (0.083 %) nebulizer solution 60 mL 5 Sig: Use one vial every 4 hours as needed for wheezing/shortness of breath. Use over 5-15minutes. aspirin, enteric coated (ASPIRIN, ENTERIC COATED) 81 mg EC tablet 30 tablet 5 Sig: Take 1 tablet by mouth once daily. metoprolol tartrate, short acting, (LOPRESSOR) 25 mg tablet 60 tablet 5 Sig: Take 1 tablet by mouth two times a day. Abbie Davis RN documented in this encounter [facility] 10-07-2024 Note HNO ID: [id number] Author: ?, ?, ? Service: ? Author Type: ? Type: Progress Notes Filed: 10/07/2024 15:21 Note Text: PT left regarding results. Returned call and let patient know that the results have been released to his mychart. PT mentioned he is not actively using myc for other reasons so he was advised to contact the ordering MD to discuss further details/results. [facility] 10-01-2024 Note HNO ID: [id number] Author: LEAH SHAIKH APRN.[employer]SIST[employer]ER TEACHER Service: ? Author Type: Nurse Practitioner Type: Progress Notes Filed: 10/01/2024 14:07 Note Text: CC: Patient presents with: Follow Up: 4 weeks BP HPI Recording using [employer] software for draft documentation of the visit was discussed with the patient/authorized patient portal representative; all questions welcomed and answered. Patient/authorized patient portal representative agreed to proceed Shawna Prajapati is a 59-year-old male with a history of HTN, asthma, and an arterial aneurysm, presenting for a blood pressure follow-up. Shawna reports confusion regarding his current medical management and expresses frustration with the coordination of his care. He mentions a recent CT scan of his abdomen, which was performed in the context of a hernia operation by Dr. Rai. The scan revealed an arterial aneurysm near his groin, described as a lump. He was informed that the condition could be managed with stent placement to improve blood flow. He has not yet been scheduled with vascular surgeon as recommended and would like assistance to facilitate appointment Shawna is currently taking lisinopril 5 mg daily for blood pressure control, which was recently adjusted from a higher dose due to episodes of hypotension. He reports that his blood pressure has been stable since the adjustment. He is also using Breztri inhaler, 2 puffs twice daily, as a maintenance medication for asthma. He has been using his albuterol inhaler more frequently than prescribed, taking 2 puffs in the morning and 2 in the afternoon because he thought he was instructed to take this way. He requests a refill for his albuterol inhaler. Review of Systems See HPI PAST MEDICAL HISTORY Diagnosis Date Asthma ([facility]) 1990 Chronic deep vein thrombosis (DVT) of calf muscle vein of right lower extremity ([facility]) 03/27/2023 COPD (chronic obstructive pulmonary disease) ([facility]) 2021 Coronary artery disease COVID-19 07/05/2021 EIC (epidermal inclusion cyst) 11/26/2019 Fibromyalgia 10/28/2016 Folliculitis 11/26/2019 GERD (gastroesophageal reflux disease) 01/27/2019 Hyperlipidemia 07/17/2021 Hypertension 07/17/2021 Inguinal hernia Irregular heartbeat NSTEMI (non-ST elevation myocardial infarction) ([facility]) 05/03/2020 [place], [place] MARGARITO on CPAP 2012 with nocturnal O2. Pancreatitis, chronic ([facility]) 09/07/2019 Seborrheic dermatitis 11/26/2019 Shingles outbreak 09/12/2021 Spinal stenosis, lumbar region with neurogenic claudication 11/20/2015 PAST SURGICAL HISTORY Procedure Laterality Date CC CORONARY STENT 05/04/2020 [facility] to LAD AND Circ, [facility] HERNIA REPAIR HX Right 1964 inguinal HERNIA REPAIR HX Left 1990 inguinal HERNIA REPAIR HX 07/27/2024 LAMINECTOMY,LUMBAR 11/08/2021 Dr. Cristóbal Maldonado LAP HERNIA REPAIR W/MESH 07/27/2024 ALLERGIES Cabbage, Lettuce, Onion Extract, Garlic Oil, and Nut - Unspecified MEDICATIONS rivaroxaban (XARELTO) 20 mg tablet Take 1 tablet by mouth daily with dinner. lisinopril (ZESTRIL) 5 mg tablet Take 1 tablet by mouth once daily. BREZTRI AEROSPHERE 160-9-4.8 mcg/actuation HFA aerosol inhaler INHALE 2 PUFFS BY MOUTH TWICE DAILY DIRECTED fluticasone (FLONASE ALLERGY RELIEF) 50 mcg/actuation nasal spray Use 2 Sprays in each nostril once daily. montelukast (SINGULAIR) 10 mg tablet Take 1 tablet by mouth daily at bedtime. omeprazole (PRILOSEC) 40 mg capsule Take 1 capsule by mouth once daily. aspirin, enteric coated (ASPIRIN, ENTERIC COATED) 81 mg EC tablet Take 1 tablet by mouth once daily. metoprolol tartrate, short acting, (LOPRESSOR) 25 mg tablet Take 1 tablet by mouth two times a day. albuterol (PROVENTIL) 2.5 mg /3 mL (0.083 %) nebulizer solution Use one vial every 4 hours as needed for wheezing/shortness of breath. Use over 5-15minutes. chlorthalidone (HYGROTON) 25 mg tablet Take 1 tablet by mouth once daily. albuterol HFA (PROVENTIL HFA, VENTOLIN HFA) 90 mcg/actuation inhaler Inhale 2 puffs as instructed every 4 hours as needed. FAMILY HISTORY Adopted: Yes Family history unknown: Yes Social History Tobacco Use Smoking status: Former Current packs/day: 0.00 Average packs/day: 3.0 packs/day for 38.8 years (116.4 ttl pk-yrs) Types: Cigarettes Start date: 1981 Quit date: 05/02/2020 Years since quittin.4 Smokeless tobacco: Former Types: Snuff Quit date: 05/02/2020 Tobacco comments: Age 16-05/02/2019 Vaping Use Vaping status: Former Substance Use Topics Alcohol use: Not Currently Drug use: Never BP 122/78 Pulse 94 Resp 12 Wt 91.7 kg (202 lb 2.6 oz) SpO2 98% BMI 31.66 kg/m? Physical Exam Vitals reviewed. Constitutional: Appearance: Normal appearance. Neurological: Mental Status: He is alert. Assessment/Plan 1. Primary hypertension (I10) Blood pressure is well-controlled at 122/78 mmHg on current regimen of Lisinopril 5 mg daily. - Co (more content not included)... [facility] 10-01-2024 History of Present illness Narrative CC: Patient presents with: Follow Up: 4 weeks BP HPI Recording using [employer] software for draft documentation of the visit was discussed with the patient/authorized patient portal representative; all questions welcomed and answered. Patient/authorized patient portal representative agreed to proceed Shawna Prajapati is a 59-year-old male with a history of HTN, asthma, and an arterial aneurysm, presenting for a blood pressure follow-up. Shawna reports confusion regarding his current medical management and expresses frustration with the coordination of his care. He mentions a recent CT scan of his abdomen, which was performed in the context of a hernia operation by Dr. Rai. The scan revealed an arterial aneurysm near his groin, described as a lump. He was informed that the condition could be managed with stent placement to improve blood flow. He has not yet been scheduled with vascular surgeon as recommended and would like assistance to facilitate appointment Shawna is currently taking lisinopril 5 mg daily for blood pressure control, which was recently adjusted from a higher dose due to episodes of hypotension. He reports that his blood pressure has been stable since the adjustment. He is also using Breztri inhaler, 2 puffs twice daily, as a maintenance medication for asthma. He has been using his albuterol inhaler more frequently than prescribed, taking 2 puffs in the morning and 2 in the afternoon because he thought he was instructed to take this way. He requests a refill for his albuterol inhaler. Review of Systems See HPI PAST MEDICAL HISTORY Diagnosis Date Asthma ([facility]) 1990 Chronic deep vein thrombosis (DVT) of calf muscle vein of right lower extremity ([facility]) 03/27/2023 COPD (chronic obstructive pulmonary disease) ([facility]) 2021 Coronary artery disease COVID-19 07/05/2021 EIC (epidermal inclusion cyst) 11/26/2019 Fibromyalgia 10/28/2016 Folliculitis 11/26/2019 GERD (gastroesophageal reflux disease) 01/27/2019 Hyperlipidemia 07/17/2021 Hypertension 07/17/2021 Inguinal hernia Irregular heartbeat NSTEMI (non-ST elevation myocardial infarction) ([facility]) 05/03/2020 [place], [place] MARGARITO on CPAP 2012 with nocturnal O2. Pancreatitis, chronic ([facility]) 09/07/2019 Seborrheic dermatitis 11/26/2019 Shingles outbreak 09/12/2021 Spinal stenosis, lumbar region with neurogenic claudication 11/20/2015 PAST SURGICAL HISTORY Procedure Laterality Date CC CORONARY STENT 05/04/2020 [facility] to LAD & Circ, [facility] HERNIA REPAIR HX Right 1964 inguinal HERNIA REPAIR HX Left 1990 inguinal HERNIA REPAIR HX 07/27/2024 LAMINECTOMY,LUMBAR 11/08/2021 Dr. Cristóbal Maldonado LAP HERNIA REPAIR W/MESH 07/27/2024 ALLERGIES Cabbage, Lettuce, Onion Extract, Garlic Oil, and Nut - Unspecified MEDICATIONS rivaroxaban (XARELTO) 20 mg tablet Take 1 tablet by mouth daily with dinner. lisinopril (ZESTRIL) 5 mg tablet Take 1 tablet by mouth once daily. BREZTRI AEROSPHERE 160-9-4.8 mcg/actuation HFA aerosol inhaler INHALE 2 PUFFS BY MOUTH TWICE DAILY DIRECTED fluticasone (FLONASE ALLERGY RELIEF) 50 mcg/actuation nasal spray Use 2 Sprays in each nostril once daily. montelukast (SINGULAIR) 10 mg tablet Take 1 tablet by mouth daily at bedtime. omeprazole (PRILOSEC) 40 mg capsule Take 1 capsule by mouth once daily. aspirin, enteric coated (ASPIRIN, ENTERIC COATED) 81 mg EC tablet Take 1 tablet by mouth once daily. metoprolol tartrate, short acting, (LOPRESSOR) 25 mg tablet Take 1 tablet by mouth two times a day. albuterol (PROVENTIL) 2.5 mg /3 mL (0.083 %) nebulizer solution Use one vial every 4 hours as needed for wheezing/shortness of breath. Use over 5-15minutes. chlorthalidone (HYGROTON) 25 mg tablet Take 1 tablet by mouth once daily. albuterol HFA (PROVENTIL HFA, VENTOLIN HFA) 90 mcg/actuation inhaler Inhale 2 puffs as instructed every 4 hours as needed. FAMILY HISTORY Adopted: Yes Family history unknown: Yes Social History Tobacco Use Smoking status: Former Current packs/day: 0.00 Average packs/day: 3.0 packs/day for 38.8 years (116.4 ttl pk-yrs) Types: Cigarettes Start date: 1981 Quit date: 05/02/2020 Years since quittin.4 Smokeless tobacco: Former Types: Snuff Quit date: 05/02/2020 Tobacco comments: Age 16-05/02/2019 Vaping Use Vaping status: Former Substance Use Topics Alcohol use: Not Currently Drug use: Never BP 122/78 Pulse 94 Resp 12 Wt 91.7 kg (202 lb 2.6 oz) SpO2 98% BMI 31.66 kg/m Physical Exam Vitals reviewed. Constitutional: Appearance: Normal appearance. Neurological: Mental Status: He is alert. Assessment/Plan 1. Primary hypertension (I10) Blood pressure is well-controlled at 122/78 mmHg on current regimen of Lisinopril 5 mg daily. - Continue Lisinopril 5 mg daily. - Follow-up in 6 months for routine evaluation. 2. Iliac artery aneurysm, left (I72.3) Confirmed via previous imaging studies. - Referral to vascular surgery for further management. - Patient to schedule appointment with vascular surgery. 3. Chronic obstructive pulmonary disease, unspecified COPD type (HCC) (J44.9) Currently managed with Breztri and albuterol inhalers. Patient was using albuterol more frequently than prescribed. - Educated patient on proper use of inhalers: Breztri 2 puffs BID as maintenance, albuterol as needed for acute symptoms. - Refilled albuterol inhaler prescription. - Monitor for symptom control; if using more than one albuterol inhaler per month, reassess management. Prescription instructions reviewed with patient as applicable. Potential red flag symptoms discussed with the patient. Reviewed appropriate action plan to take if red flag symptoms occur. Patient agreeable to treatment plan. Leah Shaikh APRN.ASSISTANT TODDLER TEACHER documented in this encounter [facility] 10-01-2024 Instructions Leah Shaikh APRN.[place] - 10/01/2024 1:03 PM EDT We discussed your blood pressure: - Your blood pressure today was 122/78, which is excellent. - Continue taking Lisinopril 5 mg daily as prescribed. This dosage appears to be working well for you. We discussed your asthma and inhaler use: - Continue using Breztri, 2 puffs twice daily, as your maintenance inhaler. This helps prevent asthma symptoms and reduces the need for your rescue inhaler. - Use Albuterol only as needed for emergencies, such as shortness of breath or chest tightness. If you find you are using more than one Albuterol inhaler per month, please let us know, as this may indicate your asthma is not well controlled. - Refills for Albuterol have been sent to your preferred pharmacy, [facility]. We discussed your artery aneurysm: - I will send a referral to a vascular specialist to evaluate and address the artery aneurysm near your groin. - Please stop at the front edger to schedule this appointment. Follow-up: - We will see you back in 6 months for a routine follow-up. - If you have any concerns or changes in your symptoms before then, please contact our office. documented in this encounter [facility] 09-15-2024 Note HNO ID: [id number] Author: MICHELLE CASTANEDA MD Service: ? Author Type: Physician Type: Progress Notes Filed: 09/16/2024 08:34 Note Text: FOLLOW UP VISIT - POST OP NAME: Shawna Ochoa [facility] NO.: [id number] DATE OF SERVICE: 09/15/2024 : 1965 REFERRING PHYSICIAN: Samir Jordan MD Shawna is a patient I am following for a ventral hernia. He most recently presented to [facility] emergency department with complaint of worsening abdominal pain on May 31, 2024. He was noted to be on Xarelto at that time. On exam he was noted to be tender in the mid abdominal region. CT scan of the abdomen pelvis demonstrated a 2.6 cm left iliac aneurysm was felt to be a fat-containing inguinal hernia but no ventral hernia. It was recommended he follow-up with vascular surgery for his iliac aneurysm. I initially seen Shawna when he was a 56 year old male with a complaint of a bulge and discomfort in his mid abdomen. The patient notes discomfort in this area with pressing on the supraumbilical area. The symptoms have increased, over the past 3 months. The patient notes no symptoms of bowel obstruction and denies nausea or vomiting. The patient was seen by his primary care physician who felt the patient has a hernia. Shawna was referred for evaluation and treatment. On evaluation I suspect that he had a supraumbilical hernia but got approved so. I was also concerned given his past history that he could have a degree of cirrhosis and/or ascites. I obtained a CT scan of the abdomen pelvis. This was obtained on July 15, 2022. This demonstrated: IMPRESSION: 1. Small supraumbilical hernia with haziness of the fat suggesting some degree of inflammation. 2. 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 Suggest nonemergent vascular consult. 3. Hepatic steatosis. Patient has a history of asthma COPD. Spirometry notes an FVC of 69% predicted and an FEV1 of 37% predicted with an FEV1 of 1.43 L. He notes a history of myocardial infarction 2020 with stent placement and is currently on Plavix. He states his professor of psychology was Dr. Hanson in [place] but has not seen him for some time and needs to establish with cardiology locally. Did obtain records from Dr. Hanson's office. We received a reply that the patient did not follow-up with Dr. Hanson after his initial stent placement in 2000. Upon further discussion with the patient today he states he has not seen a professor of psychology since discharge from the hospital for stent placement after his myocardial infarction The patient is being seen by me at the request of Dr. Samir Jordan MD for my opinion and advice regarding ventral hernia. He did establish with the [facility] heart group. He had an echocardiogram in December 15, 2022. This demonstrated a 55 to 6% ejection fraction and otherwise no specific abnormalities. I performed a laparoscopic ventral hernia repair in conjunction with Carin Bueno on July 27, 2024. An 8.6 cm [place] mesh was placed for the repair. The patient had initial follow-up with Filiberto Jurado on August 11, 2024. He had no complaints at that time. The patient currently notes that he is having a pulling sensation in his upper abdomen. He made the appointment due to this discomfort. He had been lifting things which were relatively heavy. He states overall he feels better in the past few days. This actually is in his upper abdomen and subcostal area not at the site of his hernia repair. his appetite has been good. VITALS: Blood pressure 102/62, pulse 68, temperature 36.4 ?C (97.5 ?F), temperature source Temporal, resp. rate 16, height 170.2 cm (5' 7), weight 91.6 kg (202 lb), SpO2 97%. On examination, the hernia site is well-healed with no signs of recurrence Assessment IMPRESSION: Status post laparoscopic umbilical hernia repair reinforced with mesh. No signs of recurrent hernia PLAN: If the patient notes any problems or signs of wound infections, he should contact me immediately. The patient was recommended to be careful with lifting and avoid lifting heavy items that would cause him muscle strain and discomfort in the area. The hernia repair appears intact. From the standpoint of his repair he is now 8 weeks post and that he sites should be well-healed. Diagnoses: (K43.7) Ventral hernia with gangrene (primary encounter diagnosis) Return to Clinic: The patient is instructed to follow-up with me as needed. Michelle Castaneda MD [facility] 09-14-2024 Telephone encounter Note Please tell pt his home sleep test confirms he has obstructive sleep apnea. Because his oxygen was low throughout the study, I recommend we now do a PAP titration study in a sleep lab. Then we will know what PAP pressure he needs and if we need to add oxygen to his PAP (he had PAP with O2 before). I would like to send him to a [facility] lab, preferably [place], or even [facility]--would he be able to go to one of those? Ольга Hughes APRN.CNP [facility] Work Phone: 09-14-2024 Miscellaneous Notes Please tell pt his home sleep test confirms he has obstructive sleep apnea. Because his oxygen was low throughout the study, I recommend we now do a PAP titration study in a sleep lab. Then we will know what PAP pressure he needs and if we need to add oxygen to his PAP (he had PAP with O2 before). I would like to send him to a [facility] lab, preferably [place], or even [facility]--would he be able to go to one of those? Ольга Hughes APRN.CNP documented in this encounter [facility] 09-09-2024 Note HNO ID: [id number] Author: ?, ?, ? Service: ? Author Type: ? Type: Progress Notes Filed: 09/09/2024 09:23 Note Text: Sleep Study Check-In Documentation Date: September 09, 2024 Name: Shawna Prajapati Comments: HST was returned in working order without all sleep questionnaires Patient was not reached. A voicemail was left with patient to call back to complete questionnaires. Willi Simon [facility] 09-09-2024 History of Present illness Narrative Sleep Study Check-In Documentation Date: September 09, 2024 Name: Shawna Prajapati Comments: HST was returned in working order without all sleep questionnaires Patient was not reached. A voicemail was left with patient to call back to complete questionnaires. Willi Simon [facility] # [id number] , date shipped out 09-06-24 FED EX ONLY Tracking mailout: [id number] Tracking return: [id number] documented in this encounter [facility] 09-07-2024 Telephone encounter Note Patient notified Homero Carrasco MA [facility] 09-07-2024 Miscellaneous Notes Patient notified Homero Carrasco MA The following approved medication requests have been transmitted electronically. Requested Prescriptions Signed Prescriptions Disp Refills rivaroxaban (XARELTO) 20 mg tablet 30 tablet 5 Sig: Take 1 tablet by mouth daily with dinner. Authorizing Provider: SAMIR JORDAN MD The patient has been identified by name and date of : Yes Caregiver verified no other encounters exist for this prescription request: Yes Caregiver confirmed with patient/requestor that no other refills are due, in the near future, with this provider at this time: Yes The last office visit in the department: 09/03/2024 Does the patient have a future office visit with this provider/department: Yes 10/01/2024 Requested Prescriptions Pending Prescriptions Disp Refills rivaroxaban (XARELTO) 20 mg tablet Sig: Take 1 tablet by mouth daily with dinner. Rx was not sent to him by [facility], needs new rx. Patient would like called when rx is sent to the pharmacy. Hiram Hair LPN September 07, 2024 12:38 PM documented in this encounter [facility] 09-07-2024 Telephone encounter Note The following approved medication requests have been transmitted electronically. Requested Prescriptions Signed Prescriptions Disp Refills rivaroxaban (XARELTO) 20 mg tablet 30 tablet 5 Sig: Take 1 tablet by mouth daily with dinner. Authorizing Provider: SAMIR JORDAN MD [facility] 09-07-2024 Telephone encounter Note The patient has been identified by name and date of : Yes Caregiver verified no other encounters exist for this prescription request: Yes Caregiver confirmed with patient/requestor that no other refills are due, in the near future, with this provider at this time: Yes The last office visit in the department: 09/03/2024 Does the patient have a future office visit with this provider/department: Yes 10/01/2024 Requested Prescriptions Pending Prescriptions Disp Refills rivaroxaban (XARELTO) 20 mg tablet Sig: Take 1 tablet by mouth daily with dinner. Rx was not sent to him by [facility], needs new rx. Patient would like called when rx is sent to the pharmacy. Hiram Hair LPN September 07, 2024 12:38 PM [facility] 09-03-2024 Note HNO ID: [id number] Author: ?, ?, ? Service: ? Author Type: ? Type: Progress Notes Filed: 09/09/2024 09:23 Note Text: [facility] # [id number] , date shipped out 09-06-24 FED EX ONLY Tracking mailout: [id number] Tracking return: [id number] [facility] 09-03-2024 Note HNO ID: [id number] Author: LEAH SHAIKH APRN.BARRINGTON Service: ? Author Type: Nurse Practitioner Type: Progress Notes Filed: 09/03/2024 13:33 Note Text: CC: Patient presents with: Abdominal Pain HPI Recording using [employer] software for draft documentation of the visit was discussed with the patient/authorized patient portal representative; all questions welcomed and answered. Patient/authorized patient portal representative agreed to proceed Shawna is a 59-year-old male with a history of asthma, COPD, and inguinal hernia, presenting for follow-up on abdominal pain. He was seen for this five days ago. Upper abdominal pain was an 8 out of 10 but not accompanied by any other symptoms including GI or . He recently had a ventral hernia repair last month but no pain in the surgical area. He also mentioned similar symptoms with a previous [place], EKG showed incomplete RBBB but otherwise no evidence of ischemia. He was advised to go to the ER due to severe pain however he declined. He was worked up outpatient with chest x-ray and labs which were unremarkable. Today Shawna reports persistent sharp abdominal pain, which has slightly improved but is not yet resolved. He denies new symptoms and has not experienced chest pain or worsening dyspnea, attributing any shortness of breath to his asthma. He denies heartburn, reflux, indigestion, or nausea when eating. He has a history of GERD and is taking Prilosec 40 mg daily. His BP had been chronically low and he reported symptoms of lightheadedness and fatigue, Lisinopril was decreased to 5 mg daily. He was unable to break the 10 mg tablets in half and has not taken the Lisinopril. He reports feeling less dizzy and less like he is going to pass out since stopping the medication. His blood pressure today is 116/86, an improvement from 100/66 last week. Review of Systems See HPI PAST MEDICAL HISTORY Diagnosis Date Asthma ([facility]) 1990 Chronic deep vein thrombosis (DVT) of calf muscle vein of right lower extremity ([facility]) 03/27/2023 COPD (chronic obstructive pulmonary disease) ([facility]) 2021 Coronary artery disease COVID-19 07/05/2021 EIC (epidermal inclusion cyst) 11/26/2019 Fibromyalgia 10/28/2016 Folliculitis 11/26/2019 GERD (gastroesophageal reflux disease) 01/27/2019 Hyperlipidemia 07/17/2021 Hypertension 07/17/2021 Inguinal hernia Irregular heartbeat NSTEMI (non-ST elevation myocardial infarction) ([facility]) 05/03/2020 [place], [place] MARGARITO on CPAP 2012 with nocturnal O2. Pancreatitis, chronic ([facility]) 09/07/2019 Seborrheic dermatitis 11/26/2019 Shingles outbreak 09/12/2021 Spinal stenosis, lumbar region with neurogenic claudication 11/20/2015 PAST SURGICAL HISTORY Procedure Laterality Date CC CORONARY STENT 05/04/2020 [facility]NOLD to LAD AND Circ, [facility] HERNIA REPAIR HX Right 1964 inguinal HERNIA REPAIR HX Left 1990 inguinal HERNIA REPAIR HX 07/27/2024 LAMINECTOMY,LUMBAR 11/08/2021 Dr. Cristóbal Maldonado LAP HERNIA REPAIR W/MESH 07/27/2024 ALLERGIES Cabbage, Lettuce, Onion Extract, Garlic Oil, and Nut - Unspecified MEDICATIONS lisinopril (ZESTRIL) 5 mg tablet Take 1 tablet by mouth once daily. BREZTRI AEROSPHERE 160-9-4.8 mcg/actuation HFA aerosol inhaler INHALE 2 PUFFS BY MOUTH TWICE DAILY DIRECTED rivaroxaban (XARELTO) 20 mg tablet Take 20 mg by mouth daily with dinner. fluticasone (FLONASE ALLERGY RELIEF) 50 mcg/actuation nasal spray Use 2 Sprays in each nostril once daily. albuterol HFA (PROVENTIL HFA, VENTOLIN HFA) 90 mcg/actuation inhaler Inhale 2 Puffs as instructed every 4 hours as needed. montelukast (SINGULAIR) 10 mg tablet Take 1 tablet by mouth daily at bedtime. omeprazole (PRILOSEC) 40 mg capsule Take 1 capsule by mouth once daily. aspirin, enteric coated (ASPIRIN, ENTERIC COATED) 81 mg EC tablet Take 1 tablet by mouth once daily. metoprolol tartrate, short acting, (LOPRESSOR) 25 mg tablet Take 1 tablet by mouth two times a day. albuterol (PROVENTIL) 2.5 mg /3 mL (0.083 %) nebulizer solution Use one vial every 4 hours as needed for wheezing/shortness of breath. Use over 5-15minutes. albuterol HFA (PROVENTIL HFA, VENTOLIN HFA) 90 mcg/actuation inhaler Inhale 2 Puffs as instructed every 4 hours as needed for wheezing/shortness of breath. chlorthalidone (HYGROTON) 25 mg tablet Take 1 tablet by mouth once daily. FAMILY HISTORY Adopted: Yes Family history unknown: Yes Social History Tobacco Use Smoking status: Former Current packs/day: 0.00 Average packs/day: 3.0 packs/day for 38.8 years (116.4 ttl pk-yrs) Types: Cigarettes Start date: 1981 Quit date: 05/02/2020 Years since quittin.3 Smokeless tobacco: Former Types: Snuff Quit date: 05/02/2020 Tobacco comments: Age 16-05/02/2019 Vaping Use Vaping status: Former Substance Use Topics Alcohol use: Not Currently Drug use: Never BP 116/86 Pulse (!) 58 Resp 14 Wt 90.6 kg (199 lb 11.8 oz) SpO2 99% BMI 3 (more content not included)... [facility] 09-03-2024 History of Present illness Narrative CC: Patient presents with: Abdominal Pain HPI Recording using [employer] software for draft documentation of the visit was discussed with the patient/authorized patient portal representative; all questions welcomed and answered. Patient/authorized patient portal representative agreed to proceed Shawna is a 59-year-old male with a history of asthma, COPD, and inguinal hernia, presenting for follow-up on abdominal pain. He was seen for this five days ago. Upper abdominal pain was an 8 out of 10 but not accompanied by any other symptoms including GI or . He recently had a ventral hernia repair last month but no pain in the surgical area. He also mentioned similar symptoms with a previous [place], EKG showed incomplete RBBB but otherwise no evidence of ischemia. He was advised to go to the ER due to severe pain however he declined. He was worked up outpatient with chest x-ray and labs which were unremarkable. Today Shawna reports persistent sharp abdominal pain, which has slightly improved but is not yet resolved. He denies new symptoms and has not experienced chest pain or worsening dyspnea, attributing any shortness of breath to his asthma. He denies heartburn, reflux, indigestion, or nausea when eating. He has a history of GERD and is taking Prilosec 40 mg daily. His BP had been chronically low and he reported symptoms of lightheadedness and fatigue, Lisinopril was decreased to 5 mg daily. He was unable to break the 10 mg tablets in half and has not taken the Lisinopril. He reports feeling less dizzy and less like he is going to pass out since stopping the medication. His blood pressure today is 116/86, an improvement from 100/66 last week. Review of Systems See HPI PAST MEDICAL HISTORY Diagnosis Date Asthma ([facility]) 1990 Chronic deep vein thrombosis (DVT) of calf muscle vein of right lower extremity ([facility]) 03/27/2023 COPD (chronic obstructive pulmonary disease) ([facility]) 2021 Coronary artery disease COVID-19 07/05/2021 EIC (epidermal inclusion cyst) 11/26/2019 Fibromyalgia 10/28/2016 Folliculitis 11/26/2019 GERD (gastroesophageal reflux disease) 01/27/2019 Hyperlipidemia 07/17/2021 Hypertension 07/17/2021 Inguinal hernia Irregular heartbeat NSTEMI (non-ST elevation myocardial infarction) ([facility]) 05/03/2020 [place], [place] on CPAP 2012 with nocturnal O2. Pancreatitis, chronic ([facility]) 09/07/2019 Seborrheic dermatitis 11/26/2019 Shingles outbreak 09/12/2021 Spinal stenosis, lumbar region with neurogenic claudication 11/20/2015 PAST SURGICAL HISTORY Procedure Laterality Date CC CORONARY STENT 05/04/2020 [facility]NOLD to LAD & Circ, [facility] HERNIA REPAIR HX Right 1964 inguinal HERNIA REPAIR HX Left 1990 inguinal HERNIA REPAIR HX 07/27/2024 LAMINECTOMY,LUMBAR 11/08/2021 Dr. Cristóbal Maldonado LAP HERNIA REPAIR W/MESH 07/27/2024 ALLERGIES Cabbage, Lettuce, Onion Extract, Garlic Oil, and Nut - Unspecified MEDICATIONS lisinopril (ZESTRIL) 5 mg tablet Take 1 tablet by mouth once daily. BREZTRI AEROSPHERE 160-9-4.8 mcg/actuation HFA aerosol inhaler INHALE 2 PUFFS BY MOUTH TWICE DAILY DIRECTED rivaroxaban (XARELTO) 20 mg tablet Take 20 mg by mouth daily with dinner. fluticasone (FLONASE ALLERGY RELIEF) 50 mcg/actuation nasal spray Use 2 Sprays in each nostril once daily. albuterol HFA (PROVENTIL HFA, VENTOLIN HFA) 90 mcg/actuation inhaler Inhale 2 Puffs as instructed every 4 hours as needed. montelukast (SINGULAIR) 10 mg tablet Take 1 tablet by mouth daily at bedtime. omeprazole (PRILOSEC) 40 mg capsule Take 1 capsule by mouth once daily. aspirin, enteric coated (ASPIRIN, ENTERIC COATED) 81 mg EC tablet Take 1 tablet by mouth once daily. metoprolol tartrate, short acting, (LOPRESSOR) 25 mg tablet Take 1 tablet by mouth two times a day. albuterol (PROVENTIL) 2.5 mg /3 mL (0.083 %) nebulizer solution Use one vial every 4 hours as needed for wheezing/shortness of breath. Use over 5-15minutes. albuterol HFA (PROVENTIL HFA, VENTOLIN HFA) 90 mcg/actuation inhaler Inhale 2 Puffs as instructed every 4 hours as needed for wheezing/shortness of breath. chlorthalidone (HYGROTON) 25 mg tablet Take 1 tablet by mouth once daily. FAMILY HISTORY Adopted: Yes Family history unknown: Yes Social History Tobacco Use Smoking status: Former Current packs/day: 0.00 Average packs/day: 3.0 packs/day for 38.8 years (116.4 ttl pk-yrs) Types: Cigarettes Start date: 1981 Quit date: 05/02/2020 Years since quittin.3 Smokeless tobacco: Former Types: Snuff Quit date: 05/02/2020 Tobacco comments: Age 16-05/02/2019 Vaping Use Vaping status: Former Substance Use Topics Alcohol use: Not Currently Drug use: Never BP 116/86 Pulse (!) 58 Resp 14 Wt 90.6 kg (199 lb 11.8 oz) SpO2 99% BMI 31.28 kg/m Physical Exam Vitals reviewed. Constitutional: General: He is not in acute distress. Appearance: Normal appearance. He is not ill-appearing or toxic-appearing. Cardiovascular: Rate and Rhythm: Normal rate and regular rhythm. Heart sounds: Normal heart sounds. Pulmonary: Effort: Pulmonary effort is normal. Breath sounds: Normal breath sounds. No wheezing, rhonchi or rales. Abdominal: General: Bowel sounds are normal. There is distension. Palpations: Abdomen is soft. There is no hepatomegaly, splenomegaly or mass. Tenderness: There is no abdominal tenderness. Comments: Difficult exam due to body habitus Skin: General: Skin is warm and dry. Neurological: Mental Status: He is alert. DATA REVIEWED: Most recent labs and imaging results. Labs: - Urinalysis: No infection - Renal function: improved - Potassium: within normal limits - CBC: mild anemia Imaging: - Chest X-ray: normal Assessment/Plan 1. Upper abdominal pain (R10.10) Persistent sharp pain with no new symptoms. Recent urinalysis showed no infection, and kidney function has improved. No heartburn, reflux, or indigestion reported. Chest X-ray was normal. - Referred to general surgery for further evaluation to rule out any relation to previous surgery or other underlying causes. - Advised to seek emergency care if pain worsens or if new symptoms such as chest pain, increased shortness of breath, heart palpitations, or severe abdominal pain occur. 2. Chronic obstructive pulmonary disease, unspecified COPD type (HCC) (J44.9) Confirmed diagnosis by Dr. Escamilla. - Continue management with inhalers. - Follow-up with pulmonology in 6 months. 3. Iliac artery aneurysm, left (I72.3) Incidental finding, has not followed up with vascular surgeon as recommended. No current vascular specialist involved. - Follow-up with vascular surgery as previously recommended. 4. Primary hypertension (I10) Blood pressure has improved to 116/86 mmHg from 100/66 mmHg. Patient discontinued lisinopril 10 mg due to difficulty splitting the tablet. - Resume lisinopril at the 5 mg dose Prescription instructions reviewed with patient as applicable. Potential red flag symptoms discussed with the patient. Reviewed appropriate action plan to take if red flag symptoms occur. Patient agreeable to treatment plan. Leah Shaikh APRN.ASSISTANT TODDLER TEACHER documented in this encounter [facility] 09-03-2024 Instructions Leah Shaikh APRN.BARRINGTON - 09/03/2024 1:01 PM EDT We discussed your abdominal pain: - You are still experiencing abdominal pain, though it has improved slightly. There are no new symptoms, and your chest x-ray was normal. - I recommend following up with general surgery to evaluate whether your abdominal pain could be related to your prior hernia surgery or any other issues. Please schedule this appointment at the front edger. - If your pain worsens or you develop new symptoms such as chest pain, worsening shortness of breath, heart palpitations, or severe abdominal pain, please go to the ER immediately. We discussed your blood pressure and medications: - Your blood pressure today was 116/86, which is an improvement from your last visit (100/66). You reported feeling less dizzy and less like you might pass out. - You mentioned you stopped taking your 10 mg dose of Lisinopril because you were unable to split the tablet. I have sent in a new prescription for the correct dose. Please pick this up and resume taking it as prescribed. We discussed your COPD: - Dr. Escamilla has confirmed that you have COPD. While there is no cure, avoiding smoking can help prevent further progression of the disease. - COPD is typically managed with inhalers. Please continue using your inhalers as prescribed. - Dr. Escamilla recommended a follow-up in 6 months to monitor your condition. We discussed your lab results: - Your kidney function has improved compared to the past 6 months, and your potassium levels are now back to normal. - Your blood count remains slightly anemic. Please let me know if you experience any worsening symptoms related to this. Next steps: - Schedule an appointment with general surgery to evaluate your abdominal pain and vascular concerns. 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 - Continue using your inhalers for COPD management and follow up with Dr. Escamilla in 6 months. - Monitor your symptoms and seek immediate care if you experience worsening abdominal pain, chest pain, worsening shortness of breath, or other concerning symptoms. documented in this encounter [facility] 08-30-2024 Miscellaneous Notes Pt called and is notified of providers results. Pt voices understanding. Pt was asking about blood work and urine. I let him know that not all the results were in and they were probably waiting on all the results to come in to call on those. Win Pitt RN Chest x-ray was normal Leah Shaikh APRN.BARRINGTON Spoke with patient and he asked when the results of the x-ray would be in. Please advise. Emi You documented in this encounter [facility] 08-30-2024 Telephone encounter Note Pt called and is notified of providers results. Pt voices understanding. Pt was asking about blood work and urine. I let him know that not all the results were in and they were probably waiting on all the results to come in to call on those. Win Pitt, [facility] 08-30-2024 Telephone encounter Note Chest x-ray was normal Leah Shaikh APRN.BARRINGTON [facility] 08-30-2024 Telephone encounter Note Spoke with patient and he asked when the results of the x-ray would be in. Please advise. Emi You [facility] 08-30-2024 History of Present illness Narrative Radiology Service Progress Note PATIENT NAME: Shawna Prajapati DATE OF SERVICE: August 30, 2024 TIME: 1:46 PM PATIENT IDENTITY VERIFICATION COMPLETED USING TWO (2) IDENTIFIERS: Name and Date of confirmed by patient verbally. FALL SCREENING: Has the patient had 2 falls in the last year or 1 fall with injury or currently using an Ambulatory Assistive Device (Walker, Cane, Wheelchair, Crutches, etc.)? No PATIENT GENDER DATA: Assigned male at PATIENT RELEVANT IMPLANT DATA REVIEWED: Not Applicable PATIENT PRESENTS WITH AN IMPLANTABLE OR ATTACHED FISH PROCESSOR: No RADIOLOGY DEPARTMENT: General X-ray: Exam(s) Completed: Chest X-Ray PERIPHERAL IV DATA: Not applicable SIGNED BY: RT Barb(Yue) August 30, 2024 1:46 PM documented in this encounter [facility] 08-30-2024 Note HNO ID: [id number] Author: RIA GREEN RT (R) Service: Radiology Author Type: Technologist Type: Progress Notes Filed: 08/30/2024 13:58 Note Text: Radiology Service Progress Note PATIENT NAME: Shawna Prajapati DATE OF SERVICE: August 30, 2024 TIME: 1:46 PM PATIENT IDENTITY VERIFICATION COMPLETED USING TWO (2) IDENTIFIERS: Name and Date of confirmed by patient verbally. FALL SCREENING: Has the patient had 2 falls in the last year or 1 fall with injury or currently using an Ambulatory Assistive Device (Walker, Cane, Wheelchair, Crutches, etc.)? No PATIENT GENDER DATA: Assigned male at PATIENT RELEVANT IMPLANT DATA REVIEWED: Not Applicable PATIENT PRESENTS WITH AN IMPLANTABLE OR ATTACHED FISH PROCESSOR: No RADIOLOGY DEPARTMENT: General X-ray: Exam(s) Completed: Chest X-Ray PERIPHERAL IV DATA: Not applicable SIGNED BY: RT Barb(Yue) August 30, 2024 1:46 PM [facility] 08-30-2024 Note HNO ID: [id number] Author: LEAH SHAIKH APRN.BARRINGTON Service: ? Author Type: Nurse Practitioner Type: Progress Notes Filed: 08/30/2024 13:45 Note Text: CC: Patient presents with: Abdominal Pain: X 1 days Cough: X 2 weeks HPI Recording using [employer] software for draft documentation of the visit was discussed with the patient/authorized patient portal representative; all questions welcomed and answered. Patient/authorized patient portal representative agreed to proceed Shawna is a 59-year-old male with a history of asthma and a previous [place], presenting for follow-up and evaluation of new-onset severe abdominal pain and a persistent cough. Shawna reports a new onset of severe, sharp abdominal pain that began early this morning and is distinct from any previous pain experienced before his recent hernia surgery. He describes the pain as feeling like somebody's in there with a knife just whacking away. The pain is constant but can lighten up at times; it intensifies with certain movements, particularly when standing up or getting out of bed. His appetite remains normal, and eating does not exacerbate the abdominal pain. He has been feeling bloated and reports a recent bowel movement at 1030, which was larger than usual and somewhat difficult to pass, though he does not consider it constipation. He denies any urinary symptoms such as burning, urgency, or frequency and feels that he empties his bladder completely when urinating. Shawna denies any similar pain prior to the surgery and notes that the pain is different from the hernia-related pain he had before. He denies any severe pain at the surgical site, noting only a small bump and some scarring. However he does report similar abdominal pain when he had his heart attack a few years ago. Shawna also reports a persistent cough that has been ongoing for 2-3 weeks, which sometimes causes him to nearly vomit. He denies any new dyspnea, chest pain, palpitations, or wheezing associated with the cough, noting that dyspnea only occurs when his asthma exacerbates. He denies fever or chills. He reports feeling more fatigued since the onset of the cough, stating, my giddy up and go seems like a giddy up and went. He denies any new or unusual swelling in his ankles or feet. Shawna is currently taking lisinopril 10 mg daily for blood pressure management but expresses concern about his blood pressure being a little bit low and reports occasional lightheadedness. Review of Systems See HPI PAST MEDICAL HISTORY Diagnosis Date Asthma ([facility]) 1990 Chronic deep vein thrombosis (DVT) of calf muscle vein of right lower extremity ([facility]) 03/27/2023 COPD (chronic obstructive pulmonary disease) ([facility]) 2021 Coronary artery disease COVID-19 07/05/2021 EIC (epidermal inclusion cyst) 11/26/2019 Fibromyalgia 10/28/2016 Folliculitis 11/26/2019 GERD (gastroesophageal reflux disease) 01/27/2019 Hyperlipidemia 07/17/2021 Hypertension 07/17/2021 Inguinal hernia Irregular heartbeat NSTEMI (non-ST elevation myocardial infarction) ([facility]) 05/03/2020 [place], [place] MARG[place]ITO on CPAP 2012 with nocturnal O2. Pancreatitis, chronic ([facility]) 09/07/2019 Seborrheic dermatitis 11/26/2019 Shingles outbreak 09/12/2021 Spinal stenosis, lumbar region with neurogenic claudication 11/20/2015 PAST SURGICAL HISTORY Procedure Laterality Date CC CORONARY STENT 05/04/2020 [facility] to LAD AND Circ, [facility] HERNIA REPAIR HX Right 1964 inguinal HERNIA REPAIR HX Left 1990 inguinal HERNIA REPAIR HX 07/27/2024 LAMINECTOMY,LUMBAR 11/08/2021 Dr. Cristóbal Maldonado [facility] HERNIA REPAIR W/MESH 07/27/2024 ALLERGIES Cabbage, Lettuce, Onion Extract, Garlic Oil, and Nut - Unspecified MEDICATIONS lisinopril (ZESTRIL) 5 mg tablet Take 1 tablet by mouth once daily. BREZTRI AEROSPHERE 160-9-4.8 mcg/actuation HFA aerosol inhaler INHALE 2 PUFFS BY MOUTH TWICE DAILY DIRECTED rivaroxaban (XARELTO) 20 mg tablet Take 20 mg by mouth daily with dinner. fluticasone (FLONASE ALLERGY RELIEF) 50 mcg/actuation nasal spray Use 2 Sprays in each nostril once daily. albuterol HFA (PROVENTIL HFA, VENTOLIN HFA) 90 mcg/actuation inhaler Inhale 2 Puffs as instructed every 4 hours as needed. montelukast (SINGULAIR) 10 mg tablet Take 1 tablet by mouth daily at bedtime. omeprazole (PRILOSEC) 40 mg capsule Take 1 capsule by mouth once daily. aspirin, enteric coated (ASPIRIN, ENTERIC COATED) 81 mg EC tablet Take 1 tablet by mouth once daily. metoprolol tartrate, short acting, (LOPRESSOR) 25 mg tablet Take 1 tablet by mouth two times a day. albuterol (PROVENTIL) 2.5 mg /3 mL (0.083 %) nebulizer solution Use one vial every 4 hours as needed for wheezing/shortness of breath. Use over 5-15minutes. albuterol HFA (PROVENTIL HFA, VENTOLIN HFA) 90 mcg/actuation inhaler Inhale 2 Puffs as instructed every 4 hours as needed for wheezing/shortness of breath. chlorthalidone (HYGROTON) (more content not included)... [facility] 08-30-2024 History of Present illness Narrative CC: Patient presents with: Abdominal Pain: X 1 days Cough: X 2 weeks HPI Recording using [employer] software for draft documentation of the visit was discussed with the patient/authorized patient portal representative; all questions welcomed and answered. Patient/authorized patient portal representative agreed to proceed Shawna is a 59-year-old male with a history of asthma and a previous [place], presenting for follow-up and evaluation of new-onset severe abdominal pain and a persistent cough. Shawna reports a new onset of severe, sharp abdominal pain that began early this morning and is distinct from any previous pain experienced before his recent hernia surgery. He describes the pain as feeling like somebody's in there with a knife just whacking away. The pain is constant but can lighten up at times; it intensifies with certain movements, particularly when standing up or getting out of bed. His appetite remains normal, and eating does not exacerbate the abdominal pain. He has been feeling bloated and reports a recent bowel movement at 1030, which was larger than usual and somewhat difficult to pass, though he does not consider it constipation. He denies any urinary symptoms such as burning, urgency, or frequency and feels that he empties his bladder completely when urinating. Shawna denies any similar pain prior to the surgery and notes that the pain is different from the hernia-related pain he had before. He denies any severe pain at the surgical site, noting only a small bump and some scarring. However he does report similar abdominal pain when he had his heart attack a few years ago. Shawna also reports a persistent cough that has been ongoing for 2-3 weeks, which sometimes causes him to nearly vomit. He denies any new dyspnea, chest pain, palpitations, or wheezing associated with the cough, noting that dyspnea only occurs when his asthma exacerbates. He denies fever or chills. He reports feeling more fatigued since the onset of the cough, stating, my giddy up and go seems like a giddy up and went. He denies any new or unusual swelling in his ankles or feet. Shawna is currently taking lisinopril 10 mg daily for blood pressure management but expresses concern about his blood pressure being a little bit low and reports occasional lightheadedness. Review of Systems See HPI PAST MEDICAL HISTORY Diagnosis Date Asthma ([facility]) 1990 Chronic deep vein thrombosis (DVT) of calf muscle vein of right lower extremity ([facility]) 03/27/2023 COPD (chronic obstructive pulmonary disease) ([facility]) 2021 Coronary artery disease COVID-19 07/05/2021 EIC (epidermal inclusion cyst) 11/26/2019 Fibromyalgia 10/28/2016 Folliculitis 11/26/2019 GERD (gastroesophageal reflux disease) 01/27/2019 Hyperlipidemia 07/17/2021 Hypertension 07/17/2021 Inguinal hernia Irregular heartbeat NSTEMI (non-ST elevation myocardial infarction) ([facility]) 05/03/2020 [place], [place] MARGARITO on CPAP 2012 with nocturnal O2. Pancreatitis, chronic ([facility]) 09/07/2019 Seborrheic dermatitis 11/26/2019 Shingles outbreak 09/12/2021 Spinal stenosis, lumbar region with neurogenic claudication 11/20/2015 PAST SURGICAL HISTORY Procedure Laterality Date CC CORONARY STENT 05/04/2020 [facility]NOLD to LAD & Circ, [facility] HERNIA REPAIR HX Right 1964 inguinal HERNIA REPAIR HX Left 1990 inguinal HERNIA REPAIR HX 07/27/2024 LAMINECTOMY,LUMBAR 11/08/2021 Dr. Cristóbal Maldonado LAP HERNIA REPAIR W/MESH 07/27/2024 ALLERGIES Cabbage, Lettuce, Onion Extract, Garlic Oil, and Nut - Unspecified MEDICATIONS lisinopril (ZESTRIL) 5 mg tablet Take 1 tablet by mouth once daily. BREZTRI AEROSPHERE 160-9-4.8 mcg/actuation HFA aerosol inhaler INHALE 2 PUFFS BY MOUTH TWICE DAILY DIRECTED rivaroxaban (XARELTO) 20 mg tablet Take 20 mg by mouth daily with dinner. fluticasone (FLONASE ALLERGY RELIEF) 50 mcg/actuation nasal spray Use 2 Sprays in each nostril once daily. albuterol HFA (PROVENTIL HFA, VENTOLIN HFA) 90 mcg/actuation inhaler Inhale 2 Puffs as instructed every 4 hours as needed. montelukast (SINGULAIR) 10 mg tablet Take 1 tablet by mouth daily at bedtime. omeprazole (PRILOSEC) 40 mg capsule Take 1 capsule by mouth once daily. aspirin, enteric coated (ASPIRIN, ENTERIC COATED) 81 mg EC tablet Take 1 tablet by mouth once daily. metoprolol tartrate, short acting, (LOPRESSOR) 25 mg tablet Take 1 tablet by mouth two times a day. albuterol (PROVENTIL) 2.5 mg /3 mL (0.083 %) nebulizer solution Use one vial every 4 hours as needed for wheezing/shortness of breath. Use over 5-15minutes. albuterol HFA (PROVENTIL HFA, VENTOLIN HFA) 90 mcg/actuation inhaler Inhale 2 Puffs as instructed every 4 hours as needed for wheezing/shortness of breath. chlorthalidone (HYGROTON) 25 mg tablet Take 1 tablet by mouth once daily. FAMILY HISTORY Adopted: Yes Family history unknown: Yes Social History Tobacco Use Smoking status: Former Current packs/day: 0.00 Average packs/day: 3.0 packs/day for 38.8 years (116.4 ttl pk-yrs) Types: Cigarettes Start date: 1981 Quit date: 05/02/2020 Years since quittin.3 Smokeless tobacco: Former Types: Snuff Quit date: 05/02/2020 Tobacco comments: Age 16-05/02/2019 Vaping Use Vaping status: Former Substance Use Topics Alcohol use: Not Currently Drug use: Never BP 100/66 Pulse 72 Resp 14 Wt 90.9 kg (200 lb 6.4 oz) SpO2 96% BMI 31.39 kg/m Physical Exam Vitals reviewed. Constitutional: General: He is not in acute distress. Appearance: Normal appearance. He is not ill-appearing or toxic-appearing. Eyes: General: No scleral icterus. Conjunctiva/sclera: Conjunctivae normal. Cardiovascular: Rate and Rhythm: Regular rhythm. Bradycardia present. Heart sounds: Normal heart sounds. No murmur heard. Pulmonary: Effort: Pulmonary effort is normal. Breath sounds: Normal breath sounds. No wheezing, rhonchi or rales. Abdominal: General: Bowel sounds are normal. There is distension. Palpations: Abdomen is soft. There is no hepatomegaly, splenomegaly or mass. Tenderness: There is no abdominal tenderness. There is no right CVA tenderness or left CVA tenderness. Comments: Difficult exam due to body habitus. Surgical lap sites well healed. No tenderness with palpation. Skin: General: Skin is warm and dry. Coloration: Skin is not jaundiced or pale. Neurological: Mental Status: He is alert. Psychiatric: Mood and Affect: Mood normal. DATA REVIEWED: Most recent labs Most recent EKG Latest Ref Rng 08/19/2024 WBC 3.70 - 11.00 k/uL 11.75 (H) RBC 4.20 - 6.00 m/uL 4.63 Hemoglobin 13.0 - 17.0 g/dL 11.6 (L) Hematocrit 39.0 - 51.0 % 39.9 MCV 80.0 - 100.0 fL 86.2 MCH 26.0 - 34.0 pg 25.1 (L) MCHC 30.5 - 36.0 g/dL 29.1 (L) RDW-CV 11.5 - 15.0 % 14.8 Platelet Count 150 - 400 k/uL 442 (H) MPV 9.0 - 12.7 fL 10.8 Absolute nRBC <0.01 k/uL <0.01 Glucose 74 - 99 mg/dL 87 BUN 9 - 24 mg/dL 42 (H) Creatinine 0.73 - 1.22 mg/dL 1.48 (H) Sodium 136 - 144 mmol/L 137 Potassium 3.7 - 5.1 mmol/L 5.2 (H) Chloride 98 - 107 mmol/L 102 CO2 22 - 30 mmol/L 24 Anion Gap 8 - 15 mmol/L 11 Calcium 8.5 - 10.2 mg/dL 9.5 eGFR >=60 mL/min/1.73m 54 (L) Legend: (H) High (L) Low Assessment/Plan 1. Upper abdominal pain (R10.10) New onset, sharp, intermittent pain exacerbated by movement. No associated nausea, vomiting, or changes in appetite. No significant tenderness on examination. Differential diagnoses include cardiac, pulmonary, and gastrointestinal etiologies. Due to severity of pain and similarity to previous [place] symptoms recommend patient go to the ER for further evaluation, patient declined. Discussed possible causes of symptoms and potential complications including and urged patient to reconsider, he continued to decline. - Ordered EKG, which showed changes similar to those seen in 202 during previous myocardial infarction. - Ordered chest X-ray and blood work to further evaluate potential cardiac and pulmonary causes. - Advised patient to seek immediate emergency care if pain worsens or if new symptoms such as chest pain or back pain develop. 2. 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, unspecified vessel or lesion type (I25.10) History of myocardial infarction in 2020. EKG changes noted today are similar to those from 202. 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 - Recommended follow-up with cardiology for further evaluation and management. - Advised patient on the importance of monitoring for chest pain and seeking emergency care if symptoms occur. - follow-up in primary care TBD pending results of work-up 3. Primary hypertension (I10) Blood pressure readings have been consistently low. Currently on Lisinopril 10 mg daily. - Decreased Lisinopril dose to 5 mg daily. - Instructed patient to split current 10 mg tablets in half until new prescription is filled. - Sent new prescription for Lisinopril 5 mg to [facility]. 4. Acute cough (R05.1) Persistent for 2-3 weeks, no associated fever or chills. Occasional wheezing attributed to asthma. No new shortness of breath or chest pain reported. - Ordered chest X-ray to evaluate for potential pulmonary causes. - Advised patient to monitor for any worsening symptoms. 5. Hyperlipidemia, unspecified hyperlipidemia type (E78.5) Chronic condition, no acute changes reported. Due for labs 6. Constipation, unspecified constipation type (K59.00) Recent bowel movement described as larger than usual and difficult to pass. No significant abdominal tenderness on examination. Possibly contributing to bloating and abdominal pain however patient denies this. - Monitor bowel habits and maintain adequate hydration and fiber intake. Prescription instructions reviewed with patient as applicable. Potential red flag symptoms discussed with the patient. Reviewed appropriate action plan to take if red flag symptoms occur. Patient agreeable to treatment plan. Leah Shaikh APRN.CNP documented in this encounter [facility] 08-30-2024 Instructions Leah Shaikh APRN.CNP - 08/30/2024 1:32 PM EDT We discussed your abdominal pain: - You reported new, sharp abdominal pain that worsens with movement, particularly when getting out of bed. This pain is different from the pain you experienced before your hernia surgery. - I performed an EKG, which showed changes compared to your May EKG. These changes are similar to those seen in 2020 when you had a heart attack. While I cannot confirm the cause of your abdominal pain (heart, lungs, or gastrointestinal), I strongly recommend that you go to the emergency room if this pain feels similar to your heart attack or if it worsens. - If you experience chest pain, back pain, or any new or worsening symptoms, please go to the emergency room immediately or call 911. - I ordered blood work and a chest x-ray to further evaluate your symptoms. Please complete these tests as soon as possible. - I will review the results and contact you with any updates or further recommendations We discussed your blood pressure: - Your blood pressure has been low, and you reported occasional lightheadedness. To address this, I am decreasing your Lisinopril dose from 10 mg to 5 mg daily. - Split your remaining 10 mg tablets in half to make 5 mg doses until your new prescription is ready. - Your new prescription for 5 mg Lisinopril has been sent to [facility]. Please take one whole 5 mg tablet daily once you pick it up. Important instructions: - If your abdominal pain worsens, or if you experience chest pain, back pain, or any new or concerning symptoms, please go to the emergency room immediately. - Continue monitoring your symptoms and let us know if anything changes. documented in this encounter [facility] 08-19-2024 History of Present illness Narrative Images from the original note were not included. Recording using [employer] software for draft documentation of the visit was discussed with the patient/authorized patient portal representative; all questions welcomed and answered. Patient/authorized patient portal representative agreed to proceed [facility] New Patient Evaluation PATIENT NAME: Shawna Prajapati DATE OF SERVICE: August 19, 2024 CONSULTING PROVIDER: Homero Escamilla ([facility]) [address] [facility] [address] REASON FOR CONSULT: Homero Escamilla sends the patient for an opinion about MARGARITO, no longer has PAP (was homeless). My findings and recommendations will be transmitted electronically via shared medical record to the consulting provider. HPI: Shawna Prajapati is a 59 year old male. Sleep-related history: MARGARITO, needs a replacement PAP device, his was lost during a housing issue, it was >5 yrs old 1. Concerns: - Sleep Apnea - Patient is a 59-year-old male presenting with a history of sleep apnea. Needs a replacement CPAP. - Diagnosed with sleep apnea at [facility] over 5 years ago. - Previously used CPAP therapy, which was helpful. Got machine more than 5 yrs ago, it was lost due to a housing issue. - Used oxygen in conjunction with CPAP approximately 2-3 years ago. - Reports significant improvement in sleep quality with CPAP and oxygen. - Living Situation - Currently renting a room in a house with three other individuals. - Sleep Behaviors - Reports fighting, cussing, and screaming in his sleep. - These behaviors resolved with CPAP use. - Acid Reflux - Reports having acid reflux. - Leg Pains - Experiences sharp pains in his legs but denies restless legs. - Daytime Sleepiness - Denies significant daytime sleepiness. - Reports being active and willing to go about his day. - Caffeine Use - Drinks 1-2 cups of coffee daily with sugar and creamer. - Occasionally drinks sweet tea and prefers sugar-free sparkling water. 2. Sleep history: - Overall goals of treatment: Improve sleep quality and reduce apneas. - Sleep habits: - Typical bedtime: Between 20:00 and 21:00 - Typical wake time: Between 07:00 and 09:00 - Time to fall asleep: Varies; quicker with relaxing music. - Nighttime awakening number: Varies; 1-3 times per night to use the bathroom. - Nap schedule: Rarely takes naps. Patient Questionnaires Sleep Scores PAST TREATMENTS: PAP, w/ O2 bleed in about 2 yrs ago PRIOR SLEEP STUDIES: Not available OTHER RELEVANT LABS AND STUDIES: 12/22/22 Echo EF 55-60% PAST MEDICAL HISTORY Diagnosis Date Asthma ([facility]) 1990 Chronic deep vein thrombosis (DVT) of calf muscle vein of right lower extremity ([facility]) 03/27/2023 COPD (chronic obstructive pulmonary disease) ([facility]) 2021 Coronary artery disease COVID-19 07/05/2021 EIC (epidermal inclusion cyst) 11/26/2019 Fibromyalgia 10/28/2016 Folliculitis 11/26/2019 GERD (gastroesophageal reflux disease) 01/27/2019 Hyperlipidemia 07/17/2021 Hypertension 07/17/2021 Inguinal hernia Irregular heartbeat NSTEMI (non-ST elevation myocardial infarction) ([facility]) 05/03/2020 [place], [place] MARGARITO on CPAP 2012 with nocturnal O2. Pancreatitis, chronic ([facility]) 09/07/2019 Seborrheic dermatitis 11/26/2019 Shingles outbreak 09/12/2021 Spinal stenosis, lumbar region with neurogenic claudication 11/20/2015 PAST SURGICAL HISTORY Procedure Laterality Date CC CORONARY STENT 05/04/2020 ARNOLD to LAD & Circ, [facility] HERNIA REPAIR HX Right 1964 inguinal HERNIA REPAIR HX Left 1990 inguinal HERNIA REPAIR HX 07/27/2024 LAMINECTOMY,LUMBAR 11/08/2021 Dr. Cristóbal Maldonado ACTIVE PROBLEM LIST Seborrheic Dermatitis Asthma ([facility]) Copd (Chronic Obstructive Pulmonary Disease) ([facility]) Margarito On Cpap Hyperlipidemia Hypertension Coronary Artery Disease Involving [place] [facility] Without Angina Pectoris Obesity, Class I, Bmi 30-34.9 Homelessness Chronic Deep Vein Thrombosis (Dvt) of Calf Muscle Vein of Right Lower Extremity ([facility]) Gastroesophageal Reflux Disease Without Esophagitis Delusions ([facility]) Bilateral Edema of Lower Extremity Constipation Lung Nodules History of Cigarette Smoking Pvd (Peripheral Vascular Disease) Allergies As of Date: 08/19/2024 Allergen Noted Reaction CABBAGE 11/09/2021 Other: See Comments LETTUCE 11/09/2021 Other: See Comments ONION EXTRACT 11/09/2021 Vomiting GARLIC OIL 07/02/2022 GI Upset Fully Assessed 08/19/2024 CURRENT MEDICATIONS: rivaroxaban (XARELTO) 20 mg tablet Take 20 mg by mouth daily with dinner. albuterol HFA (PROVENTIL HFA, VENTOLIN HFA) 90 mcg/actuation inhaler Inhale 2 Puffs as instructed every 4 hours as needed. omeprazole (PRILOSEC) 40 mg capsule Take 1 capsule by mouth once daily. aspirin, enteric coated (ASPIRIN, ENTERIC COATED) 81 mg EC tablet Take 1 tablet by mouth once daily. metoprolol tartrate, short acting, (LOPRESSOR) 25 mg tablet Take 1 tablet by mouth two times a day. albuterol (PROVENTIL) 2.5 mg /3 mL (0.083 %) nebulizer solution Use one vial every 4 hours as needed for wheezing/shortness of breath. Use over 5-15minutes. albuterol HFA (PROVENTIL HFA, VENTOLIN HFA) 90 mcg/actuation inhaler Inhale 2 Puffs as instructed every 4 hours as needed for wheezing/shortness of breath. lisinopril (ZESTRIL) 10 mg tablet Take 1 tablet by mouth once daily. chlorthalidone (HYGROTON) 25 mg tablet Take 1 tablet by mouth once daily. BREZTRI AEROSPHERE 160-9-4.8 mcg/actuation HFA aerosol inhaler INHALE TWO (2) PUFFS BY MOUTH TWICE DAILY INSTRUCTED fluticasone (FLONASE ALLERGY RELIEF) 50 mcg/actuation nasal spray Use 2 Sprays in each nostril once daily. (Patient not taking: Reported on 08/19/2024) montelukast (SINGULAIR) 10 mg tablet Take 1 tablet by mouth daily at bedtime. (Patient not taking: Reported on 08/19/2024) Review of Systems Constitutional: (+) sleep disturbance, (-) weight changes Respiratory: (+) snoring Gastrointestinal: (+) acid reflux Genitourinary: (+) nocturia Musculoskeletal: (+) leg pain (sharp pains/cramps) Neurological: (-) restless legs, (-) memory changes Psychiatric: (+) parasomnias (cussing/fighting in sleep), (-) nighttime anxiety SOCIAL HISTORY: Social History Tobacco Use Smoking status: Former Current packs/day: 0.00 Average packs/day: 3.0 packs/day for 38.8 years (116.4 ttl pk-yrs) Types: Cigarettes Start date: 1981 Quit date: 05/02/2020 Years since quittin.3 Smokeless tobacco: Former Types: Snuff Quit date: 05/02/2020 Tobacco comments: Age 16-05/02/2019 Vaping Use Vaping status: Former Substance Use Topics Alcohol use: Not Currently Drug use: Never FAMILY HISTORY: FAMILY HISTORY Adopted: Yes Family history unknown: Yes PHYSICAL EXAMINATION: Vital Signs: BP 98/62 (BP Site: Left Arm, BP Position: Sitting) Pulse 64 Resp 18 Wt 91 kg (200 lb 9.6 oz) SpO2 93% BMI 31.42 kg/m PHYSICAL EXAM: General appearance: initially very disgruntled Mental status: alert and oriented, able to provide own history Constitutional: obese Skin: No visible rashes on exposed skin Dentures Uses a walking stick Coughs frequently IMPRESSION/PLAN: G47.33 MARGARITO (obstructive sleep apnea) Shawna Prajapati is a 59 year old male with hx of MARGARITO previously treated with PAP therapy and supplemental O2 per patient. No records available. His PAP machine was lost because of a housing issue; he believes the device was >5 yrs old. He was initially very disgruntled today, he was swearing and yelling--he arrived more than 3 hours early for his appointment but insisted we had the wrong time. I was able to see him 1.5 hrs earlier than his scheduled appointment, he was calm and cooperative then. PMH includes obesity, asthma COPD overlap syndrome,, GERD, HLD, HTN, CAD s/p stents, allergies requiring immunotherapy in the past, ventral hernia repair 1. MARGARITO (obstructive sleep apnea) (G47.33) Diagnosed over 5 years ago with a sleep study at [facility]. Previously used CPAP with supplemental oxygen, which improved symptoms. His CPAP machine was over 5 years old, it was lost due to a housing issue. Reports parasomnias, including fighting and cussing in sleep, which resolved with CPAP use. Nocturia 1-3 times per night. Nocturnal acid reflux present. No reports of sleep paralysis, hallucinations, or excessive daytime sleepiness. Weight is stable at 200 lbs. - He is followed by Pulm for asthma COPD overlap and hx of smoking - Ordered home sleep study; equipment will be sent via [employer] with instructions for use. HSAT required by insurance. - Will likely need PAP titration study. We discussed this. - Discussed the importance of CPAP therapy in reducing apneic events and improving sleep quality. - Patient understands and agrees with the plan. Ольга Hughes APRN.CNP documented in this encounter [facility] 08-19-2024 Note HNO ID: [id number] Author: ОЛЬГА HUGHES APRN.CNP Service: ? Author Type: Nurse Practitioner Type: Progress Notes Filed: 08/24/2024 07:36 Note Text: Recording using [employer] software for draft documentation of the visit was discussed with the patient/authorized patient portal representative; all questions welcomed and answered. Patient/authorized patient portal representative agreed to proceed [facility] New Patient Evaluation PATIENT NAME: Shawna Prajapati DATE OF SERVICE: August 19, 2024 CONSULTING PROVIDER: Homero Escamilla ([facility]) [address] [facility] [address] REASON FOR CONSULT: Homero Escamilla sends the patient for an opinion about MARGARITO, no longer has PAP (was homeless). My findings and recommendations will be transmitted electronically via shared medical record to the consulting provider. HPI: Shawna Prajapati is a 59 year old male. Sleep-related history: MARGARITO, needs a replacement PAP device, his was lost during a housing issue, it was >5 yrs old 1. Concerns: - Sleep Apnea - Patient is a 59-year-old male presenting with a history of sleep apnea. Needs a replacement CPAP. - Diagnosed with sleep apnea at [facility] over 5 years ago. - Previously used CPAP therapy, which was helpful. Got machine more than 5 yrs ago, it was lost due to a housing issue. - Used oxygen in conjunction with CPAP approximately 2-3 years ago. - Reports significant improvement in sleep quality with CPAP and oxygen. - Living Situation - Currently renting a room in a house with three other individuals. - Sleep Behaviors - Reports fighting, cussing, and screaming in his sleep. - These behaviors resolved with CPAP use. - Acid Reflux - Reports having acid reflux. - Leg Pains - Experiences sharp pains in his legs but denies restless legs. - Daytime Sleepiness - Denies significant daytime sleepiness. - Reports being active and willing to go about his day. - Caffeine Use - Drinks 1-2 cups of coffee daily with sugar and creamer. - Occasionally drinks sweet tea and prefers sugar-free sparkling water. 2. Sleep history: - Overall goals of treatment: Improve sleep quality and reduce apneas. - Sleep habits: - Typical bedtime: Between 20:00 and 21:00 - Typical wake time: Between 07:00 and 09:00 - Time to fall asleep: Varies; quicker with relaxing music. - Nighttime awakening number: Varies; 1-3 times per night to use the bathroom. - Nap schedule: Rarely takes naps. Patient Questionnaires Sleep Scores PAST TREATMENTS: PAP, w/ O2 bleed in about 2 yrs ago PRIOR SLEEP STUDIES: Not available OTHER RELEVANT LABS AND STUDIES: 12/22/22 Echo EF 55-60% PAST MEDICAL HISTORY Diagnosis Date Asthma ([facility]) 1990 Chronic deep vein thrombosis (DVT) of calf muscle vein of right lower extremity ([facility]) 03/27/2023 COPD (chronic obstructive pulmonary disease) ([facility]) 2021 Coronary artery disease COVID-19 07/05/2021 EIC (epidermal inclusion cyst) 11/26/2019 Fibromyalgia 10/28/2016 Folliculitis 11/26/2019 GERD (gastroesophageal reflux disease) 01/27/2019 Hyperlipidemia 07/17/2021 Hypertension 07/17/2021 Inguinal hernia Irregular heartbeat NSTEMI (non-ST elevation myocardial infarction) ([facility]) 05/03/2020 [place], [place] MARGARITO on CPAP 2012 with nocturnal O2. Pancreatitis, chronic ([facility]) 09/07/2019 Seborrheic dermatitis 11/26/2019 Shingles outbreak 09/12/2021 Spinal stenosis, lumbar region with neurogenic claudication 11/20/2015 PAST SURGICAL HISTORY Procedure Laterality Date CC CORONARY STENT 05/04/2020 ARNOLD to LAD AND Circ, [facility] HERNIA REPAIR HX Right 1964 inguinal HERNIA REPAIR HX Left 1990 inguinal HERNIA REPAIR HX 07/27/2024 LAMINECTOMY,LUMBAR 11/08/2021 Dr. Cristóbal Maldonado ACTIVE PROBLEM LIST Seborrheic Dermatitis Asthma ([facility]) Copd (Chronic Obstructive Pulmonary Disease) ([facility]) Margarito On Cpap Hyperlipidemia Hypertension Coronary Artery Disease Involving [place] [facility] Without Angina Pectoris Obesity, Class I, Bmi 30-34.9 Homelessness Chronic Deep Vein Thrombosis (Dvt) of Calf Muscle Vein of Right Lower Extremity ([facility]) Gastroesophageal Reflux Disease Without Esophagitis Delusions ([facility]) Bilateral Edema of Lower Extremity Constipation Lung Nodules History of Cigarette Smoking Pvd (Peripheral Vascular Disease) Allergies As of Date: 08/19/2024 Allergen Noted Reaction CABBAGE 11/09/2021 Other: See Comments LETTUCE 11/09/2021 Other: See Comments ONION EXTRACT 11/09/2021 Vomiting GARLIC OIL 07/02/2022 GI Upset Fully Assessed 08/19/2024 CURRENT MEDICATIONS: rivaroxaban (XARELTO) 20 mg tablet Take 20 mg by mouth daily with dinner. albuterol HFA (PROVENTIL HFA, VENTOLIN HFA) 90 mcg/actuation inhaler Inhale 2 Puffs as instructed every 4 hours as needed. omeprazole (PRILOSEC) 40 mg capsule Take 1 capsule by mouth once daily. aspirin, enteric coated (ASPIRIN, ENTERIC COATED) 81 mg EC tablet (more content not included)... [facility] 08-19-2024 Instructions Ольга Hughes APRN.CNP - 08/19/2024 11:51 AM EDT A home sleep study will be scheduled for you; the sleep aquaculture and fisheries professor will arrange the delivery of the equipment via Fed[employer]. When you receive the equipment, please review and follow the included photos for proper sensor placement At bedtime, turn on the device by pressing the start button, and turn it off when you wake up in the morning. If the device shows a red light, replace the battery with one of the extra batteries provided. Expect further communication regarding a new CPAP machine, as your current one is over 5 years old. The results will be available after 1-2 weeks. Then we'll see if we need a PAP titration study in the sleep lab. Then I will prescribe a new PAP machine for you. documented in this encounter [facility] 08-11-2024 History of Present illness Narrative Images from the original note were not included. SUBJECTIVE: Shawna Prajapati presents for follow up of his ventral hernia repair WITH mesh. On 07/27/2024 he underwent a hernia repair, tolerated the procedure well and was discharged home. Patient complaints: None He denies pain, drainage, redness around wound, difficulty voiding, and constipation. Shawna does admit to lifting 25lb sugar bag and not following the rules. He has had multiple hernia repairs and is aware of the consequences of not adhering to activity restrictions. OBJECTIVE: Temp 36.8 C (98.3 F) (Temporal) General Appearance: Well developed, No acute distress Abdomen: Abdomen soft, non-distended. Incision: no drainage, no erythema, no swelling, mild ecchymosis, and no tenderness Participation of a fellow, resident, medical student, or advanced practice provider student in performing the sensitive examination was discussed with the patient or authorized patient portal representative. The patient or authorized patient portal representative has agreed to proceed with the sensitive examination. IMPRESSION: Post op course: Normal PLAN: Post-op patient instructions were reviewed with the patient. I have explained to Mr. Prajapati that he may return to normal activity with the following restrictions: No heavy lifting, pushing, or pulling greater than 20 lbs for 8 weeks post-operatively. We discussed thoroughly the reason for the restrictions and he acknowledges potential adverse effects of not following the activity restrictions. I have encouraged him to contact me at any time with any questions or concerns that may arise. Follow up: PIERO Jurado APRN.[place] documented in this encounter [facility] 08-11-2024 Note HNO ID: [id number] Author: VICTORIA JURADO APRN.CNP Service: ? Author Type: Nurse Practitioner Type: Progress Notes Filed: 08/11/2024 14:57 Note Text: SUBJECTIVE: Shawna Prajapati presents for follow up of his ventral hernia repair WITH mesh. On 07/27/2024 he underwent a hernia repair, tolerated the procedure well and was discharged home. Patient complaints: None He denies pain, drainage, redness around wound, difficulty voiding, and constipation. Shawna does admit to lifting 25lb sugar bag and not following the rules. He has had multiple hernia repairs and is aware of the consequences of not adhering to activity restrictions. OBJECTIVE: Temp 36.8 ?C (98.3 ?F) (Temporal) General Appearance: Well developed, No acute distress Abdomen: Abdomen soft, non-distended. Incision: no drainage, no erythema, no swelling, mild ecchymosis, and no tenderness Participation of a fellow, resident, medical student, or advanced practice provider student in performing the sensitive examination was discussed with the patient or authorized patient portal representative. The patient or authorized patient portal representative has agreed to proceed with the sensitive examination. IMPRESSION: Post op course: Normal PLAN: Post-op patient instructions were reviewed with the patient. I have explained to Mr. Prajapati that he may return to normal activity with the following restrictions: No heavy lifting, pushing, or pulling greater than 20 lbs for 8 weeks post-operatively. We discussed thoroughly the reason for the restrictions and he acknowledges potential adverse effects of not following the activity restrictions. I have encouraged him to contact me at any time with any questions or concerns that may arise. Follow up: PIERO Jurado APRN.[facility] 07-31-2024 Telephone encounter Note Phoned patient went over notes from Dr Jordan with understanding. He will restart the medications today. [facility] 07-31-2024 Miscellaneous Notes Phoned patient went over notes from Dr Jordan with understanding. He will restart the medications today. Resume all chronic medications, including metoprolol and Xarelto. Patient reports he had surgery 3 days ago (Per record: LAPAROSCOPIC HERNIORRHAPHY FOR REDUCIBLE VENTRAL LESS THAN 3cm with Michelle Castaneda MD on 07/27/[address] Jordan if he should start taking his Xarelto and Metoprolol medication again? States he stopped taking them for the procedure and has not restarted them yet. Please call patient today, with reply, if possible. Abbie Davis RN documented in this encounter [facility] 07-31-2024 Telephone encounter Note Resume all chronic medications, including metoprolol and Xarelto. [facility] 07-30-2024 Telephone encounter Note Patient reports he had surgery 3 days ago (Per record: LAPAROSCOPIC HERNIORRHAPHY FOR REDUCIBLE VENTRAL LESS THAN 3cm with Michelle Castaneda MD on 07/27/2024 ). Patient [address] Dr[address] Jordan if he should start taking his Xarelto and Metoprolol medication again? States he stopped taking them for the procedure and has not restarted them yet. Please call patient today, with reply, if possible. Abbie Davis RN [facility] 07-27-2024 Note HNO ID: [id number] Author: ?, ?, ? Service: Pharmacy Author Type: ? Type: Plan of Care Filed: 07/27/2024 12:59 Note Text: PHARMACY BEDSIDE DELIVERY SERVICE Patient Name: Shawna Prajapati The marked outpatient medications were Filled at: [facility] and delivered to the patient's bedside to pharm p/u Medication List START taking these medications oxyCODONE-acetaminophen 5-325 mg tablet Commonly known as: PERCOCET Take 1 tablet by mouth four times a day as needed for pain for up to 5 days. FOR PAIN. X CONTINUE taking these medications * albuterol HFA 90 mcg/actuation inhaler Commonly known as: PROVENTIL HFA, VENTOLIN HFA Inhale 2 Puffs as instructed every 4 hours as needed for wheezing/shortness of breath. * albuterol 2.5 mg /3 mL (0.083 %) nebulizer solution Commonly known as: PROVENTIL Use one vial every 4 hours as needed for wheezing/shortness of breath. Use over 5-15minutes. * albuterol HFA 90 mcg/actuation inhaler Commonly known as: PROVENTIL HFA, VENTOLIN HFA Inhale 2 Puffs as instructed every 4 hours as needed. aspirin, enteric coated 81 mg EC tablet Commonly known as: ASPIRIN, ENTERIC COATED Take 1 tablet by mouth once daily. BREZTRI AEROSPHERE 160-9-4.8 mcg/actuation HFA aerosol inhaler Generic drug: fhzytudaqd-aiqeqhmc-wirobwkngw INHALE TWO (2) PUFFS BY MOUTH TWICE DAILY INSTRUCTED chlorthalidone 25 mg tablet Commonly known as: HYGROTON Take 1 tablet by mouth once daily. fluticasone 50 mcg/actuation nasal spray Commonly known as: FLONASE ALLERGY RELIEF Use 2 Sprays in each nostril once daily. lisinopril 10 mg tablet Commonly known as: ZESTRIL Take 1 tablet by mouth once daily. metoprolol tartrate (short acting) 25 mg tablet Commonly known as: LOPRESSOR Take 1 tablet by mouth two times a day. montelukast 10 mg tablet Commonly known as: SINGULAIR Take 1 tablet by mouth daily at bedtime. omeprazole 40 mg capsule Commonly known as: PriLOSEC Take 1 capsule by mouth once daily. XARELTO 20 mg tablet Generic drug: rivaroxaban * This list has 3 medication(s) that are the same as other medications prescribed for you. Read the directions carefully, and ask your doctor or other care provider to review them with you. You might also be taking other medications not listed above. If you have questions about any of your other medications, talk to the person who prescribed them or your Primary Care Provider. Salina Tyler PAGER: [phone] July 27, 2024 12:58 PM [facility] 07-27-2024 Note HNO ID: [id number] Author: PARUL CLINE APRN.STORAGE MANAGEMENT CONSULTANT Service: ? Author Type: Nurse Employee Relations Advisor Type: Anesthesia Procedure Notes Filed: 07/27/2024 10:32 Note Text: ANESTHESIOLOGY PROCEDURE NOTE Airway General Information Procedure Start Time/Medication Administration: 07/27/2024 10:15 AM Procedure End Time: 07/27/2024 10:15 AM Patient location during procedure: OR Timeout Performed Pre-procedure: timeout performed Consent Obtained: Yes Patient identity confirmed: arm band, patient and family Staffing Anesthesiologist: Demar Barnett MD STORAGE MANAGEMENT CONSULTANT: Parul Cline APRN.STORAGE MANAGEMENT CONSULTANT Performed by: STORAGE MANAGEMENT CONSULTANT Indications and Patient Condition Indications for airway management: anesthesia and airway protection Preoxygenated: yes anesthesia circuit Patient position: sniffing Method: asleep Difficult Mask: No Airway Accessory: oral airway (edentulous) Final Airway Details Final airway type: endotracheal airway Final Endotracheal Airway: ETT Cuffed: yes Successful intubation technique: direct laryngoscopy Devices used: intubating stylet Endotracheal tube insertion site: oral Blade: Emili Blade size: #4 ETT size (mm): 7.5 Measured from: lips Measurement (cm): 22 Placement verified by: chest auscultation and capnometry Cormack-Lehane Classification: grade I - full view of glottis Number of attempts at approach: 1 SIGNATURE: Parul Cline APRN.STORAGE MANAGEMENT CONSULTANT PATIENT NAME: Shawna Prajapati DATE: July 27, 2024 TIME: 10:30 AM CSN: [id number] [facility] 07-20-2024 Telephone encounter Note Received medical records from [facility] Medical Records. Filiberto Haley LPN [facility] 07-20-2024 Miscellaneous Notes Received medical records from [facility] Medical Records. Filiberto Haley LPN documented in this encounter [facility] 07-20-2024 Instructions Kacie Palma APRN.ASSISTANT TODDLER TEACHER - 07/20/2024 12:53 PM EDT Images from the original note were not included. [facility] PATIENT PREOPERATIVE INSTRUCTIONS Michelle Castaneda MD has scheduled you for your procedure at this surgery center: [facility]: [phone] -- [address] [place] [address]. Please read below carefully for your personalized instructions. Dietary Restrictions: - No solid food after midnight. - You may have 12 ounces of clear liquids (water, clear juices such as apple juice or gatorade, carbonated beverages, clear tea, black coffee, jello) until 2 hours before scheduled arrival at facility. Medications: Unless instructed differently below, stay on all of your medications until your surgery. If you start any new medications after today's visit, please contact your surgeon. Pre-Surgery Med Instructions Medication Instructions fluticasone (FLONASE ALLERGY RELIEF) 50 mcg/actuation nasal spray IF needed albuterol HFA (PROVENTIL HFA, VENTOLIN HFA) 90 mcg/actuation inhaler IF needed montelukast (SINGULAIR) 10 mg tablet Take the day of surgery with a small sip of water omeprazole (PRILOSEC) 40 mg capsule Take the day of surgery with a small sip of water aspirin, enteric coated (ASPIRIN, ENTERIC COATED) 81 mg EC tablet Take the day of surgery with a small sip of water metoprolol tartrate, short acting, (LOPRESSOR) 25 mg tablet Take the day of surgery with a small sip of water albuterol (PROVENTIL) 2.5 mg /3 mL (0.083 %) nebulizer solution Take the day of surgery with a small sip of water albuterol HFA (PROVENTIL HFA, VENTOLIN HFA) 90 mcg/actuation inhaler Take the day of surgery with a small sip of water lisinopril (ZESTRIL) 10 mg tablet Take the day of surgery with a small sip of water chlorthalidone (HYGROTON) 25 mg tablet Do not take the day of surgery BREZTRI AEROSPHERE 160-9-4.8 mcg/actuation HFA aerosol inhaler Take the day of surgery with a small sip of water If you take any medications for erectile dysfunction-Cialis (Tadalafil), Levitra, Staxyn (Vardenafil) Viagra (Sildenenafil please do not take these for 48 hours before surgery. If you start any new medications after today's visit, please contact the surgeon's office. If you are currently using a zwar-qvk-vusb injectable or oral medication for diabetes or weight loss such as Dulaglutide (Trulicity), Exenatide (Byetta, Bydureon), Liraglutide (Victoza, Saxenda), Semaglutide (Ozempic, Wegovy, Rybelsus), or Tirzepatide (Mounjaro), the medicine should be stopped at least 7 days before surgery. These medicines can cause food to remain in your stomach for a very long time and increase the risks from surgery and anesthesia. Not stopping the medication for a long enough time may result in your surgery being rescheduled. Blood Thinning Medications: - Stop NSAIDS (Ibuprofen, Advil, Aleve, Motrin, Celebrex, Mobic, etc.) 7 days before surgery, as directed by your surgeon. - Do NOT stop aspirin or other anticoagulants without consulting with your professor of psychology or prescribing physician. - Stop ALL herbal and dietary supplements 7 days before surgery. - You may take Tylenol (Acetaminophen) or any of your pain medications that do not contain aspirin or NSAIDS as needed. Important Reminders: - Candy, mints, and tobacco products are NOT permitted the morning of surgery. - Hearing aids, dentures and glasses may be worn the morning of surgery. - NO jewelry, body piercings, makeup, hairpins or contacts are to be worn the day of surgery. If you develop symptoms such as a fever, cold, or flu, or have other changes to your health within TWO DAYS of scheduled surgery or the morning of surgery, please contact the surgery center above. Personal Belongings: -Please have photo ID and insurance cards. -If you do not have a copy of advance directives on file with us, please bring a copy with you on the day of surgery. - Leave ALL valuables and money at home or with family members. - Please bring high-quality footwear, such as sneakers, to the hospital for ambulating post-surgery. For Outpatient Procedures: - YOU MUST HAVE A RESPONSIBLE JAMMER OPERATOR TAKE YOU HOME. A LEGAL SPECIALIST OR MANAGER ORACLE RETAIL CANNOT BE MADE A RESPONSIBLE JAMMER OPERATOR. - We recommend that a responsible person stays with you overnight to take care of you. - You cannot stay in a hotel alone after outpatient surgery. You will not be permitted to have your surgery, if you do not have someone to take care of you. Arrival Time for Surgery: - The Surgery Center or hospital where you are having surgery will call the afternoon before surgery (or Friday for Friday surgery) with a scheduled arrival time. - If you have not heard by 4 pm, please contact the surgery center above. Please be aware that emergency situations arise, which may delay or change your surgical time. If this happens, we will notify you as soon as possible and regret any inconvenience. If you already have an Advance Directive, please fax a copy to [phone] or email to for it to be added to your chart. If you do not have an Advance Directive, you can find the appropriate form and more information at [email or web address]. We recommend that you complete the Advance Directive form found on the website and bring it with you the day of your surgery. It can be witnessed and scanned into your chart that day. Kacie Palma APRN.ASSISTANT TODDLER TEACHER documented in this encounter [facility] 07-20-2024 History and physical note Images from the original note were not included. [facility] HISTORY AND PHYSICAL EXAMINATION SERVICE DATE: 07/20/2024 SERVICE TIME: 11:45 AM PRIMARY CARE PHYSICIAN: Samir Jordan MD Assessment Patient has the following medical conditions which may affect sandra-operative course: COPD (chronic obstructive pulmonary disease) (HCC) Assessment: c/w inhaler usage, received pulmonary optimization below 07/20/2024 Dr. Escamilla, [facility] Pulmonary Assessment/Plan: 1. Preoperative pulmonary assessment -Patient is on maximal inhaled therapy -ARISCAT score 42 placing him at intermediate risk for postoperative pulmonary complications including pneumonia, atelectasis, bronchospasm -[facility] index 24 placing him at a 5% risk of postoperative respiratory failure -Continue Breztri -Perioperative therapy -Aggressive postoperative bronchopulmonary hygiene with flutter/Acapella device and Mucomyst 2. Severe COPD/GOLD stage 3 -Pulmonary function test shows severe obstruction with FEV1 of 40% -See #1 3. MARGARITO -Has history of severe sleep apnea previously on CPAP machine -Referral to sleep medicine -Recommend auto CPAP pre and postoperatively 4. Former cigarette smoker -Former smoker with sequelae of COPD -Continue abstinence -Pending updated lung cancer screening evaluation 5. Postnasal drip -Current mucus production likely related to his rhinorrhea with postnasal drip related to allergies -Restarted Singulair and recommend Flonase nasal spray Hypertension Assessment: controlled on rx Last 14 BP Last 14 Encounter BP Readings: Date: BP: 07/20/2024 128/58 07/20/2024 134/62 07/15/2024 116/70 05/31/2024 88/62 04/25/2024 82/60 04/14/2024 102/62 11/26/2023 100/64 11/11/2023 102/64 10/13/2023 100/62 10/11/2023 98/62 08/22/2023 118/78 07/30/2023 138/72 07/23/2023 116/73 07/17/2023 126/70 Hyperlipidemia Assessment: c/w statin 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 Assessment: hx stents, c/w daily ASA, statin, BB. PCP has been managing, hx homelessness 04/2020 Heart Cath Scanned into [employer] Echo Scanned into [employer] 01/06/202310/2022 Pharm/stress test CONCLUSIONS: 1. SPECT Perfusion Study: Normal. 2. There is no scintigraphic evidence for inducible ischemia. 3. No evidence of scarred myocardium. 4. Left ventricle is normal in size. The left ventricle systolic function is normal. 5. Right ventricle is normal in size. The right ventricle systolic function is normal. 6. This is a low risk scan. Gated Stress FBP LVEF % 71 08/16/2022 Ming Ballesteros MD ASSESSMENT/PLAN: 1. 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, unspecified vessel or lesion type - ICD9: 414.01, ICD10: I25.10 (primary diagnosis) His coronary artery disease appears clinically stable at this time as he has no complaints of angina or any anginal equivalents. Having said this he is very minimally active due to his severe shortness of breath from his COPD. Continue aspirin, beta-abran, DIMITRIS inhibitor, statin. Would recommend discontinuing Plavix at this time as he has fulfilled over 2 years of dual antiplatelet therapy. - ECG B/O W INTERP (MED OFFICE) 2. Encounter for other preprocedural examination - ICD9: V72.83, ICD10: Z01.818 He had stenting to his proximal left anterior descending artery and his proximal dominant left circumflex coronary artery. Since then he has had no complaints of chest pain or pressure, but he is not significantly active as he has severe shortness of breath on minimal exertion. Recommend further risk stratification with a nuclear medicine stress test. Those results are readily available, I will report back to his surgeon for the next step. - NM CARDIAC PERF STRESS/PHARM 3. Essential hypertension - ICD9: 401.9, ICD10: I10 - good control - Recommended regular aerobic exercise. - Recommend home blood pressure monitoring, to bring results in on next visit - Goal of BP <130/80 4. Mixed hyperlipidemia - ICD9: 272.2, ICD10: E78.2 - good control - Continue current medication. MARGARITO on CPAP Assessment: 2/2 hx homelessness no current PAP use, following pulmonary History of cigarette smoking Assessment: former [id number] smoker quitting in 2020 Lung nodules Assessment: under surveillance, following pulmonary Gastroesophageal reflux disease without esophagitis Assessment: controlled on rx Chronic deep vein thrombosis (DVT) of calf muscle vein of right lower extremity (HCC) Assessment: hx, tx with Xarelto, daily ASA currently Bilateral edema of lower extremity Assessment: controlled on rx Delusions (HCC) Assessment: hx, pt with very elaborate stories of past social/family hx Homelessness Assessment: hx Obesity, Class I, BMI 30-34.9 Assessment: Body mass index is 31.17 kg/m . PVD (peripheral vascular disease) Assessment: iliac artery aneurysm 2.6cm on CT ANESTHESIA FINDINGS: Intubation History: No history of difficult intubation Significant Anesthesia Considerations: none Airway History: No history of difficult airway Dumont Activity Status Index: METS: Climb a flight of stairs or walk up a hill (5.50 METs) DASI Score: 5.5 Patient denies any chest pain or undue shortness of breath with the above physical activity. Clinical Frailty Scale: 3. Well, with treated comorbid disease STOP-Bang Score: Snores loudly Has or is being treated for high blood pressure Patient over 50 years old Has a large neck Male patient Denies feeling tired, fatigued, or sleepy during the daytime Has not been observed to stop breathing or choking/gasping during sleep BMI less than or equal to 35 kg/m^2 STOP-Bang Score: 5 [id number] Score: Age: <65 Sex: male CHF history: No Hypertension history: Yes Stroke/TIA/thromboembolism history: No Vascular disease history: Yes Diabetes history: No [id number] Score: 2 ARISCAT Score: Age: 51-80 Preoperative SpO2: 91-95% Respiratory infection in the last month: No Preoperative anemia: No Surgical incision: upper abdominal Duration of surgery: <2 hrs Emergency procedure: No ARISCAT Score: 26 I - PHYSICAL EVALUATION AIRWAY Patient intubated: No. Tracheostomy tube not present Mallampati: II. TM distance: >3 FB. Neck ROM: full ROM without neurological symptoms. Mouth opening: adequate. Short neck: no. Thick neck: yes Dhillon present: yes Lip Bite Test: I Microretrognathia/Micronagthia/Rec essed Chin: No DENTAL Dentures, upper: complete. Dentures, lower: complete. II - ANESTHESIA PLAN Anesthetic Plan: other Beta Abran Monitoring Plan Post Procedure Analgesic Plan Prepared for Surgery: optimally prepared for surgery. CONSULTS: Patient does not require consults for optimization at this time Planned Anesthetic: other anesthesia choice The Following Tests/Procedures Have Been Initiated: No orders of the defined types were placed in this encounter. REASON FOR VISIT: Shawna Prajapati is a 59 year old male who is scheduled for Procedure(s): LAPAROSCOPIC HERNIORRHAPHY FOR REDUCIBLE VENTRAL LESS THAN 3cm (N/A) at the request of Dr. Michelle Castaneda for consultation. My final recommendation will be communicated back to the requesting physician by way of shared medical record or letter. Subjective The patient has the following: COVID-19 Immunization Status Completed or No Longer Recommended Covid-19 Vaccine (Series Information) Completed 04/14/2024 Imm Admin: COVID-19 vaccine, age 12+ yr (PFIZER-BIONTECH COMIRNATY) 03/27/2023 Imm Admin: COVID-19 vaccine, age 12+ yr (PFIZER-BIONTECH COMIRNATY) 12/11/2021 Imm Admin: COVID-19 vaccine, age 12+ yr, bivalent (MODERNA) Only the first 3 history entries have been loaded, but more history exists. CHIEF COMPLAINT: Pre-op exam HPI: Shawna Prajapati is a 59 year old seen for PAC due to scheduled above surgery because of a ventral hernia. 07/15/2024, Dr. Michelle Castaneda HPI: Shawna returns today with complaints of worsening discomfort in his ventral hernia site along with questionable issues in his inguinal regions. He most recently presented to [facility] emergency department with complaint of worsening abdominal pain on May 31, 2024. He was noted to be on Xarelto at that time. On exam he was noted to be tender in the mid abdominal region. CT scan of the abdomen pelvis demonstrated a 2.6 cm left iliac aneurysm was felt to be a fat-containing inguinal hernia but no ventral hernia. It was recommended he follow-up with vascular surgery for his iliac aneurysm. I initially seen Shawna when he was a 56 year old male with a complaint of a bulge and discomfort in his mid abdomen. The patient notes discomfort in this area with pressing on the supraumbilical area. The symptoms have increased, over the past 3 months. The patient notes no symptoms of bowel obstruction and denies nausea or vomiting. The patient was seen by his primary care physician who felt the patient has a hernia. Shawna was referred for evaluation and treatment. On evaluation I suspect that he had a supraumbilical hernia but got approved so. I was also concerned given his past history that he could have a degree of cirrhosis and/or ascites. I obtained a CT scan of the abdomen pelvis. This was obtained on July 15, 2022. This demonstrated: IMPRESSION: 1. Small supraumbilical hernia with haziness of the fat suggesting some degree of inflammation. 2. 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 Suggest nonemergent vascular consult. 3. Hepatic steatosis. Patient has a history of asthma COPD. Spirometry notes an FVC of 69% predicted and an FEV1 of 37% predicted with an FEV1 of 1.43 L. He notes a history of myocardial infarction 2020 with stent placement and is currently on Plavix. He states his professor of psychology was Dr. Hanson in [place] but has not seen him for some time and needs to establish with cardiology locally. Did obtain records from Dr. Hanson's office. We received a reply that the patient did not follow-up with Dr. Hanson after his initial stent placement in 2000. Upon further discussion with the patient today he states he has not seen a professor of psychology since discharge from the hospital for stent placement after his myocardial infarction The patient is being seen by me at the request of Dr. Samir Jordan MD for my opinion and advice regarding ventral hernia. He did establish with the [facility]. He had an echocardiogram in December 15, 2022. This demonstrated a 55 to 6% ejection fraction and otherwise no specific abnormalities. REVIEW OF SYSTEMS: General: No weight loss, malaise or fevers. Neurological: No history of TIA's, stroke, INCIDENT COMMANDER tumor, impaired sensorium, hemiplegia, paraplegia or quadraplegia. No neurological symptoms or problems. Respiratory: +lung nodules, under surveillance +former smoker Positive for: asthma (on rx and as needed), COPD (rx as needed), obstructive sleep apnea and CPAP/BiPAP noncompliant. Negative for: current cough, dyspnea, pneumonia within 6 weeks, tobacco use and URI < 2 weeks. Cardiovascular: Positive for: anticoagulation therapy (Plavix, ASA), CAD, DVT/PE, hyperlipidemia, hypertension and PVD (iliac artery aneurysm 2.6cm on CT) Patient's last office visit The following tests and/or procedures were performed: cardiac stents. Negative for: abdominal aortic aneurysm, AICD/PPM, angina, arrhythmia, atrial fibrillation, chest pain, CHF, congenital heart defect, recent [place], murmur/valvular heart disease, PTCA, open heart surgery and valve surgery. GI: Positive for: dysphagia and GERD Negative for: abdominal pain, hepatitis, irritable bowel syndrome, inflammatory bowel disease, liver disease, nausea, pancreatitis, vomiting and ETOH >2 drinks/day. : No history of dysuria, frequency or incontinence, stones or chronic kidney disease. No difficulty urinating, nocturia > 1 time per night or hematuria. Endocrine: No history of diabetes. Has not taken steroids within the past 30 days. No history of endocrinological symptoms or problems. Hematology: Positive for: chronic anti-coagulation/platelet meds. Patient is on anti-coagulation/platelet medication(s): Aspirin and Plavix. Negative for: anemia, bruises/bleeds easily and transfusion of at least 4 units within 72 hours prior to surgery. Oncology: No history of CA metastasis, chemo within 30 days, or radiotherapy within 90 days. No history of oncological symptoms or problems. Psych: +hx delusions per epic Musculoskeletal: +hx back surgery Positive for: swelling (on rx). Skin: Negative for lesions, rash and itching. Implanted Devices: No implanted devices. PAST MEDICAL HISTORY Diagnosis Date Asthma 1990 Chronic deep vein thrombosis (DVT) of calf muscle vein of right lower extremity ([facility]) 03/27/2023 COPD (chronic obstructive pulmonary disease) ([facility]) 2021 Coronary artery disease COVID-19 07/05/2021 EIC (epidermal inclusion cyst) 11/26/2019 Fibromyalgia 10/28/2016 Folliculitis 11/26/2019 GERD (gastroesophageal reflux disease) 01/27/2019 Hyperlipidemia 07/17/2021 Hypertension 07/17/2021 Inguinal hernia Irregular heartbeat NSTEMI (non-ST elevation myocardial infarction) ([facility]) 05/03/2020 [place], [place] MARGARITO on CPAP 2012 with nocturnal O2. Pancreatitis, chronic ([facility]) 09/07/2019 Seborrheic dermatitis 11/26/2019 Shingles outbreak 09/12/2021 Spinal stenosis, lumbar region with neurogenic claudication 11/20/2015 PAST SURGICAL HISTORY Procedure Laterality Date CC CORONARY STENT 05/04/2020 [facility] to [facility], [facility] HERNIA REPAIR HX Right 1964 inguinal HERNIA REPAIR HX Left 1990 inguinal LAMINECTOMY,LUMBAR 11/08/2021 Dr. Cristóbal Maldonado FAMILY HISTORY Adopted: Yes Family history unknown: Yes Social History Tobacco Use Smoking status: Former Current packs/day: 0.00 Average packs/day: 3.0 packs/day for 38.8 years (116.4 ttl pk-yrs) Types: Cigarettes Start date: 1981 Quit date: 05/02/2020 Years since quittin.2 Smokeless tobacco: Former Types: Snuff Quit date: 05/02/2020 Tobacco comments: Age 16-05/02/2019 Vaping Use Vaping status: Former Substance Use Topics Alcohol use: Not Currently Drug use: Never Prior to Admission medications as of 07/20/24 1302 Medication Sig Last Dose Taking fluticasone (FLONASE ALLERGY RELIEF) 50 mcg/actuation nasal spray Use 2 Sprays in each nostril once daily. Yes albuterol HFA (PROVENTIL HFA, VENTOLIN HFA) 90 mcg/actuation inhaler Inhale 2 Puffs as instructed every 4 hours as needed. Yes montelukast (SINGULAIR) 10 mg tablet Take 1 tablet by mouth daily at bedtime. Yes omeprazole (PRILOSEC) 40 mg capsule Take 1 capsule by mouth once daily. Yes aspirin, enteric coated (ASPIRIN, ENTERIC COATED) 81 mg EC tablet Take 1 tablet by mouth once daily. Yes metoprolol tartrate, short acting, (LOPRESSOR) 25 mg tablet Take 1 tablet by mouth two times a day. Yes albuterol (PROVENTIL) 2.5 mg /3 mL (0.083 %) nebulizer solution Use one vial every 4 hours as needed for wheezing/shortness of breath. Use over 5-15minutes. Yes albuterol HFA (PROVENTIL HFA, VENTOLIN HFA) 90 mcg/actuation inhaler Inhale 2 Puffs as instructed every 4 hours as needed for wheezing/shortness of breath. Yes lisinopril (ZESTRIL) 10 mg tablet Take 1 tablet by mouth once daily. Yes chlorthalidone (HYGROTON) 25 mg tablet Take 1 tablet by mouth once daily. Yes BREZTRI AEROSPHERE 160-9-4.8 mcg/actuation HFA aerosol inhaler INHALE TWO (2) PUFFS BY MOUTH TWICE DAILY INSTRUCTED Yes No medication comments found. ALLERGIES Allergen Reactions Cabbage Other: See Comments dysphagia Lettuce Other: See Comments dysphagia Onion Extract Vomiting Garlic Oil GI Upset Objective PHYSICAL EXAM: General: alert and oriented (x3), healthy appearance and obese. Pertinent negatives noted - not distressed. Skin: normal color, no rash or lesions. HEENT: EOM intact and pupils equal round. Pertinent negatives noted - no carotid bruit. Cardiovascular: regular rate and rhythm, normal S1 and S2, no rub, murmurs, or gallop. Respiratory: normal breath sounds, no wheezes or crackles. No chest wall deformity or tenderness. Abdomen: soft. Pertinent negatives noted - not tender. Extremities: no deformity, no edema or tenderness, no joint swelling or clubbing. Neurological: normal cognition and motor skills. Gait normal. No weakness or sensory deficit. PAIN ASSESSMENT: VITALS: BP 134/62 Pulse 52 Temp (Src) 98.2 (Temporal) Resp 14 Ht 5' 7 (1.70m) Wt 199 lb (90.3kg) SpO2 94% BMI 31.16 kg/(m^2). Diagnostic tests reviewed for today's visit: Lab Value Units Date High Low HB 11.4 g/dL 07/20/2024 17.0 13.0 HCT 39.8 % 07/20/2024 51.0 39.0 WBC 11.95 k/uL 07/20/2024 11.00 3.70 PLT 384 k/uL 07/20/2024 400 150 NA 137 mmol/L 07/20/2024 144 136 K 4.7 mmol/L 07/20/2024 5.1 3.7 GLUC 100 mg/dL 07/20/2024 99 74 BUN 32 mg/dL 07/20/2024 24 9 CREAT 1.43 mg/dL 07/20/2024 1.22 0.73 PTSEC No results within date range. INR No results within date range. APTT No results within date range. ALT 12 U/L 04/14/2024 54 10 AST 20 U/L 04/14/2024 40 14 TBILI 0.4 mg/dL 04/14/2024 1.3 0.2 TSH No results within date range. Lab Value Units Date High Low HCGQT No results within date range. UHCG No results within date range. HCG, BODY* No results within date range. Lab Value Units Date High Low ABORHD No results within date range. ABSCREEN No results within date range. No results found for: HBA1C Recent Results (from the past 8760 hours) ECG COMPLETE Collection Time: 05/31/24 5:52 PM Result Value Ventricular Rate 63 Atrial Rate 63 P-R Interval 158 QRS Duration 90 QT Interval 394 QTC Calculation (Bazett) 403 Calculated P Warren 37 Calculated R Warren 84 Calculated T Warren 59 Impression NORMAL SINUS RHYTHM NORMAL ECG Confirmed by MD EDITH, QARAB ([id number]) on 06/04/2024 9:58:45 AM No results found for this or any previous visit (from the past 12620 hours). Instructions Given to Patient: Instructions located in the after visit summary. Patient given verbal and written preop instructions and voices comprehension and compliance. SIGNATURE: Kacie Palma APRN.CNP PATIENT NAME: Shawna Prajapati DATE: July 20, 2024 TIME: 12:46 PM PAGER/CONTACT #: [facility] 07-20-2024 History and physical note Images from the original note were not included. [facility] HISTORY AND PHYSICAL EXAMINATION SERVICE DATE: 07/20/2024 SERVICE TIME: 11:45 AM PRIMARY CARE PHYSICIAN: Samir Jordan MD Assessment Patient has the following medical conditions which may affect sandra-operative course: COPD (chronic obstructive pulmonary disease) ([facility]) Assessment: c/w inhaler usage, received pulmonary optimization below 07/20/2024 Dr. Escamilla, [facility] Pulmonary Assessment/Plan: 1. Preoperative pulmonary assessment -Patient is on maximal inhaled therapy -ARISCAT score 42 placing him at intermediate risk for postoperative pulmonary complications including pneumonia, atelectasis, bronchospasm -Arozullah respiratory failure index 24 placing him at a 5% risk of postoperative respiratory failure -Continue Breztri -Perioperative therapy -Aggressive postoperative bronchopulmonary hygiene with flutter/Acapella device and Mucomyst 2. Severe COPD/GOLD stage 3 -Pulmonary function test shows severe obstruction with FEV1 of 40% -See #1 3. MARGARITO -Has history of severe sleep apnea previously on CPAP machine -Referral to sleep medicine -Recommend auto CPAP pre and postoperatively 4. Former cigarette smoker -Former smoker with sequelae of COPD -Continue abstinence -Pending updated lung cancer screening evaluation 5. Postnasal drip -Current mucus production likely related to his rhinorrhea with postnasal drip related to allergies -Restarted Singulair and recommend Flonase nasal spray Hypertension Assessment: controlled on rx Last 14 BP Last 14 Encounter BP Readings: Date: BP: 07/20/2024 128/58 07/20/2024 134/62 07/15/2024 116/70 05/31/2024 88/62 04/25/2024 82/60 04/14/2024 102/62 11/26/2023 100/64 11/11/2023 102/64 10/13/2023 100/62 10/11/2023 98/62 08/22/2023 118/78 07/30/2023 138/72 07/23/2023 116/73 07/17/2023 126/70 Hyperlipidemia Assessment: c/w statin 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 Assessment: hx stents, c/w daily ASA, statin, BB. PCP has been managing, hx homelessness 04/2020 Heart Cath Scanned into [facility] Echo Scanned into Epic 01/06/202310/2022 Pharm/stress test CONCLUSIONS: 1. SPECT Perfusion Study: Normal. 2. There is no scintigraphic evidence for inducible ischemia. 3. No evidence of scarred myocardium. 4. Left ventricle is normal in size. The left ventricle systolic function is normal. 5. Right ventricle is normal in size. The right ventricle systolic function is normal. 6. This is a low risk scan. Gated Stress FBP LVEF % 71 08/16/2022 Ming Ballesteros MD ASSESSMENT/PLAN: 1. 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, unspecified vessel or lesion type - ICD9: 414.01, ICD10: I25.10 (primary diagnosis) His coronary artery disease appears clinically stable at this time as he has no complaints of angina or any anginal equivalents. Having said this he is very minimally active due to his severe shortness of breath from his COPD. Continue aspirin, beta-abran, DIMITRIS inhibitor, statin. Would recommend discontinuing Plavix at this time as he has fulfilled over 2 years of dual antiplatelet therapy. - ECG B/O W INTERP (MED OFFICE) 2. Encounter for other preprocedural examination - ICD9: V72.83, ICD10: Z01.818 He had stenting to his proximal left anterior descending artery and his proximal dominant left circumflex coronary artery. Since then he has had no complaints of chest pain or pressure, but he is not significantly active as he has severe shortness of breath on minimal exertion. Recommend further risk stratification with a nuclear medicine stress test. Those results are readily available, I will report back to his surgeon for the next step. - NM CARDIAC PERF STRESS/PHARM 3. Essential hypertension - ICD9: 401.9, ICD10: I10 - good control - Recommended regular aerobic exercise. - Recommend home blood pressure monitoring, to bring results in on next visit - Goal of BP <130/80 4. Mixed hyperlipidemia - ICD9: 272.2, ICD10: E78.2 - good control - Continue current medication. MARGARITO on CPAP Assessment: 2/2 hx homelessness no current PAP use, following pulmonary History of cigarette smoking Assessment: former [id number] smoker quitting in 2020 Lung nodules Assessment: under surveillance, following pulmonary Gastroesophageal reflux disease without esophagitis Assessment: controlled on rx Chronic deep vein thrombosis (DVT) of calf muscle vein of right lower extremity (HCC) Assessment: hx, tx with Xarelto, daily ASA currently Bilateral edema of lower extremity Assessment: controlled on rx Delusions (HCC) Assessment: hx, pt with very elaborate stories of past social/family hx Homelessness Assessment: hx Obesity, Class I, BMI 30-34.9 Assessment: Body mass index is 31.17 kg/m . PVD (peripheral vascular disease) Assessment: iliac artery aneurysm 2.6cm on CT ANESTHESIA FINDINGS: Intubation History: No history of difficult intubation Significant Anesthesia Considerations: none Airway History: No history of difficult airway Dumont Activity Status Index: METS: Climb a flight of stairs or walk up a hill (5.50 METs) DASI Score: 5.5 Patient denies any chest pain or undue shortness of breath with the above physical activity. Clinical Frailty Scale: 3. Well, with treated comorbid disease STOP-Bang Score: Snores loudly Has or is being treated for high blood pressure Patient over 50 years old Has a large neck Male patient Denies feeling tired, fatigued, or sleepy during the daytime Has not been observed to stop breathing or choking/gasping during sleep BMI less than or equal to 35 kg/m^2 STOP-Bang Score: 5 [id number] Score: Age: <65 Sex: male CHF history: No Hypertension history: Yes Stroke/TIA/thromboembolism history: No Vascular disease history: Yes Diabetes history: No [id number] Score: 2 ARISCAT Score: Age: 51-80 Preoperative SpO2: 91-95% Respiratory infection in the last month: No Preoperative anemia: No Surgical incision: upper abdominal Duration of surgery: <2 hrs Emergency procedure: No ARISCAT Score: 26 I - PHYSICAL EVALUATION AIRWAY Patient intubated: No. Tracheostomy tube not present Mallampati: II. TM distance: >3 FB. Neck ROM: full ROM without neurological symptoms. Mouth opening: adequate. Short neck: no. Thick neck: yes Dhillon present: yes Lip Bite Test: I Microretrognathia/Micronagthia/Rec essed Chin: No DENTAL Dentures, upper: complete. Dentures, lower: complete. II - ANESTHESIA PLAN Anesthetic Plan: other Beta Abran Monitoring Plan Post Procedure Analgesic Plan Prepared for Surgery: optimally prepared for surgery. CONSULTS: Patient does not require consults for optimization at this time Planned Anesthetic: other anesthesia choice The Following Tests/Procedures Have Been Initiated: No orders of the defined types were placed in this encounter. REASON FOR VISIT: Shawna Prajapati is a 59 year old male who is scheduled for Procedure(s): LAPAROSCOPIC HERNIORRHAPHY FOR REDUCIBLE VENTRAL LESS THAN 3cm (N/A) at the request of Dr. Michelle Castaneda for consultation. My final recommendation will be communicated back to the requesting physician by way of shared medical record or letter. Subjective The patient has the following: COVID-19 Immunization Status Completed or No Longer Recommended Covid-19 Vaccine (Series Information) Completed 04/14/2024 Imm Admin: COVID-19 vaccine, age 12+ yr (PFIZER-BIONTECH COMIRNATY) 03/27/2023 Imm Admin: COVID-19 vaccine, age 12+ yr (PFIZER-BIONTECH COMIRNATY) 12/11/2021 Imm Admin: COVID-19 vaccine, age 12+ yr, bivalent (MODERNA) Only the first 3 history entries have been loaded, but more history exists. CHIEF COMPLAINT: Pre-op exam HPI: Shawna Prajapati is a 59 year old seen for PAC due to scheduled above surgery because of a ventral hernia. 07/15/2024, Dr. Michelle Castaneda HPI: Shawna returns today with complaints of worsening discomfort in his ventral hernia site along with questionable issues in his inguinal regions. He most recently presented to [facility] emergency department with complaint of worsening abdominal pain on May 31, 2024. He was noted to be on Xarelto at that time. On exam he was noted to be tender in the mid abdominal region. CT scan of the abdomen pelvis demonstrated a 2.6 cm left iliac aneurysm was felt to be a fat-containing inguinal hernia but no ventral hernia. It was recommended he follow-up with vascular surgery for his iliac aneurysm. I initially seen Shawna when he was a 56 year old male with a complaint of a bulge and discomfort in his mid abdomen. The patient notes discomfort in this area with pressing on the supraumbilical area. The symptoms have increased, over the past 3 months. The patient notes no symptoms of bowel obstruction and denies nausea or vomiting. The patient was seen by his primary care physician who felt the patient has a hernia. Shawna was referred for evaluation and treatment. On evaluation I suspect that he had a supraumbilical hernia but got approved so. I was also concerned given his past history that he could have a degree of cirrhosis and/or ascites. I obtained a CT scan of the abdomen pelvis. This was obtained on July 15, 2022. This demonstrated: IMPRESSION: 1. Small supraumbilical hernia with haziness of the fat suggesting some degree of inflammation. 2. 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 Suggest nonemergent vascular consult. 3. Hepatic steatosis. Patient has a history of asthma COPD. Spirometry notes an FVC of 69% predicted and an FEV1 of 37% predicted with an FEV1 of 1.43 L. He notes a history of myocardial infarction 2020 with stent placement and is currently on Plavix. He states his professor of psychology was Dr. Hanson in [place] but has not seen him for some time and needs to establish with cardiology locally. Did obtain records from Dr. Hanson's office. We received a reply that the patient did not follow-up with Dr. Hanson after his initial stent placement in 2000. Upon further discussion with the patient today he states he has not seen a professor of psychology since discharge from the hospital for stent placement after his myocardial infarction The patient is being seen by me at the request of Dr. Samir Jordan MD for my opinion and advice regarding ventral hernia. He did establish with the [facility] heart [facility]. He had an echocardiogram in December 15, 2022. This demonstrated a 55 to 6% ejection fraction and otherwise no specific abnormalities. REVIEW OF SYSTEMS: General: No weight loss, malaise or fevers. Neurological: No history of TIA's, stroke, INCIDENT COMMANDER tumor, impaired sensorium, hemiplegia, paraplegia or quadraplegia. No neurological symptoms or problems. Respiratory: +lung nodules, under surveillance +former smoker Positive for: asthma (on rx and as needed), COPD (rx as needed), obstructive sleep apnea and CPAP/BiPAP noncompliant. Negative for: current cough, dyspnea, pneumonia within 6 weeks, tobacco use and URI < 2 weeks. Cardiovascular: Positive for: anticoagulation therapy (Plavix, ASA), CAD, DVT/PE, hyperlipidemia, hypertension and PVD (iliac artery aneurysm 2.6cm on CT) Patient's last office visit The following tests and/or procedures were performed: cardiac stents. Negative for: abdominal aortic aneurysm, AICD/PPM, angina, arrhythmia, atrial fibrillation, chest pain, CHF, congenital heart defect, recent [place], murmur/valvular heart disease, PTCA, open heart surgery and valve surgery. GI: Positive for: dysphagia and GERD Negative for: abdominal pain, hepatitis, irritable bowel syndrome, inflammatory bowel disease, liver disease, nausea, pancreatitis, vomiting and ETOH >2 drinks/day. : No history of dysuria, frequency or incontinence, stones or chronic kidney disease. No difficulty urinating, nocturia > 1 time per night or hematuria. Endocrine: No history of diabetes. Has not taken steroids within the past 30 days. No history of endocrinological symptoms or problems. Hematology: Positive for: chronic anti-coagulation/platelet meds. Patient is on anti-coagulation/platelet medication(s): Aspirin and Plavix. Negative for: anemia, bruises/bleeds easily and transfusion of at least 4 units within 72 hours prior to surgery. Oncology: No history of CA metastasis, chemo within 30 days, or radiotherapy within 90 days. No history of oncological symptoms or problems. Psych: +hx delusions per epic Musculoskeletal: +hx back surgery Positive for: swelling (on rx). Skin: Negative for lesions, rash and itching. Implanted Devices: No implanted devices. PAST MEDICAL HISTORY Diagnosis Date Asthma 1990 Chronic deep vein thrombosis (DVT) of calf muscle vein of right lower extremity ([facility]) 03/27/2023 COPD (chronic obstructive pulmonary disease) ([facility]) 2021 Coronary artery disease COVID-19 07/05/2021 EIC (epidermal inclusion cyst) 11/26/2019 Fibromyalgia 10/28/2016 Folliculitis 11/26/2019 GERD (gastroesophageal reflux disease) 01/27/2019 Hyperlipidemia 07/17/2021 Hypertension 07/17/2021 Inguinal hernia Irregular heartbeat NSTEMI (non-ST elevation myocardial infarction) ([facility]) 05/03/2020 [place], [place] MARGARITO on CPAP 2012 with nocturnal O2. Pancreatitis, chronic ([facility]) 09/07/2019 Seborrheic dermatitis 11/26/2019 Shingles outbreak 09/12/2021 Spinal stenosis, lumbar region with neurogenic claudication 11/20/2015 PAST SURGICAL HISTORY Procedure Laterality Date CC CORONARY STENT 05/04/2020 [facility] to [facility], [facility] HERNIA REPAIR HX Right 1965 inguinal HERNIA REPAIR HX Left 1990 inguinal LAMINECTOMY,LUMBAR 11/08/2021 Dr. Cristóbal Maldonado FAMILY HISTORY Adopted: Yes Family history unknown: Yes Social History Tobacco Use Smoking status: Former Current packs/day: 0.00 Average packs/day: 3.0 packs/day for 38.8 years (116.4 ttl pk-yrs) Types: Cigarettes Start date: 1981 Quit date: 05/02/2020 Years since quittin.2 Smokeless tobacco: Former Types: Snuff Quit date: 05/02/2020 Tobacco comments: Age 16-05/02/2019 Vaping Use Vaping status: Former Substance Use Topics Alcohol use: Not Currently Drug use: Never Prior to Admission medications as of 07/20/24 1302 Medication Sig Last Dose Taking fluticasone (FLONASE ALLERGY RELIEF) 50 mcg/actuation nasal spray Use 2 Sprays in each nostril once daily. Yes albuterol HFA (PROVENTIL HFA, VENTOLIN HFA) 90 mcg/actuation inhaler Inhale 2 Puffs as instructed every 4 hours as needed. Yes montelukast (SINGULAIR) 10 mg tablet Take 1 tablet by mouth daily at bedtime. Yes omeprazole (PRILOSEC) 40 mg capsule Take 1 capsule by mouth once daily. Yes aspirin, enteric coated (ASPIRIN, ENTERIC COATED) 81 mg EC tablet Take 1 tablet by mouth once daily. Yes metoprolol tartrate, short acting, (LOPRESSOR) 25 mg tablet Take 1 tablet by mouth two times a day. Yes albuterol (PROVENTIL) 2.5 mg /3 mL (0.083 %) nebulizer solution Use one vial every 4 hours as needed for wheezing/shortness of breath. Use over 5-15minutes. Yes albuterol HFA (PROVENTIL HFA, VENTOLIN HFA) 90 mcg/actuation inhaler Inhale 2 Puffs as instructed every 4 hours as needed for wheezing/shortness of breath. Yes lisinopril (ZESTRIL) 10 mg tablet Take 1 tablet by mouth once daily. Yes chlorthalidone (HYGROTON) 25 mg tablet Take 1 tablet by mouth once daily. Yes BREZTRI AEROSPHERE 160-9-4.8 mcg/actuation HFA aerosol inhaler INHALE TWO (2) PUFFS BY MOUTH TWICE DAILY INSTRUCTED Yes No medication comments found. ALLERGIES Allergen Reactions Cabbage Other: See Comments dysphagia Lettuce Other: See Comments dysphagia Onion Extract Vomiting Garlic Oil GI Upset Objective PHYSICAL EXAM: General: alert and oriented (x3), healthy appearance and obese. Pertinent negatives noted - not distressed. Skin: normal color, no rash or lesions. HEENT: EOM intact and pupils equal round. Pertinent negatives noted - no carotid bruit. Cardiovascular: regular rate and rhythm, normal S1 and S2, no rub, murmurs, or gallop. Respiratory: normal breath sounds, no wheezes or crackles. No chest wall deformity or tenderness. Abdomen: soft. Pertinent negatives noted - not tender. Extremities: no deformity, no edema or tenderness, no joint swelling or clubbing. Neurological: normal cognition and motor skills. Gait normal. No weakness or sensory deficit. PAIN ASSESSMENT: VITALS: BP 134/62 Pulse 52 Temp (Src) 98.2 (Temporal) Resp 14 Ht 5' 7 (1.70m) Wt 199 lb (90.3kg) SpO2 94% BMI 31.16 kg/(m^2). Diagnostic tests reviewed for today's visit: Lab Value Units Date High Low HB 11.4 g/dL 07/20/2024 17.0 13.0 HCT 39.8 % 07/20/2024 51.0 39.0 WBC 11.95 k/uL 07/20/2024 11.00 3.70 PLT 384 k/uL 07/20/2024 400 150 NA 137 mmol/L 07/20/2024 144 136 K 4.7 mmol/L 07/20/2024 5.1 3.7 GLUC 100 mg/dL 07/20/2024 99 74 BUN 32 mg/dL 07/20/2024 24 9 CREAT 1.43 mg/dL 07/20/2024 1.22 0.73 PTSEC No results within date range. INR No results within date range. APTT No results within date range. ALT 12 U/L 04/14/2024 54 10 AST 20 U/L 04/14/2024 40 14 TBILI 0.4 mg/dL 04/14/2024 1.3 0.2 TSH No results within date range. Lab Value Units Date High Low HCGQT No results within date range. UHCG No results within date range. HCG, BODY* No results within date range. Lab Value Units Date High Low ABORHD No results within date range. ABSCREEN No results within date range. No results found for: HBA1C Recent Results (from the past 8760 hours) ECG COMPLETE Collection Time: 05/31/24 5:52 PM Result Value Ventricular Rate 63 Atrial Rate 63 P-R Interval 158 QRS Duration 90 QT Interval 394 QTC Calculation (Bazett) 403 Calculated P Warren 37 Calculated R Warren 84 Calculated T Warren 59 Impression NORMAL SINUS RHYTHM NORMAL ECG Confirmed by MD EDITH, QARAB ([id number]) on 06/04/2024 9:58:45 AM No results found for this or any previous visit (from the past 41508 hours). Instructions Given to Patient: Instructions located in the after visit summary. Patient given verbal and written preop instructions and voices comprehension and compliance. SIGNATURE: Kacie Palma APRN.CNP PATIENT NAME: Shawna Prajapati DATE: July 20, 2024 TIME: 12:46 PM PAGER/CONTACT #: documented in this encounter [facility] 07-20-2024 History of Present illness Narrative Images from the original note were not included. . [facility] Note Patient name: Shawna Prajapati PCP: Samir Jordan MD CC: Preoperative respiratory exam HPI: Shawna Prajapati 59 year old male former [id number] smoker quitting in 2020 with PMH significant for obesity, asthma COPD overlap syndrome/GOLD stage 3, GERD, HLD, HTN, MARGARITO requiring CPAP, CAD s/p stents, allergies requiring immunotherapy in the past pending ventral hernia repair. Current inhaled therapy consists of Breztri with as needed albuterol. He was homeless for a while so he no longer has his CPAP machine but has been compliant with his inhaler usage. Current issue with throat clearing and mucus production mainly related to postnasal drip. He has been having significant rhinorrhea as this is allergy season. He was previously on Singulair but has not had a refill in some time. He denies recent bronchitis or hospitalization for his COPD. He remains tobacco free and is pending updated lung cancer screening CT. He denies any wheezing, severe shortness of breath or chest pain. He uses his albuterol on a daily basis. DATA: PFT today: PFTs show severe obstruction without improvement postbronchodilator Imaging / Diagnostic Studies: 03/2024: Chest x-ray shows hyperinflation PAST MEDICAL HISTORY Diagnosis Date Asthma 1990 Chronic deep vein thrombosis (DVT) of calf muscle vein of right lower extremity ([facility]) 03/27/2023 COPD (chronic obstructive pulmonary disease) ([facility]) 2021 Coronary artery disease COVID-19 07/05/2021 EIC (epidermal inclusion cyst) 11/26/2019 Fibromyalgia 10/28/2016 Folliculitis 11/26/2019 GERD (gastroesophageal reflux disease) 01/27/2019 Hyperlipidemia 07/17/2021 Hypertension 07/17/2021 Inguinal hernia Irregular heartbeat NSTEMI (non-ST elevation myocardial infarction) ([facility]) 05/03/2020 [place], [place] MARGARITO on CPAP 2012 with nocturnal O2. Pancreatitis, chronic ([facility]) 09/07/2019 Seborrheic dermatitis 11/26/2019 Shingles outbreak 09/12/2021 Spinal stenosis, lumbar region with neurogenic claudication 11/20/2015 ALLERGIES Allergen Reactions Cabbage Other: See Comments dysphagia Lettuce Other: See Comments dysphagia Onion Extract Vomiting Garlic Oil GI Upset omeprazole (PRILOSEC) 40 mg capsule Take 1 capsule by mouth once daily. aspirin, enteric coated (ASPIRIN, ENTERIC COATED) 81 mg EC tablet Take 1 tablet by mouth once daily. metoprolol tartrate, short acting, (LOPRESSOR) 25 mg tablet Take 1 tablet by mouth two times a day. albuterol (PROVENTIL) 2.5 mg /3 mL (0.083 %) nebulizer solution Use one vial every 4 hours as needed for wheezing/shortness of breath. Use over 5-15minutes. albuterol HFA (PROVENTIL HFA, VENTOLIN HFA) 90 mcg/actuation inhaler Inhale 2 Puffs as instructed every 4 hours as needed for wheezing/shortness of breath. lisinopril (ZESTRIL) 10 mg tablet Take 1 tablet by mouth once daily. chlorthalidone (HYGROTON) 25 mg tablet Take 1 tablet by mouth once daily. BREZTRI AEROSPHERE 160-9-4.8 mcg/actuation HFA aerosol inhaler INHALE TWO (2) PUFFS BY MOUTH TWICE DAILY INSTRUCTED Social History Tobacco Use Smoking status: Former Current packs/day: 0.00 Average packs/day: 3.0 packs/day for 38.8 years (116.4 ttl pk-yrs) Types: Cigarettes Start date: 1981 Quit date: 05/02/2020 Years since quittin.2 Smokeless tobacco: Former Types: Snuff Quit date: 05/02/2020 Tobacco comments: Age 16-05/02/2019 Vaping Use Vaping status: Former Substance Use Topics Alcohol use: Not Currently Drug use: Never FAMILY HISTORY Adopted: Yes Family history unknown: Yes PAST SURGICAL HISTORY Procedure Laterality Date CC CORONARY STENT 05/04/2020 [facility] to LAD & Circ, [facility] HERNIA REPAIR HX Right 1964 inguinal HERNIA REPAIR HX Left 1990 inguinal LAMINECTOMY,LUMBAR 11/08/2021 Dr. Cristóbal Maldonado [facility], Social history, family history and surgical history reviewed and updated in EMR REVIEW OF SYSTEMS: CONSTITUTIONAL: No fevers, chills, nightsweats, unintended weight loss HEENT: Positive nasal congestion/sinus symptoms, allergy problems, postnasal drip CARDIOVASCULAR: No chest pain, dyspnea, palpitations, orthopnea, edema. PULM: See HPI GI: Abdominal pain NEURO: No balance problems, peripheral weakness/paresthesias or numbness of concern. MUSC-SKEL: No joint pain, swelling, or erythema. INTEGUMENTARY: No new skin changes ( PHYSICAL EXAMINATION: BP 128/58 Pulse 65 Resp 16 Ht 5' 7 (1.70m) Wt 201 lb (91.2kg) SpO2 93% BMI 31.47 kg/(m^2). General Appearance: Age-appropriate male, NAD. Skin: Skin color, texture, turgor normal, no suspicious rashes or lesions. Tattoos Head: Normocephalic, no masses, lesions, tenderness or abnormalities. Oropharynx: No oral lesions. Neck: No masses or adenopathy. Lungs: Not labored, normal to percussion, very diminished breath sounds, no wheezes. Heart: Regular rate and rhythm, no murmurs. Extremities: No significant edema, no clubbing. Assessment/Plan: 1. Preoperative pulmonary assessment -Patient is on maximal inhaled therapy -ARISCAT score 42 placing him at intermediate risk for postoperative pulmonary complications including pneumonia, atelectasis, bronchospasm -Arozullah respiratory failure index 24 placing him at a 5% risk of postoperative respiratory failure -Continue Breztri -Perioperative therapy -Aggressive postoperative bronchopulmonary hygiene with flutter/Acapella device and Mucomyst 2. Severe COPD/GOLD stage 3 -Pulmonary function test shows severe obstruction with FEV1 of 40% -See #1 3. MARGARITO -Has history of severe sleep apnea previously on CPAP machine -Referral to sleep medicine -Recommend auto CPAP pre and postoperatively 4. Former cigarette smoker -Former smoker with sequelae of COPD -Continue abstinence -Pending updated lung cancer screening evaluation 5. Postnasal drip -Current mucus production likely related to his rhinorrhea with postnasal drip related to allergies -Restarted Singulair and recommend Flonase nasal spray Homero Escamilla MD [facility] documented in this encounter [facility] 07-20-2024 Note HNO ID: [id number] Author: HOMERO ESCAMILLA MD Service: ? Author Type: Physician Type: Progress Notes Filed: 07/20/2024 11:14 Note Text: . Res[facility] Note Patient name: Shawna Prajapati PCP: Samir Jordan MD CC: Preoperative respiratory exam HPI: Shawna Prajapati 59 year old male former [id number] smoker quitting in 2020 with PMH significant for obesity, asthma COPD overlap syndrome/GOLD stage 3, GERD, HLD, HTN, MARGARITO requiring CPAP, CAD s/p stents, allergies requiring immunotherapy in the past pending ventral hernia repair. Current inhaled therapy consists of Breztri with as needed albuterol. He was homeless for a while so he no longer has his CPAP machine but has been compliant with his inhaler usage. Current issue with throat clearing and mucus production mainly related to postnasal drip. He has been having significant rhinorrhea as this is allergy season. He was previously on Singulair but has not had a refill in some time. He denies recent bronchitis or hospitalization for his COPD. He remains tobacco free and is pending updated lung cancer screening CT. He denies any wheezing, severe shortness of breath or chest pain. He uses his albuterol on a daily basis. DATA: PFT today: PFTs show severe obstruction without improvement postbronchodilator Imaging / Diagnostic Studies: 03/2024: Chest x-ray shows hyperinflation PAST MEDICAL HISTORY Diagnosis Date Asthma 1990 Chronic deep vein thrombosis (DVT) of calf muscle vein of right lower extremity ([facility]) 03/27/2023 COPD (chronic obstructive pulmonary disease) ([facility]) 2021 Coronary artery disease COVID-19 07/05/2021 EIC (epidermal inclusion cyst) 11/26/2019 Fibromyalgia 10/28/2016 Folliculitis 11/26/2019 GERD (gastroesophageal reflux disease) 01/27/2019 Hyperlipidemia 07/17/2021 Hypertension 07/17/2021 Inguinal hernia Irregular heartbeat NSTEMI (non-ST elevation myocardial infarction) ([facility]) 05/03/2020 [place], [place] MARGARITO on CPAP 2012 with nocturnal O2. Pancreatitis, chronic ([facility]) 09/07/2019 Seborrheic dermatitis 11/26/2019 Shingles outbreak 09/12/2021 Spinal stenosis, lumbar region with neurogenic claudication 11/20/2015 ALLERGIES Allergen Reactions Cabbage Other: See Comments dysphagia Lettuce Other: See Comments dysphagia Onion Extract Vomiting Garlic Oil GI Upset omeprazole (PRILOSEC) 40 mg capsule Take 1 capsule by mouth once daily. aspirin, enteric coated (ASPIRIN, ENTERIC COATED) 81 mg EC tablet Take 1 tablet by mouth once daily. metoprolol tartrate, short acting, (LOPRESSOR) 25 mg tablet Take 1 tablet by mouth two times a day. albuterol (PROVENTIL) 2.5 mg /3 mL (0.083 %) nebulizer solution Use one vial every 4 hours as needed for wheezing/shortness of breath. Use over 5-15minutes. albuterol HFA (PROVENTIL HFA, VENTOLIN HFA) 90 mcg/actuation inhaler Inhale 2 Puffs as instructed every 4 hours as needed for wheezing/shortness of breath. lisinopril (ZESTRIL) 10 mg tablet Take 1 tablet by mouth once daily. chlorthalidone (HYGROTON) 25 mg tablet Take 1 tablet by mouth once daily. BREZTRI AEROSPHERE 160-9-4.8 mcg/actuation HFA aerosol inhaler INHALE TWO (2) PUFFS BY MOUTH TWICE DAILY INSTRUCTED Social History Tobacco Use Smoking status: Former Current packs/day: 0.00 Average packs/day: 3.0 packs/day for 38.8 years (116.4 ttl pk-yrs) Types: Cigarettes Start date: 1981 Quit date: 05/02/2020 Years since quittin.2 Smokeless tobacco: Former Types: Snuff Quit date: 05/02/2020 Tobacco comments: Age 16-05/02/2019 Vaping Use Vaping status: Former Substance Use Topics Alcohol use: Not Currently Drug use: Never FAMILY HISTORY Adopted: Yes Family history unknown: Yes PAST SURGICAL HISTORY Procedure Laterality Date CC CORONARY STENT 05/04/2020 [facility] to LAD AND Circ, [facility] HERNIA REPAIR HX Right 1964 inguinal HERNIA REPAIR HX Left 1990 inguinal LAMINECTOMY,LUMBAR 11/08/2021 Dr. Cristóbal Maldonado [facility], Social history, family history and surgical history reviewed and updated in EMR REVIEW OF SYSTEMS: CONSTITUTIONAL: No fevers, chills, nightsweats, unintended weight loss HEENT: Positive nasal congestion/sinus symptoms, allergy problems, postnasal drip CARDIOVASCULAR: No chest pain, dyspnea, palpitations, orthopnea, edema. PULM: See HPI GI: Abdominal pain NEURO: No balance problems, peripheral weakness/paresthesias or numbness of concern. MUSC-SKEL: No joint pain, swelling, or erythema. INTEGUMENTARY: No new skin changes ( PHYSICAL EXAMINATION: BP 128/58 Pulse 65 Resp 16 Ht 5' 7 (1.70m) Wt 201 lb (91.2kg) SpO2 93% BMI 31.47 kg/(m2). General Appearance: Age-appropriate male, NAD. Skin: Skin color, texture, turgor normal, no suspicious rashes or lesions. Tattoos Head: Normocephalic, no masses, lesions, tenderness or abnormalities. Oropharynx: No oral le (more content not included)... [facility] 07-19-2024 Telephone encounter Note Spoke with patient about pre op appts Alissa Ochoa LPN [facility] 07-19-2024 Miscellaneous Notes Spoke with patient about pre op appts Alissa Ochoa LPN Tamy with [facility] notified of provider's message. Tamy voiced understanding. Clara Sue LPN Appointment in November is with Eliana Cortes for annual LCS follow up (booked as COPD), but CT is not scheduled. He was recently seen July 2023 with Catherine, he should schedule with Kat Zazueta in next available appointment. Noted that patient is scheduled for hernia repair on 07/27 with [facility] on 07/20. Scheduled pre op with EB and PFTs prior at 10AM. LM for patient re: same. [facility] notified. Alissa Ochoa LPN Can pulmonary nurse review and advise what if any testing would be needed prior to arranging a follow up with Pulmonary providers. Thank you 1st attempt to reschedule appt in November Called and left a voicemail for Tamy temitope Ahmadi to call back and ask for a nurse to receive the providers message. PSS please schedule Pt with Pulmonary. Win Pitt, STAR No. He needs to see pulmonary. Oxygen levels here have been good. Schedule follow up with Dr. Elena Escamilla or Cristóbal Desir. Last seen 07/30/23. November appointment is lung cancer screening, not COPD follow up. Tamy Ahmadi calls back to report that she has spoke with patient and he is not able to get in with Pulmonology until November 2024. Patient reported to Tamy that he is not able to sleep at night because of breathing. He reported to her that he feels he is dying a little each night. Tamy is asking if provider would consider ordering atleast the oxygen for patient until he can be seen by pulmonology if provider is not comfortable ordering the ventilator portion. Tamy reports she will fax over forms that would help qualify patient for the oxygen. Tamy requesting call back at [phone]. Rhea Fuentes RN Looking at chart patient used to see pulmonary and pcp advised needed to see pulmonary again but not scheduled. Called Tamy and she is aware nothing will be signed/ordered on our end and patient will need to schedule. PSS staff please call patient and schedule with pulmonology. Homero Carrasco MA Request information (original order, diagnosis, parameters, etc.) [facility] Morelos- reports pt had some equipment with them, then became homeless for a while. Pt now has a home and would like to have the oxygen he had previous. She will tell pt to schedule and appt with pcp, to get new testing for the oxygen. Reports pt also had a non invasive ventilator at night, and would like to have that back. Tamy states she can push that through electronically with a verbal from pcp. Please phone Tamy for verbal and with any questions: [phone] documented in this encounter [facility] 07-19-2024 Telephone encounter Note Tamy with [facility] notified of provider's message. Tamy voiced understanding. Clara Sue LPN [facility] 07-19-2024 Telephone encounter Note Appointment in November is with Eliana Cortes for annual LCS follow up (booked as COPD), but CT is not scheduled. He was recently seen July 2023 with Catherine, he should schedule with Kat Zazueta in next available appointment. Noted that patient is scheduled for hernia repair on 07/27 with [facility] on 07/20. Scheduled pre op with EB and PFTs prior at 10AM. LM for patient re: same. [facility] notified. Alissa Ochoa LPN [facility] 07-16-2024 Note HNO ID: [id number] Author: MICHELLE CASTANEDA MD Service: ? Author Type: Physician Type: Progress Notes Filed: 07/16/2024 21:48 Note Text: HISTORY AND PHYSICAL Shawna Ochoa Victorina 1965 REFERRING PHYSICIAN: Samir Jordan MD CHIEF COMPLAINT: Consult (Umb hernia) HPI: Shawna returns today with complaints of worsening discomfort in his ventral hernia site along with questionable issues in his inguinal regions. He most recently presented to [facility] emergency department with complaint of worsening abdominal pain on May 31, 2024. He was noted to be on Xarelto at that time. On exam he was noted to be tender in the mid abdominal region. CT scan of the abdomen pelvis demonstrated a 2.6 cm left iliac aneurysm was felt to be a fat-containing inguinal hernia but no ventral hernia. It was recommended he follow-up with vascular surgery for his iliac aneurysm. I initially seen Shawna when he was a 56 year old male with a complaint of a bulge and discomfort in his mid abdomen. The patient notes discomfort in this area with pressing on the supraumbilical area. The symptoms have increased, over the past 3 months. The patient notes no symptoms of bowel obstruction and denies nausea or vomiting. The patient was seen by his primary care physician who felt the patient has a hernia. Shawna was referred for evaluation and treatment. On evaluation I suspect that he had a supraumbilical hernia but got approved so. I was also concerned given his past history that he could have a degree of cirrhosis and/or ascites. I obtained a CT scan of the abdomen pelvis. This was obtained on July 15, 2022. This demonstrated: IMPRESSION: 1. Small supraumbilical hernia with haziness of the fat suggesting some degree of inflammation. 2. 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 Suggest nonemergent vascular consult. 3. Hepatic steatosis. Patient has a history of asthma COPD. Spirometry notes an FVC of 69% predicted and an FEV1 of 37% predicted with an FEV1 of 1.43 L. He notes a history of myocardial infarction 2020 with stent placement and is currently on Plavix. He states his professor of psychology was Dr. Hanson in [place] but has not seen him for some time and needs to establish with cardiology locally. Did obtain records from Dr. Hanson's office. We received a reply that the patient did not follow-up with Dr. Hanson after his initial stent placement in 2000. Upon further discussion with the patient today he states he has not seen a professor of psychology since discharge from the hospital for stent placement after his myocardial infarction The patient is being seen by me at the request of Dr. Samir Jordan MD for my opinion and advice regarding ventral hernia. He did establish with the [facility] heart group. He had an echocardiogram in December 15, 2022. This demonstrated a 55 to 6% ejection fraction and otherwise no specific abnormalities. PAST MEDICAL HISTORY Diagnosis Date Asthma 1990 Chronic deep vein thrombosis (DVT) of calf muscle vein of right lower extremity ([facility]) 03/27/2023 COPD (chronic obstructive pulmonary disease) ([facility]) 2021 Coronary artery disease COVID-19 07/05/2021 EIC (epidermal inclusion cyst) 11/26/2019 Fibromyalgia 10/28/2016 Folliculitis 11/26/2019 GERD (gastroesophageal reflux disease) 01/27/2019 Hyperlipidemia 07/17/2021 Hypertension 07/17/2021 Inguinal hernia Irregular heartbeat NSTEMI (non-ST elevation myocardial infarction) (HCC) 05/03/2020 [place], [place] MARGARITO on CPAP 2012 with nocturnal O2. Pancreatitis, chronic (HCC) 09/07/2019 Seborrheic dermatitis 11/26/2019 Shingles outbreak 09/12/2021 Spinal stenosis, lumbar region with neurogenic claudication 11/20/2015 PAST SURGICAL HISTORY Procedure Laterality Date CC CORONARY STENT 05/04/2020 [facility] to LAD AND Circ, [facility] HERNIA REPAIR HX Right 1964 inguinal HERNIA REPAIR HX Left 1990 inguinal LAMINECTOMY,LUMBAR 11/08/2021 Dr. Cristóbal Maldonado Current Outpatient Medications Medication Sig omeprazole (PRILOSEC) 40 mg capsule Take 1 capsule by mouth once daily. aspirin, enteric coated (ASPIRIN, ENTERIC COATED) 81 mg EC tablet Take 1 tablet by mouth once daily. metoprolol tartrate, short acting, (LOPRESSOR) 25 mg tablet Take 1 tablet by mouth two times a day. albuterol (PROVENTIL) 2.5 mg /3 mL (0.083 %) nebulizer solution Use one vial every 4 hours as needed for wheezing/shortness of breath. Use over 5-15minutes. albuterol HFA (PROVENTIL HFA, VENTOLIN HFA) 90 mcg/actuation inhaler Inhale 2 Puffs as instructed every 4 hours as needed for wheezing/shortness of breath. lisinopril (ZESTRIL) 10 mg tablet Take 1 tablet by mouth once daily. chlorthalidone (HYGROTON) 25 mg tablet Take 1 tablet by mouth once daily. BREZTRI AEROSPHERE 160-9-4.8 mcg/actuation HFA aerosol inhaler INHALE TWO (2) PUFFS BY MOUTH TWICE DAILY INSTRUCTED No cur (more content not included)... [facility] 07-16-2024 History of Present illness Narrative HISTORY AND PHYSICAL Shawna Ochoa Prajapati 1965 REFERRING PHYSICIAN: Samir Jordan MD CHIEF COMPLAINT: Consult (Umb hernia) HPI: Shawna returns today with complaints of worsening discomfort in his ventral hernia site along with questionable issues in his inguinal regions. He most recently presented to [facility] emergency department with complaint of worsening abdominal pain on May 31, 2024. He was noted to be on Xarelto at that time. On exam he was noted to be tender in the mid abdominal region. CT scan of the abdomen pelvis demonstrated a 2.6 cm left iliac aneurysm was felt to be a fat-containing inguinal hernia but no ventral hernia. It was recommended he follow-up with vascular surgery for his iliac aneurysm. I initially seen Shawna when he was a 56 year old male with a complaint of a bulge and discomfort in his mid abdomen. The patient notes discomfort in this area with pressing on the supraumbilical area. The symptoms have increased, over the past 3 months. The patient notes no symptoms of bowel obstruction and denies nausea or vomiting. The patient was seen by his primary care physician who felt the patient has a hernia. Shawna was referred for evaluation and treatment. On evaluation I suspect that he had a supraumbilical hernia but got approved so. I was also concerned given his past history that he could have a degree of cirrhosis and/or ascites. I obtained a CT scan of the abdomen pelvis. This was obtained on July 15, 2022. This demonstrated: IMPRESSION: 1. Small supraumbilical hernia with haziness of the fat suggesting some degree of inflammation. 2. 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 Suggest nonemergent vascular consult. 3. Hepatic steatosis. Patient has a history of asthma COPD. Spirometry notes an FVC of 69% predicted and an FEV1 of 37% predicted with an FEV1 of 1.43 L. He notes a history of myocardial infarction 2020 with stent placement and is currently on Plavix. He states his professor of psychology was Dr. Hanson in [place] but has not seen him for some time and needs to establish with cardiology locally. Did obtain records from Dr. Hanson's office. We received a reply that the patient did not follow-up with Dr. Hanson after his initial stent placement in 2000. Upon further discussion with the patient today he states he has not seen a professor of psychology since discharge from the hospital for stent placement after his myocardial infarction The patient is being seen by me at the request of Dr. Samir Jordan MD for my opinion and advice regarding ventral hernia. He did establish with the [facility] heart group. He had an echocardiogram in December 15, 2022. This demonstrated a 55 to 6% ejection fraction and otherwise no specific abnormalities. PAST MEDICAL HISTORY Diagnosis Date Asthma 1990 Chronic deep vein thrombosis (DVT) of calf muscle vein of right lower extremity ([facility]) 03/27/2023 COPD (chronic obstructive pulmonary disease) ([facility]) 2021 Coronary artery disease COVID-19 07/05/2021 EIC (epidermal inclusion cyst) 11/26/2019 Fibromyalgia 10/28/2016 Folliculitis 11/26/2019 GERD (gastroesophageal reflux disease) 01/27/2019 Hyperlipidemia 07/17/2021 Hypertension 07/17/2021 Inguinal hernia Irregular heartbeat NSTEMI (non-ST elevation myocardial infarction) ([facility]) 05/03/2020 [place], [place] MARGARITO on CPAP 2012 with nocturnal O2. Pancreatitis, chronic ([facility]) 09/07/2019 Seborrheic dermatitis 11/26/2019 Shingles outbreak 09/12/2021 Spinal stenosis, lumbar region with neurogenic claudication 11/20/2015 PAST SURGICAL HISTORY Procedure Laterality Date CC CORONARY STENT 05/04/2020 [facility] to [facility], [facility] HERNIA REPAIR HX Right 1964 inguinal HERNIA REPAIR HX Left 1990 inguinal LAMINECTOMY,LUMBAR 11/08/2021 Dr. Cristóbal Maldonado Current Outpatient Medications Medication Sig omeprazole (PRILOSEC) 40 mg capsule Take 1 capsule by mouth once daily. aspirin, enteric coated (ASPIRIN, ENTERIC COATED) 81 mg EC tablet Take 1 tablet by mouth once daily. metoprolol tartrate, short acting, (LOPRESSOR) 25 mg tablet Take 1 tablet by mouth two times a day. albuterol (PROVENTIL) 2.5 mg /3 mL (0.083 %) nebulizer solution Use one vial every 4 hours as needed for wheezing/shortness of breath. Use over 5-15minutes. albuterol HFA (PROVENTIL HFA, VENTOLIN HFA) 90 mcg/actuation inhaler Inhale 2 Puffs as instructed every 4 hours as needed for wheezing/shortness of breath. lisinopril (ZESTRIL) 10 mg tablet Take 1 tablet by mouth once daily. chlorthalidone (HYGROTON) 25 mg tablet Take 1 tablet by mouth once daily. BREZTRI AEROSPHERE 160-9-4.8 mcg/actuation HFA aerosol inhaler INHALE TWO (2) PUFFS BY MOUTH TWICE DAILY INSTRUCTED No current facility-administered medications for this visit. ALLERGIES: Cabbage, Lettuce, Onion Extract, and Garlic Oil PERSONAL HISTORY: Social History Tobacco Use Smoking status: Former Current packs/day: 0.00 Average packs/day: 3.0 packs/day for 38.8 years (116.4 ttl pk-yrs) Types: Cigarettes Start date: 1981 Quit date: 05/02/2020 Years since quittin.2 Smokeless tobacco: Former Types: Snuff Quit date: 05/02/2020 Tobacco comments: Age 16-05/02/2019 Vaping Use Vaping status: Former Substance Use Topics Alcohol use: Not Currently Drug use: Never FAMILY HISTORY: FAMILY HISTORY Adopted: Yes Family history unknown: Yes REVIEW OF SYMPTOMS: The review of systems data was entered by the nurse and reviewed by me There are no exam notes on file for this visit. PHYSICAL EXAMINATION: General: The patient is 56 year old male, well nourished, well hydrated in no acute distress. The patient is oriented to time, place, and person. VITALS: Blood pressure 116/70, pulse 80, temperature 36.8 C (98.2 F), temperature source Temporal Artery, resp. rate 17, weight 88 kg (194 lb), SpO2 95%. Body mass index is 30.38 kg/m . HEENT: Normal cephalic, ataumatic, pupils are equally round, sclera are anicteric, mucous membranes are moist, oropharynx is clear. Neck has no masses, asymmetry or lymphadenopathy. Thyroid is unremarkable. Respiratory: Somewhat distant auscultation. Normal respiratory excursion and pattern. Cardiac: Examination is regular rate and rhythm. Abdominal exam: Soft, tender in the supraumbilical area with what is felt to be relatively vague hernia in the location. No obvious hernia right of the umbilicus with no palpable masses. No obvious inguinal hernias Rectal exam: exam deferred Extremities: no clubbing, cyanosis or edema. No adenopathy. Other: LABORATORY VALUES: As Noted RADIOLOGIC STUDIES: As Noted Assessment IMPRESSION: Ventral hernia - supraumbilical space, history of coronary disease on Plavix, severe COPD, n questionable inguinal hernia PLAN: My plan is to perform a laparoscopic ventral hernia repair with mesh. The planned surgical procedure was discussed extensively with the patient. The risks, benefits, anticipated outcomes and possible complications were mentioned. Shawna fuchs that all hernia repair surgery has a chance of recurrence and/or chronic post operative pain. My staff has also explained the procedure in understandable terms and the patient was given the option to take printed material concerning the planned procedure. The patient had the opportunity to ask questions concerning the planned procedure. The patient freely consents to the planned procedure. I would plan to have him hold his Plavix for 5 days prior to the procedure. I plan to have the CT scan from [place] [id number] in the clinic system so I can review the actual images to compare this to his previous CT scan. The patient will need 1 pack evaluation given his prior cardiac history and moderately severe pulmonary disease. My findings have been communicated to Dr. Samir Jordan MD via shared medical record. This note will be forwarded to Dr. Samir Jordan MD. To see Dr. Ming Albarran in cardiology on August 16. I will forward this note to him. Diagnoses: (K43.7) Ventral hernia with gangrene (primary encounter diagnosis) Return to Clinic: The patient is instructed to follow-up with me 1 week postoperatively. Michelle Castaneda MD documented in this encounter [facility] 07-16-2024 Telephone encounter Note Can pulmonary nurse review and advise what if any testing would be needed prior to arranging a follow up with Pulmonary providers. Thank you [facility] 07-16-2024 Telephone encounter Note 1st attempt to reschedule appt in November [facility] 07-15-2024 Telephone encounter Note Called and left a voicemail for Tamy Ahmadi to call back and ask for a nurse to receive the providers message. PSS please schedule Pt with Pulmonary. Win Pitt RN [facility] 07-15-2024 Telephone encounter Note No. He needs to see pulmonary. Oxygen levels here have been good. Schedule follow up with Dr. Elena Escamilla or Cristóbal Desir. Last seen 07/30/23. [place] appointment is lung cancer screening, not COPD follow up. [facility] 07-15-2024 Instructions Michelle Castaneda MD - 07/15/2024 3:28 PM EDT The following instructions are important for you related to your office visit today with the [facility]. INSTRUCTIONS FOR YOUR SURGICAL PROCEDURE - HERNIA - NON SMOKER We discussed that a hernia is a weakness in the fascia - the strength layer of the abdominal wall. We discussed would rather you hernias repaired with mesh or sutures, open or laparoscopically, it is important to allow your bodies collagen to form a strong permanent repair to minimize the risk of hernia recurrence. It is very important that no heavy lifting be performed for 8 weeks following surgery. We discussed the risks and benefits of your planned procedure. If you have any additional questions, please contact our office immediately. Preadmission testing is an important part of preparation for your procedure. All laboratory studies, x-rays, and additional testing must be available for the preadmission testing staff to help ready you for surgery. You should not take your xeralto blood thinners for 5 days prior to surgery. You should not have anything to eat or drink after midnight the night prior to your surgery. You should wear comfortable clothes for your procedure. Please understand that the operating room schedule is an estimated time for your surgical procedure. Your procedure may be somewhat earlier or somewhat later than the estimated time. You'll be discharged home with postoperative instructions and typically pain medications. Please be aware that many pain medications may cause nausea. You should typically eat light foods as you take your pain medications. Your dressing will usually be able to be removed two to three days following surgery. You may typically shower three days after surgery. If you have Steri-Strips on your incision (little white tapes) you should leave these in place until they fall off. You will typically have a followup office visit 1 to 2 weeks after surgery. Again, if you have any difficulties or concerns, contact our office immediately. If you note any additional difficulties, questions, or concerns, you should contact our office immediately @ [phone] and ask to be transferred to the General Surgery department. documented in this encounter [facility] 07-15-2024 Telephone encounter Note Tamy with [facility] calls back to report that she has spoke with patient and he is not able to get in with Pulmonology until November 2024. Patient reported to Tamy that he is not able to sleep at night because of breathing. He reported to her that he feels he is dying a little each night. Tamy is asking if provider would consider ordering atleast the oxygen for patient until he can be seen by pulmonology if provider is not comfortable ordering the ventilator portion. Tamy reports she will fax over forms that would help qualify patient for the oxygen. Tamy requesting call back at [phone]. Rhea Fuentes RN [facility] 07-13-2024 Telephone encounter Note The patient has been identified by name and date of : Yes, pharmacy Caregiver verified no other encounters exist for this prescription request: Yes Caregiver confirmed with patient/requestor that no other refills are due, in the near future, with this provider at this time: Yes The last office visit in the department: 05/31/2024 Does the patient have a future office visit with this provider/department: No no future appt scheduled Requested Prescriptions Pending Prescriptions Disp Refills omeprazole (PRILOSEC) 40 mg capsule 30 capsule 5 Sig: Take 1 capsule by mouth once daily. Hiram Hair LPN July 13, 2024 11:04 AM [facility] 07-13-2024 Miscellaneous Notes The patient has been identified by name and date of : Yes, pharmacy Caregiver verified no other encounters exist for this prescription request: Yes Caregiver confirmed with patient/requestor that no other refills are due, in the near future, with this provider at this time: Yes The last office visit in the department: 05/31/2024 Does the patient have a future office visit with this provider/department: No no future appt scheduled Requested Prescriptions Pending Prescriptions Disp Refills omeprazole (PRILOSEC) 40 mg capsule 30 capsule 5 Sig: Take 1 capsule by mouth once daily. Hiram Hair LPN July 13, 2024 11:04 AM documented in this encounter [facility] 2024 Telephone encounter Note Looking at chart patient used to see pulmonary and pcp advised needed to see pulmonary again but not scheduled. Called Tamy and she is aware nothing will be signed/ordered on our end and patient will need to schedule. PSS staff please call patient and schedule with pulmonology. Homero Carrasco MA [facility] 07-08-2024 Telephone encounter Note Request information (original order, diagnosis, parameters, etc.) [facility] 07-08-2024 Telephone encounter Note [facility]- reports pt had some equipment with them, then became homeless for a while. Pt now has a home and would like to have the oxygen he had previous. She will tell pt to schedule and appt with pcp, to get new testing for the oxygen. Reports pt also had a non invasive ventilator at night, and would like to have that back. Tamy states she can push that through electronically with a verbal from pcp. Please phone Tamy for verbal and with any questions: [phone] [facility] 05-31-2024 Note HNO ID: [id number] Author: SAMIR JORDAN MD Service: ? Author Type: Physician Type: Progress Notes Filed: 05/31/2024 18:46 Note Text: This note was created using [employer]. Subjective Patient presents with: F/U 6 months Shawna Prajapati is a 58 year old male. He complained constant sharp moderate to severe abdominal pain for one month, that woke him up from sleep at times, occasionally radiating to his ribs. There was no specific trigger or relation to oral intake. He had non bloody diarrhea this weekend, and may have developed a hemorrhoid. His abdomen was feeling distended. Other symptoms were ongoing dyspnea and cough. He was diagnosed with Covid and chest X-ray was negative then. Review of Systems Constitutional: Positive for fatigue. Negative for chills, diaphoresis and fever. HENT: Negative for congestion and sore throat. Respiratory: Positive for cough, chest tightness and shortness of breath. Cardiovascular: Negative for chest pain, palpitations and leg swelling. Gastrointestinal: Positive for abdominal distention, abdominal pain and diarrhea. Negative for blood in stool, constipation, nausea and vomiting. Genitourinary: Negative for difficulty urinating and dysuria. Neurological: Positive for light-headedness. Negative for headaches. 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 Muscle Vein of Right Lower Extremity (Hcc) Gastroesophageal Reflux Disease Without Esophagitis Delusions (Hcc) Bilateral Edema of Lower Extremity Constipation Lung Nodules History of Cigarette Smoking Social History Tobacco Use Smoking status: Former Current packs/day: 0.00 Average packs/day: 3.0 packs/day for 38.8 years (116.4 ttl pk-yrs) Types: Cigarettes Start date: 1981 Quit date: 05/02/2020 Years since quittin.0 Smokeless tobacco: Former Types: Snuff Quit date: 05/02/2020 Tobacco comments: Age 16-05/02/2019 Vaping Use Vaping status: Former Substance Use Topics Alcohol use: Not Currently Drug use: Never Current Outpatient Medications Medication Sig aspirin, enteric coated (ASPIRIN, ENTERIC COATED) 81 mg EC tablet Take 1 tablet by mouth once daily. metoprolol tartrate, short acting, (LOPRESSOR) 25 mg tablet Take 1 tablet by mouth two times a day. albuterol (PROVENTIL) 2.5 mg /3 mL (0.083 %) nebulizer solution Use one vial every 4 hours as needed for wheezing/shortness of breath. Use over 5-15minutes. albuterol HFA (PROVENTIL HFA, VENTOLIN HFA) 90 mcg/actuation inhaler Inhale 2 Puffs as instructed every 4 hours as needed for wheezing/shortness of breath. lisinopril (ZESTRIL) 10 mg tablet Take 1 tablet by mouth once daily. chlorthalidone (HYGROTON) 25 mg tablet Take 1 tablet by mouth once daily. omeprazole (PRILOSEC) 40 mg capsule Take 1 capsule by mouth once daily. BREZTRI AEROSPHERE 160-9-4.8 mcg/actuation HFA aerosol inhaler INHALE TWO (2) PUFFS BY MOUTH TWICE DAILY INSTRUCTED benzonatate (TESSALON PERLE) 100 mg capsule Take 2 capsules by mouth three times a day as needed. (Patient not taking: Reported on 05/31/2024) guaiFENesin (MUCINEX) 600 mg 12 hr tablet Take 2 tablets by mouth two times a day. (Patient not taking: Reported on 05/31/2024) cyclobenzaprine (FLEXERIL) 10 mg tablet Take 1 tablet by mouth at bedtime as needed for muscle spasm. (Patient not taking: Reported on 05/31/2024) polyethylene glycol 3350 (MIRALAX) 17 gram packet Take 1 Packet by mouth once daily. Dissolve dose in 4 - 8 ounces of liquid (Patient not taking: Reported on 05/31/2024) nystatin (MYCOSTATIN) 100,000 unit/mL suspension Take 5 mL by mouth four times daily. 1tsp swish in mouth for several minutes, then swallow (or expectorate) 4 times daily until gone. (Patient not taking: Reported on 05/31/2024) No current facility-administered medications for this visit. Objective BP 88/62 (BP Site: Left Arm, BP Position: Sitting, BP Cuff Size: Large Adult) Pulse 72 Temp 36.9 ?C (98.5 ?F) (Temporal) Resp 24 Wt 96.3 kg (212 lb 4.9 oz) SpO2 94% BMI 33.25 kg/m? Physical Exam Constitutional: General: He is not in acute distress. Appearance: He is ill-appearing. He is not diaphoretic. HENT: Nose: No congestion or rhinorrhea. Mouth/Throat: Mouth: Mucous membranes are moist. Eyes: Conjunctiva/sclera: Conjunctivae normal. Cardiovascular: Rate and Rhythm: Normal rate and regular rhythm. Heart sounds: No murmur heard. No gallop. Pulmonary: Effort: No respiratory distress. Breath sounds: Rhonchi present. No wheezing or rales. Abdominal: General: Bowel sounds are decreased. There is distension. Tenderness: There is generalized abdominal tenderness. There is guarding and (more content not included)... [facility] 05-31-2024 History of Present illness Narrative This note was created using [employer]. Subjective Patient presents with: F/U 6 months Shawna Prajapati is a 58 year old male. He complained constant sharp moderate to severe abdominal pain for one month, that woke him up from sleep at times, occasionally radiating to his ribs. There was no specific trigger or relation to oral intake. He had non bloody diarrhea this weekend, and may have developed a hemorrhoid. His abdomen was feeling distended. Other symptoms were ongoing dyspnea and cough. He was diagnosed with Covid and chest X-ray was negative then. Review of Systems Constitutional: Positive for fatigue. Negative for chills, diaphoresis and fever. HENT: Negative for congestion and sore throat. Respiratory: Positive for cough, chest tightness and shortness of breath. Cardiovascular: Negative for chest pain, palpitations and leg swelling. Gastrointestinal: Positive for abdominal distention, abdominal pain and diarrhea. Negative for blood in stool, constipation, nausea and vomiting. Genitourinary: Negative for difficulty urinating and dysuria. Neurological: Positive for light-headedness. Negative for headaches. 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 Muscle Vein of Right Lower Extremity (Hcc) Gastroesophageal Reflux Disease Without Esophagitis Delusions (Hcc) Bilateral Edema of Lower Extremity Constipation Lung Nodules History of Cigarette Smoking Social History Tobacco Use Smoking status: Former Current packs/day: 0.00 Average packs/day: 3.0 packs/day for 38.8 years (116.4 ttl pk-yrs) Types: Cigarettes Start date: 1981 Quit date: 05/02/2020 Years since quittin.0 Smokeless tobacco: Former Types: Snuff Quit date: 05/02/2020 Tobacco comments: Age 16-05/02/2019 Vaping Use Vaping status: Former Substance Use Topics Alcohol use: Not Currently Drug use: Never Current Outpatient Medications Medication Sig aspirin, enteric coated (ASPIRIN, ENTERIC COATED) 81 mg EC tablet Take 1 tablet by mouth once daily. metoprolol tartrate, short acting, (LOPRESSOR) 25 mg tablet Take 1 tablet by mouth two times a day. albuterol (PROVENTIL) 2.5 mg /3 mL (0.083 %) nebulizer solution Use one vial every 4 hours as needed for wheezing/shortness of breath. Use over 5-15minutes. albuterol HFA (PROVENTIL HFA, VENTOLIN HFA) 90 mcg/actuation inhaler Inhale 2 Puffs as instructed every 4 hours as needed for wheezing/shortness of breath. lisinopril (ZESTRIL) 10 mg tablet Take 1 tablet by mouth once daily. chlorthalidone (HYGROTON) 25 mg tablet Take 1 tablet by mouth once daily. omeprazole (PRILOSEC) 40 mg capsule Take 1 capsule by mouth once daily. BREZTRI AEROSPHERE 160-9-4.8 mcg/actuation HFA aerosol inhaler INHALE TWO (2) PUFFS BY MOUTH TWICE DAILY INSTRUCTED benzonatate (TESSALON PERLE) 100 mg capsule Take 2 capsules by mouth three times a day as needed. (Patient not taking: Reported on 05/31/2024) guaiFENesin (MUCINEX) 600 mg 12 hr tablet Take 2 tablets by mouth two times a day. (Patient not taking: Reported on 05/31/2024) cyclobenzaprine (FLEXERIL) 10 mg tablet Take 1 tablet by mouth at bedtime as needed for muscle spasm. (Patient not taking: Reported on 05/31/2024) polyethylene glycol 3350 (MIRALAX) 17 gram packet Take 1 Packet by mouth once daily. Dissolve dose in 4 - 8 ounces of liquid (Patient not taking: Reported on 05/31/2024) nystatin (MYCOSTATIN) 100,000 unit/mL suspension Take 5 mL by mouth four times daily. 1tsp swish in mouth for several minutes, then swallow (or expectorate) 4 times daily until gone. (Patient not taking: Reported on 05/31/2024) No current facility-administered medications for this visit. Objective BP 88/62 (BP Site: Left Arm, BP Position: Sitting, BP Cuff Size: Large Adult) Pulse 72 Temp 36.9 C (98.5 F) (Temporal) Resp 24 Wt 96.3 kg (212 lb 4.9 oz) SpO2 94% BMI 33.25 kg/m Physical Exam Constitutional: General: He is not in acute distress. Appearance: He is ill-appearing. He is not diaphoretic. HENT: Nose: No congestion or rhinorrhea. Mouth/Throat: Mouth: Mucous membranes are moist. Eyes: Conjunctiva/sclera: Conjunctivae normal. Cardiovascular: Rate and Rhythm: Normal rate and regular rhythm. Heart sounds: No murmur heard. No gallop. Pulmonary: Effort: No respiratory distress. Breath sounds: Rhonchi present. No wheezing or rales. Abdominal: General: Bowel sounds are decreased. There is distension. Tenderness: There is generalized abdominal tenderness. There is guarding and rebound. Musculoskeletal: Right lower leg: No edema. Left lower leg: No edema. Neurological: Mental Status: He is alert. EKG RESULTS: normal EKG, normal sinus rhythm Assessment and Plan 1. Hypotension, unspecified hypotension type - ICD9: 458.9, ICD10: I95.9 (primary diagnosis) - ECG COMPLETE 2. Generalized abdominal pain - ICD9: 789.07, ICD10: R10.84 Etiology unclear Differential Diagnosis includes AAA, peritonitis. - ECG COMPLETE 3. Dyspnea, unspecified type - ICD9: 786.09, ICD10: R06.00 I recommended evaluation in the ER. He requested squad transport him to ER. I spoke to Raciel, midlevel provider at [facility]. Samir Jordan MD documented in this encounter [facility] 04-26-2024 Telephone encounter Note Pt was notified of the results. Pt verbalized understanding. Alee Ruiz MA [facility] 04-26-2024 Miscellaneous Notes Pt was notified of the results. Pt verbalized understanding. Alee Ruiz MA COVID test was positive. Stay home until symptoms are improving and fever free for 24 hours without taking fever reducing medication. You can reduce spread of COVID by wearing a mask around others for 5 additional days. Treat with supportive care such as cough medicine, cold medicine, and pain relievers. Follow up with worsening symptoms; in the ER if severe. documented in this encounter [facility] 04-26-2024 Telephone encounter Note COVID test was positive. Stay home until symptoms are improving and fever free for 24 hours without taking fever reducing medication. You can reduce spread of COVID by wearing a mask around others for 5 additional days. Treat with supportive care such as cough medicine, cold medicine, and pain relievers. Follow up with worsening symptoms; in the ER if severe. [facility] Work Phone: 04-25-2024 Instructions Shantelle Qureshi APRN.[employer] - 04/25/2024 11:11 AM EST covid and influenza test ordered You will be notified in 12-24 hours, results available on MyChart Rest, increase water intake Motrin or Tylenol as needed for fever or pain. Salt water gargles, chloraseptic spray or lozenges as needed for sore throat. Warm beverages, honey. Nasal saline spray as needed Cool mist humidifier at night Tylenol (generic acetaminophen) 500 mg-2 tabs every 8 hrs. as needed for fever and aches Ibuprofen 600 mg (3-200mg tablets) every 6 hours -Mucinex (generic is fine) Guaifenesin 1200 mg twice daily to help with cough and to thin out mucus Tessalon Perles 1-2 every 8 hours, do not combine this with robitussin or delsym * Prednisone 40 mg (2 tablets) per day for 5 days, take in morning or early in day * Do not NSAIDs during this 5 day course (ibuprofen, naproxen, Motrin, Aleve, Advil) Tylenol only during prednisone use * Follow up with primary care provider if no improvement with treatment * Seek medical care immediately, call 911, go to ER if you have chest pain, difficulty breathing, shortness of breath, inability to swallow. . documented in this encounter [facility] 04-25-2024 Note HNO ID: [id number] Author: SHANTELLE QURESHI APRN.[place] Service: ? Author Type: Nurse Practitioner Type: Progress Notes Filed: 04/25/2024 11:11 Note Text: Subjective The history is provided by the patient. No batch trucker was used. HPI Shawna Prajapati is a 58 year old male who presents today for CC of cough, congestion, short of breath, fever that started 12.. He has used no treatment or medications.. He got flu/covid vaccine Friday . H/o asthma, copd BP 82/60 Pulse 79 Temp 36.9 ?C (98.4 ?F) (Right Tympanic) Resp 20 Wt 88.3 kg (194 lb 10.7 oz) SpO2 96% BMI 30.49 kg/m? Social History Tobacco Use Smoking status: Former Current packs/day: 0.00 Average packs/day: 3.0 packs/day for 38.8 years (116.4 ttl pk-yrs) Types: Cigarettes Start date: 1981 Quit date: 05/02/2020 Years since quittin.9 Smokeless tobacco: Former Types: Snuff Quit date: 05/02/2020 Tobacco comments: Age 16-05/02/2019 Vaping Use Vaping status: Former Substance Use Topics Alcohol use: Not Currently Drug use: Never PAST MEDICAL HISTORY Diagnosis Date Asthma 1990 Chronic deep vein thrombosis (DVT) of calf muscle vein of right lower extremity ([facility]) 03/27/2023 COPD (chronic obstructive pulmonary disease) ([facility]) 2021 Coronary artery disease COVID-19 07/05/2021 EIC (epidermal inclusion cyst) 11/26/2019 Fibromyalgia 10/28/2016 Folliculitis 11/26/2019 GERD (gastroesophageal reflux disease) 01/27/2019 Hyperlipidemia 07/17/2021 Hypertension 07/17/2021 Inguinal hernia Irregular heartbeat NSTEMI (non-ST elevation myocardial infarction) ([facility]) 05/03/2020 [place], [place] MARGARITO on CPAP 2012 with nocturnal O2. Pancreatitis, chronic ([facility]) 09/07/2019 Seborrheic dermatitis 11/26/2019 Shingles outbreak 09/12/2021 Spinal stenosis, lumbar region with neurogenic claudication 11/20/2015 I have confirmed and edited as necessary, the [facility] Review of Systems Constitutional: Positive for chills, fever and malaise/fatigue. HENT: Positive for congestion and sinus pain. Negative for ear pain and sore throat. Respiratory: Positive for cough and shortness of breath. Negative for sputum production and wheezing. Cardiovascular: Negative for chest pain. Gastrointestinal: Negative for abdominal pain, diarrhea, nausea and vomiting. Musculoskeletal: Negative for myalgias. Neurological: Negative for headaches. Objective Physical Exam Vitals and nursing note reviewed. Constitutional: Appearance: He is not toxic-appearing. HENT: Head: Normocephalic and atraumatic. Right Ear: Tympanic membrane, ear canal and external ear normal. Left Ear: Tympanic membrane, ear canal and external ear normal. Nose: Mucosal edema, congestion and rhinorrhea present. Right Sinus: No maxillary sinus tenderness or frontal sinus tenderness. Left Sinus: No maxillary sinus tenderness or frontal sinus tenderness. Mouth/Throat: Pharynx: Uvula midline. Posterior oropharyngeal erythema present. No oropharyngeal exudate. Tonsils: No tonsillar abscesses. Cardiovascular: Rate and Rhythm: Normal rate and regular rhythm. Heart sounds: Normal heart sounds. Pulmonary: Effort: Pulmonary effort is normal. Breath sounds: Normal breath sounds. No decreased breath sounds, wheezing, rhonchi or rales. Lymphadenopathy: Head: Right side of head: No submental, submandibular, tonsillar or preauricular adenopathy. Left side of head: No submental, submandibular, tonsillar or preauricular adenopathy. Cervical: No cervical adenopathy. Right cervical: No superficial cervical adenopathy. Left cervical: No superficial cervical adenopathy. Neurological: Mental Status: He is alert. ASSESSMENT/PLAN: 1. URI with cough and congestion - ICD9: 465.9, ICD10: J06.9 - Discussed viral etiology and rationale for treatment. - Symptomatic treatment with prn analgesia - Supportive care with fluids and rest - The patient may also use OTC cough and cold meds as needed and warm salt water gargles, throat lozenges and/or OTC throat spray as needed. - Follow up in one week if symptoms persist or sooner if worsening of symptoms - COVID AND INFLUENZA A/B AND RSV PCR, ROUTINE Prednisone, tessalon perls, mucinex Diagnosis and treatment plan were discussed and questions were answered to the patient's satisfaction. Pt acknowledged understanding of concepts and follow up plan. Specific signs and symptoms that would indicate the need for higher level of care were discussed in detail warranting prompt ER evaluation. Shantelle Qureshi APRN.[facility] 04-25-2024 History of Present illness Narrative Subjective The history is provided by the patient. No batch trucker was used. HPI Shawna Prajapati is a 58 year old male who presents today for CC of cough, congestion, short of breath, fever that started .. He has used no treatment or medications.. He got flu/covid vaccine Friday . H/o asthma, copd BP 82/60 Pulse 79 Temp 36.9 C (98.4 F) (Right Tympanic) Resp 20 Wt 88.3 kg (194 lb 10.7 oz) SpO2 96% BMI 30.49 kg/m Social History Tobacco Use Smoking status: Former Current packs/day: 0.00 Average packs/day: 3.0 packs/day for 38.8 years (116.4 ttl pk-yrs) Types: Cigarettes Start date: 1981 Quit date: 05/02/2020 Years since quittin.9 Smokeless tobacco: Former Types: Snuff Quit date: 05/02/2020 Tobacco comments: Age 16-05/02/2019 Vaping Use Vaping status: Former Substance Use Topics Alcohol use: Not Currently Drug use: Never PAST MEDICAL HISTORY Diagnosis Date Asthma 1990 Chronic deep vein thrombosis (DVT) of calf muscle vein of right lower extremity ([facility]) 03/27/2023 COPD (chronic obstructive pulmonary disease) ([facility]) 2021 Coronary artery disease COVID-19 07/05/2021 EIC (epidermal inclusion cyst) 11/26/2019 Fibromyalgia 10/28/2016 Folliculitis 11/26/2019 GERD (gastroesophageal reflux disease) 01/27/2019 Hyperlipidemia 07/17/2021 Hypertension 07/17/2021 Inguinal hernia Irregular heartbeat NSTEMI (non-ST elevation myocardial infarction) ([facility]) 05/03/2020 [place], [place] MARGARITO on CPAP 2012 with nocturnal O2. Pancreatitis, chronic ([facility]) 09/07/2019 Seborrheic dermatitis 11/26/2019 Shingles outbreak 09/12/2021 Spinal stenosis, lumbar region with neurogenic claudication 11/20/2015 I have confirmed and edited as necessary, the [facility] Review of Systems Constitutional: Positive for chills, fever and malaise/fatigue. HENT: Positive for congestion and sinus pain. Negative for ear pain and sore throat. Respiratory: Positive for cough and shortness of breath. Negative for sputum production and wheezing. Cardiovascular: Negative for chest pain. Gastrointestinal: Negative for abdominal pain, diarrhea, nausea and vomiting. Musculoskeletal: Negative for myalgias. Neurological: Negative for headaches. Objective Physical Exam Vitals and nursing note reviewed. Constitutional: Appearance: He is not toxic-appearing. HENT: Head: Normocephalic and atraumatic. Right Ear: Tympanic membrane, ear canal and external ear normal. Left Ear: Tympanic membrane, ear canal and external ear normal. Nose: Mucosal edema, congestion and rhinorrhea present. Right Sinus: No maxillary sinus tenderness or frontal sinus tenderness. Left Sinus: No maxillary sinus tenderness or frontal sinus tenderness. Mouth/Throat: Pharynx: Uvula midline. Posterior oropharyngeal erythema present. No oropharyngeal exudate. Tonsils: No tonsillar abscesses. Cardiovascular: Rate and Rhythm: Normal rate and regular rhythm. Heart sounds: Normal heart sounds. Pulmonary: Effort: Pulmonary effort is normal. Breath sounds: Normal breath sounds. No decreased breath sounds, wheezing, rhonchi or rales. Lymphadenopathy: Head: Right side of head: No submental, submandibular, tonsillar or preauricular adenopathy. Left side of head: No submental, submandibular, tonsillar or preauricular adenopathy. Cervical: No cervical adenopathy. Right cervical: No superficial cervical adenopathy. Left cervical: No superficial cervical adenopathy. Neurological: Mental Status: He is alert. ASSESSMENT/PLAN: 1. URI with cough and congestion - ICD9: 465.9, ICD10: J06.9 - Discussed viral etiology and rationale for treatment. - Symptomatic treatment with prn analgesia - Supportive care with fluids and rest - The patient may also use OTC cough and cold meds as needed and warm salt water gargles, throat lozenges and/or OTC throat spray as needed. - Follow up in one week if symptoms persist or sooner if worsening of symptoms - COVID & INFLUENZA A/B & RSV PCR, ROUTINE Prednisone, tessalon perls, mucinex Diagnosis and treatment plan were discussed and questions were answered to the patient's satisfaction. Pt acknowledged understanding of concepts and follow up plan. Specific signs and symptoms that would indicate the need for higher level of care were discussed in detail warranting prompt ER evaluation. Shantelle Qureshi APRN.[employer]ST[employer]ER TEACHER documented in this encounter [facility] 04-15-2024 Telephone encounter Note Patient notified of below results/recommendations, verbalized understanding. Promise Bernal LPN [facility] 04-15-2024 Telephone encounter Note ----- Message from Samir Jordan MD sent at 04/15/2024 4:23 PM EST ----- Most labs are okay. Kidney function is down. Stress hydration. Repeat non fasting blood work in 3 weeks, before follow up appointment. [facility] 04-15-2024 Miscellaneous Notes Patient notified of below results/recommendations, verbalized understanding. Promise Bernal LPN ----- Message from Samir Jordan MD sent at 04/15/2024 4:23 PM EST ----- Most labs are okay. Kidney function is down. Stress hydration. Repeat non fasting blood work in 3 weeks, before follow up appointment. documented in this encounter [facility] 04-15-2024 Telephone encounter Note Patient notified, verbalized understanding. Promise Bernal LPN [facility] 04-15-2024 Miscellaneous Notes Patient notified, verbalized understanding. Promise Bernal LPN ----- Message from Samir Jordan MD sent at 04/15/2024 4:19 PM EST ----- chest X-ray with no acute disease. documented in this encounter [facility] 04-15-2024 Telephone encounter Note ----- Message from Samir Jordan MD sent at 04/15/2024 4:19 PM EST ----- chest X-ray with no acute disease. [facility] 04-14-2024 History of Present illness Narrative Radiology Service Progress Note PATIENT NAME: Shawna Prajapati DATE OF SERVICE: April 14, 2024 TIME: 2:24 PM PATIENT IDENTITY VERIFICATION COMPLETED USING TWO (2) IDENTIFIERS: Name and Date of confirmed by patient verbally. FALL SCREENING: Has the patient had 2 falls in the last year or 1 fall with injury or currently using an Ambulatory Assistive Device (Walker, Cane, Wheelchair, Crutches, etc.)? Yes, Patient High Risk for Falls What interventions were put in place to prevent falls during this visit? Increased Observations by Caregivers PATIENT GENDER DATA: Male PATIENT RELEVANT IMPLANT DATA REVIEWED: Yes PATIENT PRESENTS WITH AN IMPLANTABLE OR ATTACHED FISH PROCESSOR: No RADIOLOGY DEPARTMENT: General X-ray: Exam(s) Completed: Chest X-Ray PERIPHERAL IV DATA: Not applicable SIGNED BY: RT Melvin(Yue) April 14, 2024 2:24 PM documented in this encounter [facility] 04-14-2024 Note HNO ID: [id number] Author: CHICO GARVIN RT(R) Service: ? Author Type: Artist Color Separation Type: Progress Notes Filed: 04/14/2024 14:25 Note Text: Radiology Service Progress Note PATIENT NAME: Shawna Prajapati DATE OF SERVICE: April 14, 2024 TIME: 2:24 PM PATIENT IDENTITY VERIFICATION COMPLETED USING TWO (2) IDENTIFIERS: Name and Date of confirmed by patient verbally. FALL SCREENING: Has the patient had 2 falls in the last year or 1 fall with injury or currently using an Ambulatory Assistive Device (Walker, Cane, Wheelchair, Crutches, etc.)? Yes, Patient High Risk for Falls What interventions were put in place to prevent falls during this visit? Increased Observations by Caregivers PATIENT GENDER DATA: Male PATIENT RELEVANT IMPLANT DATA REVIEWED: Yes PATIENT PRESENTS WITH AN IMPLANTABLE OR ATTACHED FISH PROCESSOR: No RADIOLOGY DEPARTMENT: General X-ray: Exam(s) Completed: Chest X-Ray PERIPHERAL IV DATA: Not applicable SIGNED BY: RT Melvin(Yue) April 14, 2024 2:24 PM [facility] 04-14-2024 Note HNO ID: [id number] Author: SAMIR JORDAN MD Service: ? Author Type: Physician Type: Progress Notes Filed: 04/14/2024 13:51 Note Text: This note was created using [employer]. Subjective Shawna Prajapati is a 58 year old male. He had moved to a new care home one week ago, and started having progressive leg cramps at night from laying down flat. Cramps started from both hips, radiating down the legs and feet. Symptoms have worsened and now woke him up. This was also now affecting his gait. He was also more short of breath the past month of so. He was taking all his medications. Review of Systems Constitutional: Negative for chills, diaphoresis, fatigue, fever and unexpected weight change. HENT: Negative. Respiratory: Positive for cough and shortness of breath. Negative for chest tightness. Cardiovascular: Negative for chest pain, palpitations and leg swelling. Gastrointestinal: Negative for diarrhea, nausea and vomiting. Neurological: Positive for numbness. Negative for weakness. 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 Muscle Vein of Right Lower Extremity (Hcc) Gastroesophageal Reflux Disease Without Esophagitis Delusions (Hcc) Bilateral Edema of Lower Extremity Constipation Social History Tobacco Use Smoking status: Former Current packs/day: 0.00 Average packs/day: 3.0 packs/day for 38.8 years (116.4 ttl pk-yrs) Types: Cigarettes Start date: 1981 Quit date: 05/02/2020 Years since quittin.9 Smokeless tobacco: Former Types: Snuff Quit date: 05/02/2020 Tobacco comments: Age 16-05/02/2019 Vaping Use Vaping status: Former Substance Use Topics Alcohol use: Not Currently Drug use: Never Current Outpatient Medications Medication Sig aspirin, enteric coated (ASPIRIN, ENTERIC COATED) 81 mg EC tablet Take 1 tablet by mouth once daily. metoprolol tartrate, short acting, (LOPRESSOR) 25 mg tablet Take 1 tablet by mouth two times a day. albuterol (PROVENTIL) 2.5 mg /3 mL (0.083 %) nebulizer solution Use one vial every 4 hours as needed for wheezing/shortness of breath. Use over 5-15minutes. albuterol HFA (PROVENTIL HFA, VENTOLIN HFA) 90 mcg/actuation inhaler Inhale 2 Puffs as instructed every 4 hours as needed for wheezing/shortness of breath. lisinopril (ZESTRIL) 10 mg tablet Take 1 tablet by mouth once daily. chlorthalidone (HYGROTON) 25 mg tablet Take 1 tablet by mouth once daily. omeprazole (PRILOSEC) 40 mg capsule Take 1 capsule by mouth once daily. polyethylene glycol 3350 (MIRALAX) 17 gram packet Take 1 Packet by mouth once daily. Dissolve dose in 4 - 8 ounces of liquid rivaroxaban (XARELTO) 20 mg tablet Take 1 tablet by mouth daily with dinner. nystatin (MYCOSTATIN) 100,000 unit/mL suspension Take 5 mL by mouth four times daily. 1tsp swish in mouth for several minutes, then swallow (or expectorate) 4 times daily until gone. [employer] AEROSPHERE 160-9-4.8 mcg/actuation HFA aerosol inhaler INHALE TWO (2) PUFFS BY MOUTH TWICE DAILY INSTRUCTED No current facility-administered medications for this visit. Objective BP 102/62 (BP Site: Right Arm, BP Position: Sitting, BP Cuff Size: Large Adult) Pulse 68 Temp 36.7 ?C (98 ?F) (Temporal) Resp 18 Wt 90 kg (198 lb 6.6 oz) BMI 31.08 kg/m? Physical Exam Constitutional: General: He is not in acute distress. Appearance: He is not ill-appearing or diaphoretic. HENT: Head: Normocephalic. Cardiovascular: Rate and Rhythm: Normal rate and regular rhythm. Pulses: Normal pulses. Heart sounds: S1 normal and S2 normal. No murmur heard. No gallop. Pulmonary: Effort: No respiratory distress. Breath sounds: Decreased breath sounds present. No wheezing, rhonchi or rales. Musculoskeletal: Lumbar back: No deformity, spasms or tenderness. Negative right straight leg raise test and negative left straight leg raise test. Right hip: Normal. Left hip: Normal. Right knee: Normal. Left knee: Normal. Right lower leg: No edema. Left lower leg: No edema. Skin: Capillary Refill: Capillary refill takes less than 2 seconds. Neurological: Mental Status: He is alert. Sensory: No sensory deficit. Motor: No weakness. Gait: Gait abnormal. Comments: Ambulating with a walking stick. Assessment and Plan. 1. Bilateral leg cramps - ICD9: 729.82, ICD10: R25.2 (primary diagnosis) Discussed medication dosage, usage, goals of therapy, and side effects. - CYCLOBENZAPRINE 10 MG TABLET. Take one(1) tablet at bedtime as needed. - COMPREHENSIVE METABOLIC PANEL - MAGNESIUM 2. Encounter for immunization - ICD9: V03.89, ICD10: Z23 - PFIZER-BIONTECH COVID-19 VACCINE AGE 12+ YR (COMIRNATY) - INFLUENZA VACCINE, AGE 6 (more content not included)... [facility] 04-14-2024 History of Present illness Narrative This note was created using [employer]. Subjective Shawna Prajapati is a 58 year old male. He had moved to a new care home one week ago, and started having progressive leg cramps at night from laying down flat. Cramps started from both hips, radiating down the legs and feet. Symptoms have worsened and now woke him up. This was also now affecting his gait. He was also more short of breath the past month of so. He was taking all his medications. Review of Systems Constitutional: Negative for chills, diaphoresis, fatigue, fever and unexpected weight change. HENT: Negative. Respiratory: Positive for cough and shortness of breath. Negative for chest tightness. Cardiovascular: Negative for chest pain, palpitations and leg swelling. Gastrointestinal: Negative for diarrhea, nausea and vomiting. Neurological: Positive for numbness. Negative for weakness. 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 Muscle Vein of Right Lower Extremity (Hcc) Gastroesophageal Reflux Disease Without Esophagitis Delusions (Hcc) Bilateral Edema of Lower Extremity Constipation Social History Tobacco Use Smoking status: Former Current packs/day: 0.00 Average packs/day: 3.0 packs/day for 38.8 years (116.4 ttl pk-yrs) Types: Cigarettes Start date: 1981 Quit date: 05/02/2020 Years since quittin.9 Smokeless tobacco: Former Types: Snuff Quit date: 05/02/2020 Tobacco comments: Age 16-05/02/2019 Vaping Use Vaping status: Former Substance Use Topics Alcohol use: Not Currently Drug use: Never Current Outpatient Medications Medication Sig aspirin, enteric coated (ASPIRIN, ENTERIC COATED) 81 mg EC tablet Take 1 tablet by mouth once daily. metoprolol tartrate, short acting, (LOPRESSOR) 25 mg tablet Take 1 tablet by mouth two times a day. albuterol (PROVENTIL) 2.5 mg /3 mL (0.083 %) nebulizer solution Use one vial every 4 hours as needed for wheezing/shortness of breath. Use over 5-15minutes. albuterol HFA (PROVENTIL HFA, VENTOLIN HFA) 90 mcg/actuation inhaler Inhale 2 Puffs as instructed every 4 hours as needed for wheezing/shortness of breath. lisinopril (ZESTRIL) 10 mg tablet Take 1 tablet by mouth once daily. chlorthalidone (HYGROTON) 25 mg tablet Take 1 tablet by mouth once daily. omeprazole (PRILOSEC) 40 mg capsule Take 1 capsule by mouth once daily. polyethylene glycol 3350 (MIRALAX) 17 gram packet Take 1 Packet by mouth once daily. Dissolve dose in 4 - 8 ounces of liquid rivaroxaban (XARELTO) 20 mg tablet Take 1 tablet by mouth daily with dinner. nystatin (MYCOSTATIN) 100,000 unit/mL suspension Take 5 mL by mouth four times daily. 1tsp swish in mouth for several minutes, then swallow (or expectorate) 4 times daily until gone. [employer] AEROSPHERE 160-9-4.8 mcg/actuation HFA aerosol inhaler INHALE TWO (2) PUFFS BY MOUTH TWICE DAILY INSTRUCTED No current facility-administered medications for this visit. Objective BP 102/62 (BP Site: Right Arm, BP Position: Sitting, BP Cuff Size: Large Adult) Pulse 68 Temp 36.7 C (98 F) (Temporal) Resp 18 Wt 90 kg (198 lb 6.6 oz) BMI 31.08 kg/m Physical Exam Constitutional: General: He is not in acute distress. Appearance: He is not ill-appearing or diaphoretic. HENT: Head: Normocephalic. Cardiovascular: Rate and Rhythm: Normal rate and regular rhythm. Pulses: Normal pulses. Heart sounds: S1 normal and S2 normal. No murmur heard. No gallop. Pulmonary: Effort: No respiratory distress. Breath sounds: Decreased breath sounds present. No wheezing, rhonchi or rales. Musculoskeletal: Lumbar back: No deformity, spasms or tenderness. Negative right straight leg raise test and negative left straight leg raise test. Right hip: Normal. Left hip: Normal. Right knee: Normal. Left knee: Normal. Right lower leg: No edema. Left lower leg: No edema. Skin: Capillary Refill: Capillary refill takes less than 2 seconds. Neurological: Mental Status: He is alert. Sensory: No sensory deficit. Motor: No weakness. Gait: Gait abnormal. Comments: Ambulating with a walking stick. Assessment and Plan. 1. Bilateral leg cramps - ICD9: 729.82, ICD10: R25.2 (primary diagnosis) Discussed medication dosage, usage, goals of therapy, and side effects. - CYCLOBENZAPRINE 10 MG TABLET. Take one(1) tablet at bedtime as needed. - COMPREHENSIVE METABOLIC PANEL - MAGNESIUM 2. Encounter for immunization - ICD9: V03.89, ICD10: Z23 - [employer] video COVID-19 VACCINE AGE 12+ YR (COMIRNATY) - INFLUENZA VACCINE, AGE 6MO-64YR, TRIVALENT (AFLURIA, FLULAVAL, FLUVIRIN, FLUZONE) 3. Need for influenza vaccination - ICD9: V04.81, ICD10: Z23 - INFLUENZA VACCINE, AGE 6MO-64YR, TRIVALENT (AFLURIA, FLULAVAL, FLUVIRIN, FLUZONE) 4. Chronic obstructive pulmonary disease with acute exacerbation (HCC) - ICD9: 491.21, ICD10: J44.1 - Schedule with pulmonary. - XR CHEST 2V FRONTAL/LAT Samir Jordan MD documented in this encounter [facility] 04-09-2024 Telephone encounter Note Prescription Refill Information The patient has been identified by name and date of : Yes Caregiver verified no other encounters exist for this prescription request: Yes Caregiver confirmed with patient/requestor that no other refills are due, in the near future, with this provider at this time: Yes The last office visit in the department: 11-26-23 Does the patient have a future office visit with this provider/department: Yes s Requested Prescriptions Pending Prescriptions Disp Refills aspirin, enteric coated (ASPIRIN, ENTERIC COATED) 81 mg EC tablet 30 tablet 5 Sig: Take 1 tablet by mouth once daily. metoprolol tartrate, short acting, (LOPRESSOR) 25 mg tablet 60 tablet 5 Sig: Take 1 tablet by mouth two times a day. albuterol (PROVENTIL) 2.5 mg /3 mL (0.083 %) nebulizer solution 60 mL 5 Sig: Use one vial every 4 hours as needed for wheezing/shortness of breath. Use over 5-15minutes. Calli Mcclain April 09, 2024 12:45 PM [facility] Work Phone: 04-09-2024 Miscellaneous Notes Prescription Refill Information The patient has been identified by name and date of : Yes Caregiver verified no other encounters exist for this prescription request: Yes Caregiver confirmed with patient/requestor that no other refills are due, in the near future, with this provider at this time: Yes The last office visit in the department: 11-26-23 Does the patient have a future office visit with this provider/department: Yes s Requested Prescriptions Pending Prescriptions Disp Refills aspirin, enteric coated (ASPIRIN, ENTERIC COATED) 81 mg EC tablet 30 tablet 5 Sig: Take 1 tablet by mouth once daily. metoprolol tartrate, short acting, (LOPRESSOR) 25 mg tablet 60 tablet 5 Sig: Take 1 tablet by mouth two times a day. albuterol (PROVENTIL) 2.5 mg /3 mL (0.083 %) nebulizer solution 60 mL 5 Sig: Use one vial every 4 hours as needed for wheezing/shortness of breath. Use over 5-15minutes. Calli Mcclain April 09, 2024 12:45 PM documented in this encounter [facility] 12-17-2023 Telephone encounter Note Patient has been identified by name and date of : Yes Patient phones for refill(s): Requested Prescriptions Pending Prescriptions Disp Refills albuterol HFA (PROVENTIL HFA, VENTOLIN HFA) 90 mcg/actuation inhaler 18 g 11 Sig: Inhale 2 Puffs as instructed every 4 hours as needed for wheezing/shortness of breath. lisinopril (ZESTRIL) 10 mg tablet 30 tablet 11 Sig: Take 1 tablet by mouth once daily. chlorthalidone (HYGROTON) 25 mg tablet 30 tablet 11 Sig: Take 1 tablet by mouth once daily. Date of last office visit in primary care: 11/26/2023 Date of next office visit in primary care: 05/27/2024 Please advise. Thank you. Promise Bernal LPN. [facility] 12-17-2023 Miscellaneous Notes Patient has been identified by name and date of : Yes Patient phones for refill(s): Requested Prescriptions Pending Prescriptions Disp Refills albuterol HFA (PROVENTIL HFA, VENTOLIN HFA) 90 mcg/actuation inhaler 18 g 11 Sig: Inhale 2 Puffs as instructed every 4 hours as needed for wheezing/shortness of breath. lisinopril (ZESTRIL) 10 mg tablet 30 tablet 11 Sig: Take 1 tablet by mouth once daily. chlorthalidone (HYGROTON) 25 mg tablet 30 tablet 11 Sig: Take 1 tablet by mouth once daily. Date of last office visit in primary care: 11/26/2023 Date of next office visit in primary care: 05/27/2024 Please advise. Thank you. Promise Bernal LPN. Prescription Refill Information The patient has been identified by name and date of : Yes Caregiver verified no other encounters exist for this prescription request: Yes Caregiver confirmed with patient/requestor that no other refills are due, in the near future, with this provider at this time: Yes The last office visit in the department: 11/26/23 Does the patient have a future office visit with this provider/department: Yes Requested Prescriptions Pending Prescriptions Disp Refills albuterol HFA (PROVENTIL HFA, VENTOLIN HFA) 90 mcg/actuation inhaler 18 g 11 Sig: Inhale 2 Puffs as instructed every 4 hours as needed for wheezing/shortness of breath. lisinopril (ZESTRIL) 10 mg tablet 30 tablet 11 Sig: Take 1 tablet by mouth once daily. chlorthalidone (HYGROTON) 25 mg tablet 30 tablet 11 Sig: Take 1 tablet by mouth once daily. [facility] called. Chrissy Mcclain December 17, 2023 11:46 AM documented in this encounter [facility] 12-17-2023 Telephone encounter Note Prescription Refill Information The patient has been identified by name and date of : Yes Caregiver verified no other encounters exist for this prescription request: Yes Caregiver confirmed with patient/requestor that no other refills are due, in the near future, with this provider at this time: Yes The last office visit in the department: 11/26/23 Does the patient have a future office visit with this provider/department: Yes Requested Prescriptions Pending Prescriptions Disp Refills albuterol HFA (PROVENTIL HFA, VENTOLIN HFA) 90 mcg/actuation inhaler 18 g 11 Sig: Inhale 2 Puffs as instructed every 4 hours as needed for wheezing/shortness of breath. lisinopril (ZESTRIL) 10 mg tablet 30 tablet 11 Sig: Take 1 tablet by mouth once daily. chlorthalidone (HYGROTON) 25 mg tablet 30 tablet 11 Sig: Take 1 tablet by mouth once daily. [facility] jennie. Chrissy Mcclain December 17, 2023 11:46 AM [facility] 11-26-2023 History of Present illness Narrative This note was created using CAD Best[employer]. Subjective Shawna Prajapati is a 58 year old male. He had abdominal pain, epigastric and left sided that improved with a higher dose of omeprazole. He needed refills. He also had constipation, but did not take Miralax because he lived in a vehicle. He was also unable to do colon cancer screening at this time. His other conditions appeared to be stable. His mentation was at baseline. Review of Systems Constitutional: Negative for activity change, appetite change, fever and unexpected weight change. Respiratory: Negative for cough and shortness of breath. Cardiovascular: Negative for chest pain and palpitations. Gastrointestinal: Positive for constipation. Negative for blood in stool, nausea and vomiting. Psychiatric/Behavioral: Negative for dysphoric mood. The patient is not nervous/anxious. 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 Muscle Vein of Right Lower Extremity (Hcc) Gastroesophageal Reflux Disease Without Esophagitis Delusions (Hcc) Bilateral Edema of Lower Extremity Social History Tobacco Use Smoking status: Former Packs/day: 3.00 Years: 30.00 Additional pack years: 0.00 Total pack years: 90.00 Types: Cigarettes Start date: 1981 Quit date: 05/02/2020 Years since quittin.5 Smokeless tobacco: Former Types: Snuff Quit date: 05/02/2020 Tobacco comments: Age 16-05/02/2019 Vaping Use Vaping Use: Former Substance Use Topics Alcohol use: Not Currently Drug use: Never Current Outpatient Medications Medication Sig omeprazole (PRILOSEC) 40 mg capsule Take 1 capsule by mouth once daily. polyethylene glycol 3350 (MIRALAX) 17 gram packet Take 1 Packet by mouth once daily. Dissolve dose in 4 - 8 ounces of liquid omeprazole (PRILOSEC) 20 mg capsule Take 1 capsule by mouth once daily. aspirin, enteric coated (ASPIRIN, ENTERIC COATED) 81 mg EC tablet Take 1 tablet by mouth once daily. albuterol (PROVENTIL) 2.5 mg /3 mL (0.083 %) nebulizer solution Use one vial every 4 hours as needed for wheezing/shortness of breath. Use over 5-15minutes. metoprolol tartrate, short acting, (LOPRESSOR) 25 mg tablet Take 1 tablet by mouth two times a day. albuterol HFA (PROVENTIL HFA, VENTOLIN HFA) 90 mcg/actuation inhaler Inhale 2 Puffs as instructed every 4 hours as needed for wheezing/shortness of breath. rivaroxaban (XARELTO) 20 mg tablet Take 1 tablet by mouth daily with dinner. nystatin (MYCOSTATIN) 100,000 unit/mL suspension Take 5 mL by mouth four times daily. 1tsp swish in mouth for several minutes, then swallow (or expectorate) 4 times daily until gone. BREZTRI AEROSPHERE 160-9-4.8 mcg/actuation HFA aerosol inhaler INHALE TWO (2) PUFFS BY MOUTH TWICE DAILY INSTRUCTED lisinopril (ZESTRIL) 10 mg tablet Take 1 tablet by mouth once daily. chlorthalidone (HYGROTON) 25 mg tablet Take 1 tablet by mouth once daily. No current facility-administered medications for this visit. Objective BP 100/64 (BP Site: Left Arm, BP Position: Sitting, BP Cuff Size: Large Adult) Pulse 72 Temp 36.6 C (97.8 F) (Temporal) Resp 18 Wt 89.3 kg (196 lb 14.4 oz) BMI 30.84 kg/m Physical Exam Constitutional: General: He is not in acute distress. Eyes: Extraocular Movements: Extraocular movements intact. Conjunctiva/sclera: Conjunctivae normal. Cardiovascular: Rate and Rhythm: Normal rate and regular rhythm. Heart sounds: No murmur heard. No gallop. Pulmonary: Breath sounds: Normal breath sounds. Abdominal: General: There is no distension. Palpations: Abdomen is soft. There is no mass. Tenderness: There is abdominal tenderness in the epigastric area and left upper quadrant. There is no right CVA tenderness, left CVA tenderness, guarding or rebound. Musculoskeletal: Right lower leg: No edema. Left lower leg: No edema. Neurological: General: No focal deficit present. Mental Status: He is alert. Psychiatric: Attention and Perception: Attention normal. He does not perceive auditory or visual hallucinations. Mood and Affect: Mood normal. Speech: Speech is tangential. Behavior: Behavior is cooperative. Thought Content: Thought content is paranoid and delusional. Comments: [place] proposed to an actress, but fell through... staff at the last visit called him names...he might look for another doctor. Assessment and Plan 1. Gastroesophageal reflux disease without esophagitis - ICD9: 530.81, ICD10: K21.9 (primary diagnosis) Refilled. Return if worse. - OMEPRAZOLE 40 MG CAPSULE,DELAYED RELEASE 2. Constipation, unspecified constipation type - ICD9: 564.00, ICD10: K59.00 See HPI. 3. Screening for depression - ICD9: V79.0, ICD10: Z13.31 He denied. - DEPRESSION SCREENING 4. Encounter for screening examination for other mental health and behavioral disorders - ICD9: V79.8, ICD10: Z13.39 He denied. - ANXIETY SCREENING 5. History of tobacco use - ICD9: V15.82, ICD10: Z87.891 Lung cancer screening due. I reassured him I will continue to be his PCP until he lets me know otherwise, or if his situation changes, and he relocates far from here. Samir Jordan MD documented in this encounter [facility] 11-11-2023 Instructions Leah Shaikh, 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 - 11/11/2023 12:52 PM EDT Abdominal may be due to gastric reflux and constipation 1. start higher dose of omeprazole 40 mg daily, prescription sent to [facility]. Take once a day in the morning on an empty stomach and wait at least 30 minutes before eating 2. Eat 6 small meals a day instead of 2 or 3 big ones. This is to keep some food in your stomach so the acid has something to work on. Eat slowly. Don't lie down for 2 to 3 hours after eating. Avoid eating or drinking anything right before going to bed. 3. Elevate head of bed on blocks approximately 4-6 inches. It is not sufficient to just use a wedge pillow. Bending at waist increases intra-abdominal pressure, which will increase reflux. 4. Minimize/eliminate chocolate, coffee, peppermint, fruit juices, tomatoes, greasy and spicy foods. All of these either stimulate stomach acid production, or are acidic themselves. For constipation: start Miralax, follow prescription instructions Call office if constipation does not resolve with above measures Go to ER if you develop severe abdominal pain, vomiting that won't stop, fever above 100.5, rigid/hard abdomen. Follow-up with Dr. Jordan on 11/25 as scheduled or sooner if needed documented in this encounter [facility] 11-11-2023 History of Present illness Narrative CC Patient presents with: Abdominal Pain: Burning x 2 days, vomiting and bringing up phlegm HPI Shawna Prajapati is a 58 year old male who presents with abdominal pain for for two days. Pain became worse after eating spaghetti yesterday afternoon. Location: generalized without radiation Described as: constant burning Aggravating factors: eating Alleviating factors: vomiting eases it up temporarily Associated symptoms: nausea, vomiting, decreased appetite, constipation. His last BM was today, very small amount. Denies straining with BM's or hard stools. Denies: blood in stools or black stools, diarrhea, problem swallowing, reflux GI history: GERD- he ran out of omeprazole about one month ago Surgeries: none. Endoscopy: none Family history: unsure He does not smoke. Denies alcohol use. Diet varies as he is homeless and does not always have access to healthy foods Review of Systems Constitutional: Negative for chills, diaphoresis, fatigue, fever and unexpected weight change. Respiratory: Negative for cough, shortness of breath and wheezing. Cardiovascular: Negative for chest pain, palpitations and leg swelling. PAST MEDICAL HISTORY Diagnosis Date Asthma 1990 Chronic deep vein thrombosis (DVT) of calf muscle vein of right lower extremity (HCC) 03/27/2023 COPD (chronic obstructive pulmonary disease) (HCC) 2021 Coronary artery disease COVID-19 07/05/2021 EIC (epidermal inclusion cyst) 11/26/2019 Fibromyalgia 10/28/2016 Folliculitis 11/26/2019 GERD (gastroesophageal reflux disease) 01/27/2019 Hyperlipidemia 07/17/2021 Hypertension 07/17/2021 Inguinal hernia Irregular heartbeat NSTEMI (non-ST elevation myocardial infarction) (HCC) 05/03/2020 [place], [place] MARGARITO on CPAP 2012 with nocturnal O2. Pancreatitis, chronic (HCC) 09/07/2019 Seborrheic dermatitis 11/26/2019 Shingles outbreak 09/12/2021 Spinal stenosis, lumbar region with neurogenic claudication 11/20/2015 PAST SURGICAL HISTORY Procedure Laterality Date CC CORONARY STENT 05/04/2020 [facility], [facility] HERNIA REPAIR HX Right 1964 inguinal HERNIA REPAIR HX Left 1990 inguinal LAMINECTOMY,LUMBAR 11/08/2021 Dr. Cristóbal Maldonado ALLERGIES Cabbage, Lettuce, Onion Extract, and Garlic Oil MEDICATIONS omeprazole (PRILOSEC) 20 mg capsule Take 1 capsule by mouth once daily. aspirin, enteric coated (ASPIRIN, ENTERIC COATED) 81 mg EC tablet Take 1 tablet by mouth once daily. albuterol (PROVENTIL) 2.5 mg /3 mL (0.083 %) nebulizer solution Use one vial every 4 hours as needed for wheezing/shortness of breath. Use over 5-15minutes. metoprolol tartrate, short acting, (LOPRESSOR) 25 mg tablet Take 1 tablet by mouth two times a day. albuterol HFA (PROVENTIL HFA, VENTOLIN HFA) 90 mcg/actuation inhaler Inhale 2 Puffs as instructed every 4 hours as needed for wheezing/shortness of breath. rivaroxaban (XARELTO) 20 mg tablet Take 1 tablet by mouth daily with dinner. nystatin (MYCOSTATIN) 100,000 unit/mL suspension Take 5 mL by mouth four times daily. 1tsp swish in mouth for several minutes, then swallow (or expectorate) 4 times daily until gone. BREZTRI AEROSPHERE 160-9-4.8 mcg/actuation HFA aerosol inhaler INHALE TWO (2) PUFFS BY MOUTH TWICE DAILY INSTRUCTED lisinopril (ZESTRIL) 10 mg tablet Take 1 tablet by mouth once daily. chlorthalidone (HYGROTON) 25 mg tablet Take 1 tablet by mouth once daily. FAMILY HISTORY Adopted: Yes Family history unknown: Yes Social History Tobacco Use Smoking status: Former Packs/day: 3.00 Years: 30.00 Additional pack years: 0.00 Total pack years: 90.00 Types: Cigarettes Start date: 1981 Quit date: 05/02/2020 Years since quittin.5 Smokeless tobacco: Former Types: Snuff Quit date: 05/02/2020 Tobacco comments: Age 16-05/02/2019 Vaping Use Vaping Use: Former Substance Use Topics Alcohol use: Not Currently Drug use: Never BP 102/64 Pulse 60 Temp 36.9 C (98.4 F) (Temporal) Resp 22 Wt 92.1 kg (203 lb) SpO2 93% BMI 31.79 kg/m Physical Exam Vitals reviewed. Constitutional: Appearance: Normal appearance. HENT: Mouth/Throat: Mouth: Mucous membranes are moist. Eyes: Conjunctiva/sclera: Conjunctivae normal. Cardiovascular: Rate and Rhythm: Normal rate and regular rhythm. Heart sounds: Normal heart sounds. Pulmonary: Effort: Pulmonary effort is normal. Breath sounds: Normal breath sounds. No wheezing, rhonchi or rales. Abdominal: General: Bowel sounds are normal. There is distension. Palpations: Abdomen is soft. There is no hepatomegaly, splenomegaly or mass. Tenderness: There is abdominal tenderness (mild, generalized). There is no right CVA tenderness, left CVA tenderness, guarding or rebound. Hernia: No hernia is present. Comments: Difficult exam due to body habitus Skin: General: Skin is warm and dry. Neurological: Mental Status: He is alert. ASSESSMENT/PLAN: 1. Generalized abdominal pain - ICD9: 789.07, ICD10: R10.84 (primary diagnosis) Etiology unclear. No alarm symptoms or exam findings. Differential Diagnosis includes GERD, Gastritis, and Constipation - Begin treatment with Prilosec 40 mg daily - Treatment for constipation discussed. Start treatment with Miralax daily - Follow up in 2 weeks as scheduled with PCP or sooner if worsening of symptoms 2. Constipation, unspecified constipation type - ICD9: 564.00, ICD10: K59.00 As above 3. Gastroesophageal reflux disease without esophagitis - ICD9: 530.81, ICD10: K21.9 - Discussed lifestyle modifications including losing weight, limiting caffeine, no meals three hours before sleep, and head of bed elevation. See plan above Prescription instructions reviewed with patient as applicable. Potential red flag symptoms discussed with the patient. Reviewed appropriate action plan to take if red flag symptoms occur. Patient agreeable to treatment plan. Leah M Neel, 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 documented in this encounter [facility] 11-11-2023 Telephone encounter Note Pt called in to report his stomach hurts and jim x 2 days, vomiting yesterday. Vomiting resolved but pt does spit out white foam. Pt reports yesterday at at the [employer] and was doing fine till he got home. Pt reports not certain if he ate to much. Just not feeling well. Apt booked for today 11-11-23 with provider/team. Radha Macdonald LPN [facility] 11-11-2023 Miscellaneous Notes Pt called in to report his stomach hurts and jim x 2 days, vomiting yesterday. Vomiting resolved but pt does spit out white foam. Pt reports yesterday at at the [employer] and was doing fine till he got home. Pt reports not certain if he ate to much. Just not feeling well. Apt booked for today 11-11-23 with provider/team. Radha Macdonald LPN documented in this encounter [facility] 10-24-2023 Telephone encounter Note Patient calling to request refill of his Omeprazole. According to record, patient stated recently that he is not taking this medication, however he is calling today to request prescription be sent to [facility]. Order pended for review. Abbie Davis RN The patient has been identified by name and date of : Yes Caregiver verified no other encounters exist for this prescription request: Yes Caregiver confirmed with patient/requestor that no other refills are due, in the near future, with this provider at this time: Yes The last office visit in the department: 10/13/2023 Does the patient have a future office visit with this provider/department: Yes 11/26/2023 Requested Prescriptions Pending Prescriptions Disp Refills omeprazole (PRILOSEC) 20 mg capsule 90 capsule 3 Sig: Take 1 capsule by mouth once daily. Abbie Davis RN October 24, 2023 3:28 PM [facility] 10-24-2023 Miscellaneous Notes Patient calling to request refill of his Omeprazole. According to record, patient stated recently that he is not taking this medication, however he is calling today to request prescription be sent to [facility]. Order pended for review. Abbie Davis RN The patient has been identified by name and date of : Yes Caregiver verified no other encounters exist for this prescription request: Yes Caregiver confirmed with patient/requestor that no other refills are due, in the near future, with this provider at this time: Yes The last office visit in the department: 10/13/2023 Does the patient have a future office visit with this provider/department: Yes 11/26/2023 Requested Prescriptions Pending Prescriptions Disp Refills omeprazole (PRILOSEC) 20 mg capsule 90 capsule 3 Sig: Take 1 capsule by mouth once daily. Abbie Davis RN October 24, 2023 3:28 PM documented in this encounter [facility] 10-21-2023 Telephone encounter Note The patient has been identified by name and date of : Yes Caregiver verified no other encounters exist for this prescription request: Yes Caregiver confirmed with patient/requestor that no other refills are due, in the near future, with this provider at this time: Yes The last office visit in the department: 10/13/2023 Does the patient have a future office visit with this provider/department: Yes 11/26/2023 Requested Prescriptions Pending Prescriptions Disp Refills albuterol (PROVENTIL) 2.5 mg /3 mL (0.083 %) nebulizer solution 60 mL 11 Sig: Use one vial every 4 hours as needed for wheezing/shortness of breath. Use over 5-15minutes. albuterol HFA (PROVENTIL HFA, VENTOLIN HFA) 90 mcg/actuation inhaler 18 g 5 Sig: Inhale 2 Puffs as instructed every 4 hours as needed for wheezing/shortness of breath. aspirin, enteric coated (ASPIRIN, ENTERIC COATED) 81 mg EC tablet 30 tablet 11 Sig: Take 1 tablet by mouth once daily. metoprolol tartrate, short acting, (LOPRESSOR) 25 mg tablet 60 tablet 11 Sig: Take 1 tablet by mouth two times a day. rivaroxaban (XARELTO) 20 mg tablet 30 tablet 5 Sig: Take 1 tablet by mouth daily with dinner. Patient said he was in [facility] ER yesterday for heat exhaustion Hiram Hair LPN October 21, 2023 4:29 PM [facility] 10-21-2023 Miscellaneous Notes The patient has been identified by name and date of : Yes Caregiver verified no other encounters exist for this prescription request: Yes Caregiver confirmed with patient/requestor that no other refills are due, in the near future, with this provider at this time: Yes The last office visit in the department: 10/13/2023 Does the patient have a future office visit with this provider/department: Yes 11/26/2023 Requested Prescriptions Pending Prescriptions Disp Refills albuterol (PROVENTIL) 2.5 mg /3 mL (0.083 %) nebulizer solution 60 mL 11 Sig: Use one vial every 4 hours as needed for wheezing/shortness of breath. Use over 5-15minutes. albuterol HFA (PROVENTIL HFA, VENTOLIN HFA) 90 mcg/actuation inhaler 18 g 5 Sig: Inhale 2 Puffs as instructed every 4 hours as needed for wheezing/shortness of breath. aspirin, enteric coated (ASPIRIN, ENTERIC COATED) 81 mg EC tablet 30 tablet 11 Sig: Take 1 tablet by mouth once daily. metoprolol tartrate, short acting, (LOPRESSOR) 25 mg tablet 60 tablet 11 Sig: Take 1 tablet by mouth two times a day. rivaroxaban (XARELTO) 20 mg tablet 30 tablet 5 Sig: Take 1 tablet by mouth daily with dinner. Patient said he was in [facility] ER yesterday for heat exhaustion Hiram Hair LPN October 21, 2023 4:29 PM documented in this encounter [facility] 10-21-2023 Telephone encounter Note The patient has been identified by name and date of : Yes Caregiver verified no other encounters exist for this prescription request: Yes Caregiver confirmed with patient/requestor that no other refills are due, in the near future, with this provider at this time: Yes The last office visit in the department: 10/13/2023 Does the patient have a future office visit with this provider/department: Yes 11/26/2023 Requested Prescriptions Pending Prescriptions Disp Refills aspirin, enteric coated (ASPIRIN, ENTERIC COATED) 81 mg EC tablet 30 tablet 11 Sig: Take 1 tablet by mouth once daily. albuterol (PROVENTIL) 2.5 mg /3 mL (0.083 %) nebulizer solution 60 mL 11 Sig: Use one vial every 4 hours as needed for wheezing/shortness of breath. Use over 5-15minutes. metoprolol tartrate, short acting, (LOPRESSOR) 25 mg tablet 60 tablet 11 Sig: Take 1 tablet by mouth two times a day. Radha Macdonald LPN October 21, 2023 4:20 PM [facility] 10-21-2023 Miscellaneous Notes The patient has been identified by name and date of : Yes Caregiver verified no other encounters exist for this prescription request: Yes Caregiver confirmed with patient/requestor that no other refills are due, in the near future, with this provider at this time: Yes The last office visit in the department: 10/13/2023 Does the patient have a future office visit with this provider/department: Yes 11/26/2023 Requested Prescriptions Pending Prescriptions Disp Refills aspirin, enteric coated (ASPIRIN, ENTERIC COATED) 81 mg EC tablet 30 tablet 11 Sig: Take 1 tablet by mouth once daily. albuterol (PROVENTIL) 2.5 mg /3 mL (0.083 %) nebulizer solution 60 mL 11 Sig: Use one vial every 4 hours as needed for wheezing/shortness of breath. Use over 5-15minutes. metoprolol tartrate, short acting, (LOPRESSOR) 25 mg tablet 60 tablet 11 Sig: Take 1 tablet by mouth two times a day. Radha Macdonald LPN October 21, 2023 4:20 PM documented in this encounter [facility] 10-21-2023 Telephone encounter Note Patient notified. Promise Bernal LPN [facility] 10-21-2023 Miscellaneous Notes Patient notified. Promise Bernal LPN Patient calling having problems getting his Nystatin swish medication, was to have ordered it twice and he still does not have the medication. Patient is asking to have nystatin rx sent to [facility] please. Reset rx to file to [facility]. Please notify patient when rx is sent. Please advise The patient has been identified by name and date of : Yes Caregiver verified no other encounters exist for this prescription request: Yes Caregiver confirmed with patient/requestor that no other refills are due, in the near future, with this provider at this time: Yes The last office visit in the department: 10/13/2023 Does the patient have a future office visit with this provider/department: Yes 11/26/2023 Requested Prescriptions Pending Prescriptions Disp Refills nystatin (MYCOSTATIN) 100,000 unit/mL suspension 200 mL 0 Sig: Take 5 mL by mouth four times daily. 1tsp swish in mouth for several minutes, then swallow (or expectorate) 4 times daily until gone. Hiram Hair LPN October 21, 2023 8:34 AM documented in this encounter [facility] 10-21-2023 Telephone encounter Note Patient calling having problems getting his Nystatin swish medication, was to have ordered it twice and he still does not have the medication. Patient is asking to have nystatin rx sent to [facility] please. Reset rx to file to [facility]. Please notify patient when rx is sent. Please advise The patient has been identified by name and date of : Yes Caregiver verified no other encounters exist for this prescription request: Yes Caregiver confirmed with patient/requestor that no other refills are due, in the near future, with this provider at this time: Yes The last office visit in the department: 10/13/2023 Does the patient have a future office visit with this provider/department: Yes 11/26/2023 Requested Prescriptions Pending Prescriptions Disp Refills nystatin (MYCOSTATIN) 100,000 unit/mL suspension 200 mL 0 Sig: Take 5 mL by mouth four times daily. 1tsp swish in mouth for several minutes, then swallow (or expectorate) 4 times daily until gone. Hiram Hair LPN October 21, 2023 8:34 AM [facility] 10-20-2023 Telephone encounter Note Patient notified of below recommendation, verbalized understanding. Promise Bernal LPN [facility] 10-20-2023 Miscellaneous Notes Patient notified of below recommendation, verbalized understanding. Promise Bernal LPN Recommend ER for recurrence of stroke like symptoms. Pt calls states went [place] [facility] a while after being there left had went numb then got a cramp like hurt terrible fingers curled up. Then left [facility] got to where he was going and happened same way in left leg. Explained its been really hot most likely cramping from electrolytes being off. Make sure to get plenty of fluids. He states,I am not dehydrated . He states mat be signs of stroke. Asked if any weakness followed he states no back to normal. Wanted this passed by doctor. documented in this encounter [facility] 10-20-2023 Telephone encounter Note Recommend ER for recurrence of stroke like symptoms. [facility] 10-20-2023 Telephone encounter Note Pt calls states went [place] [facility] on [place] a while after being there left had went numb then got a cramp like hurt terrible fingers curled up. Then left [facility] got to where he was going and happened same way in left leg. Explained its been really hot most likely cramping from electrolytes being off. Make sure to get plenty of fluids. He states,I am not dehydrated . He states mat be signs of stroke. Asked if any weakness followed he states no back to normal. Wanted this passed by doctor. [facility] 10-15-2023 Telephone encounter Note Spoke with pt and he is no longer taking the Omeprazole. Radha Macdonald LPN [facility] 10-15-2023 Miscellaneous Notes Spoke with pt and he is no longer taking the Omeprazole. Radha Macdonald LPN Patient reported on 6/15 that he was no longer taking Leahalena Shaikh APRN.CNP Will route this refill request to Dr. Jordan who is managing the patient's GERD. documented in this encounter [facility] 10-15-2023 Telephone encounter Note Patient reported on 10/10 that he was no longer taking Leahalena Shaikh APRN.CNP [facility] 10-15-2023 Telephone encounter Note Will route this refill request to Dr. Jordan who is managing the patient's GERD. [facility] Work Phone: 10-14-2023 Telephone encounter Note Patient calling in to ask question about recent prescription. Question answered. Abbie Davis RN [facility] 10-14-2023 Miscellaneous Notes Patient calling in to ask question about recent prescription. Question answered. Abbie Davis RN documented in this encounter [facility] 10-13-2023 History of Present illness Narrative Radiology Service Progress Note PATIENT NAME: Shawna Prajapati DATE OF SERVICE: October 13, 2023 TIME: 4:19 PM PATIENT IDENTITY VERIFICATION COMPLETED USING TWO (2) IDENTIFIERS: Name and Date of confirmed by patient verbally. FALL SCREENING: Has the patient had 2 falls in the last year or 1 fall with injury or currently using an Ambulatory Assistive Device (Walker, Cane, Wheelchair, Crutches, etc.)? No PATIENT GENDER DATA: Male PATIENT RELEVANT IMPLANT DATA REVIEWED: Yes PATIENT PRESENTS WITH AN IMPLANTABLE OR ATTACHED FISH PROCESSOR: No RADIOLOGY DEPARTMENT: General X-ray: Exam(s) Completed: Chest X-Ray PERIPHERAL IV DATA: Not applicable SIGNED BY: RT Anna Marie(R) October 13, 2023 4:19 PM documented in this encounter [facility] 10-13-2023 History of Present illness Narrative This note was created using CAD Bestriter. Subjective Shawna Prajapati is a 58 year old male. He was seen for sinobronchitis at 2 days ago. He was starting to feel better, but continued to have sore throat, sinus drainage, epistaxis, cough, hemoptysis, and near syncope from coughing. He had initial fever. Cough was productive of white, yellow, and blood streaked sputum, and he was using more albuterol. Review of Systems Constitutional: Negative for chills, diaphoresis and fever. HENT: Positive for trouble swallowing. Cardiovascular: Negative. Gastrointestinal: Negative for diarrhea, nausea and vomiting. 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 Muscle Vein of Right Lower Extremity (Hcc) Gastroesophageal Reflux Disease Without Esophagitis Delusions (Hcc) Bilateral Edema of Lower Extremity Current Outpatient Medications Medication Sig predniSONE (DELTASONE) 20 mg tablet Take 2 tablets by mouth once daily for 5 days. doxycycline (VIBRA-TABS) 100 mg tablet Take 1 tablet by mouth two times a day for 7 days. BREZTRI AEROSPHERE 160-9-4.8 mcg/actuation HFA aerosol inhaler INHALE TWO (2) PUFFS BY MOUTH TWICE DAILY INSTRUCTED lisinopril (ZESTRIL) 10 mg tablet Take 1 tablet by mouth once daily. chlorthalidone (HYGROTON) 25 mg tablet Take 1 tablet by mouth once daily. rivaroxaban (XARELTO) 20 mg tablet Take 1 tablet by mouth daily with dinner. omeprazole (PRILOSEC) 20 mg capsule Take 1 capsule by mouth once daily. (Patient not taking: Reported on 10/11/2023) albuterol HFA (PROVENTIL HFA, VENTOLIN HFA) 90 mcg/actuation inhaler Inhale 2 Puffs as instructed every 4 hours as needed for wheezing/shortness of breath. albuterol (PROVENTIL) 2.5 mg /3 mL (0.083 %) nebulizer solution Use one vial every 4 hours as needed for wheezing/shortness of breath. Use over 5-15minutes. aspirin, enteric coated (ASPIRIN, ENTERIC COATED) 81 mg EC tablet Take 1 tablet by mouth once daily. metoprolol tartrate, short acting, (LOPRESSOR) 25 mg tablet Take 1 tablet by mouth twice daily. No current facility-administered medications for this visit. Objective BP 100/62 (BP Site: Left Arm, BP Position: Sitting, BP Cuff Size: Large Adult) Pulse 64 Temp 36.7 C (98.1 F) (Temporal) Resp 20 Wt 93.9 kg (207 lb) SpO2 93% BMI 32.42 kg/m Physical Exam Constitutional: General: He is not in acute distress. Appearance: He is not ill-appearing or diaphoretic. HENT: Right Ear: Tympanic membrane normal. Left Ear: Tympanic membrane normal. Nose: Congestion present. No rhinorrhea. Mouth/Throat: Mouth: Mucous membranes are moist. Comments: thrush Cardiovascular: Rate and Rhythm: Normal rate and regular rhythm. Heart sounds: No murmur heard. No gallop. Pulmonary: Effort: No respiratory distress. Breath sounds: Decreased breath sounds present. No wheezing or rales. Abdominal: Tenderness: There is no abdominal tenderness. Musculoskeletal: Cervical back: No tenderness. Right lower leg: No edema. Left lower leg: No edema. Lymphadenopathy: Cervical: No cervical adenopathy. Neurological: Mental Status: He is alert. Assessment and Plan 1. Chronic obstructive pulmonary disease with acute exacerbation (HCC) - ICD9: 491.21, ICD10: J44.1 (primary diagnosis) Improving. Continue current regimen. - XR CHEST 2V FRONTAL/LAT 2. History of hemoptysis - ICD9: V12.69, ICD10: Z87.898 - XR CHEST 2V FRONTAL/LAT 3. Thrush (oral) - ICD9: 112.0, ICD10: B37.0 - NYSTATIN 100,000 UNIT/ML ORAL SUSPENSION Discussed medication dosage, usage, goals of therapy, and side effects. Samir Jordan MD documented in this encounter [facility] 10-11-2023 Telephone encounter Note Called patient to discuss medication issue. I advised patient that the medications were sent to the pharmacy he requested. The patient began using lout profane language and I was unable to have further conversation with him and hung up the phone. [facility] 10-11-2023 Miscellaneous Notes Called patient to discuss medication issue. I advised patient that the medications were sent to the pharmacy he requested. The patient began using lout profane language and I was unable to have further conversation with him and hung up the phone. documented in this encounter [facility] 10-11-2023 Telephone encounter Note Patient calling with questions about his medications and wanted to know what his blood pressure was in the office today. I told him his blood pressure reading that was recorded in the office. I reviewed the 2 medications patient was prescribed today-doxycycline and prednisone-and told patient they were both e-scripted and received by the [facility] pharmacy on [address] [facility] in [place] at 1:01 pm today. Patient then proceeded to use expletives regarding his complaints about [place]. Patient denies any new or worsening symptoms of which a provider is not aware:Yes . [facility] 10-11-2023 Miscellaneous Notes Patient calling with questions about his medications and wanted to know what his blood pressure was in the office today. I told him his blood pressure reading that was recorded in the office. I reviewed the 2 medications patient was prescribed today-doxycycline and prednisone-and told patient they were both e-scripted and received by the [facility] pharmacy on [address] [facility] in [place] at 1:01 pm today. Patient then proceeded to use expletives regarding his complaints about [place]. Patient denies any new or worsening symptoms of which a provider is not aware:Yes . documented in this encounter [facility] 10-11-2023 Telephone encounter Note Reason for Call: Patient calling with request for health information: patient requesting health information about doxycycline 100 mg tablets and prednisone 20 mg tablet. Patient is asking why medication was ordered to go through two separate pharmacies instead of directly to patient's [facility] pharmacy for package pick up. Patient began using very vulgar language and stated he feels this is all in connection with drug trafficking. Patient is displeased in the delay of getting medications and is requesting a call back explanation. Patient does not want this medication to go through [facility]. , reviewed information from medication records, stating may transfer to [facility] if less expensive, but patient unsatisfied with this explanation , and verbalized understanding of information provided. Patient denies any new or worsening symptoms of which a provider is not aware: Yes. Patient used Outcome: Will route to [place] for review. Perla Ching RN [facility] 10-11-2023 Miscellaneous Notes Reason for Call: Patient calling with request for health information: patient requesting health information about doxycycline 100 mg tablets and prednisone 20 mg tablet. Patient is asking why medication was ordered to go through two separate pharmacies instead of directly to patient's [facility] pharmacy for package pick up. Patient began using very vulgar language and stated he feels this is all in connection with drug trafficking. Patient is displeased in the delay of getting medications and is requesting a call back explanation. Patient does not want this medication to go through [facility]. , reviewed information from medication records, stating may transfer to [facility] if less expensive, but patient unsatisfied with this explanation , and verbalized understanding of information provided. Patient denies any new or worsening symptoms of which a provider is not aware: Yes. Patient used Outcome: Will route to [place] for review. Perla Ching RN documented in this encounter [facility] 10-11-2023 History of Present illness Narrative Subjective HPI HPI Shawna Prajapati is a 58 year old male who presents today for CC of coug, congestion, sob. This started 4-5 days ago. Has tried nothing for relief. Symptoms are worsened by nothing. Risk factors hx of copd. .Patient presents with: Cough: Sore throat, drainage, fever, sob x 4 days PAST MEDICAL HISTORY Diagnosis Date Asthma 1990 Chronic deep vein thrombosis (DVT) of calf muscle vein of right lower extremity ([facility]) 03/27/2023 COPD (chronic obstructive pulmonary disease) ([facility]) 2021 Coronary artery disease COVID-19 07/05/2021 EIC (epidermal inclusion cyst) 11/26/2019 Fibromyalgia 10/28/2016 Folliculitis 11/26/2019 GERD (gastroesophageal reflux disease) 01/27/2019 Hyperlipidemia 07/17/2021 Hypertension 07/17/2021 Inguinal hernia Irregular heartbeat NSTEMI (non-ST elevation myocardial infarction) ([facility]) 05/03/2020 [place], [place] MARGARITO on CPAP 2012 with nocturnal O2. Pancreatitis, chronic ([facility]) 09/07/2019 Seborrheic dermatitis 11/26/2019 Shingles outbreak 09/12/2021 Spinal stenosis, lumbar region with neurogenic claudication 11/20/2015 PAST SURGICAL HISTORY Procedure Laterality Date CC CORONARY STENT 05/04/2020 [facility] to [facility], [facility] HERNIA REPAIR HX Right 1964 inguinal HERNIA REPAIR HX Left 1990 inguinal LAMINECTOMY,LUMBAR 11/08/2021 Dr. Cristóbal Maldonado ALLERGIES Cabbage, Lettuce, Onion Extract, and Garlic Oil MEDICATIONS BREZTRI AEROSPHERE 160-9-4.8 mcg/actuation HFA aerosol inhaler INHALE TWO (2) PUFFS BY MOUTH TWICE DAILY INSTRUCTED lisinopril (ZESTRIL) 10 mg tablet Take 1 tablet by mouth once daily. chlorthalidone (HYGROTON) 25 mg tablet Take 1 tablet by mouth once daily. rivaroxaban (XARELTO) 20 mg tablet Take 1 tablet by mouth daily with dinner. albuterol HFA (PROVENTIL HFA, VENTOLIN HFA) 90 mcg/actuation inhaler Inhale 2 Puffs as instructed every 4 hours as needed for wheezing/shortness of breath. albuterol (PROVENTIL) 2.5 mg /3 mL (0.083 %) nebulizer solution Use one vial every 4 hours as needed for wheezing/shortness of breath. Use over 5-15minutes. aspirin, enteric coated (ASPIRIN, ENTERIC COATED) 81 mg EC tablet Take 1 tablet by mouth once daily. metoprolol tartrate, short acting, (LOPRESSOR) 25 mg tablet Take 1 tablet by mouth twice daily. omeprazole (PRILOSEC) 20 mg capsule Take 1 capsule by mouth once daily. (Patient not taking: Reported on 10/11/2023) FAMILY HISTORY Adopted: Yes Family history unknown: Yes Social History Tobacco Use Smoking status: Former Packs/day: 3.00 Years: 30.00 Additional pack years: 0.00 Total pack years: 90.00 Types: Cigarettes Start date: 1981 Quit date: 05/02/2020 Years since quittin.4 Smokeless tobacco: Former Types: Snuff Quit date: 05/02/2020 Tobacco comments: Age 16-05/02/2019 Vaping Use Vaping Use: Former Substance Use Topics Alcohol use: Not Currently Drug use: Never Review of Systems Constitutional: Negative for fever. HENT: Positive for congestion, sinus pain and sore throat. Negative for ear pain and nosebleeds. Respiratory: Positive for cough, sputum production and shortness of breath. Negative for wheezing. Cardiovascular: Negative for chest pain. Musculoskeletal: Negative for neck pain. Skin: Negative for itching and rash. Objective Blood pressure 98/62, pulse 80, temperature 36.8 C (98.3 F), resp. rate 20, weight 94.3 kg (207 lb 14.3 oz), SpO2 93%. Physical Exam Constitutional: General: He is not in acute distress. Appearance: He is not toxic-appearing or diaphoretic. HENT: Head: Normocephalic and atraumatic. Cardiovascular: Rate and Rhythm: Normal rate and regular rhythm. Heart sounds: Normal heart sounds, S1 normal and S2 normal. Pulmonary: Effort: Pulmonary effort is normal. Breath sounds: Examination of the right-lower field reveals decreased breath sounds. Examination of the left-lower field reveals decreased breath sounds. Decreased breath sounds present. No wheezing, rhonchi or rales. Lymphadenopathy: Cervical: No cervical adenopathy. Right cervical: No superficial cervical adenopathy. Left cervical: No superficial cervical adenopathy. Neurological: Mental Status: He is alert and oriented to person, place, and time. Gait: Gait is intact. ASSESSMENT/PLAN: 1. Sinobronchitis - ICD9: 473.9, 490, ICD10: J32.9, J40 (primary diagnosis) No xray at time of exam - Will begin treatment with Doxycycline - Supportive care with plenty of fluids, rest, and analgesia prn. - Follow up in 3-5 days if symptoms persist or worsen. - PREDNISONE 20 MG TABLET - DOXYCYCLINE HYCLATE 100 MG TABLET 2. History of COPD - ICD9: V12.69, ICD10: Z87.09 - PREDNISONE 20 MG TABLET Varinder Rey APRN.[employer]SISTANT [employer]ER [employer]ER documented in this encounter [facility] 10-02-2023 Telephone encounter Note 07/30/23 last appointment [facility] 10-02-2023 Miscellaneous Notes 07/30/23 last appointment documented in this encounter [facility] 08-22-2023 History of Present illness Narrative Images from the original note were not included. CC: Patient presents with: 15 week follow up HPI Shawna Prajapati is a 58 year old male who presents today for follow up regarding abnormal lab values, lower leg edema and medication changes. -On 07/17/23 added Chlorthalidone 25mg daily for increased bilateral lower leg edema and reduced the Lisinopril to 10mg daily. The patient has been tolerating this change and reports improvement with his edema. He is not wearing the compression stockings at this time because his only source of footwear is flip flops. -On 07/25/23 the patient was advised to stop Atorvastatin due to a significant increase with his hepatic functions 07/23/23. The patient denies any ETOH, smoking or illicit drug use. He had repeat labs done 08/05/23 to re-evaluate the liver enzymes. -He has a small injury at his left great toe. The area is clean and dry. He reports using neosporin and band aids. The surrounding skin is intact and he denies any drainage. - He is homeless with no access to electricity. He is currently living in his jeep. This prevent him from cooking, using his nebulizer and CPAP machine. He sleeps in the drivers seat. He continues to have persistent SOB, orthopnea and exercise intolerance. He has recently seen his [employer] 07/30/23. Review of Systems Constitutional: Positive for activity change. Negative for appetite change, chills and fever. Respiratory: Positive for shortness of breath. Negative for cough, chest tightness and wheezing. Cardiovascular: Positive for leg swelling. Negative for chest pain and palpitations. Gastrointestinal: Negative for abdominal distention, blood in stool, constipation and diarrhea. Skin: Positive for wound. Negative for color change. Neurological: Negative for dizziness, speech difficulty, weakness and headaches. Psychiatric/Behavioral: Negative for confusion, dysphoric mood and suicidal ideas. The patient is not nervous/anxious. PAST MEDICAL HISTORY Diagnosis Date Asthma 1990 Chronic deep vein thrombosis (DVT) of calf muscle vein of right lower extremity ([facility]) 03/27/2023 COPD (chronic obstructive pulmonary disease) ([facility]) 2021 Coronary artery disease COVID-19 07/05/2021 EIC (epidermal inclusion cyst) 11/26/2019 Fibromyalgia 10/28/2016 Folliculitis 11/26/2019 GERD (gastroesophageal reflux disease) 01/27/2019 Hyperlipidemia 07/17/2021 Hypertension 07/17/2021 Inguinal hernia Irregular heartbeat NSTEMI (non-ST elevation myocardial infarction) ([facility]) 05/03/2020 [place], [place] MARGARITO on CPAP 2012 with nocturnal O2. Pancreatitis, chronic (HCC) 09/07/2019 Seborrheic dermatitis 11/26/2019 Shingles outbreak 09/12/2021 Spinal stenosis, lumbar region with neurogenic claudication 11/20/2015 PAST SURGICAL HISTORY Procedure Laterality Date CC CORONARY STENT 05/04/2020 [facility] to [facility], [facility] HERNIA REPAIR HX Right 1964 inguinal HERNIA REPAIR HX Left 1990 inguinal LAMINECTOMY,LUMBAR 11/08/2021 Dr. Cristóbal Maldonado ALLERGIES Cabbage, Lettuce, Onion Extract, and Garlic Oil MEDICATIONS lisinopril (ZESTRIL) 10 mg tablet Take 1 tablet by mouth once daily. chlorthalidone (HYGROTON) 25 mg tablet Take 1 tablet by mouth once daily. rivaroxaban (XARELTO) 20 mg tablet Take 1 tablet by mouth daily with dinner. omeprazole (PRILOSEC) 20 mg capsule Take 1 capsule by mouth once daily. albuterol HFA (PROVENTIL HFA, VENTOLIN HFA) 90 mcg/actuation inhaler Inhale 2 Puffs as instructed every 4 hours as needed for wheezing/shortness of breath. BREZTRI AEROSPHERE 160-9-4.8 mcg/actuation HFA aerosol inhaler INHALE TWO (2) PUFFS TWICE DAILY INSTRUCTED albuterol (PROVENTIL) 2.5 mg /3 mL (0.083 %) nebulizer solution Use one vial every 4 hours as needed for wheezing/shortness of breath. Use over 5-15minutes. aspirin, enteric coated (ASPIRIN, ENTERIC COATED) 81 mg EC tablet Take 1 tablet by mouth once daily. metoprolol tartrate, short acting, (LOPRESSOR) 25 mg tablet Take 1 tablet by mouth twice daily. FAMILY HISTORY Adopted: Yes Family history unknown: Yes Social History Tobacco Use Smoking status: Former Packs/day: 3.00 Years: 30.00 Additional pack years: 0.00 Total pack years: 90.00 Types: Cigarettes Start date: 1981 Quit date: 05/02/2020 Years since quittin.3 Smokeless tobacco: Former Types: Snuff Quit date: 05/02/2020 Tobacco comments: Age 16-05/02/2019 Vaping Use Vaping Use: Former Substance Use Topics Alcohol use: Not Currently Drug use: Never BP 118/78 Pulse (!) 57 Resp 14 Wt 88.9 kg (196 lb) SpO2 97% BMI 30.70 kg/m Physical Exam Constitutional: General: He is not in acute distress. Appearance: Normal appearance. Cardiovascular: Rate and Rhythm: Normal rate and regular rhythm. Pulses: Radial pulses are 2+ on the right side and 2+ on the left side. Dorsalis pedis pulses are 1+ on the right side and 1+ on the left side. Posterior tibial pulses are 1+ on the right side and 1+ on the left side. Heart sounds: Normal heart sounds. No murmur heard. Comments: Bilateral lower leg blanchable erythema Pulmonary: Effort: Pulmonary effort is normal. Breath sounds: Decreased breath sounds present. Abdominal: General: Bowel sounds are normal. There is no abdominal bruit. Palpations: Abdomen is soft. Tenderness: There is abdominal tenderness. Comments: Patient self reports chronic intermittent pain from old hernia. Musculoskeletal: Right lower le+ Pitting Edema present. Left lower le+ Pitting Edema present. Legs: Feet: Comments: Bilateral lower leg blanchable erythema Feet: Right foot: Skin integrity: No ulcer or blister. Left foot: Skin integrity: Erythema present. No ulcer or blister. Comments: 0.25 cm diameter partially healed scabbed wound. No drainage, warmth or change in color noted. Surrounding skin intact. Lymphadenopathy: Cervical: No cervical adenopathy. Neurological: Mental Status: He is alert. Psychiatric: Behavior: Behavior is cooperative. DATA REVIEWED: Most recent labs ASSESSMENT/PLAN: 1. Primary hypertension - ICD9: 401.9, ICD10: I10 (primary diagnosis) - Controlled - Factors affecting control: diet adherence, lack of exercise, food insecurity, and unstable living situation - Continue current medications - Encouraged sodium restriction, DASH or Mediterranean diet - Recommend regular aerobic exercise - Follow up in 3 months for hypertension visit - BASIC METABOLIC PANEL 2. Bilateral edema of lower extremity - ICD9: 782.3, ICD10: R60.0 Improved since starting chlorthalidone - Continue current medications - Elevate legs when possible - Use compression stockings 3. Abnormal finding on liver function - ICD9: 794.8, ICD10: R94.5 ALT and AST are now WNL - Do not restart Atorvastatin 4. Hyperlipidemia, unspecified hyperlipidemia type - ICD9: 272.4, ICD10: E78.5 See #3 - Barriers to control: diet adherence, lack of exercise, food insecurity, unstable living situation, and homeless - Counseled on healthy diet and regular exercise - Repeat lipid panel in 3 months - LIPID PANEL BASIC 5. Abrasion of foot or toe, left, initial encounter - ICD9: 917.0, ICD10: S90.812A Partially healed/scabbed - Keep wound clean and dry - Apply OTC atb ointment after cleansing - Discussed importance of monitoring for signs of infection. Prescription instructions reviewed with patient as applicable. Potential red flag symptoms discussed with the patient. Reviewed appropriate action plan to take if red flag symptoms occur. Patient agreeable to treatment plan. Leah Shaikh APRN.ASSISTANT TODDLER TEACHER documented in this encounter [facility] 08-07-2023 History of Present illness Narrative Patient is homeless cancelled procedures and office cancelled EGD and colonoscopy orders. Patient will not be doing his procedures Orders placed for EGD/ Colonoscopy. Pt. had consult with Win Gorman 10/02/22. Please call to schedule. Laura Cochran RN documented in this encounter [facility] 07-30-2023 History of Present illness Narrative Patient: Shawna Prajapati PCP: Samir Jordan MD CC: follow up HPI: Shawna Prajapati 58 year old male former 90 pack year smoker, quitting in 2020 with PMH significant for obesity, asthma COPD overlap, GOLD stage 3, GERD, HLD, HTN, MARGARITO on CPAP, CAD s/p stents, allergies requiring IT in past, COVID 06/2021, who presents for follow-up visit. Current maintenance therapy with Breztri and as needed Albuterol. Today, patient reports daily cough productive of white thick phlegm. No hemoptysis. No wheezing. Exertional dyspnea with walking from parking lot into office. PAST MEDICAL HISTORY Diagnosis Date Asthma 1990 Chronic deep vein thrombosis (DVT) of calf muscle vein of right lower extremity ([facility]) 03/27/2023 COPD (chronic obstructive pulmonary disease) ([facility]) 2021 Coronary artery disease COVID-19 07/05/2021 EIC (epidermal inclusion cyst) 11/26/2019 Fibromyalgia 10/28/2016 Folliculitis 11/26/2019 GERD (gastroesophageal reflux disease) 01/27/2019 Hyperlipidemia 07/17/2021 Hypertension 07/17/2021 Inguinal hernia Irregular heartbeat NSTEMI (non-ST elevation myocardial infarction) ([facility]) 05/03/2020 [place], [place] MARGARITO on CPAP 2012 with nocturnal O2. Pancreatitis, chronic ([facility]) 09/07/2019 Seborrheic dermatitis 11/26/2019 Shingles outbreak 09/12/2021 Spinal stenosis, lumbar region with neurogenic claudication 11/20/2015 Allergies: Cabbage Other: See Comments Comment:dysphagia Lettuce Other: See Comments Comment:dysphagia Onion Extract Vomiting Garlic Oil GI Upset lisinopril (ZESTRIL) 10 mg tablet Take 1 tablet by mouth once daily. chlorthalidone (HYGROTON) 25 mg tablet Take 1 tablet by mouth once daily. rivaroxaban (XARELTO) 20 mg tablet Take 1 tablet by mouth daily with dinner. atorvastatin (LIPITOR) 80 mg tablet Take 1 tablet by mouth once daily. omeprazole (PRILOSEC) 20 mg capsule Take 1 capsule by mouth once daily. albuterol HFA (PROVENTIL HFA, VENTOLIN HFA) 90 mcg/actuation inhaler Inhale 2 Puffs as instructed every 4 hours as needed for wheezing/shortness of breath. BREZTRI AEROSPHERE 160-9-4.8 mcg/actuation HFA aerosol inhaler INHALE TWO (2) PUFFS TWICE DAILY INSTRUCTED albuterol (PROVENTIL) 2.5 mg /3 mL (0.083 %) nebulizer solution Use one vial every 4 hours as needed for wheezing/shortness of breath. Use over 5-15minutes. aspirin, enteric coated (ASPIRIN, ENTERIC COATED) 81 mg EC tablet Take 1 tablet by mouth once daily. metoprolol tartrate, short acting, (LOPRESSOR) 25 mg tablet Take 1 tablet by mouth twice daily. Social History Tobacco Use Smoking status: Former Packs/day: 3.00 Years: 30.00 Additional pack years: 0.00 Total pack years: 90.00 Types: Cigarettes Start date: 1981 Quit date: 05/02/2020 Years since quittin.2 Smokeless tobacco: Former Types: Snuff Quit date: 05/02/2020 Tobacco comments: Age 16-05/02/2019 Vaping Use Vaping Use: Former Substance Use Topics Alcohol use: Not Currently Drug use: Never Family History Adopted: Yes Family history unknown: Yes PAST SURGICAL HISTORY Procedure Laterality Date CC CORONARY STENT 05/04/2020 [facility] to [facility] HERNIA REPAIR HX Right 1964 inguinal HERNIA REPAIR HX Left 1990 inguinal LAMINECTOMY,LUMBAR 11/08/2021 Dr. Cristóbal Maldonado I reviewed the past medical history, family history, social history and surgical history with changes noted above and updated in EMR. IMMUNIZATIONS Prevnar - 06/2022 Pneumovax 23 - xx Influenza - 2022 COVID-19 - most recent 02/2023 ROS: CONSTITUTIONAL: No fevers, chills, nightsweats, unintended weight loss HEENT: Denies nasal congestion/sinus symptoms, allergy problems. CARDIOVASCULAR: No chest pain, palpitations, orthopnea, PND. Edema PULM: See HPI GI: No dysphagia/odynophagia, problematic reflux NEURO: No new balance problems, peripheral weakness/paresthesias or numbness of concern. MUSC-SKEL: Back pain INTEGUMENTARY: No new skin changes or rashes PHYSICAL EXAMINATION: BP 138/72 Pulse (!) 58 Wt 92.4 kg (203 lb 9.6 oz) SpO2 93% BMI 31.89 kg/m Gen: No acute distress. Cooperative with examination. HEENT: Normocephalic. Sclera, conjunctiva clear. Upper plate. No thrush. Resp: No stridor, accessory respiratory muscle use, supra-sternal or intercostal retractions. No wheezes, crackles. CV: Regular rythm. Heart tones normal. Radial pulses normal. Ext: Warm and well perfused. No clubbing, cyanosis. Mild edema. Compression stockings in place. Skin: No rash, ecchymoses. Neuro: Mental status normal. Affect normal. No tremor. DATA: Labs: Component Ref Range & Units 8 mo ago Alpha 1 Antitrypsin 90 - 200 mg/dL 167 Imaging / Diagnostic Studies: DATE OF EXAM: Apr 23 2023 10:47AM WOX [id number] - XR CHEST 2V FRONTAL/LAT / PROCEDURE REASON: Viral URI with cough * * * * Physician Interpretation * * * * EXAMINATION: CHEST RADIOGRAPH (2 VIEW FRONTAL & LATERAL) PATIENT/TECHNOLOGIST PROVIDED HISTORY: cough and congestion for 5 days CLINICAL HISTORY: 57 years old Male with Viral URI with cough MQ: [id number] IMPRESSION: No acute radiographic abnormality. Emphysema. EXAM DATE/TIME: 04/23/2023 10:47 AM COMPARISON: Chest radiograph 01/15/2023, CT 11/06/2022 RESULT: Lines, tubes, and devices: None. Lungs and pleura: Emphysema and mild biapical pleural-parenchymal scarring. No consolidation. No pleural effusion or pneumothorax. Cardiomediastinal silhouette: Normal cardiomediastinal silhouette. Coronary artery stents. Bones and soft tissues: Endplate degenerative changes in the thoracic spine. DATE OF EXAM: Nov 06 2022 2:56PM [facility] 0562 - CT LUNG SCREEN WO IVCON / CLINICAL HISTORY: Lung cancer LDCT screening ? absence of signs or symptoms of lung cancer. Personal history of nicotine dependence. COMPARISON: No prior RESULT: Are nodules present? Yes, 1-5 nodules Nodule 1: This Solid nodule is located in the Right Upper Lobe on slice number 62 with an average diameter of 4.4 mm (5.0 mm x 3.8 mm). Nodule 2: This Solid nodule is located in the Left Lower Lobe on slice number 156 with an average diameter of 3.9 mm (4.6 mm x 3.2 mm). Nodule 3: This Solid nodule is located in the Left Upper Lobe on slice number 61 with an average diameter of 1.8 mm (2.0 mm x 1.5 mm). Other findings: Diffuse bronchial wall thickening consistent with chronic airway inflammatory changes. Mild biapical scarring, right side greater than left. Mild subsegmental atelectasis/scarring within the inferior lingula and medial segment of the right middle lobe. No thoracic lymphadenopathy. Thoracic aorta and central pulmonary arteries are normal in caliber. The heart is not enlarged. Multilevel degenerative disc and endplate changes with vacuum disc phenomenon and osteophyte formation present within the thoracic spine. No acute process in the imaged upper abdomen. Emphysema: Moderate (25-50%), Centrilobular and scattered paraseptal, Upper lobe Coronary Artery Calcifications: Circumflex stent present; Left Anterior Descending stent present; Right Coronary none IMPRESSION: LungRADS category: 2 LungRADS modifier: None ASSESSMENT/PLAN: 1. Stage 3 severe COPD by GOLD classification ([facility]) - ICD9: 496, ICD10: J44.9 (primary diagnosis) Continue triple therapy with Breztri with as needed albuterol. Patient has stopped smoking. 2. Former cigarette smoker - ICD9: V15.82, ICD10: Z87.891 Former smoker with sequelae of COPD Enrolled in lung cancer screening. 3. Lung nodules - ICD9: 793.19, ICD10: R91.8 See #2 Portions of this documentation were copied and pasted from previous office visit notes in order to provide a cohesive continuity of the history. The note has been reviewed and edited and updated as necessary. Calli Desir PA-C documented in this encounter [facility] 07-18-2023 Miscellaneous Notes Order refaxed to [facility]. Mildred Mitchell LPN ASSESSMENT/PLAN: 1. Chronic deep vein thrombosis (DVT) of calf muscle vein of right lower extremity (HCC) - ICD9: 453.52, ICD10: I82.561 - COMPRESSION STOCKINGS Samir Jordan MD Patient calls mad to report that the compression hose sent to [facility] are not covered by his insurance. Patient doesn't have $85 to pay for them but reports he must have them. He reports that he spoke to his insurance and they said they would pay for them. Contacted Roseanna at [facility] and reviewed patient's diagnosis list. None of patients current diagnosis would cover compression hose. The list of diagnosis reviewed with Roseanna the only one that might work would be Z86.718 Personal history of other venous thrombosis and embolism (if patient falls under that diagnosis). Would need new prescription if diagnosis code is accurate for patient. Please review and advise. Rhea Fuentes RN documented in this encounter [facility] 07-17-2023 Miscellaneous Notes Thank you. Sw spoke with patient regarding housing options. Patient reports that he is not able to stay at [facility] due to issues with others staying there. Patient reports that he has also had a [employer] housing voucher, but they did not have any housing options when he has applied to the different homes on this list due to long wait lists. Patient reports that he has submitted applications to other rental housing options, but has been told there is a 2 year wait list. Sw asked if patient has been to [facility] and patient went in to a story about going to [employer] and only give gas cards to people that were going to court for substance abuse. Sw got patient back to talking about housing and patient notes that [employer] did not have any other housing options. Patient reports that he wants to find an old school bus or farm truck that he can covert in to a home. Sw noted that if she learned about other housing assistance option available, Sw would let patient know. Patient then went on to tell Sw about his multiple dads and adoptive parents. Patient states that he wants to live someone where no one does drugs as he does not do drugs or sell them. Sw ended conversation with letting patient know if any new housing options became available she would let patient know. Patient is not 60 or over, so older adult housing options are not available. documented in this encounter [facility] 07-17-2023 History of Present illness Narrative This note was created using [employer]. Subjective Shawna Prajapati is a 58 year old male. He continued with symptomatic edema of both legs. We discussed his PVR test was normal. He still lived in his jeep and unable to elevate his legs. His hypertension was now controlled. Review of Systems Constitutional: Negative for appetite change and unexpected weight change. Respiratory: Negative for chest tightness and shortness of breath. Cardiovascular: Positive for leg swelling. Negative for chest pain and palpitations. Gastrointestinal: Negative. Genitourinary: Negative for difficulty urinating. 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 Muscle Vein of Right Lower Extremity (Hcc) Gastroesophageal Reflux Disease Without Esophagitis Delusions ([facility]) Current Outpatient Medications Medication Sig rivaroxaban (XARELTO) 20 mg tablet Take 1 tablet by mouth daily with dinner. hydroCHLOROthiazide 12.5 mg capsule Take 1 capsule by mouth once daily. atorvastatin (LIPITOR) 80 mg tablet Take 1 tablet by mouth once daily. lisinopril (ZESTRIL) 20 mg tablet Take 1 tablet by mouth once daily. omeprazole (PRILOSEC) 20 mg capsule Take 1 capsule by mouth once daily. albuterol HFA (PROVENTIL HFA, VENTOLIN HFA) 90 mcg/actuation inhaler Inhale 2 Puffs as instructed every 4 hours as needed for wheezing/shortness of breath. BREZTRI AEROSPHERE 160-9-4.8 mcg/actuation HFA aerosol inhaler INHALE TWO (2) PUFFS TWICE DAILY INSTRUCTED albuterol (PROVENTIL) 2.5 mg /3 mL (0.083 %) nebulizer solution Use one vial every 4 hours as needed for wheezing/shortness of breath. Use over 5-15minutes. aspirin, enteric coated (ASPIRIN, ENTERIC COATED) 81 mg EC tablet Take 1 tablet by mouth once daily. metoprolol tartrate, short acting, (LOPRESSOR) 25 mg tablet Take 1 tablet by mouth twice daily. No current facility-administered medications for this visit. Objective Blood Pressure 126/70 (BP Site: Left Arm, BP Position: Sitting, BP Cuff Size: Large Adult) Pulse 80 Temperature 36.9 C (98.4 F) (Temporal) Respiration 16 Weight 90.3 kg (199 lb) Body Mass Index 31.17 kg/m Physical Exam Constitutional: General: He is not in acute distress. HENT: Head: Normocephalic. Cardiovascular: Rate and Rhythm: Normal rate and regular rhythm. Heart sounds: No murmur heard. No gallop. Pulmonary: Effort: No respiratory distress. Breath sounds: No wheezing or rales. Musculoskeletal: General: No tenderness. Right lower le+ Pitting Edema present. Left lower le+ Pitting Edema present. Neurological: Mental Status: He is alert. Assessment and Plan 1. Chronic deep vein thrombosis (DVT) of calf muscle vein of right lower extremity (HCC) - ICD9: 453.52, ICD10: I82.561 (primary diagnosis) Continue DOAC. 2. Bilateral edema of lower extremity - ICD9: 782.3, ICD10: R60.0 Venous insufficiency. - COMPRESSION STOCKINGS - CHLORTHALIDONE 25 MG TABLET. New medication. Discussed medication dosage, usage, goals of therapy, and side effects. 3. Primary hypertension - ICD9: 401.9, ICD10: I10 - Improving control - LISINOPRIL 10 MG TABLET. Dose reduced due to #2. 4. Homelessness - ICD9: V60.0, ICD10: Z59.00 Consult INTEGRATED PEST MANAGEMENT TECHNICIAN. Samir Jordan MD documented in this encounter [facility] 07-11-2023 Miscellaneous Notes Contacted patient in regards to scopes scheduled on 09/26/2023 in [place]. Patient refused all visits and did not want to reschedule as he is homeless and unable to complete any prep Petty Sanchez Hopper Operator Patient called needs a call back stacey that's what his meassage said. Sharmila Galarza documented in this encounter [facility] 06-26-2023 History of Present illness Narrative This note was created using [employer]. Subjective Patient presents with: F/U 3 Month Shawna Prajapati is a 57 year old male. His hypertension was not controlled. He lost hydrochlorothiazide in the mail and had not started back on this yet. His legs were still swollen, and his toes hurt and tingle. He was seen in the ED for COPD exacerbation. This improved but was relapsing. His podagra was not much better, and seemed more diffuse now. Homelessness was affecting regularity of his medications, breathing treatments, etc. He was still applying for an apartment. Review of Systems Constitutional: Negative for chills and fever. Respiratory: Positive for cough and shortness of breath. Negative for chest tightness and wheezing. Cardiovascular: Positive for leg swelling. Negative for chest pain and palpitations. Skin: Positive for color change. Neurological: Positive for numbness. Negative for weakness. 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 Muscle Vein of Right Lower Extremity (Hcc) Gastroesophageal Reflux Disease Without Esophagitis Delusions (Hcc) Social History Tobacco Use Smoking status: Former Packs/day: 3.00 Years: 30.00 Additional pack years: 0.00 Total pack years: 90.00 Types: Cigarettes Start date: 1981 Quit date: 05/02/2020 Years since quittin.1 Smokeless tobacco: Former Types: Snuff Quit date: 05/02/2020 Tobacco comments: Age 16-05/02/2019 Vaping Use Vaping Use: Former Substance Use Topics Alcohol use: Not Currently Drug use: Never Current Outpatient Medications Medication Sig hydroCHLOROthiazide 12.5 mg capsule Take 1 capsule by mouth once daily. atorvastatin (LIPITOR) 80 mg tablet Take 1 tablet by mouth once daily. lisinopril (ZESTRIL) 20 mg tablet Take 1 tablet by mouth once daily. omeprazole (PRILOSEC) 20 mg capsule Take 1 capsule by mouth once daily. rivaroxaban (XARELTO) 20 mg tablet Take 1 tablet by mouth daily with dinner. albuterol HFA (PROVENTIL HFA, VENTOLIN HFA) 90 mcg/actuation inhaler Inhale 2 Puffs as instructed every 4 hours as needed for wheezing/shortness of breath. BREZTRI AEROSPHERE 160-9-4.8 mcg/actuation HFA aerosol inhaler INHALE TWO (2) PUFFS TWICE DAILY INSTRUCTED albuterol (PROVENTIL) 2.5 mg /3 mL (0.083 %) nebulizer solution Use one vial every 4 hours as needed for wheezing/shortness of breath. Use over 5-15minutes. aspirin, enteric coated (ASPIRIN, ENTERIC COATED) 81 mg EC tablet Take 1 tablet by mouth once daily. metoprolol tartrate, short acting, (LOPRESSOR) 25 mg tablet Take 1 tablet by mouth twice daily. predniSONE (DELTASONE) 10 mg tablet TAKE BY MOUTH 4 TABLETS DAILY FOR 2 DAYS, THEN 3 TABLETS DAILY FOR 2 DAYS, THEN 2 TABLETS DAILY FOR 2 DAYS, THEN 1 TABLET DAILY FOR 2 DAYS. (Patient not taking: Reported on 06/26/2023) No current facility-administered medications for this visit. Objective BP 146/82 (BP Site: Left Arm, BP Position: Sitting, BP Cuff Size: Large Adult) Pulse 64 Temp 36.4 C (97.6 F) (Temporal) Wt 92.7 kg (204 lb 6.4 oz) BMI 32.01 kg/m Physical Exam Constitutional: General: He is not in acute distress. Cardiovascular: Rate and Rhythm: Normal rate and regular rhythm. Pulses: Dorsalis pedis pulses are 1+ on the right side and 1+ on the left side. Posterior tibial pulses are 0 on the right side and 0 on the left side. Heart sounds: No murmur heard. No gallop. Pulmonary: Effort: No respiratory distress. Breath sounds: No wheezing, rhonchi or rales. Musculoskeletal: Right lower le+ Pitting Edema present. Left lower le+ Pitting Edema present. Comments: Toes cool, bluish, capillary refill within normal limits. Neurological: Mental Status: He is alert. Assessment and Plan 1. Pain in toes of both feet - ICD9: 729.5, ICD10: M79.674, M79.675 (primary diagnosis) Check for peripheral vascular disease. - PVR ANK PRESS [facility] 2. Chronic deep vein thrombosis (DVT) of calf muscle vein of right lower extremity (HCC) - ICD9: 453.52, ICD10: I82.561 Refilled. - RIVAROXABAN 20 MG TABLET 3. Chronic obstructive pulmonary disease, unspecified COPD type (HCC) - ICD9: 496, ICD10: J44.9 Continue medications. 4. 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, unspecified vessel or lesion type - ICD9: 414.01, ICD10: I25.10 Stable. 5. Primary hypertension - ICD9: 401.9, ICD10: I10 - Worsening control - Continue current medications - Reviewed risks of hypertension and principles of treatment - Start hydrochlorothiazide. No medication changes for now. Samir Jordan MD documented in this encounter [facility] 06-04-2023 History of Present illness Narrative This note was created using [employer]. Subjective Patient presents with: Right foot pain Shawna Prajapati is a 57 year old male. He was concerned about frostbite but his toes did not turn blue or black, and were red. Pain was worse with local pressure, generally in the right forefoot. Review of Systems Constitutional: Negative for fatigue and fever. Respiratory: Negative for chest tightness and shortness of breath. Cardiovascular: Positive for leg swelling. Negative for chest pain and palpitations. Gastrointestinal: Negative for diarrhea, nausea and vomiting. Skin: Negative for wound. 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 Muscle Vein of Right Lower Extremity (Hcc) Gastroesophageal Reflux Disease Without Esophagitis Delusions (Hcc) Current Outpatient Medications Medication Sig hydroCHLOROthiazide 12.5 mg capsule Take 1 capsule by mouth once daily. atorvastatin (LIPITOR) 80 mg tablet Take 1 tablet by mouth once daily. lisinopril (ZESTRIL) 20 mg tablet Take 1 tablet by mouth once daily. omeprazole (PRILOSEC) 20 mg capsule Take 1 capsule by mouth once daily. rivaroxaban (XARELTO) 20 mg tablet Take 1 tablet by mouth daily with dinner. albuterol HFA (PROVENTIL HFA, VENTOLIN HFA) 90 mcg/actuation inhaler Inhale 2 Puffs as instructed every 4 hours as needed for wheezing/shortness of breath. BREZTRI AEROSPHERE 160-9-4.8 mcg/actuation HFA aerosol inhaler INHALE TWO (2) PUFFS TWICE DAILY INSTRUCTED albuterol (PROVENTIL) 2.5 mg /3 mL (0.083 %) nebulizer solution Use one vial every 4 hours as needed for wheezing/shortness of breath. Use over 5-15minutes. aspirin, enteric coated (ASPIRIN, ENTERIC COATED) 81 mg EC tablet Take 1 tablet by mouth once daily. metoprolol tartrate, short acting, (LOPRESSOR) 25 mg tablet Take 1 tablet by mouth twice daily. predniSONE (DELTASONE) 10 mg tablet TAKE BY MOUTH 4 TABLETS DAILY FOR 2 DAYS, THEN 3 TABLETS DAILY FOR 2 DAYS, THEN 2 TABLETS DAILY FOR 2 DAYS, THEN 1 TABLET DAILY FOR 2 DAYS. No current facility-administered medications for this visit. Objective BP 120/72 (BP Site: Left Arm, BP Position: Sitting, BP Cuff Size: Large Adult) Pulse 76 Temp 36.9 C (98.4 F) (Temporal) Resp 16 Wt 94.8 kg (208 lb 14.4 oz) BMI 32.72 kg/m Physical Exam Constitutional: Appearance: He is not ill-appearing. Cardiovascular: Rate and Rhythm: Normal rate and regular rhythm. Pulses: Normal pulses. Heart sounds: No murmur heard. No gallop. Pulmonary: Effort: Pulmonary effort is normal. Breath sounds: Normal breath sounds. Musculoskeletal: Right lower le+ Pitting Edema present. Left lower le+ Pitting Edema present. Right foot: Normal capillary refill. Swelling present. No tenderness or crepitus. Normal pulse. Left foot: Normal capillary refill. No tenderness. Normal pulse. Comments: Most tenderness in right big toe. Skin: General: Skin is cool. Findings: Erythema present. Nails: There is no clubbing. Neurological: Mental Status: He is alert. Assessment and Plan 1. 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 - KETOROLAC 30 MG/ML (1 ML) INJECTION SOLUTION Discussed medication dosage, usage, goals of therapy, and side effects. - PREDNISONE 10 MG TABLET 2. Chronic deep vein thrombosis (DVT) of calf muscle vein of right lower extremity (HCC) - ICD9: 453.52, ICD10: I82.561 Risks reviewed. 3. Primary hypertension - ICD9: 401.9, ICD10: I10 - Controlled Samir Jordan MD documented in this encounter [facility] 04-23-2023 History of Present illness Narrative Radiology Service Progress Note PATIENT NAME: Shawna Prajapati DATE OF SERVICE: April 23, 2023 TIME: 10:42 AM PATIENT IDENTITY VERIFICATION COMPLETED USING TWO (2) IDENTIFIERS: Name and Date of confirmed by patient verbally. FALL SCREENING: Has the patient had 2 falls in the last year or 1 fall with injury or currently using an Ambulatory Assistive Device (Walker, Cane, Wheelchair, Crutches, etc.)? No PATIENT GENDER DATA: Male PATIENT RELEVANT IMPLANT DATA REVIEWED: Not Applicable RADIOLOGY DEPARTMENT: General X-ray: Exam(s) Completed: Chest X-Ray PERIPHERAL IV DATA: Not applicable SIGNED BY: RT Barb(R) April 23, 2023 10:42 AM documented in this encounter [facility] 03-27-2023 History of Present illness Narrative This note was created using CAD Bestriter. Subjective Shawna Prajapati is a 57 year old male. He continued to have issues with edema, and right was also felt to be heavy. He did not refill Xarelto. He was still homeless and his medications were being delivered by a packaging pharmacy. He declined mental health referrals. Review of Systems Constitutional: Negative for fatigue and fever. HENT: Negative. Respiratory: Negative for cough and shortness of breath. Cardiovascular: Positive for leg swelling. Negative for chest pain and palpitations. Gastrointestinal: Negative for blood in stool. Genitourinary: Negative for difficulty urinating. Neurological: Negative for dizziness and headaches. Psychiatric/Behavioral: Positive for behavioral problems. ACTIVE PROBLEM LIST Seborrheic Dermatitis Asthma Copd (Chronic Obstructive Pulmonary Disease) (Hcc) Margar[place] On Cpap Hyperlipidemia Hypertension Coronary Artery Disease Involving [place] [facility] Without Angina Pectoris Obesity, Class I, Bmi 30-34.9 Homelessness Social History Tobacco Use Smoking status: Former Packs/day: 3.00 Years: 30.00 Additional pack years: 0.00 Total pack years: 90.00 Types: Cigarettes Start date: 1981 Quit date: 05/02/2020 Years since quittin.9 Smokeless tobacco: Former Types: Snuff Quit date: 05/02/2020 Tobacco comments: Age 16-05/02/2019 Vaping Use Vaping Use: Former Substance Use Topics Alcohol use: Not Currently Drug use: Never Current Outpatient Medications Medication Sig albuterol HFA (PROVENTIL HFA, VENTOLIN HFA) 90 mcg/actuation inhaler Inhale 2 Puffs as instructed every 4 hours as needed for wheezing/shortness of breath. BREZTRI AEROSPHERE 160-9-4.8 mcg/actuation HFA aerosol inhaler INHALE TWO (2) PUFFS TWICE DAILY INSTRUCTED albuterol (PROVENTIL) 2.5 mg /3 mL (0.083 %) nebulizer solution Use one vial every 4 hours as needed for wheezing/shortness of breath. Use over 5-15minutes. aspirin, enteric coated (ASPIRIN, ENTERIC COATED) 81 mg EC tablet Take 1 tablet by mouth once daily. metoprolol tartrate, short acting, (LOPRESSOR) 25 mg tablet Take 1 tablet by mouth twice daily. atorvastatin (LIPITOR) 80 mg tablet Take 1 tablet by mouth once daily. lisinopril (ZESTRIL) 20 mg tablet Take 1 tablet by mouth once daily. omeprazole (PRILOSEC) 20 mg capsule Take 1 capsule by mouth once daily. rivaroxaban (XARELTO) 20 mg tablet Take 1 tablet by mouth daily with dinner. No current facility-administered medications for this visit. Objective BP 122/70 (BP Site: Left Arm, BP Position: Sitting, BP Cuff Size: Large Adult) Pulse 76 Resp 18 Wt 94.8 kg (209 lb) SpO2 94% BMI 32.73 kg/m Physical Exam Constitutional: Appearance: He is not ill-appearing or diaphoretic. HENT: Head: Normocephalic. Cardiovascular: Rate and Rhythm: Normal rate and regular rhythm. Heart sounds: No murmur heard. No gallop. Pulmonary: Effort: No respiratory distress. Breath sounds: Rhonchi present. No wheezing or rales. Abdominal: Tenderness: There is no abdominal tenderness. Musculoskeletal: General: No tenderness. Right lower le+ Pitting Edema present. Left lower le+ Pitting Edema present. Neurological: General: No focal deficit present. Mental Status: He is alert. Psychiatric: Attention and Perception: Attention normal. Mood and Affect: Mood normal. Speech: Speech normal. Behavior: Behavior is cooperative. Thought Content: Thought content is delusional. Comments: I want to get better and run a marathon...meet women in [employer]... I am friends with (names female movie stars) and message them. Assessment and Plan 1. Chronic deep vein thrombosis (DVT) of calf muscle vein of right lower extremity (HCC) - ICD9: 453.52, ICD10: I82.561 (primary diagnosis) - Poor adherence. Reiterated need for custodial anticoagulation. - Recheck venous US next vit - RIVAROXABAN 20 MG TABLET 2. Gastroesophageal reflux disease without esophagitis - ICD9: 530.81, ICD10: K21.9 Controlled. - OMEPRAZOLE 20 MG CAPSULE,DELAYED RELEASE 3. Homelessness - ICD9: V60.0, ICD10: Z59.00 He declined need for assistance, [employer]. 4. Primary hypertension - ICD9: 401.9, ICD10: I10 - Controlled - Continue current medications - Discussed need for and benefit of weight loss. BMI 32.73 kg/(m^2) 5. Need for COVID-19 vaccine - ICD9: V04.89, ICD10: Z23 - PFIZER-BIONTECH COVID-19 VACCINE (2022- [place]) AGE 12+ YR 6. Delusions (HCC) - ICD9: 297.9, ICD10: F22 - Referral declined. Samir Jordan MD documented in this encounter [facility] 03-27-2023 Miscellaneous Notes Patient has been identified by name and date of : Yes, Provider Dr. Jordan Date 03/27/23 Time 10:23 am Pharmacy phones for refill(s): Requested Prescriptions Pending Prescriptions Disp Refills atorvastatin (LIPITOR) 80 mg tablet 30 tablet 2 Sig: Take 1 tablet by mouth once daily. lisinopril (ZESTRIL) 20 mg tablet 30 tablet 2 Sig: Take 1 tablet by mouth once daily. Date of last office visit in primary care: 01/15/2023 Date of next office visit in primary care: 03/27/2023 Last 2 Encounter Wt Readings: Date: Wt: 01/28/2023 96.2 kg (212 lb) 01/15/2023 98 kg (216 lb) Previous labs/tests for medication: Cholesterol: HDL Cholesterol (mg/dL) Date Value 05/18/2022 27 LDL Cholesterol (mg/dL) Date Value 05/18/2022 69 ALT (U/L) Date Value 01/15/2023 16 Non HDL Cholesterol (mg/dL) Date Value 05/18/2022 83 Blood Pressure: BUN (mg/dL) Date Value 01/15/2023 9 Sodium (mmol/L) Date Value 01/15/2023 144 Last 1 Encounter BP Readings: Date: BP: 01/28/2023 120/68 Thank you. Radha Macdonald LPN. documented in this encounter [facility] 02-09-2023 Discharge summary Note Date/Time February 09, 2023 2:02pm [facility] Medical Records Department [address] [place] [address] Emergency Department Summary 02/09/23 MR#: [id number] Acct: [id number] Name: SHAWNA PRAJAPATI Rep #:[id number] : 1965 57 From: Tyler Desir MD PCP: Dr. Samir Jordan MD Status:R EG ER Location: ED HPI History of Present Illness Chief Complaint: Back Informant: patient Narrative Narrative: 3 days of gradual onset soreness in his low back without any associated neurologic symptoms, or systemic symptoms such as fevers or chills. Yesterday he noticed a small amount of drainage coming from there. [facility] noticed that the pain was worse and hurts more to walk so he presents to the. He had surgery on his low back a year or more ago. [facility] Medical History Asthma CAD (coronary artery disease) History of COPD History of [place] (myocardial infarction) Homelessness HTN (hypertension) Hyperlipemia Lumbar stenosis Myocardial infarct MARGARITO (obstructive sleep apnea) Home Medications albuterol sulfate 90 mcg/actuation aerosol inhaler (Ventolin HFA) 1 inh inhalation BID SOB 11/09/21 [History Last Taken 11/09/21] lisinopril 20 mg tablet 20 mg PO DAILY bp 11/09/21 [History Last Taken 11/09/21] aspirin 81 mg tablet,delayed release 81 mg PO DAILY 04/12/22 [History Last Taken Unknown] atorvastatin 80 mg tablet 80 mg PO QHS 04/12/22 [History Last Taken Unknown] metoprolol tartrate 25 mg tablet 25 mg PO DAILY 04/12/22 [History Last Taken Unknown] budesonide 160 mcg-glycopyr 9 mcg-formot 4.8 mcg/actuation HFA inhaler (Breztri Aerosphere) 2 inh inhalation BID 02/09/23 [History Last Taken Unknown] rivaroxaban 15 mg (42)-20 mg (9) tablets in a starter pack (Xarelto DVT-PE Treatment 30-Day Starter) 1 tab PO DAILY 02/09/23 [History Last Taken Unknown] sulfamethoxazole 800 mg-trimethoprim 160 mg tablet 1 tab PO BID #14 TABLETS 02/09/23 [Rx Last Taken Unknown] Allergy/AdvReac Type Severity Reaction Status Date / Time cabbage Allergy can not Verified 02/09/23 13:30 swallow lettuce Allergy can not Verified 02/09/23 13:30 swallow onion Allergy Vomiting Verified 02/09/23 13:30 peanut Allergy Anaphylaxis Verified 02/09/23 13:30 garlic AdvReac Mild Abd Verified 02/09/23 13:30 cramps/diarrhea Family History Father No problems noted. Family History no significant family his Surgical History H/O hernia repair Stented coronary artery Social History housing: homeless other: Patient is currently living out of his car and is supposed to be on oxygen Smoking Status: Former smoker alcohol intake: never substance use type: does not use ROS ROS ED Constitutional Constitutional ED: Denies chills or fever(s) Gastrointestinal Gastrointestinal: Denies abdominal pain, constipation, fecal incontinence, nausea or vomiting Genitourinary Genitourinary ED: Reports other Details: no urinary retention ; Denies abdominal discomfort or urinary incontinence Musculoskeletal Musculoskeletal: Reports as per HPI and back pain; Denies neck pain Integumentary Reports abscess and wounds; Denies rash Neurologic Neurologic: Denies headache(s), paresthesias or weakness EXAM Physical Exam Const Vital Signs: 02/09/23 13:30 Temperature 97.4 F L Temperature Source Temporal Pulse Rate 68 Respiratory Rate 18 Blood Pressure 149/110 H Blood Pressure Mean 123 Pulse Ox 96 Oxygen Delivery Method Room Air Positive well nourished and well developed General Appearance ED: well developed and NAD HEENT Negative for trauma or tenderness Eyes PERRL and EOMs intact bilaterally Neck full ROM and supple GI normal to inspection, nondistended, normoactive bowel sounds, soft to palpation and non-tender Back/Spine Back/Spine Narrative: Well-healed surgical incision midline lumbosacral spine, there is a very small superficial abscess with mild amount of surrounding erythema within the mid-caudal aspect of the incision, this is not dehiscence it is a small abscess. There is small amount of purulent material easily expressible from it, and it isnot fluctuant. It is tender. Lumbar Spine / Lower Back: ROM limited, paraspinal muscle tenderness and straight leg raise negative bilaterally; Negative for lumbar spinal tenderness Extremity normal to inspection, full ROM and no pedal edema Neuro oriented x3 and no sensory deficits noted Sensorium / Orientation: alert Motor Exam: strength 5/5 throughout and clonus absent Deep Tendon Reflexes: Rt Patellar (L4): 2+, Lt Patellar (L4): 2+, Rt Ankle (S1):2+ and Lt Ankle (S1): 2+ Deep Tendon Reflexes Back: Rt Patellar (L4): 2+, Lt Patellar (L4): 2+, Rt Ankle (S1): 2+ and Lt Ankle (S1): 2+ Plantar Reflex: Downgoing: bilateral Psych mental status grossly normal and thought process normal Skin Skin Narrative: Small abscess superficial in the skin of the low back incision see above MDM MDM MDM Narrative Medical decision making narrative: There are 2 small openings over this abscess, I was able to express purulent material from both of them, and I do not think it will benefit the patient more to perform formal incision and the loculation/drainage. I advised him with regards to soaks, dressing changes, and prescribed him Bactrim and advised closeoutpatient follow-up with his doctor. Discharge Plan Triage Chief Complaint: Back ED Provider: Tyler Desir Dx/Rx/DC Orders Clinical Impression: Cutaneous abscess of back excluding buttocks Instructions: ED Abscess Antibiotic Treatment Only Prescriptions: New sulfamethoxazole-trimethoprim [sulfamethoxazole-trimethoprim] 800-160 mg tablet 1 tab PO BID Qty: 14 0RF No Action lisinopril 20 mg tablet 20 mg PO DAILY albuterol sulfate [Ventolin HFA] 90 mcg/actuation HFA aerosol inhaler 1 inh INHALATION BID atorvastatin 80 mg tablet 80 mg PO QHS Patient Comments: TAKE 1 TABLET BY MOUTH AT BEDTIME aspirin 81 mg tablet,delayed release (DR/EC) 81 mg PO DAILY Patient Comments: TAKE 1 TABLET BY MOUTH DAILY metoprolol tartrate 25 mg tablet 25 mg PO DAILY Patient Comments: TAKE 1 TABLET BY MOUTH TWICE DAILY Xarelto DVT-PE Treat 30d Start 15 mg (42)- 20 mg (9) tablets,dose pack 1 tab PO DAILY Patient Comments: TAKE ONE 15MG TABLET BY MOUTH TWICE DAILY WITH FOOD FOR 21 DAYS, THEN TAKE ONE 20MG TABLET ONCE DAILY WITH FOOD FOR 9 DAYS Breztri Aerosphere 160-9-4.8 mcg/actuation HFA aerosol inhaler 2 inh INHALATION BID Patient Comments: INHALE TWO (2) PUFFS BY MOUTH TWICE DAILY INSTRUCTED Primary Care Provider: Samir Jordan Referrals: Samir Jordan MD [Primary Care Provider] - 3-5 Days if not improving Activity Restrictions/Additional Instructions: For the next 2 nights, soaking your low back in bathtub with warm-hot soapy water would be a good idea, patting dry and placing a clean dressing afterwards with antibiotic ointment on it to the affected area. Change the dressing 2-3 times per day for the first couple days then once thereafter until no more drainage on it. Disposition Disposition: Home, Self Care What to do if you have Problems For any increased pain, shortness of breath, bleeding, nausea or vomiting, chestpain, or any unexpected problems, contact your Primary Care Provider. Call [facility] ([phone]) or report to the closest Emergency Room. Call 911 if necessary. 02/09/23 1418 <Electronically signed by Tyler Desir MD> Cosigner Signature (if applicable): CC: Dr. Samir Jordan MD ~ Signed [facility] Work Phone: 1(490) 530-870810-15-2023 Hospital Discharge instructions Additional Instructions For the next 2 nights, soaking your low back in bathtub with warm-hot soapy water would be a good idea, patting dry and placing a clean dressing afterwards with antibiotic ointment on it to the affected area. Change the dressing 2-3 times per day for the first couple days then once thereafter until no more drainage on it.[facility] Work Phone: [phone]) 987-592910-04-2023 Miscellaneous Notes* Telephone Encounter - Romulo Gilliam Ma - 01/29/2023 2:07 PM EDT Patient notified, handout mailed. * Telephone Encounter - Leah Marcus APRN.CNP - 01/29/2023 1:40 PM EDT Ultrasound showing fatty liver, otherwise normal. Leah Marcus APRN.CNP [facility] History of Present illness Narrative* Homero Escamilla MD - 01/28/2023 2:15 PM EDT . Respiratory [place] Note Patient name: Shawna Prajapati PCP: Samir Jordan MD CC: COPD HPI: Shawna Prajapati 57 year old male former 90 pack year smoker, quitting in 2020 with PMH significant for obesity, asthma COPD overlap, GOLD stage 3, GERD, HLD, HTN, MARGARITO on CPAP, CAD s/p stents, allergies requiring IT in past, COVID 06/2021, who presents for follow-up visit. Patient has obvious mental issues, delusional thinking. Current therapy with Breztri and as needed albuterol. States thatoverall he has been doing fairly well with his COPD. He remains tobacco free. He is tolerating Breztri without any side effects. No need for his rescue inhaler. Main symptom is dyspnea on exertion. Triggered by weather changes. No recent upper respiratory infection although he was seen at [facility] at the end of November with increased shortness of breath and leg swelling. BNP normal but patient states he was being treated for congestive heart failure. No current chest pain, wheezing, cough or sputum production. DATA: Labs: Component Ref Range & Units 8 mo ago Alpha 1 Antitrypsin 90 - 200 mg/dL 167 Imaging / Diagnostic Studies: DATE OF EXAM: Nov 06 2022 2:56PM [facility] 0562 - CT LUNG SCREEN WO IVCON / CLINICAL HISTORY: Lung cancer LDCT screening ? absence of signs or symptoms of lung cancer. Personal history of nicotine dependence. COMPARISON: No prior RESULT: Are nodules present? Yes, 1-5 nodules Nodule 1: This Solid nodule is located in the Right Upper Lobe on slice number 62 with an average diameter of 4.4 mm (5.0 mm x 3.8 mm). Nodule 2: This Solid nodule is located in the Left Lower Lobe on slice number 156 with an average diameter of 3.9 mm (4.6 mm x 3.2 mm). Nodule 3: This Solid nodule is located in the Left Upper Lobe on slice number 61 with an average diameter of 1.8 mm (2.0 mm x 1.5 mm). Other findings: Diffuse bronchial wall thickening consistent with chronic airway inflammatory changes. Mild biapical scarring, right side greater than left. Mild subsegmental atelectasis/scarring within the inferior lingula and medial segment of the right middle lobe. No thoracic lymphadenopathy. Thoracic aorta and central pulmonary arteries are normal in caliber. The heart is not enlarged. Multilevel degenerative disc and endplate changes with vacuum disc phenomenon and osteophyte formation present within the thoracic spine. No acute process in the imaged upperabdomen. Emphysema: Moderate (25-50%), Centrilobular and scattered paraseptal, Upper lobe Coronary Artery Calcifications: Circumflex stent present; Left Anterior Descending stent present; Right Coronary none IMPRESSION: LungRADS category: 2 LungRADS modifier: None I personally reviewed images and agree with the above assessment PAST MEDICAL HISTORY Diagnosis Date Asthma 1990 COPD (chronic obstructive pulmonary disease) ([facility]) 2021 Coronary artery disease COVID-19 07/05/2021 EIC (epidermal inclusion cyst) 11/26/2019 Fibromyalgia 10/28/2016 Folliculitis 11/26/2019 GERD (gastroesophageal reflux disease) 01/27/2019 Hyperlipidemia 07/17/2021 Hypertension 07/17/2021 Inguinal hernia Irregular heartbeat NSTEMI (non-ST elevation myocardial infarction) ([facility]) 05/03/2020 [place], [place] MARGARITO on CPAP 2012 with nocturnal O2. Pancreatitis, chronic ([facility]) 09/07/2019 Seborrheic dermatitis 11/26/2019 Shingles outbreak 09/12/2021 Spinal stenosis, lumbar region with neurogenic claudication 11/20/2015 ALLERGIES Allergen Reactions Cabbage Other: See Comments dysphagia Lettuce Other: See Comments dysphagia Onion Extract Vomiting Garlic Oil GI Upset atorvastatin (LIPITOR) 80 mg tablet Take 1 tablet by mouth once daily. lisinopril (ZESTRIL) 20 mg tablet Take 1 tablet by mouth once daily. famotidine (PEPCID) 20 mg tablet Take 1 tablet by mouth twice daily. rivaroxaban (XARELTO DVT-PE TREAT 30D START) 15 mg (42)- 20 mg (9) DsPk Take 1 tablet (15 mg) by mouth twice daily with food for 21 days. Then take 1 tablet (20 mg) by mouth once daily with food for 9 days. albuterol HFA (PROVENTIL HFA, VENTOLIN HFA) 90 mcg/actuation inhaler Inhale 2 Puffs as instructed every 4 hours as needed for wheezing/shortness of breath. BREZTRI AEROSPHERE 160-9-4.8 mcg/actuation HFA aerosol inhaler INHALE TWO (2) PUFFS TWICE DAILY INSTRUCTED albuterol (PROVENTIL) 2.5 mg /3 mL (0.083 %) nebulizer solution Use one vial every 4 hours as needed for wheezing/shortness of breath. Use over 5-15minutes. aspirin, enteric coated (ASPIRIN, ENTERIC COATED) 81 mg EC tablet Take 1 tablet by mouth once daily. metoprolol tartrate, short acting, (LOPRESSOR) 25 mg tablet Take 1 tablet by mouth twice daily. omeprazole (PRILOSEC) 20 mg capsule Take 1 capsule by mouth once daily. Social History Tobacco Use Smoking status: Former Packs/day: 3.00 Years: 30.00 Additional pack years: 0.00 Total pack years: 90.00 Types: Cigarettes Start date: 1981 Quit date: 05/02/2020 Years since quittin.7 Smokeless tobacco: Former Types: Snuff Quit date: 05/02/2020 Tobacco comments: Age 16-05/02/2019 Vaping Use Vaping Use: Former Substance Use Topics Alcohol use: Not Currently Drug use: Never FAMILY HISTORY Adopted: Yes Family history unknown: Yes PAST SURGICAL HISTORY Procedure Laterality Date CC CORONARY STENT 05/04/2020 [facility] to [facility], [facility] HERNIA REPAIR HX Right 1964 inguinal HERNIA REPAIR HX Left 1990 inguinal LAMINECTOMY,LUMBAR 11/08/2021 Dr. Cristóbal Maldonado [facility], Social history, family history and surgical history reviewed and updated in EMR REVIEW OF SYSTEMS: CONSTITUTIONAL: No fevers, chills, nightsweats, unintended weight loss HEENT: Denies nasal congestion/sinus symptoms, allergy problems. CARDIOVASCULAR: No chest pain, palpitations, orthopnea, PND. Edema PULM: See HPI GI: No dysphagia/odynophagia, problematic reflux NEURO: No new balance problems, peripheral weakness/paresthesias or numbness of concern. MUSC-SKEL: Back pain PSY: Delusional INTEGUMENTARY: No new skin changes or rashes PHYSICAL EXAMINATION: BP 120/68 Pulse 76 Resp 18 Wt 212 lb (96.2kg) SpO2 96% General Appearance: Age-appropriate male, NAD Skin: Skin color, texture, turgor normal, no suspicious rashes or lesions. Head: Normocephalic, no masses, lesions, tenderness or abnormalities. Eyes: Sclera, conjunctiva normal. Oropharynx: Upper plate, no oral lesions or thrush. Neck: No JVD, no masses, no adenopathy. Lungs: Not labored, normal to percussion, no wheezes or crackles. Heart: Regular rate and rhythm, no murmurs or gallops. Extremities: Mild edema, no clubbing. Assessment/Plan: 1. Severe COPD, GOLD 3 -He will continue on his current inhaled therapy of Breztri and as needed albuterol 2. Former cigarette smoker -Former smoker with sequelae of COPD -Continued abstinence 3. Lung nodules -Stable nodules -Follow-up CT yearly Homero Escamilla MD Respiratory [facility] documented in this encounterGenesis [facility]10-02-[facility]23 Miscellaneous Notes* Telephone Encounter - Obdulio Traore - 01/27/2023 11:54 AM EDT Patient cancelled procedure as he is currently homeless and needs to find somewhere to live before he can have this procedure done. Patient was given number to call gonzalo he is settled and able to rescheduled. documented in this encounterGenesis Hospital10-02-2023 Miscellaneous Notes* Telephone Encounter - Obdulio Traore - 01/27/2023 11:36 AM EDT Images from the original note were not included. Contacted patient for pre-op GI phone call via either phone and or [employer]. Patient understands prep instructions, sent either Mychart and/or Mail. Understands where to report on the day of procedure. All questions answered and or sent to providers office for clarification. Patient understands Siinehart arrival time could change and wait for their arrival time call from the facility the day before procedure.Patient understands must have a water tanker driver and or responsible alliance party present. Patient was givendirect phone number to call ) if patient has any further questions or given the option to respond to [employer] message If one was sent (please see below for Allclass[employer]art message). Please see the prep instructions below. The first set of instructions are over the counter medications that you may package pick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 Order can be placed): Home, Self Care 12/24/22 1540<Electronically signed by Leroy Keating DO>Leroy Keating DO CC: Dr. Alfred Baptiste MD; Dr. Cammy Alberto DO; Dr. Samir Jordan MD ~ Signed [facility] Work Phone: [phone] Miscellaneous Notes* Telephone Encounter - Rhea Fuentes RN - 12/24/2022 11:35 AM EDT Patient has been identified by name and date of : Yes, Rhea Fuentes RN Date 12/24/2022 Time: 11:36 am Pharmacy phones for refill(s): Requested Prescriptions Pending Prescriptions Disp Refills albuterol HFA (PROVENTIL HFA, VENTOLIN HFA) 90 mcg/actuation inhaler 18 g 5 Sig: Inhale 2 Puffs as instructed every 4 hours as needed for wheezing/shortness of breath. Prescription is scheduled for December 2023. Date of last office visit with pcp: 09/17/2022 Future appt: none Last 2 Encounter Wt Readings: Date: Wt: 10/22/2022 95.7 kg (211 lb) 10/14/2022 95.7 kg (211 lb) Previous labs/tests for medication: Blood Pressure: BUN (mg/dL) Date Value 05/18/2022 11 Sodium (mmol/L) Date Value 05/18/2022 144 Last 1 Encounter BP Readings: Date: BP: 10/22/2022 122/76 Liver Function: ALT (U/L) Date Value 05/18/2022 30 AST (U/L) Date Value 05/18/2022 27 Please advise. Thank you. Rhea Fuentes RN [facility] Progress note Author Alfred Baptiste [facility] December 22, 2022 10:18am Note Date/Time December 22, 2022 7: 43am [facility] Medical Records Department [address] [place] [address] Progress Note - Hospitalist 12/22/22 0743 MR#: [id number] Acct: [id number] Name: SHAWNA PRAJAPATI Rep #:[id number] : 1965 57 From: Alfred Baptiste MD PCP: Dr. Samir Jordan MD Status:A DM IN Location: [place] [address] Reason for Visit Reason for Visit: Diagnoses Hypokalemia (12/22/22) Delusional disorders (12/22/22) Other forms of dyspnea (12/22/22) Hypoxemia (12/22/22) Localized edema (12/22/22) Homelessness unspecified (12/22/22) Subjective Subjective Patient is a 57-year-old male admitted with shortness of breath with exertion aswell as bilateral lower extremity edema Objective Data Objective Data Vital Signs: Vital Signs Temp Pulse Resp BP Pulse Ox O2 Del Method O2 Flow Rate 98.0 F 68 18 107/70 94 Nasal Cannula 2 12/22/22 06:39 12/22/22 07:07 12/22/22 07:07 12/22/22 06:39 12/22/22 07:07 12/22/22 07:07 12/22/22 07:07 Oxygen Flow Rate (L/min) 2 Oxygen Delivery Method Nasal Cannula Weight: 94.8 kg Body Mass Index (BMI) 32.7 Intake & Output: Intake and Output for Last 24 Hours 12/20/22 12/21/22 12/22/22 23:59 23:59 23:59 Intake Total 220 / 220 Output Total 1700 / 1700 Balance -1480 / -1480 Lab / Micro Data 12/22/22 06:16 12/22/22 06:16 Labs: Laboratory Results - last 24 hr 12/21/22 22:01: WBC 8.4, RBC 4.42 L, Hgb 13.4, Hct 43.6, MCV 98.6 H, MCH 30.3, MCHC 30.7 L, RDW Std Deviation 47.2 H, RDW Coeff of Leticia 13.1, Plt Count 272, MPV9.6, Immature Gran % (Auto) 0.400, Neut % (Auto) 70.5 H, Lymph % (Auto) 13.9 L, [place] % (Auto) 11.7 H, Eos % (Auto) 2.5, Baso % (Auto) 1.0, Absolute Neuts (auto)5.9, Absolute Lymphs (auto) 1.17, Nucleated RBC % 0, Sodium 141, Potassium 3.4 L, Chloride 108 H, Carbon Dioxide 30.0, Anion Gap 3 L, BUN 11, Creatinine 1.08, Estim Creat Clear Calc 69.70, Est GFR (MDRD) Af Amer 90, Est GFR (MDRD) Non-Af 75, BUN/Creatinine Ratio 10.2, Glucose 102, Calcium 8.5, Total Bilirubin 0.60, Direct Bilirubin 0.16, AST 35, ALT 51, Alkaline Phosphatase 135 H, Troponin I High Sens 14, B-Natriuretic Peptide 40.6, Total Protein 6.4, Albumin 2.9 L, Globulin 3.5 12/21/22 23:16: D-Dimer Quant (PE/DVT) 1.66 H* 12/22/22 06:16: WBC 6.0, RBC 4.50 L, Hgb 14.2, Hct 44.5, MCV 98.9 H, MCH 31.6, MCHC 31.9 L, RDW Std Deviation 48.0 H, RDW Coeff of Leticia 13.2, Plt Count 268, MPV9.6, Immature Gran % (Auto) 0.200, Neut % (Auto) 58.7, Lymph % (Auto) 20.8, [place]% (Auto) 16.0 H, Eos % (Auto) 3.0, Baso % (Auto) 1.3 H, Absolute Neuts (auto) 3.5, Absolute Lymphs (auto) 1.25, Nucleated RBC % 0, Sodium 141, Potassium 3.5, Chloride 106, Carbon Dioxide 34.0 H, Anion Gap 1 L, BUN 10, Creatinine 1.22, Estim Creat Clear Calc 61.71, Est GFR (MDRD) Af Amer 78, Est GFR (MDRD) Non-Af 65, BUN/Creatinine Ratio 8.2 L, Glucose 106, Calcium 8.6, Phosphorus 3.1, Magnesium 2.0, TSH 1.38 Radiography Diagnostic Testing: Radiology Impression Chest X-Ray 12/21/22 22:10 IMPRESSION: COPD Electronically Signed: Leroy Briscoe MD at 22:34 EDT , Chest CTA 12/22/22 23:54 IMPRESSION: COPD and atherosclerotic disease with no pulmonary embolus identified. Electronically Signed: Leroy Briscoe MD at 1:55 EDT , Rhythm Strip Rhythm Strip: Sinus Rhythm Rate: 71 Ectopy: PAC(s) Physical Exam Narrative GENERAL: cooperative HEENT: Atraumatic; normocephalic EYES; Anicteric, Normal Conjunctiva NECK; supple, normal thyroid, RESPIRATORY: Diminished to auscultation CARDIOVASCULAR: Regular S1 S2, GI: soft, normoactive bowel sounds, : No Renal angle tenderness; EXTREMITIES: edema, no clubbing, MUSCULOSKELETAL: no muscle wasting NEURO: Awake; no lateralizing signs. SKIN: No Rash PSYCH; Flat affect Assessment & Plan Assessment/Plan (1) Exertional dyspnea: PLAN: Plan Patient is a 57-year-old male admitted with shortness of breath with exertion aswell as bilateral lower extremity edema 1. Acute congestive heart failure ? Unspecified. Admitted to monitored bed. Managed with diuresis, strict input and output, daily weight supplemental oxygen. Echo ordered for EF assessment 2. Coronary artery disease ? With previous stent placement 3. Hypokalemia -Corrected per protocol 4. Overlap syndrome with mild intermittent asthma/COPD ? Aerosol treatment as needed 5. Hypertension - Blood pressure controlled, home medications continued with dose adjustment as needed 6. Class I obesity with BMI of 32 ? Complicating care weight loss advised 7. Dyslipidemia -Patient is on statin therapy, continued at home dose 8. Obstructive sleep apnea ? Patient is apparently supposed to be on CPAP. Patient patient is however Homeless and has therefore not been compliant 9. Elevated D-dimer ? CTA of the chest was negative for PE patient was however started on full dose systemic anticoagulation and venous duplex ordered if negative will be discontinued and patient placed on prophylactic dose 10. DVT prophylaxis ? Patient is on full dose systemic anticoagulation Time spent in the patient's overall evaluation,decision-making process, review of diagnostic data, adjustment of management, discussion with other providers, nursing nursing and ancillary staff involved in patient's care documentation, 50 Minutes Charges/Coding Visit Charges Inpatient E&M: 18745 Subs Hosp L3 12/22/22 1018 <Electronically signed by Alfred Baptiste MD> Cosigner Signature (if applicable): CC: ~ Signed [facility] Work Phone: 1([phone]) 334-263908-27-2023 History and physical note Author Cammy Alberto [facility] December 22, 2022 2:34am Note Date/Time December 21, 2022 11 :20pm [facility] Medical Records Department [address] [place] [id number] H&P Exam - Hospitalist 12/21/22 2316 MR#: [id number] Acct: [id number] Name: SHAWNA PRAJAPATI Rep #:[id number] : 1965 57 From: Cammy Alberto DO PCP: Dr. Samir Jordan MD Status:A DM IN Location: [place] [id number] HPI - General General Date of Admission: 12/21/22 Date of Service: 12/21/22 Chief Complaint: Exertional SOB and LE Edema HPI Narrative SHAWNA PRAJAPATI, is a 57 M who presented to the emergency department at [facility] on 12/21/2022 complaining of exertional dyspnea and bilateral lower extremity swelling. He stated initially a few weeks ago he started havingswelling and the swelling would go down when his legs were elevated however now its been persistent. He is currently homeless and living out of his jeep and has been doing so for pretty much the entire month of November at this point. He is supposed to be on oxygen at 2 L [id number] at baseline and then wearinga CPAP nocturnally. He has not been able to do this at all since he is been homeless living out of his jeep. He does complain of some right-sided calf painwith ambulation however not much at rest. There is some tenderness with palpation however. 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 He reported that [place] and then adopted by his cousin and his bitch . He did reiterate that to nursing as well however did not report this to me this evening. Patient denies any chest pain. He is not shortof breath at rest. He does follow with Dr. Homero Escamilla at [facility] for pulmonarymedicine and I was able to review her most recent note. He has gold stage III COPD at baseline. He has history of remote tobacco abuse and has been an asthmatic his whole life. He reports he quit smoking when he had his heart attack. He had a recent stress test that was performed on 11/18/2022 that was unremarkable for inducible ischemia and his EF on that was 71%. On presentation his temperature is 96.6, heart rate 72, blood pressure was 139/94, respiratory rate was 16 oxygen saturation was 94% on room air at rest however with exertion on room air his oxygen saturations dropped to 84%. This was done on room air. During the time of my eval we discussed his lung disease further and he admitted that he is to be on 2 L [id number] but is not due to the above circumstances. CBC is unremarkable. Chemistry panel showed mild hypokalemia with a potassium of 3.4 but was otherwise unremarkable. Liver functions normal. Troponin was 14 and BNP was 40.6. EKG was normal sinus rhythm with no ST-T wave changes concerning for acute ischemia and normal intervals. D-dimer was elevated at 1.54. Chest x-ray was unremarkable other than findings consistent with COPD and CTA of his chest was done given an elevated D-dimer and showed COPD and atherosclerotic disease but no pulmonary embolus. [facility] Medical History (Updated 12/22/22 @ 02:[address] Cammy Alberto DO) Asthma CAD (coronary artery disease) History of COPD History of [place] (myocardial infarction) HTN (hypertension) Hyperlipemia Lumbar stenosis Myocardial infarct MARGARITO (obstructive sleep apnea) Home Medications albuterol sulfate 90 mcg/actuation aerosol inhaler (Ventolin HFA) 1 inh inhalation BID SOB 11/09/21 [History Last Taken 11/09/21] lisinopril 20 mg tablet 20 mg PO DAILY bp 11/09/21 [History Last Taken 11/09/21] mometasone-formoterol HFA 200 mcg-5 mcg/actuation aerosol inhaler (Dulera) 1 inhinhalation BID SOB 11/09/21 [History Last Taken 11/09/21] acetaminophen 300 mg-codeine 30 mg tablet 1 tab PO Q8H PRN Pain level 4-10 #6 tabs 11/13/21 [Rx Last Taken Unknown] acetaminophen 300 mg-codeine 30 mg tablet 1 tab PO Q8H pain 2 days #6 tabs 11/13/21 [Rx Last Taken 11/08/21] aspirin 81 mg tablet,delayed release 81 mg PO DAILY 04/12/22 [History Last Taken Unknown] atorvastatin 80 mg tablet 80 mg PO QHS 04/12/22 [History Last Taken Unknown] metoprolol tartrate 25 mg tablet 25 mg PO DAILY 04/12/22 [History Last Taken Unknown] acetaminophen 300 mg-codeine 30 mg tablet 1 tab PO Q6H PRN pain 3 days #10 tabs 09/04/22 [Rx Last Taken Unknown] Allergy/AdvReac Type Severity Reaction Status Date / Time cabbage Allergy can not Verified 12/21/22 21:35 swallow lettuce Allergy can not Verified 12/21/22 21:35 swallow onion Allergy Vomiting Verified 12/21/22 21:35 garlic AdvReac Mild Abd Verified 12/21/22 21:35 cramps/diarrhea Family History Father No problems noted. Family History no significant family his Surgical History H/O hernia repair Stented coronary artery Social History (Updated 12/22/22 @ 02:[address] Cammy Alberto DO) housing: homeless other: Patient is currently living out of his car and is supposed to be on oxygen Smoking Status: Former smoker alcohol intake: never substance use type: does not use ROS Constitutional Constitutional: Reports change in weight; Denies anorexia, chills, fatigue, fever(s), malaise, night sweats, weakness or other Eyes Eyes: Denies blurry vision, change in eye color, change in vision, discharge from eye(s), double vision, erythema, eye pain, loss of vision or other ENT HEENT: Denies abnormal hearing, dysphagia, ear pain, epistaxis, headache(s), hearing loss, nasal congestion, nasal discharge, post nasal drip, sinus pressure, sore throat or other Cardiovascular Cardiovascular: Reports dyspnea on exertion, edema and paroxysmal nocturnal dyspnea; Denies chest pain, claudication, lightheadedness, orthopnea, palpitations, rapid heart rate, syncope or other Respiratory/Chest Respiratory/Chest: Reports dyspnea and shortness of breath with exertion; Deniescough, excessive phlegm production, hemoptysis, productive cough, shortness of breath at rest, wheezing or other Gastrointestinal Gastrointestinal: Denies abdominal pain, coffee ground emesis, constipation, diarrhea, dyspepsia, hematemesis, hematochezia, loose stools, melena, nausea, vomiting or other Genitourinary Genitourinary: Denies burning urination, difficulty urinating, dysuria, hematuria, nocturia, urinary frequency, urinary hesitancy, urinary incontinence,urinary urgency or other Musculoskeletal Musculoskeletal: Denies arthralgias, back pain, joint pain, joint stiffness, joint swelling, myalgias, neck pain or other Neurologic Neurologic: Denies abnormal gait, abnormal speech, confusion, disequilibrium, dizziness, focal weakness, headache(s), numbness, paresthesias, seizure-like activity, seizures, syncope, tingling, tremor(s) or other Psychiatric Psychiatric: Denies anxiety, depression, homicidal ideation, suicidal ideation or other Endocrine Endocrinology: Denies change in body appearance, cold intolerance, excessive sweating, heat intolerance, polydipsia, polyuria or other Hematologic/Lymphatic Hematologic/Lymphatic: Denies anemia, easy bleeding, easy bruising, lymphadenopathy or other Allergic/Immunologic Allergic/Immunologic: Denies rhinitis, hives, eczemia, asthma or other Vital Signs Vital Signs Vital Signs: 12/21/22 21:30 12/21/22 21:33 12/21/22 21:47 Temperature 96.6 F L 96.6 F L Temperature Source Temporal Temporal Pulse Rate 72 72 Respiratory Rate 16 16 Respiratory Effort Short of Breath Blood Pressure 139/94 H 139/94 H Blood Pressure Mean 109 109 Pulse Ox 94 94 Oxygen Delivery Method Room Air Room Air 12/21/22 22:12 Temperature Temperature Source Pulse Rate Respiratory Rate Respiratory Effort Blood Pressure Blood Pressure Mean Pulse Ox Oxygen Delivery Method Room Air Weight Weight: 99.1 kg Body Mass Index (BMI) 34.2 Physical Exam Const alert, oriented x3, no apparent distress and well nourished Constitutional Narrative: Obese, middle-aged, white male, appears older than stated age, sitting up in bed, appears comfortable and nontoxic, currently on 2 L nasal cannula with saturations at 97%. General Appearance: cooperative HEENT normocephalic, head/scalp atraumatic and hearing grossly normal bilaterally HEENT Narrative: Dentures in place, Mallampati 3, no thrush Eyes PERRL, EOMs intact bilaterally and conjunctivae normal Eyes Narrative: No scleral icterus Neck no lymphadenopathy and supple Neck Narrative: Trachea midline, no thyroid enlargement Resp normal respiratory effort, no retractions, no use of accessory muscles and clearto auscultation bilaterally Resp Narrative: Diffusely diminished but clear improved aeration at the bases compared to the apices Auscultation: Negative for rales, rhonchi or wheezes Cardio regular rate, regular rhythm, S1 normal heart sound, S2 normal heart sound, no murmurs, no rub, no gallops and no clicks GI normal to inspection, nondistended, normoactive bowel sounds and soft to palpation GI Narrative: Umbilical hernia noted-tender at this area Extremity Extremity Narrative: 2+ doughy pitting edema up to just distal to the knees, no cyanosis or clubbing,positive Homans' sign on right Skin no wounds, skin turgor normal, no jaundice, no petechiae and no mottling Skin Narrative: Skin is pale without any significant wounds noted, seborrheic dermatitis noted on his face Neuro oriented x3, CN's II-XII intact bilaterally, moves all extremities and no focal motor deficits Speech: speech normal Psych cooperative and affect normal Psych Narrative: Patient with tangential thought processes at time and Appearance: unkempt and disheveled Attitude: calm and engaged Activity / Motor Behavior: appropriate eye contact Speech: normal speech Mood & Affect: euthymic mood Thought Process: illogical Thought Content: delusion(s) Delusional Thought Content Details: Positive for other Insight: limited Judgement: fair Results Lab / Micro Data Attestation: I reviewed the patient's lab results. 12/21/22 22:01 12/21/22 22:01 Labs: Laboratory Results - last 24 hr 12/21/22 22:01: WBC 8.4, RBC 4.42 L, Hgb 13.4, Hct 43.6, MCV 98.6 H, MCH 30.3, MCHC 30.7 L, RDW Std Deviation 47.2 H, RDW Coeff of Leticia 13.1, Plt Count 272, MPV9.6, Immature Gran % (Auto) 0.400, Neut % (Auto) 70.5 H, Lymph % (Auto) 13.9 L, [place] % (Auto) 11.7 H, Eos % (Auto) 2.5, Baso % (Auto) 1.0, Absolute Neuts (auto)5.9, Absolute Lymphs (auto) 1.17, Nucleated RBC % 0, Sodium 141, Potassium 3.4 L, Chloride 108 H, Carbon Dioxide 30.0, Anion Gap 3 L, BUN 11, Creatinine 1.08, Estim Creat Clear Calc 69.70, Est GFR (MDRD) Af Amer 90, Est GFR (MDRD) Non-Af 75, BUN/Creatinine Ratio 10.2, Glucose 102, Calcium 8.5, Total Bilirubin 0.60, Direct Bilirubin 0.16, AST 35, ALT 51, Alkaline Phosphatase 135 H, Troponin I High Sens 14, B-Natriuretic Peptide 40.6, Total Protein 6.4, Albumin 2.9 L, Globulin 3.5 Rhythm Strip Rhythm Strip: Sinus Rhythm Rate: 71 Ectopy: PAC(s) Radiology Impression Chest X-Ray 12/21/22 22:10 IMPRESSION: COPD Electronically Signed: Leroy Briscoe MD at 22:34 EDT , Assessment & Plan Assessment/Plan (1) Exertional dyspnea: (2) Hypokalemia: (3) Bilateral lower extremity edema: (4) Delusions: (5) Hypoxia: (6) Homelessness: PLAN: Plan Exertional dyspnea/hypoxia/bilateral lower extremity edema -Patient is supposed to be on 2 L nasal cannula [id number]-fjl-[id number] however he has not been doing this due to being homeless and not having supplies -He to is also supposed to be wearing CPAP at night and again has not been able to do this due to his homelessness -I highly suspect this is the probable cause for his shortness of breath with exertion as well as his edema in his lower extremities--> the chronic hypoxia over the last month is probably caused increasing pulmonary hypertension causingswelling and exertional dyspnea -We will consult social work/case management to assist with discharge planning and to assure patient can get his oxygen and have CPAP available -Continue supplemental oxygen at 2 L -We will check bilateral lower extremity Dopplers with negative CTA of chest, positive Homans' sign, and elevated D-dimer -We will place him on Eliquis 10 mg twice daily for now until we can rule outDVT -Check echocardiogram -Lasix 40 mg IV push twice daily -Fluid restriction to 1750 cc daily -Sodium restricted diet -Daily weights -Monitor electrolytes Hypokalemia -Potassium replacement 40 mill equivalents x1 dose -We will monitor given diuretics and check a.m. magnesium level Elevated D-dimer -CTA negative for PE -With swelling we will check Dopplers of lower extremities -Homans' sign is positive on right -We will fully anticoagulate until we can rule out DVT with Dopplers Delusions -Patient has told people many times that he was hatched from [place] and that he is not human and has multiple bits of different types of DNA. He also reports that he was adopted by his cousin and his bitch . -May need psychiatric evaluation while he is hospitalized as I suspect this may be contributing to his homelessness and overall social issues Gold stage III COPD/asthma/overlap syndrome -Continue home inhalers -Patient is oxygen dependent at baseline at 2 L however has not been compliant due to social circumstances as noted above -Continue oxygen at 2 L -As needed albuterol CAD/HTN/HPL -Previous PCI in [place] remotely -Patient had a stress test done on 11/18/2022 that was negative for any inducibleischemia and estimated EF at that time was 71% -Continue home aspirin -Continue home atorvastatin -Continue home metoprolol -Continue home lisinopril DVT prophylaxis -Full anticoagulation for now given elevated D-dimer and positive Homans' sign -Eliquis 10 mg p.o. twice daily -Dopplers are negative Friday transition to subcu Lovenox CODE STATUS Full code Charges/Coding Visit Charges Inpatient E&M: 12407 Init Hosp L3 12/22/22 0234 <Electronically signed by Cammy Alberto DO> Cosigner Signature (if applicable): CC: Dr. Cammy Alberto DO; Dr. Samir Jordan MD~ Signed [facility] Work Phone: [phone] History and physical note Author Cammy Alberto [facility] December 22, 2022 2:34am Note Date/Time December 21, 2022 11 :20pm [facility] Medical Records Department [address] [facility] [place] [address] H&P Exam - Hospitalist 12/21/22 2316 MR#: [id number] Acct: [id number] Name: SHAWNA PRAJAPATI Rep #:[id number] : 1965 57 From: Cammy Alberto DO PCP: Dr. Samir Jordan MD Status:A DM IN Location: [facility] [id number] HPI - General General Date of Admission: 12/21/22 Date of Service: 12/21/22 Chief Complaint: Exertional SOB and LE Edema HPI Narrative SHAWNA PRAJAPATI, is a 57 M who presented to the emergency department at [facility] on 12/21/2022 complaining of exertional dyspnea and bilateral lower extremity swelling. He stated initially a few weeks ago he started havingswelling and the swelling would go down when his legs were elevated however now its been persistent. He is currently homeless and living out of his jeep and has been doing so for pretty much the entire month of November at this point. He is supposed to be on oxygen at 2 L [id number] at baseline and then wearinga CPAP nocturnally. He has not been able to do this at all since he is been homeless living out of his jeep. He does complain of some right-sided calf painwith ambulation however not much at rest. There is some tenderness with palpation however. 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 He reported that he was hatched at area and then adopted by his cousin and his bitch . He did reiterate that to nursing as well however did not report this to me this evening. Patient denies any chest pain. He is not shortof breath at rest. He does follow with Dr. Homero Escamilla at [facility] for pulmonarymedicine and I was able to review her most recent note. He has gold stage III COPD at baseline. He has history of remote tobacco abuse and has been an asthmatic his whole life. He reports he quit smoking when he had his heart attack. He had a recent stress test that was performed on 11/18/2022 that was unremarkable for inducible ischemia and his EF on that was 71%. On presentation his temperature is 96.6, heart rate 72, blood pressure was 139/94, respiratory rate was 16 oxygen saturation was 94% on room air at rest however with exertion on room air his oxygen saturations dropped to 84%. This was done on room air. During the time of my eval we discussed his lung disease further and he admitted that he is to be on 2 L [id number] but is not due to the above circumstances. CBC is unremarkable. Chemistry panel showed mild hypokalemia with a potassium of 3.4 but was otherwise unremarkable. Liver functions normal. Troponin was 14 and BNP was 40.6. EKG was normal sinus rhythm with no ST-T wave changes concerning for acute ischemia and normal intervals. D-dimer was elevated at 1.54. Chest x-ray was unremarkable other than findings consistent with COPD and CTA of his chest was done given an elevated D-dimer and showed COPD and atherosclerotic disease but no pulmonary embolus. [facility] Medical History (Updated 12/22/22 @ 02:[address] Cammy Alberto, ) Asthma CAD (coronary artery disease) History of COPD History of [place] (myocardial infarction) HTN (hypertension) Hyperlipemia Lumbar stenosis Myocardial infarct MARGARITO (obstructive sleep apnea) Home Medications albuterol sulfate 90 mcg/actuation aerosol inhaler (Ventolin HFA) 1 inh inhalation BID SOB 11/09/21 [History Last Taken 11/09/21] lisinopril 20 mg tablet 20 mg PO DAILY bp 11/09/21 [History Last Taken 11/09/21] mometasone-formoterol HFA 200 mcg-5 mcg/actuation aerosol inhaler (Dulera) 1 inhinhalation BID SOB 11/09/21 [History Last Taken 11/09/21] acetaminophen 300 mg-codeine 30 mg tablet 1 tab PO Q8H PRN Pain level 4-10 #6 tabs 11/13/21 [Rx Last Taken Unknown] acetaminophen 300 mg-codeine 30 mg tablet 1 tab PO Q8H pain 2 days #6 tabs 11/13/21 [Rx Last Taken 11/08/21] aspirin 81 mg tablet,delayed release 81 mg PO DAILY 04/12/22 [History Last Taken Unknown] atorvastatin 80 mg tablet 80 mg PO QHS 04/12/22 [History Last Taken Unknown] metoprolol tartrate 25 mg tablet 25 mg PO DAILY 04/12/22 [History Last Taken Unknown] acetaminophen 300 mg-codeine 30 mg tablet 1 tab PO Q6H PRN pain 3 days #10 tabs 09/04/22 [Rx Last Taken Unknown] Allergy/AdvReac Type Severity Reaction Status Date / Time cabbage Allergy can not Verified 12/21/22 21:35 swallow lettuce Allergy can not Verified 12/21/22 21:35 swallow onion Allergy Vomiting Verified 12/21/22 21:35 garlic AdvReac Mild Abd Verified 12/21/22 21:35 cramps/diarrhea Family History Father No problems noted. Family History no significant family his Surgical History H/O hernia repair Stented coronary artery Social History (Updated 12/22/22 @ 02:[address] Cammy Alberto DO) housing: homeless other: Patient is currently living out of his car and is supposed to be on oxygen Smoking Status: Former smoker alcohol intake: never substance use type: does not use ROS Constitutional Constitutional: Reports change in weight; Denies anorexia, chills, fatigue, fever(s), malaise, night sweats, weakness or other Eyes Eyes: Denies blurry vision, change in eye color, change in vision, discharge from eye(s), double vision, erythema, eye pain, loss of vision or other ENT HEENT: Denies abnormal hearing, dysphagia, ear pain, epistaxis, headache(s), hearing loss, nasal congestion, nasal discharge, post nasal drip, sinus pressure, sore throat or other Cardiovascular Cardiovascular: Reports dyspnea on exertion, edema and paroxysmal nocturnal dyspnea; Denies chest pain, claudication, lightheadedness, orthopnea, palpitations, rapid heart rate, syncope or other Respiratory/Chest Respiratory/Chest: Reports dyspnea and shortness of breath with exertion; Deniescough, excessive phlegm production, hemoptysis, productive cough, shortness of breath at rest, wheezing or other Gastrointestinal Gastrointestinal: Denies abdominal pain, coffee ground emesis, constipation, diarrhea, dyspepsia, hematemesis, hematochezia, loose stools, melena, nausea, vomiting or other Genitourinary Genitourinary: Denies burning urination, difficulty urinating, dysuria, hematuria, nocturia, urinary frequency, urinary hesitancy, urinary incontinence,urinary urgency or other Musculoskeletal Musculoskeletal: Denies arthralgias, back pain, joint pain, joint stiffness, joint swelling, myalgias, neck pain or other Neurologic Neurologic: Denies abnormal gait, abnormal speech, confusion, disequilibrium, dizziness, focal weakness, headache(s), numbness, paresthesias, seizure-like activity, seizures, syncope, tingling, tremor(s) or other Psychiatric Psychiatric: Denies anxiety, depression, homicidal ideation, suicidal ideation or other Endocrine Endocrinology: Denies change in body appearance, cold intolerance, excessive sweating, heat intolerance, polydipsia, polyuria or other Hematologic/Lymphatic Hematologic/Lymphatic: Denies anemia, easy bleeding, easy bruising, lymphadenopathy or other Allergic/Immunologic Allergic/Immunologic: Denies rhinitis, hives, eczemia, asthma or other Vital Signs Vital Signs Vital Signs: 12/21/22 21:30 12/21/22 21:33 12/21/22 21:47 Temperature 96.6 F L 96.6 F L Temperature Source Temporal Temporal Pulse Rate 72 72 Respiratory Rate 16 16 Respiratory Effort Short of Breath Blood Pressure 139/94 H 139/94 H Blood Pressure Mean 109 109 Pulse Ox 94 94 Oxygen Delivery Method Room Air Room Air 12/21/22 22:12 Temperature Temperature Source Pulse Rate Respiratory Rate Respiratory Effort Blood Pressure Blood Pressure Mean Pulse Ox Oxygen Delivery Method Room Air Weight Weight: 99.1 kg Body Mass Index (BMI) 34.2 Physical Exam Const alert, oriented x3, no apparent distress and well nourished Constitutional Narrative: Obese, middle-aged, white male, appears older than stated age, sitting up in bed, appears comfortable and nontoxic, currently on 2 L nasal cannula with saturations at 97%. General Appearance: cooperative HEENT normocephalic, head/scalp atraumatic and hearing grossly normal bilaterally HEENT Narrative: Dentures in place, Mallampati 3, no thrush Eyes PERRL, EOMs intact bilaterally and conjunctivae normal Eyes Narrative: No scleral icterus Neck no lymphadenopathy and supple Neck Narrative: Trachea midline, no thyroid enlargement Resp normal respiratory effort, no retractions, no use of accessory muscles and clearto auscultation bilaterally Resp Narrative: Diffusely diminished but clear improved aeration at the bases compared to the apices Auscultation: Negative for rales, rhonchi or wheezes Cardio regular rate, regular rhythm, S1 normal heart sound, S2 normal heart sound, no murmurs, no rub, no gallops and no clicks GI normal to inspection, nondistended, normoactive bowel sounds and soft to palpation GI Narrative: Umbilical hernia noted-tender at this area Extremity Extremity Narrative: 2+ doughy pitting edema up to just distal to the knees, no cyanosis or clubbing,positive Homans' sign on right Skin no wounds, skin turgor normal, no jaundice, no petechiae and no mottling Skin Narrative: Skin is pale without any significant wounds noted, seborrheic dermatitis noted on his face Neuro oriented x3, CN's II-XII intact bilaterally, moves all extremities and no focal motor deficits Speech: speech normal Psych cooperative and affect normal Psych Narrative: Patient with tangential thought processes at time and Appearance: unkempt and disheveled Attitude: calm and engaged Activity / Motor Behavior: appropriate eye contact Speech: normal speech Mood & Affect: euthymic mood Thought Process: illogical Thought Content: delusion(s) Delusional Thought Content Details: Positive for other Insight: limited Judgement: fair Results Lab / Micro Data Attestation: I reviewed the patient's lab results. 12/21/22 22:01 12/21/22 22:01 Labs: Laboratory Results - last 24 hr 12/21/22 22:01: WBC 8.4, RBC 4.42 L, Hgb 13.4, Hct 43.6, MCV 98.6 H, MCH 30.3, MCHC 30.7 L, RDW Std Deviation 47.2 H, RDW Coeff of Leticia 13.1, Plt Count 272, MPV9.6, Immature Gran % (Auto) 0.400, Neut % (Auto) 70.5 H, Lymph % (Auto) 13.9 L, [place] % (Auto) 11.7 H, Eos % (Auto) 2.5, Baso % (Auto) 1.0, Absolute Neuts (auto)5.9, Absolute Lymphs (auto) 1.17, Nucleated RBC % 0, Sodium 141, Potassium 3.4 L, Chloride 108 H, Carbon Dioxide 30.0, Anion Gap 3 L, BUN 11, Creatinine 1.08, Estim Creat Clear Calc 69.70, Est GFR (MDRD) Af Amer 90, Est GFR (MDRD) Non-Af 75, BUN/Creatinine Ratio 10.2, Glucose 102, Calcium 8.5, Total Bilirubin 0.60, Direct Bilirubin 0.16, AST 35, ALT 51, Alkaline Phosphatase 135 H, Troponin I High Sens 14, B-Natriuretic Peptide 40.6, Total Protein 6.4, Albumin 2.9 L, Globulin 3.5 Rhythm Strip Rhythm Strip: Sinus Rhythm Rate: 71 Ectopy: PAC(s) Radiology Impression Chest X-Ray 12/21/22 22:10 IMPRESSION: COPD Electronically Signed: Leroy Briscoe MD at 22:34 EDT , Assessment & Plan Assessment/Plan (1) Exertional dyspnea: (2) Hypokalemia: (3) Bilateral lower extremity edema: (4) Delusions: (5) Hypoxia: (6) Homelessness: PLAN: Plan Exertional dyspnea/hypoxia/bilateral lower extremity edema -Patient is supposed to be on 2 L nasal cannula [id number] however he has not been doing this due to being homeless and not having supplies -He to is also supposed to be wearing CPAP at night and again has not been able to do this due to his homelessness -I highly suspect this is the probable cause for his shortness of breath with exertion as well as his edema in his lower extremities--> the chronic hypoxia over the last month is probably caused increasing pulmonary hypertension causingswelling and exertional dyspnea -We will consult social work/case management to assist with discharge planning and to assure patient can get his oxygen and have CPAP available -Continue supplemental oxygen at 2 L -We will check bilateral lower extremity Dopplers with negative CTA of chest, positive Homans' sign, and elevated D-dimer -We will place him on Eliquis 10 mg twice daily for now until we can rule outDVT -Check echocardiogram -Lasix 40 mg IV push twice daily -Fluid restriction to 1750 cc daily -Sodium restricted diet -Daily weights -Monitor electrolytes Hypokalemia -Potassium replacement 40 mill equivalents x1 dose -We will monitor given diuretics and check a.m. magnesium level Elevated D-dimer -CTA negative for PE -With swelling we will check Dopplers of lower extremities -Homans' sign is positive on right -We will fully anticoagulate until we can rule out DVT with Dopplers Delusions -Patient has told people many times that he was hat[place] 50 and that he is not human and has multiple bits of different types of DNA. He also reports that he was adopted by his cousin and his bitch . -May need psychiatric evaluation while he is hospitalized as I suspect this may be contributing to his homelessness and overall social issues Gold stage III COPD/asthma/overlap syndrome -Continue home inhalers -Patient is oxygen dependent at baseline at 2 L however has not been compliant due to social circumstances as noted above -Continue oxygen at 2 L -As needed albuterol CAD/HTN/HPL -Previous PCI in [place] remotely -Patient had a stress test done on 11/18/2022 that was negative for any inducibleischemia and estimated EF at that time was 71% -Continue home aspirin -Continue home atorvastatin -Continue home metoprolol -Continue home lisinopril DVT prophylaxis -Full anticoagulation for now given elevated D-dimer and positive Homans' sign -Eliquis 10 mg p.o. twice daily -Dopplers are negative Friday transition to subcu Lovenox CODE STATUS Full code Charges/Coding Visit Charges Inpatient E&M: 55271 Init Hosp L3 12/22/22 4109 <Electronically signed by Cammy Alberto DO> Cosigner Signature (if applicable): CC: Dr. Cammy Alberto DO; Dr. Samir Jordan MD~ Signed [facility] Work Phone: [phone] Discharge summary Author Chucho Raphael [facility] December 21, 2022 11:09pm Note Date/Time December 21, 2022 10 :52pm [facility] Medical Records Department [address] [place] [address] Emergency Department Summary 12/21/22 MR#: [id number] Acct: [id number] Name: SHAWNA PRAJAPATI Rep #:[id number] : 1965 57 From: Chucho Raphael MD PCP: Dr. Samir Jordan MD Status:R EG ER Location: ED HPI History of Present Illness Chief Complaint: Edema Detail of Chief Complaint: Bilateral lower leg swelling with shortness of breath. Informant: patient Onset/Context/Timing Onset: Weeks Context: gradual Timing: Intermittent Quality: Positive for Dyspnea on exertion and Orthopnea Current Severity: Moderate Maximum Severity: Moderate Worsened by: Exertion and Lying flat Relieved by: Rest Associated Symptoms Chest Pain: Positive for Intermittent Narrative Narrative: 57-year-old male history of an [place] with 2 stents in 2020. He is on aspirin only no other blood thinners. States he quit smoking at that time. States the last several weeks maybe even months he had bilateral lower extremity swelling that comes and goes. He has had intermittent chest pain. And he gets short of breath. Shortness of breath is worse with exertion. Walking steps or lying flat. No prior history of CHF. No history of DVT or PE. No history of liver disease or kidney disease. PE Risk Factors: Negative for Cancer, OCP + Smoking + > 35, Prior DVT or PE, Recent immobilization, Recent surgery or Recent travel Prior similar symptoms: Yes Recent Illness/Hospitalization: No PFSH PFS Medical History Asthma Declining functional status Encounter for laboratory testing for COVID-19 virus Lumbar stenosis Myocardial infarct MARGARITO (obstructive sleep apnea) Post-op pain Shingles Home Medications albuterol sulfate 90 mcg/actuation aerosol inhaler (Ventolin HFA) 1 inh inhalation BID SOB 11/09/21 [History Last Taken 11/09/21] lisinopril 20 mg tablet 20 mg PO DAILY bp 11/09/21 [History Last Taken 11/09/21] mometasone-formoterol HFA 200 mcg-5 mcg/actuation aerosol inhaler (Dulera) 1 inhinhalation BID SOB 11/09/21 [History Last Taken 11/09/21] acetaminophen 300 mg-codeine 30 mg tablet 1 tab PO Q8H PRN Pain level 4-10 #6 tabs 11/13/21 [Rx Last Taken Unknown] acetaminophen 300 mg-codeine 30 mg tablet 1 tab PO Q8H pain 2 days #6 tabs 11/13/21 [Rx Last Taken 11/08/21] aspirin 81 mg tablet,delayed release 81 mg PO DAILY 04/12/22 [History Last Taken Unknown] atorvastatin 80 mg tablet 80 mg PO QHS 04/12/22 [History Last Taken Unknown] metoprolol tartrate 25 mg tablet 25 mg PO DAILY 04/12/22 [History Last Taken Unknown] acetaminophen 300 mg-codeine 30 mg tablet 1 tab PO Q6H PRN pain 3 days #10 tabs 09/04/22 [Rx Last Taken Unknown] Allergy/AdvReac Type Severity Reaction Status Date / Time cabbage Allergy can not Verified 12/21/22 21:35 swallow lettuce Allergy can not Verified 12/21/22 21:35 swallow onion Allergy Vomiting Verified 12/21/22 21:35 garlic AdvReac Mild Abd Verified 12/21/22 21:35 cramps/diarrhea Family History Father No problems noted. Family History no significant family his Surgical History H/O hernia repair Stented coronary artery Social History housing: homeless Smoking Status: Former smoker ROS ROS ED ROS Narrative Shortness of breath. Chest pain. Bilateral leg swelling. Review of Systems ROS Unobtainable: Denies due to encephalopathy Constitutional Constitutional ED: Denies chills or fever(s) Eyes Eyes: Denies blurry vision ENT ENT ED: Denies ear pain Cardiovascular Cardiovascular: Reports chest pain and orthopnea; Denies palpitations or racing heartbeat Respiratory/Chest Respiratory/Chest: Reports dyspnea, dyspnea on exertion and orthopnea; Denies cough Gastrointestinal Gastrointestinal: Denies abdominal pain, constipation, diarrhea, melena, nausea or vomiting Genitourinary Genitourinary ED: Denies dysuria or hematuria Musculoskeletal Musculoskeletal: Denies arthralgias Integumentary Denies abscess Neurologic Neurologic: Denies headache(s) Psychiatric Psychiatric: Denies anxiety Endocrine Endocrinology: Denies cold intolerance Hematologic/Lymphatic Hematologic/Lymphatic: Denies easy bleeding, easy bruising or lymphadenopathy EXAM Physical Exam Narrative Exam Narrative: Well-appearing 49-year-old male sitting upright in bed. Vital signs are stable. He is afebrile. He does not look septic or toxic. He is in no distress. Pulse ox 94% on room air no signs hypoxia. H EENT exam unremarkable. Posteriorpharynx normal. Neck nontender. No JVD. No lymphadenopathy. Lungs clear to auscultation bilaterally. Heart regular rhythm rate about 70 no murmur. Abdomen soft nontender normal bowel sounds no peritoneal signs. Moving all 4 extremities. 1+ pitting edema both lower extremities. Calves are nontender. Neurologically is awake and alert with no focal motor deficits. Const Vital Signs: 12/21/22 21:30 12/21/22 21:33 12/21/22 21:47 Temperature 96.6 F L 96.6 F L Temperature Source Temporal Temporal Pulse Rate 72 72 Respiratory Rate 16 16 Respiratory Effort Short of Breath Blood Pressure 139/94 H 139/94 H Blood Pressure Mean 109 109 Pulse Ox 94 94 Oxygen Delivery Method Room Air Room Air 12/21/22 22:12 Temperature Temperature Source Pulse Rate Respiratory Rate Respiratory Effort Blood Pressure Blood Pressure Mean Pulse Ox Oxygen Delivery Method Room Air Positive well nourished and well developed; Negative for cachectic, contracturesor unkempt General Appearance ED: well developed and NAD; Negative for unkempt, cachectic, contractures or pallor Nutritional Appearance: Negative for cachectic HEENT Reports moist mucous membranes; Denies dry mucous membranes atraumatic; Negative for trauma or tenderness Mouth ED: No dry mucous membranes Mouth: No dry mucous membranes Eyes PERRL and EOMs intact bilaterally General Eye ED: Negative for pale conjunctiva or scleral icterus Neck no lymphadenopathy, supple, no meningeal signs and no JVD General: Negative for tenderness Lymph Lymphatic: Negative for other Chest Wall Chest: Negative for other Resp normal respiratory effort and clear to auscultation bilaterally Effort and Inspection: Negative for pain with movement Auscultation: Negative for rales, rhonchi or wheezes Cardio regular rate, regular rhythm, S1 normal heart sound, S2 normal heart sound and no murmurs Rate: Negative for bradycardia or tachycardic Rhythm: Negative for abnormal rhythm GI non-tender, non-distended and no masses Inspection: Negative for other Auscultation: normoactive bowel sounds Palpation: soft; Negative for tender or guarding Bladder / Kidney Exam: No other Back/Spine no CVA tenderness and normal to inspection General Back: Negative for CVA tenderness Extremity Negative for normal to inspection Extremity Narrative: Bilateral lower extremity 1+ pitting edema. General Extremety ED: Yes edema; Negative for tenderness General Extremity: edema Neuro oriented x3 and CN's II-XII intact bilaterally Sensorium / Orientation: alert, oriented to person, oriented to place and oriented to time; Negative for orientation impaired, confused, lethargic or stuporous Speech: speech normal Motor Exam: strength 5/5 throughout Psych mental status grossly normal Appearance: Negative for unkempt Attitude: No agitated Mood & Affect: Negative for depressed, anxious or tearful Thought Process: normal thought process Skin no wounds and skin turgor normal General Skin Exam: Negative for jaundice or pallor Lesions: no lesions Rashes: no rashes Trauma: Negative for abrasion or laceration MDM MDM MDM Narrative Medical decision making narrative: 57-year-old male [place] 2 years ago with 2 stents. Now developing signs and symptoms of congestive heart failure with bilateral pedal edema, exertional dyspnea and orthopnea. Undergo cardiac work-up. Repeat exam patient is resting comfortably at 11:06 PM. He is sitting upright in bed. He and I went over his test results. He is unsure if he is ever had anechocardiogram. He has never had one here. Told me that he parked about 50 yards from the front door of the emergency department. Stated he had to stop 3 times prior to walking in because he gets so short of breath. I already spoke to the hospitalist he will be admitted for suspected CHF. She did want me to obtain a D-dimer prior to admission. If that is positive we will order a CTA. Be checked out the overnight physician. History & Record Review Discussion w/independent historian: Patient Additional record(s) reviewed:: Prior inpatient record, Prior outpatient record,Prior ED visit and Prior labs Lab Data Attestation: I reviewed the patient's lab results. Lab results narrative: CBC unremarkable white count 8.4. H&H of 13 and 43. Platelets 272. BMP shows a potassium of 3.4. A gap of 3. Normal BUN of 11 and creatinine of 1. Troponin is normal at 14. BNP is 40. Labs: Laboratory Results - last 24 hr 12/21/22 22:01 WBC 8.4 RBC 4.42 L Hgb 13.4 Hct 43.6 MCV 98.6 H MCH 30.3 MCHC 30.7 L RDW Std Deviation 47.2 H RDW Coeff of Leticia 13.1 Plt Count 272 MPV 9.6 Immature Gran % (Auto) 0.400 Neut % (Auto) 70.5 H Lymph % (Auto) 13.9 L [place] % (Auto) 11.7 H Eos % (Auto) 2.5 Baso % (Auto) 1.0 Absolute Neuts (auto) 5.9 Absolute Lymphs (auto) 1.17 Nucleated RBC % 0 Sodium 141 Potassium 3.4 L Chloride 108 H Carbon Dioxide 30.0 Anion Gap 3 L BUN 11 Creatinine 1.08 Estim Creat Clear Calc 69.70 Est GFR (MDRD) Af Amer 90 Est GFR (MDRD) Non-Af 75 BUN/Creatinine Ratio 10.2 Glucose 102 Calcium 8.5 Troponin I High Sens 14 B-Natriuretic Peptide 40.6 Radiography Chest X-Ray - ED: 1 View, Read by ED Physician, Normal, Heart, Lungs, Mediastinum, Bony Structures and No Acute Disease Diagnostic Testing: Clinical Impression(s) from Imaging Studies Chest X-Ray 12/21/22 22:10 IMPRESSION: COPD Electronically Signed: Leroy Briscoe MD at 22:34 EDT , Chest x-ray, portable, single view interpreted both by myself and the radiologist shows chronic changes no acute process. No cardiomegaly. No CHF orpleural effusions. Rhythm Strip Rhythm Strip: Sinus Rhythm Rate: 71 Ectopy: PAC(s) EKG Initial EKG: Attestation: I personally reviewed and interpreted this EKG as follows: Comments: Normal sinus rhythm rate of 71. No acute signs of [place] or ischemia. Incomplete right bundle branch block. Occasional PACs. Discharge Plan Triage Chief Complaint: Edema ED Provider: Chucho Raphael Dx/Rx/DC Orders Clinical Impression: History of [place] (myocardial infarction), Bilateral lower extremity edema, Historyof COPD, Exertional dyspnea, History of coronary artery stent placement, CHF (congestive heart failure) Prescriptions: No Action lisinopril 20 mg tablet 20 mg PO DAILY albuterol sulfate [Ventolin HFA] 90 mcg/actuation HFA aerosol inhaler 1 inh INHALATION BID Dulera 200-5 mcg/actuation HFA aerosol inhaler 1 inh INHALATION BID acetaminophen-codeine 300-30 mg Tablet 1 tab PO Q8H PRN (Reason: Pain level 4-10) Qty: 6 0RF acetaminophen-codeine 300-30 mg tablet 1 tab PO Q8H 2 Days Qty: 6 0RF Patient Comments: take 1 tablet by mouth every 8 hours if needed for pain for 7 days atorvastatin 80 mg tablet 80 mg PO QHS Patient Comments: TAKE 1 TABLET BY MOUTH AT BEDTIME aspirin 81 mg tablet,delayed release (DR/EC) 81 mg PO DAILY Patient Comments: TAKE 1 TABLET BY MOUTH DAILY metoprolol tartrate 25 mg tablet 25 mg PO DAILY Patient Comments: TAKE 1 TABLET BY MOUTH TWICE DAILY acetaminophen-codeine 300-30 mg tablet 1 tab PO Q6H PRN (Reason: pain) 3 Days Qty: 10 0RF Primary Care Provider: Samir Jordan Referrals: Samir Jordan MD [Primary Care Provider] - Disposition Disposition: Acute Care Hospital [facility] What to do if you have Problems For any increased pain, shortness of breath, bleeding, nausea or vomiting, chestpain, or any unexpected problems, contact your Primary Care Provider. Call [facility] ([phone]) or report to the closest Emergency Room. Call 911 if necessary. 12/21/222308 <Electronically signed by Chucho Raphael MD> Cosigner Signature (if applicable): CC: Dr. Samir Jordan MD ~ Signed [facility] Work Phone: [phone] Discharge summary Author Ki Vazquez [facility] November 30, 2022 12:01pm Note Date/Time November 30, 2022 9:0 3am [facility] Medical Records Department [address] [place] [address] Emergency Department Summary 11/30/22 MR#: [id number] Acct: [id number] Name: SHAWNA PRAJAPATI Rep #:[id number] : 1965 57 From: Ki Vazquez DO PCP: Dr. Samir Jordan MD Status:R EG ER Location: ED HPI History of Present Illness Chief Complaint: Cough Narrative Narrative: 57-year-old male presenting with blood that he coughed up. He brought this in acup. There is 1 small clot and some sputum. Patient states he coughed up this morning. Patient states yesterday he was packing up to move because he is beingevicted from his home and all of the work which he was doing caused him to have some chest discomfort. He states he is not really supposed to work that hard because he has a history of cardiac disease. When I asked the patient if he hadany lung issues he states that he has had them since he was hatched. He states that he was not born, however [place] and then he was adopted by his cousin and his bitch . 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 He does state that he is short of breath with exertion most of the time. He did a breathing treatment before coming in today. States this did not really help. He has not had any history of blood clots, recent travel, recent surgery, recent bleed being bedridden immobilized, history of exogenous hormones. He does not have any chest pain today. He denies fever or chills. He denies nausea or vomiting. He states theonly blood thinner is on his aspirin. [facility] Medical History Asthma Declining functional status Encounter for laboratory testing for COVID-19 virus Lumbar stenosis Myocardial infarct MARGARITO (obstructive sleep apnea) Post-op pain Shingles Home Medications albuterol sulfate 90 mcg/actuation aerosol inhaler (Ventolin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 wheezing/shortness of breath. Use over 5-15minutes. metoprolol tartrate, short acting, (LOPRESSOR) 25 mg tablet Take 1 tablet by mouth twice daily. No current facility-administered medications for this visit. ALLERGIES Allergen Reactions Cabbage Other: See Comments dysphagia Lettuce Other: See Comments dysphagia Onion Extract Vomiting Garlic Oil GI Upset Cardiac Testing Heart catheterization done in 04/2020: Operative findings: Completed the left heart cath using right radial approach for this nice 54-year-old gentleman who was admitted with acute coronary syndrome. He was found to have a critical stenosis of his proximal LAD at the bifurcation with a diagonal as well as high-grade stenosis involving the proximal circumflex which was a large dominant system. RCA was small nonsignificant system. He underwent complex but successful angioplasty and stenting of a proximal LAD with diagonal bifurcation.Both LAD and diagonal were wired and ballooned using 2.5 mm balloon. Subsequently 3.0 x 15 mm stentwas placed in the proximal LAD and postdilated using a 3.5 mm NC balloon. IVUS was done after the stent which showed an opportunity for better expansion therefore we went with a 3.5 mm NC balloon. Weinitially flow I ordered circumflex lesion and IFR came back significantly abnormal at 0.67 subsequently the lesion was stented using 3.0 x 12 mm Xience drug-eluting stent postdilated using a 3.5 mm N C balloon at high atmospheric pressure. Noted on the final showed that there was a new lesion at the ostium of the diagonal branch subsequently we attempted wiring the lesion and a during that we noted the resolution of what appeared to be a plaque shift. Patient initially reported chest pain but subsequently pain was resolved. His EKG continue to be normal. PIEDAD flow was 3 in both LAD and diagonal. Transthoracic echocardiogram done in 05/18: Summary 1. Left ventricular systolic function is low normal, with ejection fraction estimated at 50 +/- 5%. 2. Right ventricular systolic function is normal. 3. There is no pulmonary hypertension, estimated right ventricle systolic pressure is 25 mmHg. History/Risk Factors Patient has a history of tobacco use-previous. Procedure(s): Complete two-dimensional, color flow and Doppler transthoracic echocardiogram is performed. Left Ventricle Left ventricular chamber dimension is normal. Left ventricular segmental wall motion is normal. Left ventricular systolic function is low normal, with ejection fraction estimated at 50 +/- 5%. Indeterminate diastolic function. Right Ventricle Right ventricular chamber dimension is normal. Right ventricular systolic function is normal. Left Atria Left atrial chamber dimension is normal. Right Atria Right atrial chamber dimension is normal. Aortic Valve The aortic valve is trileaflet. There is no aortic valve regurgitation. Pulmonic Valve There is no pulmonic valve stenosis. There is trace pulmonic regurgitation. Mitral Valve The mitral valve has normal leaflets. There is no mitral valve stenosis. There is trace mitral valve regurgitation. Tricuspid Valve The tricuspid valve leaflets are normal. There is no significant tricuspid valve stenosis. There is trace tricuspid valve regurgitation. There is no pulmonary hypertension, estimated right ventricle systolic pressure is 25 mmHg. Pericardium/Pleural The pericardium appears normal. There is no pericardial effusion. Inferior Vena Cava Normal inferior vena cava with >50% collapse upon inspiration consistent with normal right atrial pressure. Aorta The aortic measurements are indexed to age and body surface area. The aortic root is normal measuring 2.90 cm with an index of 1.44 cm/m2. The proximal ascending aorta is normal measuring 2.8 cm with an index of 1.39 cm/m2. Review of Systems: GENERAL: No weight loss, malaise or fevers. HEENT: Negative for frequent or significant headaches NECK: Negative for goiter, pain or significant neck swelling RESPIRATORY: See HPI CARDIOVASCULAR: See HPI GI: No nausea, vomiting, or diarrhea MUSCULOSKELETAL: Negative for joint pain or swelling, he continues to have back pain. SKIN: Negative for lesions, rash, and itching. ENDOCRINE: Negative for cold or heat intolerance, polyuria or polydipsia. NEURO: No history of headaches, syncope, paralysis, seizures or tremors Physical Examination:: BP 123/74 Pulse 51 Resp 18 Ht 5' 7 (1.70m) Wt 209 lb (94.8kg) SpO2 96[room air]% BMI 32.73 kg/(m^2). General Appearance: Well appearing, alert, in no acute distress, well-hydrated, well nourished.. Skin: Skin color, texture, turgor normal, no suspicious rashes or lesions. Head: Normocephalic, no masses, lesions, tenderness or abnormalities. Eyes: Anicteric sclera. Pupils are equally round. Extraocular movements are intact. Neck: Supple, no adenopathy; thyroid symmetric, normal size, no bruits. Lungs: Lungs clear to auscultation. No wheezing, rhonchi, rales.. Heart: regular rate and rhythm, no murmur, gallop or rub, normal, S1, S2, physiologic split Peripheral Pulses: Normal. ASSESSMENT/PLAN: 1. 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, unspecified vessel or lesion type - ICD9: 414.01, ICD10: I25.10 (primary diagnosis) His coronary artery disease appears clinically stable at this time as he has no complaints of angina or any anginal equivalents. Having said this he is very minimally active due to his severe shortness of breath from his COPD. Continue aspirin, beta-abran, DIMITRIS inhibitor, statin. Would recommend discontinuing Plavix at this time as he has fulfilled over 2 years of dual antiplatelet therapy. - ECG B/O W INTERP (MED OFFICE) 2. Encounter for other preprocedural examination - ICD9: V72.83, ICD10: Z01.818 He had stenting to his proximal left anterior descending artery and his proximal dominant left circumflex coronary artery. Since then he has had no complaints of chest pain or pressure, but he is notsignificantly active as he has severe shortness of breath on minimal exertion. Recommend further risk stratification with a nuclear medicine stress test. Those results are readily available, I will report back to his surgeon for the next step. - NM CARDIAC PERF STRESS/PHARM 3. Essential hypertension - ICD9: 401.9, ICD10: I10 - good control - Recommended regular aerobic exercise. - Recommend home blood pressure monitoring, to bring results in on next visit - Goal of BP <130/80 4. Mixed hyperlipidemia - ICD9: 272.2, ICD10: E78.2 - good control - Continue current medication. Ming Ballesteros MD Construction Assistant of Internal Medicine [facility] Section of Interventional Cardiology Smoking Pipe Liner of Structural Heart Disease [address], [address] [place] [address] Facsimile: [phone] Email: [email or web address] documented in this encounterGen[facility]04-21-[facility]23 Nurse Note* Chely Ramos MA - 08/16/2022 9:56 AM EDT Patient denies any cardiac issues or symptoms. documented in this encounterGenesis Hospital04-20-2023 Instructions* Patient Instructions* Samir Jordan MD - 08/15/2022 4:57 PM EDT Health Information For Patients and the Community How to Prepare for Your Colonoscopy Using Golytely, Nulytely, Trilyte or Colyte Preparations IMPORTANT - Please Read These Instructions at Least 2 Weeks Before Your Colonoscopy Abrams Instructions: ?Your bowel must be empty so that your doctor can clearly view your colon. Follow all of the instructions in this handout EXACTLY as they are written. If you do NOT follow the directions for when to start drinking the bowel preparation (see next page), your colonoscopy WILL be cancelled. ?Do NOT eat any solid food the ENTIRE day before your colonoscopy. ?Buy your bowel preparation at least 5 days before your colonoscopy. ?Do NOT mix the solution until the day before your colonoscopy. Designated Care Analyst on the Day of Your Exam A responsible family member or friend MUST come with you to your colonoscopy and REMAIN in the endoscopy area until you are discharged! You are NOT ALLOWED to drive, take a taxi or bus, or leave the Endoscopy Center ALONE. If you do not have a responsible water tanker driver (family member or friend) with you to take you home, your exam cannot be done with sedation and will be cancelled. Medications Some of the medicines you take may need to be stopped or adjusted before your colonoscopy. You MUST call the doctor who ordered any of the following medicines at least 2 weeks before your colonoscopy. ?Blood thinners -- such as Coumadin (warfarin), Plavix (clopidogrel), Ticlid (ticlopidine hydrochloride), Agrylin (anagrelide), Xarelto (Rivaroxaban), Pradaxa (Dabigatran), Eliquis (Apixaban), and Effient (Prasugrel). ?Insulin or diabetes pills. Please call the doctor that monitors your glucose levels. Your insulin dosage may need to be adjusted due to the diet restrictions required with this bowel preparation. (Please bring your diabetes medicines with you on the day of your procedure.) If you take aspirin, take it and ALL other medications prescribed by your doctor. On the day of your colonoscopy, take your medications with a sip of water. Revised 05/2016 1 Five (5) Days Before Your Colonoscopy ?Do NOT take medicines that stop diarrhea -- such as Imodium , Kaopectate , or Pepto Bismol . ?Do NOT take fiber supplements -- such as Metamucil , Citrucel , or Perdiem . ?Do NOT take products that contain iron -- such as multi-vitamins -- (the label lists what is in the products). ?Do NOT take vitamin E. Buy the prescription bowel preparation solution at your local pharmacy or drugstore pharmacy. Three (3) Days Before Your Colonoscopy Do NOT eat high-fiber foods -- such as popcorn, beans, seeds (flax, sunflower, quinoa), multigrain bread, nuts, salad/vegetables, or fresh and dried fruit. One (1) Day Before Your Colonoscopy Only drink clear liquids the ENTIRE DAY before your colonoscopy. Do NOT eat any solid foods. Drink at least 8 ounces of clear liquids every hour after waking up. The clear liquids you can drink include: ?water, apple, or white grape juice; broth; coffee or tea (without milk or creamer); clear carbonated beverages such as rico genny or lemon-[place] soda; Gatorade or other sports drinks (not red); Berhane-Aid or other flavored drinks (not red). You may eat plain jello or other gelatins (not red) or popsicles (not red). Do NOT drink alcohol on the day before or the day of the procedure. 2 Revised 05/2016 When to Mix and Drink Your Bowel Prep Follow the instructions on the label. After mixing, place the solution in the refrigerator for a couple of hours before drinking. You may add the flavor packet that came with the bowel preparation. DO NOT add ice, sugar or any flavorings to the solution. Evening Before Your Colonoscopy ?Start drinking the bowel preparation at 6 PM the evening before your colonoscopy. Drink an 8-oz glass of bowel preparation every 10 minutes. You must finish drinking the solution by 9 PM the night before your scheduled procedure. ?You may continue to drink clear liquids only until midnight. Do NOT eat or drink ANYTHING after midnight the night before your procedure or your procedure may be cancelled. This is for your safety and will reduce the risk of having any food or liquid in your stomach move into your lungs (aspiration) during a procedure. If you take aspirin, take it and ALL other prescribed medicines with a sip of water on the day of your colonoscopy. Contact Information: If you are unable to keep your appointment or have any questions about the instructions, please call the facility where the procedure is being performed. Call between the hours of 8:00 AM and 5:00 PM. If you are calling after 5:00 PM, please call Nurse confectionery laboratory manager at [phone]. [facility] [address] [place] [address] [id number] Index # [id number] Revised 05/2016 3 Colonoscopy Procedure Overview Please Read Prior to the Procedure What is a Colonoscopy A colonoscopy is an outpatient procedure in which the inside of the large intestine (colon and rectum) is examined. A colonoscopy is commonly used to evaluate gastrointestinal symptoms, such as rectal and intestinal bleeding, abdominal pain, or changes in bowel habits. Colonoscopies are also performed in individuals without symptoms to check for colorectal polyps or cancer. A screening colonoscopy is recommended for anyone 50 years of age and older, and for anyone with parents, siblings or children with a history of colorectal cancer or polyps. What Happens Before a Colonoscopy To have a successful colonoscopy, your bowel must be empty so that your physician can clearly view the colon. To do this, it is very important to read and follow all of the instructions given to you at least 2 weeks BEFORE your exam. If your bowel is not empty, your colonoscopy will not be successful and may have to be repeated. If you feel nauseated or vomit while taking the bowel preparation, wait 30 minutes before drinking more fluid and start with small sips of solution. Some activity (such as walking) or a few soda crackers may help decrease the nausea you are feeling. If the nausea persists, please contact nurse manager marketing communications at [phone]. You may experience skin irritation around the anus due to the passage of liquid stools. To prevent and treat skin irritation, you should: ?Apply Vaseline or Desitin ointment to the skin around the anus before drinking the bowel preparation medications. These products can be purchased at any drugstore. ?Wipe the skin after each bowel movement with disposable wet wipes instead of toilet paper. These are found in the toilet paper area of the store. ?Sit in a bathtub filled with warm water for 10 to 15 minutes after you finish passing a stool; after soaking, blot the skin dry with a soft cloth, apply Vaseline or Desitin ointment to the anal area, and place a cotton ball just outside your anus to absorb leaking fluid. What Happens During a Colonoscopy During a colonoscopy, an experienced physician uses a colonoscope (a long, flexible instrument about 1/2 inch in diameter) to view the lining of the colon. The colonoscope is inserted into the rectumand advanced through the large intestine. If necessary during a colonoscopy, small amounts of tissue can be removed for analysis (a biopsy) and polyps can be identified and entirely removed. In many cases, a colonoscopy allows accurate diagnosis and treatment of colorectal problems without the needfor a major operation. Revised 05/2016 5 ?You are asked to wear a hospital gown and an IV will be started. ?You are given a pain reliever and a sedative intravenously (in your vein). You will feel relaxed and somewhat drowsy. ?You will lie on your left side, with your knees drawn up towards your chest. ?A small amount of air is used to expand the colon so the physician can see the colon foster. ?You may feel mild cramping during the procedure. Cramping can be reduced by taking slow, deep breaths. ?The colonoscope is slowly withdrawn while the lining of your bowel is carefully examined. ?The procedure lasts from 30 minutes to 1 hour. What Happens After a Colonoscopy ?You will stay in a recovery room for observation until you are ready for discharge. ?You may feel some cramping or a sensation of having gas, but this quickly passes. ?If sedation has been given, a responsible family member or friend must drive you home. ?Avoid alcohol, driving, and operating machinery for 24 hours following the procedure. ?Unless otherwise instructed, you may immediately return to your normal diet. We recommend you waituntil the day after your procedure to resume normal activities. ?If polyps were removed or a biopsy was taken, the physician performing your colonoscopy will tell you when it is safe to resume taking your blood thinners. ?If a biopsy was taken or a polyp was removed, you may notice a little amount of rectal bleeding for 1 to 2 days after the procedure. If you have a large amount of rectal bleeding, high or persistentfevers, or severe abdominal pain within the next 2 weeks, please go to your local emergency room and call the physician who performed your exam. 6 Revised 05/2016 Copyright [id number] [facility]. All rights reserved. Revised 05/2016 documented in this encounterGenesis Hospital04-20-2023 History of Present illness Narrative* Samir Jordan MD - 08/15/2022 4:34 PM EDT This note was created using CAD Bestriter. Subjective Shawna Prajapati is a 57 year old male. H Review of Systems Constitutional: Negative for appetite change, diaphoresis, fever and unexpected weight change. HENT: Negative for congestion, postnasal drip and sore throat. Eyes: Negative. Respiratory: Positive for cough and wheezing. Gastrointestinal: Negative for blood in stool, diarrhea, nausea and vomiting. Genitourinary: Negative for difficulty urinating and dysuria. Skin: Negative for wound. Neurological: Negative for dizziness and headaches. Hematological: Negative for adenopathy. Does not bruise/bleed easily. ACTIVE PROBLEM LIST Seborrheic Dermatitis Asthma Copd (Chronic Obstructive Pulmonary Disease) ([facility]) Margarito On Cpap Hyperlipidemia Hypertension Coronary Artery Disease Involving [place] Heart Without Angina Pectoris PAST SURGICAL HISTORY Procedure Laterality Date CC CORONARY STENT 05/04/2020 ARNOLD to LAD & Circ, [facility] HERNIA REPAIR HX Right 1964 inguinal HERNIA REPAIR HX Left 1990 inguinal LAMINECTOMY,LUMBAR 11/08/2021 Dr. Cristóbal Maldonado Social History Tobacco Use Smoking status: Former Packs/day: 3.00 Years: 30.00 Pack years: 90.00 Types: Cigarettes Start date: 1981 Quit date: 05/02/2020 Years since quittin.2 Smokeless tobacco: Former Types: Snuff Quit date: 05/02/2020 Tobacco comments: Age 16-05/02/2019 Vaping Use Vaping Use: Never used Substance Use Topics Alcohol use: Not Currently Drug use: Never Social History Tobacco Use Smoking status: Former Packs/day: 3.00 Years: 30.00 Pack years: 90.00 Types: Cigarettes Start date: 1981 Quit date: 05/02/2020 Years since quittin.2 Smokeless tobacco: Former Types: Snuff Quit date: 05/02/2020 Tobacco comments: Age 16-05/02/2019 Vaping Use Vaping Use: Never used Substance Use Topics Alcohol use: Not Currently Drug use: Never Current Outpatient Medications Medication Sig xmpwnnehft-aflufvqu-nhwtxuezop (BREZTRI) 160-9-4.8 mcg/actuation HFA aerosol inhaler Inhale 2 Puffsas instructed twice daily. albuterol HFA (PROVENTIL HFA, VENTOLIN HFA) 90 mcg/actuation inhaler Inhale 2 Puffs as instructed every 4 hours as needed for wheezing/shortness of breath. caqzgveujks-ijddwplyo-yonspnvn (TRELEGY ELLIPTA) 200-62.5-25 mcg inhalation powder Inhale 1 Puff asinstructed once daily. aspirin, enteric coated (ASPIRIN, ENTERIC COATED) 81 mg EC tablet Take 81 mg by mouth once daily. atorvastatin (LIPITOR) 80 mg tablet Take 80 mg by mouth once daily. clopidogrel (PLAVIX) 75 mg tablet Take 75 mg by mouth once daily. lisinopril (ZESTRIL, PRINIVIL) 20 mg tablet Take 20 mg by mouth once daily. albuterol (PROVENTIL) 2.5 mg /3 mL (0.083 %) nebulizer solution Use 3 mL via nebulizer every 4 hours as needed for wheezing/shortness of breath. Use over 5-15minutes. metoprolol tartrate, short acting, (LOPRESSOR) 25 mg tablet Take 1 tablet by mouth twice daily. fluticasone (FLONASE ALLERGY RELIEF) 50 mcg/actuation nasal spray Use 2 Sprays in each nostril twice daily. 2 Sprays in each nostril twice daily x 2 weeks, Then decrease to 2 sprays in each nostril once daily (Patient not taking: Reported on 08/15/2022) omeprazole (PRILOSEC) 20 mg capsule Take 1 capsule by mouth once daily. (Patient not taking: Reported on 08/15/2022) No current facility-administered medications for this visit. Objective BP 114/66 (BP Site: Right Arm, BP Position: Sitting, BP Cuff Size: Large Adult) Pulse 60 Resp 16 Wt 95.3 kg (210 lb) BMI 32.89 kg/m Physical Exam Constitutional: General: He is not in acute distress. Appearance: He is not ill-appearing. HENT: Head: Normocephalic. Eyes: Conjunctiva/sclera: Conjunctivae normal. Neck: Vascular: No carotid bruit. Cardiovascular: Rate and Rhythm: Normal rate and regular rhythm. Heart sounds: No murmur heard. No gallop. Pulmonary: Effort: No respiratory distress. Breath sounds: No wheezing, rhonchi or rales. Abdominal: Palpations: Abdomen is soft. Tenderness: There is no abdominal tenderness. Musculoskeletal: Right lower leg: No edema. Left lower leg: No edema. Neurological: General: No focal deficit present. Mental Status: He is alert. Gait: Gait normal. Assessment and Plan 1. Chronic obstructive pulmonary disease, unspecified COPD type (HCC) - ICD9: 496, ICD10: J44.9 (primary diagnosis) Stable. Continue inhalers day of surgery. 2. Special screening for malignant neoplasms, colon - ICD9: V76.51, ICD10: Z12.11 - COLONOSCOPY SCREENING - PEG 3350 240 GRAM-ELECTROLYTES 22.72 GRAM-6.72 G-5.84 G POWDR FOR SOLN Patient indicated understanding and willingness to follow recommendations. 3. 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, unspecified vessel or lesion type - ICD9: 414.01, ICD10: I25.10 Stable. He will see cardiology tomorrow. Holding antiplatelet therapy per recommendation of cardiology. 4. Uncomplicated asthma, unspecified asthma severity, unspecified whether persistent - ICD9: 493.90, ICD10: J45.909 Stable. 5. Primary hypertension - ICD9: 401.9, ICD10: I10 - good control - Continue current medication(s) day of surgery. Samir Jordan MD * Promise Bernal TAMRA - 08/15/2022 3:45 PM EDT [facility] OPEN ACCESS QUESTIONNAIRE 1. Are you currently having any new or unusual stomach/gastrointestinal issues at this time such asconstipation, diarrhea, abdominal pain, rectal bleeding etc?No 2. Do you have any difficulty swallowing? Yes / twice a month 3. Do you have any implanted devices such as a defibrillator, pacemaker, cardiac stents or deep brain stimulator? Yes / heart stents 4. Do you take any Blood thinners such as Coumadin, Plavix, Xarelto, Eliquis, Brilinta or any otherblood thinner? YES:Plavix and Low dose aspirin 5. Do you have any new or past cardiac (heart) or pulmonary (lung) issues? Yes / COPD, asthma 6. Do you currently use any oxygen? Yes / 2L nightly w/C-Pap 7. Have you been hospitalized in the past 6 weeks? No 8. Have you had difficulty with anesthesia previously re: Difficult intubation? No Other difficulty or allergic reaction to anesthesia other than post op N/V? No 9. Are you on dialysis? No 10. Do you have any bleeding disorders such as hemophilia or Factor 5? No 11. Are you an Insulin Dependent Diabetic? No IF ANY OF THE TOP ELEVEN QUESTIONS ARE ANSWERED YES PLEASE SCHEDULE THE PATIENT FOR A CONSULT. advised 12. Is the patient's BMI 40 or greater? No:There is no height or weight on file to calculate BMI.. 13. Do you take any narcotics or anti-Anxiety medications? No 14. Do you use any illegal or recreational drugs including marijuana? No 15. Any alcohol use: No. 16. Have you been diagnosed with chronic liver disease such as hepatitis or cirrhosis? No 17. Do you have a seizure disorder? No 18. Do you have ulcerative colitis or Crohn's disease? No 19. Are you or could you be ? No 20. Any other important health information we should be made aware of prior to your colonoscopy? No To be completed by LIP: Did patient have MAC anesthesia with a previous endoscopy procedure? No Patient appropriate for Open Access Colonoscopy: Yes: appropriate for Open Access Procedure Checklist: Prior to closing the encounter: Complete questionnaire: Yes Confirm Prep order has been Ordered/Pended: Yes. Patient's procedure could be delayed if not given the script for the prep. Please ensure the prep is escripted to pharmacy or printed. Instructions for the prep will print upon filing or pending thissmartset. Please send all open access questionnaires to [facility] Pool #[id number] documented in this encounterGen[facility]04-03-2023 Instructions* Patient Instructions* Iggy Darden APRN.CNP - 07/29/2022 1:32 PM EDT Start using albuterol inhaler first before your maintenance inhaler in the morning. Use your nose spray everyday. Let us know if you have any nose bleeds. I started you on a medicine for heart burn as well. Follow up with Dr. Escamilla in 2 months. We will plan to do lung function testing if you are still having problems. Stop at the lab today for a lab test to check an allergy panel. Call us if you need anything! Thank you! documented in this encounterGenesis Hospital04-03-2023 History of Present illness Narrative* Iggy Darden APRN.CNP - 07/29/2022 1:00 PM EDT Patient: Shawna Prajapati PCP: Samir Jordan MD CC: COPD Stage 3 severe by GOLD classification HPI: Shawna Prjaapati 57 year old male previous smoker, 90 pack years (quitting 2020) with PMH significant for asthma, COPD, COVID infection 06/2021, GERD, HLD, HTN, MARGARITO on CPAP, CAD s/p [place] and stents. Since the last Pulmonary Clinic visit 05/28/2022, the patient has not required ED care for exacerbation. There has been no hospital admission for exacerbation. Claims to be consistently compliant with prescribed maintenance Rx Trelegy Ellipta and albuterol. Uses Trelegy first, coughs as soon as the powder hits his throat. Has been working on several projects at home doing wood working and cabinet making. Has to take frequent breaks d/t pain and dyspnea. Uses rescue bronchodilator use 3x per day for dyspnea for the last 2 weeks. Complains of cough. Triggered by heat and activity. Clear phlegm - hot glue and is sticky. Wheezes when he's dyspnea. Uses the inhaler helps for a little while. Occasional dyspnea at rest. Exertional dyspnea has gotten worse. He's not sure if it from his projects - has been using an electric saw with saw dust. Exposed to smoke in his apartment by the neighbors. Has sneezing/coughing. Not taking anything for allergies. Surgery on back last year, Hernia surgery planned. Has cardiology appt on 08/16/2022 for pre-op evaluation. PAST MEDICAL HISTORY Diagnosis Date Asthma 1990 COPD (chronic obstructive pulmonary disease) ([facility]) 2021 COVID-19 07/05/2021 EIC (epidermal inclusion cyst) 11/26/2019 Fibromyalgia 10/28/2016 Folliculitis 11/26/2019 GERD (gastroesophageal reflux disease) 01/27/2019 Hyperlipidemia 07/17/2021 Hypertension 07/17/2021 Irregular heartbeat NSTEMI (non-ST elevation myocardial infarction) ([facility]) 05/03/2020 [facility] [place], [place] MARGARITO on CPAP 2012 with nocturnal O2. Pancreatitis, chronic ([facility]) 09/07/2019 Seborrheic dermatitis 11/26/2019 Shingles outbreak 09/12/2021 Spinal stenosis, lumbar region with neurogenic claudication 11/20/2015 Allergies: Cabbage Other: See Comments Comment:dysphagia Lettuce Other: See Comments Comment:dysphagia Onion Extract Vomiting Garlic Oil GI Upset albuterol HFA (PROVENTIL HFA, VENTOLIN HFA) 90 mcg/actuation inhaler Inhale 2 Puffs as instructed every 4 hours as needed for wheezing/shortness of breath. nwtssoxnsqt-miavdovvm-linmzxva (TRELEGY ELLIPTA) 200-62.5-25 mcg inhalation powder Inhale 1 Puff asinstructed once daily. aspirin, enteric coated (ASPIRIN, ENTERIC COATED) 81 mg EC tablet Take 81 mg by mouth once daily. atorvastatin (LIPITOR) 80 mg tablet Take 80 mg by mouth once daily. clopidogrel (PLAVIX) 75 mg tablet Take 75 mg by mouth once daily. lisinopril (ZESTRIL, PRINIVIL) 20 mg tablet Take 20 mg by mouth once daily. albuterol (PROVENTIL) 2.5 mg /3 mL (0.083 %) nebulizer solution Use 3 mL via nebulizer every 4 hours as needed for wheezing/shortness of breath. Use over 5-15minutes. metoprolol tartrate, short acting, (LOPRESSOR) 25 mg tablet Take 1 tablet by mouth twice daily. DULERA 200-5 mcg/actuation inhaler Inhale 2 Puffs as instructed twice daily. Social History Tobacco Use Smoking status: Former Packs/day: 3.00 Years: 30.00 Pack years: 90.00 Types: Cigarettes Start date: 1981 Quit date: 05/02/2020 Years since quittin.2 Smokeless tobacco: Former Types: Snuff Quit date: 05/02/2020 Tobacco comments: Age 16-05/02/2019 Vaping Use Vaping Use: Never used Substance Use Topics Alcohol use: Never Drug use: Never Family History Adopted: Yes PAST SURGICAL HISTORY Procedure Laterality Date CC CORONARY STENT 05/04/2020 [facility] to LAD [facility] Circ, [facility] HERNIA REPAIR HX Right 1964 inguinal HERNIA REPAIR HX Left 1990 inguinal LAMINECTOMY,LUMBAR 11/08/2021 Dr. Cristóbal Maldonado BP 112/74 (BP Site: Right Arm, BP Position: Sitting, BP Cuff Size: Regular Adult) Pulse 60 Resp16 Ht 170.2 cm (5' 7) Wt 95.7 kg (211 lb) SpO2 96% BMI 33.05 kg/m I reviewed the past medical history, family history, social history and surgical history with changes noted above and updated in EMR. IMMUNIZATIONS Prevnar - 06/28/22 Influenza - declines COVID-19 - 09/01/2020, 09/27/2020, 12/11/2021 ROS: General: Generally feels okay. Having a lot of pain in his back and abdomen from his hernia. Appetite fair. Eyes, Ears, nose, throat: Positive for post nasal drip. Chronic rhinorrhea. Clear nasal discharge. Denies epistaxis, hoarseness. Vision stable. Cardiac: Denies angina, mild LE edema, denies orthopnea. Resp: See HPI. GI: Positive heartburn. Denies dysphagia, diarrhea. Musculoskeletal: Chronic back pain. Abdominal pain from hernia. Neuro: Denies headache, focal weakness, tremor. Skin: Denies rash. Otherwise negative. PHYSICAL EXAMINATION: Gen: No acute distress. Cooperative with examination. HEENT: Normocephalic. Sclera, conjunctiva clear. Oral hygeine and dentition good. No thrush. Resp: No stridor, accessory respiratory muscle use, supra-sternal or intercostal retractions. No wheezes, crackles. Diminished in all watkins. CV: Regular rythm. Heart tones S1S2. No carotid bruit. Radial pulses normal. Abd: Not distended. MSK: No kyphoscoliosis. Ext: Warm and well perfused. No clubbing, cyanosis. Skin: No rash, ecchymoses. Neuro: Mental status normal. Affect normal. No tremor. DATA: ORAL EXHALED NITRIC OXIDE 05/28/2022 Oral Exhaled Nitric Oxide measurement: 7.0 (ppb) PFT 05/28/2022 PRE-BRONCH POST-BRONCH Pre LLN Pred ULN %Pred Post %Pred %Chg SPIROMETRY FVC (L) 2.94 3.26 4.25 5.25 69 3.22 75 6 FEV1 (L) 1.23 2.53 3.33 4.08 37 1.43 42 5 FEV1/FVC 0.42 0.67 0.78 0.89 53 0.44 56 5 PEF L/s (L/sec) 2.99 6.59 8.71 10.83 34 3.39 38 13 FEF50 (L/sec) 0.43 1.86 3.98 6.11 10 0.61 15 42 FIF50 (L/sec) 2.25 2.47 9 FEF50/FIF50 0.19 90-100 0.25 29 FIVC (L) 2.49 2.84 13 LQE37-24 (L/sec) 0.32 1.46 2.90 4.83 11 0.54 18 65 Time (sec 13.93 13.82 0 FET PEF (sec) 0.06 0.05 -23 MOUSTAPHA (L) 0.03 0.02 -27 Vol Extrap % (%) 1 1 -34 CXR, xx CT chest, xx Echocardiogram, xx ASSESSMENT AND PLAN: (J44.9) COPD (Chronic Obstructive Pulmonary Disease). - Chronic cough and dyspnea, GOLD Stage 3, FEV1 37% as of 05/28/2022 - Current regimen is: Trelegy inhaler once daily and albuterol inhaler PRN every 4 hours for dyspnea/wheezing. Using albuterol 3-4x per day over the last 2 weeks (J42) Chronic bronchitis, unspecified chronic bronchitis type (HCC) (primary encounter diagnosis) - Worsening symptoms over the last 2 weeks. Patient not using Trelegy inhaler properly d/t irritation from powder inhaler. Will send Breztri instead. - Instructed patient to use albuterol inhaler 15-30 minutes prior to maintenance inhaler for betterpenetration of drug. - Will check allergen panel d/t worsening cough and sneezing Plan: hpfizqaxhe-cquacpyf-vwoqeokpav (BREZTRI) 160-9-4.8 mcg/actuation HFA aerosol inhaler, [facility] (J31.0) Chronic rhinitis - Complains of constant post nasal drip, sneezing. Will start Flonase today. If no significant improvement, will add Singulair. Plan: fluticasone (FLONASE ALLERGY RELIEF) 50 mcg/actuation nasal spray, [facility] (K21.9) Gastroesophageal reflux disease without esophagitis Plan: omeprazole (PRILOSEC) 20 mg capsule RTC in 2 months with Catherine Desir PA-C Associated attestation - Calli Desir PA-C - 07/29/2022 2:31 PM EDT I have personally performed a face to face assessment of the patient and have reviewed the TEJ note. I performed a substantive portion of the visit including all aspects of the following. My abrams findings include: History is as noted Exam is lungs CTAB with diminished breath sounds. Medical Decision Making Change to Breztri with Aerochamber. Start Flonase for pnd and omeprazole for GERD. Other additions or changes: None Signature: Calli Desir PA-C Date: 07/29/2022 Time: 2:30 PM documented in this encounterGenesis Hospital03-28-2023 History of Present illness Narrative* Michelle Castaneda MD - 07/23/2022 6:12 PM EDT HISTORY AND PHYSICAL Shawna Prajapati 1965 REFERRING PHYSICIAN: Samir Jordan MD CHIEF COMPLAINT: Consult (Umb hernia) HPI: Shawna is a 56 year old male with a complaint of a bulge and discomfort in his mid abdomen. The patient notes discomfort in this area with pressing on the supraumbilical area. The symptoms haveincreased, over the past 3 months. The patient notes no symptoms of bowel obstruction and denies nausea or vomiting. The patient was seen by his primary care physician who felt the patient has a hernia. Shawna was referred for evaluation and treatment. On evaluation I suspect that he had a supraumbilical hernia but got approved so. I was also concerned given his past history that he could have a degree of cirrhosis and/or ascites. I obtained a CT scan of the abdomen pelvis. This was obtained on July 15, 2022. This demonstrated: IMPRESSION: 1. Small supraumbilical hernia with haziness of the fat suggesting some degree of inflammation. 2. 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 Suggest nonemergent vascular consult. 3. Hepatic steatosis. Patient has a history of asthma COPD. Spirometry notes an FVC of 69% predicted and an FEV1 of 37% predicted with an FEV1 of 1.23 L. He notes a history of myocardial infarction 2020 with stent placement and is currently on Plavix. He states his professor of psychology was Dr. Hanson in [place] but has not seen him for some time and needs to establish with cardiology locally. Did obtain records from Dr. Hanson's office. We received a reply that the patient did not follow-up with Dr. Hanson after his initial stent placement in 2000. Upon further discussion with the patient today he states he has not seen a professor of psychology since discharge from the hospital for stent placement after his myocardial infarction The patient is being seen by me today at the request of Dr. Samir Jordan MD for my opinion and advice regarding ventral hernia. PAST MEDICAL HISTORY Diagnosis Date Asthma 1990 COPD (chronic obstructive pulmonary disease) ([facility]) 2021 COVID-19 07/05/2021 EIC (epidermal inclusion cyst) 11/26/2019 Fibromyalgia 10/28/2016 Folliculitis 11/26/2019 GERD (gastroesophageal reflux disease) 01/27/2019 Hyperlipidemia 07/17/2021 Hypertension 07/17/2021 Irregular heartbeat NSTEMI (non-ST elevation myocardial infarction) ([facility]) 05/03/2020 [place], [place] MARGARITO on CPAP 2012 with nocturnal O2. Pancreatitis, chronic ([facility]) 09/07/2019 Seborrheic dermatitis 11/26/2019 Shingles outbreak 09/12/2021 Spinal stenosis, lumbar region with neurogenic claudication 11/20/2015 PAST SURGICAL HISTORY Procedure Laterality Date CC CORONARY STENT 05/04/2020 [facility] to L[facility] & Circ, [facility] HERNIA REPAIR HX Right 1964 inguinal HERNIA REPAIR HX Left 1990 inguinal LAMINECTOMY,LUMBAR 11/08/2021 Dr. Cristóbal Maldonado Current Outpatient Medications Medication Sig albuterol HFA (PROVENTIL HFA, VENTOLIN HFA) 90 mcg/actuation inhaler Inhale 2 Puffs as instructed every 4 hours as needed for wheezing/shortness of breath. humbvxhxjgp-zfgifvsag-vzzwvcsw (TRELEGY ELLIPTA) 200-62.5-25 mcg inhalation powder Inhale 1 Puff asinstructed once daily. aspirin, enteric coated (ASPIRIN, ENTERIC COATED) 81 mg EC tablet Take 81 mg by mouth once daily. atorvastatin (LIPITOR) 80 mg tablet Take 80 mg by mouth once daily. clopidogrel (PLAVIX) 75 mg tablet Take 75 mg by mouth once daily. lisinopril (ZESTRIL, PRINIVIL) 20 mg tablet Take 20 mg by mouth once daily. albuterol (PROVENTIL) 2.5 mg /3 mL (0.083 %) nebulizer solution Use 3 mL via nebulizer every 4 hours as needed for wheezing/shortness of breath. Use over 5-15minutes. metoprolol tartrate, short acting, (LOPRESSOR) 25 mg tablet Take 1 tablet by mouth twice daily. DULERA 200-5 mcg/actuation inhaler Inhale 2 Puffs as instructed twice daily. No current facility-administered medications for this visit. ALLERGIES: Cabbage, Lettuce, Onion Extract, and Garlic Oil PERSONAL HISTORY: Social History Tobacco Use Smoking status: Former Packs/day: 3.00 Years: 30.00 Pack years: 90.00 Types: Cigarettes Start date: 1981 Quit date: 05/02/2020 Years since quittin.2 Smokeless tobacco: Former Types: Snuff Quit date: 05/02/2020 Tobacco comments: Age 16-05/02/2019 Vaping Use Vaping Use: Never used Substance Use Topics Alcohol use: Never Drug use: Never FAMILY HISTORY: FAMILY HISTORY Adopted: Yes REVIEW OF SYMPTOMS: The review of systems data was entered by the nurse and reviewed by me There are no exam notes on file for this visit. PHYSICAL EXAMINATION: General: The patient is 56 year old male, well nourished, well hydrated in no acute distress. The patient is oriented to time, place, and person. VITALS: Blood pressure 132/80, pulse 64, temperature 36.5 C (97.7 F), weight 95 kg (209 lb 6.4 oz),SpO2 96 %. Body mass index is 32.8 kg/m . HEENT: Normal cephalic, ataumatic, pupils are equally round, sclera are anicteric, mucous membranesare moist, oropharynx is clear. Neck has no masses, asymmetry or lymphadenopathy. Thyroid is unremarkable. Respiratory: Somewhat distant auscultation. Normal respiratory excursion and pattern. Cardiac: Examination is regular rate and rhythm. Abdominal exam: Soft, n tender in the supraumbilical area with what is felt to be relatively vague hernia in the location. No obvious hernia right of the umbilicus with no palpable masses. Patient does not have obvious hepatosplenomegaly but does have some degree of abdominal distention which she says is worse recently no obvious fluid wave but exam suspicious for ascites Rectal exam: exam deferred Extremities: no clubbing, cyanosis or edema. No adenopathy. Other: LABORATORY VALUES: As Noted RADIOLOGIC STUDIES: As Noted Assessment IMPRESSION: Ventral hernia - supraumbilical space, history of coronary disease on Plavix, severe COPD, no signs of cirrhosis or ascites on CT scan PLAN: The patient has a history of coronary disease and advanced COPD. We have pulmonary functions I needrecommendations from professor of psychology about his cardiac function any previous echocardiograms and recommendations for the ability to hold his anticoagulation in the perioperative phase. Plan to do his surgical procedure laparoscopically would prefer to be able to hold his oral anticoagulation for 5 days if possible. If he is deemed to be an appropriate risk, my plan is to perform a laparoscopic ventral hernia repair with mesh. The planned surgical procedure was discussed extensively with the patient. The risks, benefits, anticipated outcomes and possible complications were mentioned. Shawna beasleyands that all hernia repair surgery has a chance of recurrence and/or chronic post operative pain. My staff has also explained the procedure in understandable terms and the patient was given the option to take printed material concerning the planned procedure. The patient had the opportunity to ask questions concerning the planned procedure. The patient freely consents to the planned procedure. My findings have been communicated to Dr. Samir Jordan MD via shared medical record. This note will be forwarded to Dr. Samir Jordan MD. To see Dr. Ming Albarran in cardiology on August 16. I will forward this note to him. Diagnoses: (K43.7) Ventral hernia with gangrene (primary encounter diagnosis) (G47.33, Z99.89) MARGARITO on CPAP (I25.10) Coronary artery disease, unspecified vessel or lesion type, unspecified whether angina present, unspecified whether pechanga or transplanted heart Return to Clinic: The patient is instructed to follow-up with me after above valuation to schedule surgical intervention. Michelle Castaneda MD documented in this encounterGenesis Hospital03-20-2023 History of Present illness Narrative* Joseluis LimonFiliberto, RT(R) - 07/15/2022 2:20 PM EDT Radiology Service Progress Note DATE OF SERVICE: July 15, 2022 TIME: 3:10 PM PATIENT IDENTITY VERIFICATION COMPLETED USING TWO (2) STANDARD IDENTIFIERS: Name and Date of confirmed by patient verbally. FALL SCREENING: Has the patient had 2 falls in the last year or 1 fall with injury or currently using an Ambulatory Assistive Device (Walker, Cane, Wheelchair, Crutches, etc.)? No PATIENT GENDER DATA: Male PATIENT RELEVANT IMPLANT DATA REVIEWED: Yes ALLERGIES: Reviewed and unchanged CONTRAST ALLERGY: NO. EXAM: CT -CONTRAST INDUCED NEPHROPATHY RISK FACTORS: Not applicable CREATININE: Creatinine Date Value Ref Range Status 05/18/2022 1.02 0.73 - 1.22 mg/dL Final Estimated Glomerular Filtration Rate Date Value Ref Range Status 05/18/2022 86 >=60 mL/min/1.73m Final Comment: Estimated Glomerular Filtration Rate (eGFR) is calculated using the 2020 CKD-EPI creatinine equation. This equation utilizes serum creatinine, sex, and age as parameters. The creatinine assay has traceable calibration to isotope dilution- mass spectrometry. Refer to KDIGO guidelines for clinical interpretation. In patients with unstable renal function, e.g. those with acute kidney injury, the eGFRmay not accurately reflect actual GFR. P.O.C.T. RESULTS: POC done: Yes, See Lab Tab July 15, 2022 TREATMENT: N/A PERIPHERAL IV DATA: Ambulatory: A peripheral IV was started in the Left antecubital site with a Angio cath: 22 gauge. RADIOLOGY DEPARTMENT: CT; Exam(s) Completed: Abdomen/Pelvis SIGNATURE: RT Wilman(R) PATIENT NAME: Shawna Prajapati DATE: July 15, 2022 TIME: 3:10 PM documented in this encounterGenesis Hospital03-07-2023 History of Present illness Narrative* Michelle Castaneda MD - 07/02/2022 6:45 PM EST HISTORY AND PHYSICAL Shawna Prajapati 1965 REFERRING PHYSICIAN: Samir Jordan MD CHIEF COMPLAINT: Consult (Umb hernia) HPI: Shawna is a 56 year old male with a complaint of a bulge and discomfort in his mid abdomen. The patient notes discomfort in this area with pressing on the supraumbilical area. The symptoms haveincreased, over the past 3 months. The patient notes no symptoms of bowel obstruction and denies nausea or vomiting. The patient was seen by his primary care physician who felt the patient has a hernia. Shawna was referred for evaluation and treatment. Patient has a history of asthma COPD. Spirometry notes an FVC of 69% predicted and an FEV1 of 37% predicted with an FEV1 of 1.23 L. He notes a history of myocardial infarction 2020 with stent placement and is currently on Plavix. He states his professor of psychology was Dr. Hanson in [place] but has not seen him for some time and needs to establish with cardiology locally. The patient is being seen by me today at the request of Dr. Samir Jordan MD for my opinion and advice regarding ventral hernia. PAST MEDICAL HISTORY Diagnosis Date Asthma 1990 COPD (chronic obstructive pulmonary disease) ([facility]) 2021 COVID-19 07/05/2021 EIC (epidermal inclusion cyst) 11/26/2019 Fibromyalgia 10/28/2016 Folliculitis 11/26/2019 GERD (gastroesophageal reflux disease) 01/27/2019 Hyperlipidemia 07/17/2021 Hypertension 07/17/2021 Irregular heartbeat NSTEMI (non-ST elevation myocardial infarction) ([facility]) 05/03/2020 [place], [place] MARGARITO on CPAP 2012 with nocturnal O2. Pancreatitis, chronic ([facility]) 09/07/2019 Seborrheic dermatitis 11/26/2019 Shingles outbreak 09/12/2021 Spinal stenosis, lumbar region with neurogenic claudication 11/20/2015 PAST SURGICAL HISTORY Procedure Laterality Date CC CORONARY STENT 05/04/2020 [facility] to L[facility] & Circ, [facility] HERNIA REPAIR HX Right 1964 inguinal HERNIA REPAIR HX Left 1990 inguinal LAMINECTOMY,LUMBAR 11/08/2021 Dr. Cristóbal Maldonado Current Outpatient Medications Medication Sig albuterol HFA (PROVENTIL HFA, VENTOLIN HFA) 90 mcg/actuation inhaler Inhale 2 Puffs as instructed every 4 hours as needed for wheezing/shortness of breath. iaukqizglqs-imnjlwfvu-tydvamxz (TRELEGY ELLIPTA) 200-62.5-25 mcg inhalation powder Inhale 1 Puff asinstructed once daily. aspirin, enteric coated (ASPIRIN, ENTERIC COATED) 81 mg EC tablet Take 81 mg by mouth once daily. atorvastatin (LIPITOR) 80 mg tablet Take 80 mg by mouth once daily. clopidogrel (PLAVIX) 75 mg tablet Take 75 mg by mouth once daily. lisinopril (ZESTRIL, PRINIVIL) 20 mg tablet Take 20 mg by mouth once daily. albuterol (PROVENTIL) 2.5 mg /3 mL (0.083 %) nebulizer solution Use 3 mL via nebulizer every 4 hours as needed for wheezing/shortness of breath. Use over 5-15minutes. metoprolol tartrate, short acting, (LOPRESSOR) 25 mg tablet Take 1 tablet by mouth twice daily. DULERA 200-5 mcg/actuation inhaler Inhale 2 Puffs as instructed twice daily. iv contrast (will be provided with radiology test) CT ABD/PEL -Inject, intravenously, once for 1 dose.No IV access, insert saline lock prior to the beginning of sedation, infusion, injection of imaging exam. Discontinue saline lock post exam. If Pt. has a central line or IVAD, may access for administration according to line specific nursing protocol. Once exam is complete flush line and de-accessaccording to line specific nursing protocol in the CT contrast administration guidelines link. enteric contrast (will be provided with radiology test) For CT ABD/PEL W IVCON Routine order Administer, As Directed One Time Only, via Oral, Rectal, both Oral and Rectal, Enteric Tube, Stoma or Indwelling Catheter, Enteric Contrast as designated per enteric contrast guidelines No current facility-administered medications for this visit. ALLERGIES: Cabbage, Lettuce, Onion Extract, and Garlic Oil PERSONAL HISTORY: Social History Tobacco Use Smoking status: Former Packs/day: 3.00 Years: 30.00 Pack years: 90.00 Types: Cigarettes Start date: 1981 Quit date: 05/02/2020 Years since quittin.1 Smokeless tobacco: Former Types: Snuff Quit date: 05/02/2020 Tobacco comments: Age 16-05/02/2019 Vaping Use Vaping Use: Never used Substance Use Topics Alcohol use: Never Drug use: Never FAMILY HISTORY: FAMILY HISTORY Adopted: Yes REVIEW OF SYMPTOMS: The review of systems data was entered by the nurse and reviewed by nm Nursing Notes: Jessica Mejía RN 07/02/2022 3:04 PM Signed REVIEW OF SYSTEMS: General: The patient denies fatigue, denies weight loss, denies weight gain, denies feeling hot, and denies feelings of cold. Eyes: The patient denies glaucoma, denies eye injury/surgery, does not wear glasses or contacts. Ear/Nose/Throat: The patient NOTES allergies, denies hayfever, denies ear infections, and denies bloody noses. Cardiovascular: The patient denies chest pain, NOTES heart disease, denies high blood pressure,NOTES cardiac stent, NOTES prior heart attack, NOTES irregular heart beat, NOTES high cholesterol, denies poor circulation, NOTES heart failure, other cardiac issues, denies claudication, denies cold feet, denies peripheral arterial stent. Respiratory: The patient denies tuberculosis, denies pneumonia, denies frequent cough, denies pulmonary embolism, NOTES shortness of breath, and denies coughing up blood. Gastrointestinal: The patient denies difficulty swallowing, NOTES acid reflux, denies ulcers, denies vomiting, denies jaundice/hepatitis, denies gallbladder problems, denies black or tarry stools, denies hemorrhoids, denies bleeding from rectum, denies diverticulitis, denies constipation, denies diarrhea, denies loss of stool control, and NOTES hernias. Kidney/Bladder: The patient denies kidney stones, denies urine infections, and denies bloody urine. Skin: The patient denies a history of skin cancer, denies bleeding/changing moles, and denies a history of skin rash. Neurologic: The patient denies a history of epilepsy/convulsions, denies headaches, denies head/spinal injuries, and denies stroke/TIA. Psychiatric: The patient denies psychiatric medications, denies depression, and denies voices, denies substance abuse. Endocrine: The patient denies thyroid disorders, denies diabetes, and denies hormonal problems. Hematologic: The patient denies a history of bruising, denies bleeding, and denies anemia, denies blood clots. Infections: The patient denies a history of measles and mumps, denies rheumatic fever, and denies sexually transmitted diseases.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 Folliculitis 11/26/2019 05/17/2022 documented as of this encounter (statuses as of 12/24/2022) [address]2020 History of Past illness Narrative* Problem Noted Date Diagnosed Date Resolved Date EIC (epidermal inclusion cyst) 11/26/2019 05/17/2022 Folliculitis 11/26/2019 05/17/2022 documented as of this encounter (statuses as of 12/27/2022) [address]2020 History of Past illness Narrative* Problem Noted Date Diagnosed Date Resolved Date EIC (epidermal inclusion cyst) 11/26/2019 05/17/2022 Folliculitis 11/26/2019 05/17/2022 documented as of this encounter (statuses as of 12/27/2022) [address]2020 History of Past illness Narrative* Problem Noted Date Diagnosed Date Resolved Date EIC (epidermal inclusion cyst) 11/26/2019 05/17/2022 Folliculitis 11/26/2019 05/17/2022 documented as of this encounter (statuses as of 01/01/2023) [address] History of Past illness Narrative* Problem Noted Date Diagnosed Date Resolved Date EIC (epidermal inclusion cyst) 11/26/2019 05/17/2022 Folliculitis 11/26/2019 05/17/2022 documented as of this encounter (statuses as of 01/16/2023) [place] [address] History of Past illness Narrative* Problem Noted Date Diagnosed Date Resolved Date EIC (epidermal inclusion cyst) 11/26/2019 05/17/2022 Folliculitis 11/26/2019 05/17/2022 documented as of this encounter (statuses as of 01/17/2023) [address] History of Past illness Narrative* Problem Noted Date Diagnosed Date Resolved Date EIC (epidermal inclusion cyst) 11/26/2019 05/17/2022 Folliculitis 11/26/2019 05/17/2022 documented as of this encounter (statuses as of 01/28/2023) [address]2020 History of Past illness Narrative* Problem Noted Date Diagnosed Date Resolved Date EIC (epidermal inclusion cyst) 11/26/2019 05/17/2022 Folliculitis 11/26/2019 05/17/2022 documented as of this encounter (statuses as of 01/28/2023) [address] History of Past illness Narrative* Problem Noted Date Diagnosed Date Resolved Date EIC (epidermal inclusion cyst) 11/26/2019 05/17/2022 Folliculitis 11/26/2019 05/17/2022 documented as of this encounter (statuses as of 01/30/2023) [address] History of Past illness Narrative* Problem Noted Date Diagnosed Date Resolved Date EIC (epidermal inclusion cyst) 11/26/2019 05/17/2022 Folliculitis 11/26/2019 05/17/2022 documented as of this encounter (statuses as of 01/31/2023) [address] History of Past illness Narrative* Problem Noted Date Diagnosed Date Resolved Date EIC (epidermal inclusion cyst) 11/26/2019 05/17/2022 Folliculitis 11/26/2019 05/17/2022 documented as of this encounter (statuses as of 03/03/2023) [address]2020 History of Past illness Narrative* Problem Noted Date Diagnosed Date Resolved Date EIC (epidermal inclusion cyst) 11/26/2019 05/17/2022 Folliculitis 11/26/2019 05/17/2022 documented as of this encounter (statuses as of 03/03/2023) [address] History of Past illness Narrative* Problem Noted Date Diagnosed Date Resolved Date EIC (epidermal inclusion cyst) 11/26/2019 05/17/2022 Folliculitis 11/26/2019 05/17/2022 documented as of this encounter (statuses as of 03/03/2023) [address] History of Past illness Narrative* Problem Noted Date Diagnosed Date Resolved Date EIC (epidermal inclusion cyst) 11/26/2019 05/17/2022 Folliculitis 11/26/2019 05/17/2022 documented as of this encounter (statuses as of 03/03/2023) [address] History of Past illness Narrative* Problem Noted Date Diagnosed Date Resolved Date EIC (epidermal inclusion cyst) 11/26/2019 05/17/2022 Folliculitis 11/26/2019 05/17/2022 documented as of this encounter (statuses as of 03/03/2023) [address] History of Past illness Narrative* Problem Noted Date Diagnosed Date Resolved Date EIC (epidermal inclusion cyst) 11/26/2019 05/17/2022 Folliculitis 11/26/2019 05/17/2022 documented as of this encounter (statuses as of 03/03/2023) [address] History of Past illness Narrative* Problem Noted Date Diagnosed Date Resolved Date EIC (epidermal inclusion cyst) 11/26/2019 05/17/2022 Folliculitis 11/26/2019 05/17/2022 documented as of this encounter (statuses as of 03/03/2023) [address] History of Past illness Narrative* Problem Noted Date Diagnosed Date Resolved Date EIC (epidermal inclusion cyst) 11/26/2019 05/17/2022 Folliculitis 11/26/2019 05/17/2022 documented as of this encounter (statuses as of 03/28/2023) [address]2020 History of Past illness Narrative* Problem Noted Date Diagnosed Date Resolved Date EIC (epidermal inclusion cyst) 11/26/2019 05/17/2022 Folliculitis 11/26/2019 05/17/2022 documented as of this encounter (statuses as of 03/28/2023) [place] [address] History of Past illness Narrative* Problem Noted Date Diagnosed Date Resolved Date EIC (epidermal inclusion cyst) 11/26/2019 05/17/2022 Folliculitis 11/26/2019 05/17/2022 documented as of this encounter (statuses as of 06/05/2023) [place] [address] History of Past illness Narrative* Problem Noted Date Diagnosed Date Resolved Date EIC (epidermal inclusion cyst) 11/26/2019 05/17/2022 Folliculitis 11/26/2019 05/17/2022 documented as of this encounter (statuses as of 06/27/2023) [place] [address] History of Past illness Narrative* Problem Noted Date Diagnosed Date Resolved Date EIC (epidermal inclusion cyst) 11/26/2019 05/17/2022 Folliculitis 11/26/2019 05/17/2022 documented as of this encounter (statuses as of 07/11/2023) [address] History of Past illness Narrative* Problem Noted Date Diagnosed Date Resolved Date EIC (epidermal inclusion cyst) 11/26/2019 05/17/2022 Folliculitis 11/26/2019 05/17/2022 documented as of this encounter (statuses as of 07/17/2023) [place] [address] History of Past illness Narrative* Problem Noted Date Diagnosed Date Resolved Date EIC (epidermal inclusion cyst) 11/26/2019 05/17/2022 Folliculitis 11/26/2019 05/17/2022 documented as of this encounter (statuses as of 07/18/2023) [address] History of Past illness Narrative* Problem Noted Date Diagnosed Date Resolved Date EIC (epidermal inclusion cyst) 11/26/2019 05/17/2022 Folliculitis 11/26/2019 05/17/2022 documented as of this encounter (statuses as of 07/18/2023) [place] [address] History of Past illness Narrative* Problem Noted Date Diagnosed Date Resolved Date EIC (epidermal inclusion cyst) 11/26/2019 05/17/2022 Folliculitis 11/26/2019 05/17/2022 documented as of this encounter (statuses as of 07/31/2023) [facility]07[facility]31-2020 History of Past illness Narrative* Problem Noted Date Diagnosed Date Resolved Date EIC (epidermal inclusion cyst) 11/26/2019 05/17/2022 Folliculitis 11/26/2019 05/17/2022 documented as of this encounter (statuses as of 08/08/2023) [facility] note* Diagnosis Bilateral lower extremity edema- Primary Edema documented [facility] encounter [facility] noteNo assessment information available [facility] Work Phone: evaluation note* Diagnosis Onset Date Resolution Status Encounter for laboratory testing for COVID-19 virus acute Shingles acute Declining functional status acute Post-op pain acute [facility] Work Phone: evaluation note* Diagnosis Onset Date Resolution Status Encounter for laboratory testing for COVID-19 virus acute Shingles acute Constipation acute Declining functional status acute Lumbar stenosis acute Post-op pain acute [facility] Work Phone: evaluation note* Diagnosis Onset Date Resolution Status Constipation resolved [facility] Work Phone: evaluation note* Diagnosis SOB (shortness of breath) Shortness of breath documented in this encounter [facility] note* Diagnosis SOB (shortness of breath) Shortness of breath documented in this encounter [facility] note* Diagnosis Umbilical hernia without obstruction and without gangrene- Primary Need for vaccination Need for prophylactic vaccination and inoculation against unspecified single disease Chronic obstructive pulmonary disease, unspecified COPD type (HCC) documented in this encounter [facility] note* Diagnosis Ventral hernia with gangrene- Primary Ventral hernia, unspecified, with gangrene Umbilical hernia without obstruction and without gangrene MARGARITO on CPAP Obstructive sleep apnea (adult) (pediatric) Chronic obstructive pulmonary disease, unspecified COPD type (HCC) Coronary artery disease, unspecified vessel or lesion type, unspecified whether angina present, unspecified whether pechanga or transplanted heart documented in this encounter [facility] note* Diagnosis Ventral hernia with gangrene- Primary Ventral hernia, unspecified, with gangrene MARGARITO on CPAP Obstructive sleep apnea (adult) (pediatric) Coronary artery disease, unspecified vessel or lesion type, unspecified whether angina present, unspecified whether pechanga or transplanted heart documented in this encounter [facility] note* Diagnosis Chronic bronchitis, unspecified chronic bronchitis type (HCC)- Primary Chronic rhinitis Gastroesophageal reflux disease without esophagitis Esophageal reflux documented in this encounter [facility] note* Diagnosis Chronic obstructive pulmonary disease, unspecified COPD type (HCC)- Primary Special screening for malignant neoplasms, colon 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, unspecified vessel or lesion type Uncomplicated asthma, unspecified asthma severity, unspecified whether persistent Primary hypertension Unspecified essential hypertension documented in this encounter [facility] note* Diagnosis 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, unspecified vessel or lesion type- Primary Encounter for other preprocedural examination Preoperative cardiovascular examination Pre-operative cardiovascular examination Essential hypertension Unspecified essential hypertension Mixed hyperlipidemia documented in this encounter [facility] note* Diagnosis Tobacco abuse Tobacco use disorder documented in this encounter [facility] note* Diagnosis Acute pain of right shoulder- Primary documented in this encounter [facility] note* Diagnosis Stage 3 severe COPD by GOLD classification ([facility])- Primary Gastroesophageal reflux disease without esophagitis Esophageal reflux Former cigarette smoker Personal history of tobacco use, presenting hazards to health Dysphagia, unspecified type documented in this encounter [facility] note* Diagnosis Encounter for screening for lung cancer- Primary Former cigarette smoker Personal history of tobacco use, presenting hazards to health documented in this encounter [facility] note* Diagnosis Onset Date Resolution Status Bilateral lower extremity edema acute Delusions acute Exertional dyspnea acute Homelessness acute Hypokalemia acute Hypoxia acute [facility] Work Phone: Evaluation note* Diagnosis Chronic deep vein thrombosis (DVT) of calf muscle vein of right lower extremity (HCC)- Primary Obesity, Class I, BMI 30-34.9 Obesity, unspecified 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, unspecified vessel or lesion type Chronic obstructive pulmonary disease, unspecified COPD type (HCC) Hyperlipidemia, unspecified hyperlipidemia type Primary hypertension Unspecified essential hypertension Homelessness Lack of housing Delusions (HCC) Unspecified paranoid state documented in this encounter [facility] note* Diagnosis Bilateral edema of lower extremity- Primary Edema SOB (shortness of breath) Shortness of breath Abdominal distension Flatulence, eructation, and gas pain Weight gain Abnormal weight gain Fatigue, unspecified type Delusions (HCC) Unspecified paranoid state Need for influenza vaccination Need for prophylactic vaccination and inoculation against influenza [facility] Abdominal distension- Primary Flatulence, eructation, and gas pain Elevated LFTs Other abnormal blood chemistry [facility] Diagnosis Stage 3 severe COPD by GOLD classification (HCC)- Primary Former cigarette smoker Personal history of tobacco use, presenting hazards to health Lung nodules Other nonspecific abnormal finding of lung field [facility] Diagnosis Onset Date Resolution Status Delusions acute Exertional dyspnea acute Hypoxia acute Bilateral lower extremity edema resolved Hypokalemia resolved [facility] Work Phone: [facility]* Diagnosis SOB (shortness of breath) Shortness of breath [facility] Diagnosis Subcutaneous nodule of back [facility]* Diagnosis Umbilical hernia without obstruction and without gangrene Ventral hernia with gangrene Ventral hernia, unspecified, with gangrene [facility] Diagnosis Abdominal distension Flatulence, eructation, and gas pain Elevated LFTs Other abnormal blood chemistry [facility]* Diagnosis Former cigarette smoker Personal history of tobacco use, presenting hazards to health Encounter for screening for lung cancer [facility] Encounter for other preprocedural examination [facility] Diagnosis Chronic deep vein thrombosis (DVT) of calf muscle vein of right lower extremity (HCC)- Primary Gastroesophageal reflux disease without esophagitis Esophageal reflux Homelessness Lack of housing Primary hypertension Unspecified essential hypertension Need for COVID-19 vaccine Delusions (HCC) Unspecified paranoid state [facility] Diagnosis Podagra- Primary Acute gouty arthropathy Chronic deep vein thrombosis (DVT) of calf muscle vein of right lower extremity (HCC) Primary hypertension Unspecified essential hypertension [facility] Diagnosis Pain in toes of both feet- Primary Chronic deep vein thrombosis (DVT) of calf muscle vein of right lower extremity (HCC) Chronic obstructive pulmonary disease, unspecified COPD type (HCC) 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, unspecified vessel or lesion type Primary hypertension Unspecified essential hypertension [facility]* Diagnosis Chronic deep vein thrombosis (DVT) of calf muscle vein of right lower extremity (HCC)- Primary Bilateral edema of lower extremity Edema Primary hypertension Unspecified essential hypertension Homelessness Lack of housing [facility] Diagnosis Chronic deep vein thrombosis (DVT) of calf muscle vein of right lower extremity (HCC)- Primary [facility]* Diagnosis Stage 3 severe COPD by GOLD classification ([facility])- Primary Former cigarette smoker Personal history of tobacco use, presenting hazards to health Lung nodules Other nonspecific abnormal finding of lung field [facility]* Diagnosis Primary hypertension- Primary Unspecified essential hypertension Bilateral edema of lower extremity Edema Abnormal finding on liver function Unspecified disorder of liver Hyperlipidemia, unspecified hyperlipidemia type Abrasion of foot or toe, left, initial encounter [facility] Diagnosis Sinobronchitis- Primary Unspecified sinusitis (chronic) History of COPD Personal history of other diseases of respiratory system [facility]* Diagnosis Chronic obstructive pulmonary disease with acute exacerbation (HCC)- Primary Obstructive chronic bronchitis with exacerbation History of hemoptysis Thrush (oral) [facility]* Diagnosis Gastroesophageal reflux disease without esophagitis Esophageal reflux [facility]* Diagnosis Thrush (oral) [facility]* Diagnosis Chronic deep vein thrombosis (DVT) of calf muscle vein of right lower extremity (HCC) [facility]* Diagnosis Gastroesophageal reflux disease without esophagitis Esophageal reflux [facility]* Diagnosis Generalized abdominal pain- Primary Abdominal pain, generalized Constipation, unspecified constipation type Gastroesophageal reflux disease without esophagitis Esophageal reflux [facility]* Diagnosis Gastroesophageal reflux disease without esophagitis- Primary Esophageal reflux Constipation, unspecified constipation type Screening for depression Encounter for screening examination for other mental health and behavioral disorders History of tobacco use Personal history of tobacco use, presenting hazards to health [facility] Primary hypertension Unspecified essential hypertension Bilateral edema of lower extremity Edema [facility]* Diagnosis Chronic obstructive pulmonary disease with acute exacerbation (HCC) Obstructive chronic bronchitis with exacerbation History of hemoptysis [facility]* Diagnosis Viral URI with cough Acute upper respiratory infections of unspecified site [facility] Diagnosis Chronic bilateral low back pain with bilateral sciatica [facility] Diagnosis Acute pain of right shoulder [facility]* Diagnosis 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, unspecified vessel or lesion type- Primary Uncomplicated asthma, unspecified asthma severity, unspecified whether persistent Chronic obstructive pulmonary disease with acute exacerbation (HCC) Obstructive chronic bronchitis with exacerbation [facility]* Diagnosis Bilateral leg cramps- Primary Encounter for immunization Need for other specified prophylactic vaccination against single bacterial disease Need for influenza vaccination Need for prophylactic vaccination and inoculation against influenza Chronic obstructive pulmonary disease with acute exacerbation (HCC) Obstructive chronic bronchitis with exacerbation Chronic obstructive pulmonary disease with acute exacerbation (HCC) Obstructive chronic bronchitis with exacerbation [facility] Diagnosis Chronic obstructive pulmonary disease with acute exacerbation (HCC) Obstructive chronic bronchitis with exacerbation [facility]* Diagnosis Kidney insufficiency- Primary Unspecified disorder of kidney and ureter documented in this encounter [facility] [facility] Diagnosis URI with cough and congestion- Primary [facility]* Diagnosis History of cigarette smoking- Primary Lung nodules Other nonspecific abnormal finding of lung field [facility] this [facility]* Diagnosis Hypotension, unspecified hypotension type- Primary Generalized abdominal pain Abdominal pain, generalized Dyspnea, unspecified type documented in this [facility]* Diagnosis Gastroesophageal reflux disease without esophagitis Esophageal reflux documented in this [facility]* Diagnosis Ventral hernia with gangrene- Primary Ventral hernia, unspecified, with gangrene Ventral hernia with gangrene Ventral hernia, unspecified, with gangrene [facility]* Diagnosis Chronic obstructive pulmonary disease, unspecified COPD type (HCC)- Primary Ventral hernia with gangrene Ventral hernia, unspecified, with gangrene documented [facility]* Diagnosis Chronic obstructive pulmonary disease, unspecified COPD type (HCC) Ventral hernia with gangrene Ventral hernia, unspecified, with gangrene documented in this [facility]* Diagnosis Chronic obstructive pulmonary disease, unspecified COPD type (HCC) Ventral hernia with gangrene Ventral hernia, unspecified, with gangrene [facility]* Diagnosis Stage 3 severe COPD by GOLD classification ([facility])- Primary MARGARITO (obstructive sleep apnea) Obstructive sleep apnea (adult) (pediatric) Former cigarette smoker Personal history of tobacco use, presenting hazards to health Post-nasal drip Postnasal drip Ventral hernia with gangrene Ventral hernia, unspecified, with gangrene documented in this encounter [facility] note* Diagnosis Pre-operative examination- Primary Preoperative examination, unspecified Primary hypertension Unspecified essential hypertension Hyperlipidemia, unspecified hyperlipidemia type 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, unspecified vessel or lesion type MARGARITO on CPAP Obstructive sleep apnea (adult) (pediatric) Chronic obstructive pulmonary disease with acute exacerbation ([facility]) Obstructive chronic bronchitis with exacerbation History of cigarette smoking Lung nodules Other nonspecific abnormal finding of lung field Gastroesophageal reflux disease without esophagitis Esophageal reflux Chronic deep vein thrombosis (DVT) of calf muscle vein of right lower extremity (HCC) Bilateral edema of lower extremity Edema Delusions ([facility]) Unspecified paranoid state Homelessness Lack of housing Obesity, Class I, BMI 30-34.9 Obesity, unspecified PVD (peripheral vascular disease) Peripheral vascular disease, unspecified Ventral hernia with gangrene Ventral hernia, unspecified, with gangrene * Assessment & Plan Note - Kacie Palma APRN.CNP - 07/26/2024 11:45 AM EDT Associated Problem(s): PVD (peripheral vascular disease) Assessment: iliac artery aneurysm 2.6cm on CT * Assessment & Plan Note - Kacie Palma APRN.CNP - 07/26/2024 11:44 AM EDT Associated Problem(s): Obesity, Class I, BMI 30-34.9 Assessment: Body mass index is 31.17 kg/m . * Assessment & Plan Note - Kacie Palma APRN.CNP - 07/26/2024 11:44 AM EDT Associated Problem(s): Homelessness Assessment: hx * Assessment & Plan Note - Kacie Palma APRN.CNP - 07/26/2024 11:44 AM EDT Associated Problem(s): Delusions (HCC) Assessment: hx, pt with very elaborate stories of past social/family hx * Assessment & Plan Note - Kacie Palma APRN.CNP - 07/26/2024 11:43 AM EDT Associated Problem(s): Bilateral edema of lower extremity Assessment: controlled on rx * Assessment & Plan Note - Kacie Palma APRN.CNP - 07/26/2024 11:42 AM EDT Associated Problem(s): Chronic deep vein thrombosis (DVT) of calf muscle vein of right lower extremity (HCC) Assessment: hx, tx with Xarelto, daily ASA currently * Assessment & Plan Note - Kacie Palma APRN.CNP - 07/26/2024 11:42 AM EDT Associated Problem(s): Gastroesophageal reflux disease without esophagitis Assessment: controlled on rx * Assessment & Plan Note - Kacie Palma APRN.CNP - 07/26/2024 8:51 AM EDT Associated Problem(s): Lung nodules Assessment: under surveillance, following pulmonary * Assessment & Plan Note - Kacie Palma APRN.CNP - 07/26/2024 8:41 AM EDT Associated Problem(s): History of cigarette smoking Assessment: former [id number] smoker quitting in 2020 * Assessment & Plan Note - Kacie Palma APRN.CNP - 07/26/2024 8:39 AM EDT Associated Problem(s): MARGARITO on CPAP Assessment: 05/30 hx homelessness no current PAP use, following pulmonary * Assessment & Plan Note - Kacie Palma APRN.CNP - 07/26/2024 8:38 AM EDT Associated Problem(s): 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 Images from the original note were not included. Assessment: hx stents, c/w daily ASA, statin, BB. PCP has been managing, hx homelessness 04/2020 Heart Cath Scanned into [employer] Echo Scanned into [employer] 01/06/202310/2022 Pharm/stress test CONCLUSIONS: 1. SPECT Perfusion Study: Normal. 2. There is no scintigraphic evidence for inducible ischemia. 3. No evidence of scarred myocardium. 4. Left ventricle is normal in size. The left ventricle systolic function is normal. 5. Right ventricle is normal in size. The right ventricle systolic function is normal. 6. This is a low risk scan. Gated Stress FBP LVEF % 71 08/16/2022 Ming Ballesteros MD ASSESSMENT/PLAN: 1. 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, unspecified vessel or lesion type - ICD9: 414.01, ICD10: I25.10 (primary diagnosis) His coronary artery disease appears clinically stable at this time as he has no complaints of angina or any anginal equivalents. Having said this he is very minimally active due to his severe shortness of breath from his COPD. Continue aspirin, beta-abran, DIMITRIS inhibitor, statin. Would recommend discontinuing Plavix at this time as he has fulfilled over 2 years of dual antiplatelet therapy. - ECG B/O W INTERP (MED OFFICE) 2. Encounter for other preprocedural examination - ICD9: V72.83, ICD10: Z01.818 He had stenting to his proximal left anterior descending artery and his proximal dominant left circumflex coronary artery. Since then he has had no complaints of chest pain or pressure, but he is notsignificantly active as he has severe shortness of breath on minimal exertion. Recommend further risk stratification with a nuclear medicine stress test. Those results are readily available, I will report back to his surgeon for the next step. - NM CARDIAC PERF STRESS/PHARM 3. Essential hypertension - ICD9: 401.9, ICD10: I10 - good control - Recommended regular aerobic exercise. - Recommend home blood pressure monitoring, to bring results in on next visit - Goal of BP <130/80 4. Mixed hyperlipidemia - ICD9: 272.2, ICD10: E78.2 - good control - Continue current medication. * Assessment & Plan Note - Kacie Palma APRN.CNP - 07/26/2024 8:28 AM EDT Associated Problem(s): Hyperlipidemia Assessment: c/w statin * Assessment & Plan Note - Kacie Palma APRN.CNP - 07/26/2024 8:28 AM EDT Associated Problem(s): Hypertension Assessment: controlled on rx Last 14 BP Last 14 Encounter BP Readings: Date: BP: 07/20/2024 128/58 07/20/2024 134/62 07/15/2024 116/70 05/31/2024 88/62 04/25/2024 82/60 04/14/2024 102/62 11/26/2023 100/64 11/11/2023 102/64 10/13/2023 100/62 10/11/2023 98/62 08/22/2023 118/78 07/30/2023 138/72 07/23/2023 116/73 07/17/2023 126/70 * Assessment & Plan Note - Kacie Palma APRN.CNP - 07/20/2024 12:54 PM EDT Associated Problem(s): COPD (chronic obstructive pulmonary disease) (HCC) Assessment: c/w inhaler usage, received pulmonary optimization below 07/20/2024 Dr. Escamilla, [facility] Assessment/Plan: 1. Preoperative pulmonary assessment -Patient is on maximal inhaled therapy -ARISCAT score 42 placing him at intermediate risk for postoperative pulmonary complications including pneumonia, atelectasis, bronchospasm -[place]ullah respiratory failure index 24 placing him at a 5% risk of postoperative respiratory failure -Continue Breztri -Perioperative therapy -Aggressive postoperative bronchopulmonary hygiene with flutter/Acapella device and Mucomyst 2. Severe COPD/GOLD stage 3 -Pulmonary function test shows severe obstruction with FEV1 of 40% -See #1 3. MARGARITO -Has history of severe sleep apnea previously on CPAP machine -Referral to sleep medicine -Recommend auto CPAP pre and postoperatively 4. Former cigarette smoker -Former smoker with sequelae of COPD -Continue abstinence -Pending updated lung cancer screening evaluation 5. Postnasal drip -Current mucus production likely related to his rhinorrhea with postnasal drip related to allergies -Restarted Singulair and recommend Flonase nasal spray [facility]* Diagnosis Pre-operative examination- Primary Preoperative examination, unspecified Primary hypertension Unspecified essential hypertension Hyperlipidemia, unspecified hyperlipidemia type 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, unspecified vessel or lesion type MARGARITO on CPAP Obstructive sleep apnea (adult) (pediatric) Chronic obstructive pulmonary disease with acute exacerbation (HCC) Obstructive chronic bronchitis with exacerbation History of cigarette smoking Lung nodules Other nonspecific abnormal finding of lung field Gastroesophageal reflux disease without esophagitis Esophageal reflux Chronic deep vein thrombosis (DVT) of calf muscle vein of right lower extremity (HCC) Bilateral edema of lower extremity Edema Delusions (HCC) Unspecified paranoid state Homelessness Lack of housing Obesity, Class I, BMI 30-34.9 Obesity, unspecified PVD (peripheral vascular disease) Peripheral vascular disease, unspecified Ventral hernia with gangrene- Primary Ventral hernia, unspecified, with gangrene documented in this [facility]* Diagnosis Pre-operative examination- Primary Preoperative examination, unspecified Primary hypertension Unspecified essential hypertension Hyperlipidemia, unspecified hyperlipidemia type 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, unspecified vessel or lesion type MARGARITO on CPAP Obstructive sleep apnea (adult) (pediatric) Chronic obstructive pulmonary disease with acute exacerbation (HCC) Obstructive chronic bronchitis with exacerbation History of cigarette smoking Lung nodules Other nonspecific abnormal finding of lung field Gastroesophageal reflux disease without esophagitis Esophageal reflux Chronic deep vein thrombosis (DVT) of calf muscle vein of right lower extremity (HCC) Bilateral edema of lower extremity Edema Delusions (HCC) Unspecified paranoid state Homelessness Lack of housing Obesity, Class I, BMI 30-34.9 Obesity, unspecified PVD (peripheral vascular disease) Peripheral vascular disease, unspecified MARGARITO (obstructive sleep apnea) Obstructive sleep apnea (adult) (pediatric) documented [facility]* Diagnosis Pre-operative examination- Primary Preoperative examination, unspecified Primary hypertension Unspecified essential hypertension Hyperlipidemia, unspecified hyperlipidemia type 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, unspecified vessel or lesion type MARGARITO on CPAP Obstructive sleep apnea (adult) (pediatric) Chronic obstructive pulmonary disease with acute exacerbation (HCC) Obstructive chronic bronchitis with exacerbation History of cigarette smoking Lung nodules Other nonspecific abnormal finding of lung field Gastroesophageal reflux disease without esophagitis Esophageal reflux Chronic deep vein thrombosis (DVT) of calf muscle vein of right lower extremity (HCC) Bilateral edema of lower extremity Edema Delusions (HCC) Unspecified paranoid state Homelessness Lack of housing Obesity, Class I, BMI 30-34.9 Obesity, unspecified PVD (peripheral vascular disease) Peripheral vascular disease, unspecified Upper abdominal pain- Primary Abdominal pain, other specified site 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, unspecified vessel or lesion type Primary hypertension Unspecified essential hypertension Acute cough Hyperlipidemia, unspecified hyperlipidemia type Constipation, unspecified constipation type Upper abdominal pain Abdominal pain, other specified site Acute cough documented in this [facility]* Diagnosis Pre-operative examination- Primary Preoperative examination, unspecified Primary hypertension Unspecified essential hypertension Hyperlipidemia, unspecified hyperlipidemia type 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, unspecified vessel or lesion type MARGARITO on CPAP Obstructive sleep apnea (adult) (pediatric) Chronic obstructive pulmonary disease with acute exacerbation (HCC) Obstructive chronic bronchitis with exacerbation History of cigarette smoking Lung nodules Other nonspecific abnormal finding of lung field Gastroesophageal reflux disease without esophagitis Esophageal reflux Chronic deep vein thrombosis (DVT) of calf muscle vein of right lower extremity (HCC) Bilateral edema of lower extremity Edema Delusions (HCC) Unspecified paranoid state Homelessness Lack of housing Obesity, Class I, BMI 30-34.9 Obesity, unspecified PVD (peripheral vascular disease) Peripheral vascular disease, unspecified Upper abdominal pain Abdominal pain, other specified site Acute cough documented [facility]* Diagnosis Pre-operative examination- Primary Preoperative examination, unspecified Primary hypertension Unspecified essential hypertension Hyperlipidemia, unspecified hyperlipidemia type 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, unspecified vessel or lesion type MARGARITO on CPAP Obstructive sleep apnea (adult) (pediatric) Chronic obstructive pulmonary disease with acute exacerbation (HCC) Obstructive chronic bronchitis with exacerbation History of cigarette smoking Lung nodules Other nonspecific abnormal finding of lung field Gastroesophageal reflux disease without esophagitis Esophageal reflux Chronic deep vein thrombosis (DVT) of calf muscle vein of right lower extremity (HCC) Bilateral edema of lower extremity Edema Delusions (HCC) Unspecified paranoid state Homelessness Lack of housing Obesity, Class I, BMI 30-34.9 Obesity, unspecified PVD (peripheral vascular disease) Peripheral vascular disease, unspecified Upper abdominal pain- Primary Abdominal pain, other specified site Chronic obstructive pulmonary disease, unspecified COPD type (HCC) Iliac artery aneurysm, left Aneurysm of iliac artery Primary hypertension Unspecified essential hypertension documented [facility]* Diagnosis Pre-operative examination- Primary Preoperative examination, unspecified Primary hypertension Unspecified essential hypertension Hyperlipidemia, unspecified hyperlipidemia type 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, unspecified vessel or lesion type MARGARITO on CPAP Obstructive sleep apnea (adult) (pediatric) Chronic obstructive pulmonary disease with acute exacerbation (HCC) Obstructive chronic bronchitis with exacerbation History of cigarette smoking Lung nodules Other nonspecific abnormal finding of lung field Gastroesophageal reflux disease without esophagitis Esophageal reflux Chronic deep vein thrombosis (DVT) of calf muscle vein of right lower extremity (HCC) Bilateral edema of lower extremity Edema Delusions (HCC) Unspecified paranoid state Homelessness Lack of housing Obesity, Class I, BMI 30-34.9 Obesity, unspecified PVD (peripheral vascular disease) Peripheral vascular disease, unspecified Chronic deep vein thrombosis (DVT) of calf muscle vein of right lower extremity (HCC)- Primary documented in this [facility]* Diagnosis Pre-operative examination- Primary Preoperative examination, unspecified Primary hypertension Unspecified essential hypertension Hyperlipidemia, unspecified hyperlipidemia type 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, unspecified vessel or lesion type MARGARITO on CPAP Obstructive sleep apnea (adult) (pediatric) Chronic obstructive pulmonary disease with acute exacerbation (HCC) Obstructive chronic bronchitis with exacerbation History of cigarette smoking Lung nodules Other nonspecific abnormal finding of lung field Gastroesophageal reflux disease without esophagitis Esophageal reflux Chronic deep vein thrombosis (DVT) of calf muscle vein of right lower extremity (HCC) Bilateral edema of lower extremity Edema Delusions (HCC) Unspecified paranoid state Homelessness Lack of housing Obesity, Class I, BMI 30-34.9 Obesity, unspecified PVD (peripheral vascular disease) Peripheral vascular disease, unspecified Kidney insufficiency- Primary Unspecified disorder of kidney and ureter documented in this [facility]* Diagnosis Pre-operative examination- Primary Preoperative examination, unspecified Primary hypertension Unspecified essential hypertension Hyperlipidemia, unspecified hyperlipidemia type 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, unspecified vessel or lesion type MARGARITO on CPAP Obstructive sleep apnea (adult) (pediatric) Chronic obstructive pulmonary disease with acute exacerbation (HCC) Obstructive chronic bronchitis with exacerbation History of cigarette smoking Lung nodules Other nonspecific abnormal finding of lung field Gastroesophageal reflux disease without esophagitis Esophageal reflux Chronic deep vein thrombosis (DVT) of calf muscle vein of right lower extremity (HCC) Bilateral edema of lower extremity Edema Delusions (HCC) Unspecified paranoid state Homelessness Lack of housing Obesity, Class I, BMI 30-34.9 Obesity, unspecified PVD (peripheral vascular disease) Peripheral vascular disease, unspecified Primary hypertension- Primary Unspecified essential hypertension Iliac artery aneurysm, left Aneurysm of iliac artery Chronic obstructive pulmonary disease, unspecified COPD type (HCC) documented in this [facility]* Diagnosis Pre-operative examination- Primary Preoperative examination, unspecified Primary hypertension Unspecified essential hypertension Hyperlipidemia, unspecified hyperlipidemia type 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, unspecified vessel or lesion type MARGARITO on CPAP Obstructive sleep apnea (adult) (pediatric) Chronic obstructive pulmonary disease with acute exacerbation (HCC) Obstructive chronic bronchitis with exacerbation History of cigarette smoking Lung nodules Other nonspecific abnormal finding of lung field Gastroesophageal reflux disease without esophagitis Esophageal reflux Chronic deep vein thrombosis (DVT) of calf muscle vein of right lower extremity (HCC) Bilateral edema of lower extremity Edema Delusions (HCC) Unspecified paranoid state Homelessness Lack of housing Obesity, Class I, BMI 30-34.9 Obesity, unspecified PVD (peripheral vascular disease) Peripheral vascular disease, unspecified Uncomplicated asthma, unspecified asthma severity, unspecified whether persistent (HCC) Chronic obstructive pulmonary disease with acute exacerbation (HCC) Obstructive chronic bronchitis with exacerbation 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, unspecified vessel or lesion type documented in this [facility]* Diagnosis Pre-operative examination- Primary Preoperative examination, unspecified Primary hypertension Unspecified essential hypertension Hyperlipidemia, unspecified hyperlipidemia type 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, unspecified vessel or lesion type MARGARITO on CPAP Obstructive sleep apnea (adult) (pediatric) Chronic obstructive pulmonary disease with acute exacerbation (HCC) Obstructive chronic bronchitis with exacerbation History of cigarette smoking Lung nodules Other nonspecific abnormal finding of lung field Gastroesophageal reflux disease without esophagitis Esophageal reflux Chronic deep vein thrombosis (DVT) of calf muscle vein of right lower extremity (HCC) Bilateral edema of lower extremity Edema Delusions (HCC) Unspecified paranoid state Homelessness Lack of housing Obesity, Class I, BMI 30-34.9 Obesity, unspecified PVD (peripheral vascular disease) Peripheral vascular disease, unspecified Symptomatic varicose veins of both lower extremities- Primary Varicose veins of lower extremities with other complications Iliac artery aneurysm, left Aneurysm of iliac artery 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 documented in this [facility]* Diagnosis Pre-operative examination- Primary Preoperative examination, unspecified Primary hypertension Unspecified essential hypertension Hyperlipidemia, unspecified hyperlipidemia type 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, unspecified vessel or lesion type MARGARITO on CPAP Obstructive sleep apnea (adult) (pediatric) Chronic obstructive pulmonary disease with acute exacerbation (HCC) Obstructive chronic bronchitis with exacerbation History of cigarette smoking Lung nodules Other nonspecific abnormal finding of lung field Gastroesophageal reflux disease without esophagitis Esophageal reflux Chronic deep vein thrombosis (DVT) of calf muscle vein of right lower extremity (HCC) Bilateral edema of lower extremity Edema Delusions (HCC) Unspecified paranoid state Homelessness Lack of housing Obesity, Class I, BMI 30-34.9 Obesity, unspecified PVD (peripheral vascular disease) Peripheral vascular disease, unspecified Symptomatic varicose veins, bilateral- Primary Symptomatic varicose veins of both lower extremities Varicose veins of lower extremities with other complications documented [facility] this [facility]* Diagnosis Pre-operative examination- Primary Preoperative examination, unspecified Primary hypertension Unspecified essential hypertension Hyperlipidemia, unspecified hyperlipidemia type 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, unspecified vessel or lesion type MARGARITO on CPAP Obstructive sleep apnea (adult) (pediatric) Chronic obstructive pulmonary disease with acute exacerbation (HCC) Obstructive chronic bronchitis with exacerbation History of cigarette smoking Lung nodules Other nonspecific abnormal finding of lung field Gastroesophageal reflux disease without esophagitis Esophageal reflux Chronic deep vein thrombosis (DVT) of calf muscle vein of right lower extremity (HCC) Bilateral edema of lower extremity Edema Delusions (HCC) Unspecified paranoid state Homelessness Lack of housing Obesity, Class I, BMI 30-34.9 Obesity, unspecified PVD (peripheral vascular disease) Peripheral vascular disease, unspecified Bilateral edema of lower extremity Edema documented in this [facility]* Diagnosis Pre-operative examination- Primary Preoperative examination, unspecified Primary hypertension Unspecified essential hypertension Hyperlipidemia, unspecified hyperlipidemia type 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, unspecified vessel or lesion type MARGARITO on CPAP Obstructive sleep apnea (adult) (pediatric) Chronic obstructive pulmonary disease with acute exacerbation (HCC) Obstructive chronic bronchitis with exacerbation History of cigarette smoking Lung nodules Other nonspecific abnormal finding of lung field Gastroesophageal reflux disease without esophagitis Esophageal reflux Chronic deep vein thrombosis (DVT) of calf muscle vein of right lower extremity (HCC) Bilateral edema of lower extremity Edema Delusions (HCC) Unspecified paranoid state Homelessness Lack of housing Obesity, Class I, BMI 30-34.9 Obesity, unspecified PVD (peripheral vascular disease) Peripheral vascular disease, unspecified Varicose veins of right lower extremity with pain- Primary Varicose veins of lower extremities with other complications Varicose veins of right lower extremity with pain Varicose veins of lower extremities with other complications [facility] Attachments The following attachments cannot be sent through Care Everywhere. * Edema: Leg and Ankle (Spanish French) [facility] in [facility] Discharge instructions Additional Instructions Finish your antibiotic and steroids provided by your doctor. Continue inhaler treatments at home. May add humidifier vapor rubs to help with cough symptoms. Follow-up with your doctor return if any worsening symptoms.[facility] Work Phone: Hospital Discharge instructions Additional Instructions Your blood work shows no sign of kidney damage and normal blood volume and your urine shows no sign of infection indicating that your hematuria/blood in urine is most likely related to your Xarelto/blood thinner. Talk to your doctor about stopping this medication and return to the ER should you have any further concerns. [facility] Reason for referral (narrative)* Consultation (Routine) - Open Specialty Diagnoses / Procedures Referred By Thomas simmons Referred To Contact Family Medicine Diagnoses Bilateral lower extremity edema Zuleyma Motta MD [address] [place] [address] [facility] [address] [place] [address] Referral ID Status Reason Start Date Expiration Date Visits Re quested Visits Authorized [id number] Open 05/18/2021 06/18/2022 1 1 [facility] for referral (narrative)* Outpatient Procedure (Routine) - Pending Review Specialty Diagnoses / Procedures Referred By Thomas simmons Referred To Contact [facility] Diagnoses Special screening for malignant neoplasms, colon Procedures COLONOSCOPY SCREENING COLONOSCOPY FLX DX W/COLLJ SPEC WHEN Samir Painter MD [address] [place] [id number] [facility] [place] [address] [place] [address] Referral ID Status Reason Start Date Expiration Date Visits Requested Visits Authorized [id number] Pending Review Auto-Generat ed Referral 08/15/2022 08/16/2023 1 1 [facility] for referral (narrative)* Diagnostic Procedure Only (Routine) - Pending Review Specialty Diagnoses / Procedures Referred By Contac t Referred To Contact [facility] Diagnoses Encounter for other preprocedural examination Procedures NM CARDIAC PERF STRESS/PHARM MYOCARDIAL SPECT MULTIPLE STUDIES Ming Albarran MD [address] [place] [address] [facility] [address] [place] [address] Referral ID Status Reason Start Date Expiration Date Visits Requested Visits Authorized [id number] Pending Review Auto-Generat ed Referral 08/16/2022 09/15/2023 1 1 [facility] for referral (narrative)* Diagnostic Procedure Only (Routine) - Closed Specialty Diagnoses / Procedures Referred By Contac t Referred To Contact XR IMAGING Diagnoses Acute pain of right shoulder Procedures XR SHOULDER GENERAL 3V OR MORE AP/TRUE AP/OTHER RIGHT RADEX SHOULDER COMPLETE MINIMUM 2 VIEWS Samir Jordan MD [address] [place] [id number] [facility] Referral ID Status Reason Start Date Expiration Date V isits Requested Visits Authorized [id number] Closed Auto-Generate d Referral 09/05/2022 10/05/2023 1 1 [facility] for referral (narrative)* Diagnostic Procedure Only (Urgent) - Authorized Specialty Diagnoses / Procedures Referred By Contac t Referred To Contact US IMAGING Diagnoses Abdominal distension Elevated LFTs Procedures US ABDOMEN COMPLETE US ABDOMINAL REAL TIME W/IMAGE DOCUMENTATION Leah Marcus APRN.CNP [address] [place] [address] [facility] [place] [address] Referral ID Status Reason Start Date Expiration Date Visits Requested Visits Authorized [id number] Authorized Auto-Generat ed Referral 01/16/2023 02/15/2024 1 1 [facility] for referral (narrative)* Diagnostic Procedure Only (Routine) - Closed Specialty Diagnoses / Procedures Referred By Contac t Referred To Contact US IMAGING Diagnoses Subcutaneous nodule of back Procedures US SOFT TISSUE PELVIS US PELVIC NONOBSTETRIC IMAGE DCMTN LIMITED/F/U Leah Marcus APRN.ASSISTANT TODDLER TEACHER [address] [place] [address] [place] [address] Referral ID Status Reason Start Date Expiration Date V isits Requested Visits Authorized [id number] Closed Auto-Generate d Referral 09/17/2022 10/17/2023 1 1 [facility] for referral (narrative)* Diagnostic Procedure Only (Urgent) - Closed Specialty Diagnoses / Procedures Referred By Contac t Referred To Contact US IMAGING Diagnoses Abdominal distension Elevated LFTs Procedures US ABDOMEN COMPLETE US ABDOMINAL REAL TIME W/IMAGE DOCUMENTATION Leah Marcus APRN.ASSISTANT TODDLER TEACHER [address] [place] [address] [place] [address] Referral ID Status Reason Start Date Expiration Date V isits Requested Visits Authorized [id number] Closed Auto-Generate d Referral 01/16/2023 02/15/2024 1 1 [facility] for referral (narrative)* Diagnostic Procedure Only (Routine) - Denied Specialty Diagnoses / Procedures Referred By Contac t Referred To Contact [facility]LECULAR [facility] FUNCTIONAL [facility]AGING Diagnoses Encounter for other preprocedural examination Procedures NM CARDIAC PERF STRESS/PHARM MYOCARDIAL SPECT MULTIPLE STUDIES Ming Albarran MD [address] [place] [address] Molecular [facility] Functional [facility] [address] [place] [address] Referral ID Status Reason Start Date Expiration Date V isits Requested Visits Authorized [id number] Denied Auto-Generate d Referral 08/16/2022 09/15/2023 3 0 [facility] for referral (narrative)* Outpatient Procedure (Routine) - Authorized Specialty Diagnoses / Procedures Referred By Contac t Referred To Contact [facility] Diagnoses Pain in toes of both feet Procedures PVR ANK PRESS CARO VAS LAB NON-INVAS PHYSIOLOGIC STD EXTREMITY ART 2 LEVEL Samir Jordan MD [address] [place] [id number] [facility] [place] [address] [place] [address] Referral ID Status Reason Start Date Expiration Date Visits Requested Visits Authorized [id number] Authorized Auto-Generat ed Referral 06/26/2023 06/25/2024 1 1 [facility] for referral (narrative)* Diagnostic Procedure Only (Routine) - Closed Specialty Diagnoses / Procedures Referred By Contac t Referred To Contact XR IMAGING Diagnoses Chronic bilateral low back pain with bilateral sciatica Procedures XR LUMBAR GENERAL 3V AP/LAT/L5-S1 RADEX SPINE LUMBOSACRAL 2/3 VIEWS Leah Shaikh APRN.CNP [address] [place] [address] [place] [address] Referral ID Status Reason Start Date Expiration Date V isits Requested Visits Authorized [id number] Closed Auto-Generate d Referral 09/17/2022 10/17/2023 1 1 [facility] for referral (narrative)* Diagnostic Procedure Only (Routine) - Closed Specialty Diagnoses / Procedures Referred By Contac t Referred To Contact XR IMAGING Diagnoses Acute pain of right shoulder Procedures XR SHOULDER GENERAL 3V OR MORE AP/TRUE AP/OTHER RIGHT RADEX SHOULDER COMPLETE MINIMUM 2 VIEWS Samir Jordan MD [address] [place] [address] [place] [address] Referral ID Status Reason Start Date Expiration Date V isits Requested Visits Authorized [id number] Closed Auto-Generate d Referral 09/05/2022 10/05/2023 1 1 [facility] for referral (narrative)* Outpatient Procedure (Routine) - New Request Specialty Diagnoses / Procedures Referred By Contac t Referred To Contact [facility] Diagnoses Hypotension, unspecified hypotension type Generalized abdominal pain Procedures ECG COMPLETE ECG ROUTINE ECG W/LEAST 12 LDS W/I&R Samir Jordan MD [address] [place] [address] [facility] [place] [address] [place] [id number] Referral ID Status Reason Start Date Expiration Date Visits Requested Visits Authorized [id number] New Request Auto-Generat ed Referral 05/31/2024 05/31/2025 1 1 [facility] for visit Narrative* Diagnostic Procedure Only (Routine) - Denied Specialty Diagnoses / Procedures Referred By Contac t Referred To Contact [facility] Diagnoses Encounter for other preprocedural examination Procedures NM CARDIAC PERF STRESS/PHARM MYOCARDIAL SPECT MULTIPLE STUDIES Ming Albarran MD [address] [place] [address] [facility] [address] [place] [address] Referral ID Status Reason Start Date Expiration Date V isits Requested Visits Authorized [id number] Denied Auto-Generate d Referral 08/16/2022 09/15/2023 3 0 [facility] for visit Narrative* Diagnostic Procedure Only (Routine) - Closed Specialty Diagnoses / Procedures Referred By Contac t Referred To Contact XR IMAGING Diagnoses Chronic bilateral low back pain with bilateral sciatica Procedures XR LUMBAR GENERAL 3V AP/LAT/L5-S1 RADEX SPINE LUMBOSACRAL 2/3 VIEWS Leah Shaikh, 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 [address] [place] [address] [place] [address] Referral ID Status Reason Start Date Expiration Date V isits Requested Visits Authorized [id number] Closed Auto-Generate d Referral 09/17/2022 10/17/2023 [facility] Procedure Only (Routine) - Closed Specialty Diagnoses / Procedures Referred By Contac t Referred To Contact XR IMAGING Diagnoses Acute pain of right shoulder Procedures XR SHOULDER GENERAL 3V OR MORE AP/TRUE AP/OTHER RIGHT RADEX SHOULDER COMPLETE MINIMUM 2 VIEWS Samir Jordan MD [address] [place] [address] [place] [address] Referral ID Status Reason Start Date Expiration Date V isits Requested Visits Authorized [id number] Closed Auto-Generate d Referral 09/05/2022 10/05/2023 1 1 [facility] Assessments Diagnosis Low back pain Lumbago Diagnosis SOB (shortness of breath) - Primary Shortness of breath Cough Diagnosis Pain of upper abdomen - Prim jeanie Diagnosis NSTEMI (non-ST elevated myocardial infarction) (HCC)- Primary Acute myocardial infarction, subendocardial infarction, episode of care unspecified Chronic obstructive pulmonary disease, unspecified COPD type ([facility]) Tobacco abuse, in remission Personal history of tobacco use, presenting hazards to health 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 Please follow up with your family doctor or one of your choosing. You may find a provider through the [facility] Physician Referral Service by calling [phone] ([phone]) or by visiting [email or web address] Thank You for choosing [facility]! Cough: Care Instructions Your Care Instructions A cough is your body's response to something that bothers your throat or airways. Many things can cause a cough. You might cough because of a cold or the flu, bronchitis, or asthma. Smoking, postnasal drip, allergies, and stomach acid that backs up into your throat also can cause coughs. A cough is a symptom, not a disease. Most coughs stop when the cause, such as a cold, goes away. You can take a few steps at home to cough less and feel better. Follow-up care is a abrams part of your treatment and safety. Be sure to make and go to all appointments, and call your doctor if you are having problems. It's also a good idea to know your test resultsand keep a list of the medicines you take. How can you care for yourself at home? Drink lots of water and other fluids. This helps thin the mucus and soothes a dry or sore throat. Honey or lemon juice in hot water or tea may ease a dry cough. Take cough medicine as directed by your doctor. Prop up your head on pillows to help you breathe and ease a dry cough. Try cough drops to soothe a dry or sore throat. Cough drops don't stop a cough. Medicine-flavored cough drops are no better than candy-flavored drops or hard candy. Do not smoke. Avoid secondhand smoke. If you need help quitting, talk to your doctor about stop-smoking programs and medicines. These can increase your chances of quitting for good. When should you call for help? Call 911 anytime you think you may need emergency care. For example, call if: You have severe trouble breathing. Call your doctor now or seek immediate medical care if: You cough up blood. You have new or worse trouble breathing. You have a new or higher fever. You have a new rash. Watch closely for changes in your health, and be sure to contact your doctor if: You cough more deeply or more often, especially if you notice more mucus or a change in the color of your mucus. You have new symptoms, such as a sore throat, an earache, or sinus pain. You do not get better as expected. Where can you learn more? Log into your personal health record on [email or web address] and enter D279 in the Education box to learn more about Cough: Care Instructions. Current as of: September 22, 2015 Content Version: 11.2 6192-2441 [employer]. Care instructions adapted under license by your healthcare professional. If you have questions about a medical condition or this instruction, always ask your healthcare professional. [employer] disclaims any warranty or liability for your use of this information. Shortness of Breath: Care Instructions Your Care Instructions Shortness of breath has many causes. Sometimes conditions such as anxiety can lead to shortness of breath. Some people get mild shortness of breath when they exercise. Trouble breathing also can be asymptom of a serious problem, such as asthma, lung disease, emphysema, heart problems, and pneumonia. If your shortness of breath continues, you may need tests and treatment. Watch for any changes in your breathing and other symptoms. Follow-up care is a abrams part of your treatment and safety. Be sure to make and go to all appointments, and call your doctor if you are having problems. It s also a good idea to know your test resultsand keep a list of the medicines you take. How can you care for yourself at home? Do not smoke or allow others to smoke around you. If you need help quitting, talk to your doctor about stop-smoking programs and medicines. These can increase your chances of quitting for good. Get plenty of rest and sleep. Take your medicines exactly as prescribed. Call your doctor if you think you are having a problem with your medicine. Find healthy ways to deal with stress. Exercise daily. Get plenty of sleep. Eat regularly and well. When should you call for help? Call 911 anytime you think you may need emergency care. For example, call if: You have severe shortness of breath. You have symptoms of a heart attack. These may include: Chest pain or pressure, or a strange feeling in the chest. Sweating. Shortness of breath. Nausea or vomiting. Pain, pressure, or a strange feeling in the back, neck, jaw, or upper belly or in one or both shoulders or arms. Lightheadedness or sudden weakness. A fast or irregular heartbeat. After you call 911, the heading up machine operator may tell you to chew 1 adult-strength or 2 to 4 low-dose aspirin. Wait for an ambulance. Do not try to drive yourself. Call your doctor now or seek immediate medical care if: Your shortness of breath gets worse or you start to wheeze. Wheezing is a high- pitched sound when you breathe. You wake up at night out of breath or have to prop your head up on several pillows to breathe. You are short of breath after only light activity or while at rest. Watch closely for changes in your health, and be sure to contact your doctor if: You do not get better over the next 1 to 2 days. Where can you learn more? Log into your personal health record on [email or web address] and enter S780 in the Education box to learn more about Shortness of Breath: Care Instructions. Current as of: September 18, 2015 Content Version: 11.2 5405-4119 [employer]. Care instructions adapted under license by your healthcare professional. If you have questions about a medical condition or this instruction, always ask your healthcare professional. [employer] disclaims any warranty or liability for your use of this information. Learning About Fever What is a fever? A fever is a high body temperature. It's one way your body fights being sick. A fever shows that the body is responding to infection or other illnesses, both minor and severe. A fever is a symptom, not an illness by itself. A fever can be a sign that you are ill, but most fevers are not caused by a serious problem. You may have a fever with a minor illness, such as a cold. But sometimes a very serious infection may cause little or no fever. It is important to look at other symptoms, other conditions you have, and how you feel in general. In children, notice how they act and see what symptoms they complain of. What is a normal body temperature? A normal body temperature is about 98.6 F. Some people have a normal temperature that is a little higher or a little lower than this. Your temperature may be a little lower in the morning than it is later in the day. It may go up during hot weather or when you exercise, wear heavy clothes, or take a hot bath. Your temperature may also be different depending on how you take it. A temperature taken in the mouth (oral) or under the arm may be a little lower than your core temperature (rectal). What is a fever temperature? A core temperature of 100.4?F or above is considered a fever. What can cause a fever? A fever may be caused by: Infections. This is the most common cause of a fever. Examples of infections that can cause a feverinclude the flu, a kidney infection, or pneumonia. Some medicines. Severe trauma or injury, such as a heart attack, stroke, heatstroke, or jim. Other medical conditions, such as arthritis and some cancers. How can you treat a fever at home? Ask your doctor if you can take an gxjg-tcb-hxptwfg pain medicine, such as acetaminophen (Tylenol),ibuprofen (Advil, Motrin), or naproxen (Aleve). Be safe with medicines. Read and follow all instructions on the label. To prevent dehydration, drink plenty of fluids. Choose water and other caffeine- free clear liquids until you feel better. If you have kidney, heart, or liver disease and have to limit fluids, talk with your doctor before you increase the amount of fluids you drink. Follow-up care is a abrams part of your treatment and safety. Be sure to make and go to all appointments, and call your doctor if you are having problems. It's also a good idea to know your test resultsand keep a list of the medicines you take. Where can you learn more? Log into your personal health record on [email or web address] and enter G732 in the Education box to learn more about Learning About Fever. Current as of: September 22, 2015 Content Version: 11.2 0832-3120 [employer]. Care instructions adapted under license by your healthcare professional. If you have questions about a medical condition or this instruction, always ask your healthcare professional. [employer] disclaims any warranty or liability for your use of this information. in this encounter* Raciel Herring MD - 10/28/2017 Formatting of this note may be different from the original. Abdominal Pain: Care Instructions Your Care Instructions Abdominal pain has many possible causes. Some aren't serious and get better on their own in a few days. Others need more testing and treatment. If your pain continues or gets worse, you need to be rechecked and may need more tests to find out what is wrong. You may need surgery to correct the problem. Don't ignore new symptoms, such as fever, nausea and vomiting, urination problems, pain that gets worse, and dizziness. These may be signs of a more serious problem. Your doctor may have recommended a follow-up visit in the next 8 to 12 hours. If you are not getting better, you may need more tests or treatment. The doctor has checked you carefully, but problems can develop later. If you notice any problems ornew symptoms, get medical treatment right away. Follow-up care is a abrams part of your treatment and safety. Be sure to make and go to all appointments, and call your doctor if you are having problems. It's also a good idea to know your test resultsand keep a list of the medicines you take. How can you care for yourself at home? Rest until you feel better. To prevent dehydration, drink plenty of fluids, enough so that your urine is light yellow or clear like water. Choose water and other caffeine-free clear liquids until you feel better. If you have kidney, heart, or liver disease and have to limit fluids, talk with your doctor before you increase the amount of fluids you drink. If your stomach is upset, eat mild foods, such as rice, dry toast or crackers, bananas, and applesauce. Try eating several small meals instead of two or three large ones. Wait until 48 hours after all symptoms have gone away before you have spicy foods, alcohol, and drinks that contain caffeine. Do not eat foods that are high in fat. Avoid anti-inflammatory medicines such as aspirin, ibuprofen (Advil, Motrin), and naproxen (Aleve).These can cause stomach upset. Talk to your doctor if you take daily aspirin for another health problem. When should you call for help? Call 911 anytime you think you may need emergency care. For example, call if: ? You passed out (lost consciousness). ? You pass maroon or very bloody stools. ? You vomit blood or what looks like coffee grounds. ? You have new, severe belly pain. ?Call your doctor now or seek immediate medical care if: ? Your pain gets worse, especially if it becomes focused in one area of your belly. ? You have a new or higher fever. ? Your stools are black and look like tar, or they have streaks of blood. ? You have unexpected vaginal bleeding. ? You have symptoms of a urinary tract infection. These may include: Pain when you urinate. Urinating more often than usual. Blood in your urine. ? You are dizzy or lightheaded, or you feel like you may faint. ?Watch closely for changes in your health, and be sure to contact your doctor if: ? You are not getting better after 1 day (24 hours). Where can you learn more? Log into your personal health record on [email or web address] and enter E907 in the Education box to learn more about Abdominal Pain: Care Instructions. Current as of: March 17, 2017 Content Version: 11.6 7459-3851 [employer]. Care instructions adapted under license by your healthcare professional. If you have questions about a medical condition or this instruction, always ask your healthcare professional. [employer] disclaims any warranty or liability for your use of this information. Please follow up with your family doctor in 2 days for recheck. Return to ED in 24 hours for continued or worsening pain, uncontrolled vomiting, persistent fever above 101F or any other emergent concerns. in this encounter* Instructions* Pauline Kirby RN - 05/05/[address] Lm Myers (Cardiology) in [facility] [phone]. For cardiology apppointment close to where you live. Coronary Angioplasty: What to Expect at Home Your Recovery Coronary angioplasty is a procedure that is used to open a narrowed or blocked coronary artery. It may also be called a percutaneous coronary intervention (PCI). The doctor opened your narrowed or blocked artery by putting a thin tube, called a catheter, into your heart through a blood vessel. The catheter was inserted into the blood vessel in your groin or arm. Your groin or arm may have a bruise and feel sore for a day or two after the procedure. You can do light activities around the house. But don't do anything strenuous for several days. This care sheet gives you a general idea about how long it will take for you to recover. But each person recovers at a different pace. Follow the steps below to get better as quickly as possible. How can you care for yourself at home? Activity If the doctor gave you a sedative: ? For 24 hours, don't do anything that requires attention to detail, such as going to work, making important decisions, or signing any legal documents. It takes time for the medicine's effects to completely wear off. ? For your safety, do not drive or operate any machinery that could be dangerous. Wait until the medicine wears off and you can think clearly and react easily. Do not do strenuous exercise and do not lift, pull, or push anything heavy until your doctor says it is okay. This may be for a day or two. You can walk around the house and do light activity, such as cooking. If the catheter was placed in your groin, try not to walk up stairs for the first couple of days. If the catheter was placed in your arm near your wrist, do not bend your wrist deeply for the firstcouple of days. Be careful using your hand to get into and out of a chair or bed. Carry your stent identification card with you at all times. If your doctor recommends it, get more exercise. Walking is a good choice. Bit by bit, increase theamount you walk every day. Try for at least 30 minutes on most days of the week. Diet Drink plenty of fluids to help your body flush out the dye. If you have kidney, heart, or liver disease and have to limit fluids, talk with your doctor before you increase the amount of fluids you drink. Keep eating a heart-healthy diet that has lots of fruits, vegetables, and whole grains. If you havenot been eating this way, talk to your doctor. You also may want to talk to a dietitian. This expert can help you to learn about healthy foods and plan meals. Medicines Your doctor will tell you if and when you can restart your medicines. He or she will also give you instructions about taking any new medicines. If you take aspirin or some other blood thinner, ask your doctor if and when to start taking it again. Make sure that you understand exactly what your doctor wants you to do. Your doctor will prescribe blood-thinning medicines. You will likely take aspirin plus another antiplatelet, such as clopidogrel (Plavix). It is very important that you take these medicines exactly as directed. These medicines help keep the coronary artery open and reduce your risk of a heart attack. Call your doctor if you think you are having a problem with your medicine. Care of the catheter site For 1 or 2 days, keep a bandage over the spot where the catheter was inserted. The bandage probablywill fall off in this time. Put ice or a cold pack on the area for 10 to 20 minutes at a time to help with soreness or swelling. Put a thin cloth between the ice and your skin. You may shower 24 to 48 hours after the procedure, if your doctor okays it. Pat the incision dry. Do not soak the catheter site until it is healed. Don't take a bath for 1 week, or until your doctor tells you it is okay. Watch for bleeding from the site. A small amount of blood (up to the size of a quarter) on the bandage can be normal. If you are bleeding, lie down and press on the area for 15 minutes to try to make it stop. If the bleeding does not stop, call your doctor or seek immediate medical care. Follow-up care is a abrams part of your treatment and safety. Be sure to make and go to all appointments, and call your doctor if you are having problems. It's also a good idea to know your test resultsand keep a list of the medicines you take. When should you call for help? Call 911 anytime you think you may need emergency care. For example, call if: You passed out (lost consciousness). You have severe trouble breathing. You have sudden chest pain and shortness of breath, or you cough up blood. You have symptoms of a heart attack, such as: ? Chest pain or pressure. ? Sweating. ? Shortness of breath. ? Nausea or vomiting. ? Pain that spreads from the chest to the neck, jaw, or one or both shoulders or arms. ? Dizziness or lightheadedness. ? A fast or uneven pulse. After calling 911, chew 1 adult-strength aspirin. Wait for an ambulance. Do not try to drive yourself. You have been diagnosed with angina, and you have angina symptoms that do not go away with rest or are not getting better within 5 minutes after you take one dose of nitroglycerin. Call your doctor now or seek immediate medical care if: You are bleeding from the area where the catheter was put in your artery. You have a fast-growing, painful lump at the catheter site. You have signs of infection, such as: ? Increased pain, swelling, warmth, or redness. ? Red streaks leading from the catheter site. ? Pus draining from the catheter site. ? A fever. Your leg, arm, or hand is painful, looks blue, or feels cold, numb, or tingly. Watch closely for changes in your health, and be sure to contact your doctor if you have any problems. Where can you learn more? Log into your personal health record on https://[email or web address] and enter Q672 in the Education box to learn more about Coronary Angioplasty: What to Expect at Home. Current as of: December 27, 2019 Content Version: 12.7 [employer]. Care instructions adapted under license by your healthcare professional. If you have questions about a medical condition or this instruction, always ask your healthcare professional. [employer] disclaims any warranty or liability for your use of this information. Cardiac Rehabilitation: Care Instructions Your Care Instructions Cardiac rehabilitation is a program for people who have a heart problem, such as a heart attack, heart failure, or a heart valve disease. The program includes exercise, lifestyle changes, education, and emotional support. Cardiac rehab can help you improve the quality of your life through better overall health. It can help you lose weight and feel better about yourself. On your cardiac rehab team, you may have your doctor, a nurse specialist, a dietitian, and a physical therapist. They will design your cardiac rehab program specifically for you. You will learn how to reduce your risk for heart problems, how to manage stress, and how to eat a heart-healthy diet. Bythe end of the program, you will be ready to maintain a healthier lifestyle on your own. Follow-up care is a abrams part of your treatment and safety. Be sure to make and go to all appointments, and call your doctor if you are having problems. It's also a good idea to know your test resultsand keep a list of the medicines you take. How can you care for yourself at home? Take your medicines exactly as prescribed. Call your doctor if you think you are having a problem with your medicine. You will get more details on the specific medicines your doctor prescribes. Weigh yourself every day if your doctor tells you to. Watch for sudden weight gain. Weigh yourself on the same scale with the same amount of clothing at the same time of day. Plan your meals so that you are eating heart-healthy foods. ? Eat a variety of foods daily. Fresh fruits and vegetables and whole-grains are good choices. ? Limit your fat intake, especially saturated and trans fat. ? Limit salt (sodium). ? Increase fiber in your diet. ? Limit alcohol. Learn how to take your pulse so that you can track your heart rate during exercise. Always check with your doctor before you begin a new exercise program. Warm up before you exercise and cool down afterward for at least 15 minutes each. This will help your heart gradually prepare for and recover from exercise and avoid pushing your heart too hard. Stop exercising if you have any unusual discomfort, such as chest pain. Do not smoke. Smoking can make heart problems worse. If you need help quitting, talk to your doctorabout stop-smoking programs and medicines. These can increase your chances of quitting for good. When should you call for help? Call 911 anytime you think you may need emergency care. For example, call if: You have severe trouble breathing. You cough up pink, foamy mucus and you have trouble breathing. You have symptoms of a heart attack. These may include: ? Chest pain or pressure, or a strange feeling in the chest. ? Sweating. ? Shortness of breath. ? Nausea or vomiting. ? Pain, pressure, or a strange feeling in the back, neck, jaw, or upper belly or in one or both shoulders or arms. ? Lightheadedness or sudden weakness. ? A fast or irregular heartbeat. After you call 911, the heading up machine operator may tell you to chew 1 adult-strength or 2 to 4 low-dose aspirin. Wait for an ambulance. Do not try to drive yourself. You have angina symptoms (such as chest pain or pressure) that do not go away with rest or are not getting better within 5 minutes after you take a dose of nitroglycerin. You have symptoms of a stroke. These may include: ? Sudden numbness, tingling, weakness, or loss of movement in your face, arm, or leg, especially ononly one side of your body. ? Sudden vision changes. ? Sudden trouble speaking. ? Sudden confusion or trouble understanding simple statements. ? Sudden problems with walking or balance. ? A sudden, severe headache that is different from past headaches. You passed out (lost consciousness). Call your doctor now or seek immediate medical care if: You have new or increased shortness of breath. You are dizzy or lightheaded, or you feel like you may faint. You gain weight suddenly, such as more than 2 to 3 pounds in a day or 5 pounds in a week. (Your doctor may suggest a different range of weight gain.) You have increased swelling in your legs, ankles, or feet. Watch closely for changes in your health, and be sure to contact your doctor if you have any problems. Where can you learn more? Log into your personal health record on [email or web address] and enter D709 in the Education box to learn more about Cardiac Rehabilitation: Care Instructions. Current as of: December 27, 2019 Content Version: 12.7 [employer]. Care instructions adapted under license by your healthcare professional. If you have questions about a medical condition or this instruction, always ask your healthcare professional. [employer] disclaims any warranty or liability for your use of this information. documented in this encounter Summary Purpose Family History No Family History Records FoundNo Family History Records FoundNo Family History Records FoundNo Family History Records FoundNo Family History Records FoundNo Family History Records FoundNo Family History Records FoundNo Family History Records FoundNo Family History Records FoundNo Family History Records FoundNo Family History Records FoundNo Family History Records FoundNo Family History Records FoundNo Family History Records Found Advance Directives Documents on File Type Date Recorded Patient Cylinder Press Feeder Expl anation Advance Directives and Livin g Will 05/04/2020 6:02 PM Latest Code Status on File Code Status Date Activated Date Inactivated Comments Full Code 05/03/2020 10:40 PM 05/05/2020 5:24 PM Full Code 03/22/2015 7:59 AM 03/25/2015 1:47 PM Documents on File Type Date Recorded Patient Cylinder Press Feeder Expl anation Advance Directives and Livin g Will 05/04/2020 6:02 PM Latest Code Status on File Code Status Date Activated Date Inactivated Comments Full Code 05/03/2020 10:40 PM 05/05/2020 5:24 PM Full Code 03/22/2015 7:59 AM 03/25/2015 1:47 PM Documents on File Type Date Recorded Patient Cylinder Press Feeder Expl anation Advance Directives and Living Will Power of Dispatch Officer DNR Documentation Advance Directive Response Recorded Date/ Time Living Will No September 09, 2021 4 :06pm Power of Dispatch Officer No September 09, 2021 4:06pm Advance Directive Response Recorded Date/ Time Living Will No November 09, 2021 3:28pm Power of Dispatch Officer No November 09 3:28pm Advance Directive Response Recorded Date/ Time Living Will No November 09, 2021 5:39pm Power of Dispatch Officer No November 09 5:39pm Advance Directive Response Recorded Date/ Time Living Will No February 18 1:48pm Power of Dispatch Officer No February 18, 2022 1:48pm Advance Directive Response Recorded Date/ Time Living Will No April 12, 2 022 4:08pm Power of Dispatch Officer No April 12, 2022 4:08pm Advance Directive Response Recorded Date/ Time Living Will No June 15, 2 023 8:10pm Power of Dispatch Officer No June 15, 2022 8:10pm Advance Directive Response Recorded Date/ Time Living Will No November 30, 2022 8:21am Power of Dispatch Officer No November 30 8:21am Advance Directive Response Recorded Date/ Time Living Will No December 21 9:47pm Power of Dispatch Officer No December 21, 2 023 9:47pm Advance Directive Response Recorded Date/ Time Living Will No December 22 2:52am Power of Dispatch Officer No December 22, 2 023 2:52am Advance Directive Response Recorded Date/ Time Living Will No February 09 1:41pm Power of Dispatch Officer No February 09, 2023 1:41pm Advance Directive Response Recorded Date/ Time Living Will No June 15, 2 024 2:22am Power of Dispatch Officer No June 15, 2023 2:22am Advance Directive Response Recorded Date/ Time Living Will No July 26, 2023 11:02pm Power of Dispatch Officer No July 25 11:02pm Reason for Referral Status Reason Specialty Diagnoses / Procedures Referred By Contact Referred To Contact Authorized Cardiac Rehabilitation Diagnoses NSTEMI (non-ST elevated myocardial infarction) (HCC) Coronary artery disease involving pechanga coronary artery of pechanga heart, angina presence unspecified Dell Esposito DO [address] [place] [address] Specialty Diagnoses / Procedures Referred By Thomas [place] [address] [place] [id number] Referral ID Status Reason Start Date Expiration Date Visits Re quested Visits Authorized [id number] Closed 1 1 Specialty Diagnoses / Procedures Referred By Thomas t Referred To Contact General Surgery Diagnoses Umbilical hernia without obstruction and without gangrene Procedures CONSULT TO GENERAL SURGERY OFFICE/OUTPATIENT [facility] 60-74 MINUTES Samir Jordan MD [address] [place] [address] Referral ID Status Reason Start Date Expiration Date Visits Requested Visits Authorized [id number] Authorized PCP Requested Referral 06/28/2022 06/28/2023 1 1 Specialty Diagnoses / Procedures Referred By Contac t Referred To Contact CT IMAGING Diagnoses Umbilical hernia without obstruction and without gangrene Ventral hernia with gangrene Procedures CT ABD/PEL W IVCON CT ABD & PELVIS W/CONTRAST Michelle Castaneda MD [address] [place] [address] Ct Imaging Referral ID Status Reason Start Date Expiration Date V isits Requested Visits Authorized [id number] Open Auto-Generate d Referral 07/02/2022 08/01/2023 1 1 Specialty Diagnoses / Procedures Referred By Contac t Referred To Contact Diagnoses Chronic bronchitis, unspecified chronic bronchitis type (HCC) Iggy Darden, 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 [address] [place] [address] Referral ID Status Reason Start Date Expiration Date Visits Re quested Visits Authorized [id number] Closed 1 1 Specialty Diagnoses / Procedures Referred By Contac t Referred To Contact Diagnoses Former cigarette smoker Procedures CONSULT LUNG CANCER SCREENING CLINIC Calli Desir PA-C [address] [place] [address] Referral ID Status Reason Start Date Expiration Date Visits Requested Visits Authorized [id number] Ref Not Required PCP Requested Referral 10/14/2022 01/12/2023 1 1 Specialty Diagnoses / Procedures Referred By Contac t Referred To Contact CT IMAGING Diagnoses Former cigarette smoker Encounter for screening for lung cancer Procedures CT LUNG SCREEN WO IVCON COMPUTED TOMOGRAPHY THORAX LW DOSE LNG CA Eliana Morales, 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 [address] [place] [address] Ct Imaging Referral ID Status Reason Start Date Expiration Date Visits Requested Visits Authorized [id number] Authorized Auto-Generat ed Referral 10/22/2022 11/21/2023 1 1 Specialty Diagnoses / Procedures Referred By Contac t Referred To Contact CT IMAGING Diagnoses Umbilical hernia without obstruction and without gangrene Ventral hernia with gangrene Procedures CT ABD/PEL W IVCON CT ABD & PELVIS W/CONTRAST Michelle Castaneda MD [address] [facility] [address] [place] [address] Referral ID Status Reason Start Date Expiration Date V isits Requested Visits Authorized [id number] Closed Auto-Generat ed Referral Patient Cleared - Admin/Chairm an/Director advise to proceed or did not respond 07/03/2022 08/02/2022 1 1 Specialty Diagnoses / Procedures Referred By Contac t Referred To Contact CT IMAGING Diagnoses Former cigarette smoker Encounter for screening for lung cancer Procedures CT LUNG SCREEN WO IVCON COMPUTED TOMOGRAPHY THORAX LW DOSE LNG CA SCR Eliana Bragg, WILLIAM.ASSISTANT TODDLER TEACHER [address] [place] [address] [place] [address] Referral ID Status Reason Start Date Expiration Date V isits Requested Visits Authorized [id number] Closed Auto-Generate d Referral 10/22/2022 11/21/2023 1 1 Specialty Diagnoses / Procedures Referred By Contac t Referred To Contact CT IMAGING Diagnoses History of cigarette smoking Lung nodules Procedures CT LUNG SCREEN WO IVCON COMPUTED TOMOGRAPHY THORAX LW DOSE LNG CA SCR Isabella Hardy [address] [facility] [place] [address] [place] [address] Referral ID Status Reason Start Date Expiration Date Visits Requested Visits Authorized [id number] New Request Auto-Generat ed Referral 04/30/2024 05/30/2025 1 1 Hospital Course * Beatrice Dent MD - 05/05/2020 11:30 AM EST [facility] DISCHARGE SUMMARY Shawna Salamanca Admitted: 05/03/2020 Discharge Date: 05/05/20 PCP Handoff Recommended Outpatient Testing: Results Pending At Discharge: Clinical Summary Shawna Jo is a 54 y.o. male patient of Shawna Rodriguez MD who has PMHx asthma, COPD, chronic back pain who presented to [facility] as a direct admit from [facility] ED with exertional chest pain for the past week who presents with NSTEMI troponin 932. NSTEMI (non-ST elevated myocardial infarction) (HCC) Ed ekg x2 per my review: NSR w/o JEET or STD or TWA Trop (HS) 932 at 4pm at [facility] ED--293--340 BUN/Cr: 17/0.9 H/H: 15/44.9--14.1/44 Given full dose Asa and nitroglycerin paste prior to transfer A1c 5.7, TSH 1.91 Appreciate cardiology input S/p LHC 05/04/2020:ARNOLD to LAD and Circ Discharged on aspirin, Imdur, Brilinta, Lipitor, Lopressor, and lisinopril Wheezing COPD/asthma Quit smoking 7 years ago Home regimen: Atrovent and Dulera Will resume formulary equivalent of Dulera As needed albuterol for shortness of breath Polysubstance abuse Urine drug screen positive for opiates Patient claims that his mother has been treated with LSD and drugs while he is sleeping. And claimshe does not wake up during the injection Discharge meds Medication List START taking these medications aspirin 81 MG EC tablet Take 1 (one) tablet (81 mg total) by mouth daily Start: 05/06/20. Start taking on: May 06, 2020 atorvastatin 80 MG tablet Commonly known as: LIPITOR Take 1 (one) tablet (80 mg total) by mouth nightly . isosorbide mononitrate 30 MG 24 hr tablet Commonly known as: IMDUR Take 1 (one) tablet (30 mg total) by mouth daily . lisinopriL 5 MG tablet Commonly known as: PRINIVIL,ZESTRIL Take 1 (one) tablet (5 mg total) by mouth daily with lunch . metoprolol tartrate 25 MG tablet Commonly known as: LOPRESSOR Take 1 (one) tablet (25 mg total) by mouth 2 (two) times a day . ticagrelor 90 mg Tab tablet Commonly known as: BriLINTA Take 1 (one) tablet (90 mg total) by mouth 2 (two) times a day . tiotropium bromide 2.5 mcg/actuation Mist Commonly known as: SPIRIVA RESPIMAT Inhale 1 (one) puff daily Start: 05/06/20. Start taking on: May 06, 2020 CONTINUE taking these medications albuterol 90 mcg/actuation inhaler Inhale 2 (two) puffs every 6 (six) hours as needed for wheezing . STOP taking these medications azithromycin 5 day dose pack Commonly known as: Z-JESUS benzonatate 200 MG capsule Commonly known as: TESSALON HYDROcodone-acetaminophen 5-325 mg per tablet Commonly known as: NORCO ipratropium 17 mcg/actuation inhaler Commonly known as: ATROVENT HFA pantoprazole 40 MG tablet Commonly known as: PROTONIX Where to Get Your Medications These medications were sent to [facility] [address] [place] [id number] albuterol 90 mcg/actuation inhaler aspirin 81 MG EC tablet atorvastatin 80 MG tablet isosorbide mononitrate 30 MG 24 hr tablet lisinopriL 5 MG tablet metoprolol tartrate 25 MG tablet ticagrelor 90 mg Tab tablet tiotropium bromide 2.5 mcg/actuation Mist Physician(s) Follow Up: [facility] [address] [place] [address] [address] [facility] [address] Follow up FACILITY WILL NOTIFY PATIENT OF FUTURE APPOINTMENT [facility] [address] [facility] [address] Follow up FACILITY WILL CONTACT PATIENT FOR FUTURE APPOINTMENT Condition at Discharge: stable Disposition: Home On day of discharge, I performed a final bedside evaluation including a physical exam. I reviewed discharge recommendations with the patient in person. Patient instructions, including activity, were given to the patient/family at discharge. Time spent on discharge: > 30 minutes Completed by: Beatrice Dent on 05/05/20, 11:30 AM documented in this encounter History of Present Illness * Pauline Kirby RN - 05/05/2020 11:53 AM EST Cardiac rehab education complete. Discussed with the patient that his physician has referred him toour outpatient Phase II Cardiac Rehabilitation Program. Patient is from [place], [place] and closest cardiac rehab program is at [facility]. A Cardiac Rehabilitation patient portal representative will contact patient . Copy of referral and [facility] Cardiac Rehab brochure provided to patient. Benefits of cardiac rehab and risk factors/ lifestyle modifications covered in the program reviewed. All questions answered. The Cardiac Rehabilitation Program will be provided the patient's referral information, pertinent patient details and history with patient's verbal consent. Medications reviewed with emphasis on dual antiplatelet therapy with Brilinta 90 mg bid and Aspirin 81 mg daily. Communicated with Oralia Pate Clinical Admissions Manager who states the medicine is covered under patient's insurance. Patient is unhappy in his living situation. Oralia also notified. Patient denies smoking but states he chews tobacco and he is encouraged to quit.He says he does not do drugs but has suspicion that different people may be giving him drugs when he sleeps? After Your Cardiac Intervention video watched and all questions answered. Patient given appointment of May 11 at 11:00am with Dr Jhon Hanson. Phone number for Dr Hanson [phone] in case patient needs to change appointment.Appointment added to AVS. * Brian Euceda DO - 05/05/2020 11:34 AM EST DAILY PROGRESS NOTE Cardiology Patient Name: Shawna Jo MR #: [id number] Assessment/Plan: I personally performed a [id number] diagnostic evaluation on this patient within 24 hours of the Resident's evaluation. I agree with the care plan documented by the Resident with the following additions/comments. Assessment/Plan: 1. NSTEMI 2. CAD 3. S/p percutaneous coronary intervention 4. Essential hypertension 5. Mixed hyperlipidemia 6. COPD 7. Tobacco abuse Plan: 1. OK for discharge today 2. He lives far from [facility] hospital and will have to follow his care closer to home 3. We have called in Rx for his Brilinta for a 1 year Rx 4. High dose high intensity statin therapy 5. Aggressive risk factor modification 6. Cardiology will sign off Brian Euceda D.O. NSTEMI CAD, New (S/p ARNOLD LAD and Cx) HTN HLD COPD Hx Tobacco Abuse Presented with chest pain and elevated Troponin up to 293-->340 [facility] performed 05/04 with ARNOLD placed in LAD and Cx Chest pain has resolved LDL 120 EF 50% Plan: -patient doing well, ok for discharge today from cardiology standpoint -continue ASA and Brillinta for atleast 12 months, Rx sent to pharmacy ([facility]) -continue GDMT: Lipitor 80 daily, Lopressor 25 BID, Lisinopril 5 daily -patient wishes to establish with professor of psychology near [facility], working to help facilitate process -recommend cardiac rehab Subjective: Patient seen and examined he denies any complaints and states that he feels well today without chest pain, shortness of breath, nausea, vomiting, palpitations. ROS: The following system(s) were reviewed and negative. Pertinent positive and negative findings are noted in the HPI. [x] Const [] Eyes [x] ENT [x] Resp [x] CV [x] GI [x] [x] Neuro [x] Musc [x] Skin [x] Psych [] Endo [x] Allergy [] Heme/Lymph Objective: Vital Signs: Temp: [97.4 F (36.3 C)-98.9 F (37.2 C)] 98 F (36.7 C) Heart Rate: [57-79] 61 Resp: [16] 16 BP: (122-166)/(68-108) 143/82 GENERAL: AAOx3 in NAD HEAD: Normocephalic, Atraumatic NECK: No adenopathy or thyromegaly CV: RRR, no murmur, rubs, or gallops. No JVD. No Edema RESP: Clear, no rales, rhonchi, wheezes or increase in respiratory effort, no use of acessory muscles MUSC: Normal ROM without deformity SKIN: Warm and dry. No rashes. EXT: No clubbing cyanosis or edema. 2+ peripheral pulses b/l PT/DP and femoral area PSYCH: Mood and affect are appropriate. Cooperative. Librado Grady DO * Eunice Villagomez RN - 05/04/2020 6:40 PM EST This RN removed 2mL air from TR Band at this time (2mL air remaining). Site c/d/i, no ecchymosis orhematoma noted. * Eunice Villagomez RN - 05/04/2020 6:10 PM EST This RN removed 2mL air from TR band at this time per protocol. * Beatrice Dent MD - 05/04/2020 11:40 AM EST [facility] DAILY PROGRESS NOTE Assessment and Plan Shawna Jo is a 54 y.o. male patient of Shawna Rodriguez MD who has PMHx asthma, COPD, chronic back pain who presented to [facility] as a direct admit from [facility] ED with exertional chest pain for the past week who presents with NSTEMI troponin 932. NSTEMI (non-ST elevated myocardial infarction) (HCC) Ed ekg x2 per my review: NSR w/o JEET or STD or TWA Trop (HS) 932 at 4pm at [place] ED--293--340 BUN/Cr: 17/0.9 H/H: 15/44.9--14.1/44 Given full dose Asa and nitroglycerin paste prior to transfer Continue Heparin gtt, ASA, Lipitor A1c 5.7, TSH 1.91 Consult cardiology-- C today Wheezing COPD/asthma Quit smoking 7 years ago Home regimen: Atrovent and Dulera Will resume formulary equivalent of Dulera As needed albuterol for shortness of breath Family Contact Information: Code Status: Full Code Quality Measures DVT Prophylaxis: Heparin gtt Lim Catheter: NA Disposition Discharge Location: Home Estimated Discharge Date: Tomorrow Outpatient Testing: Subjective Patient seen and examined on rounds. Continues to complain of mild chest discomfort for about 10 inseverity. No diaphoresis or shortness of breath. Nonradiating. Review of Systems All systems have been reviewed and are negative except as noted in HPI or below Objective BP 116/76 (BP Location: Left arm, Patient Position: Lying) Pulse (!) 58 Temp 98.2 F (36.8 C) (Oral) Resp 16 Ht 5' 8 Wt 83.4 kg (183 lb 13.8 oz) SpO2 94% BMI 27.96 kg/m Physical Examination General Appearance: alert, well appearing, and in no acute distress HEENT: Head- normocephalic; Eyes- PERRLA, EOMI; Ears- external auditory canals clear, hearing intact; Nose- no nasal discharge; Throat- oropharynx normal Cardiovascular: regular rate and rhythm; normal S1, S2; no murmurs, rubs, clicks or gallops; no peripheral edema Respiratory: lungs clear to auscultation; without wheezes, rales or rhonchi Abdomen: soft, non-tender, non-distended; positive bowel sounds Neurological: alert, oriented x 3, normal speech; no focal findings or movement disorder noted Musculoskeletal: no significant deformity or tenderness to palpation Skin: normal coloration, texture and turgor; no lesions or eruptions Psych: normal mood and affect Results/Medications Reviewed 05/04/20 11:40 AM Laboratory, Radiology, Cardiology, Medications and Transcriptions * Eunice Villagomez RN - 05/04/2020 6:55 AM EST This RN removed 2mL air from TR Band, TR band removed per protocol. No ecchymosis or hematoma noted. This RN applied pressure dressing to site. * Eunice Villagomez RN - 05/04/2020 6:25 AM EST This RN removed 2mL air from TR Band at this time. (4mL air in TR band at this time). documented in this encounter Chief Complaint and Reason for Visit Chief Complaint COVID SX Chief Complaint COVID SX PCR COVID TEST/SYMPTOMATIC POST-OP PAIN POST-OP PAIN Reason for Visit Encounter for sergey viera testing for COVID-19 virus Shingles Declining functional status Post-op pain Chief Complaint COVID SX PCR COVID TEST/SYMPTOMATIC POST-OP PAIN POST-OP PAIN POST-OP PAIN POST-OP PAIN POST-OP PAIN POST-OP PAIN Reason for Visit Encounter for sergey viera testing for COVID-19 virus Shingles Constipation Declining functional status Lumbar stenosis Post-op pain Chief Complaint POST-OP PAIN POST-OP PAIN POST-OP PAIN POST-OP PAIN POST-OP PAIN POST-OP PAIN SOB, WEAKNESS, DIZZINESS Reason for Visit Constipation Chief Complaint SOB, WEAKNESS, DIZZI NESS SOB, WEAKNESS, DIZZINESS cough, SOB, fever Chief Complaint SOB, WEAKNESS, DIZZI NESS SOB, WEAKNESS, DIZZINESS cough, SOB, fever RECTAL BLEEDING Chief Complaint cough, SOB, fever RECTAL BLEEDING Chief Complaint RIGHT SHOULDER COUGH Chief Complaint RIGHT SHOULDER COUGH CHF Reason for Visit Bilateral lower extr emity edema Delusions Exertional dyspnea Homelessness Hypokalemia Hypoxia Chief Complaint RIGHT SHOULDER COUGH Congestive heart failure HYPOXIA AND EDEMA HYPOXIA AND EDEMA Reason for Visit Bilateral lower extr emity edema Delusions Exertional dyspnea Homelessness Hypokalemia Hypoxia Chief Complaint COUGH Congestive heart failure HYPOXIA AND EDEMA HYPOXIA AND EDEMA HYPOXIA AND EDEMA HYPOXIA AND EDEMA back pain Reason for Visit Delusions Exertional dyspnea Hypoxia Bilateral lower extremity edema Hypokalemia Chief Complaint sob Chief Complaint sob HEMATURIA Medications Administered Section Inactive Administered Medications - up to 3 most recent administrations Medication Order MAR Action Action Date Dose Rate Site keTORolac 60 mg injection (Toradol) 60 mg, INTRAMUSCULAR, ONCE, 1 dose, On Anastasiia 09/05/22 at 1930, Ketorolac (Toradol) is indicated for the short-term (up to 5 days) management of moderately severe acute pain. Continuation of ketorolac (Toradol) beyond 5 days increases the risk of developing serious adverse events. Please verify the duration of therapy for ketorolac (Toradol)., If ordered PRN for pain, patient/guardian may elect to receive this medication for higher pain levels INSTEAD of the opioid, if preferred: Yes Given 09/05/2022 7:32 PM EDT 60 mg Deltoid, Left Additional Source Comments ED Procedure Note - Delores Thomas MD - 04/27/2017 3:16 PM LESLYE Attestation Note - Delores Thomas MD - 04/27/2017 1:56 PM LESLYE Notes - Dionna Esquivel RN - 04/27/2017 11:32 AM EST Miscellaneous Notes (unrecog nized section and content) Associated Order(s): ECG 12-LEAD EKG 12-lead Date/Time: 04/27/2017 11:35 AM Performed by: DELORES THOMAS Authorized by: FILIBERTO FINLEY Interpreted by ED attending physician Comparison: not compared with previous ECG Rhythm: sinus rhythm BPM: 61 Conduction: conduction normal ST Segments: ST segments normal T Inversion: V1 Clinical impression: non-specific ECG I personally interviewed the patient. I personally examined the patient. I discussed the patient with INSTRUCTOR OF EDUCATION/PA. I agree with the INSTRUCTOR OF EDUCATION/PA treatment plan. I agree with the INSTRUCTOR OF EDUCATION/PA plan of care. I agree with the INSTRUCTOR OF EDUCATION/PA dispo as documented. The patient has been informed that they may have pre-hypertension or hypertension based on a blood pressure reading in the Emergency Department. I recommend that the patient call the primary care provider listed on their discharge instructions or a physician of their choice as soon as possible to arrange follow-up in the next 4 weeks for further evaluation of possible pre-hypertension or hypertension. . A 51-year-old male with history of asthma and previous smoker presents complaining of shortness of breath and cough for 2 days. Patient states he is a productive cough but sometimes clear, yellow, or brown. He states he will get an intermittent sharp chest pain across his chest that lasts for seconds. Nothing specific brings it on. It goes away on its own. He states that he will have episodes of posttussive emesis. He states he has had fever and chills. He last had fever yesterday. He states he had similar symptoms when he had pneumonia. Patient also states he has been getting some sores in his nose. He was having rhinorrhea which has improved. He denies sore throat, ear pain, nausea, diarrhea, leg swelling, sick contacts. On exam he was mildly hypertensive. Rest of vital signs within normal limits. Patient no acute distress. Heart regular rate and rhythm. Lungs are slightly diminished. No wheezing, rhonchi, or rails. Patient speaking in full sentences with no respiratory distress. Inside his bilateral nares the skin is raw. No active bleeding. Abdomen soft nontender. No lower extremity edema. EKG is normal sinus rhythm. Chest x-ray no acute process. Lab work unremarkable. Influenza negative. Patient was given nebulizer treatments with improvement of shortness of breath. I believe his chest pain to be more related to acute bronchitis and not ACS in nature. Patient is low risk for ACS. Patient will be treated for acute bronchitis. Shawna Prajapati has a calculated HeartScore between 0-3. His risk of major adverse cardiac events (MACE) in the next 6 weeks is approximately 2.5% or low risk. Delores Thomas MD 04/27/17 Formatting of this note may be different from the original. ED PROVIDER NOTE [facility] EMERGENCY DEPARTMENT NAME: Shawna Prajapati AGE: 51 y.o. : 1965 VISIT DATE: 04/27/2017 CSN: [id number] PCP: Shawna Rodriguez MD Chief Complaint Patient presents with Cough HPI This is a 51-year-old male patient that presents emergency room complaint of having shortness of breath and cough for the past couple days. Patient states is coughing up whitish yellow brown sputum. Patient denies any chills he states having some fevers. Patient denies taking oral temperature. Patient states having sharp chest pain that is fleeting and intermittent denies any chest pain currently. She rates the pain a 4 out of 10. Patient states having nausea. Patient denies any problems with bowel or bladder. He has had pneumonia in the past and these symptoms are similar to that. Patient denies any cardiac history. Patient past medical history pneumonia, asthma, back pain and sinus disease. Patient states just quit smoking back in May. Denies any drug or alcohol use at this time. Patient vital signs on arrival 144/83 pulse 62 respiratory 16 temperature 97.5 and he is 99% room Past Medical History: Diagnosis Date Asthma Back pain Pneumonia Sinus disease Past Surgical History: Procedure Laterality Date HERNIA REPAIR SKIN CANCER EXCISION History reviewed. No pertinent family history. Social History Social History Marital status: Spouse name: N/A Number of children: N/A Years of education: N/A Occupational History Not on file. Social History Main Topics Smoking status: Former Smoker Packs/day: 1.00 Years: 33.00 Types: Cigarettes Quit date: 05/2016 Smokeless tobacco: Current User Types: Chew Alcohol use No Drug use: No Sexual activity: Not on file Other Topics Concern Not on file Social History Narrative No narrative on file Previous Medications ALBUTEROL 90 MCG/ACTUATION INHALER Inhale 2 puffs every 6 (six) hours as needed for wheezing. HYDROCODONE-ACETAMINOPHEN (NORCO) 5-325 MG PER TABLET Take 1 tablet by mouth every 6 (six) hours as needed for pain. IPRATROPIUM (ATROVENT HFA) 17 MCG/ACTUATION INHALER Inhale 2 puffs 4 (four) times a day. No Known Allergies Review of Systems Constitutional: Positive for fever (feels feverish). Negative for appetite change, chills and fatigue. HENT: Negative. Negative for sore throat and trouble swallowing. Eyes: Negative for photophobia and visual disturbance. Respiratory: Positive for cough (states has a productive couhg) and shortness of breath (feels sob for 2 days). Negative for chest tightness. Cardiovascular: Positive for chest pain (states having mid sternal cp sharp). Negative for palpitations and leg swelling. Gastrointestinal: Negative for abdominal pain, blood in stool, constipation, diarrhea, nausea (feels nauseated) and vomiting. Endocrine: Negative. Genitourinary: Negative for flank pain, frequency, hematuria, testicular pain and urgency. Musculoskeletal: Negative for neck pain and neck stiffness. Skin: Negative for rash. Allergic/Immunologic: Negative for immunocompromised state. Neurological: Negative for dizziness, weakness, light-headedness, numbness and headaches. Psychiatric/Behavioral: Negative. All other systems reviewed and are negative. Positives and pertinent negatives as per HPI. All other systems were reviewed and are negative. Patient Vitals for the past 24 hrs: BP Temp Temp src Pulse Resp SpO2 04/27/17 1427 - - - - - 93 % 04/27/17 1425 107/71 - - - - - 04/27/17 1321 128/84 - - (!) 59 16 99 % 04/27/17 1135 (!) 144/83 97.5 ?F (36.4 ?C) Oral 62 16 99 % Physical Exam Constitutional: He is oriented to person, place, and time. He appears well- developed and well-nourished. HENT: Head: Normocephalic and atraumatic. Eyes: EOM are normal. Neck: Normal range of motion. Neck supple. Cardiovascular: Normal rate, regular rhythm, normal heart sounds and intact distal pulses. Pulmonary/Chest: Effort normal. No respiratory distress. Lung sounds diminished in lower bases Abdominal: Soft. Bowel sounds are normal. He exhibits no distension. There is no tenderness. Musculoskeletal: Normal range of motion. Neurological: He is alert and oriented to person, place, and time. Skin: Skin is warm and dry. Psychiatric: He has a normal mood and affect. His behavior is normal. Nursing note and vitals reviewed. Laboratory & Radiographic Imaging (if done): Results for orders placed or performed during the hospital encounter of 04/27/17 Influenza A,B Rapid Molecular Result Value Ref Range Influenza A Not Detected Not Detected Influenza B Not Detected Not Detected BMP Result Value Ref Range Sodium 143 135 - 145 mmol/L Potassium 4.2 3.5 - 5.1 mmol/L Chloride 106 98 - 108 mmol/L Bicarbonate 28 21 - 32 mmol/L Anion Gap 13 10 - 20 mmol/L Glucose 98 65 - 99 mg/dL BUN 10 8 - 25 mg/dL Creatinine 0.65 0.50 - 1.30 mg/dL eGFR 112 >=60 mL/min/1.73 m2 BUN/Creatinine Ratio 15.4 10.0 - 20.0 Calcium 8.9 8.4 - 10.2 mg/dL NT Pro BNP Result Value Ref Range NT-Pro BNP 241 0 - 300 pg/mL Troponin Result Value Ref Range Troponin T <0.010 <0.040 ng/mL Urinalysis Result Value Ref Range Color, Urine Colorless Colorless, Yellow Clarity, Urine Clear Clear Specific [place] 1.013 1.005 - 1.025 pH, Urine 8.0 (H) 5.0 - 7.0 Protein, Urine Negative Negative mg/dL Glucose, Urine Negative Negative mg/dL Ketones, Urine Negative Negative mg/dL Bilirubin, Urine Negative Negative Urobilinogen, Urine <2.0 <2.0 mg/dL Blood, Urine Negative Negative Nitrite, Urine Negative Negative Leukocyte Esterase, Urine Negative Negative WBCs, Urine <1 0 - 5 /hpf RBCs, Urine 2 0 - 3 /hpf Bacteria, Urine None Seen None Seen /hpf CBC Auto Differential Result Value Ref Range WBC 9.98 4.50 - 11.00 K/mcL RBC 4.36 (L) 4.50 - 5.90 M/mcL Hemoglobin 13.4 (L) 13.5 - 17.5 g/dL Hematocrit 42.1 41.0 - 53.0 % MCV 96.6 80.0 - 100.0 fL MCH 30.7 26.0 - 34.0 pg MCHC 31.8 31.0 - 37.0 g/dL Platelets 273 150 - 400 K/mcL RDW - CV 12.4 11.6 - 14.8 % MPV 10.0 9.0 - 15.5 fL Neutrophils 64.7 % Lymphocytes 17.8 % Monocytes 13.8 % Eosinophils 2.3 % Basophils 1.0 % IG Percent 0.40 % Neutrophils Abs 6.45 1.70 - 7.00 K/mcL Lymphocytes Abs 1.78 0.90 - 4.00 K/mcL Monocytes Abs 1.38 (H) 0.30 - 0.90 K/mcL Eosinophils Abs 0.23 0.00 - 0.50 K/mcL Basophils Abs 0.10 0.00 - 0.30 K/mcL IG Absolute 0.04 0.00 - 0.30 K/mcL Nucleated RBC 0.0 % Nucleated RBC Abs 0.00 0.00 - 0.00 K/mcL XR Chest AP/PA and LAT Final Result No acute cardiopulmonary disease. [facility] [place] Workstation ID: [id number] Procedures MDM This is a medical decision making on a 51-year-old male patient that presents to the emergency room complaint of having shortness of breath and cough for the past couple days. Patient states has been coughing up yellow brown sputum. Patient denies any chills having fevers. Upon examination patient is in no acute respiratory distress at this time. Patient lung sounds are diminished in the lower basis by posteriorly. Patient has no swelling to the distal legs posteriorly. Patient diagnosis is includes a BMP which was 241. Troponin was negative. BMP was unremarkable. Urinalysis was unremarkable. Influenza was negative for influenza A and negative for influenza B. CBC White blood count was 9.98 red blood count was 4.36 hemoglobin is 13.4 hematocrit 42.1 Chest x-ray shows no acute cardiopulmonary process per EKG was obtained shows sinus rhythm of 61 T-wave inversion in V1. Nonspecific EKG. Patient overall is well-appearing nontoxic at this time. While in the emergency department patient did receive a breathing treatment along with 975 mg of Tylenol and Zofran 4 mg IV. Upon reexamination patient states still feeling not quite as well but feels okay to go home at this time and be discharged. Patient will be discharged home and follow-up with his primary care doctor for further evaluation. Patient to be discharged home with diagnosis of shortness of breath and cough with a subjective fever from an unknown source. Patient is going to be given a prescription for Zithromax pack due to his past history of pneumonia and history of smoking. Patient also discussed using his inhaler albuterol as needed for his cough and shortness of breath. Patient verbalized understanding. Discussed the test results with the patient patient verbalized understanding. Patient aware to return to the emergency department with any changes, she symptoms any concerns that he may have. Patient verbalized understanding. ED Course . . Clinical Impression: SNOMED CT(R) 1. SOB (shortness of breath) DYSPNEA 2. Cough COUGH Follow-up Information 1. Shawna Rodriguez MD. Specialty: Family Medicine [address] [place], [place] [id number] Contact information for after-discharge care Follow-up information has not been specified. New Prescriptions AZITHROMYCIN (Z-JESUS) 5 DAY DOSE PACK Take two tablets by mouth on day 1, then one tablet by mouth daily until finished.. (Please note that portions of this note may have been completed with a voice recognition software. Efforts were made to correct any errors, but occasionally words are mis-transcribed.) Filiberto Finley, [place] 04/27/17 1123 Pt arrives to ED via squad with c/o productive cough x several days and associated SOB which is unrelieved by his MDI. Pt reports chest soreness diffusely to sternum d/t coughing and has had episodes of post tussive emesis. Resp reg and unlabored. Skin warm and dry. Pt 98% spo2 on RA. Bed: 26 Expected date: Expected time: Means of arrival: Comments: Medic 815, ANNABELLE, [place] this encounter Pt c/o of abdominal pain x a few days that worsened today. States hx of PUD. Denies N/V/D. Denies any further needs at this time. Pt alert and oriented x4, respirations easy and unlabored. Will continue to monitor. I saw the patient individually. The advanced practice provider was not involved in this patient's care. The patient has been informed that they may have pre-hypertension or hypertension based on a blood pressure reading in the Emergency Department. I recommend that the patient call the primary care provider listed on their discharge instructions or a physician of their choice as soon as possible to arrange follow-up in the next 4 weeks for further evaluation of possible pre-hypertension or hypertension. . Formatting of this note may be different from the original. ED PROVIDER NOTE [facility] EMERGENCY DEPARTMENT NAME: Shawna Gabriela Jo AGE: 52 y.o. : 1965 VISIT DATE: 10/28/2017 CSN: [id number] PCP: Shawna Rodriguez MD Chief complaint: Upper abdominal pain. History of present illness: This is a 52-year-old gentleman who has history of COPD and ulcer disease. He complains of upper abdominal pain for 3-4 days. He has had no nausea, vomiting or diarrhea. He has had no melena or hematochezia. States the pain is continuous. He states that he is supposed to be on stomach pills. He denies any chest pain. Denies any shortness of breath. He rates his pain as about 6 out of 10. Chief Complaint Patient presents with Abdominal Pain HPI Past Medical History: Diagnosis Date Asthma Back pain Pneumonia Sinus disease Past Surgical History: Procedure Laterality Date HERNIA REPAIR SKIN CANCER EXCISION History reviewed. No pertinent family history. Social History Social History Marital status: Spouse name: N/A Number of children: N/A Years of education: N/A Occupational History Not on file. Social History Main Topics Smoking status: Former Smoker Packs/day: 1.00 Years: 33.00 Types: Cigarettes Quit date: 05/2016 Smokeless tobacco: Current User Types: Chew Alcohol use No Drug use: No Sexual activity: Not on file Other Topics Concern Not on file Social History Narrative No narrative on file Previous Medications ALBUTEROL 90 MCG/ACTUATION INHALER Inhale 2 puffs every 6 (six) hours as needed for wheezing. AZITHROMYCIN (Z-JESUS) 5 DAY DOSE PACK Take two tablets by mouth on day 1, then one tablet by mouth daily until finished.. HYDROCODONE-ACETAMINOPHEN (NORCO) 5-325 MG PER TABLET Take 1 tablet by mouth every 6 (six) hours as needed for pain. IPRATROPIUM (ATROVENT HFA) 17 MCG/ACTUATION INHALER Inhale 2 puffs 4 (four) times a day. No Known Allergies Review of Systems Constitutional: Negative for fever. HENT: Negative for ear pain. Eyes: Negative for pain. Respiratory: Negative for shortness of breath. Cardiovascular: Negative for chest pain. Gastrointestinal: Positive for abdominal pain. Negative for diarrhea, nausea and vomiting. Endocrine: Negative for polydipsia and polyuria. Genitourinary: Negative for flank pain. Musculoskeletal: Negative for back pain. Skin: Negative for rash. Allergic/Immunologic: Negative for immunocompromised state. Neurological: Negative for headaches. Hematological: Does not bruise/bleed easily. Psychiatric/Behavioral: Negative for confusion. Patient Vitals for the past 24 hrs: BP Temp Temp src Pulse Resp SpO2 10/28/17 0130 (!) 140/85 98.1 ?F (36.7 ?C) Oral 62 16 98 % Physical Exam Constitutional: He is oriented to person, place, and time. Middle-aged male in no distress. HENT: Head: Normocephalic and atraumatic. Eyes: EOM are normal. Pupils are equal, round, and reactive to light. Neck: Normal range of motion. Neck supple. Cardiovascular: Normal rate and regular rhythm. Pulmonary/Chest: Effort normal and breath sounds normal. Abdominal: Soft. There is tenderness in the epigastric area. There is no rigidity, no rebound, no guarding, no CVA tenderness, no tenderness at McBurney's point and negative De Santiago's sign. Epigastric tenderness, no guarding, rebound, rigidity, or peritonitis. Negative De Santiago sign. No tenderness at McBurney's point. Musculoskeletal: Normal range of motion. Neurological: He is alert and oriented to person, place, and time. Skin: Skin is warm and dry. Laboratory & Radiographic Imaging (if done): Results for orders placed or performed during the hospital encounter of 10/28/17 BMP Result Value Ref Range Sodium 146 (H) 135 - 145 mmol/L Potassium 3.4 (L) 3.5 - 5.1 mmol/L Chloride 105 98 - 108 mmol/L Bicarbonate 27 21 - 32 mmol/L Anion Gap 17 10 - 20 mmol/L Glucose 95 65 - 99 mg/dL BUN 15 8 - 25 mg/dL Creatinine 0.71 0.50 - 1.30 mg/dL eGFR 107 >=60 mL/min/1.73 m2 BUN/Creatinine Ratio 21.1 (H) 10.0 - 20.0 Calcium 9.0 8.4 - 10.2 mg/dL Lipase Result Value Ref Range Lipase 28 15 - 65 U/L Urinalysis Result Value Ref Range Color, Urine Yellow Colorless, Yellow Clarity, Urine Clear Clear Specific [place] 1.017 1.005 - 1.025 pH, Urine 5.0 5.0 - 7.0 Protein, Urine Negative Negative mg/dL Glucose, Urine Negative Negative mg/dL Ketones, Urine Negative Negative mg/dL Bilirubin, Urine Negative Negative Urobilinogen, Urine <2.0 <2.0 mg/dL Blood, Urine Negative Negative Nitrite, Urine Negative Negative Leukocyte Esterase, Urine Negative Negative WBCs, Urine 1 0 - 5 /hpf RBCs, Urine 3 0 - 3 /hpf Bacteria, Urine None Seen None Seen /hpf Squamous Epithelial <1 0 - 4 /hpf Mucus, Urine Rare None Seen, Rare /lpf Gold Top Result Value Ref Range Extra Tube Hold for add-ons. Light Blue Top Result Value Ref Range Extra Tube Hold for add-ons. [place] Top Result Value Ref Range Extra Tube Hold for add-ons. CBC Auto Differential Result Value Ref Range WBC 8.43 4.50 - 11.00 K/mcL RBC 4.48 (L) 4.50 - 5.90 M/mcL Hemoglobin 13.9 13.5 - 17.5 g/dL Hematocrit 42.7 41.0 - 53.0 % MCV 95.3 80.0 - 100.0 fL MCH 31.0 26.0 - 34.0 pg MCHC 32.6 31.0 - 37.0 g/dL Platelets 226 150 - 400 K/mcL RDW - CV 12.8 11.6 - 14.8 % MPV 10.3 9.0 - 15.5 fL Neutrophils 50.5 % Lymphocytes 25.0 % Monocytes 17.1 % Eosinophils 5.5 % Basophils 1.7 % IG Percent 0.20 % Neutrophils Abs 4.26 1.70 - 7.00 K/mcL Lymphocytes Abs 2.11 0.90 - 4.00 K/mcL Monocytes Abs 1.44 (H) 0.30 - 0.90 K/mcL Eosinophils Abs 0.46 0.00 - 0.50 K/mcL Basophils Abs 0.14 0.00 - 0.30 K/mcL IG Absolute 0.02 0.00 - 0.30 K/mcL Nucleated RBC 0.0 % Nucleated RBC Abs 0.00 0.00 - 0.00 K/mcL CT Abdomen Pelvis With IV Contrast Only Preliminary Result 1. No acute findings in the abdomen or pelvis. 2. A few mildly enlarged retroperitoneal lymph nodes measure up to 1.2 cm in short axis. Clinical follow-up is recommended. If indicated, repeat imaging could be obtained in 3 to 6 months to evaluate for ion exchange operator time. ARC/hff Workstation ID: [id number] Medical decision-making: CBC was unremarkable. Electrolytes were unremarkable. CT demonstrates some mild retroperitoneal lymph nodes. These are nonspecific. There is no evidence of carcinoma. Patient has no appendicitis. The patient has no diverticulitis. He is not having any GI bleeding. I am going to refer him to GI specialty for outpatient endoscopy. I have given him IV Protonix. Impression: Epigastric pain. Disposition: Discharge. Patient is given 24 follow-up instructions for increasing abdominal pain. Procedures MDM The patient has been informed that they may have pre-hypertension or hypertension based on a blood pressure reading in the Emergency Department. I recommend that the patient call the primary care provider listed on their discharge instructions or a physician of their choice as soon as possible to arrange follow-up in the next 4 weeks for further evaluation of possible pre-hypertension or hypertension. . Clinical Impression: No diagnosis found. Follow-up Information Follow-up information has not been specified. Contact information for after-discharge care Follow-up information has not been specified. New Prescriptions No medications on file (Please note that portions of this note may have been completed with a voice recognition software. Efforts were made to correct any errors, but occasionally words are mis-transcribed.) Raciel Herring MD 10/28/17 0616 Pt having abd pain for a few days. Pt dneies n/v/d. Pt has a hx of ulcers.in this encounter Patient assessment as documented. Vital signs stable before discharge. IV removed. Tele monitor removed, cleaned and returned to locked drawer inside room. AVS discharge instructions reviewed with patient, all questions answered appropriately, no further questions at that time. Cab to pick the patient up at 1430. Problem: Actual or potential alteration in health Goal: Absence of healthcare acquired conditions Outcome: Partially Met Goal: Knowledge of Interdisciplinary Plan of Care Outcome: Partially Met Goal: Knowledge of Enviroment Outcome: Partially Met Problem: Pain Goal: Manage acute pain Outcome: Partially Met Brief Post Operative Note Patient Name: Shawna Ochoa Ren Deysi : 1965 (54 y.o.) Date of Service: 05/03/2020 - 05/04/2020 [facility]: [id number] Procedure(s): Left Heart Cath Possible PTCA/Stent Pre-Operative Diagnoses: * * No pre-op diagnosis entered * Post-Operative Diagnoses: Surgeon(s) and Role: * Cristela Chao MD - Primary No anesthesia staff entered. Nursery Supervisor: Kwabena Tan RRT Scrub Person: Slim Bowden, TECHNOLOGIST Documenter: Paola Lopez RN Operative findings: Completed the left heart cath using right radial approach for this nice 54-year-old gentleman who was admitted with acute coronary syndrome. He was found to have a critical stenosis of his proximal LAD at the bifurcation with a diagonal as well as high-grade stenosis involving the proximal circumflex which was a large dominant system. RCA was small nonsignificant system. He underwent complex but successful angioplasty and stenting of a proximal LAD with diagonal bifurcation. Both LAD and diagonal were wired and ballooned using 2.5 mm balloon. Subsequently 3.0 x 15 mm stent was placed in the proximal LAD and postdilated using a 3.5 mm NC balloon. IVUS was done after the stent which showed an opportunity for better expansion therefore we went with a 3.5 mm NC balloon. We initially flow I ordered circumflex lesion and IFR came back significantly abnormal at 0.67 subsequently the lesion was stented using 3.0 x 12 mm Xience drug-eluting stent postdilated using a 3.5 mm NC balloon at high atmospheric pressure. Noted on the final showed that there was a new lesion at the ostium of the diagonal branch subsequently we attempted wiring the lesion and a during that we noted the resolution of what appeared to be a plaque shift. Patient initially reported chest pain but subsequently pain was resolved. His EKG continue to be normal. PIEDAD flow was 3 in both LAD and diagonal. Intra and immediate post-operative complications: none Type of anesthesia used: conscious sedation Estimated blood loss: Minimal Estimated urine output: Refer to surgical log Specimen(s): * No specimens in log * Implant(s): Implant Name Type Inv. Item Serial No. Dough Maker Lot No. LRB No. Used Action STENT 3.00 X 15 XIENCE BONILLA RX - [id number] Stent STENT 3.00 X 15 XIENCE BONILLA RX PAK VAS [id number] Left 1 Implanted STENT 3.50 X 15 XIENCE BONILLA RX - [id number] Stent STENT 3.50 X 15 XIENCE BONILLA RX PAK VAS [id number] Left 1 Implanted Drain(s): * No LDAs found * Wound(s): * No LDAs found * Cristela Chao MD 05/04/2020 3:44 PM Associated Problem(s): Tobacco abuse, in remission Patient previously smoked 1 to 3 packs/day but quit 7 years ago -Continue to encourage smoking cessation Associated Problem(s): COPD (chronic obstructive pulmonary disease) ([facility]) -Management per primary service Associated Problem(s): NSTEMI (non-ST elevated myocardial infarction) ([facility]) Patient presented to [facility] with unremitting CP First experienced events approximately 1 week ago which lasted a couple minutes and were relieved with rest CP relieved with nitroglycerin paste No known personal or family history of CAD States he had a stress test in 2012 or 2013 and was uncertain if it was abnormal or not TTE performed at [facility] in 02/2015 revealed LVEF of 60 to 65% and RVSP of 33 Patient is a former smoker, quit 7 years ago, used to smoke anywhere from 1 to 3 packs/day High-sensitivity troponin at [facility] 932 Troponin at 293->340, 16 Heparin drip initiated by primary service Patient given 325 mg of ASA at [facility] No acute ischemic changes on twelve-lead EKG, possible balanced ischemia Darline score 69 points PIEDAD score 1 point LDL 120 -Will likely pursue [facility], continue NPO -Continue heparin drip -Continue ASA, statin and BB (no overt signs of acute heart failure) -TTE ordered -Hemoglobin A1c ordered -UDS ordered, concern for drug use, lives with active cocaine users -Telemetry monitoring -Repeat twelve-lead EKG documented in this encounter (unrecognized sect ion and content) No Status Records FoundNo Status Records FoundNo Status Records FoundNo Status Records FoundNo Status Records FoundNo Status Records FoundNo Status Records FoundNo Status Records FoundNo Status Records FoundNo Status Records FoundNo Status Records FoundNo Status Records FoundNo Status Records FoundNo Status Records Found INFORMATION SOURCE (unrecogn ized section and content) DATE CREATED AUTHOR 02/02/2019 [facility] DATE CREATED AUTHOR AUTHOR'S ORGANIZ ATION 02/02/2019 [facility] DATE CREATED AUTHOR AUTHOR'S ORGANIZ ATION 02/02/2019 [facility] DATE CREATED AUTHOR AUTHOR'S ORGANIZ ATION 01/12/2020 [facility] DATE CREATED AUTHOR AUTHOR'S ORGANIZ ATION 05/11/2020 [facility] DATE CREATED AUTHOR AUTHOR'S ORGANIZ ATION 08/23/2020 [facility] DATE CREATED AUTHOR AUTHOR'S ORGANIZ ATION 05/26/2021 [facility] DATE CREATED AUTHOR AUTHOR'S ORGANIZ ATION 06/25/2021 [facility] DATE CREATED AUTHOR AUTHOR'S ORGANIZ ATION 01/25/2022 [facility] DATE CREATED AUTHOR AUTHOR'S ORGANIZ ATION 08/17/2022 [facility] DATE CREATED AUTHOR AUTHOR'S ORGANIZ ATION 08/01/2024 [facility] DATE CREATED AUTHOR AUTHOR'S ORGANIZ ATION 10/01/2024 [facility] DATE CREATED AUTHOR AUTHOR'S ORGANIZ ATION 11/30/2024 [facility] DATE CREATED AUTHOR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 INSTRUCTOR OF EDUCATION, INSTRUCTOR OF EDUCATION-C Primary Care Provider Active Dr. Lance Prado DO Attending Provider, Emergency Provide r Active Team Status: Inactive Member Role Status Dates Dr. Samir Jordan MD Primary Care Provider Active Dr. Arley Alvarado DO Attending Provider, Emergency P meghan Active Team Status: Inactive Member Role Status Dates Dr. Samir Jordan MD Primary Care Provider Active Dr. Tamiko Marin MD Attending Provider Active Artist Color Separation Relationship Specialty Start Date End Date Charles Charles, ASSISTANT TODDLER TEACHER [address] [facility] [address] [place] [address] PCP - General Nurse Practitioner-Family 05/18/21 Artist Color Separation Relationship Specialty Start Date End Date Samir Jordan MD [address] [place], [place] [id number] PCP - General Internal Medicine 05/17/22 Artist Color Separation Relationship Specialty Start Date End Date Samir Jordan MD [address] [place], [place] [id number] PCP - General Internal Medicine 05/17/22 Team Status: Active Member Role Status Dates Charles Charles INSTRUCTOR OF EDUCATION, INSTRUCTOR OF EDUCATION-C Primary Care Provider Active Dr. Claritza Galvez MD Attending Provider Activ e Dr. Kenneth Zaragoza MD Referring Provider Active Team Status: Inactive Member Role Status Dates Charles Charles INSTRUCTOR OF EDUCATION, INSTRUCTOR OF EDUCATION-C Primary Care Provider Active Dr. Kenneth Zaragoza MD Attending Provider, Emergency Provider Active Artist Color Separation Relationship Specialty Start Date End Date Samir Jordan MD [address] [facility] [place] [address] PCP - General Internal Medicine 05/17/22 Artist Color Separation Relationship Specialty Start Date End Date Samir Jordan MD [address] [place] [address] PCP - General Internal Medicine 05/17/22 Artist Color Separation Relationship Specialty Start Date End Date Samir Jordan MD [address] [place] [address] PCP - General Internal Medicine 05/17/22 Artist Color Separation Relationship Specialty Start Date End Date Samir Jordan MD [address] [place] [address] PCP - General Internal Medicine 05/17/22 Artist Color Separation Relationship Specialty Start Date End Date Samir Jordan MD [address] [place] [address] PCP - General Internal Medicine 05/17/22 Artist Color Separation Relationship Specialty Start Date End Date Samir Jordan MD [address] [place] [address] PCP - General Internal Medicine 05/17/22 Artist Color Separation Relationship Specialty Start Date End Date Samir Jordan MD [address] [place] [address] PCP - General Internal Medicine 05/17/22 Artist Color Separation Relationship Specialty Start Date End Date Samir Jordan MD [address] [facility] [place] [address] PCP - General Internal Medicine 05/17/22 Artist Color Separation Relationship Specialty Start Date End Date Samir Jordan MD [address] [place] [address] PCP - General Internal Medicine 05/17/22 Artist Color Separation Relationship Specialty Start Date End Date Samir Jordan MD [address] [place] [address] PCP - General Internal Medicine 05/17/22 Artist Color Separation Relationship Specialty Start Date End Date Samir Jordan MD [address] [place] [address] PCP - General Internal Medicine 05/17/22 Artist Color Separation Relationship Specialty Start Date End Date Samir Jordan MD [address] [place] [address] PCP - General Internal Medicine 05/17/22 Artist Color Separation Relationship Specialty Start Date End Date Samir Jordan MD [address] [place] [address] PCP - General Internal Medicine 05/17/22 Artist Color Separation Relationship Specialty Start Date End Date Samir Jordan MD [address] [place] [address] PCP - General Internal Medicine 05/17/22 Team Status: Inactive Member Role Status Dates Dr. Samir Jordan MD Primary Care Provider Active Dr. Ki Vazquez DO Emergency Provider Active Team Status: Active Member Role Status Dates Dr. Samir Jordan MD Primary Care Provider Active Dr. Chucho Raphael MD Emergency Provider Active Dr. Cammy Remy , DO Admit Provider, Attending Provide r Active Artist Color Separation Relationship Specialty Start Date End Date Samir Jordan MD [address] [facility] [place] [address] PCP - General Internal Medicine 05/17/22 Artist Color Separation Relationship Specialty Start Date End Date Samir Jordan MD [address] [facility] [place] [address] PCP - General Internal Medicine 05/17/22 Artist Color Separation Relationship Specialty Start Date End Date Samir Jordan MD [address] [place] [address] PCP - General Internal Medicine 05/17/22 Artist Color Separation Relationship Specialty Start Date End Date Samir Jordan MD [address] [facility] [place] [address] PCP - General Internal Medicine 05/17/22 Artist Color Separation Relationship Specialty Start Date End Date Samir Jordan MD [address] [place] [address] PCP - General Internal Medicine 05/17/22 Artist Color Separation Relationship Specialty Start Date End Date Samir Jordan MD [address] [place] [address] PCP - General Internal Medicine 05/17/22 Artist Color Separation Relationship Specialty Start Date End Date Samir Jordan MD [address] [facility] [place] [address] PCP - General Internal Medicine 05/17/22 Artist Color Separation Relationship Specialty Start Date End Date Samir Jordan MD [address] [place] [address] PCP - General Internal Medicine 05/17/22 Team Status: Active Member Role Status Dates Dr. Samir Jordan MD Primary Care Provider Active Dr. Arley Pompa MD Attending Provider Active Dr. Cammy Alberto DO Referring Provider Active Team Status: Active Member Role Status Dates Dr. Samir Jordan MD Primary Care Provider Active Dr. Chucho Raphael MD Emergency Provider Active Dr. Cammy Alberto DO Admit Provider, Other Provider Ac tive Dr. Leroy Keating DO Attending Provider, Other Pro vider Active Dr. Alfred Baptiste MD Other Provider Active Team Status: Inactive Member Role Status Dates Dr. Samir Jordan MD Primary Care Provider Active Dr. Tyler Desir MD Emergency Provider Active Artist Color Separation Relationship Specialty Start Date End Date Samir Jordan MD [address] [place] [address] PCP - General Internal Medicine 05/17/22 Artist Color Separation Relationship Specialty Start Date End Date Samir Jordan MD [address] [place], [place] [address] PCP - General Internal Medicine 05/17/22 Artist Color Separation Relationship Specialty Start Date End Date Samir Jordan MD [address] [place] [address] PCP - General Internal Medicine 05/17/22 Artist Color Separation Relationship Specialty Start Date End Date Samir Jordan MD [address] [place], [place] [address] PCP - General Internal Medicine 05/17/22 Artist Color Separation Relationship Specialty Start Date End Date Samir Jordan MD [address] [place], [place] [address] [phone] PCP - General Internal Medicine 05/17/22 Artist Color Separation Relationship Specialty Start Date End Date Samir Jordan MD [address] [facility] [place] [address] PCP - General Internal Medicine 05/17/22 Artist Color Separation Relationship Specialty Start Date End Date Samir Jordan MD [address] [facility] [place] [address] PCP - General Internal Medicine 05/17/22 Artist Color Separation Relationship Specialty Start Date End Date Samir Jordan MD [address] [facility] [place] [address] PCP - General Internal Medicine 05/17/22 Artist Color Separation Relationship Specialty Start Date End Date Samir Jordan MD [address] [facility] [place] [address] PCP - General Internal Medicine 05/17/22 Artist Color Separation Relationship Specialty Start Date End Date Samir Jordan MD [address] [facility] [place] [address] PCP - General Internal Medicine 05/17/22 Artist Color Separation Relationship Specialty Start Date End Date Samir Jordan MD [address] [facility] [place] [address] PCP - General Internal Medicine 05/17/22 Team Status: Inactive Member Role Status Dates Dr. Samir Jordan MD Primary Care Provider Active Dr. Domenic Senior DO Emergency Provider Active Artist Color Separation Relationship Specialty Start Date End Date Samir Jordan MD [address] [facility] [place] [address] PCP - General Internal Medicine 05/17/22 Artist Color Separation Relationship Specialty Start Date End Date Samir Jordan MD [address] [facility] [place] [address] PCP - General Internal Medicine 05/17/22 Artist Color Separation Relationship Specialty Start Date End Date Samir Jordan MD [address] [facility] [place] [address] PCP - General Internal Medicine 05/17/22 Artist Color Separation Relationship Specialty Start Date End Date Samir Jordan MD [address] [facility] [place] [address] PCP - General Internal Medicine 05/17/22 Artist Color Separation Relationship Specialty Start Date End Date Samir Jordan MD [address] [facility] [place] [address] PCP - General Internal Medicine 05/17/22 Artist Color Separation Relationship Specialty Start Date End Date Samir Jordan MD [address] [facility] [place] [address] PCP - General Internal Medicine 05/17/22 Artist Color Separation Relationship Specialty Start Date End Date Samir Jordan MD [address] [facility] [place] [address] PCP - General Internal Medicine 05/17/22 Artist Color Separation Relationship Specialty Start Date End Date Samir Jordan MD [address] [facility] [place] [address] PCP - General Internal Medicine 05/17/22 Artist Color Separation Relationship Specialty Start Date End Date Samir Jordan MD [address] [place] [address] PCP - General Internal Medicine 05/17/22 Leah Shaikh, 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 [address] [place] [address] Fork Lift Truck Operator Internal Medicine 04/05/24 Artist Color Separation Relationship Specialty Start Date End Date Samir Jordan MD [address] [place] [address] PCP - General Internal Medicine 05/17/22 Leah Shaikh, 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 [address] [place] [address] Fork Lift Truck Operator Internal Medicine 04/05/24 Artist Color Separation Relationship Specialty Start Date End Date Samir Jordan MD [address] [place] [address] PCP - General Internal Medicine 05/17/22 Leah Shaikh, 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 [address] [place] [address] Fork Lift Truck Operator Internal Medicine 04/05/24 Artist Color Separation Relationship Specialty Start Date End Date Samir Jordan MD [address] [place] [address] PCP - General Internal Medicine 05/17/22 Leah Shaikh, 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 [address] [place] [address] Fork Lift Truck Operator Internal Medicine 04/05/24 Artist Color Separation Relationship Specialty Start Date End Date Samir Jordan MD [address] [facility] [place] [address] PCP - General Internal Medicine 05/17/22 Leah Shaikh, 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 [address] [facility] [place] [address] Fork Lift Truck Operator Internal Medicine 04/05/24 Artist Color Separation Relationship Specialty Start Date End Date Samir Jordan MD [address] [facility] [place] [address] PCP - General Internal Medicine 05/17/22 Leah hSaikh, 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 [address] [facility] [place] [address] Fork Lift Truck Operator Internal Medicine 04/05/24 Artist Color Separation Relationship Specialty Start Date End Date Samir Jordan MD [address] [facility] [place] [address] PCP - General Internal Medicine 05/17/22 Leah Shaikh, 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 [address] [facility] [place] [address] Fork Lift Truck Operator Internal Medicine 04/05/24 Artist Color Separation Relationship Specialty Start Date End Date Samir Jordan MD [address] [facility] [place] [address] PCP - General Internal Medicine 05/17/22 Leah Shaikh, 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 [address] [facility] [place] [address] Fork Lift Truck Operator Internal Medicine 04/05/24 Artist Color Separation Relationship Specialty Start Date End Date Samir Jordan MD [address] [facility] [place] [address] PCP - General Internal Medicine 05/17/22 Leah Shaikh, 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 [address] [facility] [place] [address] Fork Lift Truck Operator Internal Medicine 04/05/24 Artist Color Separation Relationship Specialty Start Date End Date Samir Jordan MD [address] [facility] [place] [address] PCP - General Internal Medicine 05/17/22 Leah Shaikh, 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 [address] [facility] [place] [address] Fork Lift Truck Operator Internal Medicine 04/05/24 Artist Color Separation Relationship Specialty Start Date End Date Samir Jordan MD [address] [facility] [place] [address] PCP - General Internal Medicine 05/17/22 Leah Shaikh, 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 [address] [facility] [place] [address] Fork Lift Truck Operator Internal Medicine 04/05/24 Artist Color Separation Relationship Specialty Start Date End Date Samir Jordan MD [address] [facility] [place] [address] PCP - General Internal Medicine 05/17/22 Leah Shaikh, 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 [address] [facility] [place] [address] Fork Lift Truck Operator Internal Medicine 04/05/24 Artist Color Separation Relationship Specialty Start Date End Date Samir Jordan MD [address] [facility] [place] [address] PCP - General Internal Medicine 05/17/22 Leah Shaikh, 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 [address] [facility] [place] [address] [employer] Internal Medicine 04/05/24 Artist Color Separation Relationship Specialty Start Date End Date Samir Jordan MD [address] [facility] [place] [address] PCP - General Internal Medicine 05/17/22 Leah Shaikh, 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 [address] [facility] [place] [address] [employer] Lift Truck Operator Internal Medicine 04/05/24 Artist Color Separation Relationship Specialty Start Date End Date Samir Jordan MD [address] [facility] [place] [address] PCP - General Internal Medicine 05/17/22 Leah Shaikh, 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 [address] [facility] [place] [address] [employer] Lift Truck Operator Internal Medicine 04/05/24 Artist Color Separation Relationship Specialty Start Date End Date Samir Jordan MD [address] [facility] [place] [address] PCP - General Internal Medicine 05/17/22 Leah Shaikh, 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 [address] [facility] [place] [address] [employer]ift Truck Operator Internal Medicine 04/05/24 Artist Color Separation Relationship Specialty Start Date End Date Samir Jordan MD [address] [facility] [place] [address] PCP - General Internal Medicine 05/17/22 Leah Shaikh, 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 [address] [facility] [place] [address] [employer] Lift Truck Operator Internal Medicine 04/05/24 Artist Color Separation Relationship Specialty Start Date End Date Samir Jordan MD [address] [facility] [place] [address] PCP - General Internal Medicine 05/17/22 Leah Shaikh, 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 [address] [facility] [place] [address] [employer] Lift Truck Operator Internal Medicine 04/05/24 Artist Color Separation Relationship Specialty Start Date End Date Samir Jordan MD [address] [facility] [place] [address] PCP - General Internal Medicine 05/17/22 Leah Shaikh, 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 [address] [facility] [place] [address] F[employer] Lift Truck Operator Internal Medicine 04/05/24 Artist Color Separation Relationship Specialty Start Date End Date Samir Jordan MD [address] [facility] [place] [address] PCP - General Internal Medicine 05/17/22 Leah Shaikh, 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 [address] [facility] [place] [address] F[employer] Lift Truck Operator Internal Medicine 04/05/24 Artist Color Separation Relationship Specialty Start Date End Date Samir Jordan MD [address] [facility], [place] [address] PCP - General Internal Medicine 05/17/22 Leah Shaikh, 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 [address] [facility] [place] [address] [employer] Lift Truck Operator Internal Medicine 04/05/24 Artist Color Separation Relationship Specialty Start Date End Date Samir Jordan MD [address] [facility] [place] [address] PCP - General Internal Medicine 05/17/22 Leah Shaikh, 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 [address] [facility] [place] [address] F[employer] Lift Truck Operator Internal Medicine 04/05/24 Artist Color Separation Relationship Specialty Start Date End Date Samir Jordan MD [address] [facility] [place] [address] PCP - General Internal Medicine 05/17/22 Leah Shaikh, 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 [address] [facility] [place] [address] F[employer] Lift Truck Operator Internal Medicine 04/05/24 Artist Color Separation Relationship Specialty Start Date End Date Samir Jordan MD [address] [facility], [place] [address] PCP - General Internal Medicine 05/17/22 Leah Shaikh, 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 [address] [facility] [place] [address] F[employer] Lift Truck Operator Internal Medicine 04/05/24 Artist Color Separation Relationship Specialty Start Date End Date Samir Jordan MD [address] [place], [place] [address] PCP - General Internal Medicine 05/17/22 Leah Shaikh, 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 [address] [place] [address] [employer] Lift Truck Operator Internal Medicine 04/05/24 Artist Color Separation Relationship Specialty Start Date End Date Samir Jordan MD [address] [place], [place] [address] PCP - General Internal Medicine 05/17/22 Leah Shaikh, 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 [address] [place] [address] [employer] Lift Truck Operator Internal Medicine 04/05/24 Artist Color Separation Relationship Specialty Start Date End Date Samir Jordan MD [address] [place], [place] [address] PCP - General Internal Medicine 05/17/22 Leah Shaikh, 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 [address] [place] [address] [employer] Lift Truck Operator Internal Medicine 04/05/24 Artist Color Separation Relationship Specialty Start Date End Date Samir Jordan MD [address] [place] [address] PCP - General Internal Medicine 05/17/22 Leah Shaikh, 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 [address] [place] [address] [employer] Lift Truck Operator Internal Medicine 04/05/24 Artist Color Separation Relationship Specialty Start Date End Date Samir Jordan MD [address] [facility] [place] [address] PCP - General Internal Medicine 05/17/22 Leah Shaikh, 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 [address] [place] [address] F[employer] Lift Truck Operator Internal Medicine 04/05/24 Artist Color Separation Relationship Specialty Start Date End Date Samir Jordan MD [address] [facility] [place] [address] PCP - General Internal Medicine 05/17/22 Leah Shaikh, 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 [address] [place] [address] F[employer] Lift Truck Operator Internal Medicine 04/05/24 Artist Color Separation Relationship Specialty Start Date End Date Samir Jordan MD [address] [facility] [place] [address] PCP - General Internal Medicine 05/17/22 Leah Shaikh, 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 [address] [place] [address] Fork Lift Truck Operator Internal Medicine 04/05/24 Artist Color Separation Relationship Specialty Start Date End Date Samir Jordan MD [address] [place], [place] [address] PCP - General Internal Medicine 05/17/22 Leah Shaikh, 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 [address] [place] [address] [facility] Internal Medicine 04/05/24 Goals (unrecognized section and content) Goals may be documented in a n alternate sectionGoals may be documented in an alternate sectionGoals may be documented in an alternate sectionGoals may be documented in an alternate sectionGoals may be documented in an alternate sectionGoals may be documented in an alternate sectionGoals may be documented in an alternate sectionGoals may be documented in an alternate sectionGoals may be documented in an alternate section Source Comments (unrecognize d section and content) In the event this informatio n is protected by the Federal Confidentiality of Alcohol and Drug Abuse Patient Records regulations: The Federal rules restrict any use of the information to criminally investigate or prosecute any alcohol or drug abuse patient.[facility] HospitalIn the event this information is protected by the Federal Confidentiality of Alcohol and Drug Abuse Patient Records regulations: The Federal rules restrict any use of the information to criminally investigate or prosecute any alcohol or drug abuse patient.[facility] HospitalIn the event this information is protected by the Federal Confidentiality of Alcohol and Drug Abuse Patient Records regulations: The Federal rules restrict any use of the information to criminally investigate or prosecute any alcohol or drug abuse patient.[facility] HospitalIn the event this information is protected by the Federal Confidentiality of Alcohol and Drug Abuse Patient Records regulations: The Federal rules restrict any use of the information to criminally investigate or prosecute any alcohol or drug abuse patient.[facility] HospitalIn the event this information is protected by the Federal Confidentiality of Alcohol and Drug Abuse Patient Records regulations: The Federal rules restrict any use of the information to criminally investigate or prosecute any alcohol or drug abuse patient.[facility] HospitalIn the event this information is protected by the Federal Confidentiality of Alcohol and Drug Abuse Patient Records regulations: The Federal rules restrict any use of the information to criminally investigate or prosecute any alcohol or drug abuse patient.[facility] HospitalIn the event this information is protected by the Federal Confidentiality of Alcohol and Drug Abuse Patient Records regulations: The Federal rules restrict any use of the information to criminally investigate or prosecute any alcohol or drug abuse patient.[facility] HospitalIn the event this information is protected by the Federal Confidentiality of Alcohol and Drug Abuse Patient Records regulations: The Federal rules restrict any use of the information to criminally investigate or prosecute any alcohol or drug abuse patient.[facility] HospitalIn the event this information is protected by the Federal Confidentiality of Alcohol and Drug Abuse Patient Records regulations: The Federal rules restrict any use of the information to criminally investigate or prosecute any alcohol or drug abuse patient.[facility] HospitalIn the event this information is protected by the Federal Confidentiality of Alcohol and Drug Abuse Patient Records regulations: The Federal rules restrict any use of the information to criminally investigate or prosecute any alcohol or drug abuse patient.[facility] HospitalIn the event this information is protected by the Federal Confidentiality of Alcohol and Drug Abuse Patient Records regulations: The Federal rules restrict any use of the information to criminally investigate or prosecute any alcohol or drug abuse patient.[facility] HospitalIn the event this information is protected by the Federal Confidentiality of Alcohol and Drug Abuse Patient Records regulations: The Federal rules restrict any use of the information to criminally investigate or prosecute any alcohol or drug abuse patient.[facility] HospitalIn the event this information is protected by the Federal Confidentiality of Alcohol and Drug Abuse Patient Records regulations: The Federal rules restrict any use of the information to criminally investigate or prosecute any alcohol or drug abuse patient.[facility] HospitalIn the event this information is protected by the Federal Confidentiality of Alcohol and Drug Abuse Patient Records regulations: The Federal rules restrict any use of the information to criminally investigate or prosecute any alcohol or drug abuse patient.[facility] HospitalIn the event this information is protected by the Federal Confidentiality of Alcohol and Drug Abuse Patient Records regulations: The Federal rules restrict any use of the information to criminally investigate or prosecute any alcohol or drug abuse patient.[facility] HospitalIn the event this information is protected by the Federal Confidentiality of Alcohol and Drug Abuse Patient Records regulations: The Federal rules restrict any use of the information to criminally investigate or prosecute any alcohol or drug abuse patient.[facility] HospitalIn the event this information is protected by the Federal Confidentiality of Alcohol and Drug Abuse Patient Records regulations: The Federal rules restrict any use of the information to criminally investigate or prosecute any alcohol or drug abuse patient.[facility] HospitalIn the event this information is protected by the Federal Confidentiality of Alcohol and Drug Abuse Patient Records regulations: The Federal rules restrict any use of the information to criminally investigate or prosecute any alcohol or drug abuse patient.[facility] HospitalIn the event this information is protected by the Federal Confidentiality of Alcohol and Drug Abuse Patient Records regulations: The Federal rules restrict any use of the information to criminally investigate or prosecute any alcohol or drug abuse patient.[facility] HospitalIn the event this information is protected by the Federal Confidentiality of Alcohol and Drug Abuse Patient Records regulations: The Federal rules restrict any use of the information to criminally investigate or prosecute any alcohol or drug abuse patient.[facility] HospitalIn the event this information is protected by the Federal Confidentiality of Alcohol and Drug Abuse Patient Records regulations: The Federal rules restrict any use of the information to criminally investigate or prosecute any alcohol or drug abuse patient.[facility] HospitalIn the event this information is protected by the Federal Confidentiality of Alcohol and Drug Abuse Patient Records regulations: The Federal rules restrict any use of the information to criminally investigate or prosecute any alcohol or drug abuse patient.[facility] HospitalIn the event this information is protected by the Federal Confidentiality of Alcohol and Drug Abuse Patient Records regulations: The Federal rules restrict any use of the information to criminally investigate or prosecute any alcohol or drug abuse patient.[facility] HospitalIn the event this information is protected by the Federal Confidentiality of Alcohol and Drug Abuse Patient Records regulations: The Federal rules restrict any use of the information to criminally investigate or prosecute any alcohol or drug abuse patient.[facility] HospitalIn the event this information is protected by the Federal Confidentiality of Alcohol and Drug Abuse Patient Records regulations: The Federal rules restrict any use of the information to criminally investigate or prosecute any alcohol or drug abuse patient.[facility] HospitalIn the event this information is protected by the Federal Confidentiality of Alcohol and Drug Abuse Patient Records regulations: The Federal rules restrict any use of the information to criminally investigate or prosecute any alcohol or drug abuse patient.[facility] HospitalIn the event this information is protected by the Federal Confidentiality of Alcohol and Drug Abuse Patient Records regulations: The Federal rules restrict any use of the information to criminally investigate or prosecute any alcohol or drug abuse patient.[facility] HospitalIn the event this information is protected by the Federal Confidentiality of Alcohol and Drug Abuse Patient Records regulations: The Federal rules restrict any use of the information to criminally investigate or prosecute any alcohol or drug abuse patient.[facility] HospitalIn the event this information is protected by the Federal Confidentiality of Alcohol and Drug Abuse Patient Records regulations: The Federal rules restrict any use of the information to criminally investigate or prosecute any alcohol or drug abuse patient.[facility] HospitalIn the event this information is protected by the Federal Confidentiality of Alcohol and Drug Abuse Patient Records regulations: The Federal rules restrict any use of the information to criminally investigate or prosecute any alcohol or drug abuse patient.[facility] HospitalIn the event this information is protected by the Federal Confidentiality of Alcohol and Drug Abuse Patient Records regulations: The Federal rules restrict any use of the information to criminally investigate or prosecute any alcohol or drug abuse patient.[facility] HospitalIn the event this information is protected by the Federal Confidentiality of Alcohol and Drug Abuse Patient Records regulations: The Federal rules restrict any use of the information to criminally investigate or prosecute any alcohol or drug abuse patient.[facility] HospitalIn the event this information is protected by the Federal Confidentiality of Alcohol and Drug Abuse Patient Records regulations: The Federal rules restrict any use of the information to criminally investigate or prosecute any alcohol or drug abuse patient.[facility] HospitalIn the event this information is protected by the Federal Confidentiality of Alcohol and Drug Abuse Patient Records regulations: The Federal rules restrict any use of the information to criminally investigate or prosecute any alcohol or drug abuse patient.[facility] HospitalIn the event this information is protected by the Federal Confidentiality of Alcohol and Drug Abuse Patient Records regulations: The Federal rules restrict any use of the information to criminally investigate or prosecute any alcohol or drug abuse patient.[facility] HospitalIn the event this information is protected by the Federal Confidentiality of Alcohol and Drug Abuse Patient Records regulations: The Federal rules restrict any use of the information to criminally investigate or prosecute any alcohol or drug abuse patient.[facility] HospitalIn the event this information is protected by the Federal Confidentiality of Alcohol and Drug Abuse Patient Records regulations: The Federal rules restrict any use of the information to criminally investigate or prosecute any alcohol or drug abuse patient.[facility] HospitalIn the event this information is protected by the Federal Confidentiality of Alcohol and Drug Abuse Patient Records regulations: The Federal rules restrict any use of the information to criminally investigate or prosecute any alcohol or drug abuse patient.[facility] HospitalIn the event this information is protected by the Federal Confidentiality of Alcohol and Drug Abuse Patient Records regulations: The Federal rules restrict any use of the information to criminally investigate or prosecute any alcohol or drug abuse patient.[facility] HospitalIn the event this information is protected by the Federal Confidentiality of Alcohol and Drug Abuse Patient Records regulations: The Federal rules restrict any use of the information to criminally investigate or prosecute any alcohol or drug abuse patient.[facility] HospitalIn the event this information is protected by the Federal Confidentiality of Alcohol and Drug Abuse Patient Records regulations: The Federal rules restrict any use of the information to criminally investigate or prosecute any alcohol or drug abuse patient.[facility] HospitalIn the event this information is protected by the Federal Confidentiality of Alcohol and Drug Abuse Patient Records regulations: The Federal rules restrict any use of the information to criminally investigate or prosecute any alcohol or drug abuse patient.[facility] HospitalIn the event this information is protected by the Federal Confidentiality of Alcohol and Drug Abuse Patient Records regulations: The Federal rules restrict any use of the information to criminally investigate or prosecute any alcohol or drug abuse patient.[facility] HospitalIn the event this information is protected by the Federal Confidentiality of Alcohol and Drug Abuse Patient Records regulations: The Federal rules restrict any use of the information to criminally investigate or prosecute any alcohol or drug abuse patient.[facility] HospitalIn the event this information is protected by the Federal Confidentiality of Alcohol and Drug Abuse Patient Records regulations: The Federal rules restrict any use of the information to criminally investigate or prosecute any alcohol or drug abuse patient.[facility] HospitalIn the event this information is protected by the Federal Confidentiality of Alcohol and Drug Abuse Patient Records regulations: The Federal rules restrict any use of the information to criminally investigate or prosecute any alcohol or drug abuse patient.[facility] HospitalIn the event this information is protected by the Federal Confidentiality of Alcohol and Drug Abuse Patient Records regulations: The Federal rules restrict any use of the information to criminally investigate or prosecute any alcohol or drug abuse patient.[facility] HospitalIn the event this information is protected by the Federal Confidentiality of Alcohol and Drug Abuse Patient Records regulations: The Federal rules restrict any use of the information to criminally investigate or prosecute any alcohol or drug abuse patient.[facility] HospitalIn the event this information is protected by the Federal Confidentiality of Alcohol and Drug Abuse Patient Records regulations: The Federal rules restrict any use of the information to criminally investigate or prosecute any alcohol or drug abuse patient.[facility] HospitalIn the event this information is protected by the Federal Confidentiality of Alcohol and Drug Abuse Patient Records regulations: The Federal rules restrict any use of the information to criminally investigate or prosecute any alcohol or drug abuse patient.[facility] HospitalIn the event this information is protected by the Federal Confidentiality of Alcohol and Drug Abuse Patient Records regulations: The Federal rules restrict any use of the information to criminally investigate or prosecute any alcohol or drug abuse patient.[facility] HospitalIn the event this information is protected by the Federal Confidentiality of Alcohol and Drug Abuse Patient Records regulations: The Federal rules restrict any use of the information to criminally investigate or prosecute any alcohol or drug abuse patient.[facility] HospitalIn the event this information is protected by the Federal Confidentiality of Alcohol and Drug Abuse Patient Records regulations: The Federal rules restrict any use of the information to criminally investigate or prosecute any alcohol or drug abuse patient.[facility] HospitalIn the event this information is protected by the Federal Confidentiality of Alcohol and Drug Abuse Patient Records regulations: The Federal rules restrict any use of the information to criminally investigate or prosecute any alcohol or drug abuse patient.[facility] HospitalIn the event this information is protected by the Federal Confidentiality of Alcohol and Drug Abuse Patient Records regulations: The Federal rules restrict any use of the information to criminally investigate or prosecute any alcohol or drug abuse patient.[facility] HospitalIn the event this information is protected by the Federal Confidentiality of Alcohol and Drug Abuse Patient Records regulations: The Federal rules restrict any use of the information to criminally investigate or prosecute any alcohol or drug abuse patient.[facility] HospitalIn the event this information is protected by the Federal Confidentiality of Alcohol and Drug Abuse Patient Records regulations: The Federal rules restrict any use of the information to criminally investigate or prosecute any alcohol or drug abuse patient.[facility] HospitalIn the event this information is protected by the Federal Confidentiality of Alcohol and Drug Abuse Patient Records regulations: The Federal rules restrict any use of the information to criminally investigate or prosecute any alcohol or drug abuse patient.[facility] HospitalIn the event this information is protected by the Federal Confidentiality of Alcohol and Drug Abuse Patient Records regulations: The Federal rules restrict any use of the information to criminally investigate or prosecute any alcohol or drug abuse patient.[facility] HospitalIn the event this information is protected by the Federal Confidentiality of Alcohol and Drug Abuse Patient Records regulations: The Federal rules restrict any use of the information to criminally investigate or prosecute any alcohol or drug abuse patient.[facility] HospitalIn the event this information is protected by the Federal Confidentiality of Alcohol and Drug Abuse Patient Records regulations: The Federal rules restrict any use of the information to criminally investigate or prosecute any alcohol or drug abuse patient.[facility] HospitalIn the event this information is protected by the Federal Confidentiality of Alcohol and Drug Abuse Patient Records regulations: The Federal rules restrict any use of the information to criminally investigate or prosecute any alcohol or drug abuse patient.[facility] HospitalIn the event this information is protected by the Federal Confidentiality of Alcohol and Drug Abuse Patient Records regulations: The Federal rules restrict any use of the information to criminally investigate or prosecute any alcohol or drug abuse patient.[facility] HospitalIn the event this information is protected by the Federal Confidentiality of Alcohol and Drug Abuse Patient Records regulations: The Federal rules restrict any use of the information to criminally investigate or prosecute any alcohol or drug abuse patient.[facility] HospitalIn the event this information is protected by the Federal Confidentiality of Alcohol and Drug Abuse Patient Records regulations: The Federal rules restrict any use of the information to criminally investigate or prosecute any alcohol or drug abuse patient.[facility] HospitalIn the event this information is protected by the Federal Confidentiality of Alcohol and Drug Abuse Patient Records regulations: The Federal rules restrict any use of the information to criminally investigate or prosecute any alcohol or drug abuse patient.[facility] HospitalIn the event this information is protected by the Federal Confidentiality of Alcohol and Drug Abuse Patient Records regulations: The Federal rules restrict any use of the information to criminally investigate or prosecute any alcohol or drug abuse patient.[facility] HospitalIn the event this information is protected by the Federal Confidentiality of Alcohol and Drug Abuse Patient Records regulations: The Federal rules restrict any use of the information to criminally investigate or prosecute any alcohol or drug abuse patient.[facility] HospitalIn the event this information is protected by the Federal Confidentiality of Alcohol and Drug Abuse Patient Records regulations: The Federal rules restrict any use of the information to criminally investigate or prosecute any alcohol or drug abuse patient.[facility] HospitalIn the event this information is protected by the Federal Confidentiality of Alcohol and Drug Abuse Patient Records regulations: The Federal rules restrict any use of the information to criminally investigate or prosecute any alcohol or drug abuse patient.[facility] HospitalIn the event this information is protected by the Federal Confidentiality of Alcohol and Drug Abuse Patient Records regulations: The Federal rules restrict any use of the information to criminally investigate or prosecute any alcohol or drug abuse patient.[facility] HospitalIn the event this information is protected by the Federal Confidentiality of Alcohol and Drug Abuse Patient Records regulations: The Federal rules restrict any use of the information to criminally investigate or prosecute any alcohol or drug abuse patient.[facility] HospitalIn the event this information is protected by the Federal Confidentiality of Alcohol and Drug Abuse Patient Records regulations: The Federal rules restrict any use of the information to criminally investigate or prosecute any alcohol or drug abuse patient.[facility] HospitalIn the event this information is protected by the Federal Confidentiality of Alcohol and Drug Abuse Patient Records regulations: The Federal rules restrict any use of the information to criminally investigate or prosecute any alcohol or drug abuse patient.[facility] HospitalIn the event this information is protected by the Federal Confidentiality of Alcohol and Drug Abuse Patient Records regulations: The Federal rules restrict any use of the information to criminally investigate or prosecute any alcohol or drug abuse patient.[facility] HospitalIn the event this information is protected by the Federal Confidentiality of Alcohol and Drug Abuse Patient Records regulations: The Federal rules restrict any use of the information to criminally investigate or prosecute any alcohol or drug abuse patient.[facility] HospitalIn the event this information is protected by the Federal Confidentiality of Alcohol and Drug Abuse Patient Records regulations: The Federal rules restrict any use of the information to criminally investigate or prosecute any alcohol or drug abuse patient.[facility] HospitalIn the event this information is protected by the Federal Confidentiality of Alcohol and Drug Abuse Patient Records regulations: The Federal rules restrict any use of the information to criminally investigate or prosecute any alcohol or drug abuse patient.[facility] HospitalIn the event this information is protected by the Federal Confidentiality of Alcohol and Drug Abuse Patient Records regulations: The Federal rules restrict any use of the information to criminally investigate or prosecute any alcohol or drug abuse patient.[facility] HospitalIn the event this information is protected by the Federal Confidentiality of Alcohol and Drug Abuse Patient Records regulations: The Federal rules restrict any use of the information to criminally investigate or prosecute any alcohol or drug abuse patient.[facility] HospitalIn the event this information is protected by the Federal Confidentiality of Alcohol and Drug Abuse Patient Records regulations: The Federal rules restrict any use of the information to criminally investigate or prosecute any alcohol or drug abuse patient.[facility] HospitalIn the event this information is protected by the Federal Confidentiality of Alcohol and Drug Abuse Patient Records regulations: The Federal rules restrict any use of the information to criminally investigate or prosecute any alcohol or drug abuse patient.[facility] HospitalIn the event this information is protected by the Federal Confidentiality of Alcohol and Drug Abuse Patient Records regulations: The Federal rules restrict any use of the information to criminally investigate or prosecute any alcohol or drug abuse patient.[facility] HospitalIn the event this information is protected by the Federal Confidentiality of Alcohol and Drug Abuse Patient Records regulations: The Federal rules restrict any use of the information to criminally investigate or prosecute any alcohol or drug abuse patient.[facility] HospitalIn the event this information is protected by the Federal Confidentiality of Alcohol and Drug Abuse Patient Records regulations: The Federal rules restrict any use of the information to criminally investigate or prosecute any alcohol or drug abuse patient.[facility] HospitalIn the event this information is protected by the Federal Confidentiality of Alcohol and Drug Abuse Patient Records regulations: The Federal rules restrict any use of the information to criminally investigate or prosecute any alcohol or drug abuse patient.[facility] HospitalIn the event this information is protected by the Federal Confidentiality of Alcohol and Drug Abuse Patient Records regulations: The Federal rules restrict any use of the information to criminally investigate or prosecute any alcohol or drug abuse patient.[facility] HospitalIn the event this information is protected by the Federal Confidentiality of Alcohol and Drug Abuse Patient Records regulations: The Federal rules restrict any use of the information to criminally investigate or prosecute any alcohol or drug abuse patient.[facility] HospitalIn the event this information is protected by the Federal Confidentiality of Alcohol and Drug Abuse Patient Records regulations: The Federal rules restrict any use of the information to criminally investigate or prosecute any alcohol or drug abuse patient.[facility] HospitalIn the event this information is protected by the Federal Confidentiality of Alcohol and Drug Abuse Patient Records regulations: The Federal rules restrict any use of the information to criminally investigate or prosecute any alcohol or drug abuse patient.[facility] HospitalIn the event this information is protected by the Federal Confidentiality of Alcohol and Drug Abuse Patient Records regulations: The Federal rules restrict any use of the information to criminally investigate or prosecute any alcohol or drug abuse patient.[facility] HospitalIn the event this information is protected by the Federal Confidentiality of Alcohol and Drug Abuse Patient Records regulations: The Federal rules restrict any use of the information to criminally investigate or prosecute any alcohol or drug abuse patient.[facility] HospitalIn the event this information is protected by the Federal Confidentiality of Alcohol and Drug Abuse Patient Records regulations: The Federal rules restrict any use of the information to criminally investigate or prosecute any alcohol or drug abuse patient.[facility] HospitalIn the event this information is protected by the Federal Confidentiality of Alcohol and Drug Abuse Patient Records regulations: The Federal rules restrict any use of the information to criminally investigate or prosecute any alcohol or drug abuse patient.[facility] HospitalIn the event this information is protected by the Federal Confidentiality of Alcohol and Drug Abuse Patient Records regulations: The Federal rules restrict any use of the information to criminally investigate or prosecute any alcohol or drug abuse patient.[facility] HospitalIn the event this information is protected by the Federal Confidentiality of Alcohol and Drug Abuse Patient Records regulations: The Federal rules restrict any use of the information to criminally investigate or prosecute any alcohol or drug abuse patient.[facility] HospitalIn the event this information is protected by the Federal Confidentiality of Alcohol and Drug Abuse Patient Records regulations: The Federal rules restrict any use of the information to criminally investigate or prosecute any alcohol or drug abuse patient.[facility] HospitalIn the event this information is protected by the Federal Confidentiality of Alcohol and Drug Abuse Patient Records regulations: The Federal rules restrict any use of the information to criminally investigate or prosecute any alcohol or drug abuse patient.[facility] HospitalIn the event this information is protected by the Federal Confidentiality of Alcohol and Drug Abuse Patient Records regulations: The Federal rules restrict any use of the information to criminally investigate or prosecute any alcohol or drug abuse patient.[facility] HospitalIn the event this information is protected by the Federal Confidentiality of Alcohol and Drug Abuse Patient Records regulations: The Federal rules restrict any use of the information to criminally investigate or prosecute any alcohol or drug abuse patient.[facility] HospitalIn the event this information is protected by the Federal Confidentiality of Alcohol and Drug Abuse Patient Records regulations: The Federal rules restrict any use of the information to criminally investigate or prosecute any alcohol or drug abuse patient.[facility] HospitalIn the event this information is protected by the Federal Confidentiality of Alcohol and Drug Abuse Patient Records regulations: The Federal rules restrict any use of the information to criminally investigate or prosecute any alcohol or drug abuse patient.[facility] HospitalIn the event this information is protected by the Federal Confidentiality of Alcohol and Drug Abuse Patient Records regulations: The Federal rules restrict any use of the information to criminally investigate or prosecute any alcohol or drug abuse patient.[facility] HospitalIn the event this information is protected by the Federal Confidentiality of Alcohol and Drug Abuse Patient Records regulations: The Federal rules restrict any use of the information to criminally investigate or prosecute any alcohol or drug abuse patient.[facility] HospitalIn the event this information is protected by the Federal Confidentiality of Alcohol and Drug Abuse Patient Records regulations: The Federal rules restrict any use of the information to criminally investigate or prosecute any alcohol or drug abuse patient.[facility] HospitalIn the event this information is protected by the Federal Confidentiality of Alcohol and Drug Abuse Patient Records regulations: The Federal rules restrict any use of the information to criminally investigate or prosecute any alcohol or drug abuse patient.[facility] HospitalIn the event this information is protected by the Federal Confidentiality of Alcohol and Drug Abuse Patient Records regulations: The Federal rules restrict any use of the information to criminally investigate or prosecute any alcohol or drug abuse patient.[facility] HospitalIn the event this information is protected by the Federal Confidentiality of Alcohol and Drug Abuse Patient Records regulations: The Federal rules restrict any use of the information to criminally investigate or prosecute any alcohol or drug abuse patient.[facility] HospitalIn the event this information is protected by the Federal Confidentiality of Alcohol and Drug Abuse Patient Records regulations: The Federal rules restrict any use of the information to criminally investigate or prosecute any alcohol or drug abuse patient.[facility] HospitalIn the event this information is protected by the Federal Confidentiality of Alcohol and Drug Abuse Patient Records regulations: The Federal rules restrict any use of the information to criminally investigate or prosecute any alcohol or drug abuse patient.[facility] HospitalIn the event this information is protected by the Federal Confidentiality of Alcohol and Drug Abuse Patient Records regulations: The Federal rules restrict any use of the information to criminally investigate or prosecute any alcohol or drug abuse patient.[facility] HospitalIn the event this information is protected by the Federal Confidentiality of Alcohol and Drug Abuse Patient Records regulations: The Federal rules restrict any use of the information to criminally investigate or prosecute any alcohol or drug abuse patient.[facility] HospitalIn the event this information is protected by the Federal Confidentiality of Alcohol and Drug Abuse Patient Records regulations: The Federal rules restrict any use of the information to criminally investigate or prosecute any alcohol or drug abuse patient.[facility] HospitalIn the event this information is protected by the Federal Confidentiality of Alcohol and Drug Abuse Patient Records regulations: The Federal rules restrict any use of the information to criminally investigate or prosecute any alcohol or drug abuse patient.[facility] Inactive Administered Medications - up to 3 most recent administrations Administered Medications (un recognized section and content) Medication Order MAR Action Action Date Dose Rate Site keTORolac 30 mg injection (Toradol) 30 mg, INTRAMUSCULAR, ONCE, 1 dose, On Fri06/04/23 at 1330, Ketorolac (Toradol) is indicated for the short-term (up to 5 days) management of moderately severe acute pain. Continuation of ketorolac (Toradol) beyond 5 days increases the risk of developing serious adverse events. Please verify the duration of therapy for ketorolac (Toradol), If ordered PRN for pain, patient/guardian may elect to receive this medication for higher pain levels INSTEAD of the opioid, if preferred: Yes Given 06/04/2023 1:25 PM EST 30 mg Deltoid, Left FOR RECORDS PERTAINING TO PATIENTS WHO ARE OR HAVE BEEN ENROLLED IN A CHEMICAL DEPENDENCY/SUBSTANCEABUSE PROGRAM, SOME INFORMATION MAY BE OMITTED. This clinical summary was aggregated from multiple sources. Caution should be exercised in using it in the provision of clinical care. This summary normalizes information from multiple sources, and as a consequence, information in this document may materially change the coding, format and clinical context of patient data. In addition, data may be omitted in some cases. CLINICAL DECISIONS SHOULD BE BASED ON THE PRIMARY CLINICAL RECORDS. [employer] provides no warranty or guarantee of the accuracy or completeness of information in this document.
--- NOTE | 2025-01-06 01:47 | EX.ED.DYSGE1 ---
HPI History of Present Illness Chief Complaint: Lower Extremity Injury Informant: patient Narrative Narrative: Patient is a 59-year-old male with past med history of hypertension hyperlipidemia COPD and reported peripheral vascular disease. He states he was scheduled to have a laser treatment in [place] on January 06 secondary to his peripheral vascular disease and varicosities. He states the procedure was postponed till January 13. He states that he then noted increasing pain to his bilateral legs. He states he feels the pain from his hips down to his feet. He states there is been no trauma. He states that he thought he could tolerate the pain as he would be having his procedure which would in theory resolve his symptoms. But now that the procedure has been pushed back in another week he does not feel he can tolerate the pain for that long and states he has difficulty walking because of the pain. Therefore EMS was called and he was brought in for evaluation [facility] Medical History (Updated 01/06/25 @ 05:[address] Domenic Senior, DO) History of COPD Pancreatitis, chronic GERD (gastroesophageal reflux disease) Chronic deep vein thrombosis (DVT) of calf muscle vein of right lower extremity Homelessness Hyperlipemia HTN (hypertension) CAD (coronary artery disease) History of [place] (myocardial infarction) Lumbar stenosis [place] (obstructive sleep apnea) Asthma Myocardial infarct Home Medications ?Medication ?Instructions ?Recorded ?Last Taken ?Type albuterol sulfate 90 mcg/actuation 1 inh inhalation BID SOB 11/09/21 11/09/21 History aerosol inhaler (Ventolin HFA) aspirin 81 mg tablet,delayed 81 mg PO DAILY 04/12/22 Unknown History release atorvastatin 80 mg tablet 80 mg PO QHS 04/12/22 Unknown History metoprolol tartrate 25 mg tablet 25 mg PO DAILY 04/12/22 Unknown History budesonide 160 mcg-glycopyr 9 2 inh inhalation BID 02/09/23 Unknown History mcg-formot 4.8 mcg/actuation HFA inhaler (Breztri Aerosphere) sulfamethoxazole 800 1 tab PO BID #14 TABLETS 02/09/23 Unknown Rx mg-trimethoprim 160 mg tablet chlorthalidone 25 mg tablet 25 mg PO DAILY 10/20/23 Unknown History fluticasone propionate 50 2 spray intranasal QDAY 09/28/24 Unknown History mcg/actuation nasal spray,suspension (Flonase Allergy Relief) lisinopril 5 mg tablet 5 mg PO QDAY 09/28/24 Unknown History montelukast 10 mg tablet 10 mg PO QDAY 09/28/24 Unknown History omeprazole 40 mg capsule,delayed 40 mg PO QDAY 09/28/24 Unknown History release rivaroxaban 20 mg tablet (Xarelto) 20 mg PO QPM 09/28/24 Unknown History gabapentin 300 mg capsule 300 mg PO TID 14 days #42 caps 01/06/25 Unknown Rx oxycodone-acetaminophen 5 mg-325 1 tab PO Q6H PRN pain 3 days #12 01/06/25 Unknown Rx mg tablet (Percocet) tabs Allergy/AdvReac Type Severity Reaction Status Date / Time cabbage Allergy can not Verified 01/05/25 22:05 swallow lettuce Allergy can not Verified 01/05/25 22:05 swallow onion Allergy Vomiting Verified 01/05/25 22:05 peanut Allergy Anaphylaxis Verified 01/05/25 22:05 garlic AdvReac Mild Abd Verified 01/05/25 22:05 cramps/diarrhea Family History Father No problems noted. Surgical History History of lumbar laminectomy H/O hernia repair Stented coronary artery Social History housing: homeless other: Patient is currently living out of his car and is supposed to be on oxygen Smoking Status: Former smoker alcohol intake: never substance use type: does not use ROS ROS ED Constitutional Constitutional ED: Denies chills or fever(s) Eyes Eyes: Denies change in vision ENT ENT ED: Denies sore throat Cardiovascular Cardiovascular: Denies chest pain Respiratory/Chest Respiratory/Chest: Denies cough or dyspnea Gastrointestinal Gastrointestinal: Denies abdominal pain, diarrhea, nausea or vomiting Genitourinary Genitourinary ED: Denies dysuria Musculoskeletal Musculoskeletal: Reports myalgias and other Details: Bilateral leg pain Integumentary Denies rash Neurologic Neurologic: Denies headache(s) Hematologic/Lymphatic Hematologic/Lymphatic: Denies easy bleeding or easy bruising EXAM Physical Exam Const Vital Signs: 01/05/25 22:05 01/06/25 00:07 01/06/25 02:06 Temperature 97.6 F L 98 F Temperature Source Temporal Pulse Rate 93 69 69 Respiratory Rate 14 14 14 Blood Pressure 130/80 H 139/76 H 139/76 H Blood Pressure Mean 96 97 97 Pulse Ox 93 97 97 Oxygen Delivery Method Room Air Room Air Positive well nourished and well developed General Appearance ED: well developed; Negative for pallor HEENT HEENT Narrative: Normocephalic atraumatic Eyes PERRL and EOMs intact bilaterally General Eye ED: Negative for scleral icterus Neck supple Neck Narrative: No nuchal rigidity or meningeal signs Resp normal respiratory effort Resp Narrative: Breath sounds are diminished throughout with faint expiratory wheeze and rhonchi in the bilateral lower lobes consistent with COPD but no signs of respiratory distress Cardio regular rate and regular rhythm Back/Spine Back/Spine Narrative: No saddle anesthesia; negative straight leg raise; no clonus or Babinski; patellar reflexes are plus 1 out of 4 bilaterally Extremity Extremity Narrative: Bilateral lower extremities are neurovascularly intact Capillary refill is less than 3-second Dorsalis pedis pulse and posterior tibial pulses are plus 2 out of 4 bilaterally There are varicosities present bilaterally throughout the right and left leg All compartments are soft and compressible going against compartment syndrome Neuro oriented x3, CN's II-XII intact bilaterally and no sensory deficits noted Sensorium / Orientation: alert Psych mental status grossly normal Skin no wounds Skin Narrative: Varicosities to the bilateral lower legs without secondary findings to suggest infection General Skin Exam: Negative for jaundice or pallor MDM MDM MDM Narrative Medical decision making narrative: Patient arrived to the ER mildly hypertensive but has a past medical history of this and otherwise vitals are stable. He reported that this pain has been recurrent/chronic. He denies any recent trauma and there are no physical exam findings to suggest this. As the pain is bilateral I have low concern that this is lumbar radiculopathy. He does not have history or physical exam findings to suggest cauda equina or epidural abscess. He has no findings to suggest acute arterial occlusion or acute DVT. Based on his pain and weakness from the pain I did elect to perform basic laboratory studies to look for leukocytosis or left shift regarding potential infection or elevation to the lactic acid value regarding ischemia or electrolyte abnormality. Labs revealed no clinically significant finding. The patient was given IV Dilaudid as well as gabapentin and after receiving the medication he was able to fall asleep. Therefore as his pain is chronic in nature there is no findings of infection or ischemia and symptoms have improved with the provided medication I do not feel there is need for admission. He will be given symptomatic care and is otherwise safe for discharge. History & Record Review Discussion w/independent historian: Patient Lab Data Attestation: I reviewed the patient's lab results. Labs: Laboratory Results - last 24 hr 01/05/25 23:45 WBC 8.6 RBC 4.53 L Hgb 11.1 L Hct 37.4 L MCV 82.6 MCH 24.5 L MCHC 29.7 L RDW Std Deviation 50.9 H RDW Coeff of Leticia 17.1 H Plt Count 342 MPV 9.7 Immature Gran % (Auto) 0.200 Neut % (Auto) 56.0 Lymph % (Auto) 21.5 [place] % (Auto) 18.8 H Eos % (Auto) 2.0 Baso % (Auto) 1.5 H Absolute Neuts (auto) 4.8 Absolute Lymphs (auto) 1.84 Nucleated RBC % 0 Sodium 138 Potassium 4.3 Chloride 101 Carbon Dioxide 27.0 Anion Gap 10 BUN 22 H Creatinine 1.51 H Estim Creat Clear Calc 59.93 Est GFR (MDRD) Non-Af 53 L BUN/Creatinine Ratio 14.7 Glucose 98 Lactic Acid 1.3 Calcium 9.0 Magnesium 2.0 Discharge Plan Triage Chief Complaint: Lower Extremity Injury ED Provider: Domenic Senior Dx/Rx/DC Orders Clinical Impression: Peripheral vascular disease, Varicose veins of both lower extremities, HTN (hypertension), Hyperlipemia, COPD (chronic obstructive pulmonary disease) Instructions: ED Peripheral Artery Disease (PAD), ED Varicose Veins Prescriptions: New gabapentin 300 mg capsule 300 mg PO TID 14 Days Qty: 42 0RF oxycodone-acetaminophen [Percocet] 5-325 mg tablet 1 tab PO Q6H PRN (Reason: pain) 3 Days Qty: 12 0RF No Action lisinopril 5 mg tablet 5 mg PO QDAY fluticasone propionate [Flonase Allergy Relief] 50 mcg/actuation spray,suspension 2 spray intranasal QDAY Rx Instructions: administer into each nostril Xarelto 20 mg tablet 20 mg PO QPM omeprazole 40 mg capsule,delayed release(DR/EC) 40 mg PO QDAY montelukast 10 mg tablet 10 mg PO QDAY albuterol sulfate [Ventolin HFA] 90 mcg/actuation HFA aerosol inhaler 1 inh INHALATION BID atorvastatin 80 mg tablet 80 mg PO QHS Patient Comments: TAKE 1 TABLET BY MOUTH AT BEDTIME aspirin 81 mg tablet,delayed release (DR/EC) 81 mg PO DAILY Patient Comments: TAKE 1 TABLET BY MOUTH DAILY metoprolol tartrate 25 mg tablet 25 mg PO DAILY Patient Comments: TAKE 1 TABLET BY MOUTH TWICE DAILY Breztri Aerosphere 160-9-4.8 mcg/actuation HFA aerosol inhaler 2 inh INHALATION BID Patient Comments: INHALE TWO (2) PUFFS BY MOUTH TWICE DAILY INSTRUCTED sulfamethoxazole-trimethoprim [sulfamethoxazole-trimethoprim] 800-160 mg tablet 1 tab PO BID Qty: 14 0RF chlorthalidone 25 mg tablet 25 mg PO DAILY Primary Care Provider: Samir Hay Referrals: Samir Hay MD [Primary Care Provider] - Activity Restrictions/Additional Instructions: Please follow-up with your family doctor and/or surgeon. Take the medication provided by the ER to help control pain and return should you have any further concerns Print Language: Slovak Disposition Disposition: Home, Self Care Discharge Date/Time: 01/06/25 05:55
[2025-01-06 02:06] VITALS: BP 139/76; PULSE 69; RESP 14; TEMP 36.6; O2SAT 97
--- NOTE | 2025-01-06 03:03 | ED.RN ---
This RN went to check if the patient had left the room in order to clean the room. However, the patient complained of nausea and requested more nausea medicine prior to leaving. The patient continues to remain seated and refuses to stand up, the patient is now complaining of dizziness. MD notified. According to Dr. Senior, this is an expected reaction d/t the medications that we gave the patient and the patient can sleep for another hour and to allow the dizziness to subside. Patient aware and agreeable to this plan.
== END 2025-01-06 05:55 | disposition home or self-care (01) ==
PROVIDERS: Emergency Provider Emergency Medicine; PCP Internal Medicine; Visit Provider Emergency Medicine
DX: I73.9 Peripheral vascular disease, unspecified (principal); J44.9 Chronic obstructive pulmonary disease, unspecified; I25.10 Atherosclerotic heart disease of native coronary artery without angina pectoris; I10 Essential (primary) hypertension; I83.93 Asymptomatic varicose veins of bilateral lower extremities; E78.5 Hyperlipidemia, unspecified; I25.2 Old myocardial infarction; G47.33 Obstructive sleep apnea (adult) (pediatric); Z87.891 Personal history of nicotine dependence; Z86.718 Personal history of other venous thrombosis and embolism; Z95.5 Presence of coronary angioplasty implant and graft
CPT/HCPCS: 80048; 83605; 83735; 85025; 96374; 96375; 96376; 99284; A4216; J2405